=== PATIENT | female | born 1955 | race Caucasian/White ===

== ENCOUNTER 2017-05-20 15:35 | Inpatient (IN) | payer MEDICARE, SELFPAY ==
[2017-05-20 15:36] VITALS: BP 137/90; PULSE 78; RESP 18; TEMP 36.6; O2SAT 99; BMI 39.9
--- NOTE | 2017-05-20 16:06 | CT_ITS ---
STUDY: CT BRAIN WITHOUT CONTRAST REASON FOR EXAM: Female, 62 years old. Headache after trauma, hypertension RADIATION DOSAGE (If Supplied By Facility): CTDIvol = ( 44.99 ) mGy, DLP = ( 762.36 ) mGycm TECHNIQUE: Transaxial CT imaging of the brain was performed without administration of intravenous contrast material. Individualized dose optimization techniques were used for this CT. COMPARISON: 2014 FINDINGS: Normal soft tissue structures. Normal calvarium. Normal size ventricles and extra-axial spaces for the patient's age. Normal white matter tracts of the cerebral hemispheres. Normal basal ganglia and thalami. Normal brainstem. Normal cerebellum. There is no intracranial hemorrhage. There are no findings of an acute ischemic infarction. Normal visualized paranasal sinuses. CT/Brain/Head without Contrast IMPRESSION: Normal unenhanced CT scan of the brain. Electronically Signed: Linwood Stone MD at 16:50 EST , Service support ,
--- NOTE | 2017-05-20 16:07 | CT_ITS ---
STUDY: CT CERVICAL SPINE WITHOUT CONTRAST REASON FOR EXAM: Female, 62 years old. Headache and neck pain after trauma RADIATION DOSAGE (If Supplied By Facility): CTDIvol = ( 30.14 ) mGy, DLP = ( 539.97 ) mGycm TECHNIQUE: High resolution transaxial imaging was performed without contrast material. Sagittal and coronal images were reconstructed. Individualized dose optimization techniques were used for this CT. COMPARISON: 2014 FINDINGS: Normal craniovertebral junction. Normal anterior atlantoaxial articulation. Normal odontoid process. Normal cervical lordosis. Normal vertebral bodies and posterior osseous elements. There is anatomic alignment of the cervical spine. No demonstrated fracture or aggressive osseous lesion. Mild posterior disc space throughout the cervical spine, no central canal stenosis, there is bilateral foraminal narrowing. Normal relationship between C7 and T1. No upper rib fracture or pneumothorax. Normal visualized soft tissue structures. CT/Spine Cervical without Contras IMPRESSION: Mild degenerative changes, no demonstrated fracture or aggressive osseous lesion Electronically Signed: Linwood Stone MD at 16:59 EST , Service support ,
--- NOTE | 2017-05-20 16:09 | ED.VISSUMM ---
- ER Visit Summary Date of Service: 05/20/17 Chief Complaint: Fall History of Present Illness: The patient is a 62 F who slipped on ice and fell to the concrete 2 days ago, hitting the left forehead, and left side of her chest. She has been having increasing pain ever since, worse to breathe, pain in the left side of her neck that hurts to move her head. Headache that is mild and intermittent, occasional nausea. No vomiting. She had no loss of consciousness. She states she was wearing a stocking cap and a cushioned her fall. She takes no anticoagulants, she takes an occasional baby aspirin for good health but does not take them much and has not taken them in the past week. No other injuries. Physical Examination: Vitals unremarkable. No acute distress. Very tender in the left anterior ribs, less so in the sternum. No crepitance or flail or deformity. Equal breath sounds present bilaterally. Lungs are clear. Heart is regular without tachycardia. Neck is tender mostly in the left paraspinal trapezius, however she has a little C6 midline tenderness as well. All 4 extremities are atraumatic and full range of motion. Her head is atraumatic, no signs of a basilar skull fracture, no tenderness or signs of trauma where she states she hit. Test Results: Chest x-ray including left ribs series shows left lower lobe infiltrate but no obvious fracture, no pneumothorax. CT head and cervical spine are negative. After these results, labs and CT thorax were added. CT shows groundglass infiltrate in both upper lobes and the left lower lobe that may be consistent with pulmonary contusion or infection, however it is said that it looks less like infiltrate/pneumonia. Mild leukocytosis at 13. Emergency Department Course and Treatment: Patient remained stable, her pulse ox is 98% on room air. She was given morphine for pain which helped. Patient states she was coughing prior to her fall, bringing up no sputum. She had no dyspnea until her injury. It is plausible that the etiology of these pulmonary radiographic findings are traumatic, it is also possible that she has developed pneumonia before her injury, and she has no pulmonary injury. The CT did not significantly help delineate that. She states she has been coughing for a total of 8 weeks, although it is not as bad as it used to be. She has dyspnea, but in no distress. Given that the CT saw bilateral upper lobe findings as well, including the right side where she had no injury, which apparently were similar to the findings in the left lower lobe, my suspicion is that this is more likely to be infectious rather than traumatic. I discussed with Dr. Augustin who is amenable to admission. Community-acquired pneumonia antibiotics are ordered, as well as an influenza swab. Disposition: Admit Impression: Community-acquired pneumonia Left ribs contusion Closed head injury Fall due to slip on ice Left cervical strain This note was generated with eSnips dictation software. It may contain incorrect words, spelling, and punctuation that were not noted in review of the chart prior to signing ED Disposition - Plan for ED Patient: Disposition: Acute Care Hospital [facility] Chief Complaint: Fall Referrals: Olivia Gates DO [Primary Care Provider] -
--- NOTE | 2017-05-20 16:12 | ED.DCSUM_ITS ---
- ER Visit Summary Date of Service: 05/20/17 Chief Complaint: Fall History of Present Illness: The patient is a 62 F who slipped on ice and fell to the concrete 2 days ago, hitting the left forehead, and left side of her chest. She has been having increasing pain ever since, worse to breathe, pain in the left side of her neck that hurts to move her head. Headache that is mild and intermittent, occasional nausea. No vomiting. She had no loss of consciousness. She states she was wearing a stocking cap and a cushioned her fall. She takes no anticoagulants, she takes an occasional baby aspirin for good health but does not take them much and has not taken them in the past week. No other injuries. Physical Examination: Vitals unremarkable. No acute distress. Very tender in the left anterior ribs, less so in the sternum. No crepitance or flail or deformity. Equal breath sounds present bilaterally. Lungs are clear. Heart is regular without tachycardia. Neck is tender mostly in the left paraspinal trapezius, however she has a little C6 midline tenderness as well. All 4 extremities are atraumatic and full range of motion. Her head is atraumatic, no signs of a basilar skull fracture, no tenderness or signs of trauma where she states she hit. Test Results: Chest x-ray including left ribs series shows left lower lobe infiltrate but no obvious fracture, no pneumothorax. CT head and cervical spine are negative. After these results, labs and CT thorax were added. CT shows groundglass infiltrate in both upper lobes and the left lower lobe that may be consistent with pulmonary contusion or infection, however it is said that it looks less like infiltrate/pneumonia. Mild leukocytosis at 13. Emergency Department Course and Treatment: Patient remained stable, her pulse ox is 98% on room air. She was given morphine for pain which helped. Patient states she was coughing prior to her fall, bringing up no sputum. She had no dyspnea until her injury. It is plausible that the etiology of these pulmonary radiographic findings are traumatic, it is also possible that she has developed pneumonia before her injury, and she has no pulmonary injury. The CT did not significantly help delineate that. She states she has been coughing for a total of 8 weeks, although it is not as bad as it used to be. She has dyspnea, but in no distress. Given that the CT saw bilateral upper lobe findings as well , including the right side where she had no injury, which apparently were similar to the findings in the left lower lobe, my suspicion is that this is more likely to be infectious rather than traumatic. I discussed with Dr. Augustin who is amenable to admission. Community-acquired pneumonia antibiotics are ordered, as well as an influenza swab. Disposition: Admit Impression: Community-acquired pneumonia Left ribs contusion Closed head injury Fall due to slip on ice Left cervical strain This note was generated with Sk[employer]ap dictation software. It may contain incorrect words, spelling, and punctuation that were not noted in review of the chart prior to signing ED Disposition - Plan for ED Patient: Disposition: Acute Care Hospital [facility] Chief Complaint: Fall Referrals: Olivia Gates DO [Primary Care Provider] -
--- NOTE | 2017-05-20 16:25 | RAD_ITS ---
STUDY: X-RAY - UNILATERAL RIBS ( LEFT ) WITH CHEST REASON FOR EXAM: Female, 62 years old. Left-sided rib pain after fall TECHNIQUE - RIBS: 4 view(s) of the ribs. TECHNIQUE - CHEST: Single PA view of the chest. COMPARISON: None. FINDINGS - RIBS: There is severe demineralization of the osseous structures which diminishes the diagnostic sensitivity of this examination, however there is no visualized rib fracture. FINDINGS - CHEST: Lungs are expanded. Right lung is clear. There is opacification in the left lower lobe likely pneumonia but a pulmonary contusion cannot be excluded. There is no demonstrated pleural abnormality. Normal size heart. Normal mediastinum and dave. Normal visualized pulmonary arteries. Normal visualized aortic arch and descending thoracic aorta. Normal visualized thoracic spine. Normal visualized ribs, clavicles, and shoulders. There is no demonstrated abnormality of the visualized soft tissue structures of the upper abdomen. RAD/Ribs Uni Min 3V w/PA Chest IMPRESSION: RIBS: Demineralization of the osseous structures, no demonstrated acute displaced rib fracture, pleural thickening, or pneumothorax CHEST: Opacification the left lower lung field likely infiltrate but pulmonary contusion cannot be completely excluded. Electronically Signed: Linwood Stone MD at 16:56 EST , Service support ,
[2017-05-20] MEDS: oxyCODONE 5 MG Tablet PO (16:37)
[2017-05-20 18:02] VITALS: BP 146/72; PULSE 68; RESP 16; O2SAT 94
--- NOTE | 2017-05-20 19:08 | CT_ITS ---
STUDY: CT CHEST WITHOUT CONTRAST REASON FOR EXAM: Female, 62 years old. Trauma. Sternal pain and left rib pain. RADIATION DOSAGE (If Supplied By Facility): CTDIvol = ( 19.81 ) mGy, DLP = ( 668.39 ) mGycm TECHNIQUE: Transaxial imaging was performed without the administration of intravenous contrast material. Coronal and sagittal reformatted images were created. Individualized dose optimization techniques were used for this CT. COMPARISON: None FINDINGS: There is patchy groundglass opacity noted in the right upper lobe, left upper lobe and left lower lobe. There are no focal infiltrates or pleural effusions. There are no pulmonary nodules or masses. There is no pneumothorax. The heart and pericardium are within normal limits. There is no thoracic lymphadenopathy. There is no evidence of thoracic aortic aneurysm. Images through the upper abdomen demonstrate no significant abnormality. The visualized osseous structures are intact. There is no acute fracture or dislocation. CT/Chest without Contrast IMPRESSION: Patchy ground glass opacity in the right upper lobe, left upper lobe and left lower lobe. This may be due to infection, inflammation or edema. In the setting of trauma, pulmonary contusion is also in the differential diagnosis. No evidence of fracture or dislocation in the visualized thoracic osseous structures. Electronically Signed: Barrie Smith, at 20:02 EST Tel , Service support ,
[2017-05-20 19:40] LABS: Absolute Lymphocyte Count 4.67 X10^3/ul (0.83-4.51); Absolute Neutrophil Count 7.6 X10^3/uL (2.0-7.7); Basophil# 0.03 X10^3/uL; Basophil% 0.2 % (0-1); Eosinophil# 0.15 X10^3/uL; Eosinophils% 1.1 % (0-5); Hematocrit 41.1 % (37-47); Hemoglobin 13.1 g/dl (12.0-15.0); Lymphocyte # 4.67 X10^3/ul (4.0); Lymphocyte % 34.7 % (19-41); Mean Corp Hgb Conc 31.9 g/gl (32-36); Mean Corpuscular Hgb 27.3 pg (27.0-32.0); Mean Corpuscular Volume 85.8 fL (81-99); Mean Platelet Vol. 9.2 fl (6.2-12.0); Monocyte# 0.93 X10^3/uL; Monocyte% 6.9 % (0-10); Neutrophil # 7.57 X10^3/uL (2.7-7.7); Neutrophil % 56.4 % (47-70); POSITIVE COUNT NO; POSITIVE DIFFERENTIAL NO; POSITIVE MORPHOLOGY NO; Platelet Count 300 K/mm3 (150-450); RBC Distribution Width CV 15.4 % (11.6-14.6); RBC Distribution Width SD 48.9 fl (35.1-43.9); Red Blood Count 4.79 M/mm3 (4.2-5.4); White Blood Count 13.4 K/mm3 (4.4-11.0)
[2017-05-20 20:00] VITALS: BP 122/62; PULSE 69; RESP 16; O2SAT 98
[2017-05-20 20:02] LABS: Anion Gap 8 (5-15); BUN 19 mg/dL (7-18); BUN/Creat Ratio 23.3 RATIO (10-20); Calcium,Total 8.8 mg/dL (8.5-10.1); Chloride 106 mmol/L (98-107); Creatinine, Serum 0.81 mg/dL (0.55-1.02); EST Glomerular Filtration Rate 75 mL/min (>60); Est Glom Filt Rate - Afr Amer 91 mL/min (>60); Estimated Creatinine Clearance 56.23 ml/min; Glucose 88 mg/dL (74-106); Potassium 3.6 mmol/L (3.5-5.1); Sodium Level 142 mmol/L (136-145)
[2017-05-20 21:26] VITALS: BP 132/52; PULSE 75; RESP 18; TEMP 36.8; O2SAT 95
[2017-05-20] MEDS: Ceftriaxone 1 GM/50 ML BAG IV (21:26)
--- NOTE | 2017-05-20 22:10 | HP.PCM_ITS ---
Problem List (1) CAP (community acquired pneumonia) Status: Acute (2) COCHRAN (dyspnea on exertion) Status: Acute (3) GERD (gastroesophageal reflux disease) Status: Acute (4) HLD (hyperlipidemia) Status: Acute (5) HTN (hypertension) Status: Acute (6) Mixed anxiety and depressive disorder Status: Acute (7) Morbid obesity with BMI of 40.0-44.9, adult Status: Acute (8) Chronic back pain Status: Chronic History of Present Illness Date of Admission: 05/20/17 Chief Complaint: CAP The patient is a 62 year old female w/ h/o GERD, HTN, and chronic back pain admitted for CAP. She slipped on ice 2 days ago and fell onto her left side on concrete. She hit her left forehead, and side of her chest. She has left sided chest pain ever since the fall. Deep breathe worsened the pain. Nothing appeared to improve the pain. Pain is sharp and episodic. Pain is severe. The frequency and intensity of the pain have increased. She was also recently recovered from acute bronchitis. She was treated initially with steroid but has been off steroid for weeks. Her cough has persisted and worsened. Past Medical History Past Medical History (Chronic Problems): Chronic Problems Chronic back pain (Chronic) Allergies No Known Allergies Allergy (Verified 05/20/17 15:38) Home Medications: Ambulatory Orders Medication Instructions Recorded Paroxetine HCl [Paxil] 60 mg PO DAILY 01/29/13 Pregabalin [Lyrica] 150 mg PO BID 01/29/13 Trazodone HCl [Desyrel] 100 mg PO QHS 01/29/13 Hydrocodone/Acetaminophen [Vicodin 1 - 2 tablet PO BID 10/16/13 5-300 mg Tablet] Esomeprazole Mag Trihydrate 40 mg PO QHS 05/16/14 [Nexium] Losartan Potassium [Cozaar] 50 mg PO DAILY 05/16/14 Levothyroxine [Synthroid] 50 mcg PO DAILY 10/03/14 Naproxen [Naprosyn] 500 mg PO BID #20 tablet 06/18/15 Lorazepam [Ativan] 2 mg PO BID 10/11/16 Mometasone Furoate [Nasonex] 2 spray NASAL QHS 10/11/16 Albuterol Inhaler [Ventolin Hfa 1 - 2 puff INHALATION Q6H PRN PRN 05/20/17 (SP)] Cholecalciferol (Vitamin D3) 50,000 units PO KEITA 05/20/17 [Vitamin D3] Pantoprazole Sodium [Protonix] 40 mg PO DAILY 05/20/17 Surgical History: cholecystectomy, herniorrhaphy, hysterectomy, - Psychiatric History: Anxiety, Depression 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 Smoking Status: Never smoker Alcohol: None Drugs: None - *Family History Maternal History Items: No pertinent history Review of Systems Constitutional: Denies: Chills, Fever, Weight Change HEENT: Denies: Head Aches, Sinus Congestion, Sinus Drainage Cardiovascular: Denies: Chest Pain, Palpitations Respiratory: Denies: Cough, Shortness of breath at rest, Sputum production Gastrointestinal: Denies: Abdominal Pain, Nausea, Vomiting Genitourinary: Denies: Dysuria Musculoskeletal: Denies: Joint Pain, Joint Tenderness Skin: Denies: Rash, Wounds Neurological: Denies: Numbness, Tingling, Focal weakness Psychiatric: Denies: Anxiety, Depression, Homicidal Ideations, Suicidal Ideations Hematologic/ Lymphatic: Denies: Easy Bruising, Easy Bleeding VTE Information - Inpt Only VTE Present on Admission: No VTE Mechan Device Prophylaxis: SCD's VTE Pharm Prophylaxis ordered?: Yes Patient Problems: Active and Suspected Problems CAP (community acquired pneumonia) (Acute) - Physical Exam General: Alert, Oriented x3, Cooperative HEENT: Atraumatic, PERRLA, EOMI, Normocephalic Neck: Supple, No JVD, Negative Carotid Bruits Lungs: Clear to auscultation, Normal air movement Cardiovascular: Regular rate, No murmurs Abdomen: Bowel Sounds Present, Soft, Non Tender Extremities: No edema, Capillary Refill Less than 3 Seconds Skin: No rashes, No breakdown Musculoskeletal: No Tenderness to Palpation of Joints or Extremities Neurological: Cranial nerves II-XII grossly intact Psych/Mental Status: Normal Affect, Appropriate Vital Signs Temp Pulse Resp BP Pulse Ox 97.9 F 69 16 122/62 H 98 05/20/17 15:36 05/20/17 20:00 05/20/17 20:00 05/20/17 20:00 05/20/17 20:00 Assessment/Plan Active and Suspected Problems CAP (community acquired pneumonia) (Acute) 62 year old female w/ h/o GERD, HTN, and chronic back pain admitted for CAP. 1) CAP: Will start ceftriaxone and azithromycin. Cultures pending. CT concerning for contusion vs infiltrate. Monitor. 2) Chest pain: Probably contusion vs infection. Supportive care. 3) HTN: Resume home meds. Monitor. 4) Prophylaxis: Heparin / SCD.
[2017-05-20 22:17] VITALS: BP 119/63; PULSE 76; RESP 16; O2SAT 92
[2017-05-20 23:25] VITALS: BP 119/61; PULSE 75; RESP 18; TEMP 36.5; O2SAT 96
[2017-05-20 23:29] VITALS: BMI 39.7
[2017-05-20 23:32] VITALS: BMI 39.8
[2017-05-21] VITALS (8 sets, daily range): BP systolic 109–145; BP diastolic 57–81; PULSE 62–78; RESP 14–18; TEMP 36.3–36.7; O2SAT 95–98
[2017-05-21] MEDS: 0.9% Normal Saline 1,000 ML 100 ML IV ×3 (00:17→20:54)
[2017-05-21] MEDS: Albuterol 2.5 MG/3 ML VIAL.NEB. INHALATION ×4 (00:28→19:04)
[2017-05-21] MEDS: Pantoprazole Sodium 40 MG Tablet PO ×3 (00:53→22:29)
[2017-05-21] MEDS: traZODone 50 MG Tablet PO (00:53)
[2017-05-21] MEDS: Pregabalin 75 MG Capsule 150 MG PO ×3 (00:53→22:29)
[2017-05-21] MEDS: LORazepam 1 MG Tablet PO ×2 (00:53→10:33)
[2017-05-21 03:35] LABS: Color, Urine Straw (Yellow); Glucose, Dipstick Normal (Normal); Ketone-Dipstick 5 mg/dl (Negative); Leukocyte Esterase-Dipstick Negative /ul (Negative); Nitrite-Dipstick Negative (Negative); Occult Blood-Urine Negative /ul (Negative); Protein-Dipstick Negative (Negative); Urine Bilirubin Dipstick Negative (Negative); Urine Clarity Clear (Clear); Urine Urobilinogen Normal (Normal)
[2017-05-21] MEDS: Levothyroxine 25 MCG TABLET PO (05:22)
--- NOTE | 2017-05-21 05:30 | RAD_ITS ---
STUDY: X-RAY CHEST REASON FOR EXAM: Female, 62 years old. Pain under breast with SOB TECHNIQUE: Frontal and lateral views of the chest. COMPARISON: May 20 FINDINGS: Improving left basilar aeration. Improving right midlung atelectasis. There is no demonstrated pleural abnormality. Normal size heart. Normal mediastinum and dave. Normal visualized pulmonary arteries. Normal visualized aortic arch and descending thoracic aorta. There are diffuse degenerative changes of the visualized thoracic spine. Normal visualized ribs, clavicles, and shoulders. There is no demonstrated abnormality of the visualized soft tissue structures of the upper abdomen. RAD/Chest PA and Lateral IMPRESSION: Improving left basilar aeration. Improving right midlung atelectasis. Electronically Signed: Tryo Shea MD at 6:05 EST Tel , Service support ,
[2017-05-21] MEDS: Budesonide Respules 0.5 MG/2 ML AMPUL.NEB. INHALATION ×2 (06:50→19:04)
--- NOTE | 2017-05-21 08:44 | PCM.PROGNOTE ---
Patient Problems: Active and Suspected Problems CAP (community acquired pneumonia) (Acute) Subjective: Chief complaint: Follow-up after admission for mechanical fall, left lateral chest pain/confusion, closed head injury and suspected community-acquired pneumonia. Patient seen and examined. No acute events overnight. Today, she is feeling better. Left lateral chest pain is getting better. Now, she is able to take a deep breaths. Reported mild cough, no sputum production. Denies fever or chills. Denied headache, vision changes. Her vital signs are stable, afebrile, pulse ox is 96% on room air. - Physical Exam General: Alert, Oriented x3, Cooperative, No apparent distress HEENT: Atraumatic, PERRLA, EOMI Oral: Moist Mucosa, No Gingival or Mucosal Lesions/ Ulcerations Neck: Supple, No JVD, Negative Carotid Bruits, Trachea Midline, Thyroid Normal Size and Texture Lungs: Clear to auscultation, No rhonchi, No wheeze, No rales, Diminished, - - Decreased breath sounds at the bases, otherwise clear. Cardiovascular: Regular rate, Regular Rhythm, Normal S1, Normal S2, No murmurs Abdomen: Bowel Sounds Present, Soft, Non Tender, Non-Distended, No Hepato-splenomegaly Extremities: No clubbing, No cyanosis, No edema Skin: No rashes, No breakdown Lymphatic: No Cervical, Supraclavicular, or Inguinal Adenopathy Neurological: Cranial nerves II-XII grossly intact, Motor Exam 5/5 strength throughout Psych/Mental Status: Normal Affect, Appropriate, Alert and oriented to time, place, person, mood and affect Vital Signs Temp Pulse Resp BP Pulse Ox 97.8 F 64 16 109/57 L 96 05/21/17 05:15 05/21/17 06:48 05/21/17 06:48 05/21/17 05:15 05/21/17 05:15 Oxygen Delivery Method Room Air Weight: 217 lb 6.012 oz Body Mass Index (BMI) 39.7 Intake and Output for Last 24 Hours 05/19/17 05/20/17 05/21/17 23:59 23:59 23:59 Intake Total 492 / 492 Balance 492 / 492 Microbiology Past 72 Hours 05/21/17 00:16 Streptococcus pneumoniae Antigen (M - Final Urine Catheter - Catheter 05/21/17 00:16 Legionella Antigen - Final Urine Catheter - Catheter Laboratory Tests Past 24 Hrs 05/21/17 00:16 Urine Color Straw Urine Clarity Clear Urine pH 6.0 Ur Specific Falcon 1.010 Urine Protein Negative Urine Glucose (UA) Normal Urine Ketones 5 H Urine Occult Blood Negative Urine Nitrite Negative Urine Bilirubin Negative Urine Urobilinogen Normal Ur Leukocyte Esterase Negative Clinical Impression(s) from Imaging Studies Brain CT 05/20/17 16:06 IMPRESSION: Normal unenhanced CT scan of the brain. Electronically Signed: Linwood Stone MD at 16:50 EST , Service support , Cervical Spine CT 05/20/17 16:07 IMPRESSION: Mild degenerative changes, no demonstrated fracture or aggressive osseous lesion Electronically Signed: Linwood Stone MD at 16:59 EST , Service support , Ribs w/Chest X-Ray 05/20/17 16:25 IMPRESSION: RIBS: Demineralization of the osseous structures, no demonstrated acute displaced rib fracture, pleural thickening, or pneumothorax CHEST: Opacification the left lower lung field likely infiltrate but pulmonary contusion cannot be completely excluded. Electronically Signed: Linwood Stone MD at 16:56 EST , Service support , Chest CT 05/20/17 19:08 IMPRESSION: Patchy ground glass opacity in the right upper lobe, left upper lobe and left lower lobe. This may be due to infection, inflammation or edema. In the setting of trauma, pulmonary contusion is also in the differential diagnosis. No evidence of fracture or dislocation in the visualized thoracic osseous structures. Electronically Signed: Barrie Smith, at 20:02 EST Tel , Service support , Chest X-Ray 05/21/17 05:30 IMPRESSION: Improving left basilar aeration. Improving right midlung atelectasis. Electronically Signed: Troy Shea MD at 6:05 EST Tel , Service support , Assessment/Plan Active and Suspected Problems CAP (community acquired pneumonia) (Acute) This is a 62 years old female patient presented to the emergency room because of mechanical fall, complained of left lateral chest pain, had closed head injury and was treated as a case of possible or suspected community-acquired pneumonia. #1 mechanical fall/left chest and ribs contusion: Chest x-ray showed no acute rib fractures, revealed questionable left lower lobe infiltrate which could be also due to lung contusion. CT chest again showed no evidence of acute rib fractures, revealed groundglass opacity in the right upper lobe, left upper lobe and left lower lobe which again could be due to pneumonia which is less likely but possibly due to pulmonary contusion. She is on IV morphine as needed for pain. Patient reported improvement of her symptoms, vital signs are stable, afebrile, pulse ox is normal on room air. Plan: Continue same treatment, ambulate, incentive spirometer, pain control. #2 closed head injury: Secondary to mechanical fall, CT scan brain showed no acute findings. She denied any headache, focal weakness. CT scan cervical spine also revealed no acute fractures or dislocations. Plan for pain control. #3 suspected community-acquired pneumonia: At this time, I doubt pneumonia. She was started empirically on IV Rocephin and Zithromax. CT scan chest revealed groundglass opacities in the right and left upper lobes as well as left lower lobe. She reported mild cough, no sputum production. She is afebrile, she has mild leukocytosis. Blood cultures are pending. At this time, we will keep her on IV antibiotics empirically. #4 hypertension: Blood pressure stable, continue losartan. #5 hypothyroidism: Continue levothyroxine. #6 GERD: Continue PPI. #7 chronic back pain: Continue Lyrica and IV morphine as needed. #8 depression/anxiety: Continue Ativan, Paxil and trazodone. #9 DVT prophylaxis: Subcu Lovenox. This note was generated with [employer]o Softwareation software. It may contain incorrect words, spelling, and punctuation that were not noted in checking the note before signing. Code Visit Inpatient E&M: 07990 Subs Hosp L2
--- NOTE | 2017-05-21 08:54 | PN_ITS ---
Patient Problems: Active and Suspected Problems CAP (community acquired pneumonia) (Acute) Subjective: Chief complaint: Follow-up after admission for mechanical fall, left lateral chest pain/confusion, closed head injury and suspected community-acquired pneumonia. Patient seen and examined. No acute events overnight. Today, she is feeling better. Left lateral chest pain is getting better. Now, she is able to take a deep breaths. Reported mild cough, no sputum production. Denies fever or chills. Denied headache, vision changes. Her vital signs are stable, afebrile , pulse ox is 96% on room air. - Physical Exam General: Alert, Oriented x3, Cooperative, No apparent distress HEENT: Atraumatic, PERRLA, EOMI Oral: Moist Mucosa, No Gingival or Mucosal Lesions/ Ulcerations Neck: Supple, No JVD, Negative Carotid Bruits, Trachea Midline, Thyroid Normal Size and Texture Lungs: Clear to auscultation, No rhonchi, No wheeze, No rales, Diminished, - - Decreased breath sounds at the bases, otherwise clear. Cardiovascular: Regular rate, Regular Rhythm, Normal S1, Normal S2, No murmurs Abdomen: Bowel Sounds Present, Soft, Non Tender, Non-Distended, No Hepato- splenomegaly Extremities: No clubbing, No cyanosis, No edema Skin: No rashes, No breakdown Lymphatic: No Cervical, Supraclavicular, or Inguinal Adenopathy Neurological: Cranial nerves II-XII grossly intact, Motor Exam 5/5 strength throughout Psych/Mental Status: Normal Affect, Appropriate, Alert and oriented to time, place, person, mood and affect Vital Signs Temp Pulse Resp BP Pulse Ox 97.8 F 64 16 109/57 L 96 05/21/17 05:15 05/21/17 06:48 05/21/17 06:48 05/21/17 05:15 05/21/17 05:15 Oxygen Delivery Method Room Air Weight: 217 lb 6.012 oz Body Mass Index (BMI) 39.7 Intake and Output for Last 24 Hours 05/19/17 05/20/17 05/21/17 23:59 23:59 23:59 Intake Total 492 / 492 Balance 492 / 492 Microbiology Past 72 Hours 05/21/17 00:16 Streptococcus pneumoniae Antigen (M - Final Urine Catheter - Catheter 05/21/17 00:16 Legionella Antigen - Final Urine Catheter - Catheter Laboratory Tests Past 24 Hrs 05/21/17 00:16 Urine Color Straw Urine Clarity Clear Urine pH 6.0 Ur Specific Edson 1.010 Urine Protein Negative Urine Glucose (UA) Normal Urine Ketones 5 H Urine Occult Blood Negative Urine Nitrite Negative Urine Bilirubin Negative Urine Urobilinogen Normal Ur Leukocyte Esterase Negative Clinical Impression(s) from Imaging Studies Brain CT 05/20/17 16:06 IMPRESSION: Normal unenhanced CT scan of the brain. Electronically Signed: Linwood Stone MD at 16:50 EST , Service support , Cervical Spine CT 05/20/17 16:07 IMPRESSION: Mild degenerative changes, no demonstrated fracture or aggressive osseous lesion Electronically Signed: Linwood Stone MD at 16:59 EST , Service support , Ribs w/Chest X-Ray 05/20/17 16:25 IMPRESSION: RIBS: Demineralization of the osseous structures, no demonstrated acute displaced rib fracture, pleural thickening, or pneumothorax CHEST: Opacification the left lower lung field likely infiltrate but pulmonary contusion cannot be completely excluded. Electronically Signed: Linwood Stone MD at 16:56 EST , Service support , Chest CT 05/20/17 19:08 IMPRESSION: Patchy ground glass opacity in the right upper lobe, left upper lobe and left lower lobe. This may be due to infection, inflammation or edema. In the setting of trauma, pulmonary contusion is also in the differential diagnosis. No evidence of fracture or dislocation in the visualized thoracic osseous structures. Electronically Signed: Barrie Smith, at 20:02 EST Tel , Service support , Chest X-Ray 05/21/17 05:30 IMPRESSION: Improving left basilar aeration. Improving right midlung atelectasis. Electronically Signed: Troy Shea MD at 6:05 EST Tel , Service support , Assessment/Plan Active and Suspected Problems CAP (community acquired pneumonia) (Acute) This is a 62 years old female patient presented to the emergency room because of mechanical fall, complained of left lateral chest pain, had closed head injury and was treated as a case of possible or suspected community-acquired pneumonia. #1 mechanical fall/left chest and ribs contusion: Chest x-ray showed no acute rib fractures, revealed questionable left lower lobe infiltrate which could be also due to lung contusion. CT chest again showed no evidence of acute rib fractures, revealed groundglass opacity in the right upper lobe, left upper lobe and left lower lobe which again could be due to pneumonia which is less likely but possibly due to pulmonary contusion. She is on IV morphine as needed for pain. Patient reported improvement of her symptoms, vital signs are stable, afebrile, pulse ox is normal on room air. Plan: Continue same treatment , ambulate, incentive spirometer, pain control. #2 closed head injury: Secondary to mechanical fall, CT scan brain showed no acute findings. She denied any headache, focal weakness. CT scan cervical spine also revealed no acute fractures or dislocations. Plan for pain control. #3 suspected community-acquired pneumonia: At this time, I doubt pneumonia. She was started empirically on IV Rocephin and Zithromax. CT scan chest revealed groundglass opacities in the right and left upper lobes as well as left lower lobe. She reported mild cough, no sputum production. She is afebrile, she has mild leukocytosis. Blood cultures are pending. At this time , we will keep her on IV antibiotics empirically. #4 hypertension: Blood pressure stable, continue losartan. #5 hypothyroidism: Continue levothyroxine. #6 GERD: Continue PPI. #7 chronic back pain: Continue Lyrica and IV morphine as needed. #8 depression/anxiety: Continue Ativan, Paxil and trazodone. #9 DVT prophylaxis: Subcu Lovenox. This note was generated with [employer] software. It may contain incorrect words, spelling, and punctuation that were not noted in checking the note before signing. Code Visit Inpatient E&M: 45948 Subs Hosp L2
[2017-05-21] MEDS: guaiFENesin 1,200 MG Tablet 1200 MG PO ×2 (10:32→22:29)
[2017-05-21] MEDS: Fluticasone 0.05% 1 SPRAY NASAL.SRY 2 SPRAY NASAL (10:33)
[2017-05-21] MEDS: Losartan Potassium 50 MG Tablet PO (10:33)
[2017-05-21] MEDS: Ceftriaxone 1 GM/50 ML BAG IV (10:36)
[2017-05-21] MEDS: 0.9% NaCl Peripheral Flush Adult/Peds IV ×2 (10:37→15:21)
[2017-05-21] MEDS: LORazepam 1 MG Tablet 2 MG PO (22:29)
[2017-05-22] VITALS (7 sets, daily range): BP systolic 120–145; BP diastolic 56–71; PULSE 68–80; RESP 16–20; TEMP 36.6–37; O2SAT 93–96
[2017-05-22] MEDS: Levothyroxine 50 MCG Tablet PO (05:14)
[2017-05-22 06:09] LABS: Absolute Lymphocyte Count 3.04 X10^3/ul (0.83-4.51); Absolute Neutrophil Count 3.5 X10^3/uL (2.0-7.7); Basophil# 0.05 X10^3/uL; Basophil% 0.7 % (0-1); Eosinophil# 0.15 X10^3/uL; Hematocrit 36.2 % (37-47); Hemoglobin 11.2 g/dl (12.0-15.0); Lymphocyte # 3.04 X10^3/ul (4.0); Lymphocyte % 40.7 % (19-41); Mean Corp Hgb Conc 30.9 g/gl (32-36); Mean Corpuscular Volume 87.2 fL (81-99); Mean Platelet Vol. 9.8 fl (6.2-12.0); Monocyte# 0.65 X10^3/uL; Monocyte% 8.7 % (0-10); Neutrophil # 3.49 X10^3/uL (2.7-7.7); Neutrophil % 46.7 % (47-70); Platelet Count 283 K/mm3 (150-450); RBC Distribution Width CV 16.1 % (11.6-14.6); RBC Distribution Width SD 50.2 fl (35.1-43.9); Red Blood Count 4.15 M/mm3 (4.2-5.4); White Blood Count 7.5 K/mm3 (4.4-11.0)
[2017-05-22 06:32] LABS: POSITIVE COUNT NO; POSITIVE DIFFERENTIAL NO; POSITIVE MORPHOLOGY NO
[2017-05-22] MEDS: Budesonide Respules 0.5 MG/2 ML AMPUL.NEB. INHALATION ×2 (06:42→18:53)
[2017-05-22] MEDS: Albuterol 2.5 MG/3 ML VIAL.NEB. INHALATION ×3 (06:42→18:53)
[2017-05-22] MEDS: 0.9% Normal Saline 1,000 ML 100 ML IV ×2 (07:19→18:18)
--- NOTE | 2017-05-22 10:32 | PCM.PN.HOSP ---
Patient Problems: Active and Suspected Problems CAP (community acquired pneumonia) (Acute) Subjective: Patient is still has cough, left inframammary chest wall pain. No fever. Vitals/I&O's: Vital Signs Temp Pulse Resp BP Pulse Ox 97.9 F 68 18 120/56 L 93 05/22/17 02:55 05/22/17 06:42 05/22/17 06:42 05/22/17 02:55 05/22/17 02:55 Oxygen Delivery Method Room Air Weight: 217 lb 6.012 oz Body Mass Index (BMI) 39.7 Intake and Output for Last 24 Hours 05/20/17 05/21/17 05/22/17 23:59 23:59 23:59 Intake Total 4102 / 4102 1096 / 1096 Output Total 1999 / 1999 1000 / 1000 Balance 210 / 2102 96 / 96 General: Alert, Oriented x3, Cooperative HEENT: Atraumatic, PERRLA, EOMI, Normocephalic Neck: Supple, No JVD, Negative Carotid Bruits Lungs: No rhonchi, No wheeze, No rales, Diminished, - - Reproducible tenderness present over left chest wall anteriorly inframammary. Cardiovascular: Regular rate, Regular Rhythm, Normal S2, No murmurs Abdomen: Bowel Sounds Present, Soft, Non Tender Extremities: No edema, Capillary Refill Less than 3 Seconds Skin: No rashes, No breakdown Musculoskeletal: No Tenderness to Palpation of Joints or Extremities Neurological: Cranial nerves II-XII grossly intact Psych/Mental Status: Normal Affect, Appropriate Microbiology Past 72 Hours 05/21/17 00:16 Urine Catheter - Catheter Streptococcus pneumoniae Antigen (M - Final 05/21/17 00:16 Urine Catheter - Catheter Legionella Antigen - Final Laboratory Results 05/22/17 05:04: WBC 7.5, RBC 4.15 L, Hgb 11.2 L, Hct 36.2 L, MCV 87.2, MCH 27.0, MCHC 30.9 L, RDW 16.1 H, RDW Differential 50.2 H, Plt Count 283, MPV 9.8, Immature Gran % (Auto) 1.200 H, Neut % (Auto) 46.7 L, Lymph % (Auto) 40.7, [place] % (Auto) 8.7, Eos % (Auto) 2.0, Baso % (Auto) 0.7, Absolute Neuts (auto) 3.5, Absolute Lymphs (auto) 3.04, Total Counted Not Reportable Current Medications Acetaminophen (Tylenol) 650 mg PO Q4H PRN PRN PRN Reason: FEVER Albuterol Sulfate (Ventolin Aerosols) 2.5 mg INHALATION Q6HWA.RT [facility] Last Admin: 05/22/17 06:42 Dose: 2.5 mg Benzonatate (Tessalon Perle) 200 mg PO TID GILA Budesonide (Pulmicort Aerosol) 0.5 mg INHALATION Q12H.RT [facility] Last Admin: 05/22/17 06:42 Dose: 0.5 mg Ergocalciferol (Vitamin D) 50,000 unit PO KEITA [facility] Last Admin: 05/21/17 10:34 Dose: 50,000 unit Fluticasone Propionate (Flonase Nasal [place]) 2 spray NASAL DAILY [facility] Last Admin: 05/21/17 10:33 Dose: 2 spray Guaifenesin (Mucinex) 1,200 mg PO BID [facility] Last Admin: 05/21/17 22:29 Dose: 1,200 mg Heparin Sodium (Porcine) (Heparin Na) 5,000 unit SC Q8 [facility] Last Admin: 05/22/17 05:15 Dose: 5,000 u Ceftriaxone Sodium (Rocephin) 1 gm in 50 mls @ 100 mls/hr IV Q24 [facility] Last Admin: 05/21/17 10:36 Dose: 100 mls/hr Sodium Chloride () 1,000 mls @ 100 mls/hr IV .Q10H [facility] Last Admin: 05/22/17 07:19 Dose: 100 mls/hr Azithromycin 500 mg/ Dextrose 255 mls @ 250 mls/hr IV Q24 [facility] Stop: 05/23/17 11:02 Last Admin: 05/21/17 09:15 Dose: 250 mls/hr Levothyroxine Sodium (Synthroid) 50 mcg PO DAILY@0600 [facility] Last Admin: 05/22/17 05:14 Dose: 50 mcg Lorazepam (Ativan) 2 mg PO BID [facility] Last Admin: 05/21/17 22:29 Dose: 2 mg Losartan Potassium (Cozaar) 50 mg PO DAILY [facility] Last Admin: 05/21/17 10:33 Dose: 50 mg Morphine Sulfate (Morphine) 1 - 2 mg IV Q4H PRN PRN PRN Reason: Moderate Pain (pain scale 4-5) Last Admin: 05/21/17 20:54 Dose: 2 mg Pantoprazole Sodium (Protonix) 40 mg PO BID [facility] Last Admin: 05/21/17 22:29 Dose: 40 mg Paroxetine HCl (Paxil) 60 mg PO DAILY [facility] Last Admin: 05/21/17 10:32 Dose: 60 mg Phenazopyridine HCl (Azo Standard) 190 mg PO BID PRN PRN PRN Reason: PAIN Pregabalin (Lyrica) 150 mg PO BID [facility] Last Admin: 05/21/17 22:29 Dose: 150 mg Sodium Chloride () 5 - 30 ml IV UD PRN PRN Reason: SALINE FLUSH Last Admin: 05/21/17 15:21 Dose: 10 ml Trazodone HCl (Desyrel) 100 mg PO QHS [facility] Last Admin: 05/21/17 22:28 Dose: 100 mg Assessment/Plan Active and Suspected Problems CAP (community acquired pneumonia) (Acute) This is a 62 years old female patient presented to the emergency room because of mechanical fall, complained of left lateral chest pain, had closed head injury and was treated as a case of possible or suspected community-acquired pneumonia. #1 mechanical fall/left chest and ribs contusion: Chest x-ray showed no acute rib fractures, revealed questionable left lower lobe infiltrate which could be also due to lung contusion. CT chest again showed no evidence of acute rib fractures, revealed groundglass opacity in the right upper lobe, left upper lobe and left lower lobe which again could be due to pneumonia which is less likely but possibly due to pulmonary contusion. She is on IV morphine as needed for pain. Patient reported improvement of her symptoms, vital signs are stable, afebrile, pulse ox is normal on room air. Plan: Continue same treatment, ambulate, incentive spirometer, pain control. #2 closed head injury: Secondary to mechanical fall, CT scan brain showed no acute findings. She denied any headache, focal weakness. CT scan cervical spine also revealed no acute fractures or dislocations. Plan for pain control. #3 suspected community-acquired pneumonia: At this time, I doubt pneumonia. She was started empirically on IV Rocephin and Zithromax. CT scan chest revealed groundglass opacities in the right and left upper lobes as well as left lower lobe. She reported mild cough, no sputum production. She is afebrile, she has mild leukocytosis. Blood cultures are negative for 24 hours. At this time, we will keep her on IV antibiotics empirically. Blood culture negative for 48 hours and patient has not spiked temperature, and safely discontinue IV antibiotics. #4 hypertension: Blood pressure stable, continue losartan. #5 hypothyroidism: Continue levothyroxine. #6 GERD: Continue PPI. #7 chronic back pain: Continue Lyrica and IV morphine as needed. #8 depression/anxiety: Continue Ativan, Paxil and trazodone. #9 DVT prophylaxis: Subcu Lovenox. Clinical Impression(s) from Imaging Studies Brain CT 05/20/17 16:06 IMPRESSION: Normal unenhanced CT scan of the brain. Electronically Signed: Linwood Stone MD at 16:50 EST , Service support , Cervical Spine CT 05/20/17 16:07 IMPRESSION: Mild degenerative changes, no demonstrated fracture or aggressive osseous lesion Electronically Signed: Linwood Stone MD at 16:59 EST , Service support , Ribs w/Chest X-Ray 05/20/17 16:25 IMPRESSION: RIBS: Demineralization of the osseous structures, no demonstrated acute displaced rib fracture, pleural thickening, or pneumothorax CHEST: Opacification the left lower lung field likely infiltrate but pulmonary contusion cannot be completely excluded. Electronically Signed: Linwood Stone MD at 16:56 EST , Service support , Chest CT 05/20/17 19:08 IMPRESSION: Patchy ground glass opacity in the right upper lobe, left upper lobe and left lower lobe. This may be due to infection, inflammation or edema. In the setting of trauma, pulmonary contusion is also in the differential diagnosis. No evidence of fracture or dislocation in the visualized thoracic osseous structures. Electronically Signed: Barrie Smith, at 20:02 EST Tel , Service support , Chest X-Ray 05/21/17 05:30 IMPRESSION: Improving left basilar aeration. Improving right midlung atelectasis. Electronically Signed: Troy Shea MD at 6:05 EST Tel , Service support , This note was generated with [employer] dictation software. Every effort was made to ensure accuracy, however computerized armature straightener mistakes may persist. Code Visit Inpatient E&M: 78653 Subs Hosp L3
--- NOTE | 2017-05-22 10:37 | PN_ITS ---
Patient Problems: Active and Suspected Problems CAP (community acquired pneumonia) (Acute) Subjective: Patient is still has cough, left inframammary chest wall pain. No fever. Vitals/I&O's: Vital Signs Temp Pulse Resp BP Pulse Ox 97.9 F 68 18 120/56 L 93 05/22/17 02:55 05/22/17 06:42 05/22/17 06:42 05/22/17 02:55 05/22/17 02:55 Oxygen Delivery Method Room Air Weight: 217 lb 6.012 oz Body Mass Index (BMI) 39.7 Intake and Output for Last 24 Hours 05/20/17 05/21/17 05/22/17 23:59 23:59 23:59 Intake Total 4102 / 4102 1096 / 1096 Output Total 1999 / 1999 1000 / 1000 Balance 210 / 2102 96 / 96 General: Alert, Oriented x3, Cooperative HEENT: Atraumatic, PERRLA, EOMI, Normocephalic Neck: Supple, No JVD, Negative Carotid Bruits Lungs: No rhonchi, No wheeze, No rales, Diminished, - - Reproducible tenderness present over left chest wall anteriorly inframammary. Cardiovascular: Regular rate, Regular Rhythm, Normal S2, No murmurs Abdomen: Bowel Sounds Present, Soft, Non Tender Extremities: No edema, Capillary Refill Less than 3 Seconds Skin: No rashes, No breakdown Musculoskeletal: No Tenderness to Palpation of Joints or Extremities Neurological: Cranial nerves II-XII grossly intact Psych/Mental Status: Normal Affect, Appropriate Microbiology Past 72 Hours 05/21/17 00:16 Urine Catheter - Catheter Streptococcus pneumoniae Antigen ( M - Final 05/21/17 00:16 Urine Catheter - Catheter Legionella Antigen - Final Laboratory Results 05/22/17 05:04: WBC 7.5, RBC 4.15 L, Hgb 11.2 L, Hct 36.2 L, MCV 87.2, MCH 27.0 , MCHC 30.9 L, RDW 16.1 H, RDW Differential 50.2 H, Plt Count 283, MPV 9.8, Immature Gran % (Auto) 1.200 H, Neut % (Auto) 46.7 L, Lymph % (Auto) 40.7, [place] % (Auto) 8.7, Eos % (Auto) 2.0, Baso % (Auto) 0.7, Absolute Neuts (auto) 3.5, Absolute Lymphs (auto) 3.04, Total Counted Not Reportable Current Medications Acetaminophen (Tylenol) 650 mg PO Q4H PRN PRN PRN Reason: FEVER Albuterol Sulfate (Ventolin Aerosols) 2.5 mg INHALATION Q6HWA.RT [facility] Last Admin: 05/22/17 06:42 Dose: 2.5 mg Benzonatate (Tessalon Perle) 200 mg PO TID GILA Budesonide (Pulmicort Aerosol) 0.5 mg INHALATION Q12H.RT [facility] Last Admin: 05/22/17 06:42 Dose: 0.5 mg Ergocalciferol (Vitamin D) 50,000 unit PO KEITA [facility] Last Admin: 05/21/17 10:34 Dose: 50,000 unit Fluticasone Propionate (Flonase Nasal [place]) 2 spray NASAL DAILY [facility] Last Admin: 05/21/17 10:33 Dose: 2 spray Guaifenesin (Mucinex) 1,200 mg PO BID [facility] Last Admin: 05/21/17 22:29 Dose: 1,200 mg Heparin Sodium (Porcine) (Heparin Na) 5,000 unit SC Q8 [facility] Last Admin: 05/22/17 05:15 Dose: 5,000 u Ceftriaxone Sodium (Rocephin) 1 gm in 50 mls @ 100 mls/hr IV Q24 [facility] Last Admin: 05/21/17 10:36 Dose: 100 mls/hr Sodium Chloride () 1,000 mls @ 100 mls/hr IV .Q10H [facility] Last Admin: 05/22/17 07:19 Dose: 100 mls/hr Azithromycin 500 mg/ Dextrose 255 mls @ 250 mls/hr IV Q24 [facility] Stop: 05/23/17 11:02 Last Admin: 05/21/17 09:15 Dose: 250 mls/hr Levothyroxine Sodium (Synthroid) 50 mcg PO DAILY@0600 [facility] Last Admin: 05/22/17 05:14 Dose: 50 mcg Lorazepam (Ativan) 2 mg PO BID [facility] Last Admin: 05/21/17 22:29 Dose: 2 mg Losartan Potassium (Cozaar) 50 mg PO DAILY [facility] Last Admin: 05/21/17 10:33 Dose: 50 mg Morphine Sulfate (Morphine) 1 - 2 mg IV Q4H PRN PRN PRN Reason: Moderate Pain (pain scale 4-5) Last Admin: 05/21/17 20:54 Dose: 2 mg Pantoprazole Sodium (Protonix) 40 mg PO BID [facility] Last Admin: 05/21/17 22:29 Dose: 40 mg Paroxetine HCl (Paxil) 60 mg PO DAILY [facility] Last Admin: 05/21/17 10:32 Dose: 60 mg Phenazopyridine HCl (Azo Standard) 190 mg PO BID PRN PRN PRN Reason: PAIN Pregabalin (Lyrica) 150 mg PO BID [facility] Last Admin: 05/21/17 22:29 Dose: 150 mg Sodium Chloride () 5 - 30 ml IV UD PRN PRN Reason: SALINE FLUSH Last Admin: 05/21/17 15:21 Dose: 10 ml Trazodone HCl (Desyrel) 100 mg PO QHS [facility] Last Admin: 05/21/17 22:28 Dose: 100 mg Assessment/Plan Active and Suspected Problems CAP (community acquired pneumonia) (Acute) This is a 62 years old female patient presented to the emergency room because of mechanical fall, complained of left lateral chest pain, had closed head injury and was treated as a case of possible or suspected community-acquired pneumonia. #1 mechanical fall/left chest and ribs contusion: Chest x-ray showed no acute rib fractures, revealed questionable left lower lobe infiltrate which could be also due to lung contusion. CT chest again showed no evidence of acute rib fractures, revealed groundglass opacity in the right upper lobe, left upper lobe and left lower lobe which again could be due to pneumonia which is less likely but possibly due to pulmonary contusion. She is on IV morphine as needed for pain. Patient reported improvement of her symptoms, vital signs are stable, afebrile, pulse ox is normal on room air. Plan: Continue same treatment , ambulate, incentive spirometer, pain control. #2 closed head injury: Secondary to mechanical fall, CT scan brain showed no acute findings. She denied any headache, focal weakness. CT scan cervical spine also revealed no acute fractures or dislocations. Plan for pain control. #3 suspected community-acquired pneumonia: At this time, I doubt pneumonia. She was started empirically on IV Rocephin and Zithromax. CT scan chest revealed groundglass opacities in the right and left upper lobes as well as left lower lobe. She reported mild cough, no sputum production. She is afebrile, she has mild leukocytosis. Blood cultures are negative for 24 hours. At this time, we will keep her on IV antibiotics empirically. Blood culture negative for 48 hours and patient has not spiked temperature, and safely discontinue IV antibiotics. #4 hypertension: Blood pressure stable, continue losartan. #5 hypothyroidism: Continue levothyroxine. #6 GERD: Continue PPI. #7 chronic back pain: Continue Lyrica and IV morphine as needed. #8 depression/anxiety: Continue Ativan, Paxil and trazodone. #9 DVT prophylaxis: Subcu Lovenox. Clinical Impression(s) from Imaging Studies Brain CT 05/20/17 16:06 IMPRESSION: Normal unenhanced CT scan of the brain. Electronically Signed: Linwood Stone MD at 16:50 EST , Service support , Cervical Spine CT 05/20/17 16:07 IMPRESSION: Mild degenerative changes, no demonstrated fracture or aggressive osseous lesion Electronically Signed: Linwood Stone MD at 16:59 EST , Service support , Ribs w/Chest X-Ray 05/20/17 16:25 IMPRESSION: RIBS: Demineralization of the osseous structures, no demonstrated acute displaced rib fracture, pleural thickening, or pneumothorax CHEST: Opacification the left lower lung field likely infiltrate but pulmonary contusion cannot be completely excluded. Electronically Signed: Linwood Stone MD at 16:56 EST , Service support , Chest CT 05/20/17 19:08 IMPRESSION: Patchy ground glass opacity in the right upper lobe, left upper lobe and left lower lobe. This may be due to infection, inflammation or edema. In the setting of trauma, pulmonary contusion is also in the differential diagnosis. No evidence of fracture or dislocation in the visualized thoracic osseous structures. Electronically Signed: Barrie Smith, at 20:02 EST Tel , Service support , Chest X-Ray 05/21/17 05:30 IMPRESSION: Improving left basilar aeration. Improving right midlung atelectasis. Electronically Signed: Troy Shea MD at 6:05 EST Tel , Service support , This note was generated with [employer] dictation software. Every effort was made to ensure accuracy, however computerized voice intercept technician mistakes may persist. Code Visit Inpatient E&M: 67105 Subs Hosp L3
[2017-05-22] MEDS: Benzonatate 100 MG Capsule 200 MG PO ×3 (10:46→21:39)
[2017-05-22] MEDS: LORazepam 1 MG Tablet 2 MG PO ×2 (10:47→21:38)
[2017-05-22] MEDS: Pregabalin 75 MG Capsule 150 MG PO ×2 (10:47→21:39)
[2017-05-22] MEDS: Losartan Potassium 50 MG Tablet PO (10:47)
[2017-05-22] MEDS: Pantoprazole Sodium 40 MG Tablet PO ×2 (10:47→21:39)
[2017-05-22] MEDS: Ceftriaxone 1 GM/50 ML BAG IV (10:48)
[2017-05-22] MEDS: guaiFENesin 1,200 MG Tablet 1200 MG PO ×2 (10:56→21:39)
[2017-05-22] MEDS: Fluticasone 0.05% 1 SPRAY NASAL.SRY 2 SPRAY NASAL (10:56)
[2017-05-22] MEDS: oxyCODONE 5 MG Tablet PO (18:18)
[2017-05-23] MEDS: oxyCODONE 5 MG Tablet PO ×3 (00:02→10:35)
[2017-05-23] MEDS: 0.9% NaCl Peripheral Flush Adult/Peds IV (00:02)
[2017-05-23 03:00] VITALS: BP 117/63; PULSE 65; RESP 16; TEMP 36.7; O2SAT 94
[2017-05-23] MEDS: 0.9% Normal Saline 1,000 ML 100 ML IV (03:22)
[2017-05-23] MEDS: Benzonatate 100 MG Capsule 200 MG PO (06:22)
[2017-05-23] MEDS: Levothyroxine 50 MCG Tablet PO (06:22)
[2017-05-23 07:26] VITALS: PULSE 70; RESP 16; O2SAT 94
[2017-05-23] MEDS: Albuterol 2.5 MG/3 ML VIAL.NEB. INHALATION (07:26)
[2017-05-23] MEDS: Budesonide Respules 0.5 MG/2 ML AMPUL.NEB. INHALATION (07:26)
[2017-05-23 09:00] VITALS: BP 149/76; PULSE 74; RESP 18; TEMP 36.6; O2SAT 93
[2017-05-23] MEDS: Ceftriaxone 1 GM/50 ML BAG IV (09:12)
[2017-05-23] MEDS: Pregabalin 75 MG Capsule 150 MG PO (09:14)
[2017-05-23] MEDS: LORazepam 1 MG Tablet 2 MG PO (09:14)
[2017-05-23] MEDS: Losartan Potassium 50 MG Tablet PO (09:15)
[2017-05-23] MEDS: Pantoprazole Sodium 40 MG Tablet PO (09:15)
[2017-05-23] MEDS: guaiFENesin 1,200 MG Tablet 1200 MG PO (09:15)
[2017-05-23] MEDS: Fluticasone 0.05% 1 SPRAY NASAL.SRY 2 SPRAY NASAL (09:16)
--- NOTE | 2017-05-23 09:50 | CASEMGMT ---
Addendum entered by Stacey Ledezma 05/23/17 12:08: MARLY HUERTA called [facility] to inquire on the progress of rollator and delivery. [facility] stated that there was a $55 upgrade charge and could take CC over the phone. MARLY HUERTA updated patient and she requested that patient and family will nut picker rollator at [facility] when patient is discharge. MARLY HUERTA called [facility] and updated with request for patient to nut picker rollator at [facility]. Original Note: MARLY HUERTA in to discuss DME needs with patient. Patient states that she would like a rollator for at home. MARLY HUERTA explained that insurance may not cover entire cost of rollator and patient voiced understanding. Patient stated that she had no preference for DME company and agreed with [facility]. Script for rollator obtained from Dr. Mcpherson and sent to [facility]. MARLY HUERTA called [facility] to confirm that they received script and requested rollator be delivered to hospital. MARLY HUERTA will continue to follow this patient and plan for a safe discharge.
--- NOTE | 2017-05-23 11:15 | PCM.DC ---
- Discharge Diagnoses Current Active Problems: Current Active and Chronic Problems CAP (community acquired pneumonia) (Acute) You will use the following diet at home:: Cardiac Discharge Activity: May not drive while taking narcotic pain medications. Allergies/Adverse Reactions: Allergies No Known Allergies Allergy (Verified 05/20/17 15:38) Medications to take at Discharge Paroxetine HCl [Paxil] 60 mg PO DAILY 01/29/13 Pregabalin [Lyrica] 150 mg PO BID 01/29/13 Trazodone HCl [Desyrel] 100 mg PO QHS 01/29/13 Hydrocodone/Acetaminophen [Vicodin 5-300 mg Tablet] 1 - 2 tablet PO BID 10/16/13 Esomeprazole Mag Trihydrate [Nexium] 40 mg PO QHS 05/16/14 Losartan Potassium [Cozaar] 50 mg PO DAILY 05/16/14 Levothyroxine [Synthroid] 50 mcg PO DAILY 10/03/14 Naproxen [Naprosyn] 500 mg PO BID #20 tablet 06/18/15 Lorazepam [Ativan] 2 mg PO BID 10/11/16 Mometasone Furoate [Nasonex] 2 spray NASAL QHS 10/11/16 Cholecalciferol (Vitamin D3) [Vitamin D3] 50,000 units PO KEITA 05/20/17 Pantoprazole Sodium [Protonix] 40 mg PO DAILY 05/20/17 Albuterol Inhaler [Ventolin Hfa] 1 - 2 puff INHALATION Q6H PRN PRN #1 inhaler 05/23/17 Benzonatate [Tessalon Perle] 200 mg PO TID capsule 05/23/17 Budesonide Inhaler 90 mcg [Pulmicort Flexhaler 90 mcg] 1 puff INHALATION BID #1 inhaler 05/23/17 Guaifenesin [Mucinex] 1,200 mg PO BID #14 tab 05/23/17 Levothyroxine [Synthroid] 50 mcg PO DAILY@0600 #30 tab 05/23/17 The following prescriptions were given: Albuterol Inhaler [Ventolin Hfa] 1 - 2 puff INHALATION Q6H PRN PRN #1 inhaler PRN Reason: Asthma Levothyroxine [Synthroid] 50 mcg PO DAILY@0600 #30 tab Budesonide Inhaler 90 mcg [Pulmicort Flexhaler 90 mcg] 1 puff INHALATION BID #1 inhaler Guaifenesin [Mucinex] 1,200 mg PO BID #14 tab Orders to be completed after discharge: Chest PA and Lateral [RAD] Time Frame: 06/20/17, Location: None Selected Primary Care Physician: Olivia Gates DO [Primary Care Provider] - Please follow up with your Primary Care Physician in: in 2 weeks Please Follow Up With: Az Figueroa MD When: in 4 weeks for outpatient PFT. Asthma
--- NOTE | 2017-05-23 11:18 | DS.PCM_ITS ---
Discharge Date and Diagnosis Date of Admission: 05/20/17 Date of Discharge: 05/23/17 - Primary Discharge Diagnosis Active and Suspected Problems #1 mechanical fall/left chest and ribs contusion and groundglass opacities in the right and left upper lobes as well as left upper lobe suggestive of pulmonary contusion #2 closed head injury: Secondary to mechanical fall, CT scan brain showed no acute findings. #3 Pneumonia ruled out: Patient had than 72 hours without fever, chills, tachypnea. Urinary antigens are negative. Blood culture negative for more than 48 hours. Possible chronic stable asthma/reversible airway disease: - Secondary Discharge Diagnosis Chronic Problems Chronic back pain (Chronic) Hospital Course and Treatment Operations: None Summary of Care Provided: [] This is a 62 years old female patient presented to the emergency room because of mechanical fall, complained of left lateral chest pain, had closed head injury and was initially admitted for suspicion of community cover pneumonia but most probably pulmonary contusion in view of CT scan chest pictures. Seen and examined today. Acute events last night. No fever or chills. General: Alert, Oriented x3, Cooperative HEENT: Atraumatic, PERRLA, EOMI, Normocephalic Neck: Supple, No JVD, Negative Carotid Bruits Lungs: No rhonchi, No wheeze, No rales, Diminished, - - Reproducible tenderness present over left chest wall anteriorly inframammary. Cardiovascular: Regular rate, Regular Rhythm, Normal S2, No murmurs Abdomen: Bowel Sounds Present, Soft, Non Tender Extremities: No edema, Capillary Refill Less than 3 Seconds Skin: No rashes, No breakdown Musculoskeletal: No Tenderness to Palpation of Joints or Extremities Neurological: Cranial nerves II-XII grossly intact Psych/Mental Status: Normal Affect, Appropriate #1 mechanical fall/left chest and ribs contusion: Chest x-ray showed no acute rib fractures, revealed questionable left lower lobe infiltrate which could be also due to lung contusion. CT chest again showed no evidence of acute rib fractures, revealed groundglass opacity in the right upper lobe, left upper lobe and left lower lobe which is mainly due to pulmonary contusion. She is on IV morphine as needed for pain. Patient reported improvement of her symptoms, vital signs are stable, afebrile, pulse ox is normal on room air. Plan: Continue same treatment, ambulate, incentive spirometer, pain control. Patient is on Vicodin at home. Follow-up with PCP. #2 closed head injury: Secondary to mechanical fall, CT scan brain showed no acute findings. She denied any headache, focal weakness. CT scan cervical spine also revealed no acute fractures or dislocations. Plan for pain control. #3 Pneumonia ruled out: Patient had than 72 hours without fever, chills, tachypnea. Urinary antigens are negative. Blood culture negative for more than 48 hours. At this time, I do not think so patient has pneumonia but her CT chest picture of groundglass opacities in the right and left upper lobes as well as left upper lobe mainly represent pulmonary contusion. Initially she was started empirically on IV Rocephin and Zithromax but it is discontinued. Patient does not require any further antibiotic at the time of discharge. Repeat chest x-ray after 4 weeks ordered. Possible chronic stable asthma/reversible airway disease: Patient gives history that in the past she had exposure to some floor cleansing is not and she started shortness of breath at that time and has wheezing. Patient was advised PFT in 4 weeks and follow-up with environmental management specialist Dr. Figueroa. Prescription for albuterol and Pulmicort inhaler pharmacy. #4 hypertension: Blood pressure stable, continue losartan. #5 hypothyroidism: Continue levothyroxine. #6 GERD: Continue PPI. #7 chronic back pain: Continue Lyrica and IV morphine as needed. #8 depression/anxiety: Continue Ativan, Paxil and trazodone. #9 DVT prophylaxis: Subcu Lovenox. Discharge medication reconciliation done. Discharge follow-up instructions, repeat chest x-ray and discharge plan discussed with the patient. About more than 30 minutes spent on the discharge process. Discharge Activity: May not drive while taking narcotic pain medications. Home Medications: Medications to take at Discharge Paroxetine HCl [Paxil] 60 mg PO DAILY 01/29/13 Pregabalin [Lyrica] 150 mg PO BID 01/29/13 Trazodone HCl [Desyrel] 100 mg PO QHS 01/29/13 Hydrocodone/Acetaminophen [Vicodin 5-300 mg Tablet] 1 - 2 tablet PO BID Esomeprazole Mag Trihydrate [Nexium] 40 mg PO QHS 05/16/14 Losartan Potassium [Cozaar] 50 mg PO DAILY 05/16/14 Levothyroxine [Synthroid] 50 mcg PO DAILY 10/03/14 Naproxen [Naprosyn] 500 mg PO BID #20 tablet 06/18/15 Lorazepam [Ativan] 2 mg PO BID 10/11/16 Mometasone Furoate [Nasonex] 2 spray NASAL QHS 10/11/16 Cholecalciferol (Vitamin D3) [Vitamin D3] 50,000 units PO KEITA 05/20/17 Pantoprazole Sodium [Protonix] 40 mg PO DAILY 05/20/17 Albuterol Inhaler [Ventolin Hfa] 1 - 2 puff INHALATION Q6H PRN PRN #1 inhaler Benzonatate [Tessalon Perle] 200 mg PO TID capsule 05/23/17 Budesonide Inhaler 90 mcg [Pulmicort Flexhaler 90 mcg] 1 puff INHALATION BID #1 inhaler 05/23/17 Guaifenesin [Mucinex] 1,200 mg PO BID #14 tab 05/23/17 Levothyroxine [Synthroid] 50 mcg PO DAILY@0600 #30 tab 05/23/17 Following Prescrptions Were Given to Patient: Albuterol Inhaler [Ventolin Hfa] 1 - 2 puff INHALATION Q6H PRN PRN #1 inhaler PRN Reason: Asthma Levothyroxine [Synthroid] 50 mcg PO DAILY@0600 #30 tab Budesonide Inhaler 90 mcg [Pulmicort Flexhaler 90 mcg] 1 puff INHALATION BID #1 inhaler Guaifenesin [Mucinex] 1,200 mg PO BID #14 tab Other Amb Orders: Chest PA and Lateral [RAD] Time Frame: 06/20/17, Location: None Selected Primary Care Physician: Olivia Gates DO [Primary Care Provider] - Please follow up with your Primary Care Physician in: in 2 weeks Please Follow Up With: Az Figueroa MD When: in 4 weeks for outpatient PFT. Asthma Meaningful Use Info Meaningful Use Diagnoses (Choose all that apply): None applicable Code Visit Inpatient E&M: 86799 Disch Hosp
== END 2017-05-23 12:59 | disposition home or self-care (01) | DRG 206 ==
LOC: ED 21:46 → MS3 22:01
PROVIDERS: Hospitalist; Admitting Provider Internal Medicine; Emergency Provider Emergency Medicine; Family Provider Family Medicine; PCP Family Medicine; Visit Provider Internal Medicine
DX: S27.322A Contusion of lung, bilateral, initial encounter (principal); S09.90XA Unspecified injury of head, initial encounter; W00.9XXA Unspecified fall due to ice and snow, initial encounter; I10 Essential (primary) hypertension; T14.8XXA Other injury of unspecified body region, initial encounter; S20.212A Contusion of left front wall of thorax, initial encounter; M54.9 Dorsalgia, unspecified; G89.29 Other chronic pain; E03.9 Hypothyroidism, unspecified; F41.9 Anxiety disorder, unspecified; F32.9 Major depressive disorder, single episode, unspecified; K21.9 Gastro-esophageal reflux disease without esophagitis; Z79.899 Other long term (current) drug therapy
CPT/HCPCS: 36415; 70450; 71046; 71101; 71250; 72125; 80048; 81002; 85025; 87040; 87449; 87804; 94640; 97161; 97165; 99284; J7030; A4216

== ENCOUNTER 2017-05-25 18:46 | Inpatient (IN) | payer MEDICARE, SELFPAY ==
[2017-05-25 18:48] VITALS: BP 131/64; PULSE 85; RESP 16; TEMP 36.6; O2SAT 94; BMI 39.0
[2017-05-25 21:01] VITALS: BP 164/130; PULSE 80; RESP 18; O2SAT 97
--- NOTE | 2017-05-25 21:12 | CT_ITS ---
STUDY: CTA CHEST REASON FOR EXAM: Female, 62 years old. Patient fell. Pain in the left breast. RADIATION DOSAGE (If Supplied By Facility): CTDIvol = ( 16.7 ) mGy, DLP = ( 622.80 ) mGycm TECHNIQUE: The examination was performed with the intravenous administration of 100ML ml of Isovue 370 contrast material. Post-processing of the angiographic images was performed, with multiplanar reformation and 3D reconstruction. Individualized dose optimization techniques were used for this CT. COMPARISON: None. FINDINGS: : TRACHEA, THYROID, ESOPHAGUS: No tracheomalacia,stricture or wall thickening. Thyroid and esophagus are normal CARDIOVASCULAR SYSTEM:The thoracic aorta is normal with no aneurysm, dissection or developmental anomalies. The pulmonary trunk and the left and right pulmonary arteries and their lobar and segmental branches do not show any abnormal and persistent filling defects in them. There is therefore no evidence of pulmonary embolism. The heart is normal. There are no venous anomalies CHRISTOPHER AND LYMPH NODES: No hilar masses and no mediastinal, hilar, axillary or supraclavicular adenopathy LUNGS, LOW-ATTENUATION: No traction bronchiectasis, honeycombing,emphysema, lung cysts or cavitations. No evidence of any lacerations. LUNGS, HIGH ATTENUATION: Groundglass opacities in the left lower lobe and right upper lobe LUNGS, MOSAIC/CRAZY PAVING: Not evident PLEURA AND CHEST WALL: No plural effusions, pneumothoraces,rib fractures or any osteolytic/osteoblastic changes . The soft tissue chest wall including the breasts are normal with no evidence of contusion UPPER ABDOMEN: Unremarkable . CT/CTA Chest W/WO Contrast IMPRESSION: Normal CTA chest examination, without a demonstrated pulmonary embolism or arterial dissection. Groundglass opacities in the left lower lobe and right upper lobe. With the given history of fall these may represent pulmonary contusions No rib fractures, pneumothoraces or any soft tissue contusions in the anterior chest wall Electronically Signed: Adilson Ryder, at 23:38 EST Tel , Service support ,
--- NOTE | 2017-05-25 21:12 | EKG12_ITS ---
Test Reason : CP Blood Pressure : / mmHG Vent. Rate : 078 BPM Atrial Rate : 078 BPM P-R Int : 144 ms QRS Dur : 082 ms QT Int : 416 ms P-R-T Axes : 024 026 046 degrees QTc Int : 474 ms Sinus rhythm with occasional Premature ventricular complexes Otherwise normal ECG Confirmed by ELEUTERIO OZUNA, RASHARD ([id number]), index editor ROLO RAJPUT ([id number] on 05/29/2017 1:10:24 PM Referred By: Petey Mcpherson Confirmed By:RASHARD MCCLELLAN MD
[2017-05-25 21:14] VITALS: O2SAT 96
--- NOTE | 2017-05-25 21:14 | ED.VISSUMM ---
- ER Visit Summary Date of Service: 05/25/17 Chief Complaint: Left chest pain History of Present Illness: The patient is a 62 F presenting with left chest pain. She states she fell approximately 1 week ago. She was admitted at that time for a pulmonary contusion. She states she was admitted for 4 days. She continues to have significant pain under her left breast. She states she was treated for pneumonia while in the hospital but was not sent home with antibiotics. She states the pain has worsened. She complains of persistent and worsening pain as well as cough. Physical Examination: Blood pressure 164/130. Patient is afebrile. Alert no acute distress. HEENT exam is unremarkable. Neck is supple. Lungs are clear and equal bilaterally. Tenderness under left breast Heart is regular rate and rhythm. Abdomen is soft nontender nondistended. Extremities are unremarkable. Skin is warm and dry. No focal neurologic deficit. Remainder of exam is unremarkable. Emergency Department Course and Treatment: EKG is sinus rhythm rate of 78 with no acute ischemic changes. She was given morphine and zofran IV and continues to have pain. CBC shows white count up to 13.0. Chemistries unremarkable. Troponin is negative. CTA chest shows no PE, groundglass opacities in the left lower lobe and right upper lobe. With the given history of fall these may represent pulmonary contusions. Attempted to ambulate the patient. Her pulse ox went from 94% on room air while sitting to 88% with ambulation. She does not have home O2 available. She continues to complain of pain and shortness of breath. Discussed with the hospitalist for observation. Disposition: Observation Impression: Pulmonary contusion, hypoxia This note was generated with [employer] dictation software. It may contain incorrect words, spelling, and punctuation that were not noted in review of the chart prior to signing ED Disposition - Plan for ED Patient: Chief Complaint: Chest Other Referrals: Olivia Gates DO [Primary Care Provider] -
[2017-05-25] MEDS: Aspirin 81 MG TAB.CHEW 324 MG PO (21:19)
--- NOTE | 2017-05-25 21:20 | RAD_ITS ---
STUDY: X-RAY CHEST REASON FOR EXAM: Female, 62 years old. Chest pain TECHNIQUE: Single AP portable view of the chest. COMPARISON: Prior study of May 21, 2017 FINDINGS: metal tube cutter leads are seen. There is a left midlung field infiltrate appearing similar to the previous study allowing for differences in radiographic technique. There is no demonstrated pleural abnormality. Normal size heart. Normal mediastinum and dave. Normal visualized pulmonary arteries. There are calcified plaques of the aortic arch. Normal visualized thoracic spine. Normal visualized ribs, clavicles, and shoulders. There is no demonstrated abnormality of the visualized soft tissue structures of the upper abdomen. RAD/Chest 1 View (Portable) IMPRESSION: Left midlung field infiltrate appears similar to the prior study, allowing for differences in radiographic technique. Calcified plaques of the aortic arch. Minimal right mid lung field fibrosis or atelectasis, stable in the interval. Electronically Signed: Lázaro Gutierrez MD at 22:14 EST , Service support ,
[2017-05-25] MEDS: Ondansetron 4 MG/2 ML Vial IV (21:26)
[2017-05-25 21:46] LABS: Absolute Lymphocyte Count 4.29 X10^3/ul (0.83-4.51); Absolute Neutrophil Count 7.5 X10^3/uL (2.0-7.7); Basophil# 0.04 X10^3/uL; Basophil% 0.3 % (0-1); Eosinophil# 0.09 X10^3/uL; Eosinophils% 0.7 % (0-5); Hematocrit 40.9 % (37-47); Hemoglobin 13.2 g/dl (12.0-15.0); Lymphocyte # 4.29 X10^3/ul (4.0); Mean Corp Hgb Conc 32.3 g/gl (32-36); Mean Corpuscular Hgb 27.5 pg (27.0-32.0); Mean Corpuscular Volume 85.2 fL (81-99); Mean Platelet Vol. 9.5 fl (6.2-12.0); Monocyte# 1.05 X10^3/uL; Monocyte% 8.1 % (0-10); Neutrophil # 7.47 X10^3/uL (2.7-7.7); Neutrophil % 57.4 % (47-70); Platelet Count 331 K/mm3 (150-450); RBC Distribution Width CV 15.8 % (11.6-14.6); RBC Distribution Width SD 48.8 fl (35.1-43.9)
[2017-05-25 21:50] LABS: POSITIVE COUNT NO; POSITIVE DIFFERENTIAL NO; POSITIVE MORPHOLOGY NO
[2017-05-25 21:58] LABS: Anion Gap 10 (5-15); BUN 17 mg/dL (7-18); Chloride 107 mmol/L (98-107); Creatinine, Serum 0.85 mg/dL (0.55-1.02); EST Glomerular Filtration Rate 72 mL/min (>60); Est Glom Filt Rate - Afr Amer 87 mL/min (>60); Estimated Creatinine Clearance 53.58 ml/min; Glucose 99 mg/dL (74-106); Potassium 3.8 mmol/L (3.5-5.1); Sodium Level 141 mmol/L (136-145)
[2017-05-25 23:00] VITALS: BP 139/62; PULSE 77; RESP 16; O2SAT 94
[2017-05-26] VITALS (18 sets, daily range): BP systolic 114–130; BP diastolic 46–78; PULSE 66–85; RESP 16–20; TEMP 36.4–36.7; O2SAT 90–98; BMI 39.3
--- NOTE | 2017-05-26 01:23 | ED.RN ---
DR NAVA AWARE THAT THE PT IS ASKING FOR SOMETHING FOR BREAST PAIN.
--- NOTE | 2017-05-26 01:44 | PCM.HP.STD ---
Problem List (1) GERD (gastroesophageal reflux disease) Status: Chronic (2) Depression Status: Chronic (3) Anxiety Status: Chronic (4) Hypothyroidism Status: Chronic (5) HTN (hypertension) Status: Chronic (6) Chronic back pain Status: Chronic History of Present Illness Date of Admission: 05/26/17 Chief Complaint: Left chest pain. The patient is a 62 year old F with past medical history as mentioned above presented to the emergency room because of left chest pain. This patient was admitted on May 20, 2017 4 mechanical fall that was complicated by left chest and ribs contusion as well as closed head injury and questionable community acquired pneumonia and she was discharged from the hospital on May 23, 2017. She returned back to the emergency room this morning with worsening left lateral chest pain, sharp pain, 8 out of 10 in severity, not radiating, aggravated by taking a deep breath, coughing and moving associated with shortness of breath as well as dry cough and without relieving factors. She denies fever or chills. Denied sputum production. Denied dizziness or lightheadedness. Denied abdominal pain, nausea or vomiting. She lives with her grandson who is not of great help to her. During this recent admission, chest x-ray showed no acute rib fractures but showed questionable left lower lobe infiltrate and she was treated empirically with IV Rocephin and Zithromax. In the emergency room, she was afebrile, blood pressure and heart rate were stable, and reportedly, her pulse ox went down to 88% on ambulation but was up to 97% on room air at rest. Her routine blood work is remarkable for mild leukocytosis, otherwise normal. EKG revealed normal sinus rhythm with occasional PVCs, otherwise no acute ischemic changes. Troponin is negative. Chest x-ray showed probable mid left lung infiltrate which could be due to atelectasis versus contusion, pneumonia is less likely. CTA chest showed no evidence of PE or dissection, showed groundglass opacities in the left lower and right upper lobe which looked similar to the CT chest done on May 20, 2017. She is being admitted for intractable left lateral chest pain due to recent pulmonary contusion as well as hypoxia. Past Medical History Past Medical History (Chronic Problems): Chronic Problems GERD (gastroesophageal reflux disease) (Chronic) Depression (Chronic) Anxiety (Chronic) Hypothyroidism (Chronic) HTN (hypertension) (Chronic) Chronic back pain (Chronic) Allergies No Known Allergies Allergy (Verified 05/25/17 18:48) Home Medications: Ambulatory Orders Medication Instructions Recorded Paroxetine HCl [Paxil] 60 mg PO DAILY 01/29/13 Pregabalin [Lyrica] 150 mg PO BID 01/29/13 Trazodone HCl [Desyrel] 100 mg PO QHS 01/29/13 Hydrocodone/Acetaminophen [Vicodin 1 - 2 tablet PO BID 10/16/13 5-300 mg Tablet] Esomeprazole Mag Trihydrate 40 mg PO QHS 05/16/14 [Nexium] Losartan Potassium [Cozaar] 50 mg PO DAILY 05/16/14 Levothyroxine [Synthroid] 50 mcg PO DAILY 10/03/14 Naproxen [Naprosyn] 500 mg PO BID #20 tablet 06/18/15 Lorazepam [Ativan] 2 mg PO BID 10/11/16 Mometasone Furoate [Nasonex] 2 spray NASAL QHS 10/11/16 Cholecalciferol (Vitamin D3) 50,000 units PO KEITA 05/20/17 [Vitamin D3] Pantoprazole Sodium [Protonix] 40 mg PO DAILY 05/20/17 Albuterol Inhaler [Ventolin Hfa] 1 - 2 puff INHALATION Q6H PRN PRN 05/23/17 #1 inhaler Benzonatate [Tessalon Perle] 200 mg PO TID capsule 05/23/17 Budesonide Inhaler 90 mcg 1 puff INHALATION BID #1 inhaler 05/23/17 [Pulmicort Flexhaler 90 mcg] Guaifenesin [Mucinex] 1,200 mg PO BID #14 tab 05/23/17 Sucralfate 1 gm PO DAILY 05/25/17 Surgical History: cholecystectomy, herniorrhaphy, hysterectomy, - Psychiatric History: Anxiety, Depression 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 Denies: Chest Pressure, Chest Tightness, Orthopnea, Paroxysmal Noc. Dyspnea, Syncope Respiratory: Reports: Cough, Pleuritic Pain, Shortness of Breath. Denies: Hemoptysis, Sputum production, Wheezing Gastrointestinal: Denies: Abdominal Pain, Constipation, Diarrhea, Nausea, Vomiting Genitourinary: Denies: Dysuria, Frequency, Hematuria Musculoskeletal: Denies: Arm Pain, Back Pain, Foot Pain Skin: Denies: Dryness, Rash Neurological: Denies: Balance problems, Double vision, Change in Speech, Slurred speech, Confusion, Focal weakness, Headaches, Incoordination, Numbness Psychiatric: Reports: Anxiety, Depression Endocrine: Denies: Change in Body Habitus, Polydipsia VTE Information - Inpt Only VTE Present on Admission: No VTE Mechan Device Prophylaxis: None VTE Pharm Prophylaxis ordered?: Yes - Physical Exam General: Alert, Oriented x3, Cooperative, - - He is in moderate pain. HEENT: Atraumatic, PERRLA, EOMI Oral: Moist Mucosa, No Gingival or Mucosal Lesions/ Ulcerations Neck: Supple, No JVD, Negative Carotid Bruits, Trachea Midline, Thyroid Normal Size and Texture Lungs: No rhonchi, No wheeze, No rales, Diminished, - - Decreased breath sounds bilaterally, more at the bases. Cardiovascular: Regular rate, Regular Rhythm, Normal S1, Normal S2, No murmurs, PMI Normal Abdomen: Bowel Sounds Present, Soft, Non Tender, Non-Distended, No Hepato-splenomegaly, Obese Extremities: No clubbing, No cyanosis, No edema Skin: No rashes, No breakdown Lymphatic: No Cervical, Supraclavicular, or Inguinal Adenopathy Neurological: Cranial nerves II-XII grossly intact, Motor Exam 5/5 strength throughout Psych/Mental Status: Normal Affect, Appropriate, Alert and oriented to time, place, person, mood and affect Vital Signs Temp Pulse Resp BP Pulse Ox 98.0 F 70 20 H 117/55 L 92 05/26/17 00:52 05/26/17 01:16 05/26/17 01:16 05/26/17 01:16 05/26/17 01:16 Oxygen Delivery Method Room Air Weight: 213 lb 10.047 oz Body Mass Index (BMI) 39.0 Laboratory Tests Past 24 Hrs 05/25/17 05/25/17 21:25 21:25 WBC 13.0 H RBC 4.80 Hgb 13.2 Hct 40.9 MCV 85.2 MCH 27.5 MCHC 32.3 RDW 15.8 H RDW Differential 48.8 H Plt Count 331 MPV 9.5 Immature Gran % (Auto) 0.500 Neut % (Auto) 57.4 Lymph % (Auto) 33.0 Richardson % (Auto) 8.1 Eos % (Auto) 0.7 Baso % (Auto) 0.3 Absolute Neuts (auto) 7.5 Absolute Lymphs (auto) 4.29 Total Counted Not Reportable Sodium 141 Potassium 3.8 Chloride 107 Carbon Dioxide 24.0 Anion Gap 10 BUN 17 Creatinine 0.85 Estim Creat Clear Calc 53.58 Est GFR (MDRD) Af Amer 87 Est GFR (MDRD) Non-Af 72 BUN/Creatinine Ratio 20.0 Glucose 99 Calcium 9.0 Troponin I < 0.02 Clinical Impression(s) from Imaging Studies Chest CTA 05/25/17 21:12 IMPRESSION: Normal CTA chest examination, without a demonstrated pulmonary embolism or arterial dissection. Groundglass opacities in the left lower lobe and right upper lobe. With the given history of fall these may represent pulmonary contusions No rib fractures, pneumothoraces or any soft tissue contusions in the anterior chest wall Electronically Signed: Adilson Ryder at 23:38 EST Tel , Service support , Chest X-Ray 05/25/17 21:20 IMPRESSION: Left midlung field infiltrate appears similar to the prior study, allowing for differences in radiographic technique. Calcified plaques of the aortic arch. Minimal right mid lung field fibrosis or atelectasis, stable in the interval. Electronically Signed: Lázaro Gutierrez MD at 22:14 EST , Service support , Assessment/Plan This is a 62 years old female patient presented to the emergency room because of left lateral chest pain in context of recent admission for mechanical fall with left chest and ribs confusion, closed head injury and questionable community-acquired pneumonia and she is being admitted for intractable left lateral chest pain due to pulmonary contusion and hypoxia. #1 intractable left lateral chest pain: Secondary to recent mechanical fall with pulmonary confusion. Chest x-ray and CTA chest reviewed as above. Her vital signs are stable, pulse ox is normal on room air and reportedly, pulse ox came down to 88% on ambulation. EKG reviewed, revealed normal sinus rhythm with occasional PVCs. Plan: Admit to [facility] floor, cardiac monitoring, IV morphine as needed for pain, OxyIR as needed for pain, Lidoderm patch daily, IV fluids, IV antiemetics, laxatives, incentive spirometer, PT OT evaluation and treatment. #2 hypoxia: This is secondary to above in addition to recent history of questionable pneumonia. Pulse ox has been normal on room air but came down to 88% on ambulation. Plan for pain control, incentive spirometer, bronchodilators. #3 recent history of questionable community-acquired pneumonia: She was treated empirically with IV Rocephin and Zithromax during the recent admission. She reported cough without sputum production, denies fever. She does have mild leukocytosis. No clear evidence of acute infiltrate on chest x-ray or CTA chest. At this time, active pneumonia is unlikely. Plan for pain control, repeat CBC tomorrow morning. #4 recent history of closed head injury: Secondary to recent fall, stable, no acute issues. #5 hypertension: Blood pressure stable, continue losartan. #6 hypothyroidism: Continue levothyroxine. #7 GERD: Continue Carafate and Protonix. #8 chronic back pain: Continue Lyrica, OxyIR as needed for pain, IV morphine as needed for pain. #9 depression/anxiety: Continue Ativan, Paxil and trazodone. #10 DVT prophylaxis: Subcu Lovenox. This note was generated with [employer] dictation software. It may contain incorrect words, spelling, and punctuation that were not noted in checking the note before signing. Code Visit Inpatient E&M: 55599 Init Hosp L3
[2017-05-26] MEDS: Pantoprazole Sodium 40 MG Tablet PO ×2 (03:53→21:03)
[2017-05-26] MEDS: 0.9% NaCl Peripheral Flush Adult/Peds IV ×2 (03:54→15:52)
[2017-05-26] MEDS: Levothyroxine 50 MCG Tablet PO (06:12)
[2017-05-26] MEDS: oxyCODONE 5 MG Tablet PO ×2 (06:12→13:50)
[2017-05-26] MEDS: Budesonide Respules 0.5 MG/2 ML AMPUL.NEB. INHALATION (06:47)
[2017-05-26] MEDS: Ipratropium/Albuterol Sulfate 3 ML AMPUL.NEB INHALATION ×3 (06:47→19:03)
--- NOTE | 2017-05-26 08:43 | ECHOD_ITS ---
Reason For Study: CHEST PAIN, SOB Procedure This was a 2D Doppler, Color Flow transthoracic echocardiogram. The exam was of adequate technical quality. Exam performed portable in patient room. Left Ventricle Normal LV size. Left ventricular systolic function is normal. The estimated ejection fraction is 70 %. No evidence for diastolic dysfunction. No regional wall motion abnormalities noted. Right Ventricle Normal RV size. Normal systolic function. Atria The left atrium is mildly enlarged. Normal right atrium. No doppler evidence for ASD. Mitral Valve There is no mitral annular calcification. Normal mitral valve. Trivial mitral valve insufficiency. Tricuspid Valve Normal tricuspid valve. Mild tricuspid valve insufficiency. Right ventricular systolic pressure estimated to be 30 mmHg. Aortic Valve Trisinus/trileaflet aortic valve. Normal aortic valve. Pulmonic Valve The pulmonic valve is not well visualized. Great Vessels Normal sized aortic root. Pericardium/Pleural No pericardial effusion. MMode/2D Measurements & Calculations LVIDd: 4.0 cm IVSd: 1.0 cm Ao root diam: 3.2 cm LVIDs: 2.6 cm LVPWd: 1.1 cm LA dimension: 4.3 cm RVDd: 3.9 cm FS: 34.2 % LAV(MOD-bp): 57.1 ml EDV(MOD-sp4): 103.8 ml EDV(MOD-sp2): 75.1 ml LAV(MOD-bp) Indexed: 29.0 ml/m2 ESV(MOD-sp4): 25.2 ml EF(MOD-sp2): 80.5 % LAV(MOD-sp2): 45.7 ml EF(MOD-sp4): 75.7 % LAV(MOD-sp4): 68.9 ml SV(MOD-sp4): 78.6 ml SV(MOD-sp2): 60.4 ml LA A4 area: 21.6 cm2 RA A4 area: 20.2 cm2 Doppler Measurements & Calculations MV E max lesly: 86.9 cm/sec Ao V2 max: 160.0 cm/sec LV V1 max: 115.1 cm/sec MV A max lesly: 80.8 cm/sec Ao max P.2 mmHg LV V1 max P.3 mmHg MV E/A: 1.1 TR max lesly: 256.9 cm/sec TR max P.9 mmHg Interpretation Summary Left ventricular systolic function is normal. The estimated ejection fraction is 70 %. The left atrium is mildly enlarged. Trivial mitral valve insufficiency. Mild tricuspid valve insufficiency. Right ventricular systolic pressure estimated to be 30 mmHg. No evidence for diastolic dysfunction. Ordering Physician: Petey Mcpherson Referring Physician: CAMMY ZIMMER Performed By: Natasha Ortiz, MARIKA, RVT
[2017-05-26] MEDS: Sucralfate 1 GM Tablet PO (10:08)
[2017-05-26] MEDS: Enoxaparin 30 MG/0.3 ML Syringe SC (10:09)
[2017-05-26] MEDS: Lidocaine 5% Patch 1 PATCH TOPICAL (10:09)
[2017-05-26] MEDS: Losartan Potassium 50 MG Tablet PO (10:09)
[2017-05-26] MEDS: Senna/Docusate Sodium 1 Tablet PO ×2 (10:10→21:03)
[2017-05-26] MEDS: Pregabalin 75 MG Capsule 150 MG PO ×2 (10:14→21:03)
[2017-05-26] MEDS: Acetaminophen 325 MG Tablet 650 MG PO (10:14)
--- NOTE | 2017-05-26 10:25 | PN_ITS ---
<Sabi Florez - Last Filed: 05/26/17 10:32> Subjective: Patient seen and examined. Resting comfortably in bed at this time. Complains of left-sided rib pain with deep breaths, cough. She complains of dry cough. She states she has mild shortness of breath with exertion. Denies fever, chills. Denies chest pain. - Physical Exam General: Alert, Oriented x3, Cooperative, No apparent distress HEENT: Atraumatic, PERRLA, EOMI, Normocephalic Neck: Supple, No JVD, Negative Carotid Bruits Lungs: Clear to auscultation, Diminished Cardiovascular: Regular rate, Regular Rhythm, Normal S1, Normal S2, No murmurs Abdomen: Bowel Sounds Present, Soft, Non Tender, Non-Distended, Obese Extremities: No clubbing, No cyanosis, No edema, Capillary Refill Less than 3 Seconds Skin: No rashes, No breakdown Musculoskeletal: No Tenderness to Palpation of Joints or Extremities Neurological: Cranial nerves II-XII grossly intact, Neuro grossly intact Psych/Mental Status: Normal Affect, Appropriate Vital Signs Temp Pulse Resp BP Pulse Ox 97.5 F L 66 18 121/46 H 97 05/26/17 10:04 05/26/17 10:04 05/26/17 10:04 05/26/17 10:04 05/26/17 10:04 Oxygen Flow Rate 2 Oxygen Delivery Method Nasal Cannula Weight: 97.5 kg Body Mass Index (BMI) 39.3 Intake and Output for Last 24 Hours 05/24/17 05/25/17 05/26/17 23:59 23:59 23:59 Intake Total 300 / 300 Balance 300 / 300 Assessment/Plan Patient is a 62-year-old female admitted 05/26/17 due to left-sided chest pain. She was recently admitted 05/20/17 due to mechanical fall which resulted in left chest and rib contusions and closed head injury. She also had questionable pneumonia at that time. She returned to the emergency room today with worsening left-sided chest pain. She has a past medical history of hypertension , hypothyroidism, GERD, chronic back pain, depression, anxiety. 1. Intractable left sided chest/rib pain-secondary to recent mechanical fall with pulmonary contusion. Chest CTA without evidence of pulmonary embolism or arterial dissection. Groundglass opacities in the left lower lobe and right upper lobe. No rib fractures, pneumothoraces, or soft tissue contusions. Continue Lidoderm patch, OxyIR and morphine as needed for pain. Begin prednisone 40 mg daily for 5 days. Echocardiogram pending. EKG without ST T changes. PT/OT. 2. Acute hypoxia-secondary to #1. Continue supplemental oxygen to maintain O2 at or above 90%. Continue pain control, incentive spirometer and albuterol DuoNeb aerosols. 3. Suspected community-acquired pneumonia-pneumonia was suspected during recent admission and patient was treated empirically with IV Rocephin and Zithromax. Patient has continued cough which is nonproductive. Mild leukocytosis. Afebrile. Pulmonary medicine recommending treating empirically with IV Levaquin 500 mg for 7 days given groundglass opacities noted in the left lower lobe and right upper lobe. 4. Hypertension-stable, continue losartan. 5. Hypothyroidism-continue Synthroid. 6. GERD- continue PPI. 7. Chronic back pain-continue lyrica. Oxyir and morphine PRN for pain. 8. Depression/anxiety- continue home regimen including ativan, paxil, trazodone. DVT prophylaxis- Lovenox This patient was seen by CLYDE Salgado under the supervision of Dr. Mcpherson. <Petey Mcpherson - Last Filed: 05/26/17 17:21> Subjective: Seen and examined. Patient complaint of left-sided inframammary anterior chest pain with deep breathing and cough. Her cough is still dry. She complained of chills but no fever along with shortness of breath on exertion as mentioned above. - Physical Exam General: Alert, Oriented x3, Cooperative HEENT: Atraumatic, PERRLA, EOMI, Normocephalic Neck: Supple, No JVD, Negative Carotid Bruits Lungs: Clear to auscultation, No rhonchi, No wheeze, Diminished Cardiovascular: Regular rate, No murmurs, - - 4 beats of pulseless bigeminy on the monitor. Abdomen: Bowel Sounds Present, Soft, Non Tender Extremities: No edema, Capillary Refill Less than 3 Seconds Skin: No rashes, No breakdown Musculoskeletal: No Tenderness to Palpation of Joints or Extremities Neurological: Cranial nerves II-XII grossly intact Psych/Mental Status: Normal Affect, Appropriate Vital Signs Temp Pulse Resp BP Pulse Ox 97.8 F 85 16 124/62 H 92 05/26/17 15:53 05/26/17 16:17 05/26/17 15:53 05/26/17 15:53 05/26/17 15:53 Oxygen Flow Rate 2 Oxygen Delivery Method Nasal Cannula Weight: 214 lb 15.211 oz Body Mass Index (BMI) 39.3 Intake and Output for Last 24 Hours 05/24/17 05/25/17 05/26/17 23:59 23:59 23:59 Intake Total 850 / 850 Balance 850 / 850 Laboratory Tests Past 24 Hrs 05/26/17 16:32 Troponin I Pending Assessment/Plan This patient was seen in conjunction with WORK STUDY STUDENTSabi. I have independently interviewed and examined the patient and reviewed pertinent history, examination findings, laboratory and plan of management. I have reviewed the note and agree with the documented findings with the few additional points. In brief, patient is admitted for left-sided inframammary pain with CT findings of groundglass opacities in left lower lobe and right lower lobe with no change from the previous CT chest of previous admission. The patient had 3 days of IV ceftriaxone and Zithromax during previous admission. This was discussed with the body and frame technician Dr. Alcantar and he reviewed the both CT scans chest and suggested Levaquin 500 mg for 7 days and prednisone 40 mg daily for 5 days. In view of chest pain, first troponin is negative. Telemetry shows 4 beats of pulseless bigeminy. 2D echo and repeat troponin ordered. The patient had pharmacological nuclear stress test in September 2013 which shows normal with preserved EF 61%. She had echo in 2011 which shows EF 60%, mild concentric LVH with normal left ventricular systolic function. Normal right ventricle normal right and left atria. I have discussed my assessment with Sabi LUI and orders have been reviewed. Code Visit Inpatient E&M: 79917 Subs Hosp L3
[2017-05-26] MEDS: LORazepam 1 MG Tablet 2 MG PO ×2 (11:11→21:03)
[2017-05-26] MEDS: guaiFENesin/Codeine 5 ML UDC 10 ML PO (11:11)
[2017-05-26] MEDS: guaiFENesin Dm 10 ML UDC PO ×4 (11:13→21:03)
--- NOTE | 2017-05-26 13:00 | CASEMGMT ---
Readmit: 05/20/17-05/23/17. Pt was discharged to home after mechanical fall clomplicated by L chest and ribs contusion. Pulse ox to 88% on ambulation, placed on oxygen via NC. Home with family who bought rollator which pt has at home. -Intro role of CM to patient. She states she was doing well at home. Per PT, she does not demonstrate need for skilled therapy. Pt did not wear oxygen @ home. Is presently on 2L NC and sat is 97%. Do not anticipate will need Home O2. -DC PLAN: Home on discharge. Eli WELLINGTONN RN ACM
--- NOTE | 2017-05-26 14:29 | NURSING ---
DR MARTEL IS REVIEWING PT'S TELE PT HAD SOME BIGEMINY AROUND 0810- NON SYMPTOMATIC
[2017-05-26] MEDS: Fluticasone 0.05% 1 SPRAY NASAL.SRY 2 SPRAY NASAL (21:03)
[2017-05-27] VITALS (15 sets, daily range): BP systolic 108–129; BP diastolic 51–80; PULSE 68–88; RESP 16–20; TEMP 36.4–36.8; O2SAT 92–96
[2017-05-27] MEDS: Ipratropium/Albuterol Sulfate 3 ML AMPUL.NEB INHALATION ×3 (01:09→18:47)
[2017-05-27] MEDS: Levothyroxine 50 MCG Tablet PO (06:12)
[2017-05-27] MEDS: guaiFENesin Dm 10 ML UDC PO ×5 (06:12→21:15)
[2017-05-27 07:38] LABS: Absolute Neutrophil Count 8.7 X10^3/uL (2.0-7.7); Basophil# 0.02 X10^3/uL; Basophil% 0.2 % (0-1); Eosinophil# 0.02 X10^3/uL; Eosinophils% 0.2 % (0-5); Hematocrit 38.9 % (37-47); Hemoglobin 12.1 g/dl (12.0-15.0); Lymphocyte % 22.2 % (19-41); Mean Corp Hgb Conc 31.1 g/gl (32-36); Mean Corpuscular Hgb 27.1 pg (27.0-32.0); Mean Corpuscular Volume 87.2 fL (81-99); Mean Platelet Vol. 9.5 fl (6.2-12.0); Monocyte# 1.05 X10^3/uL; Monocyte% 8.3 % (0-10); Neutrophil # 8.66 X10^3/uL (2.7-7.7); Neutrophil % 68.4 % (47-70); Platelet Count 313 K/mm3 (150-450); RBC Distribution Width CV 15.9 % (11.6-14.6); RBC Distribution Width SD 50.6 fl (35.1-43.9); Red Blood Count 4.46 M/mm3 (4.2-5.4); White Blood Count 12.6 K/mm3 (4.4-11.0)
[2017-05-27 07:42] LABS: POSITIVE COUNT NO; POSITIVE DIFFERENTIAL NO; POSITIVE MORPHOLOGY NO
--- NOTE | 2017-05-27 09:21 | PN_ITS ---
<Sabi Florez - Last Filed: 05/27/17 09:21> Subjective: Patient seen and examined. Resting on side of bed eating breakfast, in no acute distress. Patient continues to complain of left-sided rib pain which is worsened with deep breaths and cough. Denies fever, chills. Denies dizziness, lightheadedness, palpitations. Patient has mild shortness of breath with exertion. She was weaned off of oxygen and is now stable on room air. States rib pain is 6/10 with deep breath/cough. - Physical Exam General: Alert, Oriented x3, Cooperative, No apparent distress HEENT: Atraumatic, PERRLA, EOMI, Normocephalic Neck: Supple, No JVD, Negative Carotid Bruits Lungs: Clear to auscultation, Diminished Cardiovascular: Regular rate, Regular Rhythm, Normal S1, Normal S2, No murmurs Abdomen: Bowel Sounds Present, Soft, Non Tender, Non-Distended, Obese Extremities: No clubbing, No cyanosis, No edema, Capillary Refill Less than 3 Seconds Skin: No rashes, No breakdown Musculoskeletal: No Tenderness to Palpation of Joints or Extremities Neurological: Cranial nerves II-XII grossly intact, Neuro grossly intact Psych/Mental Status: Normal Affect, Appropriate Vital Signs Temp Pulse Resp BP Pulse Ox 97.7 F L 74 18 108/80 95 05/27/17 03:05 05/27/17 07:08 05/27/17 07:08 05/27/17 03:05 05/27/17 07:10 Oxygen Flow Rate 2 Oxygen Delivery Method Room Air Weight: 97.5 kg Body Mass Index (BMI) 39.3 Intake and Output for Last 24 Hours 05/25/17 05/26/17 05/27/17 23:59 23:59 23:59 Intake Total 1350 / 1350 500 / 500 Output Total 700 / 700 500 / 500 Balance 650 / 650 0 / 0 Laboratory Tests Past 24 Hrs 05/26/17 05/27/17 16:32 07:05 WBC 12.6 H RBC 4.46 Hgb 12.1 Hct 38.9 MCV 87.2 MCH 27.1 MCHC 31.1 L RDW 15.9 H RDW Differential 50.6 H Plt Count 313 MPV 9.5 Immature Gran % (Auto) 0.700 Neut % (Auto) 68.4 Lymph % (Auto) 22.2 [place] % (Auto) 8.3 Eos % (Auto) 0.2 Baso % (Auto) 0.2 Absolute Neuts (auto) 8.7 H Absolute Lymphs (auto) 2.80 Total Counted Not Reportable Troponin I < 0.02 Assessment/Plan Patient is a 62-year-old female admitted 05/26/17 due to left-sided chest pain. She was recently admitted 05/20/17 due to mechanical fall which resulted in left chest and rib contusions and closed head injury. She also had questionable pneumonia at that time. She returned to the emergency room today with worsening left-sided chest pain. She has a past medical history of hypertension , hypothyroidism, GERD, chronic back pain, depression, anxiety. 1. Intractable left sided chest/rib pain-secondary to recent mechanical fall with pulmonary contusion. Chest CTA without evidence of pulmonary embolism or arterial dissection. Groundglass opacities in the left lower lobe and right upper lobe. No rib fractures, pneumothoraces, or soft tissue contusions. Continue Lidoderm patch, OxyIR and morphine as needed for pain. Continue prednisone 40 mg daily for 5 days. Echocardiogram shows an estimated ejection fraction of 70%, mildly enlarged left atrium, RVSP estimated to be [address] T changes. Troponin negative. PT/OT. Pain is slowly improving. Encouraged patient to ambulate as much as possible and to use incentive spirometer every hour while awake. Anticipate discharge home tomorrow if continued improvement of pain. 2. Acute hypoxia-secondary to #1. Patient was weaned off of oxygen and is now stable on room air. Continue pain control, incentive spirometer and albuterol DuoNeb aerosols. 3. Suspected community-acquired pneumonia-pneumonia was suspected during recent admission and patient was treated empirically with 3 days of IV Rocephin and Zithromax. Patient has continued cough which is nonproductive. Mild leukocytosis. Afebrile. Pulmonary medicine recommending treating empirically with Levaquin 500 mg for 7 days given groundglass opacities noted in the left lower lobe and right upper lobe. 4. Hypertension-stable, continue losartan. 5. Hypothyroidism-continue Synthroid. 6. GERD- continue PPI. 7. Chronic back pain-continue lyrica. Oxyir and morphine PRN for pain. 8. Depression/anxiety- continue home regimen including ativan, paxil, trazodone. DVT prophylaxis- Lovenox SC This patient was seen by CLYDE Salgado under the supervision of Dr. Mcpherson. <Petey Mcpherson - Last Filed: 05/27/17 15:32> Subjective: Seen and examined. Agree with the above documentation. - Physical Exam Lungs: Diminished, - - Mild reproducible tenderness chest wall over left inframammary region Vital Signs Temp Pulse Resp BP Pulse Ox 98.2 F 82 18 125/57 H 92 05/27/17 14:35 05/27/17 15:22 05/27/17 14:35 05/27/17 14:35 05/27/17 14:35 Oxygen Flow Rate 2 Oxygen Delivery Method Room Air Weight: 214 lb 15.211 oz Body Mass Index (BMI) 39.3 Intake and Output for Last 24 Hours 05/25/17 05/26/17 05/27/17 23:59 23:59 23:59 Intake Total 1350 / 1350 500 / 500 Output Total 700 / 700 1900 / 1900 Balance 650 / 650 -1400 / -1400 Laboratory Tests Past 24 Hrs 05/26/17 05/27/17 16:32 07:05 WBC 12.6 H RBC 4.46 Hgb 12.1 Hct 38.9 MCV 87.2 MCH 27.1 MCHC 31.1 L RDW 15.9 H RDW Differential 50.6 H Plt Count 313 MPV 9.5 Immature Gran % (Auto) 0.700 Neut % (Auto) 68.4 Lymph % (Auto) 22.2 [place] % (Auto) 8.3 Eos % (Auto) 0.2 Baso % (Auto) 0.2 Absolute Neuts (auto) 8.7 H Absolute Lymphs (auto) 2.80 Total Counted Not Reportable Troponin I < 0.02 Assessment/Plan This patient was seen in conjunction with Sabi LUI. I have independently interviewed and examined the patient and reviewed pertinent history, examination findings, laboratory and plan of management. I have reviewed the note and agree with the documented findings with the few additional points. In brief, patient is admitted for left-sided inframammary pain with CT findings of groundglass opacities in left lower lobe and right lower lobe with no change from the previous CT chest of previous admission. The patient had 3 days of IV ceftriaxone and Zithromax during previous admission. This was discussed with the office coordinator Dr. Alcantar and he reviewed the both CT scans chest and suggested Levaquin 500 mg for 7 days and prednisone 40 mg daily for 5 days. On May 26, telemetry showed 4 beats of pulseless bigeminy. Troponin enzymes are negative. 2D echo was done and reported as EF 70% with no regional wall motion abnormality, normal left ventricular size and systolic function. Left atrium mildly enlarged. Normal right atrium. The patient had pharmacological nuclear stress test in September 2013 which shows normal with preserved EF 61%. She had echo in 2011 which shows EF 60%, mild concentric LVH with normal left ventricular systolic function. Normal right ventricle normal right and left atria. I have discussed my assessment with ACCOUNTS RECEIVABLE ANALYSTSabi and orders have been reviewed. Code Visit Inpatient E&M: 62091 Subs Hosp L3
[2017-05-27] MEDS: Pregabalin 75 MG Capsule 150 MG PO ×2 (10:22→21:15)
[2017-05-27] MEDS: LORazepam 1 MG Tablet 2 MG PO ×2 (10:22→21:15)
[2017-05-27] MEDS: Senna/Docusate Sodium 1 Tablet PO ×2 (10:22→21:15)
[2017-05-27] MEDS: Losartan Potassium 50 MG Tablet PO (10:22)
[2017-05-27] MEDS: Enoxaparin 30 MG/0.3 ML Syringe SC (10:23)
[2017-05-27] MEDS: Sucralfate 1 GM Tablet PO (10:23)
[2017-05-27] MEDS: Lidocaine 5% Patch 1 PATCH TOPICAL (10:23)
[2017-05-27] MEDS: 0.9% NaCl Peripheral Flush Adult/Peds IV ×2 (10:23→14:37)
[2017-05-27] MEDS: oxyCODONE 5 MG Tablet PO ×2 (12:05→18:39)
[2017-05-27] MEDS: Pantoprazole Sodium 40 MG Tablet PO (21:15)
[2017-05-27] MEDS: Fluticasone 0.05% 1 SPRAY NASAL.SRY 2 SPRAY NASAL (21:15)
[2017-05-28] VITALS (7 sets, daily range): BP systolic 114–158; BP diastolic 60–85; PULSE 66–87; RESP 16–20; TEMP 36.8–36.9; O2SAT 91–96
[2017-05-28] MEDS: oxyCODONE 5 MG Tablet PO (00:45)
[2017-05-28] MEDS: Ipratropium/Albuterol Sulfate 3 ML AMPUL.NEB INHALATION ×2 (01:04→06:56)
[2017-05-28] MEDS: Levothyroxine 50 MCG Tablet PO (05:21)
[2017-05-28] MEDS: guaiFENesin Dm 10 ML UDC PO ×2 (05:21→09:40)
[2017-05-28] MEDS: 0.9% NaCl Peripheral Flush Adult/Peds IV ×2 (05:23→09:41)
[2017-05-28 06:46] LABS: Hematocrit 37.4 % (37-47); Hemoglobin 11.8 g/dl (12.0-15.0); Mean Corp Hgb Conc 31.6 g/gl (32-36); Mean Corpuscular Hgb 27.4 pg (27.0-32.0); Mean Corpuscular Volume 86.8 fL (81-99); Mean Platelet Vol. 10.1 fl (6.2-12.0); Platelet Count 320 K/mm3 (150-450); RBC Distribution Width CV 16.2 % (11.6-14.6); RBC Distribution Width SD 50.3 fl (35.1-43.9); Red Blood Count 4.31 M/mm3 (4.2-5.4); White Blood Count 11.6 K/mm3 (4.4-11.0)
[2017-05-28 06:50] LABS: Scan Indicated on CBC? Y/N NO
[2017-05-28 07:14] LABS: Anion Gap 7 (5-15); BUN 18 mg/dL (7-18); BUN/Creat Ratio 25.5 RATIO (10-20); Calcium,Total 8.3 mg/dL (8.5-10.1); Chloride 108 mmol/L (98-107); EST Glomerular Filtration Rate 89 mL/min (>60); Est Glom Filt Rate - Afr Amer 108 mL/min (>60); Estimated Creatinine Clearance 65.06 ml/min; Glucose 99 mg/dL (74-106); Potassium 3.8 mmol/L (3.5-5.1); Sodium Level 142 mmol/L (136-145)
--- NOTE | 2017-05-28 09:22 | PCM.DC ---
You will use the following diet at home:: No restrictions Discharge Activity: Return to Normal Activity Call your doctor if you observe: Shortness of breath, Dizziness, Fainting spells, Chest pain, Increased palpitations (irregular heartbeat) Additional Instructions: You were given order for chest x-ray at discharge during your previous admission. You will need to complete this as previously ordered which was scheduled for 06/20/2017. Follow-up with pulmonary medicine, Dr. Alcantar or Dr. Figueroa after completion of chest x-ray, in approximately 4 weeks. You were not given further pain medicine at discharge given you follow with Dr. Bean, pain mainagement. You can continue taking prescribed vicodin for pain. Allergies/Adverse Reactions: Allergies No Known Allergies Allergy (Verified 05/25/17 18:48) Medications to take at Discharge Paroxetine HCl [Paxil] 60 mg PO DAILY 01/29/13 Pregabalin [Lyrica] 150 mg PO BID 01/29/13 Trazodone HCl [Desyrel] 100 mg PO QHS 01/29/13 Hydrocodone/Acetaminophen [Vicodin 5-300 mg Tablet] 1 - 2 tablet PO BID 10/16/13 Esomeprazole Mag Trihydrate [Nexium] 40 mg PO QHS 05/16/14 Losartan Potassium [Cozaar] 50 mg PO DAILY 05/16/14 Levothyroxine [Synthroid] 50 mcg PO DAILY 10/03/14 Naproxen [Naprosyn] 500 mg PO BID #20 tablet 06/18/15 Lorazepam [Ativan] 2 mg PO BID 10/11/16 Mometasone Furoate [Nasonex] 2 spray NASAL QHS 10/11/16 Cholecalciferol (Vitamin D3) [Vitamin D3] 50,000 units PO KEITA 05/20/17 Pantoprazole Sodium [Protonix] 40 mg PO DAILY 05/20/17 Albuterol Inhaler [Ventolin Hfa] 1 - 2 puff INHALATION Q6H PRN PRN #1 inhaler 05/23/17 Budesonide Inhaler 90 mcg [Pulmicort Flexhaler 90 mcg] 1 puff INHALATION BID #1 inhaler 05/23/17 Guaifenesin [Mucinex] 1,200 mg PO BID #14 tab 05/23/17 Sucralfate 1 gm PO DAILY 02/15/18 Benzonatate [Tessalon Perle] 100 mg PO TID PRN PRN #30 cap 05/28/17 Levofloxacin [Levaquin] 500 mg PO DAILY #3 tab 05/28/17 Prednisone 40 mg PO DAILY 3 Days #6 tab 05/28/17 The following prescriptions were given: Benzonatate [Tessalon Perle] 100 mg PO TID PRN PRN #30 cap PRN Reason: Cough Levofloxacin [Levaquin] 500 mg PO DAILY #3 tab Prednisone 40 mg PO DAILY 3 Days #6 tab Primary Care Physician: Olivia Gates DO [Primary Care Provider] - Please follow up with your Primary Care Physician in: 1 Week Please Follow Up With: Kay Bean MD When: As scheduled Please Follow Up With: Kenny Alcantar DO When: 4 weeks, following repeat chest x-ray. Proposed Discharge Date: 05/28/17
--- NOTE | 2017-05-28 09:29 | PCM.DC.SUM ---
<Sabi Florez - Last Filed: 05/28/17 09:39> Discharge Date and Diagnosis Date of Admission: 05/26/17 Date of Discharge: 05/28/17 - Primary Discharge Diagnosis 1. Intractable left-sided rib pain secondary to mechanical fall with pulmonary contusion 2. Acute hypoxia-secondary to #1. Resolved. 3. Suspected community-acquired pneumonia - Secondary Discharge Diagnosis Chronic Problems GERD (gastroesophageal reflux disease) (Chronic) Depression (Chronic) Anxiety (Chronic) Hypothyroidism (Chronic) HTN (hypertension) (Chronic) Chronic back pain (Chronic) Hospital Course and Treatment Imaging Results: Diagnostic Data Chest CTA 05/25/17 21:12 IMPRESSION: Normal CTA chest examination, without a demonstrated pulmonary embolism or arterial dissection. Groundglass opacities in the left lower lobe and right upper lobe. With the given history of fall these may represent pulmonary contusions No rib fractures, pneumothoraces or any soft tissue contusions in the anterior chest wall Electronically Signed: Adilson Ryder, at 23:38 EST Tel , Service support , Chest X-Ray 05/25/17 21:20 IMPRESSION: Left midlung field infiltrate appears similar to the prior study, allowing for differences in radiographic technique. Calcified plaques of the aortic arch. Minimal right mid lung field fibrosis or atelectasis, stable in the interval. Electronically Signed: Lázaro Gutierrez MD at 22:14 EST , Service support , Operations: None Procedures: None Summary of Care Provided: Patient is a 62-year-old female admitted 05/26/17 due to left-sided chest pain. She was recently admitted 05/20/17 due to mechanical fall which resulted in left chest and rib contusions and closed head injury. She also had questionable pneumonia at that time. She returned to the emergency room with worsening left-sided chest pain. She has a past medical history of hypertension, hypothyroidism, GERD, chronic back pain, depression, anxiety. 1. Intractable left sided chest/rib pain-secondary to recent mechanical fall with pulmonary contusion. Chest CTA without evidence of pulmonary embolism or arterial dissection. Groundglass opacities in the left lower lobe and right upper lobe. No rib fractures, pneumothoraces, or soft tissue contusions. Patient's pain is now fairly well-controlled. She states she has increased pain with cough. Discharged with Tessalon Perles as needed for cough. She will continue prednisone 40 mg at discharge for a total of 5 days. She was not discharged on further pain medication as she follows with Dr. Bean, pain management. She can continue home Vicodin regimen for pain. Echocardiogram showed an estimated ejection fraction of 70%, mildly enlarged left atrium, RVSP estimated to be [address] T changes. Troponin negative. Continue incentive spirometer at discharge. 2. Acute hypoxia-secondary to #1. Resolved. Walking pulse ox completed prior to discharge. Patient is stable on room air. 3. Suspected community-acquired pneumonia-pneumonia was suspected during recent admission and patient was treated empirically with 3 days of IV Rocephin and Zithromax. Patient has continued cough which is nonproductive. Mild leukocytosis. Afebrile. Leukocytosis may be secondary to steroid usage. Pulmonary medicine recommending treating empirically with Levaquin 500 mg for 7 days given groundglass opacities noted in the left lower lobe and right upper lobe. Patient will have repeat chest x-ray 06/20/2017 and follow-up with Dr. Alcantar/Dr. Figueroa in 1 month. Other chronic medical conditions as noted above are stable at this time. Patient is stable for discharge home. General: Alert, Oriented x3, Cooperative, No apparent distress HEENT: Atraumatic, PERRLA, EOMI, Normocephalic Neck: Supple, No JVD, Negative Carotid Bruits Lungs: Clear to auscultation, Diminished Cardiovascular: Regular rate, Regular Rhythm, Normal S1, Normal S2, No murmurs Abdomen: Bowel Sounds Present, Soft, Non Tender, Non-Distended, Obese Extremities: No clubbing, No cyanosis, No edema, Capillary Refill Less than 3 Seconds Skin: No rashes, No breakdown Musculoskeletal: No Tenderness to Palpation of Joints or Extremities Neurological: Cranial nerves II-XII grossly intact, Neuro grossly intact Psych/Mental Status: Normal Affect, Appropriate Patient seen and examined prior to discharge. Physical assessment as noted above. This patient was seen by CLYDE Salgado under the supervision of Dr. Mcpherson. Discharge Diet: No Restrictions Discharge Activity: Return to Normal Activity Call your doctor if you observe: Shortness of breath, Dizziness, Fainting spells, Chest pain, Increased palpitations (irregular heartbeat) Home Medications: Medications to take at Discharge Paroxetine HCl [Paxil] 60 mg PO DAILY 01/29/13 Pregabalin [Lyrica] 150 mg PO BID 01/29/13 Trazodone HCl [Desyrel] 100 mg PO QHS 01/29/13 Hydrocodone/Acetaminophen [Vicodin 5-300 mg Tablet] 1 - 2 tablet PO BID 10/16/13 Esomeprazole Mag Trihydrate [Nexium] 40 mg PO QHS 05/16/14 Losartan Potassium [Cozaar] 50 mg PO DAILY 05/16/14 Levothyroxine [Synthroid] 50 mcg PO DAILY 10/03/14 Naproxen [Naprosyn] 500 mg PO BID #20 tablet 06/18/15 Lorazepam [Ativan] 2 mg PO BID 10/11/16 Mometasone Furoate [Nasonex] 2 spray NASAL QHS 10/11/16 Cholecalciferol (Vitamin D3) [Vitamin D3] 50,000 units PO KEITA 05/20/17 Pantoprazole Sodium [Protonix] 40 mg PO DAILY 05/20/17 Albuterol Inhaler [Ventolin Hfa] 1 - 2 puff INHALATION Q6H PRN PRN #1 inhaler 05/23/17 Budesonide Inhaler 90 mcg [Pulmicort Flexhaler 90 mcg] 1 puff INHALATION BID #1 inhaler 05/23/17 Guaifenesin [Mucinex] 1,200 mg PO BID #14 tab 05/23/17 Sucralfate 1 gm PO DAILY 05/25/17 Benzonatate [Tessalon Perle] 100 mg PO TID PRN PRN #30 cap 05/28/17 Levofloxacin [Levaquin] 500 mg PO DAILY #5 tab 05/28/17 Prednisone 40 mg PO DAILY 3 Days #6 tab 05/28/17 Following Prescrptions Were Given to Patient: Benzonatate [Tessalon Perle] 100 mg PO TID PRN PRN #30 cap PRN Reason: Cough Levofloxacin [Levaquin] 500 mg PO DAILY #5 tab Prednisone 40 mg PO DAILY 3 Days #6 tab Primary Care Physician: Olivia Gates DO [Primary Care Provider] - Please follow up with your Primary Care Physician in: 1 Week Please Follow Up With: Kay Bean MD When: As scheduled Please Follow Up With: Kenny Alcantar DO When: 4 weeks, following repeat chest x-ray. Additional Instructions: You were given order for chest x-ray at discharge during your previous admission. You will need to complete this as previously ordered which was scheduled for 06/20/2017. Follow-up with pulmonary medicine, Dr. Alcantar or Dr. Figueroa after completion of chest x-ray, in approximately 4 weeks. You were not given further pain medicine at discharge given you follow with Dr. Bean, pain mainagement. You can continue taking prescribed vicodin for pain. Disposition: Home Minutes spent on discharge:: 35 Patient Condition:: Stable Meaningful Use Info Meaningful Use Diagnoses (Choose all that apply): None applicable <Petey Mcpherson - Last Filed: 05/28/17 17:56> Discharge Date and Diagnosis - Secondary Discharge Diagnosis Chronic Problems GERD (gastroesophageal reflux disease) (Chronic) Depression (Chronic) Anxiety (Chronic) Hypothyroidism (Chronic) HTN (hypertension) (Chronic) Chronic back pain (Chronic) Hospital Course and Treatment Summary of Care Provided: This patient was seen in conjunction with SCORING MACHINE OPERATOR, Sabi. I have independently interviewed and examined the patient and reviewed pertinent history, examination findings, laboratory and plan of management. I have reviewed the note and agree with the documented findings with the few additional points. In brief, patient is admitted for left-sided inframammary pain with CT findings of groundglass opacities in left lower lobe and right lower lobe with no change from the previous CT chest of previous admission. The patient had 3 days of IV ceftriaxone and Zithromax during previous admission. This was discussed with the box machine operator Dr. Alcantar and he reviewed the both CT scans chest and suggested Levaquin 500 mg for 7 days and prednisone 40 mg daily for 5 days. On May 26, telemetry showed 4 beats of pulseless bigeminy. Troponin enzymes are negative. 2D echo was done and reported as EF 70% with no regional wall motion abnormality, normal left ventricular size and systolic function. Left atrium mildly enlarged. Normal right atrium. The patient had pharmacological nuclear stress test in September 2013 which shows normal with preserved EF 61%. She had echo in 2012 which shows EF 60%, mild concentric LVH with normal left ventricular systolic function. Normal right ventricle normal right and left atria. Patient was advised repeat chest x-ray PA and lateral for which order was given during previous discharge. Follow-up with Dr. Alcantar/Dr. Figueroa in 1 month. I have discussed my assessment with SCORING MACHINE OPERATORSabi and orders have been reviewed. [] Code Visit Inpatient E&M: 74820 Disch Hosp
[2017-05-28] MEDS: Senna/Docusate Sodium 1 Tablet PO (09:35)
[2017-05-28] MEDS: LORazepam 1 MG Tablet 2 MG PO (09:35)
[2017-05-28] MEDS: Sucralfate 1 GM Tablet PO (09:35)
[2017-05-28] MEDS: Losartan Potassium 50 MG Tablet PO (09:35)
[2017-05-28] MEDS: Lidocaine 5% Patch 1 PATCH TOPICAL (09:36)
[2017-05-28] MEDS: Enoxaparin 30 MG/0.3 ML Syringe SC (09:36)
--- NOTE | 2017-05-28 09:38 | DS.PCM_ITS ---
<Sabi Florez - Last Filed: 05/28/17 09:39> Discharge Date and Diagnosis Date of Admission: 05/26/17 Date of Discharge: 05/28/17 - Primary Discharge Diagnosis 1. Intractable left-sided rib pain secondary to mechanical fall with pulmonary contusion 2. Acute hypoxia-secondary to #1. Resolved. 3. Suspected community-acquired pneumonia - Secondary Discharge Diagnosis Chronic Problems GERD (gastroesophageal reflux disease) (Chronic) Depression (Chronic) Anxiety (Chronic) Hypothyroidism (Chronic) HTN (hypertension) (Chronic) Chronic back pain (Chronic) Hospital Course and Treatment Imaging Results: Diagnostic Data Chest CTA 05/25/17 21:12 IMPRESSION: Normal CTA chest examination, without a demonstrated pulmonary embolism or arterial dissection. Groundglass opacities in the left lower lobe and right upper lobe. With the given history of fall these may represent pulmonary contusions No rib fractures, pneumothoraces or any soft tissue contusions in the anterior chest wall Electronically Signed: Adilson Ryder, at 23:38 EST Tel , Service support , Chest X-Ray 05/25/17 21:20 IMPRESSION: Left midlung field infiltrate appears similar to the prior study, allowing for differences in radiographic technique. Calcified plaques of the aortic arch. Minimal right mid lung field fibrosis or atelectasis, stable in the interval. Electronically Signed: Lázaro Gutierrez MD at 22:14 EST , Service support , Operations: None Procedures: None Summary of Care Provided: Patient is a 62-year-old female admitted 05/26/17 due to left-sided chest pain. She was recently admitted 05/20/17 due to mechanical fall which resulted in left chest and rib contusions and closed head injury. She also had questionable pneumonia at that time. She returned to the emergency room with worsening left- sided chest pain. She has a past medical history of hypertension, hypothyroidism, GERD, chronic back pain, depression, anxiety. 1. Intractable left sided chest/rib pain-secondary to recent mechanical fall with pulmonary contusion. Chest CTA without evidence of pulmonary embolism or arterial dissection. Groundglass opacities in the left lower lobe and right upper lobe. No rib fractures, pneumothoraces, or soft tissue contusions. Patient's pain is now fairly well-controlled. She states she has increased pain with cough. Discharged with Tessalon Perles as needed for cough. She will continue prednisone 40 mg at discharge for a total of 5 days. She was not discharged on further pain medication as she follows with Dr. Bean, pain management. She can continue home Vicodin regimen for pain. Echocardiogram showed an estimated ejection fraction of 70%, mildly enlarged left atrium, RVSP estimated to be [address] T changes. Troponin negative. Continue incentive spirometer at discharge. 2. Acute hypoxia-secondary to #1. Resolved. Walking pulse ox completed prior to discharge. Patient is stable on room air. 3. Suspected community-acquired pneumonia-pneumonia was suspected during recent admission and patient was treated empirically with 3 days of IV Rocephin and Zithromax. Patient has continued cough which is nonproductive. Mild leukocytosis. Afebrile. Leukocytosis may be secondary to steroid usage. Pulmonary medicine recommending treating empirically with Levaquin 500 mg for 7 days given groundglass opacities noted in the left lower lobe and right upper lobe. Patient will have repeat chest x-ray 06/20/2017 and follow-up with Dr. Alcantar/Dr. Figueroa in 1 month. Other chronic medical conditions as noted above are stable at this time. Patient is stable for discharge home. General: Alert, Oriented x3, Cooperative, No apparent distress HEENT: Atraumatic, PERRLA, EOMI, Normocephalic Neck: Supple, No JVD, Negative Carotid Bruits Lungs: Clear to auscultation, Diminished Cardiovascular: Regular rate, Regular Rhythm, Normal S1, Normal S2, No murmurs Abdomen: Bowel Sounds Present, Soft, Non Tender, Non-Distended, Obese Extremities: No clubbing, No cyanosis, No edema, Capillary Refill Less than 3 Seconds Skin: No rashes, No breakdown Musculoskeletal: No Tenderness to Palpation of Joints or Extremities Neurological: Cranial nerves II-XII grossly intact, Neuro grossly intact Psych/Mental Status: Normal Affect, Appropriate Patient seen and examined prior to discharge. Physical assessment as noted above. This patient was seen by CLYDE Salgado under the supervision of Dr. Mcpherson. Discharge Diet: No Restrictions Discharge Activity: Return to Normal Activity Call your doctor if you observe: Shortness of breath, Dizziness, Fainting spells , Chest pain, Increased palpitations (irregular heartbeat) Home Medications: Medications to take at Discharge Paroxetine HCl [Paxil] 60 mg PO DAILY 01/29/13 Pregabalin [Lyrica] 150 mg PO BID 01/29/13 Trazodone HCl [Desyrel] 100 mg PO QHS 01/29/13 Hydrocodone/Acetaminophen [Vicodin 5-300 mg Tablet] 1 - 2 tablet PO BID Esomeprazole Mag Trihydrate [Nexium] 40 mg PO QHS 05/16/14 Losartan Potassium [Cozaar] 50 mg PO DAILY 05/16/14 Levothyroxine [Synthroid] 50 mcg PO DAILY 10/03/14 Naproxen [Naprosyn] 500 mg PO BID #20 tablet 06/18/15 Lorazepam [Ativan] 2 mg PO BID 10/11/16 Mometasone Furoate [Nasonex] 2 spray NASAL QHS 10/11/16 Cholecalciferol (Vitamin D3) [Vitamin D3] 50,000 units PO KEITA 05/20/17 Pantoprazole Sodium [Protonix] 40 mg PO DAILY 05/20/17 Albuterol Inhaler [Ventolin Hfa] 1 - 2 puff INHALATION Q6H PRN PRN #1 inhaler Budesonide Inhaler 90 mcg [Pulmicort Flexhaler 90 mcg] 1 puff INHALATION BID #1 inhaler 05/23/17 Guaifenesin [Mucinex] 1,200 mg PO BID #14 tab 05/23/17 Sucralfate 1 gm PO DAILY 05/25/17 Benzonatate [Tessalon Perle] 100 mg PO TID PRN PRN #30 cap 05/28/17 Levofloxacin [Levaquin] 500 mg PO DAILY #5 tab 05/28/17 Prednisone 40 mg PO DAILY 3 Days #6 tab 05/28/17 Following Prescrptions Were Given to Patient: Benzonatate [Tessalon Perle] 100 mg PO TID PRN PRN #30 cap PRN Reason: Cough Levofloxacin [Levaquin] 500 mg PO DAILY #5 tab Prednisone 40 mg PO DAILY 3 Days #6 tab Primary Care Physician: Olivia Gates DO [Primary Care Provider] - Please follow up with your Primary Care Physician in: 1 Week Please Follow Up With: Kay Bean MD When: As scheduled Please Follow Up With: Kenny Alcantar DO When: 4 weeks, following repeat chest x-ray. Additional Instructions: You were given order for chest x-ray at discharge during your previous admission. You will need to complete this as previously ordered which was scheduled for 06/20/2017. Follow-up with pulmonary medicine, Dr. Alcantar or Dr. Figueroa after completion of chest x-ray, in approximately 4 weeks. You were not given further pain medicine at discharge given you follow with Dr. Bean, pain mainagement. You can continue taking prescribed vicodin for pain. Disposition: Home Minutes spent on discharge:: 35 Patient Condition:: Stable Meaningful Use Info Meaningful Use Diagnoses (Choose all that apply): None applicable <Petey Mcpherson - Last Filed: 05/28/17 17:56> Discharge Date and Diagnosis - Secondary Discharge Diagnosis Chronic Problems GERD (gastroesophageal reflux disease) (Chronic) Depression (Chronic) Anxiety (Chronic) Hypothyroidism (Chronic) HTN (hypertension) (Chronic) Chronic back pain (Chronic) Hospital Course and Treatment Summary of Care Provided: This patient was seen in conjunction with PULP GRINDER, Sabi. I have independently interviewed and examined the patient and reviewed pertinent history, examination findings, laboratory and plan of management. I have reviewed the note and agree with the documented findings with the few additional points. In brief, patient is admitted for left-sided inframammary pain with CT findings of groundglass opacities in left lower lobe and right lower lobe with no change from the previous CT chest of previous admission. The patient had 3 days of IV ceftriaxone and Zithromax during previous admission. This was discussed with the rn discharge Dr. Alcantar and he reviewed the both CT scans chest and suggested Levaquin 500 mg for 7 days and prednisone 40 mg daily for 5 days. On May 26, telemetry showed 4 beats of pulseless bigeminy. Troponin enzymes are negative. 2D echo was done and reported as EF 70% with no regional wall motion abnormality, normal left ventricular size and systolic function. Left atrium mildly enlarged. Normal right atrium. The patient had pharmacological nuclear stress test in September 2013 which shows normal with preserved EF 61%. She had echo in 2012 which shows EF 60%, mild concentric LVH with normal left ventricular systolic function. Normal right ventricle normal right and left atria. Patient was advised repeat chest x-ray PA and lateral for which order was given during previous discharge. Follow-up with Dr. Alcantar/Dr. Figueroa in 1 month. I have discussed my assessment with PULP GRINDERSabi and orders have been reviewed. [] Code Visit Inpatient E&M: 21774 Disch Hosp
[2017-05-28] MEDS: Pregabalin 75 MG Capsule 150 MG PO (09:39)
== END 2017-05-28 12:01 | disposition home or self-care (01) | DRG 205 ==
LOC: ED 21:55 → MS2 05-26 01:44
PROVIDERS: Nurse Practitioner Family; Admitting Provider Hospitalist; Emergency Provider Emergency Medicine; Family Provider Family Medicine; PCP Family Medicine; Visit Provider Internal Medicine
DX: S27.321A Contusion of lung, unilateral, initial encounter (principal); J18.9 Pneumonia, unspecified organism; W19.XXXA Unspecified fall, initial encounter; R09.02 Hypoxemia; K21.9 Gastro-esophageal reflux disease without esophagitis; F32.9 Major depressive disorder, single episode, unspecified; F41.9 Anxiety disorder, unspecified; I10 Essential (primary) hypertension; M54.9 Dorsalgia, unspecified; G89.29 Other chronic pain; R07.81 Pleurodynia; E03.9 Hypothyroidism, unspecified
CPT/HCPCS: 36415; 71045; 71275; 80048; 84484; 85025; 85027; 93005; 93306; 94640; 97161; 97165; 99283; J7040; Q9957; Q9967; A4216; J2405

== ENCOUNTER 2017-06-06 16:40 | Emergency (ER) | payer MEDICARE, SELFPAY ==
[2017-06-06 16:40] VITALS: BP 136/79; PULSE 86; RESP 16; TEMP 37.2; O2SAT 95; BMI 41.5
--- NOTE | 2017-06-06 17:04 | ED.VISSUMM ---
- ER Visit Summary Date of Service: 06/06/17 Chief Complaint: Back pain History of Present Illness: The patient is a [address] Gates. She reports that she has chronic back pain and it increased today. She states that she was coughing and when she stood to get out of her chair her back pain got acutely worse. States pain is 10 out of 10 with movement and 6 out of 10 at rest. There is no relation to her legs. No numbness in her groin. No problems with her bowels or her bladder. She fell 2 weeks ago but has not fallen since. No car accidents. No change in activity. Patient reports that the [place] that she should have a prescription for currently fell in the sink when she opened the bottle. She states that she did discuss this with Dr. Gates and she will not refill the prescription. She also reports that she has plans to see Dr. Arias, but has not made an appointment yet. She is seen Dr. Bean in the past. Physical Examination: Vitals: Stable. Afebrile. General: A&O x 3. NAD. Cardiovascular exam: Regular rate and rhythm, no murmur, rub or gallop. Respiratory exam: Clear to auscultation bilaterally. No wheezes or stridor. Abdominal exam: Soft, nontender, nondistended, normal bowel sounds. No peritoneal signs. Back: Moderate tenderness to palpation over the lparaspinous musculature in the lumbar region on the left. No point tenderness. Negative straight leg bilaterally. 5/5 DF, PF, EHL bilaterally. Normal sensation to light touch throughout. Extremity: No clubbing, cyanosis, or edema. Emergency Department Course and Treatment: An [facility] report was obtained she has had 13 prescriptions for opiates in the past year and currently has a prescription for 7.5 mg [place] 3 times daily. Again the patient reports that these fell on the sink. She was given 2 [place] here. Treatment Plan: I had a prolonged discussion with the patient that if her primary care physician, whom she knows, will not refill her [place] that I am not comfortable with this either. She is instructed to follow-up with Dr. Gates and/or Dr. Arias for further treatment of her pain. The signs and symptoms of cauda equina were discussed and she was instructed to return for these. Disposition: To home in improved and stable condition. Impression: 1. Acute on chronic back pain. This note was generated with [employer] dictation software. It may contain incorrect words, spelling, and punctuation that were not noted in review of the chart prior to signing ED Disposition - Plan for ED Patient: Chief Complaint: Lower Extremity Injury Instructions: ED Neck Back Pain General Referrals: Olivia Gates DO [Primary Care Provider] - As soon as possible Brian Arias [NON-STAFF] - As soon as possible
--- NOTE | 2017-06-06 17:09 | ED.DCSUM_ITS ---
- ER Visit Summary Date of Service: 06/06/17 Chief Complaint: Back pain History of Present Illness: The patient is a [address] Gates. She reports that she has chronic back pain and it increased today. She states that she was coughing and when she stood to get out of her chair her back pain got acutely worse. States pain is 10 out of 10 with movement and 6 out of 10 at rest. There is no relation to her legs. No numbness in her groin. No problems with her bowels or her bladder. She fell 2 weeks ago but has not fallen since. No car accidents. No change in activity. Patient reports that the [place] that she should have a prescription for currently fell in the sink when she opened the bottle. She states that she did discuss this with Dr. Gates and she will not refill the prescription. She also reports that she has plans to see Dr. Arias, but has not made an appointment yet. She is seen Dr. Bean in the past. Physical Examination: Vitals: Stable. Afebrile. General: A&O x 3. NAD. Cardiovascular exam: Regular rate and rhythm, no murmur, rub or gallop. Respiratory exam: Clear to auscultation bilaterally. No wheezes or stridor. Abdominal exam: Soft, nontender, nondistended, normal bowel sounds. No peritoneal signs. Back: Moderate tenderness to palpation over the lparaspinous musculature in the lumbar region on the left. No point tenderness. Negative straight leg bilaterally. 5/5 DF, PF, EHL bilaterally. Normal sensation to light touch throughout. Extremity: No clubbing, cyanosis, or edema. Emergency Department Course and Treatment: An OARRS report was obtained she has had 13 prescriptions for opiates in the past year and currently has a prescription for 7.5 mg [place] 3 times daily. Again the patient reports that these fell on the sink. She was given 2 [place] here. Treatment Plan: I had a prolonged discussion with the patient that if her primary care physician, whom she knows, will not refill her [place] that I am not comfortable with this either. She is instructed to follow-up with Dr. Gates and /or Dr. Arias for further treatment of her pain. The signs and symptoms of cauda equina were discussed and she was instructed to return for these. Disposition: To home in improved and stable condition. Impression: 1. Acute on chronic back pain. This note was generated with [employer] dictation software. It may contain incorrect words, spelling, and punctuation that were not noted in review of the chart prior to signing ED Disposition - Plan for ED Patient: Chief Complaint: Lower Extremity Injury Instructions: ED Neck Back Pain General Referrals: Olivia Gates DO [Primary Care Provider] - As soon as possible Brian Arias [NON-STAFF] - As soon as possible
[2017-06-06 17:16] VITALS: BP 122/65; PULSE 80; RESP 16; O2SAT 95
[2017-06-06] MEDS: HYDROcodone Bitartrate/Apap 5/325 Tablet PO (17:16)
== END 2017-06-06 17:26 | disposition home or self-care (01) ==
PROVIDERS: Emergency Provider Emergency Medicine; Family Provider Family Medicine; PCP Family Medicine
DX: M54.5 Low back pain (principal); G89.29 Other chronic pain; R05 Cough; R11.0 Nausea; R51 Headache; K21.9 Gastro-esophageal reflux disease without esophagitis; I10 Essential (primary) hypertension; F32.9 Major depressive disorder, single episode, unspecified; E03.9 Hypothyroidism, unspecified; F41.9 Anxiety disorder, unspecified; Z79.899 Other long term (current) drug therapy
CPT/HCPCS: 99284

== ENCOUNTER → 2017-06-21 13:54 | Outpatient (CLI) | payer MEDICARE, SELFPAY ==
--- NOTE | 2017-06-21 13:57 | RAD_ITS ---
STUDY: X-RAY CHEST REASON FOR EXAM: Female, 62 years old. Shortness of breath. TECHNIQUE: PA and lateral views of the chest. COMPARISON: CT of the chest dated May 25, 2017. FINDINGS: There is heterogeneous left basilar groundglass attenuation possibly representing pneumonia. There is mild interstitial thickening present in both lungs. There is no demonstrated pleural abnormality. Normal size heart. Normal mediastinum and dave. Normal visualized pulmonary arteries. There is atherosclerotic calcification of the aortic arch with tortuosity. There is demineralization of the osseous structures. Normal visualized ribs, clavicles, and shoulders. There is no demonstrated abnormality of the visualized soft tissue structures of the upper abdomen. RAD/Chest PA and Lateral IMPRESSION: Apparent left-sided airspace disease. Electronically Signed: Dina Bhatia MD at 8:41 EDT , Service support ,
== END ==
PROVIDERS: Family Provider Family Medicine; PCP Family Medicine; Visit Provider Internal Medicine
DX: R06.00 Dyspnea, unspecified (principal)
CPT/HCPCS: 71046

== ENCOUNTER 2017-06-22 14:48 | Emergency (ER) | payer MEDICARE, SELFPAY ==
[2017-06-22 14:49] VITALS: BP 151/92; PULSE 73; RESP 15; TEMP 37.4; O2SAT 96; BMI 39.3
[2017-06-22 15:08] VITALS: BP 151/92; PULSE 75; RESP 20; O2SAT 96
--- NOTE | 2017-06-22 15:19 | EKG12_ITS ---
Test Reason : SOB/CP Blood Pressure : / mmHG Vent. Rate : 074 BPM Atrial Rate : 074 BPM P-R Int : 158 ms QRS Dur : 080 ms QT Int : 412 ms P-R-T Axes : 009 023 046 degrees QTc Int : 457 ms Normal sinus rhythm Normal ECG Confirmed by GERA VARGAS ([id number]), commissioning editor ROLO RAJPUT ([id number] on 06/26/2017 1:40:28 PM Referred By: Petey Mcpherson Confirmed By:GERA VARGAS
--- NOTE | 2017-06-22 15:19 | RAD_ITS ---
STUDY: X-RAY CHEST REASON FOR EXAM: Female, 62 years old. Cough and shortness of breath. TECHNIQUE: PA and lateral views of the chest. COMPARISON: June 21, 2017. FINDINGS: Cardiac monitoring leads are present. The lungs are expanded. There is a apparent left basilar airspace consolidation possibly representing pneumonia. A similar appearance was present on the previous study. There is mild interstitial thickening present in both lungs. There is no demonstrated pleural abnormality. Normal size heart. There are calcified mediastinal and hilar lymph nodes. There is prominence of the pulmonary hilar arteries without peripheral pulmonary vascular congestion. There is atherosclerotic calcification of the aortic arch with tortuosity. There is demineralization of the osseous structures. Normal visualized ribs, clavicles, and shoulders. Patient has had previous surgery on the lumbar spine. There is no demonstrated abnormality of the visualized soft tissue structures of the upper abdomen. RAD/Chest PA and Lateral IMPRESSION: Increasing left-sided airspace consolidation possibly representing pneumonia. Electronically Signed: Dina Bhatia MD at 16:32 EDT , Service support ,
[2017-06-22] MEDS: 0.9% Normal Saline 1,000 ML 150 ML IV (15:24)
[2017-06-22] MEDS: Ipratropium/Albuterol Sulfate 3 ML AMPUL.NEB INHALATION (15:24)
[2017-06-22 15:28] VITALS: PULSE 77; RESP 15; O2SAT 92
[2017-06-22 16:11] LABS: Absolute Neutrophil Count 3.9 X10^3/uL (2.0-7.7); Basophil# 0.03 X10^3/uL; Basophil% 0.4 % (0-1); Eosinophil# 0.14 X10^3/uL; Eosinophils% 1.7 % (0-5); Hematocrit 37.8 % (37-47); Hemoglobin 11.9 g/dl (12.0-15.0); Lymphocyte % 41.9 % (19-41); Mean Corp Hgb Conc 31.5 g/gl (32-36); Mean Corpuscular Volume 85.7 fL (81-99); Mean Platelet Vol. 9.9 fl (6.2-12.0); Monocyte# 0.67 X10^3/uL; Monocyte% 8.3 % (0-10); Neutrophil # 3.85 X10^3/uL (2.7-7.7); Neutrophil % 47.5 % (47-70); POSITIVE COUNT NO; POSITIVE DIFFERENTIAL NO; POSITIVE MORPHOLOGY NO; Platelet Count 278 K/mm3 (150-450); RBC Distribution Width CV 15.3 % (11.6-14.6); RBC Distribution Width SD 48.6 fl (35.1-43.9); Red Blood Count 4.41 M/mm3 (4.2-5.4); White Blood Count 8.1 K/mm3 (4.4-11.0)
[2017-06-22 16:28] LABS: Anion Gap 7 (5-15); BUN 12 mg/dL (7-18); BUN/Creat Ratio 14.8 RATIO (10-20); Calcium,Total 8.4 mg/dL (8.5-10.1); Chloride 108 mmol/L (98-107); Creatinine, Serum 0.81 mg/dL (0.55-1.02); EST Glomerular Filtration Rate 76 mL/min (>60); Est Glom Filt Rate - Afr Amer 92 mL/min (>60); Estimated Creatinine Clearance 56.23 ml/min; Glucose 88 mg/dL (74-106); Potassium 3.8 mmol/L (3.5-5.1); Sodium Level 142 mmol/L (136-145)
[2017-06-22 17:00] VITALS: BP 165/69; PULSE 76; RESP 22; O2SAT 95
[2017-06-22 17:11] VITALS: O2SAT 95
--- NOTE | 2017-06-22 17:42 | ED.VISSUMM ---
- ER Visit Summary Date of Service: 06/22/17 Chief Complaint: Cough and chest pain History of Present Illness: The patient is a [address] Gates and Dr. Figueroa. She reports that she has had a nonproductive cough all winter. She denies any fever or chills. She reports that she has a sore throat from coughing. She complains of a chest pain that began 2 days ago. Said constant pain is increased with coughing. Is 8 out of 10 at worst and 4-10 currently. States is decreased with relaxing. She does report she has been wheezing has had mild shortness of breath. She is not using her steroid inhaler because a pharmacist told her not to use this with a dry cough. Physical Examination: Vitals: Stable. Afebrile. General: Well-nourished and well-developed. Head: Normocephalic atraumatic. HEENT: Posterior oropharyngeal erythema. No tonsillar exudate or swelling. Neck: Supple, no lymphadenopathy. No JVD. Nontender. Cardiovascular: Regular rate and rhythm. No murmurs. Respiratory: No respiratory distress. Clear to auscultation bilaterally. Tenderness to palpation over her sternum that does reproduce her pain. Abdominal: Soft, nontender, nondistended, normal bowel sounds. No guarding, rebound, or peritoneal signs. Back: Nontender. Extremities: Nontender, no edema. Skin: Normal color, no rash. Neurologic: Alert and oriented ?3. Cranial nerves II through XII are intact. Normal strength and sensation. Psych: Normal affect. Test Results: EKG is sinus at 74 with no acute changes. Troponin is negative despite 2 days of constant pain. Chem-7 is more for chloride 10 and calcium 8.4. CBC is marked for hemoglobin of 11.9 lymphocytes 42. Chest x-ray shows left-sided airspace consolidation possibly representing pneumonia. This was compared to a CTA of the chest that she had May 25 that showed groundglass opacities in left lower lobe and the right upper lobe and at that time question pulmonary contusion. Emergency Department Course and Treatment: Patient was treated albuterol Atrovent aerosols and is resting comfortably. Treatment Plan: The patient was discussed with Dr. Alcantar, on-call for Dr. Figueroa, who states with a nonproductive cough is been present for months and no white count he would not place her on antibiotics. I feel it is a very reasonable course of action. He did request the patient have a noncontrast CT of her chest 6-[address] weeks [address] her initial CT to ensure that these groundglass opacities have resolved. She will be discharged with instructions to continue her albuterol MDI and restart her steroid MDI. Follow-up with her primary care physician in 3-5 days if not improving. Follow-up Dr. Figueroa as needed. Return to the emergency department for any worsening symptoms. Disposition: To home in improved and stable condition. Impression: 1. Chronic cough. 2. Atypical chest pain. This note was generated with [employer] dictation software. It may contain incorrect words, spelling, and punctuation that were not noted in review of the chart prior to signing ED Disposition - Plan for ED Patient: Disposition: Home or Assisted Living Chief Complaint: Shortness of Breath Instructions: ED Cough Chronic Cause Unkn Referrals: Olivia Gates DO [Primary Care Provider] - 3-5 Days if not improving Az Figueroa MD [STAFF PHYSICIAN] - As Needed Additional Instructions: You need to get a repeat noncontrast CAT scan of your chest prior to your appointment to see Dr. Figueroa. This should be done 2-4 weeks from today.
[2017-06-22 18:03] VITALS: BP 163/81; PULSE 75; RESP 20; O2SAT 96
== END 2017-06-22 18:04 | disposition home or self-care (01) ==
LOC: ED 16:36
PROVIDERS: Emergency Provider Emergency Medicine; Family Provider Family Medicine; PCP Family Medicine
DX: R05 Cough (principal); R07.89 Other chest pain; J02.9 Acute pharyngitis, unspecified; R06.00 Dyspnea, unspecified; R11.0 Nausea; R51 Headache; J45.909 Unspecified asthma, uncomplicated; I10 Essential (primary) hypertension; M54.9 Dorsalgia, unspecified; G89.29 Other chronic pain; F32.9 Major depressive disorder, single episode, unspecified; F41.9 Anxiety disorder, unspecified; Z87.01 Personal history of pneumonia (recurrent); Z90.49 Acquired absence of other specified parts of digestive tract; Z90.710 Acquired absence of both cervix and uterus; Z79.899 Other long term (current) drug therapy
CPT/HCPCS: 71046; 80048; 84484; 85025; 87804; 93005; 94640; 96360; 96361; 99285; J7030

== ENCOUNTER → 2017-06-28 09:45 | Outpatient (CLI) | payer MEDICARE, SELFPAY ==
--- NOTE | 2017-06-28 09:48 | HPBI_ITS ---
MAMMOGRAPHY - BILATERAL SCREENING REASON FOR EXAM: Female, 62 years old. Routine annual screening examination. PERTINENT HISTORY: Non-contributory. TECHNIQUE: Digital bilateral breast mariluz (3D mammographic acquisition) in the CC and MLO projections. 2-D mediolateral oblique (MLO) and craniocaudad (CC) views of both breasts were obtained. CAD: Full Field Digital Mammography with Computer Added Detection was performed. COMPARISON: Comparison is made with prior examination dated June 18, 2014. FINDINGS: Breast Composition: The breasts are almost entirely fatty. There are no dominant masses or suspicious calcifications. No other significant abnormalities are identified. There has been no significant change since the prior study. HPBI/SCREENING MAMM (CAD), BILAT IMPRESSION: Stable bilateral screening mammogram. Yearly follow-up mammogram recommended. (A) ASSESSMENT CATEGORY: BIRADS Category 1: Negative. A letter regarding these results will be sent to the patient by the facility within 30 days. Approximately 10% of breast cancers are not detected by mammography. A normal mammogram should not delay biopsy of a clinically suspicious abnormality. [id number] Electronically Signed: Siddhartha Butterfield MD at 13:32 EDT Tel [phone], Service support ,
== END ==
PROVIDERS: Family Provider Family Medicine; PCP Family Medicine; Visit Provider Family Medicine
DX: Z12.31 Encounter for screening mammogram for malignant neoplasm of breast (principal)
CPT/HCPCS: 77063; 77067

== ENCOUNTER → 2017-07-13 13:36 | Outpatient (CLI) | payer MEDICARE, SELFPAY ==
--- NOTE | 2017-07-13 13:37 | CT_ITS ---
STUDY: CT CHEST WITHOUT CONTRAST REASON FOR EXAM: Female, 62 years old. Chronic cough. Chest pain. Shortness of breath. RADIATION DOSAGE (If Supplied By Facility): CTDIvol = ( 19.11 ) mGy, DLP = ( 682.96 ) mGycm TECHNIQUE: Transaxial imaging was performed without the administration of intravenous contrast material. Multiplanar coronal and sagittal images were reformatted. Individualized dose optimization techniques were used for this CT. COMPARISON: May 25, 2017. FINDINGS: There is interstitial septal and groundglass increased opacities of the lungs on the left more than the right, improved compared to May 25, 2017. There is no demonstrated pleural abnormality. Normal heart and pericardium. Normal mediastinum. Normal hilar regions. Normal unenhanced pulmonary arteries. There is atherosclerotic calcification of the aortic arch. There are multi-level degenerative changes of the thoracic spine. There is no demonstrated abnormality of the visualized upper abdomen. CT/Chest without Contrast IMPRESSION: Left greater than right interstitial and groundglass infiltrates or edema with improvement Electronically Signed: Robe Quinn MD at 14:18 EDT , Service support ,
== END ==
PROVIDERS: Family Provider Family Medicine; PCP Family Medicine; Visit Provider Family Medicine
DX: R05 Cough (principal); R91.8 Other nonspecific abnormal finding of lung field; R93.8 Abnormal findings on diagnostic imaging of other specified body structures
CPT/HCPCS: 71250

== ENCOUNTER → 2017-07-18 13:01 | Outpatient (CLI) | payer MEDICARE, SELFPAY ==
--- NOTE | 2017-07-18 13:05 | RAD_ITS ---
STUDY: X-RAY - CERVICAL SPINE REASON FOR EXAM: Female, 62 years old. Chronic neck pain TECHNIQUE: 3 view(s) of the cervical spine were obtained. COMPARISON: None FINDINGS: Normal anterior atlantoaxial articulation. Normal odontoid process. Normal cervical lordosis. Normal vertebral bodies and endplates. There is narrowing at C5-C6 and C6-C7 disc spaces. No fracture. . The soft tissue structures are unremarkable. RAD/Cerv Spine 2 or 3 Views IMPRESSION: Mild disc disease is at C5-C6 and C6-C7. No fracture. Electronically Signed: Adilson Ryder, at 3:46 EDT Tel , Service support ,
== END ==
PROVIDERS: Family Provider Family Medicine; PCP Family Medicine; Visit Provider Nurse Practitioner Family
DX: M54.2 Cervicalgia (principal)
CPT/HCPCS: 72040

== ENCOUNTER → 2017-07-25 16:17 | Outpatient (CLI) | payer MEDICARE, SELFPAY ==
--- NOTE | 2017-07-25 17:30 | MRI_ITS ---
STUDY: MRI LUMBAR SPINE WITH AND WITHOUT CONTRAST REASON FOR EXAM: Female, 62 years old. Post lami syndrome. Chronic back pain. 3 prior lumbar surgeries, most recent was at least 15 years ago TECHNIQUE: Standardized fat and water weighted pulse sequences were obtained in the sagittal and axial planes. 10 ml of Gadavist contrast material was administered for the contrast portion of the examination. COMPARISON: None FINDINGS: T12-L1: Normal endplates. Normal disc height, hydration and morphology. Normal bilateral facet joints. Normal central canal and bilateral lateral recesses. Normal bilateral intervertebral neural foramina. Normal lumbar lordosis. There is no substantial scoliosis. Normal conus medullaris that terminates at the L1 level. L1-2: Normal endplates. Normal disc height, hydration and morphology. Normal bilateral facet joints. Normal central canal and bilateral lateral recesses. Normal bilateral intervertebral neural foramina. L2-3: Normal endplates. Normal disc height, hydration and morphology. Normal bilateral facet joints. Normal central canal and bilateral lateral recesses. Normal bilateral intervertebral neural foramina. L3-4: Endplate spondylosis. Decreased disc height and small circumferential disc bulge. Degenerative changes of the bilateral facet joints. Mild narrowing of the central canal and bilateral intervertebral neural foramina. L4-5: Bilateral laminectomy and posterior fusion. Normal central canal and bilateral lateral recesses. Normal bilateral intervertebral neural foramina. L5-S1: Bilateral laminectomy and posterior fusion. Normal central canal and bilateral lateral recesses. Normal bilateral intervertebral neural foramina. Normal visualized sacral ala. There is a right renal cyst. MRI/Spine Lumbar W/WO Contrast IMPRESSION: There is a right renal cyst. Degenerative changes as L3-4. Electronically Signed: Sg Cline MD at 4:09 EDT Tel , Service support ,
[2017-07-25 17:38] LABS: BUN 19 mg/dL (7-18); Creatinine, Serum 1.11 mg/dL (0.55-1.02); EST Glomerular Filtration Rate 53 mL/min (>60); Est Glom Filt Rate - Afr Amer 64 mL/min (>60)
== END ==
PROVIDERS: Family Provider Family Medicine; PCP Family Medicine; Visit Provider Nurse Practitioner Family
DX: Z01.812 Encounter for preprocedural laboratory examination (principal); M96.1 Postlaminectomy syndrome, not elsewhere classified; M54.17 Radiculopathy, lumbosacral region; M47.817 Spondylosis without myelopathy or radiculopathy, lumbosacral region; M51.37 Other intervertebral disc degeneration, lumbosacral region; M48.07 Spinal stenosis, lumbosacral region; M46.96 Unspecified inflammatory spondylopathy, lumbar region
CPT/HCPCS: 36415; 72158; 82565; 84520; A9585

== ENCOUNTER 2017-08-25 14:25 | Observation (INO) | payer MEDICARE, SELFPAY ==
[2017-08-25] VITALS (10 sets, daily range): BP systolic 150–162; BP diastolic 61–77; PULSE 66–82; RESP 15–22; TEMP 36.4–36.9; O2SAT 93–96; BMI 42.0; BMI 40.4
--- NOTE | 2017-08-25 14:43 | EKG12_ITS ---
Test Reason : CP Blood Pressure : / mmHG Vent. Rate : 082 BPM Atrial Rate : 082 BPM P-R Int : 160 ms QRS Dur : 082 ms QT Int : 400 ms P-R-T Axes : 025 008 040 degrees QTc Int : 467 ms Normal sinus rhythm Normal ECG Confirmed by ELEUTERIO OZUNA, RASHARD ([id number]), commercial production editor ROLO RAJPUT ([id number]) on 08/29/2017 2:19:11 PM Referred By: DANIEL Confirmed By:RASHARD MCCLELLAN MD
--- NOTE | 2017-08-25 14:45 | RAD_ITS ---
STUDY: X-RAY CHEST REASON FOR EXAM: Female, 62 years old. Chest pain TECHNIQUE: Single AP portable view of the chest. COMPARISON: 06/22/2017 FINDINGS: There is slightly improved aeration of the left lung with residual slight hazy opacity. There is no demonstrated pleural abnormality. Normal size heart. Normal mediastinum and dave. Normal visualized pulmonary arteries. There is atherosclerotic calcification of the aortic arch with tortuosity. Normal visualized thoracic spine. There is a stable old right rib fracture. There is no demonstrated abnormality of the visualized soft tissue structures of the upper abdomen. RAD/Chest 1 View (Portable) IMPRESSION: There is slightly improved aeration of the left lung with residual slight hazy opacity. Electronically Signed: Beba Abad MD at 15:13 EDT , Service support ,
[2017-08-25] MEDS: 0.9% Normal Saline 1,000 ML 150 ML IV (15:09)
[2017-08-25] MEDS: Morphine 4 MG/ML Syringe IV (15:09)
[2017-08-25 15:15] LABS: Absolute Neutrophil Count 5.8 X10^3/uL (2.0-7.7); Basophil# 0.02 X10^3/uL; Basophil% 0.2 % (0-1); Eosinophil# 0.08 X10^3/uL; Eosinophils% 0.7 % (0-5); Hematocrit 38.9 % (37-47); Hemoglobin 12.4 g/dl (12.0-15.0); Lymphocyte % 37.9 % (19-41); Mean Corp Hgb Conc 31.9 g/gl (32-36); Mean Corpuscular Hgb 26.7 pg (27.0-32.0); Mean Corpuscular Volume 83.7 fL (81-99); Monocyte# 0.81 X10^3/uL; Monocyte% 7.5 % (0-10); Neutrophil # 5.78 X10^3/uL (2.7-7.7); Neutrophil % 53.4 % (47-70); Platelet Count 300 K/mm3 (150-450); RBC Distribution Width CV 14.7 % (11.6-14.6); RBC Distribution Width SD 44.8 fl (35.1-43.9); Red Blood Count 4.65 M/mm3 (4.2-5.4); White Blood Count 10.8 K/mm3 (4.4-11.0)
[2017-08-25 15:16] LABS: POSITIVE COUNT NO; POSITIVE DIFFERENTIAL NO; POSITIVE MORPHOLOGY NO
[2017-08-25 15:32] LABS: Anion Gap 6 (5-15); BUN 14 mg/dL (7-18); BUN/Creat Ratio 13.3 RATIO (10-20); Calcium,Total 8.6 mg/dL (8.5-10.1); Chloride 107 mmol/L (98-107); Creatinine, Serum 1.05 mg/dL (0.55-1.02); EST Glomerular Filtration Rate 56 mL/min (>60); Est Glom Filt Rate - Afr Amer 68 mL/min (>60); Estimated Creatinine Clearance 43.37 ml/min; Glucose 81 mg/dL (74-106); Potassium 3.3 mmol/L (3.5-5.1); Sodium Level 140 mmol/L (136-145)
--- NOTE | 2017-08-25 15:48 | ED.VISSUMM ---
- ER Visit Summary Date of Service: 08/25/17 Chief Complaint: Chest pain History of Present Illness: The patient is a [address] Figueroa and Dr. Gates. She reports that she has chest pain again 2 days ago. Is a continuous aching pain that is worsened by exertion. It is partially relieved by nitroglycerin on the way to the emergency department. It is associated with nausea without vomiting, diaphoresis, and shortness of breath. Physical Examination: Vitals: Stable. Afebrile. General: Well-nourished and well-developed. Head: Normocephalic atraumatic. Neck: Supple, no lymphadenopathy. No JVD. Nontender. Cardiovascular: Regular rate and rhythm. No murmurs. Respiratory: No respiratory distress. Clear to auscultation bilaterally. Abdominal: Soft, nontender, nondistended, normal bowel sounds. No guarding, rebound, or peritoneal signs. Back: Nontender. Extremities: Nontender, no edema. Skin: Normal color, no rash. Neurologic: Alert and oriented ?3. Cranial nerves II through XII are intact. Normal strength and sensation. Psych: Normal affect. Test Results: Chest x-ray shows improved aeration left lung with slight residual opacity. EKG is sinus at 80 with no acute changes. Troponin is negative. Chem-7 is marked potassium 3.3 and creatinine 1.05. CBC is normal. Emergency Department Course and Treatment: Patient was treated with aspirin p.o. and dose of morphine IV and is resting comfortably. Treatment Plan: Patient has not had a stress test since 2013. I feel she warrants admission to the hospital for further evaluation and treatment. She was discussed with Dr. Mcpherson. Disposition: Admitted in stable condition. Impression: 1. Atypical chest pain. 2. KAMINI score of 1. This note was generated with [employer] dictation software. It may contain incorrect words, spelling, and punctuation that were not noted in review of the chart prior to signing ED Disposition - Plan for ED Patient: Chief Complaint: Chest Pain Referrals: Olivia Gates DO [Primary Care Provider] -
--- NOTE | 2017-08-25 16:24 | PCM.HP.STD ---
Problem List (1) Flu-like symptoms Status: Acute (2) Atypical chest pain Status: Acute (3) Bronchitis Status: Chronic (4) Asthma Status: Chronic (5) RAJNI (obstructive sleep apnea) Status: Chronic (6) History of cholecystectomy Status: Resolved (7) History of hysterectomy Status: Resolved (8) History of back surgery Status: Resolved (9) History of hernia repair Status: Resolved (10) GERD (gastroesophageal reflux disease) Status: Chronic (11) Depression Status: Chronic (12) Anxiety Status: Chronic (13) Hypothyroidism Status: Chronic (14) HTN (hypertension) Status: Chronic (15) Chronic back pain Status: Chronic History of Present Illness Date of Admission: 08/25/17 Chief Complaint: Flulike symptoms and chest pain The patient is a 62 year old F with multiple comorbidities including asthma came to ER with chest pain for last 2 days. She told me that she is having flulike symptoms including cough, sinus congestion, nausea and diarrhea for about 8- 9 days along with abdominal cramps. Her diarrhea and abdominal cramping is getting better now having semisolid stool with 1-2 infrequency. She also had mild dark blood in the stool last 5 days. She describes her chest pain as continuous aching pain mainly in epigastric/xiphisternum location, localized without radiation, worsens with exertion. She denies associated shortness of breath, diaphoresis, palpitation, near syncope or syncope. ED, her workup was by and large negative. EMS EKG shows normal sinus rhythm with occasional PVCs. In ED, EKG shows normal sinus rhythm at 82 bpm. She was last admitted in May 2017 for intractable left-sided rib pain secondary to mechanical fall with pulmonary contusion and associated hypoxic respiratory failure which got resolved. There was no refracture/pneumothorax. [] Past Medical History Past Medical History (Chronic Problems): Chronic Problems (Last Updated 07/26/17 @ 08:13 by Vannessa Coughlin) Bronchitis (Chronic) Asthma (Chronic) RAJNI (obstructive sleep apnea) (Chronic) GERD (gastroesophageal reflux disease) (Chronic) Depression (Chronic) Anxiety (Chronic) Hypothyroidism (Chronic) HTN (hypertension) (Chronic) Chronic back pain (Chronic) Allergies lisinopril Adverse Reaction (Verified 08/25/17 14:27) Other Home Medications: Ambulatory Orders Medication Instructions Recorded Paroxetine HCl [Paxil] 60 mg PO DAILY 01/29/13 Pregabalin [Lyrica] 75 mg PO BID 01/29/13 traZODone [Desyrel] 100 mg PO QHS 01/29/13 Esomeprazole Mag Trihydrate 40 mg PO QHS 05/16/14 [Nexium] Losartan Potassium [Cozaar] 50 mg PO DAILY 05/16/14 Levothyroxine [Synthroid] 50 mcg PO DAILY 10/03/14 Lorazepam [Ativan] 2 mg PO BID 10/11/16 Mometasone Furoate [Nasonex] 2 spray NASAL QHS 10/11/16 Cholecalciferol (Vitamin D3) 50,000 units PO KEITA 05/20/17 [Vitamin D3] Albuterol Inhaler [Ventolin Hfa] 1 - 2 puff INHALATION Q6H PRN PRN 05/23/17 #1 inhaler Hydrocodone/Acetaminophen [[place] 1 each PO TID PRN 06/22/17 5-325 Tablet] Surgical History: cholecystectomy, herniorrhaphy, hysterectomy, - Psychiatric History: Anxiety, Depression TRAINING SPECIALIST History: No pertinent TRAINING SPECIALIST history Smoking Status: Never smoker - *Family History Maternal History Items: No pertinent history Paternal History Items: No pertinent history Review of Systems Constitutional: Reports: Malaise, Weakness, Fatigue. Denies: Chills, Fever, Weight Change HEENT: Reports: Sinus Congestion, Sinus Drainage. Denies: Head Aches Cardiovascular: Reports: Chest Pain. Denies: Palpitations Respiratory: Reports: Shortness of breath upon exertion. Denies: Shortness of breath at rest, Sputum production Gastrointestinal: Denies: Abdominal Pain, Nausea, Vomiting Genitourinary: Denies: Dysuria Musculoskeletal: Reports: Joint Pain. Denies: Joint Tenderness Skin: Denies: Rash, Wounds Neurological: Denies: Numbness, Tingling, Focal weakness Psychiatric: Reports: Anxiety, Depression. Denies: Homicidal Ideations, Suicidal Ideations Hematologic/ Lymphatic: Denies: Easy Bruising, Easy Bleeding VTE Information - Inpt Only VTE Present on Admission: No VTE Mechan Device Prophylaxis: SCD's VTE Pharm Prophylaxis ordered?: Yes Patient Problems: Active and Suspected Problems (Last Updated 07/26/17 @ 08:13 by Vannessa Coughlin) Flu-like symptoms (Acute) Atypical chest pain (Acute) - Physical Exam General: Alert, Oriented x3, Cooperative HEENT: Atraumatic, PERRLA, EOMI, Normocephalic Oral: Dry Mucosa Neck: Supple, No JVD, Negative Carotid Bruits Lungs: Clear to auscultation, No rhonchi, No wheeze, No rales, Diminished - Left lung base laterally, - - Mild deep tenderness over left lower rib anteriorly. Cardiovascular: Regular rate, Normal S1, Normal S2, No murmurs Abdomen: Bowel Sounds Present, Soft, Non Tender, Non-Distended Extremities: No edema, Capillary Refill Less than 3 Seconds Skin: No rashes, No breakdown Musculoskeletal: No Tenderness to Palpation of Joints or Extremities, Arthritic Changes Neurological: Cranial nerves II-XII grossly intact Psych/Mental Status: Normal Affect, Appropriate Vital Signs Temp Pulse Resp BP Pulse Ox 98.5 F 77 22 H 162/76 H 96 08/25/17 14:28 08/25/17 15:57 08/25/17 15:57 08/25/17 15:57 08/25/17 15:01 Oxygen Delivery Method Room Air Weight: 229 lb 8.019 oz Body Mass Index (BMI) 42.0 Laboratory Tests Past 24 Hrs 08/25/17 08/25/17 15:05 15:05 WBC 10.8 RBC 4.65 Hgb 12.4 Hct 38.9 MCV 83.7 MCH 26.7 L MCHC 31.9 L RDW 14.7 H RDW Differential 44.8 H Plt Count 300 MPV 9.0 Immature Gran % (Auto) 0.300 Neut % (Auto) 53.4 Lymph % (Auto) 37.9 Kane % (Auto) 7.5 Eos % (Auto) 0.7 Baso % (Auto) 0.2 Absolute Neuts (auto) 5.8 Absolute Lymphs (auto) 4.10 Total Counted Not Reportable Sodium 140 Potassium 3.3 L Chloride 107 Carbon Dioxide 27.0 Anion Gap 6 BUN 14 Creatinine 1.05 H Estim Creat Clear Calc 43.37 Est GFR (MDRD) Af Amer 68 Est GFR (MDRD) Non-Af 56 L BUN/Creatinine Ratio 13.3 Glucose 81 Calcium 8.6 Troponin I < 0.015 Assessment/Plan Active and Suspected Problems (Last Updated 07/26/17 @ 08:13 by Vannessa Coughlin) Flu-like symptoms (Acute) Atypical chest pain (Acute) The patient is a 62 year old F with multiple comorbidities including asthma came to ER with chest pain for last 2 days. She told me that she is having flulike symptoms including cough, sinus congestion, nausea and diarrhea for about 8- 9 days along with abdominal cramps. Her diarrhea and abdominal cramping is getting better now having semisolid stool with 1-2 infrequency. She also had mild dark blood in the stool last 5 days. She describes her chest pain as continuous aching pain mainly in epigastric/xiphisternum location, localized without radiation, worsens with exertion. She denies associated shortness of breath, diaphoresis, palpitation, near syncope or syncope. ED, her workup was by and large negative. EMS EKG shows normal sinus rhythm with occasional PVCs. In ED, EKG shows normal sinus rhythm at 82 bpm. She was last admitted in May 2017 for intractable left-sided rib pain secondary to mechanical fall with pulmonary contusion and associated hypoxic respiratory failure which got resolved. There was no refracture/pneumothorax. 1. Atypical chest pain most probably GERD with suspicion of acute coronary syndrome: She had cardiac cath 08/2011 did not require any stent. She had pharmacological myocardial perfusion stress test in September 2013 which reported as normal with EF 61%. She had an echo in May 2017 showed normal LV size and systolic function with EF 70%. No evidence of diastolic dysfunction. Left atrium mildly enlarged. Normal right atrium. Normal RV size with systolic function. Normal tricuspid valve with mild TR, RVSP 30 mmHg. Normal aortic valve. The patient is being admitted in PCU. On serial cardiac enzymes. Pharmacological stress test tomorrow morning. On ACS protocol. On IV Protonix. 2. Flulike symptoms with URI and possible viral gastroenteritis: IV fluid normal saline at 100 mL/h. Respiratory panel ordered. No abdominal tenderness. 3. Other chronic comorbidities include history of mechanical fall with left-sided rib pain, GERD, anxiety, depression, hypothyroidism, hypertension and chronic back pain: Home medication reconciliation done. This note was generated with [employer] software. Every effort was made to ensure accuracy, however computerized template checker mistakes may persist. Code Visit OBSV E&M: 50387 Initial observation care L3
--- NOTE | 2017-08-25 16:34 | HP.PCM_ITS ---
Problem List (1) Flu-like symptoms Status: Acute (2) Atypical chest pain Status: Acute (3) Bronchitis Status: Chronic (4) Asthma Status: Chronic (5) RAJNI (obstructive sleep apnea) Status: Chronic (6) History of cholecystectomy Status: Resolved (7) History of hysterectomy Status: Resolved (8) History of back surgery Status: Resolved (9) History of hernia repair Status: Resolved (10) GERD (gastroesophageal reflux disease) Status: Chronic (11) Depression Status: Chronic (12) Anxiety Status: Chronic (13) Hypothyroidism Status: Chronic (14) HTN (hypertension) Status: Chronic (15) Chronic back pain Status: Chronic History of Present Illness Date of Admission: 08/25/17 Chief Complaint: Flulike symptoms and chest pain The patient is a 62 year old F with multiple comorbidities including asthma came to ER with chest pain for last 2 days. She told me that she is having flulike symptoms including cough, sinus congestion, nausea and diarrhea for about 8- 9 days along with abdominal cramps. Her diarrhea and abdominal cramping is getting better now having semisolid stool with 1-2 infrequency. She also had mild dark blood in the stool last 5 days. She describes her chest pain as continuous aching pain mainly in epigastric/ xiphisternum location, localized without radiation, worsens with exertion. She denies associated shortness of breath, diaphoresis, palpitation, near syncope or syncope. ED, her workup was by and large negative. EMS EKG shows normal sinus rhythm with occasional PVCs. In ED, EKG shows normal sinus rhythm at 82 bpm. She was last admitted in May 2017 for intractable left-sided rib pain secondary to mechanical fall with pulmonary contusion and associated hypoxic respiratory failure which got resolved. There was no refracture/pneumothorax. [] Past Medical History Past Medical History (Chronic Problems): Chronic Problems (Last Updated 07/26/17 @ 08:13 by Vannessa Coughlin) Bronchitis (Chronic) Asthma (Chronic) RAJNI (obstructive sleep apnea) (Chronic) GERD (gastroesophageal reflux disease) (Chronic) Depression (Chronic) Anxiety (Chronic) Hypothyroidism (Chronic) HTN (hypertension) (Chronic) Chronic back pain (Chronic) Allergies lisinopril Adverse Reaction (Verified 08/25/17 14:27) Other Home Medications: Ambulatory Orders Medication Instructions Recorded Paroxetine HCl [Paxil] 60 mg PO DAILY 01/29/13 Pregabalin [Lyrica] 75 mg PO BID 01/29/13 traZODone [Desyrel] 100 mg PO QHS 01/29/13 Esomeprazole Mag Trihydrate 40 mg PO QHS 05/16/14 [Nexium] Losartan Potassium [Cozaar] 50 mg PO DAILY 05/16/14 Levothyroxine [Synthroid] 50 mcg PO DAILY 10/03/14 Lorazepam [Ativan] 2 mg PO BID 10/11/16 Mometasone Furoate [Nasonex] 2 spray NASAL QHS 10/11/16 Cholecalciferol (Vitamin D3) 50,000 units PO KEITA 05/20/17 [Vitamin D3] Albuterol Inhaler [Ventolin Hfa] 1 - 2 puff INHALATION Q6H PRN PRN 05/23/17 #1 inhaler Hydrocodone/Acetaminophen [[place] 1 each PO TID PRN 06/22/17 5-325 Tablet] Surgical History: cholecystectomy, herniorrhaphy, hysterectomy, - Psychiatric History: Anxiety, Depression STAFF PHYSICIAN History: No pertinent STAFF PHYSICIAN history Smoking Status: Never smoker - *Family History Maternal History Items: No pertinent history Paternal History Items: No pertinent history Review of Systems Constitutional: Reports: Malaise, Weakness, Fatigue. Denies: Chills, Fever, Weight Change HEENT: Reports: Sinus Congestion, Sinus Drainage. Denies: Head Aches Cardiovascular: Reports: Chest Pain. Denies: Palpitations Respiratory: Reports: Shortness of breath upon exertion. Denies: Shortness of breath at rest, Sputum production Gastrointestinal: Denies: Abdominal Pain, Nausea, Vomiting Genitourinary: Denies: Dysuria Musculoskeletal: Reports: Joint Pain. Denies: Joint Tenderness Skin: Denies: Rash, Wounds Neurological: Denies: Numbness, Tingling, Focal weakness Psychiatric: Reports: Anxiety, Depression. Denies: Homicidal Ideations, Suicidal Ideations Hematologic/ Lymphatic: Denies: Easy Bruising, Easy Bleeding VTE Information - Inpt Only VTE Present on Admission: No VTE Mechan Device Prophylaxis: SCD's VTE Pharm Prophylaxis ordered?: Yes Patient Problems: Active and Suspected Problems (Last Updated 07/26/17 @ 08:13 by Vannessa Coughlin ) Flu-like symptoms (Acute) Atypical chest pain (Acute) - Physical Exam General: Alert, Oriented x3, Cooperative HEENT: Atraumatic, PERRLA, EOMI, Normocephalic Oral: Dry Mucosa Neck: Supple, No JVD, Negative Carotid Bruits Lungs: Clear to auscultation, No rhonchi, No wheeze, No rales, Diminished - Left lung base laterally, - - Mild deep tenderness over left lower rib anteriorly. Cardiovascular: Regular rate, Normal S1, Normal S2, No murmurs Abdomen: Bowel Sounds Present, Soft, Non Tender, Non-Distended Extremities: No edema, Capillary Refill Less than 3 Seconds Skin: No rashes, No breakdown Musculoskeletal: No Tenderness to Palpation of Joints or Extremities, Arthritic Changes Neurological: Cranial nerves II-XII grossly intact Psych/Mental Status: Normal Affect, Appropriate Vital Signs Temp Pulse Resp BP Pulse Ox 98.5 F 77 22 H 162/76 H 96 08/25/17 14:28 08/25/17 15:57 08/25/17 15:57 08/25/17 15:57 08/25/17 15:01 Oxygen Delivery Method Room Air Weight: 229 lb 8.019 oz Body Mass Index (BMI) 42.0 Laboratory Tests Past 24 Hrs 08/25/17 08/25/17 15:05 15:05 WBC 10.8 RBC 4.65 Hgb 12.4 Hct 38.9 MCV 83.7 MCH 26.7 L MCHC 31.9 L RDW 14.7 H RDW Differential 44.8 H Plt Count 300 MPV 9.0 Immature Gran % (Auto) 0.300 Neut % (Auto) 53.4 Lymph % (Auto) 37.9 [place] % (Auto) 7.5 Eos % (Auto) 0.7 Baso % (Auto) 0.2 Absolute Neuts (auto) 5.8 Absolute Lymphs (auto) 4.10 Total Counted Not Reportable Sodium 140 Potassium 3.3 L Chloride 107 Carbon Dioxide 27.0 Anion Gap 6 BUN 14 Creatinine 1.05 H Estim Creat Clear Calc 43.37 Est GFR (MDRD) Af Amer 68 Est GFR (MDRD) Non-Af 56 L BUN/Creatinine Ratio 13.3 Glucose 81 Calcium 8.6 Troponin I < 0.015 Assessment/Plan Active and Suspected Problems (Last Updated 07/26/17 @ 08:13 by Vannessa Coughlin ) Flu-like symptoms (Acute) Atypical chest pain (Acute) The patient is a 62 year old F with multiple comorbidities including asthma came to ER with chest pain for last 2 days. She told me that she is having flulike symptoms including cough, sinus congestion, nausea and diarrhea for about 8- 9 days along with abdominal cramps. Her diarrhea and abdominal cramping is getting better now having semisolid stool with 1-2 infrequency. She also had mild dark blood in the stool last 5 days. She describes her chest pain as continuous aching pain mainly in epigastric/ xiphisternum location, localized without radiation, worsens with exertion. She denies associated shortness of breath, diaphoresis, palpitation, near syncope or syncope. ED, her workup was by and large negative. EMS EKG shows normal sinus rhythm with occasional PVCs. In ED, EKG shows normal sinus rhythm at 82 bpm. She was last admitted in May 2017 for intractable left-sided rib pain secondary to mechanical fall with pulmonary contusion and associated hypoxic respiratory failure which got resolved. There was no refracture/pneumothorax. 1. Atypical chest pain most probably GERD with suspicion of acute coronary syndrome: She had cardiac cath 08/2011 did not require any stent. She had pharmacological myocardial perfusion stress test in September 2013 which reported as normal with EF 61%. She had an echo in May 2017 showed normal LV size and systolic function with EF 70%. No evidence of diastolic dysfunction. Left atrium mildly enlarged. Normal right atrium. Normal RV size with systolic function. Normal tricuspid valve with mild TR, RVSP 30 mmHg. Normal aortic valve. The patient is being admitted in PCU. On serial cardiac enzymes. Pharmacological stress test tomorrow morning. On ACS protocol. On IV Protonix. 2. Flulike symptoms with URI and possible viral gastroenteritis: IV fluid normal saline at 100 mL/h. Respiratory panel ordered. No abdominal tenderness. 3. Other chronic comorbidities include history of mechanical fall with left- sided rib pain, GERD, anxiety, depression, hypothyroidism, hypertension and chronic back pain: Home medication reconciliation done. This note was generated with [employer] software. Every effort was made to ensure accuracy, however computerized hydraulic press operator mistakes may persist. Code Visit OBSV E&M: 47178 Initial observation care L3
--- NOTE | 2017-08-25 16:59 | EKG12_ITS ---
Test Reason : AM EKG Blood Pressure : / mmHG Vent. Rate : 056 BPM Atrial Rate : 056 BPM P-R Int : 192 ms QRS Dur : 082 ms QT Int : 500 ms P-R-T Axes : 022 038 044 degrees QTc Int : 482 ms Sinus bradycardia Otherwise normal ECG When compared with ECG of 25-AUG-2017 17:12, MANUAL COMPARISON REQUIRED, DATA IS UNCONFIRMED Confirmed by CHING OZUNA, KRISTEN ([id number]), writer editor ROLO RAJPUT ([id number]) on 08/29/2017 3:23:58 PM Referred By: TAHMINA Confirmed By:KRISTEN FLOWER MD
[2017-08-25] MEDS: 0.9% Normal Saline 1,000 ML 100 ML IV (18:06)
[2017-08-25] MEDS: 0.9% NaCl Peripheral Flush Adult/Peds IV (18:08)
[2017-08-25] MEDS: HYDROcodone Bitartrate/Apap 5/325 Tablet PO (22:07)
[2017-08-25] MEDS: traZODone 100 MG Tablet PO (22:25)
[2017-08-25] MEDS: Fluticasone 0.05% 1 SPRAY NASAL.SRY 2 SPRAY NASAL (22:25)
[2017-08-25] MEDS: LORazepam 1 MG Tablet 2 MG PO (22:25)
[2017-08-25] MEDS: Pregabalin 75 MG Capsule PO (22:25)
[2017-08-26] VITALS (7 sets, daily range): BP systolic 123–143; BP diastolic 58–73; PULSE 59–71; RESP 12–18; TEMP 36.4–36.6; O2SAT 92–96
[2017-08-26] MEDS: 0.9% Normal Saline 1,000 ML 100 ML IV (05:40)
--- NOTE | 2017-08-26 05:55 | EKG12_ITS ---
Test Reason : Blood Pressure : / mmHG Vent. Rate : 072 BPM Atrial Rate : 072 BPM P-R Int : 166 ms QRS Dur : 086 ms QT Int : 448 ms P-R-T Axes : 037 031 035 degrees QTc Int : 490 ms Normal sinus rhythm Prolonged QT Abnormal ECG When compared with ECG of 22-JUN-2017 14:50, No significant change was found Confirmed by CHING OZUNA, KRISTEN ([id number]), design editor ROLO RAJPUT ([id number]) on 08/29/2017 3:36:00 PM Referred By: RAMBO Confirmed By:KRISTEN FLOWER MD
[2017-08-26] MEDS: Losartan Potassium 50 MG Tablet PO (06:20)
[2017-08-26] MEDS: Levothyroxine 50 MCG Tablet PO (06:20)
[2017-08-26] MEDS: Aspirin E.C. 81 MG Tablet PO (06:20)
[2017-08-26 07:09] LABS: Absolute Lymphocyte Count 3.37 X10^3/ul (0.83-4.51); Absolute Neutrophil Count 2.9 X10^3/uL (2.0-7.7); Basophil# 0.03 X10^3/uL; Basophil% 0.4 % (0-1); Eosinophil# 0.15 X10^3/uL; Eosinophils% 2.1 % (0-5); Hematocrit 35.7 % (37-47); Hemoglobin 11.2 g/dl (12.0-15.0); Lymphocyte # 3.37 X10^3/ul (4.0); Lymphocyte % 46.8 % (19-41); Mean Corp Hgb Conc 31.4 g/gl (32-36); Mean Corpuscular Hgb 26.9 pg (27.0-32.0); Mean Corpuscular Volume 85.6 fL (81-99); Mean Platelet Vol. 9.4 fl (6.2-12.0); Monocyte% 9.7 % (0-10); Neutrophil # 2.92 X10^3/uL (2.7-7.7); Neutrophil % 40.6 % (47-70); Platelet Count 298 K/mm3 (150-450); RBC Distribution Width CV 14.8 % (11.6-14.6); RBC Distribution Width SD 45.3 fl (35.1-43.9); Red Blood Count 4.17 M/mm3 (4.2-5.4); White Blood Count 7.2 K/mm3 (4.4-11.0)
[2017-08-26 07:11] LABS: POSITIVE COUNT NO; POSITIVE DIFFERENTIAL NO; POSITIVE MORPHOLOGY NO; Prothrombin Time (Protime)PT. 13.6 SECONDS (11.7-14.9)
[2017-08-26 07:12] LABS: Partial Thromboplast Time 33.8 Seconds (24.1-36.2)
[2017-08-26 07:30] LABS: Anion Gap 4 (5-15); BUN 11 mg/dL (7-18); BUN/Creat Ratio 13.7 RATIO (10-20); Chloride 113 mmol/L (98-107); Cholesterol 158 mg/dL (200); EST Glomerular Filtration Rate 77 mL/min (>60); Est Glom Filt Rate - Afr Amer 93 mL/min (>60); Estimated Creatinine Clearance 56.93 ml/min; Glucose 84 mg/dL (74-106); High Density Lipoprotein 45 mg/dL; Magnesium 1.9 mg/dL (1.6-2.6); Potassium 3.7 mmol/L (3.5-5.1); Sodium Level 144 mmol/L (136-145); T4 Free Direct 1.14 ng/dL (0.76-1.46); Thyroid Stim Hormone (TSH) 2.75 uIU/mL (0.358-3.74); Triglycerides 115 mg/dL; Very Low Density Lipoprotein 23 mg/dL (5-40)
[2017-08-26] MEDS: LORazepam 1 MG Tablet 2 MG PO (10:02)
[2017-08-26] MEDS: 0.9% NaCl Peripheral Flush Adult/Peds IV (10:04)
[2017-08-26] MEDS: Pregabalin 75 MG Capsule PO (10:04)
[2017-08-26] MEDS: Pantoprazole Sodium 40 MG Tablet PO (10:04)
--- NOTE | 2017-08-26 11:08 | STRESSREP_ITS ---
Stress Test Report Date: 08/26/2017 Procedure: Pharmacologic stress nuclear imaging study Indications: Chest pain Consent: Per the patient Procedure: The patient underwent pharmacologic (Regadenoson) evaluation with a peak heart rate of 77 beats per minute (49 predicted maximal heart rate) and a peak blood pressure of 136/74 mmHg. The baseline ECG demonstrated normal sinus rhythm. The peak pharmacologic ECG demonstrated no obvious ECG changes. There were no cardiac dysrhythmias pretest, during pharmacologic infusion, or recovery. There was no complaint of chest discomfort during pharmacologic infusion or recovery. The examination was discontinued secondary to completion of protocol. Impression: 1. Pharmacologic (Regadenoson) evaluation 2. Peak pharmacologic ECG with no obvious ECG changes. 3. There were no cardiac dysrhythmias pretest, during pharmacologic infusion, or recovery 4. Nuclear images pending Myocardial perfusion imaging study: Technique: The patient was injected with 13.9 millicuries of technetium 99m Cardiolite and subsequently rest SPECT Cardiolite nuclear imaging was obtained in the horizontal long, vertical long, and short axis views. The patient underwent pharmacologic (Regadenoson) evaluation with a peak heart rate of 77 beats per minute (49 % percent predicted maximal heart rate) and a peak blood pressure of 136/74 mmHg. The patient was injected with 42 millicuries of technetium 99m Cardiolite and subsequently stress SPECT Cardiolite nuclear imaging was obtained in the horizontal long, vertical long, and short axis views. A gated Cardiolite study at peak stress was obtained. Interpretation: Rest and stress SPECT Cardiolite nuclear imaging status post realignment, normalization, and attenuation correction demonstrate uniform tracer uptake and myocardial perfusion appearing within normal limits. There is end systolic thickening and brightening. The gated Cardiolite study demonstrates myocardial thickening and inward wall motion. The reported LVEF is 67 %. Impression: 1. Rest and stress SPECT Cardiolite nuclear imaging demonstrate relative uniform tracer uptake and myocardial perfusion appearing within normal limits. 2. The gated Cardiolite study reports an LVEF of 67 %. This note was generated with [employer] software. It may contain incorrect words, spelling, and punctuation that were not noted in checking the note before signing.
--- NOTE | 2017-08-26 11:15 | PCM.DC ---
- Discharge Diagnoses Current Active Problems: Current Active and Chronic Problems (Last Updated 07/26/17 @ 08:13 by Vannessa Coughlin) Flu-like symptoms (Acute) Atypical chest pain (Acute) You will use the following diet at home:: Cardiac Allergies/Adverse Reactions: Allergies lisinopril Adverse Reaction (Verified 08/25/17 14:27) Other Medications to take at Discharge Paroxetine HCl [Paxil] 60 mg PO DAILY 01/29/13 Pregabalin [Lyrica] 75 mg PO BID 01/29/13 traZODone [Desyrel] 100 mg PO QHS 01/29/13 Esomeprazole Mag Trihydrate [Nexium] 40 mg PO BID 05/16/14 Losartan Potassium [Cozaar] 50 mg PO DAILY 05/16/14 Levothyroxine [Synthroid] 50 mcg PO DAILY 10/03/14 Lorazepam [Ativan] 2 mg PO BID 10/11/16 Mometasone Furoate [Nasonex] 2 spray NASAL QHS 10/11/16 Cholecalciferol (Vitamin D3) [Vitamin D3] 50,000 units PO KEITA 05/20/17 Albuterol Inhaler [Ventolin Hfa] 1 - 2 puff INHALATION Q6H PRN PRN #1 inhaler 05/23/17 Hydrocodone/Acetaminophen [[place] 5-325 Tablet] 1 each PO TID PRN 06/22/17 Primary Care Physician: Olivia Gates DO [Primary Care Provider] - Please follow up with your Primary Care Physician in: in 2 weeks
--- NOTE | 2017-08-26 11:16 | PCM.DC.SUM ---
Discharge Date and Diagnosis Date of Admission: 08/25/17 Date of Discharge: 08/26/17 - Primary Discharge Diagnosis Active and Suspected Problems (Last Updated 07/26/17 @ 08:13 by Vannessa Coughlin) Atypical chest pain most probably GERD; acute coronary syndrome ruled out: Subacute flulike symptoms: Almost resolved Hypokalemia: Potassium replaced and corrected. - Secondary Discharge Diagnosis Chronic Problems (Last Updated 07/26/17 @ 08:13 by Vannessa Coughlin) Bronchitis (Chronic) Asthma (Chronic) RAJNI (obstructive sleep apnea) (Chronic) GERD (gastroesophageal reflux disease) (Chronic) Depression (Chronic) Anxiety (Chronic) Hypothyroidism (Chronic) HTN (hypertension) (Chronic) Chronic back pain (Chronic) Hospital Course and Treatment Imaging Results: 08/26/17 05:55 Nuclear Stress Test - Chemical [NM] AM (NON MEDS) Operations: None Summary of Care Provided: [] The patient is a 62 year old F with multiple comorbidities including asthma came to ER with chest pain for last 2 days. She told me that she is having flulike symptoms including cough, sinus congestion, nausea and diarrhea for about 8- 9 days along with abdominal cramps. Her diarrhea and abdominal cramping is getting better now having semisolid stool with 1-2 infrequency. She also had mild dark blood in the stool last 5 days. She describes her chest pain as continuous aching pain mainly in epigastric/xiphisternum location, localized without radiation, worsens with exertion. She denies associated shortness of breath, diaphoresis, palpitation, near syncope or syncope. ED, her workup was by and large negative. EMS EKG shows normal sinus rhythm with occasional PVCs. In ED, EKG shows normal sinus rhythm at 82 bpm. She was last admitted in May 2017 for intractable left-sided rib pain secondary to mechanical fall with pulmonary contusion and associated hypoxic respiratory failure which got resolved. There was no refracture/pneumothorax. 1. Atypical chest pain most probably GERD; acute coronary syndrome ruled out: She had cardiac cath 08/2011 did not require any stent. She had pharmacological myocardial perfusion stress test in September 2013 which reported as normal with EF 61%. She had an echo in May 2017 showed normal LV size and systolic function with EF 70%. No evidence of diastolic dysfunction. Left atrium mildly enlarged. Normal right atrium. Normal RV size with systolic function. Normal tricuspid valve with mild TR, RVSP 30 mmHg. Normal aortic valve. The patient was being admitted in PCU. We will troponin enzymes are negative. Pharmacological nuclear stress test was done and reported as negative. Nuclear imaging shows uniform tracer uptake and myocardial perfusion appearing within normal limit. EF 67% 2. GERD: The patient is on Nexium. Patient was advised Nexium twice daily for 1 week and then once daily. Flulike symptoms with URI and possible viral gastroenteritis: IV fluid normal saline at 100 mL/h.No abdominal tenderness. Almost resolved 3. Other chronic comorbidities include history of mechanical fall with left-sided rib pain, GERD, anxiety, depression, hypothyroidism, hypertension and chronic back pain: Home medication reconciliation done. Started medication reconciliation done. Discharge follow-up instructions completed. This note was generated with [employer] dictation software. Every effort was made to ensure accuracy, however computerized retail assistant manager mistakes may persist. Home Medications: Medications to take at Discharge Paroxetine HCl [Paxil] 60 mg PO DAILY 01/29/13 Pregabalin [Lyrica] 75 mg PO BID 01/29/13 traZODone [Desyrel] 100 mg PO QHS 01/29/13 Esomeprazole Mag Trihydrate [Nexium] 40 mg PO BID 05/16/14 Losartan Potassium [Cozaar] 50 mg PO DAILY 05/16/14 Levothyroxine [Synthroid] 50 mcg PO DAILY 10/03/14 Lorazepam [Ativan] 2 mg PO BID 10/11/16 Mometasone Furoate [Nasonex] 2 spray NASAL QHS 10/11/16 Cholecalciferol (Vitamin D3) [Vitamin D3] 50,000 units PO KEITA 05/20/17 Albuterol Inhaler [Ventolin Hfa] 1 - 2 puff INHALATION Q6H PRN PRN #1 inhaler 05/23/17 Hydrocodone/Acetaminophen [[place] 5-325 Tablet] 1 each PO TID PRN 06/22/17 Primary Care Physician: Olivia Gates DO [Primary Care Provider] - Please follow up with your Primary Care Physician in: in 2 weeks Medical Necessity - Tobacco Use Smoking Status: Former smoker Tobacco Use: Cigarettes Meaningful Use Info Meaningful Use Diagnoses (Choose all that apply): None applicable Code Visit OBSV E&M: 60862 Observation care discharge
[2017-08-26] MEDS: HYDROcodone Bitartrate/Apap 5/325 Tablet PO (12:48)
== END 2017-08-26 11:15 | disposition home or self-care (01) ==
LOC: ED 15:27 → PCU 16:22
PROVIDERS: Admitting Provider Internal Medicine; Emergency Provider Emergency Medicine; Family Provider Family Medicine; PCP Family Medicine; Visit Provider Internal Medicine
DX: R07.89 Other chest pain (principal); E87.6 Hypokalemia; K21.9 Gastro-esophageal reflux disease without esophagitis; G47.33 Obstructive sleep apnea (adult) (pediatric); J45.909 Unspecified asthma, uncomplicated; F32.9 Major depressive disorder, single episode, unspecified; F41.9 Anxiety disorder, unspecified; I10 Essential (primary) hypertension; E03.9 Hypothyroidism, unspecified; G89.29 Other chronic pain; M54.9 Dorsalgia, unspecified; R19.7 Diarrhea, unspecified; Z87.891 Personal history of nicotine dependence; Z79.899 Other long term (current) drug therapy
CPT/HCPCS: 36415; 71045; 78452; 80048; 80061; 83735; 84439; 84443; 84484; 85025; 85610; 85730; 93005; 93017; 96361; 96365; 96366; 96375; 99218; 99285; A9500; J7030; A4216; G0378; J2785

== ENCOUNTER → 2017-08-30 12:50 | Outpatient (CLI) | payer MEDICARE, SELFPAY ==
--- NOTE | 2017-08-31 08:29 | PFT ---
INTRODUCTION: The patient is a 62-year-old female currently under the care of myself the presents for pulmonary function testing secondary to a diagnosis of dyspnea on exertion. Respiratory therapy reports good patient effort. Bronchodilators were used during testing. INTERPRETATION: Forced expiration spirometry demonstrates no evidence of a large airways obstructive ventilatory defect. There was no significant response to aerosolized bronchodilators. Spirograms are of good quality and plateau normally. Body plethysmography was performed and reveals a decreased TLC to 3.6 L, 80% of predicted, indicative of a mild restrictive ventilatory impairment. The ERV was significantly reduced, which could be related to an underlying body habitus effect. Diffusing capacity by single breath CO is within normal limits at 74% of predicted. IMPRESSION: These pulmonary function studies demonstrate the presence of a mild restrictive ventilatory impairment. There are no previous pulmonary function studies available for comparison.
== END ==
PROVIDERS: Family Provider Family Medicine; PCP Family Medicine; Visit Provider Internal Medicine Critical Care Medicine
DX: R06.09 Other forms of dyspnea (principal)
CPT/HCPCS: 94060; 94726; 94729

== ENCOUNTER → 2017-09-01 09:34 | Outpatient (CLI) | payer MEDICARE, SELFPAY ==
[2017-09-01 10:00] VITALS: PULSE 102; PULSE 107; PULSE 116; PULSE 72; PULSE 79; PULSE 91; PULSE 99; O2SAT 89; O2SAT 90; O2SAT 91; O2SAT 93; O2SAT 95
--- NOTE | 2017-09-01 12:11 | WT_ITS ---
PSN 6 Minute Walk Test - 6 Minute Walk Test 6 Minute Walk Test: 6 Minute Walk Test PSN:6-Minute Walk Test Start: 09/01/17 10: 25 Freq: Status: Active Protocol: RESP.6MINW Document 09/01/17 10:00 HG (Rec: 09/01/17 10:32 HG [id number]) 6 Minute Walk Test Date Performed 09/01/17 Time Performed 10:00 Height 5 ft 2 in Weight: 220 lb Weight in Pounds 220.[address]: Kenny Alcantar Assistive device used: None Pre-test Oxygen Delivery Method Room Air Pulse Ox (%) 95 Pulse Rate (60-100 beats/min) 72 Dyspnea Elisa Scale (0-10) 3 Exertion Elisa Scale (6-20) 13 1st minute Oxygen Delivery Method Room Air Pulse Ox (%) 90 Pulse Rate (60-100 beats/min) 116 H 2nd minute Oxygen Delivery Method Room Air Pulse Ox (%) 89 Pulse Rate (60-100 beats/min) 102 H Number of Rests Taken 1 Reported Symptoms Increased Work of Breathing 3rd minute Oxygen Delivery Method Room Air Pulse Ox (%) 91 Pulse Rate (60-100 beats/min) 99 4th minute Oxygen Delivery Method Room Air Pulse Ox (%) 91 Pulse Rate (60-100 beats/min) 99 Number of Rests Taken 1 Reported Symptoms Increased Work of Breathing Dizziness 5th minute Oxygen Delivery Method Room Air Pulse Ox (%) 93 Pulse Rate (60-100 beats/min) 91 6th minute Oxygen Delivery Method Room Air Pulse Ox (%) 90 Pulse Rate (60-100 beats/min) 107 H Post-test Oxygen Delivery Method Room Air Pulse Ox (%) 95 Pulse Rate (60-100 beats/min) 79 Dyspnea Elisa Scale (0-10) 5 Exertion Elisa Scale (6-20) 14 Full Laps Walked 18 Partial Lap, Number of Tiles Walked 0 Total Distance Walked (ft) 1062 - Interpretation Interpretation: The patient ambulated 1062 feet over the course of 6 minutes on room air without assistive devices or breaks. Pretesting oxygen saturation was noted to be 95% on room air. With ambulation, the ti oxygen saturation was 89%. This represents a significant exertional oxygen desaturation. - Recommendations Recommendations: There is no indication for the use of supplemental oxygen at this time. However , close interval follow-up is recommended given the degree of oxygen desaturation noted during this study.
== END ==
PROVIDERS: Family Provider Family Medicine; PCP Family Medicine; Visit Provider Internal Medicine Critical Care Medicine
DX: R06.09 Other forms of dyspnea (principal)
CPT/HCPCS: 94618

== ENCOUNTER 2017-09-02 16:12 | Emergency (ER) | payer MEDICARE, SELFPAY ==
[2017-09-02 16:13] VITALS: BP 163/111; PULSE 80; RESP 15; TEMP 36.5; O2SAT 94; BMI 40.7
[2017-09-02 16:32] VITALS: O2SAT 97
[2017-09-02 16:34] VITALS: BP 146/68; PULSE 69; RESP 24; O2SAT 97
--- NOTE | 2017-09-02 16:42 | RAD_ITS ---
STUDY: X-RAY CHEST REASON FOR EXAM: Female, 62 years old. Coughing. Pain. History of bronchitis. TECHNIQUE: Frontal and lateral views of the chest. COMPARISON: 08/25/2017. FINDINGS: Normal lung volumes. Persistent hazy density in the mid and lower left lung consistent with infiltrate. Discoid atelectasis across the mid right lung. No effusions. Normal size heart. Normal mediastinum and dave. Normal visualized pulmonary arteries. Normal visualized aortic arch and descending thoracic aorta. The visualized bones and joints show degenerative changes. There is no demonstrated abnormality of the visualized soft tissue structures of the upper abdomen. RAD/Chest PA and Lateral IMPRESSION: Persistent hazy infiltrates in the mid and lower left lung. Discoid atelectasis across the mid right lung. Electronically Signed: Darien Mckenna MD at 18:10 EDT , Service support ,
[2017-09-02 16:58] VITALS: PULSE 78; RESP 20
[2017-09-02] MEDS: Ipratropium/Albuterol Sulfate 3 ML AMPUL.NEB INHALATION (16:58)
--- NOTE | 2017-09-02 18:21 | ED.RN ---
DR EAGLE PAGED FOR DR CRAIN
--- NOTE | 2017-09-02 19:03 | ED.DCSUM_ITS ---
- ER Visit Summary Date of Service: 09/02/17 Chief Complaint: Cough History of Present Illness: The patient is a 62 F who presents with a cough. She reports one month of cough. However on review of records she appears to have had cough for several months. She has been undergoing outpatient workup with pulmonology. She recently had pulmonary function tests. She has an appointment with pulmonology on Monday. She states that today while drinking her coffee she coughed and felt short of breath for a minute. Therefore she decided to present here for reevaluation. She denies any fevers chest pain vomiting diarrhea. She was recently admitted for chest pain workup as well. She is not currently short of breath. Physical Examination: Afebrile vitals unremarkable left initial blood pressure 163/111 Resting comfortably in no distress Heart regular rate and rhythm Lungs are clear Abdomen soft Extremities nontender Alert Test Results: Chest x-ray shows persistent hazy left-sided mid and lower left lung infiltrates as well as discoid atelectasis in the mid right lung. Emergency Department Course and Treatment: Patient was given a DuoNeb aerosol here. She was given an incentive spirometer. She is resting comfortably eating a sandwich on reevaluation. I attempted to contact her supervising film or videotape editor but was unsuccessful. Given that the left-sided infiltrates have been persistent on multiple prior x-rays and CT imaging and she does not have infectious symptoms I would not treat with antibiotics at this time. I would defer any other management to pulmonology who she has scheduled follow-up with. She understands return for new or worsening symptoms and was instructed on specific signs and symptoms to monitor for and was discharged home. Treatment Plan: [] Disposition: Discharge Impression: Chronic cough Atelectasis This note was generated with [employer] dictation software. It may contain incorrect words, spelling, and punctuation that were not noted in review of the chart prior to signing ED Disposition - Plan for ED Patient: Chief Complaint: Cough Referrals: Olivia Gates DO [Primary Care Provider] -
--- NOTE | 2017-09-02 19:03 | ED.DEP ---
ED Disposition - Plan for ED Patient: Chief Complaint: Cough Instructions: ED Cough Chronic Cause Unkn Referrals: Olivia Gates DO [Primary Care Provider] - Kenny Alcantar DO [STAFF PHYSICIAN] -
[2017-09-02 19:08] VITALS: BP 113/90; PULSE 73; RESP 18; O2SAT 94
== END 2017-09-02 19:08 | disposition home or self-care (01) ==
PROVIDERS: Emergency Provider Emergency Medicine; Family Provider Family Medicine; PCP Family Medicine
DX: R05 Cough (principal); J98.11 Atelectasis; K21.9 Gastro-esophageal reflux disease without esophagitis; E11.9 Type 2 diabetes mellitus without complications; I10 Essential (primary) hypertension; F32.9 Major depressive disorder, single episode, unspecified; E03.9 Hypothyroidism, unspecified; Z86.39 Personal history of other endocrine, nutritional and metabolic disease; Z79.899 Other long term (current) drug therapy
CPT/HCPCS: 71046; 94640; 99282

== ENCOUNTER 2017-12-13 15:30 | Emergency (ER) | payer MEDICARE, SELFPAY ==
[2017-12-13 15:31] VITALS: BP 201/80; PULSE 85; RESP 20; TEMP 36.2; O2SAT 95; BMI 41.5
--- NOTE | 2017-12-13 15:45 | EKG12_ITS ---
Test Reason : SOB Blood Pressure : / mmHG Vent. Rate : 079 BPM Atrial Rate : 079 BPM P-R Int : 160 ms QRS Dur : 084 ms QT Int : 426 ms P-R-T Axes : 010 020 024 degrees QTc Int : 488 ms Normal sinus rhythm Normal ECG Confirmed by GERA VARGAS ([id number]), news editor ROLO RAJPUT ([id number]) on 12/19/2017 1:41:31 PM Referred By: LARA Confirmed By:GERA VARGAS
--- NOTE | 2017-12-13 15:46 | ED.VISSUMM ---
- ER Visit Summary Date of Service: 12/13/17 Chief Complaint: Dyspnea, cough History of Present Illness: The patient is a 62 F states been having dyspnea cough for months, symptoms prior to last winter. Her PCP beginning of summer, referred to pulmonology. She saw Dr. Figueroa, pending a sleep test. She says possible COPD history. Denies tobacco history. History of pulmonary hypertension. Past few days increasing cough with productive sputum. Complains of chills. Subjective fevers. Occasional chest discomfort with cough. No radicular symptoms. No recent travel, surgeries, or immobilizations. No history of PE or DVT. Does have a allergy lisinopril causing a chronic cough, medication was removed, started on losartan with improving cough couple years ago. In triage noted blood pressure 201/80, no headache or visual changes. She is only on losartan, no other medications. Normal blood pressure reports 120-125 systolic. Physical Examination: General: Alert and oriented ?3, no acute distress. Occasional cough. Speaking in full sentences HEENT: Normocephalic, atraumatic. Moist mucosa membranes Neck: supple, nontender. Cardiovascular: Regular rate and rhythm, no murmurs Respiratory: Normal breath sounds, symmetric, no distress, no sensory muscle use Abdomen: Soft, nontender, nondistended Extremities: Nontender, no edema, pulses intact ?4 Neuro: no focal neurological deficits. Test Results: EKG sinus rate [address] or T-wave changes. Chest x-ray is chronic changes left lower lobe. Labs white count 9.4 hemoglobin 12.5. And 0.99. Troponin 0 0.015. Emergency Department Course and Treatment: Patient no respiratory distress pulse ox 97 room air afebrile. Initial blood pressure 2 1/80. During monitoring department recheck went down to 136/77 without intervention. Workup notes chronic changes. She states she did have improvement with aerosol treatments. She does have aerosols at home. Concerns with her cough for the past 8 months on an ARB, she had chronic cough to an WILLIAM inhibitor. Fill with chronic symptoms she may benefit from transitioning over to another blood pressure medicine. She has follow-up with a civil technician. Discussed with her PCP Dr. Gates, who agrees with the plan will stop losartan start amlodipine 10 mg. Discussed with patient monitor for leg swelling. She will call PCP for follow-up in 1 week. Treatment Plan: [] Disposition: Discharge Impression: 1. Bronchitis 2. Chronic cough This note was generated with PiCloud dictation software. It may contain incorrect words, spelling, and punctuation that were not noted in review of the chart prior to signing ED Disposition - Plan for ED Patient: Disposition: Home or Assisted Living Chief Complaint: Shortness of Breath Diagnosis: Bronchitis, Chronic cough Instructions: Discharge Instructions for Chronic Bronchitis Prescriptions: Amlodipine [Norvasc] 10 mg PO DAILY #30 tablet Referrals: Olivia Gates DO [Primary Care Provider] - 5-7 Days Additional Instructions: Stop your losartan. Start amlodipine. Continue inhalers at home as needed. Call your doctor for follow-up in 1 week.
[2017-12-13] MEDS: Ipratropium/Albuterol Sulfate 3 ML AMPUL.NEB INHALATION ×2 (15:58→17:51)
[2017-12-13 15:59] VITALS: PULSE 85; RESP 22
[2017-12-13 16:29] LABS: Absolute Lymphocyte Count 3.11 X10^3/ul (0.83-4.51); Absolute Neutrophil Count 5.4 X10^3/uL (2.0-7.7); Basophil# 0.05 X10^3/uL; Basophil% 0.5 % (0-1); Eosinophil# 0.11 X10^3/uL; Eosinophils% 1.2 % (0-5); Hematocrit 39.1 % (37-47); Hemoglobin 12.5 g/dl (12.0-15.0); Lymphocyte # 3.11 X10^3/ul (4.0); Mean Corpuscular Hgb 26.3 pg (27.0-32.0); Mean Corpuscular Volume 82.1 fL (81-99); Mean Platelet Vol. 9.8 fl (6.2-12.0); Monocyte# 0.71 X10^3/uL; Monocyte% 7.5 % (0-10); Neutrophil # 5.37 X10^3/uL (2.7-7.7); Neutrophil % 57.1 % (47-70); Platelet Count 320 K/mm3 (150-450); RBC Distribution Width CV 15.9 % (11.6-14.6); RBC Distribution Width SD 47.7 fl (35.1-43.9); Red Blood Count 4.76 M/mm3 (4.2-5.4); White Blood Count 9.4 K/mm3 (4.4-11.0)
[2017-12-13 16:33] LABS: Anion Gap 9 (5-15); BUN 18 mg/dL (7-18); BUN/Creat Ratio 18.1 RATIO (10-20); Calcium,Total 8.9 mg/dL (8.5-10.1); Chloride 107 mmol/L (98-107); Creatinine, Serum 0.99 mg/dL (0.55-1.02); EST Glomerular Filtration Rate 60 mL/min (>60); Est Glom Filt Rate - Afr Amer 72 mL/min (>60); Glucose 93 mg/dL (74-106); Potassium 3.6 mmol/L (3.5-5.1); Sodium Level 141 mmol/L (136-145)
[2017-12-13 16:36] LABS: POSITIVE COUNT NO; POSITIVE DIFFERENTIAL NO; POSITIVE MORPHOLOGY NO
[2017-12-13 17:34] VITALS: BP 141/72; RESP 20; O2SAT 91
[2017-12-13 17:51] VITALS: PULSE 81; RESP 18
[2017-12-13 18:36] VITALS: BP 140/77; PULSE 80; RESP 17; O2SAT 96
== END 2017-12-13 18:37 | disposition home or self-care (01) ==
PROVIDERS: Emergency Provider Emergency Medicine; Family Provider Family Medicine; PCP Family Medicine
DX: J40 Bronchitis, not specified as acute or chronic (principal); R05 Cough; I27.20 Pulmonary hypertension, unspecified; J44.9 Chronic obstructive pulmonary disease, unspecified; K21.9 Gastro-esophageal reflux disease without esophagitis; I10 Essential (primary) hypertension; E03.9 Hypothyroidism, unspecified; F32.9 Major depressive disorder, single episode, unspecified; F41.9 Anxiety disorder, unspecified; Z90.49 Acquired absence of other specified parts of digestive tract; Z79.899 Other long term (current) drug therapy
CPT/HCPCS: 71046; 80048; 84484; 85025; 93005; 94640; 99284; A4216

== ENCOUNTER 2018-06-16 12:02 | Emergency (ER) | payer MEDICARE, SELFPAY ==
[2018-06-16 12:02] VITALS: BP 150/84; PULSE 81; RESP 18; TEMP 36.6; O2SAT 96; BMI 43.9
--- NOTE | 2018-06-16 12:38 | ED.VISSUMM ---
- ER Visit Summary Date of Service: 06/16/18 Chief Complaint: Right index finger laceration History of Present Illness: The patient is a 63 F who was washing dishes when she sustained a laceration of the right index finger. It is on the ulnar side of the distal finger. No nail involvement. She has not taking any blood thinning medications. Her tetanus is up-to-date. Physical Examination: Vital signs reviewed. There is a 1 cm laceration distal to the DIP joint on the ulnar side of the right index finger. No bleeding at this time Test Results: None performed Emergency Department Course and Treatment: Since there is no nail involvement. I will repair this with Dermabond. It is on a non-flexing area of the finger. She will keep the area clean and dry Treatment Plan: [] Disposition: Discharge Impression: Right index finger laceration, 1 cm Dermabond by ED physician This note was generated with Ez[employer]op - [employer] Fl[employer] Flop dictation software. It may contain incorrect words, spelling, and punctuation that were not noted in review of the chart prior to signing ED Disposition - Plan for ED Patient: Referrals: Olivia Gates DO [Primary Care Provider] -
--- NOTE | 2018-06-16 12:39 | ED.DEP ---
ED Disposition - Plan for ED Patient: Disposition: Home or Assisted Living Instructions: ED Laceration Ext Skin Glue Referrals: Olivia Gates DO [Primary Care Provider] -
[2018-06-16 12:48] VITALS: BP 143/82; PULSE 76; RESP 16; O2SAT 98
== END 2018-06-16 13:01 | disposition home or self-care (01) ==
PROVIDERS: Emergency Provider Emergency Medicine; Family Provider Family Medicine; PCP Family Medicine
DX: S61.210A Laceration without foreign body of right index finger without damage to nail, initial encounter (principal); E11.9 Type 2 diabetes mellitus without complications; I10 Essential (primary) hypertension; Z79.51 Long term (current) use of inhaled steroids; Z79.891 Long term (current) use of opiate analgesic; Z79.899 Other long term (current) drug therapy; W26.9XXA Contact with unspecified sharp object(s), initial encounter; Y93.G1 Activity, food preparation and clean up; Y92.000 Kitchen of unspecified non-institutional (private) residence as the place of occurrence of the external cause; Y99.8 Other external cause status
CPT/HCPCS: 12001; 99282

== ENCOUNTER 2018-07-22 18:25 | Emergency (ER) | payer MEDICARE, SELFPAY ==
[2018-07-22 18:26] VITALS: BP 163/73; PULSE 72; RESP 16; TEMP 36.3; O2SAT 97; BMI 39.2
--- NOTE | 2018-07-22 19:08 | EKG12_ITS ---
Test Reason : GEN ILLNESS Blood Pressure : / mmHG Vent. Rate : 067 BPM Atrial Rate : 067 BPM P-R Int : 172 ms QRS Dur : 084 ms QT Int : 442 ms P-R-T Axes : 039 022 045 degrees QTc Int : 467 ms Normal sinus rhythm Normal ECG Confirmed by CHING OZUNA, KRISTEN ([id number]), newspaper editor managing ROLO RAJPUT ([id number]) on 07/24/2018 4:00:07 PM Referred By: ALEXIS Confirmed By:KRISTEN FLOWER MD
--- NOTE | 2018-07-22 19:20 | RAD_ITS ---
STUDY: X-RAY CHEST REASON FOR EXAM: Female, 63 years old. Sore throat dizziness TECHNIQUE: PA and lateral COMPARISON: December 13, 2017 FINDINGS: There are mild chronic interstitial changes. There is no focal infiltration.. There is no demonstrated pleural abnormality. Normal size heart. Normal mediastinum and dave. Normal visualized pulmonary arteries. Mildly calcified aortic arch and descending thoracic aorta. Dorsal spine demonstrates mild spondylosis. Normal visualized ribs, clavicles, and shoulders. There is no demonstrated abnormality of the visualized soft tissue structures of the upper abdomen. No significant change since prior exam RAD/Chest PA and Lateral IMPRESSION: No acute cardiopulmonary pathology Electronically Signed: Gumaro Philip MD at 19:52 EDT , Service support ,
[2018-07-22 19:22] VITALS: O2SAT 97
[2018-07-22 19:30] LABS: Absolute Lymphocyte Count 3.28 X10^3/ul (0.83-4.51); Absolute Neutrophil Count 3.9 X10^3/uL (2.0-7.7); Basophil# 0.04 X10^3/uL; Basophil% 0.5 % (0-1); Eosinophil# 0.18 X10^3/uL; Eosinophils% 2.3 % (0-5); Hematocrit 37.5 % (37-47); Hemoglobin 11.8 g/dl (12.0-15.0); Lymphocyte # 3.28 X10^3/ul (4.0); Mean Corp Hgb Conc 31.5 g/gl (32-36); Mean Corpuscular Hgb 26.5 pg (27.0-32.0); Mean Corpuscular Volume 84.3 fL (81-99); Mean Platelet Vol. 9.3 fl (6.2-12.0); Monocyte# 0.58 X10^3/uL; Monocyte% 7.3 % (0-10); Neutrophil % 48.6 % (47-70); Platelet Count 289 K/mm3 (150-450); RBC Distribution Width SD 49.1 fl (35.1-43.9); Red Blood Count 4.45 M/mm3 (4.2-5.4)
[2018-07-22 19:32] LABS: POSITIVE COUNT NO; POSITIVE DIFFERENTIAL NO; POSITIVE MORPHOLOGY NO
[2018-07-22 19:33] LABS: International Normalized Ratio 1.1; Prothrombin Time (Protime)PT. 13.9 SECONDS (11.7-14.9)
[2018-07-22 19:34] LABS: Partial Thromboplast Time 36.2 Seconds (24.1-36.2)
[2018-07-22 19:41] LABS: Anion Gap 4 (5-15); BUN 11 mg/dL (7-18); BUN/Creat Ratio 12.2 RATIO (10-20); Chloride 109 mmol/L (98-107); EST Glomerular Filtration Rate 67 mL/min (>60); Est Glom Filt Rate - Afr Amer 81 mL/min (>60); Estimated Creatinine Clearance 54.53 ml/min; Glucose 113 mg/dL (74-106); Potassium 3.5 mmol/L (3.5-5.1); Sodium Level 141 mmol/L (136-145)
[2018-07-22] MEDS: 0.9% Normal Saline 1,000 ML 999 ML IV (20:01)
[2018-07-22 20:02] VITALS: BP 138/70; BP 149/72; PULSE 71; PULSE 74
--- NOTE | 2018-07-22 20:06 | ED.VISSUMM ---
- ER Visit Summary Date of Service: 07/22/18 Chief Complaint: [Not feeling well, sore throat, dry mouth] History of Present Illness: The patient is a 63 F [presents the emergency department with multiple complaints which started yesterday. Patient states that she developed a sore throat and she has had some discomfort in her ears. Patient had a dry mouth. Patient's got up to do the dishes today and felt lightheaded for a time however it passed after sitting back down. She denies any chest pain or shortness of breath. She does have a cough which is been chronic and nonproductive. Patient being seen by cap maker for this. Patient denies any nausea or vomiting. Patient denies any diarrhea. She is had no chest pain. Denies abdominal pain. Patient was concerned that maybe she was dehydrated and that is why she was lightheaded.] Physical Examination: [HEENT-PERRLA, EOMI. Cranial nerves II through XII grossly intact. TMs clear. Mucous membranes moist. No adenopathy. Mild pharyngeal erythema. No exudates. Uvula midline with no trismus. Cardiovascular-regular rate and rhythm without murmur or ectopy Lungs-clear to auscultation, chest wall stable without crepitus or subcu emphysema Abdomen-normoactive bowel sounds, soft, nontender, no rebound or rigidity, no peritoneal signs. Extremities-intact ?4, normal range of motion, normal pulses, atraumatic] Test Results: Orthostatic vital signs were negative. [CBC with differential obtained showed a white count of 8.0, hemoglobin 11.8, hematocrit 37.5, platelets 289. Chemistries unremarkable. BUN was 11 and creatinine 0.9. Chest x-ray showed nothing acute. Rapid strep screen is negative.] Emergency Department Course and Treatment: [Patient was given a liter normal same fluid bolus.] Treatment Plan: [Patient advised to push fluids and follow-up with her primary care physician within next 3-5 days.] Disposition: [Discharged home in stable condition.] Impression: [Viral syndrome] This note was generated with Enerkemation software. It may contain incorrect words, spelling, and punctuation that were not noted in review of the chart prior to signing ED Disposition - Plan for ED Patient: Referrals: Olivia Gates DO [Primary Care Provider] -
--- NOTE | 2018-07-22 20:09 | ED.DCSUM_ITS ---
- ER Visit Summary Date of Service: 07/22/18 Chief Complaint: [Not feeling well, sore throat, dry mouth] History of Present Illness: The patient is a 63 F [presents the emergency department with multiple complaints which started yesterday. Patient states that she developed a sore throat and she has had some discomfort in her ears. Patient had a dry mouth. Patient's got up to do the dishes today and felt lightheaded for a time however it passed after sitting back down. She denies any chest pain or shortness of breath. She does have a cough which is been chronic and nonproductive. Patient being seen by [employer] [facility] for this. Patient denies any nausea or vomiting. Patient denies any diarrhea. She is had no chest pain. Denies abdominal pain. Patient was concerned that maybe she was dehydrated and that is why she was lightheaded.] Physical Examination: [HEENT-PERRLA, EOMI. Cranial nerves II through XII grossly intact. TMs clear. Mucous membranes moist. No adenopathy. Mild pharyngeal erythema. No exudates. Uvula midline with no trismus. Cardiovascular-regular rate and rhythm without murmur or ectopy Lungs-clear to auscultation, chest wall stable without crepitus or subcu emphysema Abdomen-normoactive bowel sounds, soft, nontender, no rebound or rigidity, no peritoneal signs. Extremities-intact ?4, normal range of motion, normal pulses, atraumatic] Test Results: Orthostatic vital signs were negative. [CBC with differential obtained showed a white count of 8.0, hemoglobin 11.8, hematocrit 37.5, platelets 289. Chemistries unremarkable. BUN was 11 and creatinine 0.9. Chest x-ray showed nothing acute. Rapid strep screen is negative.] Emergency Department Course and Treatment: [Patient was given a liter normal same fluid bolus.] Treatment Plan: [Patient advised to push fluids and follow-up with her primary care physician within next 3-5 days.] Disposition: [Discharged home in stable condition.] Impression: [Viral syndrome] This note was generated with PhoneJoy Solutionsation software. It may contain incorrect words, spelling, and punctuation that were not noted in review of the chart prior to signing ED Disposition - Plan for ED Patient: Referrals: Olivia Gates DO [Primary Care Provider] -
--- NOTE | 2018-07-22 20:09 | ED.DEP ---
ED Disposition - Plan for ED Patient: Instructions: ED Viral Syndrome Referrals: Olivia Gates DO [Primary Care Provider] - 3-5 Days
[2018-07-22 20:32] VITALS: PULSE 70; RESP 16; O2SAT 96
== END 2018-07-22 20:39 | disposition home or self-care (01) ==
PROVIDERS: Emergency Provider Emergency Medicine; Family Provider Family Medicine; PCP Family Medicine
DX: B34.9 Viral infection, unspecified (principal); J45.909 Unspecified asthma, uncomplicated; K21.9 Gastro-esophageal reflux disease without esophagitis; I10 Essential (primary) hypertension; G47.33 Obstructive sleep apnea (adult) (pediatric); E03.9 Hypothyroidism, unspecified; F41.9 Anxiety disorder, unspecified; Z79.51 Long term (current) use of inhaled steroids; Z79.899 Other long term (current) drug therapy
CPT/HCPCS: 71046; 80048; 85025; 85610; 85730; 87880; 93005; 96360; 99284; J7030; A4216

== ENCOUNTER 2018-08-18 18:55 | Emergency (ER) | payer MEDICARE, SELFPAY ==
[2018-08-18 18:57] VITALS: BP 164/81; PULSE 69; RESP 18; TEMP 36.3; O2SAT 93; BMI 38.0
--- NOTE | 2018-08-18 19:09 | ED.VISSUMM ---
- ER Visit Summary Date of Service: 08/18/18 Chief Complaint: I think I got a bit History of Present Illness: The patient is a 63 F presents to the emergency department with bruising and itching on her right thumb. The patient states it happened about half an hour ago. She thinks she may have gotten bit by something. She states that she felt a sharp pain and looked down. She had a raised area on her hand and then noticed some bruising on the thumb. She states it was itching. She actually squeezed the area and some clear drainage came out. She denies any shortness of breath. She denies any history of allergic reaction. She is otherwise been in her normal state of health. Physical Examination: Exam is relatively unremarkable. Patient does have ecchymosis on the dorsum of the right hand along the base of the thumb. There is also a small area that looks like a bite or sting. There is no streaking. There is no cellulitic change. She has no pain to palpation along the bones. Test Results: [] Emergency Department Course and Treatment: Patient does appear to have a local reaction to a bite or sting. She has no anaphylaxis. She will be treated with topical steroids and cold compress. She is comfortable with this plan of care and will be discharged home. Treatment Plan: Discharge Disposition: [] Impression: 1. Local reaction to bite This note was generated with Brand[employer] dictation software. It may contain incorrect words, spelling, and punctuation that were not noted in review of the chart prior to signing ED Disposition - Plan for ED Patient: Instructions: ED Bite Sting Insect Local Allergic React Prescriptions: Hydrocortisone 2.5% Crm [Hytone] 1 applic TOPICAL TID PRN PRN #1 tube PRN Reason: Itching Referrals: Olivia Gates DO [Primary Care Provider] -
[2018-08-18 19:28] VITALS: PULSE 70; RESP 16
== END 2018-08-18 19:29 | disposition home or self-care (01) ==
PROVIDERS: Emergency Provider Emergency Medicine; Family Provider Family Medicine; PCP Family Medicine
DX: S60.371A Other superficial bite of right thumb, initial encounter (principal); S60.011A Contusion of right thumb without damage to nail, initial encounter; X58.XXXA Exposure to other specified factors, initial encounter; Y93.9 Activity, unspecified; Y92.9 Unspecified place or not applicable; Z87.891 Personal history of nicotine dependence
CPT/HCPCS: 99282

== ENCOUNTER 2018-10-03 10:21 | Emergency (ER) | payer MEDICARE, SELFPAY ==
[2018-10-03] VITALS (7 sets, daily range): BP systolic 141–143; BP diastolic 74–106; PULSE 68–83; RESP 16–20; TEMP 36.4–36.9; O2SAT 91–96; BMI 37.0
--- NOTE | 2018-10-03 11:02 | EKG12_ITS ---
Test Reason : SOB Blood Pressure : / mmHG Vent. Rate : 070 BPM Atrial Rate : 070 BPM P-R Int : 160 ms QRS Dur : 078 ms QT Int : 446 ms P-R-T Axes : 014 005 036 degrees QTc Int : 481 ms Normal sinus rhythm Normal ECG Confirmed by HERMILO OZUNA, MUKUL ([id number]), publication editor SAM PEARCE ([id number]) on 10/05/2018 10:35:41 AM Referred By: LEILA Confirmed By:ANISHA AKHTAR MD
--- NOTE | 2018-10-03 11:04 | ED.VIS.DYS ---
History of Present Illness Chief Complaint: Shortness of Breath Informant: Patient Onset: Days - 2-3 Activity at onset: Rest Timing: Continuous - gradually worse this AM Quality: Wheezing Current Severity: Moderate Maximum Severity: Moderate Worsened by: Coughing, Exertion. Not Worsened By: Lying flat Relieved by: - - sometimes with lying down Associated Symptoms: Chills, Cough, Ear pain. Negative for: Fever, Sore throat Chest Pain: None, - - feels heavy in my arms Narrative: No history of heart or lung disease, has felt ill for the past 2 or 3 days with nonproductive coughing and gradually worsening shortness of breath/wheezing. No leg swelling or pain. No history of DVT or PE. No chest or upper back symptoms. - Past Medical History (1) Pulmonary hypertension Status: Chronic Comment: RVSP 30 mmHg (2) Anxiety Status: Chronic (3) Asthma Status: Chronic (4) Chronic back pain Status: Chronic (5) Depression Status: Chronic (6) HTN (hypertension) Status: Chronic (7) Hypothyroidism Status: Chronic (8) RAJNI (obstructive sleep apnea) Status: Chronic Past Medical History - Allergies and Home Meds Allergies/Adverse Reactions: Allergies lisinopril Adverse Reaction (Verified 10/03/18 10:23) Other Primary Care Physician: Olivia Gates DO [Primary Care Provider] - Surgical History: cholecystectomy, herniorrhaphy, hysterectomy, - - back Smoking Status: Former smoker - was very occasional Drugs: None - Family History Maternal Family History: Family History (Last Reviewed 09/08/17 @ 16:02 by CLYDE Espinoza) Father Cancer Mother Cancer Sister Cancer Brother Cancer Family History: Reports: No pertinent history Paternal Family History: Family History (Last Reviewed 09/08/17 @ 16:02 by CLYDE Espinoza) Father Cancer Mother Cancer Sister Cancer Brother Cancer Family History: Reports: No pertinent history Sibling Family History: Family History (Last Reviewed 09/08/17 @ 16:02 by CLYDE Espinoza) Father Cancer Mother Cancer Sister Cancer Brother Cancer Family History: Reports: Heart Disease - She has a brother who dropped suddenly about taking a walk. He was 63 YO. Review of Systems General: Reports: Chills, Malaise. Denies: Fever, Sweats Eyes: Denies: Visual changes - bilaterally, Diplopia ENT: Reports: Right ear pain, Sore throat - minor, occasional. Denies: Rhinorrhea Cardiovascular: Denies: Chest pain, Palpitations Respiratory: Reports: Dyspnea, Cough, Dyspnea on exertion. Denies: Sputum, Orthopnea, Paroxysmal nocturnal dyspnea Gastrointestinal: Denies: Abdominal pain, Nausea, Vomiting, Diarrhea, Melena, Hematochezia Genitourinary: Denies: Dysuria, Hematuria, Frequency Musculoskeletal: Reports: Back pain - chronic, low, unchanged. Denies: Swelling, Extremity Pain Skin: Denies: Rash, Wounds Neurological: Denies: Headache, Weakness, Numbness Physical Exam Vital Signs/Narrative: Vital Signs Temp Pulse Resp BP Pulse Ox 10/03/18 10:21 97.5 F L 83 20 H 141/106 H 96 Inital Vital Signs reviewed: Yes General: Well nourished, Well developed, No Acute Distress Head: Normocephalic, Atraumatic Eyes: Perrl, EOMI ENT: Moist mucous membranes, No rhinorrhea, - - Right TM with bulging effusion, no erythema or perforation or canal discharge. Neck: Supple, Nontender Cardiovascular: Regular rate, Regular rhythm, No murmurs Respiratory: No distress, Chest nontender, Wheezing - occasionally audible w/ stethoscope lower lobes, Diminished. Negative for: Rales, Rhonchi Abdomen: Soft, Nontender, Nondistended, Normal bowel sounds Back: Nontender, Normal Inspection - Including well-healed surgical scar lumbosacral Extremities: Nontender, No edema. Negative for: Calf Tenderness Skin: Normal color, No rash, No Trauma Neurological: Alert, Oriented x3, Cranial nerves II-XII grossly intact, Normal Strength, Normal Sensation, Normal Gait Psychological: Normal affect, Normal Mood Diagnostic/Tx/Re-eval Clinical Impression(s) from Imaging Studies Chest X-Ray 10/03/18 11:25 IMPRESSION: 1. Stable increased fine interstitial opacity/haziness of the left mid and lower lung prince with similar pattern dating back to 09/02/2017. Given the chronicity of these abnormalities, pneumonitis is felt to be less likely. Correlate clinically to determine whether further imaging evaluation with CT is warranted. 2. Otherwise, no acute cardiopulmonary disease. at 1154 Reported and signed by: Mino Salazar MD Electronically Signed: Mino Salazar MD at 11:52 EDT Tel , Service support , - Rhythm Strip Rhythm Strip: Sinus Rhythm Rate: 70 Ectopy: None - EKG Initial EKG Interpretation: Sinus Rhythm, No Acute Injury Pattern - Normal EKG Prior: Unchanged Treatment - Dyspnea: Albuterol, Atrovent Repeat Evaluation: Improved - Medical Decision Making Feeling much better after treatments and not hypoxic. Discussed x-ray findings with the patient. She states she had a fall/injury to her left thorax remotely, they think she sustained a pulmonary contusion, and has persistent radiographic abnormalities that she has heard about before. She also has asthma. She initially declined this, but states after the Atrovent she was feeling much better here. She was offered more but declined. Her EKG is normal. I feel comfortable treating her as a lower respiratory tract infection, versus a viral upper respiratory tract infection with asthma flare. She also appears to have an uncomfortable effusion of the right ear but her TM is not erythematous. I will put her on macrolide to cover all of this and prednisone and she is comfortable with that plan. ED Disposition - Plan for ED Patient: Disposition: Home or Assisted Living Diagnosis: Lower respiratory tract infection, Asthma exacerbation, Acute effusion of right ear Instructions: ASTHMA, Acute (Adult), BRONCHITIS, Antiobiotic Treatment (Adult) Prescriptions: Azithromycin 250 mg PO DAILY #6 tab Prescription Printed Prednisone [Deltasone] 40 mg PO DAILY #10 tab Prescription Printed Referrals: Olivia Gates DO [Primary Care Provider] - 1 Week if not improving
[2018-10-03] MEDS: Albuterol 2.5 MG/3 ML VIAL.NEB. INHALATION (11:11)
[2018-10-03] MEDS: Ipratropium/Albuterol Sulfate 3 ML AMPUL.NEB INHALATION (11:11)
--- NOTE | 2018-10-03 11:25 | RAD_ITS ---
HISTORY: Cough, shortness of breath XR Chest 2 Views TECHNIQUE: Frontal and lateral views of chest. # of images incl. paperwork: 2 COMPARISON: 07/22/2018, 12/13/2017, 09/02/2017 FINDINGS: Normal heart size., Chronic interstitial changes with persistent stable increased nonspecific interstitial interstitial/haziness of the left mid and lower lung field. No confluent areas of acute consolidation. Mild scarring right middle lobe. No pleural effusions or pneumothorax. No acute osseous abnormality of the thorax. RAD/Chest PA and Lateral IMPRESSION: 1. Stable increased fine interstitial opacity/haziness of the left mid and lower lung prince with similar pattern dating back to 09/02/2017. Given the chronicity of these abnormalities, pneumonitis is felt to be less likely. Correlate clinically to determine whether further imaging evaluation with CT is warranted. 2. Otherwise, no acute cardiopulmonary disease. at 1154 Reported and signed by: Mino Salazar MD Electronically Signed: Mino Salazar MD at 11:52 EDT Tel , Service support ,
[2018-10-03] MEDS: Ondansetron 4 MG/2 ML Vial IV (11:55)
[2018-10-03] MEDS: predniSONE 20 MG Tablet 40 MG PO (13:13)
== END 2018-10-03 13:20 | disposition home or self-care (01) ==
PROVIDERS: Emergency Provider Emergency Medicine; Family Provider Family Medicine; PCP Family Medicine
DX: J22 Unspecified acute lower respiratory infection (principal); J45.901 Unspecified asthma with (acute) exacerbation; H93.8X1 Other specified disorders of right ear; S29.9XXA Unspecified injury of thorax, initial encounter; W19.XXXA Unspecified fall, initial encounter; Y93.9 Activity, unspecified; Y92.9 Unspecified place or not applicable; I27.20 Pulmonary hypertension, unspecified; F41.9 Anxiety disorder, unspecified; M54.9 Dorsalgia, unspecified; G89.29 Other chronic pain; F32.9 Major depressive disorder, single episode, unspecified; I10 Essential (primary) hypertension; E03.9 Hypothyroidism, unspecified; G47.33 Obstructive sleep apnea (adult) (pediatric); Z79.899 Other long term (current) drug therapy; Z87.891 Personal history of nicotine dependence
CPT/HCPCS: 71046; 93005; 94640; 96374; 99284; A4216; J2405

== ENCOUNTER → 2018-10-18 | Outpatient (CLI) | payer MEDICARE, SELFPAY ==
[2018-10-03 10:21] VITALS: BMI 37.0
[2018-10-18 13:15] LABS: Free T3 2.8 pg/mL (2.18-3.98); Iron 59 ug/dL (50-170); T4 Free Direct 1.21 ng/dL (0.76-1.46)
[2018-10-18 13:17] LABS: Vitamin B12 253 pg/mL (211-911)
== END | disposition home or self-care (01) ==
LOC: BFHLAB 11:50
PROVIDERS: Family Provider Family Medicine; PCP Family Medicine; Visit Provider Family Medicine
DX: E03.9 Hypothyroidism, unspecified (principal); D64.9 Anemia, unspecified; R53.83 Other fatigue; E61.1 Iron deficiency
CPT/HCPCS: 36415; 82607; 83540; 84439; 84443; 84481

== ENCOUNTER 2018-11-20 09:39 | Emergency (ER) | payer MEDICARE, MEDICAID, SELFPAY ==
[2018-10-03 10:21] VITALS: BMI 37.0
[2018-11-20 09:40] VITALS: BP 165/93; PULSE 78; RESP 17; TEMP 36.6; O2SAT 93; BMI 37.0
--- NOTE | 2018-11-20 09:55 | ED.DCSUM_ITS ---
- ER Visit Summary Date of Service: 11/20/18 Chief Complaint: Lump in her posterior neck History of Present Illness: The patient is a 63 F past medical history of back problems. Patient states on Monday she felt a small lump in her posterior neck. When it was not getting better she attempted to incise and drain it with a needle. She states she clean the area well and used a needle that she sterilized with a match. But was unable to get anything out. She is has gotten somewhat bigger. She denies any fever. She has had a prior abscess on her back before that these drained but not in this area. She is not diabetic. Physical Examination: Well-appearing older female. Vital signs are stable afebrile. She is in no distress. H EENT exam unremarkable. Neck nontender tender except her left posterior spine and the back there is an area of indurated tissue. There is no cellulitis. There is an abrasion in the area where she I&D this. Currently there is no fluctuance whatsoever and I do not think there is a drainable abscess at this time. I think it is indurated soft tissue infection. Otherwise her back to unremarkable. There is no lymphadenopathy of her neck. She has normal range of motion. Lungs are clear to auscultation bilaterally. Heart regular rate and rhythm no murmur. Abdomen is soft. She is moving all 4 extremities. Neurovascular intact. Neurologically she is awake and alert. Test Results: None Emergency Department Course and Treatment: I think this is an early abscess but is not fluctuant it just feels like firm indurated tissue there is nothing to drain at this time and I explained that to the patient. Should be started on Keflex 500 4 times daily for 10 days and if this is getting larger to return to have it drained. Treatment Plan: Keflex 4 times daily for 10 days. Warm compresses to the area. Tylenol and Motrin for pain. Follow-up if not improving. Disposition: Discharge Impression: Subcu abscess on the posterior neck This note was generated with [employer] dictation software. It may contain incorrect words, spelling, and punctuation that were not noted in review of the chart prior to signing ED Disposition - Plan for ED Patient: Referrals: Olivia Gates DO [Primary Care Provider] -
--- NOTE | 2018-11-20 09:58 | ED.DEP ---
ED Disposition - Plan for ED Patient: Disposition: Home or Assisted Living Instructions: ABSCESS, Antiobiotic Treatment Only Prescriptions: Fluconazole [Diflucan] 200 mg PO X1 #1 tab Prescription Printed Cephalexin [Keflex] 500 mg PO Q6 #40 cap Prescription Printed Referrals: Olivia Gates DO [Primary Care Provider] - 1 Week if not improving Additional Instructions: Warm compresses and hot shower to the area. If this gets a lot larger and feels fluctuant like a small water balloon return and we can drain it. At this time there is nothing to drain. Keflex 1 pill 4 times a day for 10 days to hopefully resolve the soft tissue infection. Tylenol and Motrin for pain. Follow-up with your doctor if not improving.
[2018-11-20] MEDS: Cephalexin 250 MG Capsule 500 MG PO (10:34)
== END 2018-11-20 10:40 | disposition home or self-care (01) ==
LOC: ED 10:30
PROVIDERS: Emergency Provider Emergency Medicine; Family Provider Family Medicine; PCP Family Medicine
DX: L02.11 Cutaneous abscess of neck (principal)
CPT/HCPCS: 99283

== ENCOUNTER 2019-02-16 08:38 | Emergency (ER) | payer MEDICARE, MEDICAID, SELFPAY ==
[2019-02-16 08:40] VITALS: BP 175/70; PULSE 72; RESP 18; TEMP 37.9; O2SAT 97; BMI 37.9
--- NOTE | 2019-02-16 08:45 | ED.DCSUM_ITS ---
- ER Visit Summary Date of Service: 02/16/19 Chief Complaint: Hematuria History of Present Illness: The patient is a 63 F presents with hematuria. Presents with hematuria. Started when she woke up this morning. She has had 3 episodes at home. She also has been having dysuria with this. She does have a urinary tract infection history. She does have some lower abdominal pain with this. No nausea, vomiting or diarrhea. She denies fevers. Nothing makes his pain better or worse. He denies any feelings of urinary retention. Physical Examination: Vital signs reviewed. HEENT exam unremarkable. Heart is regular rate and rhythm without murmurs. Lungs are clear to auscultation. Abdomen is soft with suprapubic tenderness. There is no guarding or rebound tenderness.. Extremities reveal no edema. Skin exam normal. Neurologic exam normal. Test Results: Urinalysis shows 100 leukocytes and greater than 100 red blood cells Emergency Department Course and Treatment: The patient urinated on her own and there were red clots in this. A post void bladder scan showed 269 mL's. At this point a Busch catheter was inserted to the possible urinary retention. Her urinalysis is positive for blood. This is likely infection causing this. I will start her on Keflex. I will keep the catheter in to prevent urinary retention due to the clots in her urine. She will need to follow-up with her PCP early this week for catheter removal Treatment Plan: [] Disposition: Discharge Impression: Acute cystitis This note was generated with [employer] dictation software. It may contain incorrect words, spelling, and punctuation that were not noted in review of the chart prior to signing ED Disposition - Plan for ED Patient: Referrals: Olivia Gates DO [Primary Care Provider] -
[2019-02-16 08:59] LABS: Bacteria 0 SEEN /hpf (None Seen); Mucous, Urine 0 SEEN /hpf (<or=2+); Squamous Epithelial Cells - UA 0 SEEN /hpf (5-10); White Blood Cells 0 SEEN /hpf (0-5)
[2019-02-16 09:27] LABS: Color, Urine Red (Yellow); Glucose, Dipstick 50 mg/dl (Normal); Ketone-Dipstick 5 mg/dl (Negative); Leukocyte Esterase-Dipstick 100 /ul (Negative); Nitrite-Dipstick Positive (Negative); Occult Blood-Urine 250 /ul (Negative); Protein-Dipstick 500 mg/dl (Negative); Specific Gravity, Urine 1.015 (1.002-1.030); Urine Bilirubin Dipstick Negative (Negative); Urine Clarity Turbid (Clear); Urine Urobilinogen Normal (Normal)
[2019-02-16 09:35] LABS: Red Blood Cells-Urine > 100 SEEN /hpf (0-5)
--- NOTE | 2019-02-16 09:40 | ED.DEP ---
ED Disposition - Plan for ED Patient: Disposition: Home or Assisted Living Instructions: Bladder Infection, Female (Adult) Prescriptions: Cephalexin [Keflex] 500 mg PO Q12 #14 cap Prescription Printed Referrals: Olivia Gates DO [Primary Care Provider] -
[2019-02-16] MEDS: Cephalexin 250 MG Capsule 500 MG PO (09:42)
[2019-02-16 09:44] VITALS: BP 123/67; PULSE 65; RESP 17; O2SAT 95
[2019-02-16] MEDS: Phenazopyridine 95 MG Tablet 190 MG PO (09:48)
== END 2019-02-16 09:53 | disposition home or self-care (01) ==
PROVIDERS: Emergency Provider Emergency Medicine; Family Provider Family Medicine; PCP Family Medicine
DX: N30.01 Acute cystitis with hematuria (principal); J45.909 Unspecified asthma, uncomplicated; K21.9 Gastro-esophageal reflux disease without esophagitis; F41.9 Anxiety disorder, unspecified; F32.9 Major depressive disorder, single episode, unspecified; Z87.440 Personal history of urinary (tract) infections; Z79.899 Other long term (current) drug therapy
CPT/HCPCS: 51702; 81001; 87077; 87086; 87088; 87186; 99285

== ENCOUNTER 2019-03-20 16:51 | Emergency (ER) | payer MEDICARE, SELFPAY ==
[2019-03-20 16:53] VITALS: BP 159/91; PULSE 81; RESP 16; TEMP 36.1; O2SAT 93; BMI 36.7
--- NOTE | 2019-03-20 17:10 | ED.VIS.GEN ---
History of Present Illness Chief Complaint: Lower Extremity Injury Informant: Patient Onset: Days Context: Gradual Onset Timing: Intermittent Current Severity: Moderate Maximum Severity: Moderate Narrative: The patient is a 64-year-old female with history of chronic back pain on Cutler that presents to the emergency department with bilateral knee pain. The patient states that she will have pain in her knees from time to time, over the past week it is worsened. She states when she walks, she will get an ache in her knees. She denies any falls. She denies any trauma. She denies any fevers or chills. She states despite taking her Cutler, she still has the pain. She does ambulate without assistance. Prior similar symptoms: No Recent Illness/Hospitalization: No Past Medical History - Allergies and Home Meds Allergies/Adverse Reactions: Allergies lisinopril Adverse Reaction (Verified 03/20/19 16:53) Other Primary Care Physician: Olivia Gates DO [Primary Care Provider] - Prior records reviewed: Yes Past Medical History: - - Chronic pain, hypertension, hyperlipidemia Surgical History: cholecystectomy, herniorrhaphy, hysterectomy, - - back Smoking Status: Former smoker - Family History Maternal Family History: Family History (Last Reviewed 09/08/17 @ 16:02 by CLYDE Espinoza) Father Cancer Mother Cancer Sister Cancer Brother Cancer Family History: Reports: No pertinent history Paternal Family History: Family History (Last Reviewed 09/08/17 @ 16:02 by CLYDE Espinoza) Father Cancer Mother Cancer Sister Cancer Brother Cancer Family History: Reports: No pertinent history Sibling Family History: Family History (Last Reviewed 09/08/17 @ 16:02 by CLYDE Espinoza) Father Cancer Mother Cancer Sister Cancer Brother Cancer Family History: Reports: Heart Disease - She has a brother who dropped suddenly about taking a walk. He was 63 YO. Review of Systems General: Denies: Chills, Fever, Sweats Eyes: Denies: Visual changes - bilaterally, Diplopia ENT: Denies: Rhinorrhea, Sore throat Cardiovascular: Denies: Chest pain, Palpitations Respiratory: Denies: Dyspnea, Cough, Dyspnea on exertion Gastrointestinal: Denies: Abdominal pain, Nausea, Vomiting, Diarrhea, Melena, Hematochezia Genitourinary: Denies: Dysuria, Hematuria, Frequency Musculoskeletal: Reports: Arthralgias. Denies: Back pain, Extremity Pain Skin: Denies: Rash, Wounds Neurological: Denies: Headache, Weakness, Numbness Physical Exam Vital Signs/Narrative: Vital Signs Temp Pulse Resp BP Pulse Ox 03/20/19 16:53 97 F L 81 16 159/91 H 93 Inital Vital Signs reviewed: Yes General: Well nourished, Well developed, No Acute Distress Head: Normocephalic, Atraumatic Eyes: Perrl, EOMI ENT: Moist mucous membranes, No rhinorrhea Neck: Supple, Nontender Cardiovascular: Regular rate, Regular rhythm, No murmurs Respiratory: No distress, CTA bilaterally, Chest nontender Abdomen: Soft, Nontender, Nondistended, Normal bowel sounds Back: Nontender, Normal Inspection Extremities: No edema, Tenderness - Mild tenderness over bilateral knees. No gross laxity. No significant effusion. No erythema or warmth. Normal pulses. Skin: Normal color, No rash Neurological: Alert, Oriented x3, Cranial nerves II-XII grossly intact, Normal Strength, Normal Sensation Psychological: Normal affect, Normal Mood Diagnostic/Tx/Re-eval - Medical Decision Making The patient symptoms do seem consistent with arthritis. There is no erythema, edema, or laxity of the knees. It is bilateral. I do not suspect infectious process. X-rays were obtained. There is no is of acute fracture. There is chronic degenerative change. The patient is already on analgesics. I will add a short course of anti-inflammatories and she will follow-up with orthopedic surgeon or primary care for reevaluation. She is comfortable with this plan of care. Impression 1. Degenerative arthritis of bilateral knees with pain ED Disposition - Plan for ED Patient: Instructions: KNEE PAIN, Uncertain Cause Prescriptions: Naproxen [Naprosyn] 500 mg PO BID #14 tab Prescription Printed Referrals: Olivia Gates DO [Primary Care Provider] -
--- NOTE | 2019-03-20 17:20 | RAD_ITS ---
STUDY: X-RAY - RIGHT KNEE REASON FOR EXAM: Female, 64 years old. Trauma. Pain. TECHNIQUE: 4 view(s) of the knee. COMPARISON: None. FINDINGS: There is no evidence of fracture or dislocation. There are mild degenerative changes. There is a small joint effusion. There are no radiodense foreign bodies. RAD/Knee 4 or More Views IMPRESSION: No fracture or dislocation in the right knee. Mild degenerative change. Small joint effusion. Electronically Signed: Barrie Smith, at 17:46 EST Tel , Service support ,
--- NOTE | 2019-03-20 17:20 | RAD_ITS ---
STUDY: X-RAY - LEFT KNEE REASON FOR EXAM: Female, 64 years old. Trauma TECHNIQUE: 4 view(s) of the knee. COMPARISON: None. FINDINGS: There is no evidence of fracture or dislocation. There are mild degenerative changes. There is a small joint effusion. There are no radiodense foreign bodies. RAD/Knee 4 or More Views IMPRESSION: No fracture or dislocation in the left knee. Mild degenerative change. Small joint effusion. Electronically Signed: Barrie Smith, at 17:58 EST Tel , Service support ,
== END 2019-03-20 17:49 | disposition home or self-care (01) ==
LOC: ED 17:41
PROVIDERS: Emergency Provider Emergency Medicine; Family Provider Family Medicine; PCP Family Medicine
DX: M17.0 Bilateral primary osteoarthritis of knee (principal); G89.29 Other chronic pain; M54.9 Dorsalgia, unspecified; I10 Essential (primary) hypertension; E78.5 Hyperlipidemia, unspecified; Z79.891 Long term (current) use of opiate analgesic; Z79.899 Other long term (current) drug therapy; Z87.891 Personal history of nicotine dependence
CPT/HCPCS: 73564; 99282

== ENCOUNTER → 2019-05-09 16:44 | Outpatient (CLI) | payer MEDICARE, MEDICAID, SELFPAY ==
[2019-05-09 17:21] LABS: Absolute Lymphocyte Count 3.77 X10^3/uL (0.83-4.51); Absolute Neutrophil Count 3.6 X10^3/uL (2.0-7.7); Basophil# 0.05 X10^3/uL; Basophil% 0.6 % (0-1); Eosinophils% 1.2 % (0-5); Hematocrit 38.2 % (37-47); Hemoglobin 11.5 g/dL (12.0-15.0); Lymphocyte # 3.77 X10^3/ul (4.0); Lymphocyte % 45.8 % (19-41); Mean Corp Hgb Conc 30.1 g/dL (32-36); Mean Corpuscular Hgb 25.2 pg (27.0-32.0); Mean Corpuscular Volume 83.6 fL (81-99); Mean Platelet Vol. 9.9 fl (6.2-12.0); Monocyte# 0.67 X10^3/uL; Monocyte% 8.1 % (0-10); NRBC Flagged by Analyzer 0 % (0-5); Neutrophil # 3.62 X10^3/uL (2.7-7.7); Neutrophil % 44.1 % (47-70); Platelet Count 312 K/mm3 (150-450); RBC Distribution Width CV 15.2 % (11.6-14.6); RBC Distribution Width SD 45.7 fl (35.1-43.9); Red Blood Count 4.57 M/mm3 (4.2-5.4); White Blood Count 8.2 K/mm3 (4.4-11.0)
[2019-05-09 18:17] LABS: Vitamin B12 916 pg/mL (211-911)
[2019-05-09 18:25] LABS: Albumin, Serum 3.6 g/dL (3.2-5.0); BUN 13 mg/dL (7-18); BUN/Creat Ratio 13.9 RATIO (10-20); Creatinine, Serum 0.93 mg/dL (0.55-1.02); EST Glomerular Filtration Rate 64 mL/min (>60); Est Glom Filt Rate - Afr Amer 78 mL/min (>60); Glucose 89 mg/dL (74-106); Protein, Total 7.3 g/dL (6.4-8.2)
[2019-05-09 18:26] LABS: AST(SGOT) 18 U/L (15-37); Alanine Aminotransfer ALT/SGPT 18 U/L (13-56); Alkaline Phosphatase 80 U/L (45-117); Anion Gap 6 (5-15); Calcium,Total 8.7 mg/dL (8.5-10.1); Chloride 104 mmol/L (98-107); Free T3 2.6 pg/mL (2.18-3.98); Globulin 3.7 g/dL (2.2-4.2); Potassium 3.7 mmol/L (3.5-5.1); Sodium Level 138 mmol/L (136-145); T4 Free Direct 0.99 ng/dL (0.76-1.46); Thyroid Stim Hormone (TSH) 1.46 uIU/mL (0.358-3.74)
== END ==
PROVIDERS: PCP Family Medicine; Visit Provider Family Medicine
DX: E03.9 Hypothyroidism, unspecified (principal); E78.5 Hyperlipidemia, unspecified; E53.8 Deficiency of other specified B group vitamins; Z51.81 Encounter for therapeutic drug level monitoring
CPT/HCPCS: 36415; 80053; 82607; 84439; 84443; 84481; 85025

== ENCOUNTER 2019-12-02 03:27 | Emergency (ER) | payer MEDICARE, MEDICAID, SELFPAY ==
[2019-12-02 03:28] VITALS: BP 152/76; PULSE 68; RESP 16; TEMP 36.6; O2SAT 98; BMI 37.7
--- NOTE | 2019-12-02 04:00 | ED.VISSUMM ---
- ER Visit Summary Date of Service: 12/02/19 Chief Complaint: Right ear pain History of Present Illness: The patient is a 64 F who presents with right ear pain that began yesterday. Patient states the pain is sharp and throbbing. Patient states her pain is worse when she lays on her right ear. Patient states nothing seems to help with the pain. Patient denies any discharge or drainage. Patient admits to subjective fever. Patient also admits to some mild rhinorrhea. Patient denies any chest pain or shortness of breath. Patient denies any nausea or vomiting. Physical Examination: Vital signs are stable. Patient is afebrile. Patient is in no acute distress. The right external auditory canal is erythematous and edematous. The right tympanic membrane was clear. The left external auditory canal and tympanic membrane are clear. Neck is supple. Trachea is midline. There is no JVD. There is no lymphadenopathy. Oral mucosa is pink and moist. Oropharynx is clear. Heart was regular rate and rhythm. Lungs are clear and equal bilaterally. Abdomen is soft and nontender. Cranial nerves II through XII are intact. There are no focal motor or sensory deficits. Emergency Department Course and Treatment: Patient was given her first dose of Cortisporin otic suspension. Patient was given a bottle with instructions to apply 4 drops in her right ear 4 times a day for 7 days. Patient was instructed to follow-up with her primary care physician in 5 to 7 days. Patient understood and was agreeable with the plan. All questions were answered. Disposition: Discharge home Impression: Acute right otitis externa This note was generated with [employer] dictation software. It may contain incorrect words, spelling, and punctuation that were not noted in review of the chart prior to signing ED Disposition - Plan for ED Patient: Disposition: Home or Assisted Living Diagnosis: Acute otitis externa of right ear Instructions: ED Otitis Externa Referrals: Olivia Gates DO [Primary Care Provider] - 5-7 Days
[2019-12-02] MEDS: Neomycin/Polymyxin/Dexameth 5ML OPTH.BTL 4 DRP OTIC (04:27)
[2019-12-02 04:29] VITALS: BP 148/62; PULSE 68; RESP 18; O2SAT 96
== END 2019-12-02 04:30 | disposition home or self-care (01) ==
LOC: ED 04:21
PROVIDERS: Emergency Provider Emergency Medicine; PCP Family Medicine
DX: H60.501 Unspecified acute noninfective otitis externa, right ear (principal); R51 Headache; M54.2 Cervicalgia; M54.9 Dorsalgia, unspecified; G89.29 Other chronic pain; M79.7 Fibromyalgia; E03.9 Hypothyroidism, unspecified; K21.9 Gastro-esophageal reflux disease without esophagitis; F41.9 Anxiety disorder, unspecified; E66.9 Obesity, unspecified; Z79.899 Other long term (current) drug therapy
CPT/HCPCS: 99282

== ENCOUNTER 2019-12-03 02:26 | Emergency (ER) | payer MEDICARE, MEDICAID, SELFPAY ==
[2019-12-02 03:28] VITALS: BMI 37.7
[2019-12-03 02:28] VITALS: BP 165/74; PULSE 65; RESP 16; TEMP 36.7; O2SAT 99; BMI 37.8
--- NOTE | 2019-12-03 02:53 | ED.DCSUM_ITS ---
History of Present Illness Chief Complaint: Ear Problem Informant: Patient Onset: Days Context: Gradual Onset Current Severity: Moderate Maximum Severity: Severe Narrative: Patient presents secondary to increased right ear pain. She reports right ear pain that started 2 days ago. She was seen in the ER early yesterday morning and diagnosed with otitis externa. She is on polymyxin drops. Patient states in spite of this pain is worsened and feels like it spreading into her face and toward her jaw. She denies fever or chills. She denies being diabetic. She is currently taking Tylenol for pain. - Past Medical History (1) Asthma Status: Chronic (2) Depression Status: Chronic (3) GERD (gastroesophageal reflux disease) Status: Chronic (4) HTN (hypertension) Status: Chronic (5) Hypothyroidism Status: Chronic (6) Pulmonary hypertension Status: Chronic Comment: RVSP 30 mmHg Past Medical History - Allergies and Home Meds Allergies/Adverse Reactions: Allergies lisinopril Adverse Reaction (Verified 12/03/19 02:26) Other Primary Care Physician: Olivia Gates DO [Primary Care Provider] - Prior records reviewed: Yes Surgical History: cholecystectomy, herniorrhaphy, hysterectomy, - - back Smoking Status: Never smoker - Family History Maternal Family History: Family History (Last Reviewed 09/08/17 @ 16:02 by CLYDE Espinoza) Father Cancer Mother Cancer Sister Cancer Brother Cancer Family History: Reports: No pertinent history Paternal Family History: Family History (Last Reviewed 09/08/17 @ 16:02 by CLYDE Espinoza) Father Cancer Mother Cancer Sister Cancer Brother Cancer Family History: Reports: No pertinent history Sibling Family History: Family History (Last Reviewed 09/08/17 @ 16:02 by CLYDE Espinoza) Father Cancer Mother Cancer Sister Cancer Brother Cancer Family History: Reports: Heart Disease - She has a brother who dropped suddenly about taking a walk. He was 63 YO. Review of Systems General: Denies: Chills, Fever Eyes: Denies: Visual changes - bilaterally ENT: Reports: Right ear pain Cardiovascular: Denies: Chest pain Respiratory: Denies: Dyspnea, Cough Gastrointestinal: Denies: Abdominal pain, Nausea, Vomiting, Diarrhea Genitourinary: Denies: Dysuria Musculoskeletal: Denies: Extremity Pain Skin: Denies: Rash Neurological: Denies: Headache Hematologic: Denies: Easy bruising, Easy bleeding Allergy: Denies: Uticaria Physical Exam Vital Signs/Narrative: Vital Signs Temp Pulse Resp BP Pulse Ox 12/03/19 02:28 98.0 F 65 16 165/74 H 99 Inital Vital Signs reviewed: Yes General: Well nourished, Well developed Head: Normocephalic Eyes: Perrl, EOMI ENT: Moist mucous membranes, - - Significant erythema and edema to the right external ear canal. I can still visualize the tympanic membrane which appears clear. No tenderness over the mastoid air cells. Neck: Supple, No lymphadenopathy Cardiovascular: Regular rate, Regular rhythm Respiratory: No distress, CTA bilaterally Abdomen: Soft, Nontender Skin: Normal color Neurological: Alert, Oriented x3 Psychological: Normal affect Diagnostic/Tx/Re-eval Impressions Facial/Sinus 12/03/19 03:00 IMPRESSION: Cellulitis in the right periauricular region. Right otitis externa. Right otitis media. Mild right mastoiditis. No demonstrated abscess. No demonstrated bone destruction. No evidence for cholesteatoma. Electronically Signed: Brian Love MD at 4:05 EDT , Service support , 12/03/19 03:00 CT Facial [Sinus/Facial Bone WITH Contras] [CT] Stat Laboratory Results 12/03/19 12/03/19 03:05 03:05 WBC 7.2 Total Counted 100 Neutrophils % (Manual) 56 Lymphocytes % (Manual) 36 Monocytes % (Manual) 7 Eosinophils % (Manual) 1 Differential Comment MANUAL DIFF Platelet Estimate ADEQUATE RBC Morphology N CYTIC Hypochromasia 1+ Sodium 143 Potassium 3.9 Chloride 109 H Carbon Dioxide 30.0 Anion Gap 4 L BUN 14 Creatinine 0.89 Estim Creat Clear Calc 54.42 Est GFR (MDRD) Af Amer 82 Est GFR (MDRD) Non-Af 68 BUN/Creatinine Ratio 15.8 Glucose 96 Calcium 8.6 - Medical Decision Making She was given a dose of morphine here for pain control. On repeat evaluation she is resting more comfortably. I did discuss with her my concern that she may be developing early malignant otitis externa. CT scan also raises concern for cellulitis. She will be treated with Cipro as well as Keflex for coverage. She has seen ENT here in [place] previously and will follow up with them. ED Disposition - Plan for ED Patient: Disposition: Home or Assisted Living Diagnosis: Malignant otitis externa Instructions: ED Otitis Externa Prescriptions: Ciprofloxacin [Cipro] 750 mg PO BID #10 days Transmission Status: Pending to [facility] Cephalexin [Keflex] 500 mg PO Q6 #40 cap Transmission Status: Pending to [facility] Hydrocodone Bitart/Apap 5-325 [Bronaugh 5MG-325MG] 1 tab PO Q6H PRN PRN 3 Days #10 tab PRN Reason: Pain Transmission Status: Sent to [facility] Referrals: Aj Bergman MD [STAFF PHYSICIAN] - 3-5 Days
--- NOTE | 2019-12-03 03:00 | CT_ITS ---
STUDY: CT FACIAL BONES WITH CONTRAST REASON FOR EXAM: Female, 64 years old. RT EAR PAIN AND REDNESS,NOT TENDER OVER MASTOID AREA,DX: WITH EAR INFECTION-ON POLYMYXIN DROPS -- HX:HTN,ASTHMA,HYPOTHYROID RADIATION DOSAGE (If Supplied By Facility): CTDIvol = ( 29.38 ) mGy, DLP = ( 532.76 ) mGycm TECHNIQUE: The patient was scanned in a multi detector CT scanner. Transaxial imaging was performed following the intravenous administration of IV 100mL Isovue-300. Sagittal and coronal images were reconstructed. Individualized dose optimization techniques were used for this CT. COMPARISON: CT scan facial bones 05/06/2011. FINDINGS: There is infiltration of subcutaneous fat in the right periventricular region, consistent with cellulitis. There is also thickening of the superficial portions of the right external auditory canal, consistent with otitis externa. No discrete mass or abscess is demonstrated. There is partial opacification of the right middle ear, consistent with otitis media. Opacification of some small right mastoid air cells, consistent with mild mastoiditis. There is no opacification of the mastoid antrum. There is no visualized bone destruction. Ossicles are intact. Normal orbital ross and orbital contents. Normal nasal bones and anterior nasal spine. Normal facial bones. There is no demonstrated fracture. The patient is a dentulous. There is mild mucoperiosteal thickening in the ethmoid sinuses, consistent with chronic disease. There is no evidence for acute paranasal sinusitis. CT/Sinus/Facial Bone WITH Contras IMPRESSION: Cellulitis in the right periauricular region. Right otitis externa. Right otitis media. Mild right mastoiditis. No demonstrated abscess. No demonstrated bone destruction. No evidence for cholesteatoma. Electronically Signed: Brian Love MD at 4:05 EDT , Service support ,
[2019-12-03] MEDS: Morphine 4 MG/ML Syringe IV (03:06)
[2019-12-03] MEDS: Ondansetron 4 MG/2 ML Vial IV (03:06)
[2019-12-03 03:25] LABS: Anion Gap 4 (5-15); BUN 14 mg/dL (7-18); BUN/Creat Ratio 15.8 RATIO (10-20); Calcium,Total 8.6 mg/dL (8.5-10.1); Chloride 109 mmol/L (98-107); Creatinine, Serum 0.89 mg/dL (0.55-1.02); EST Glomerular Filtration Rate 68 mL/min (>60); Est Glom Filt Rate - Afr Amer 82 mL/min (>60); Estimated Creatinine Clearance 54.42 ml/min; Glucose 96 mg/dL (74-106); Potassium 3.9 mmol/L (3.5-5.1); Sodium Level 143 mmol/L (136-145)
[2019-12-03 03:33] VITALS: RESP 17
[2019-12-03] MEDS: Ciprofloxacin 500 MG Tablet 750 MG PO (04:15)
[2019-12-03] MEDS: Cephalexin 250 MG Capsule 500 MG PO (04:15)
[2019-12-03] MEDS: HYDROcodone Bitartrate/Apap 5/325 Tablet PO (04:22)
[2019-12-03 04:23] VITALS: BP 132/71; PULSE 71; RESP 18; O2SAT 99
[2019-12-03 09:08] LABS: Absolute Lymphocyte Count 3.42 X10^3/uL (0.83-4.51); Absolute Neutrophil Count 4.7 X10^3/uL (2.0-7.7); Basophil# 0.05 X10^3/uL; Basophil% 0.5 % (0-1); Eosinophil# 0.14 X10^3/uL; Eosinophils% 1.5 % (0-5); Hematocrit 38.9 % (37-47); Hemoglobin 11.9 g/dL (12.0-15.0); Lymphocyte # 3.42 X10^3/ul (4.0); Lymphocyte % 36.7 % (19-41); Mean Corp Hgb Conc 30.6 g/dL (32-36); Mean Corpuscular Hgb 26.1 pg (27.0-32.0); Mean Corpuscular Volume 85.3 fL (81-99); Mean Platelet Vol. 10.6 fl (6.2-12.0); Monocyte# 0.98 X10^3/uL; Monocyte% 10.5 % (0-10); NRBC Flagged by Analyzer 0 % (0-5); Neutrophil % 50.4 % (47-70); Platelet Count 302 K/mm3 (150-450); RBC Distribution Width CV 15.4 % (11.6-14.6); RBC Distribution Width SD 47.5 fl (35.1-43.9); Red Blood Count 4.56 M/mm3 (4.2-5.4); White Blood Count 9.3 K/mm3 (4.4-11.0)
== END 2019-12-03 04:24 | disposition home or self-care (01) ==
PROVIDERS: Emergency Provider Emergency Medicine; PCP Family Medicine
DX: H60.11 Cellulitis of right external ear (principal); H66.91 Otitis media, unspecified, right ear; H60.21 Malignant otitis externa, right ear; K21.9 Gastro-esophageal reflux disease without esophagitis; E03.9 Hypothyroidism, unspecified; I10 Essential (primary) hypertension; F32.9 Major depressive disorder, single episode, unspecified; J45.909 Unspecified asthma, uncomplicated; I27.20 Pulmonary hypertension, unspecified
CPT/HCPCS: 70487; 80048; 85025; 96374; 96375; 99284; Q9967; A4216; J2405

== ENCOUNTER 2019-12-09 14:02 | Emergency (ER) | payer MEDICARE, MEDICAID, SELFPAY ==
[2019-12-09 14:03] VITALS: BP 130/61; PULSE 81; RESP 22; TEMP 36.2; O2SAT 96; BMI 36.3
--- NOTE | 2019-12-09 14:50 | RAD_ITS ---
STUDY: X-RAY - UNILATERAL RIBS ( LEFT ) WITH CHEST REASON FOR EXAM: Female, 64 years old. Fell, pain mid left anterior ribs, just under left breast TECHNIQUE - RIBS: 3 view(s) of the ribs. TECHNIQUE - CHEST: Single PA view of the chest. COMPARISON: Comparison is made with prior chest radiograph dated 10/03/2018. FINDINGS - RIBS: Healed right rib fractures. FINDINGS - CHEST: Mild elevation of the right hemidiaphragm. There is no demonstrated pleural abnormality. Normal size heart. Normal mediastinum and dave. Normal visualized pulmonary arteries. Normal visualized aortic arch and descending thoracic aorta. There are diffuse degenerative changes of the visualized thoracic spine. Healed right rib fractures. There is no demonstrated abnormality of the visualized soft tissue structures of the upper abdomen. RAD/Ribs Uni Min 3V w/PA Chest IMPRESSION: RIBS: Healed right rib fractures. CHEST: Normal x-ray examination of the chest. Electronically Signed: Siddhartha Butterfield, at 15:06 EDT , Service support ,
[2019-12-09] MEDS: Lidocaine 5% Patch 1 PATCH TOPICAL (15:53)
[2019-12-09] MEDS: morphine 8 MG/ML Syringe 6 MG IM (15:53)
--- NOTE | 2019-12-09 16:01 | ED.VIS.INJ ---
History of Present Illness Chief Complaint: Other, Pain/Inj Informant: Patient Onset: Today Narrative: Patient is a 64-year-old female with history of chronic back pain presenting with left-sided rib pain. Patient was cleaning out her chest freezer and was leaning on her left ribs when she suddenly felt a slip and a pop sensation of her left anterior ribs. She had immediate pain. This was 30 to 45 minutes prior to arrival. She does not feel short of breath but notes the pain is worse if she takes a deep breath. She not take anything for her pain. Patient denies any prior injuries to the area. She states he felt fine earlier today. She denies any more centralized chest pain or other systemic symptoms. Has had no cough or hemoptysis. Patient does not feel short of breath. No other complaints at this time. Past Medical History - Allergies and Home Meds Allergies/Adverse Reactions: Allergies lisinopril Adverse Reaction (Verified 12/09/19 14:06) Other Primary Care Physician: Olivia Gates DO [Primary Care Provider] - Past Medical History: - - Hypertension, not on any medications and chronic back pain Surgical History: cholecystectomy, herniorrhaphy, hysterectomy, - - back Smoking Status: Former smoker - Family History Maternal Family History: Family History (Last Reviewed 09/08/17 @ 16:02 by CLYDE Zelaya) Father Cancer Mother Cancer Sister Cancer Brother Cancer Family History: Reports: No pertinent history Paternal Family History: Family History (Last Reviewed 09/08/17 @ 16:02 by CLYDE Zelaya) Father Cancer Mother Cancer Sister Cancer Brother Cancer Family History: Reports: No pertinent history Sibling Family History: Family History (Last Reviewed 09/08/17 @ 16:02 by CLYDE Zelaya) Father Cancer Mother Cancer Sister Cancer Brother Cancer Family History: Reports: Heart Disease - She has a brother who dropped suddenly about taking a walk. He was 63 YO. Review of Systems General: Denies: Chills, Fever, Sweats Eyes: Denies: Visual changes - bilaterally, Diplopia ENT: Denies: Rhinorrhea, Sore throat Cardiovascular: Reports: Chest pain - left anterior ribs . Denies: Palpitations Respiratory: Denies: Dyspnea, Cough, Dyspnea on exertion Gastrointestinal: Denies: Abdominal pain, Nausea, Vomiting, Diarrhea, Melena, Hematochezia Genitourinary: Denies: Dysuria, Hematuria, Frequency Musculoskeletal: Denies: Back pain, Extremity Pain Skin: Denies: Rash, Wounds Neurological: Denies: Headache, Weakness, Numbness Physical Exam Vital Signs/Narrative: Vital Signs Temp Pulse Resp BP Pulse Ox 12/09/19 14:03 97.1 F L 81 22 H 130/61 H 96 Inital Vital Signs reviewed: Yes General: Well nourished, Well developed Head: Normocephalic, Atraumatic Eyes: Perrl, EOMI ENT: No hemotympanum or drainage, No trauma Neck: Nontender, Full ROM Cardiovascular: Regular rate, Regular rhythm, No murmurs Respiratory: No distress, CTA bilaterally, Chest tenderness - Highly reproducible chest pain of the left anterior ribs at the costochondral function, - - No chest wall crepitus Abdomen: Soft, Nontender, Nondistended, Normal bowel sounds Back: Nontender Skin: Normal color, No rash Neurological: Alert, Oriented x3, Cranial nerves II-XII grossly intact, Normal Strength, Normal Sensation Psychological: Normal affect Diagnostic/Tx/Re-eval Clinical Impression(s) from Imaging Studies Ribs w/Chest X-Ray 12/09/19 14:50 IMPRESSION: RIBS: Healed right rib fractures. CHEST: Normal x-ray examination of the chest. Electronically Signed: Siddhartha Butterfield, at 15:06 EDT , Service support , - Medical Decision Making Patient is evaluated for sudden onset of left anterior rib pain. The pain to be very much muscle skeletal and she is a mechanism injury where she was leaning over her deep freezer and then felt a pop. I do not suspect ACS or PE or other more sinister causes of this pain. I did obtain a rib series which did not show any acute fracture. Patient is given a Lidoderm patch as well as 1 dose of IM morphine. She will discharged home to follow-up with her primary care doctor. She is instructed that she can get [id number] Lidoderm patches if she found it helpful today. She is not have any overlying skin changes or rash. Patient is counseled on signs and symptoms requiring return to the emergency room. Patient verbalizes agreement and understand this plan. Patient discharged home in stable and improved condition. ED Disposition - Plan for ED Patient: Disposition: Home or Assisted Living Diagnosis: Strain of chest wall Instructions: ED CHEST PAIN [place], ED CONTUSION Rib Referrals: Olivia Gates DO [Primary Care Provider] - Additional Instructions: You may use Lidoderm patches that are available at any pharmacy in the 4% concentration over the area of pain. Continue to take your home pain medications. You may also alternate ibuprofen as needed. Return the emergency room with any worsening symptoms. There is no signs of an acute fracture/broken bone today.
== END 2019-12-09 16:21 | disposition home or self-care (01) ==
PROVIDERS: Emergency Provider Emergency Medicine; PCP Family Medicine
DX: S29.011A Strain of muscle and tendon of front wall of thorax, initial encounter (principal); X58.XXXA Exposure to other specified factors, initial encounter
CPT/HCPCS: 71101; 96372; 99283

== ENCOUNTER → 2020-05-21 13:41 | Outpatient (CLI) | payer MEDICARE, MEDICAID, SELFPAY ==
[2020-05-21 15:08] LABS: Absolute Lymphocyte Count 3.82 X10^3/uL (0.83-4.51); Absolute Neutrophil Count 3.8 X10^3/uL (2.0-7.7); Basophil# 0.08 X10^3/uL; Basophil% 0.9 % (0-1); Eosinophil# 0.21 X10^3/uL; Eosinophils% 2.5 % (0-5); Hematocrit 41.4 % (37-47); Hemoglobin 12.8 g/dL (12.0-15.0); Lymphocyte # 3.82 X10^3/ul (4.0); Lymphocyte % 44.7 % (19-41); Mean Corp Hgb Conc 30.9 g/dL (32-36); Mean Corpuscular Hgb 26.2 pg (27.0-32.0); Mean Corpuscular Volume 84.7 fL (81-99); Mean Platelet Vol. 9.7 fl (6.2-12.0); Monocyte# 0.64 X10^3/uL; Monocyte% 7.5 % (0-10); NRBC Flagged by Analyzer 0 % (0-5); Neutrophil # 3.75 X10^3/uL (2.7-7.7); Neutrophil % 43.8 % (47-70); Platelet Count 384 K/mm3 (150-450); RBC Distribution Width CV 15.3 % (11.6-14.6); RBC Distribution Width SD 46.8 fl (35.1-43.9); Red Blood Count 4.89 M/mm3 (4.2-5.4); White Blood Count 8.6 K/mm3 (4.4-11.0)
[2020-05-21 15:47] LABS: ALB/GLOB Ratio 0.8 RATIO (0.9-2.4); AST(SGOT) 19 U/L (15-37); Alanine Aminotransfer ALT/SGPT 17 U/L (13-56); Albumin, Serum 3.3 g/dL (3.2-5.0); Alkaline Phosphatase 104 U/L (45-117); Anion Gap 5 (5-15); BUN 12 mg/dL (7-18); BUN/Creat Ratio 13.2 RATIO (10-20); Calcium,Total 8.6 mg/dL (8.5-10.1); Chloride 106 mmol/L (98-107); Creatinine, Serum 0.91 mg/dL (0.55-1.02); EST Glomerular Filtration Rate 66 mL/min (>60); Est Glom Filt Rate - Afr Amer 80 mL/min (>60); Free T3 2.1 pg/mL (2.18-3.98); Glucose 106 mg/dL (74-106); Protein, Total 7.3 g/dL (6.4-8.2); Sodium Level 140 mmol/L (136-145); T4 Free Direct 1.17 ng/dL (0.76-1.46); Thyroid Stim Hormone (TSH) 1.68 uIU/mL (0.358-3.74)
== END ==
PROVIDERS: PCP Family Medicine; Visit Provider Family Medicine
DX: E03.9 Hypothyroidism, unspecified (principal); Z51.81 Encounter for therapeutic drug level monitoring
CPT/HCPCS: 36415; 80053; 84439; 84443; 84481; 85025

== ENCOUNTER → 2020-06-30 08:16 | Outpatient (CLI) | payer MEDICARE, MEDICAID, SELFPAY ==
--- NOTE | 2020-06-30 08:37 | RAD_ITS ---
STUDY: X-RAY - ESOPHAGUS (BARIUM SWALLOW) WITH FLUOROSCOPY REASON FOR EXAM: Female, 65 years old. DYSPHAGIA TECHNIQUE: 19 view(s) of the esophagus were obtained following swallowing of barium. FLUOROSCOPY TIME (if supplied): (0:24) minutes/seconds COMPARISON: None. FINDINGS: There is no demonstrated esophageal foreign body. There is no demonstrated stricture or mucosal abnormality. Normal gastroesophageal junction, without a demonstrated hiatal hernia. The patient ingested a 12 mm tablet of barium without any difficulty. There is atherosclerotic calcification of the aortic arch with tortuosity of the descending aorta. Normal visualized pulmonary parenchyma. Normal visualized osseous structures of the thorax. RAD/Esophagus Dual Contrast IMPRESSION: Normal plain film x-ray examination (barium swallow) of the esophagus. Electronically Signed: Siddhartha Butterfield MD at 13:59 EDT , Service support ,
== END ==
PROVIDERS: PCP Family Medicine; Referring Provider Otolaryngology Otolaryngology/Facial Plastic Surgery; Visit Provider Otolaryngology Otolaryngology/Facial Plastic Surgery
DX: R13.10 Dysphagia, unspecified (principal)
CPT/HCPCS: 74221

== ENCOUNTER 2020-07-04 14:24 | Emergency (ER) | payer MEDICARE, MEDICAID, SELFPAY ==
[2020-07-04 14:27] VITALS: BP 134/73; PULSE 75; RESP 16; TEMP 36.6; O2SAT 96; BMI 40.9
--- NOTE | 2020-07-04 14:42 | EKG12_ITS ---
Test Reason : Blood Pressure : / mmHG Vent. Rate : 076 BPM Atrial Rate : 076 BPM P-R Int : 158 ms QRS Dur : 078 ms QT Int : 416 ms P-R-T Axes : 019 013 049 degrees QTc Int : 468 ms Normal sinus rhythm Normal ECG Confirmed by CHING OZUNA, KRISTEN ([id number]), editorial specialist HARSHA GUSTAFSON ([id number]) on 07/06/2020 1:42:31 PM Referred By: CHELA Confirmed By:KRISTEN FLOWER MD
--- NOTE | 2020-07-04 14:52 | RAD_ITS ---
STUDY: X-RAY CHEST REASON FOR EXAM: Female, 65 years old. chest pain pt was cleaning kitchen and started with dizziness and soon after CP. states she has GERD and related the CP to that. TECHNIQUE: AP COMPARISON: 12/09/2019 FINDINGS: The lungs are clear and expanded. There is no demonstrated pleural abnormality. Normal size heart. Normal mediastinum and dave. Normal visualized pulmonary arteries. Atherosclerosis of the aortic arch. No acute bony process. Stable old posterior rib fracture. There is no demonstrated abnormality of the visualized soft tissue structures of the upper abdomen. RAD/Chest 1 View (Portable) IMPRESSION: Nonacute portable x-ray examination of the chest. Electronically Signed: Marco Pyle MD ([place]) at 15:05 EDT , Service support ,
[2020-07-04] MEDS: 0.9% Normal Saline 1,000 ML 1000 ML IV (14:56)
[2020-07-04 14:58] VITALS: BP 134/67; BP 135/79; BP 143/75; PULSE 66; PULSE 77
[2020-07-04 15:08] LABS: Absolute Lymphocyte Count 4.23 X10^3/uL (0.83-4.51); Absolute Neutrophil Count 6.7 X10^3/uL (2.0-7.7); Basophil# 0.08 X10^3/uL; Basophil% 0.7 % (0-1); Eosinophil# 0.26 X10^3/uL; Eosinophils% 2.1 % (0-5); Hematocrit 39.1 % (37-47); Hemoglobin 12.2 g/dL (12.0-15.0); Lymphocyte # 4.23 X10^3/ul (4.0); Lymphocyte % 34.8 % (19-41); Mean Corp Hgb Conc 31.2 g/dL (32-36); Mean Corpuscular Hgb 26.8 pg (27.0-32.0); Mean Corpuscular Volume 85.9 fL (81-99); Mean Platelet Vol. 9.3 fl (6.2-12.0); Monocyte% 6.6 % (0-10); NRBC Flagged by Analyzer 0 % (0-5); Neutrophil # 6.72 X10^3/uL (2.7-7.7); Neutrophil % 55.1 % (47-70); Platelet Count 398 K/mm3 (150-450); RBC Distribution Width CV 15.4 % (11.6-14.6); RBC Distribution Width SD 48.4 fl (35.1-43.9); Red Blood Count 4.55 M/mm3 (4.2-5.4); White Blood Count 12.2 K/mm3 (4.4-11.0)
[2020-07-04 15:21] LABS: AST(SGOT) 11 U/L (15-37); Alanine Aminotransfer ALT/SGPT 15 U/L (13-56); Albumin, Serum 3.2 g/dL (3.2-5.0); Alkaline Phosphatase 87 U/L (45-117); Anion Gap 6 (5-15); BUN 13 mg/dL (7-18); BUN/Creat Ratio 15.9 RATIO (10-20); Calcium,Total 8.5 mg/dL (8.5-10.1); Chloride 107 mmol/L (98-107); Creatinine, Serum 0.82 mg/dL (0.55-1.02); EST Glomerular Filtration Rate 74 mL/min (>60); Est Glom Filt Rate - Afr Amer 90 mL/min (>60); Estimated Creatinine Clearance 55.83 ml/min; Globulin 3.2 g/dL (2.2-4.2); Glucose 99 mg/dL (74-106); Potassium 3.7 mmol/L (3.5-5.1); Protein, Total 6.4 g/dL (6.4-8.2); Sodium Level 142 mmol/L (136-145)
--- NOTE | 2020-07-04 15:38 | ED.VIS.GEN ---
History of Present Illness Informant: Patient Narrative: 65-year-old female presents for the evaluation of lightheadedness and chest pain. Patient states that she got up today was feeling in her normal state of health. She started to clean for the past 3 hours and started to feel lightheaded. No sense that the room is spinning. She states that she tried to eat some liver but did not help her feel any better. She states then she got a anterior chest discomfort which she thinks may be related to reflux. After 3 hours she decided to come to emergency department. She currently denies any chest pain. No shortness of breath no fevers. No bowel or bladder symptoms. No vertiginous symptoms. Her biggest complaint right now is feeling fatigued with lightheadedness. <Tenzin Juan - Last Filed: 07/04/20 16:02> <Roslyn Herrera - Last Filed: 07/04/20 16:35> Chief Complaint: Chest Pain - Past Medical History (1) Anxiety Status: Chronic (2) Asthma Status: Chronic (3) Chronic back pain Status: Chronic (4) Depression Status: Chronic (5) GERD (gastroesophageal reflux disease) Status: Chronic (6) HTN (hypertension) Status: Chronic (7) Hypothyroidism Status: Chronic (8) RAJNI (obstructive sleep apnea) Status: Chronic (9) Pulmonary hypertension Status: Chronic Comment: RVSP 30 mmHg <Tenzin Juan - Last Filed: 07/04/20 16:02> Past Medical History Surgical History: cholecystectomy, herniorrhaphy, hysterectomy, - - back Smoking Status: Never smoker Alcohol: None Drugs: None - Family History Maternal Family History: Family History (Last Reviewed 09/08/17 @ 16:02 by Lillian Cotton NP, MANAGER SOCIAL RESPONSIBILITY-C) Father Cancer Mother Cancer Sister Cancer Brother Cancer Family History: Reports: No pertinent history Paternal Family History: Family History (Last Reviewed 09/08/17 @ 16:02 by Lillian Cotton NP, MANAGER SOCIAL RESPONSIBILITY-C) Father Cancer Mother Cancer Sister Cancer Brother Cancer Family History: Reports: No pertinent history Sibling Family History: Family History (Last Reviewed 09/08/17 @ 16:02 by Lillian Cotton NP, MANAGER SOCIAL RESPONSIBILITY-C) Father Cancer Mother Cancer Sister Cancer Brother Cancer Family History: Reports: Heart Disease - She has a brother who dropped suddenly about taking a walk. He was 63 YO. <Barker Ten MileTenzin qureshi - Last Filed: 07/04/20 16:02> - Family History Maternal Family History: Family History (Last Reviewed 09/08/17 @ 16:02 by Lillian Cotton MANAGER SOCIAL RESPONSIBILITY, MANAGER SOCIAL RESPONSIBILITY-C) Father Cancer Mother Cancer Sister Cancer Brother Cancer Paternal Family History: Family History (Last Reviewed 09/08/17 @ 16:02 by Lillian Cotton MANAGER SOCIAL RESPONSIBILITY, MANAGER SOCIAL RESPONSIBILITY-C) Father Cancer Mother Cancer Sister Cancer Brother Cancer Sibling Family History: Family History (Last Reviewed 09/08/17 @ 16:02 by Lillian Cotton MANAGER SOCIAL RESPONSIBILITY, MANAGER SOCIAL RESPONSIBILITY-C) Father Cancer Mother Cancer Sister Cancer Brother Cancer <HerreraApoloniaRoslyn - Last Filed: 07/04/20 16:35> - Allergies and Home Meds Allergies/Adverse Reactions: Allergies lisinopril Adverse Reaction (Verified 07/04/20 14:25) Other Primary Care Physician: Olivia Gates DO [Primary Care Provider] - 3-5 Days Review of Systems General: Reports: Malaise, - - Lightheadedness. Denies: Chills, Fever, Sweats Eyes: Denies: Visual changes - bilaterally, Diplopia ENT: Denies: Rhinorrhea, Sore throat Cardiovascular: Reports: Chest pain. Denies: Palpitations Respiratory: Denies: Dyspnea, Cough, Dyspnea on exertion Gastrointestinal: Denies: Abdominal pain, Nausea, Vomiting, Diarrhea, Melena, Hematochezia Genitourinary: Denies: Dysuria, Hematuria, Frequency Musculoskeletal: Denies: Back pain, Extremity Pain Skin: Denies: Rash, Wounds Neurological: Denies: Headache, Weakness, Numbness <Tenzin Juan - Last Filed: 07/04/20 16:02> Physical Exam Vital Signs/Narrative: Vital Signs Temp Pulse Pulse Pulse Pulse Resp BP 07/04/20 14:58 66 77 77 07/04/20 14:27 97.8 F 75 16 134/73 H BP BP BP Pulse Ox 07/04/20 14:58 134/67 H 143/75 H 135/79 H 07/04/20 14:27 96 Inital Vital Signs reviewed: Yes General: Well nourished, Well developed, No Acute Distress Head: Normocephalic, Atraumatic Eyes: Perrl, EOMI ENT: Moist mucous membranes, No rhinorrhea Neck: Supple, Nontender Cardiovascular: Regular rate, Regular rhythm, No murmurs Respiratory: No distress, CTA bilaterally, Chest nontender Abdomen: Soft, Nontender, Nondistended, Normal bowel sounds Back: Nontender, Normal Inspection Extremities: Nontender, No edema Skin: Normal color, No rash Neurological: Alert, Oriented x3, Cranial nerves II-XII grossly intact, Normal Strength, Normal Sensation Psychological: Normal affect, Normal Mood <Tenzin Juan - Last Filed: 07/04/20 16:02> Vital Signs/Narrative: Vital Signs Temp Pulse Pulse Pulse Pulse Resp BP 07/04/20 16:00 61 16 154/86 H 07/04/20 14:58 66 77 77 07/04/20 14:27 97.8 F 75 16 134/73 H BP BP BP Pulse Ox 07/04/20 16:00 97 07/04/20 14:58 134/67 H 143/75 H 135/79 H 07/04/20 14:27 96 <Roslyn Herrera - Last Filed: 07/04/20 16:35> Diagnostic/Tx/Re-eval Clinical Impression(s) from Imaging Studies Chest X-Ray 07/04/20 14:52 IMPRESSION: Nonacute portable x-ray examination of the chest. Electronically Signed: Marco Pyle MD ([place]) at 15:05 EDT , Service support , Laboratory Last Values WBC 12.2 K/mm3 (4.4-11.0) H 07/04/20 14:30 RBC 4.55 M/mm3 (4.2-5.4) 07/04/20 14:30 Hgb 12.2 g/dL (12.0-15.0) 07/04/20 14:30 Hct 39.1 % (37-47) 07/04/20 14:30 MCV 85.9 fL (81-99) 07/04/20 14:30 MCH 26.8 pg (27.0-32.0) L 07/04/20 14:30 MCHC 31.2 g/dL (32-36) L 07/04/20 14:30 RDW Std Deviation 48.4 fl (35.1-43.9) H 07/04/20 14:30 RDW Coeff of Patrick 15.4 % (11.6-14.6) H 07/04/20 14:30 Plt Count 398 K/mm3 (150-450) 07/04/20 14:30 MPV 9.3 fl (6.2-12.0) 07/04/20 14:30 Immature Gran % (Auto) 0.700 % (0.0-0.9) 07/04/20 14:30 Neut % (Auto) 55.1 % (47-70) 07/04/20 14:30 Lymph % (Auto) 34.8 % (19-41) 07/04/20 14:30 [place] % (Auto) 6.6 % (0-10) 07/04/20 14:30 Eos % (Auto) 2.1 % (0-5) 07/04/20 14:30 Baso % (Auto) 0.7 % (0-1) 07/04/20 14:30 Absolute Neuts (auto) 6.7 X10^3/uL (2.0-7.7) 07/04/20 14:30 Absolute Lymphs (auto) 4.23 X10^3/uL (0.83-4.51) 07/04/20 14:30 Nucleated RBC % 0 % (0-5) 07/04/20 14:30 Sodium 142 mmol/L (136-145) 07/04/20 14:30 Potassium 3.7 mmol/L (3.5-5.1) 07/04/20 14:30 Chloride 107 mmol/L (98-107) 07/04/20 14:30 Carbon Dioxide 29.0 mmol/L (21.0-32.0) 07/04/20 14:30 Anion Gap 6 (5-15) 07/04/20 14:30 BUN 13 mg/dL (7-18) 07/04/20 14:30 Creatinine 0.82 mg/dL (0.55-1.02) 07/04/20 14:30 Estim Creat Clear Calc 55.83 ml/min 07/04/20 14:30 Est GFR (MDRD) Af Amer 90 mL/min (>60) 07/04/20 14:30 Est GFR (MDRD) Non-Af 74 mL/min (>60) 07/04/20 14:30 BUN/Creatinine Ratio 15.9 RATIO (10-20) 07/04/20 14:30 Glucose 99 mg/dL (74-106) 07/04/20 14:30 Calcium 8.5 mg/dL (8.5-10.1) 07/04/20 14:30 Total Bilirubin 0.10 mg/dL (0.20-1.00) L 07/04/20 14:30 AST 11 U/L (15-37) L 07/04/20 14:30 ALT 15 U/L (13-56) 07/04/20 14:30 Alkaline Phosphatase 87 U/L (45-117) 07/04/20 14:30 Troponin I < 0.015 ng/mL (<0.045) 07/04/20 14:30 Total Protein 6.4 g/dL (6.4-8.2) 07/04/20 14:30 Albumin 3.2 g/dL (3.2-5.0) 07/04/20 14:30 Globulin 3.2 g/dL (2.2-4.2) 07/04/20 14:30 Albumin/Globulin Ratio 1.0 RATIO (0.9-2.4) 07/04/20 14:30 - EKG Initial EKG Interpretation: Sinus Rhythm - EKG demonstrates a normal sinus rhythm at a rate of 76 without ectopy or concerning features of ACS - Medical Decision Making My interpretation of the portable chest x-ray is no acute process. Normal mediastinum. Patient has had no events on the monitor. She received a liter of IV fluids. Her symptoms are very nonspecific. Her biggest symptom that she currently is experiencing is lightheadedness and fatigue. She has normal vital signs. Essentially normal laboratory values EKG monitoring and chest x-ray. Orthostatics are negative. Patient is requesting a head CT as she states that she has been intermittently having headaches and is wondering if something bad is happening and there. I think there is low likelihood of finding anything of clinical importance. CT is pending. Pending a negative head CT, I am not seeing evidence of ACS, dissection, embolism, or other life-threatening diagnoses. Plan will be to discharge the patient home. Instructions to eat and rest. Follow-up primary care return if worsening or concerns <Tenzin Juan - Last Filed: 07/04/20 16:02> - Medical Decision Making Patient signed out to me pending CT scan of the head. CT returns with final impression of no acute intracranial hemorrhage or mass-effect. Test results discussed with the patient and she will be discharged home per Dr. Juan's instructions. <Roslyn Herrera - Last Filed: 07/04/20 16:35> ED Disposition <Tenzin Juan - Last Filed: 07/04/20 16:02> <Roslyn Herrera - Last Filed: 07/04/20 16:35> - Plan for ED Patient: Disposition: Home or Assisted Living Diagnosis: Light-headed feeling, Fatigue Instructions: ED Dizziness, Uncertain Cause Referrals: Olivia Gates DO [Primary Care Provider] - 3-5 Days
[2020-07-04 15:39] LABS: Red Blood Cells-Urine 0 SEEN /hpf (0-5)
[2020-07-04 15:47] LABS: Color, Urine Yellow (Yellow); Glucose, Dipstick Normal (Normal); Ketone-Dipstick Negative (Negative); Leukocyte Esterase-Dipstick 25 /ul (Negative); Nitrite-Dipstick Negative (Negative); Occult Blood-Urine Negative /ul (Negative); Protein-Dipstick Negative (Negative); Specific Gravity, Urine 1.015 (1.002-1.030); Urine Bilirubin Dipstick Negative (Negative); Urine Clarity Sl. Cloudy (Clear); Urine Urobilinogen Normal (Normal)
[2020-07-04 16:00] VITALS: BP 154/86; PULSE 61; RESP 16; O2SAT 97
[2020-07-04 16:00] LABS: Bacteria RARE /hpf (None Seen); Mucous, Urine 1+ /hpf (<or=2+); Squamous Epithelial Cells - UA 0-5 SEEN /hpf (5-10); White Blood Cells 0-5 SEEN /hpf (0-5)
--- NOTE | 2020-07-04 16:01 | CT_ITS ---
STUDY: CT BRAIN WITHOUT CONTRAST REASON FOR EXAM: Female, 65 years old. dizziness RADIATION DOSAGE (If Supplied By Facility): CTDIvol = ( 44.99 ) mGy, DLP = ( 745.49 ) mGycm TECHNIQUE: Transaxial CT imaging of the brain was performed without administration of intravenous contrast material. Individualized dose optimization techniques were used for this CT. COMPARISON: 05/20/2017 FINDINGS: Normal soft tissue structures. Normal calvarium. Normal size ventricles and extra-axial spaces for the patient''s age. Normal white matter tracts of the cerebral hemispheres. Normal basal ganglia and thalami. Normal brainstem. Normal cerebellum. There is no intracranial hemorrhage. There are no findings of an acute ischemic infarction. Normal visualized paranasal sinuses. CT/Brain/Head without Contrast IMPRESSION: No acute intracranial hemorrhage or mass effect. Electronically Signed: Marco Pyle MD ([place]) at 16:33 EDT , Service support ,
[2020-07-04 16:57] VITALS: BP 154/86; PULSE 61; RESP 14; O2SAT 95
== END 2020-07-04 16:58 | disposition home or self-care (01) ==
PROVIDERS: Emergency Provider Emergency Medicine; PCP Family Medicine
DX: R42 Dizziness and giddiness (principal); R53.83 Other fatigue; R07.89 Other chest pain; I27.20 Pulmonary hypertension, unspecified; J45.909 Unspecified asthma, uncomplicated; I10 Essential (primary) hypertension; E03.9 Hypothyroidism, unspecified; M54.9 Dorsalgia, unspecified; G89.29 Other chronic pain; G47.33 Obstructive sleep apnea (adult) (pediatric); K21.9 Gastro-esophageal reflux disease without esophagitis; F32.9 Major depressive disorder, single episode, unspecified; F41.9 Anxiety disorder, unspecified; Z79.899 Other long term (current) drug therapy
CPT/HCPCS: 70450; 71045; 80053; 81001; 84484; 85025; 93005; 96360; 99285; J7030; A4216

== ENCOUNTER → 2020-08-18 10:10 | Outpatient (CLI) | payer MEDICARE, MEDICAID, SELFPAY ==
--- NOTE | 2020-08-18 10:14 | NM_ITS ---
CLINICAL: 65-year-old female with reported history of abdominal pain and bloating. SEMI-SOLID PHASE 99m Tc SULFUR COLLOID GASTRIC EMPTYING STUDY COMPARISON: None available FINDINGS: The patient was administered approximately 1.0 mCi of 99m Tc sulfur colloid mixed with oatmeal and consumed per os. Image acquisitions in the anterior-posterior projections for a total of 60 minutes. There is prompt visualization of the stomach. There is no gastroesophageal reflux identified. The T ? linear fit was calculated to be 32.26 minutes, (Normal: 12-56 minutes). NM/Gastric Emptying Study IMPRESSION: 1. NORMAL 99m Tc sulfur colloid semi-solid phase (oatmeal) gastric emptying imaging examination. A. There is normal and preserved semi-solid phase gastric emptying compared to normal controls. (Matthew et al, J Nucl Med Tech 38: 186, 2010). Electronically Signed: Eamon Decker DO at 22:16 EDT Tel , Service support ,
== END ==
PROVIDERS: PCP Family Medicine; Referring Provider Family Medicine; Visit Provider Family Medicine
DX: R14.0 Abdominal distension (gaseous) (principal); R10.9 Unspecified abdominal pain
CPT/HCPCS: 78264; A9541

== ENCOUNTER → 2020-09-08 13:23 | Outpatient (CLI) | payer MEDICARE, MEDICAID, SELFPAY ==
--- NOTE | 2020-09-08 13:24 | CT_ITS ---
STUDY: CT ABDOMEN AND PELVIS WITHOUT CONTRAST REASON FOR EXAM: Female, 65 years old. ABDOMINAL PAIN UPPER AND LOWER RIGHT SIDE RADIATION DOSAGE (If Supplied By Facility): CTDIvol = ( 31.66 ) mGy, DLP = ( 1573.88 ) mGycm TECHNIQUE: Transaxial images were obtained from the dome of the diaphragm to the symphysis pubis without oral contrast, and without intravenous contrast. Sagittal and coronal images were reconstructed. Individualized dose optimization techniques were used for this CT. COMPARISON: CT scan of the chest dated 07/13/2017 FINDINGS: The study is limited due to lack of intravenous contrast. Groundglass densities in the left lung are again noted. There are new pleural-based nodular densities in the right middle and lower lobes, measuring up to 0.5 cm on image #15. There is a probably of infectious etiology. Metastases cannot be excluded. Unremarkable liver, spleen, pancreas, and adrenals on this unenhanced study. No radiopaque urolithiasis or hydroureteronephrosis on either side. 3.7 cm cyst in the posterolateral cortex of the right kidney. Gallbladder not seen and likely removed. Normal appendix. Moderate amount of retained stool in the colon with no evidence of bowel obstruction. No free air or free fluid. No adenopathy. Vascular calcification with no abdominal aortic aneurysm. Sections through the pelvis demonstrate evidence of prior hysterectomy. Urinary bladder incompletely distended. Multilevel thoracolumbar spondylosis is seen. There has been prior L4-L5 laminectomy with L4-S1 posterior pedicle screw fusion. 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 CT/Abdomen/Pel W ORAL Cont Only IMPRESSION: Interval development of small pleural-based nodular densities in the right lung, likely of infectious etiology. Metastases cannot be excluded. Clinical correlation and follow-up CT scan in 3 months may be obtained. Stable groundglass densities in the left lung. Moderate amount of retained stool in the colon with no evidence of bowel obstruction. Normal appendix. No radiopaque urolithiasis or hydroureteronephrosis on either side. Electronically Signed: Heuy Baker MD at 17:18 EDT Tel , Service support ,
== END ==
PROVIDERS: PCP Family Medicine; Referring Provider Family Medicine; Visit Provider Family Medicine
DX: R10.11 Right upper quadrant pain (principal); R10.31 Right lower quadrant pain; R11.10 Vomiting, unspecified
CPT/HCPCS: 74176

== ENCOUNTER → 2020-10-05 07:47 | Outpatient (CLI) | payer MEDICARE, MEDICAID, SELFPAY ==
--- NOTE | 2020-10-05 07:48 | CT_ITS ---
STUDY: CT CHEST WITHOUT CONTRAST REASON FOR EXAM: Female, 65 years old. NODULES RT LUNG RADIATION DOSAGE (If Supplied By Facility): CTDIvol = ( 18.27 ) mGy, DLP = ( 602.76 ) mGycm TECHNIQUE: Transaxial imaging was performed without the administration of intravenous contrast material. Multiplanar coronal and sagittal images were reformatted. Individualized dose optimization techniques were used for this CT. COMPARISON: Comparison is made with prior study dated 07/13/2017. FINDINGS: Stable small benign appearing bilateral axillary lymph nodes. Stable appearance of the increased interstitial septal markings with evidence of groundglass appearance in the upper lobes bilaterally as well as in the left lower lobe. This most likely represents areas of scarring. There is been essentially no change as compared to prior study. There is no demonstrated pleural abnormality. Normal heart and pericardium. There are multiple small lymph nodes within the mediastinum, which are normal in size and morphology most compatible with reactive lymph hyperplasia. Normal hilar regions. Normal unenhanced pulmonary arteries. There is atherosclerotic calcification of the aortic arch . There are multi-level degenerative changes of the thoracic spine. There is no demonstrated abnormality of the visualized upper abdomen. CT/Chest without Contrast IMPRESSION: Stable examination. Electronically Signed: Siddhartha Butterfield MD at 12:59 EDT , Service support ,
== END ==
PROVIDERS: PCP Family Medicine; Referring Provider Family Medicine; Visit Provider Family Medicine
DX: R93.89 Abnormal findings on diagnostic imaging of other specified body structures (principal)
CPT/HCPCS: 71250

== ENCOUNTER 2020-12-01 18:58 | Emergency (ER) | payer MEDICARE, MEDICAID, SELFPAY ==
[2020-12-01 19:00] VITALS: BP 143/109; PULSE 88; RESP 16; TEMP 36.2; O2SAT 98; BMI 38.2
--- NOTE | 2020-12-01 19:21 | EX.ED.UPPERE ---
HPI History of Present Illness HPI Narrative: Patient presents with laceration to her left hand that occurred today. Patient states she was using scissors when she accidentally cut herself. Patient states the tip of the scissors went into her skin. Patient describes her pain as throbbing. Patient states her pain is worse with movement. Patient denies any paresthesias or weakness. Patient thinks her last tetanus was possibly between 5 and 10 years ago but it is not sure. Chief Complaint: Laceration Informant: patient Occured/Mechanism Mechanism/Context: Yes puncture wound Comment: Cut with tip of scissors Onset/Context/Timing Onset: Today Context: Sudden Onset Timing: Continuous Quality of Pain: Throbbing Worsened by: Movement Relieved by: Nothing Associated Symptoms Associated Symptoms: Negative for Parasthesia, Weakness and Loss of Funtion Narrative Tetanus Immunization: 5-10 years (Unsure) [facility] Medical History Anxiety Asthma Bronchitis Chronic back pain Depression GERD (gastroesophageal reflux disease) HTN (hypertension) Hypothyroidism RAJNI (obstructive sleep apnea) Home Medications paroxetine HCl [Paxil] 40 mg PO DAILY 01/29/13 [History Last Taken 06/16/18] trazodone 100 mg PO QHS 01/29/13 [History Last Taken 06/16/18] esomeprazole magnesium [Nexium] 40 mg PO BID 05/16/14 [History Last Taken 06/16/18] lorazepam 1 mg PO UD 10/11/16 [History Last Taken 06/16/18] cholecalciferol (vitamin D3) 50,000 units PO KEITA 05/20/17 [History Last Taken 06/16/18] albuterol sulfate 1 - 2 puff INHALATION Q6H PRN PRN #1 inhaler 05/23/17 [Rx Last Taken 06/16/18] hydrocodone-acetaminophen [[place]] 1 ea PO TID PRN 06/22/17 [History Last Taken 06/16/18] Pulmicort Flexhaler 2 puff INHALATION BID 12/13/17 [History Last Taken 06/16/18] levothyroxine 50 mcg PO DAILY 12/13/17 [History Last Taken 06/16/18] losartan 50 mg PO DAILY 07/04/20 [History Last Taken Unknown] montelukast 10 mg PO DAILY 07/04/20 [History Last Taken Unknown] Allergy/AdvReac Type Severity Reaction Status Date / Time lisinopril AdvReac Other Verified 12/01/20 19:00 Family History (Reviewed 09/08/17 @ 16:02 by Lillian Cotton NURSING HOME ASSISTANT ADMINISTRATOR, NURSING HOME ASSISTANT ADMINISTRATOR-C) Father Cancer Mother Cancer Sister Cancer Brother Cancer Surgical History History of back surgery History of cholecystectomy History of hernia repair History of hysterectomy Social History Smoking Status: Never smoker second hand exposure: No alcohol intake: never substance use type: does not use ROS ROS ED Constitutional Constitutional ED: Denies chills or fever(s) Eyes Eyes: Denies blurry vision or change in vision ENT ENT ED: Denies rhinorrhea or sore throat Cardiovascular Cardiovascular: Denies chest pain or palpitations Respiratory/Chest Respiratory/Chest: Denies cough or dyspnea Gastrointestinal Gastrointestinal: Denies nausea or vomiting Genitourinary Genitourinary ED: Denies dysuria or hematuria Musculoskeletal Musculoskeletal: Reports back pain; Denies neck pain Integumentary Denies abscess or rash Neurologic Neurologic: Reports headache(s); Denies weakness Allergic/Immunologic Allergic/Immunologic ED: Denies mouth swelling or urticaria EXAM Physical Exam Const Vital Signs: 12/01/20 19:00 Temperature 97.2 F L Temperature Source Temporal Pulse Rate 88 Respiratory Rate 16 Blood Pressure 143/109 H Blood Pressure Mean 120 Pulse Ox 98 Oxygen Delivery Method Room Air Positive well nourished, well developed and obese General Appearance ED: well developed Nutritional Appearance: obese Neck full ROM and supple Neuro oriented x3, CN's II-XII intact bilaterally, moves all extremities, no focal motor deficits and no sensory deficits noted Sensorium / Orientation: alert Skin Skin Narrative: There is a 0.4 cm full-thickness linear laceration over the volar aspect of the left thumb over the MP joint. There is minimal gapping of the wound margins. There is no active bleeding noted. There is no bony crepitance or step-off. Sensation was intact to light touch in all digits. Capillary refill was less than 2 seconds in all digits. Radial pulses are equal bilaterally. There is full range of motion. MDM MDM MDM Narrative Medical decision making narrative: X-rays of the left hand were obtained. There are 3 views. On my interpretation, there is no acute fracture. There is no dislocation. There is no soft tissue swelling. There are no foreign bodies noted. Radiologist also interpreted the x-rays and agrees. Bacitracin dressing was applied. Patient was instructed to follow-up with her primary care physician in 5 to 7 days. Patient understood and was agreeable with the plan. All questions were answered. Discharge Plan Triage Chief Complaint: Laceration ED Provider: Nikolay Abdalla Dx/Rx/DC Orders Clinical Impression: Laceration of left hand Instructions: ED Laceration Small or ... Prescriptions: No Action paroxetine HCl [Paxil] 40 MG tablet 40 mg PO DAILY RF: 0 trazodone 50 MG tablet 100 mg PO QHS RF: 0 esomeprazole magnesium [Nexium] 40 MG capsule 40 mg PO BID RF: 0 lorazepam 1 MG tablet 1 mg PO UD RF: 0 cholecalciferol (vitamin D3) 50,000 UNIT capsule 50,000 units PO KEITA RF: 0 albuterol sulfate 1 INHALER inhaler 1 - 2 puff INHALATION Q6H PRN PRN (Reason: Asthma) Qty: 1 RF: 0 hydrocodone-acetaminophen [[place]] 1 EACH tablet 1 ea PO TID PRN (Reason: Pain) RF: 0 levothyroxine 50 MCG tablet 50 mcg PO DAILY RF: 0 Pulmicort Flexhaler 1 PUFF inhaler 2 puff inhalation BID RF: 0 losartan 50 MG tablet 50 mg PO DAILY RF: 0 montelukast 10 MG tablet 10 mg PO DAILY RF: 0 Primary Care Provider: Olivia Gates Referrals: Olivia Gates DO [Primary Care Provider] - 5-7 Days Disposition Disposition: Home, Self Care Discharge Date/Time: 12/01/20 21:22
--- NOTE | 2020-12-01 19:28 | RAD_ITS ---
STUDY: X-RAY - LEFT HAND REASON FOR EXAM: Female, 65 years old. Injury/Pain TECHNIQUE: 3 view(s) of the hand. COMPARISON: None. FINDINGS: No acute fracture or dislocation. Prior internal fixation of the distal radius. Old healed fracture of the ulnar styloid. No destructive bone changes. Joint spaces are well-maintained. Normal alignment. Soft tissues are unremarkable. No radiopaque foreign body or soft tissue gas. RAD/Hand Min 3 Views IMPRESSION: No acute findings. Electronically Signed: Evon Phillips MD at 20:33 EDT Tel , Service support ,
[2020-12-01] MEDS: Diphth,Pertuss(Acell),Tet Vac 0.5 ML Vial IM (19:31)
[2020-12-01 21:01] VITALS: RESP 16
== END 2020-12-01 21:22 | disposition home or self-care (01) ==
PROVIDERS: Emergency Provider Emergency Medicine; PCP Family Medicine
DX: S61.412A Laceration without foreign body of left hand, initial encounter (principal); S61.432A Puncture wound without foreign body of left hand, initial encounter; Z23 Encounter for immunization; W26.8XXA Contact with other sharp object(s), not elsewhere classified, initial encounter; Y93.9 Activity, unspecified; Y92.9 Unspecified place or not applicable; Y99.9 Unspecified external cause status; I10 Essential (primary) hypertension; E03.9 Hypothyroidism, unspecified; J45.909 Unspecified asthma, uncomplicated; M54.9 Dorsalgia, unspecified; G89.29 Other chronic pain; G47.33 Obstructive sleep apnea (adult) (pediatric); K21.9 Gastro-esophageal reflux disease without esophagitis; F32.9 Major depressive disorder, single episode, unspecified; F41.9 Anxiety disorder, unspecified; E66.9 Obesity, unspecified; Z79.51 Long term (current) use of inhaled steroids; Z79.890 Hormone replacement therapy; Z79.899 Other long term (current) drug therapy
CPT/HCPCS: 73130; 90471; 90715; 99282

== ENCOUNTER 2021-04-12 17:28 | Emergency (ER) | payer MEDICARE, MEDICAID, SELFPAY ==
[2021-04-12 17:31] VITALS: BP 156/87; PULSE 90; RESP 6; TEMP 36.7; O2SAT 96; BMI 38.6
[2021-04-12 19:04] LABS: Absolute Lymphocyte Count 2.79 X10^3/uL (0.83-4.51); Absolute Neutrophil Count 7.8 X10^3/uL (2.0-7.7); Basophil# 0.06 X10^3/uL; Basophil% 0.5 % (0-1); Eosinophil# 0.13 X10^3/uL; Eosinophils% 1.1 % (0-5); Hematocrit 39.9 % (37-47); Hemoglobin 12.6 g/dL (12.0-15.0); Lymphocyte # 2.79 X10^3/ul (0.83-4.51); Lymphocyte % 23.6 % (19-41); Mean Corp Hgb Conc 31.6 g/dL (32-36); Mean Corpuscular Hgb 25.9 pg (27.0-32.0); Mean Corpuscular Volume 82.1 fL (81-99); Mean Platelet Vol. 9.3 fl (6.2-12.0); Monocyte# 0.96 X10^3/uL; Monocyte% 8.1 % (0-10); NRBC Flagged by Analyzer 0 % (0-5); Neutrophil # 7.79 X10^3/uL (2.7-7.7); Neutrophil % 66.1 % (47-70); Platelet Count 352 K/mm3 (150-450); RBC Distribution Width CV 15.9 % (11.6-14.6); RBC Distribution Width SD 47.4 fl (35.1-43.9); Red Blood Count 4.86 M/mm3 (4.2-5.4); White Blood Count 11.8 K/mm3 (4.4-11.0)
[2021-04-12 19:27] LABS: Anion Gap 9 (5-15); BUN 14 mg/dL (7-18); BUN/Creat Ratio 15.3 RATIO (10-20); Calcium,Total 9.8 mg/dL (8.5-10.1); Chloride 104 mmol/L (98-107); Creatinine, Serum 0.92 mg/dL (0.55-1.02); EST Glomerular Filtration Rate 65 mL/min (>60); Est Glom Filt Rate - Afr Amer 79 mL/min (>60); Estimated Creatinine Clearance 51.24 ml/min; Glucose 129 mg/dL (74-106); Potassium 3.3 mmol/L (3.5-5.1); Sodium Level 139 mmol/L (136-145)
[2021-04-12 21:43] VITALS: RESP 14; O2SAT 96; O2SAT 97
[2021-04-12 21:47] VITALS: BP 157/63
[2021-04-12 21:52] VITALS: O2SAT 97
--- NOTE | 2021-04-12 22:04 | RAD_ITS ---
STUDY: X-RAY CHEST REASON FOR EXAM: Female, 66 years old. Cough. Fever. TECHNIQUE: PA and lateral COMPARISON: CT chest 10/05/2020. Several prior chest radiographs most recent 07/04/2020. FINDINGS: No evidence of pneumonia, pulmonary edema, pneumothorax or pleural effusion. Chronic interstitial lung disease bilaterally is similar to prior. Cardiac silhouette, hilar and mediastinal contours with no acute findings. Heart size normal. Atherosclerosis of the thoracic aorta. Degenerative osseous changes with no acute osseous abnormality. RAD/Chest PA and Lateral IMPRESSION: No acute findings. Chronic interstitial lung disease. Electronically Signed: Lázaro Schaefer MD at 0:13 EST Tel , Service support ,
[2021-04-12] MEDS: Ipratropium/Albuterol Sulfate 3 ML AMPUL.NEB INHALATION (22:38)
[2021-04-12 22:39] VITALS: PULSE 78; RESP 18
[2021-04-13 00:16] VITALS: O2SAT 87
[2021-04-13 00:18] VITALS: O2SAT 95
[2021-04-13 00:26] VITALS: BP 114/74; PULSE 74; RESP 17; TEMP 36.8; O2SAT 98
--- NOTE | 2021-04-13 00:52 | EDS_ITS ---
HPI History of Present Illness Chief Complaint: Cold Sx Narrative Narrative: Patient is a 66-year-old female who states that she has had 3 to 5 days of congestion cough and mild shortness of breath. She denies any known sick contacts but based on her symptoms is concerned she is developing infection and therefore comes in for evaluation [facility] Medical History (Updated 04/13/21 @ 00:[address] Ildefonso Vázquez, DO) Anxiety Asthma Bronchitis Chronic back pain Depression GERD (gastroesophageal reflux disease) HTN (hypertension) Hypothyroidism RAJNI (obstructive sleep apnea) Home Medications paroxetine HCl [Paxil] 40 mg PO DAILY 01/29/13 [History Last Taken 06/16/18] trazodone 100 mg PO QHS 01/29/13 [History Last Taken 06/16/18] esomeprazole magnesium [Nexium] 40 mg PO BID 05/16/14 [History Last Taken 06/16/18] lorazepam 1 mg PO UD 10/11/16 [History Last Taken 06/16/18] cholecalciferol (vitamin D3) 50,000 units PO KEITA 05/20/17 [History Last Taken 06/16/18] albuterol sulfate 1 - 2 puff INHALATION Q6H PRN PRN #1 inhaler 05/23/17 [Rx Last Taken 06/16/18] hydrocodone-acetaminophen [[place]eyton] 1 ea PO TID PRN 06/22/17 [History Last Taken 06/16/18] Pulmicort Flexhaler 2 puff INHALATION BID 12/13/17 [History Last Taken 06/16/18] levothyroxine 50 mcg PO DAILY 12/13/17 [History Last Taken 06/16/18] losartan 50 mg PO DAILY 07/04/20 [History Last Taken Unknown] montelukast 10 mg PO DAILY 07/04/20 [History Last Taken Unknown] albuterol sulfate [Ventolin HFA] 1 - 2 puff INHALATION Q4H PRN PRN #8.5 g 04/13/21 [Rx Last Taken Unknown] azelastine 2 spray INTRANASAL BID #30 ml 04/13/21 [Rx Last Taken Unknown] benzonatate 200 mg PO TID PRN #30 cap 04/13/21 [Rx Last Taken Unknown] Allergy/AdvReac Type Severity Reaction Status Date / Time lisinopril AdvReac Other Verified 04/12/21 17:32 Family History (Reviewed 09/08/17 @ 16:02 by Lillian Cotton UNDERGROUND MINE MACHINERY MECHANIC, UNDERGROUND MINE MACHINERY MECHANIC-C) Father Cancer Mother Cancer Sister Cancer Brother Cancer Surgical History History of back surgery History of cholecystectomy History of hernia repair History of hysterectomy Social History Smoking Status: Never smoker second hand exposure: No alcohol intake: never substance use type: does not use ROS ROS ED Constitutional Constitutional ED: Denies chills or fever(s) ENT ENT ED: Reports rhinorrhea and sore throat Cardiovascular Cardiovascular: Denies chest pain Respiratory/Chest Respiratory/Chest: Reports cough and dyspnea Gastrointestinal Gastrointestinal: Denies abdominal pain, diarrhea, nausea or vomiting Genitourinary Genitourinary ED: Denies dysuria Musculoskeletal Musculoskeletal: Reports myalgias Integumentary Denies rash Neurologic Neurologic: Denies headache(s) Hematologic/Lymphatic Hematologic/Lymphatic: Denies easy bleeding or easy bruising EXAM Physical Exam Const Vital Signs: 04/12/21 17:31 04/12/21 21:43 04/12/21 21:47 Temperature 98.0 F Temperature Source Oral Pulse Rate 90 Respiratory Rate 6 L 14 Respiratory Effort Respiratory Pattern Blood Pressure 156/87 H 157/63 H Blood Pressure Mean 110 94 Pulse Ox 96 97 Oxygen Delivery Method Room Air Oxygen Flow Rate (L/min) 04/12/21 21:52 04/12/21 22:39 04/13/21 00:16 Temperature Temperature Source Pulse Rate 78 Respiratory Rate 18 Respiratory Effort Normal Respiratory Pattern Normal Blood Pressure Blood Pressure Mean Pulse Ox 87 Oxygen Delivery Method Room Air Nasal Cannula Oxygen Flow Rate (L/min) 3 04/13/21 00:18 04/13/21 00:26 Temperature 98.2 F Temperature Source Temporal Pulse Rate 74 Respiratory Rate 17 Respiratory Effort Respiratory Pattern Blood Pressure 114/74 Blood Pressure Mean 87 Pulse Ox 95 98 Oxygen Delivery Method Nasal Cannula Room Air Oxygen Flow Rate (L/min) 5 Positive well nourished and well developed General Appearance ED: well developed HEENT HEENT Narrative: Nasal mucosa is hyperemic and boggy and posterior pharynx displays cobblestoning consistent with sinus drainage without airway edema or compromise Eyes PERRL and EOMs intact bilaterally Neck supple and no JVD Neck Narrative: Positive anterior cervical lymphadenopathy Resp normal respiratory effort Resp Narrative: Breath sounds are slight diminished throughout with faint expiratory wheeze in the bilateral bases but no signs of respiratory distress Effort and Inspection: other Cardio regular rate and regular rhythm GI normal to inspection, nondistended, normoactive bowel sounds, non-tender, non- distended and no masses Auscultation: normoactive bowel sounds Palpation: soft Extremity normal to inspection Extremity Narrative: No asymmetric edema no pitting edema negative Homans' sign bilaterally Neuro oriented x3 and CN's II-XII intact bilaterally Sensorium / Orientation: alert Psych mental status grossly normal Skin no rashes or lesions noted MDM MDM MDM Narrative Medical decision making narrative: Patient presented to the ER afebrile and in no acute respiratory distress. Her constellation of symptoms is viral in nature but based on her report of shortness of breath associated with this I did elect to perform a basic work. Labs and images revealed no clinically significant findings and on reevaluation patient remains in no acute distress satting well in the mid 90s on room air. Therefore should be given symptomatic medications and is otherwise safe for discharge Lab Data Attestation: I reviewed the patient's lab results. Labs: Laboratory Results - last 24 hr 04/12/21 04/12/21 18:50 18:50 WBC 11.8 H RBC 4.86 Hgb 12.6 Hct 39.9 MCV 82.1 MCH 25.9 L MCHC 31.6 L RDW Std Deviation 47.4 H RDW Coeff of Patrick 15.9 H Plt Count 352 MPV 9.3 Immature Gran % (Auto) 0.600 Neut % (Auto) 66.1 Lymph % (Auto) 23.6 [place] % (Auto) 8.1 Eos % (Auto) 1.1 Baso % (Auto) 0.5 Absolute Neuts (auto) 7.8 H Absolute Lymphs (auto) 2.79 Nucleated RBC % 0 Sodium 139 Potassium 3.3 L Chloride 104 Carbon Dioxide 26.0 Anion Gap 9 BUN 14 Creatinine 0.92 Estim Creat Clear Calc 51.24 Est GFR (MDRD) Af Amer 79 Est GFR (MDRD) Non-Af 65 BUN/Creatinine Ratio 15.3 Glucose 129 H Calcium 9.8 Radiography Diagnostic Testing: Clinical Impression(s) from Imaging Studies Chest X-Ray 04/12/21 22:04 IMPRESSION: No acute findings. Chronic interstitial lung disease. Electronically Signed: Lázaro Schaefer MD at 0:13 EST Tel , Service support , Discharge Plan Triage Chief Complaint: Cold Sx Other Complaint: Sore Throat ED Provider: Ildefonso Vázquez Dx/Rx/DC Orders Clinical Impression: Viral upper respiratory illness Instructions: ED URI, Viral W/ Wheezing (Adult) Prescriptions: New azelastine 137 mcg (0.1 %) aerosol,spray 2 spray intranasal BID Qty: 30 RF: 0 benzonatate 200 mg capsule 200 mg PO TID PRN (Reason: cough) Qty: 30 RF: 0 albuterol sulfate [Ventolin HFA] 90 mcg/actuation HFA aerosol inhaler 1 - 2 puff inhalation Q4H PRN PRN (Reason: Wheezing) Qty: 8.5 RF: 0 No Action paroxetine HCl [Paxil] 40 MG tablet 40 mg PO DAILY RF: 0 trazodone 50 MG tablet 100 mg PO QHS RF: 0 esomeprazole magnesium [Nexium] 40 MG capsule 40 mg PO BID RF: 0 lorazepam 1 MG tablet 1 mg PO UD RF: 0 cholecalciferol (vitamin D3) 50,000 UNIT capsule 50,000 units PO KEITA RF: 0 albuterol sulfate 1 INHALER inhaler 1 - 2 puff INHALATION Q6H PRN PRN (Reason: Asthma) Qty: 1 RF: 0 hydrocodone-acetaminophen [[place]ey[place]] 1 EACH tablet 1 ea PO TID PRN (Reason: Pain) RF: 0 levothyroxine 50 MCG tablet 50 mcg PO DAILY RF: 0 Pulmicort Flexhaler 1 PUFF inhaler 2 puff inhalation BID RF: 0 losartan 50 MG tablet 50 mg PO DAILY RF: 0 montelukast 10 MG tablet 10 mg PO DAILY RF: 0 Primary Care Provider: Olivia Gates Referrals: Olivia Gates DO [Primary Care Provider] - Disposition Disposition: Home, Self Care Discharge Date/Time: 04/13/21 01:22
[2021-04-13 01:21] VITALS: BP 114/70; PULSE 70; RESP 15; O2SAT 98
== END 2021-04-13 01:22 | disposition home or self-care (01) ==
PROVIDERS: Emergency Provider Emergency Medicine; PCP Family Medicine; Visit Provider Emergency Medicine
DX: J06.9 Acute upper respiratory infection, unspecified (principal); G47.33 Obstructive sleep apnea (adult) (pediatric); K21.9 Gastro-esophageal reflux disease without esophagitis; E03.9 Hypothyroidism, unspecified; I10 Essential (primary) hypertension; J45.909 Unspecified asthma, uncomplicated; Z79.899 Other long term (current) drug therapy
CPT/HCPCS: 71046; 80048; 85025; 87426; 94640; 94760; 99283; A4216

== ENCOUNTER 2021-05-22 14:14 | Emergency (ER) | payer MEDICARE, MEDICAID, SELFPAY ==
[2021-05-22 14:15] VITALS: BP 144/66
[2021-05-22 14:16] VITALS: PULSE 69; RESP 16; TEMP 37.3; O2SAT 98; BMI 39.8
--- NOTE | 2021-05-22 14:40 | EKG12_ITS ---
Test Reason : DIZZINESS Blood Pressure : / mmHG Vent. Rate : 064 BPM Atrial Rate : 064 BPM P-R Int : 168 ms QRS Dur : 070 ms QT Int : 458 ms P-R-T Axes : 027 018 045 degrees QTc Int : 472 ms Sinus rhythm with Premature atrial complexes Low voltage QRS (Limb Leads) Confirmed by ELEUTERIO OZUNA, RASHARD ([id number]), website/blog editor HARSHA GUSTAFSON ([id number]) on 05/25/2021 10:29:20 AM Referred By: TIMOTHY Confirmed By:RASHARD MCCLELLAN MD
--- NOTE | 2021-05-22 14:41 | EDS_ITS ---
HPI History of Present Illness Chief Complaint: Dizziness Informant: patient Onset/Context/Timing Onset: Today Context: Gradual Onset Timing: Intermittent Current Severity: Mild Maximum Severity: Mild Narrative Narrative: 66-year-old female history of anxiety, reflux and hypertension. Says she is intermittently felt dizzy lightheaded. Nearly fainted. Said this is been off and on for 4 years. She has had some loose stools and diarrhea recently. No melena. She denies any headache. No head trauma. No chest pain or shortness of breath. No palpitations. No abdominal pain. She denies any strokelike symptoms. She is moving her arms and legs normally. Normal speech. No visual changes. Patient states she has had these symptoms before they been worked up in the past and they could never figure out a specific cause. Prior similar symptoms: Yes Recent Illness/Hospitalization: No PFSH PFS Medical History (Updated 05/22/21 @ 15:[address] Ryan Nguyen MD) Anxiety Asthma Bronchitis Chronic back pain Depression GERD (gastroesophageal reflux disease) HTN (hypertension) Hypothyroidism RAJNI (obstructive sleep apnea) Home Medications paroxetine HCl [Paxil] 40 mg PO DAILY 01/29/13 [History Last Taken 06/16/18] trazodone 100 mg PO QHS 01/29/13 [History Last Taken 06/16/18] esomeprazole magnesium [Nexium] 40 mg PO BID 05/16/14 [History Last Taken 06/16/18] lorazepam 1 mg PO UD 10/11/16 [History Last Taken 06/16/18] cholecalciferol (vitamin D3) 50,000 units PO KEITA 05/20/17 [History Last Taken 06/16/18] albuterol sulfate 1 - 2 puff INHALATION Q6H PRN PRN #1 inhaler 05/23/17 [Rx Last Taken 06/16/18] hydrocodone-acetaminophen [[place]] 1 ea PO TID PRN 06/22/17 [History Last Taken 06/16/18] Pulmicort Flexhaler 2 puff INHALATION BID 12/13/17 [History Last Taken 06/16/18] levothyroxine 50 mcg PO DAILY 12/13/17 [History Last Taken 06/16/18] losartan 50 mg PO DAILY 07/04/20 [History Last Taken Unknown] montelukast 10 mg PO DAILY 07/04/20 [History Last Taken Unknown] albuterol sulfate [Ventolin HFA] 1 - 2 puff INHALATION Q4H PRN PRN #8.5 g 04/13/21 [Rx Last Taken Unknown] azelastine 2 spray INTRANASAL BID #30 ml 04/13/21 [Rx Last Taken Unknown] benzonatate 200 mg PO TID PRN #30 cap 04/13/21 [Rx Last Taken Unknown] Allergy/AdvReac Type Severity Reaction Status Date / Time lisinopril AdvReac Other Verified 05/22/21 14:19 Family History Father Cancer Mother Cancer Sister Cancer Brother Cancer Surgical History History of back surgery History of cholecystectomy History of hernia repair History of hysterectomy Social History Smoking Status: Never smoker second hand exposure: No alcohol intake: never substance use type: does not use ROS ROS ED ROS Narrative Diarrhea. Review of Systems ROS Unobtainable: Denies due to encephalopathy Constitutional Constitutional ED: Denies fever(s) Eyes Eyes: Denies change in vision ENT ENT ED: Denies ear pain, rhinorrhea or sore throat Cardiovascular Cardiovascular: Denies chest pain Respiratory/Chest Respiratory/Chest: Denies cough or dyspnea Gastrointestinal Gastrointestinal: Reports diarrhea; Denies abdominal pain, constipation, melena, nausea or vomiting Genitourinary Genitourinary ED: Denies dysuria Musculoskeletal Musculoskeletal: Denies myalgias Integumentary Denies rash Neurologic Neurologic: Denies headache(s) Psychiatric Psychiatric: Denies depression Endocrine Endocrinology: Denies polyuria Allergic/Immunologic Allergic/Immunologic ED: Denies urticaria EXAM Physical Exam Narrative Exam Narrative: 66-year-old female no acute distress. Vital signs stable afebrile. Initial blood pressure 144/66. H EENT exam normal. Neck nontender no lymphadenopathy. Lungs clear to auscultation bilaterally. Heart regular rhythm no murmur. Rate about 70. Abdomen soft nontender normal bowel sounds no peritoneal signs. Patient moving all 4 extremities. Calves are nontender without edema or cords. Neurologically she is awake and alert. No focal motor or sensory deficits. She is equal symmetrical wool fleece grader strength. Dorsi plantar flexion intact. Normal speech. No facial droop. NIH score of 0. Fingertip to nose within normal limits. Patient has a normal exam. Const Vital Signs: 05/22/21 14:15 05/22/21 14:16 05/22/21 14:20 Temperature 99.1 F Temperature Source Oral Pulse Rate 69 Respiratory Rate 16 Respiratory Effort Normal Non-Labored Respiratory Pattern Normal Blood Pressure 144/66 H Blood Pressure Mean 92 Pulse Ox 98 Oxygen Delivery Method Room Air Positive well nourished, well developed and obese; Negative for cachectic, contractures or unkempt General Appearance ED: well developed and NAD; Negative for unkempt, cachectic, contractures, cyanotic, diaphoretic or pallor Nutritional Appearance: obese; Negative for cachectic HEENT Reports moist mucous membranes Negative for trauma or tenderness Eyes PERRL and EOMs intact bilaterally Neck no lymphadenopathy, supple and no JVD General: Negative for tenderness Chest Wall inspection of chest normal and palpation of chest normal Resp normal respiratory effort and clear to auscultation bilaterally Effort and Inspection: Negative for pain with movement Auscultation: Negative for rales or rhonchi Cardio regular rate, regular rhythm, S1 normal heart sound, S2 normal heart sound and no murmurs Rate: Negative for bradycardia or tachycardic GI normal to inspection, nondistended, normoactive bowel sounds, non-tender, non- distended and no masses Auscultation: normoactive bowel sounds Palpation: soft; Negative for tender, guarding or rebound tenderness present Back/Spine no CVA tenderness General Back: Negative for CVA tenderness Cervical Spine: Negative for cervical spine tenderness Thoracic Spine / Upper Back: Negative for thoracic spinal tenderness or paraspinal muscle tenderness Extremity normal to inspection General Extremety ED: Negative for edema or tenderness General Extremity: Negative for edema Neuro oriented x3, CN's II-XII intact bilaterally and no sensory deficits noted Sensorium / Orientation: alert; Negative for orientation impaired, lethargic or stuporous Motor Exam: strength 5/5 throughout; Negative for general weakness Psych mental status grossly normal Appearance: Negative for unkempt Attitude: No agitated Mood & Affect: tearful; Negative for depressed or anxious Skin no rashes or lesions noted and no wounds General Skin Exam: Negative for jaundice or pallor MDM MDM MDM Narrative Medical decision making narrative: 66-year-old female with multiple complaints but has a normal exam. She complains of being lightheaded. Her neurologic exam is normal. I Nelsy do screening blood work and give her some IV fluids and she said recent diarrhea. Her blood pressure is normal and stable. She clinically does not look ill. Repeat exam patient is doing well at 3:43 PM. Exam unchanged. She clinically looks well. We went over her lab results. She will follow up outpatient. Lab Data Attestation: I reviewed the patient's lab results. Lab results narrative: CBC shows a normal white count of 8.9. Hemoglobin 12.1 hematocrit of 37. Normal platelets. Electrolytes unremarkable gap of 6 normal BUN and creatinine. Glucose 92. Labs: Laboratory Results - last 24 hr 05/22/21 05/22/21 14:43 14:43 WBC 8.9 RBC 4.47 Hgb 12.1 Hct 37.5 MCV 83.9 MCH 27.1 MCHC 32.3 RDW Std Deviation 48.2 H RDW Coeff of Patrick 15.8 H Plt Count 356 MPV 9.2 Immature Gran % (Auto) 0.200 Neut % (Auto) 46.0 L Lymph % (Auto) 42.1 H [place] % (Auto) 8.3 Eos % (Auto) 3.0 Baso % (Auto) 0.4 Absolute Neuts (auto) 4.1 Absolute Lymphs (auto) 3.75 Nucleated RBC % 0 Sodium 140 Potassium 4.0 Chloride 106 Carbon Dioxide 28.0 Anion Gap 6 BUN 16 Creatinine 0.79 Estim Creat Clear Calc 47.14 Est GFR (MDRD) Af Amer 94 Est GFR (MDRD) Non-Af 77 BUN/Creatinine Ratio 20.3 H Glucose 92 Calcium 8.6 Rhythm Strip Rhythm Strip: Sinus Rhythm Rate: 64 Ectopy: PAC(s) EKG Initial EKG: Attestation: I personally reviewed and interpreted this EKG as follows: Interpretation: Sinus Rhythm and No Acute Injury Pattern Comments: Normal sinus rhythm rate of 64 no acute signs of SD or ischemia. Few scattered PACs. Otherwise unremarkable EKG. Prior EKG tracings: not available for review Discharge Plan Triage Chief Complaint: Dizziness ED Provider: Ryan Nguyen Dx/Rx/DC Orders Clinical Impression: Dizziness, Anxiety Instructions: ED Dizziness, Uncertain Cause Prescriptions: No Action paroxetine HCl [Paxil] 40 MG tablet 40 mg PO DAILY RF: 0 trazodone 50 MG tablet 100 mg PO QHS RF: 0 esomeprazole magnesium [Nexium] 40 MG capsule 40 mg PO BID RF: 0 lorazepam 1 MG tablet 1 mg PO UD RF: 0 cholecalciferol (vitamin D3) 50,000 UNIT capsule 50,000 units PO KEITA RF: 0 albuterol sulfate 1 INHALER inhaler 1 - 2 puff INHALATION Q6H PRN PRN (Reason: Asthma) Qty: 1 RF: 0 hydrocodone-acetaminophen [[place]] 1 EACH tablet 1 ea PO TID PRN (Reason: Pain) RF: 0 levothyroxine 50 MCG tablet 50 mcg PO DAILY RF: 0 Pulmicort Flexhaler 1 PUFF inhaler 2 puff inhalation BID RF: 0 losartan 50 MG tablet 50 mg PO DAILY RF: 0 montelukast 10 MG tablet 10 mg PO DAILY RF: 0 azelastine 137 mcg (0.1 %) aerosol,spray 2 spray intranasal BID Qty: 30 RF: 0 benzonatate 200 mg capsule 200 mg PO TID PRN (Reason: cough) Qty: 30 RF: 0 albuterol sulfate [Ventolin HFA] 90 mcg/actuation HFA aerosol inhaler 1 - 2 puff inhalation Q4H PRN PRN (Reason: Wheezing) Qty: 8.5 RF: 0 Primary Care Provider: Olivia Gates Referrals: Olivia Gates DO [Primary Care Provider] - 1 Week if not improving Activity Restrictions/Additional Instructions: Your exam and labs and EKG today were normal. Follow-up with your primary care physician. Disposition Disposition: Home, Self Care
[2021-05-22] MEDS: 0.9% Normal Saline 1,000 ML 1000 ML IV (14:46)
[2021-05-22 14:47] LABS: Absolute Lymphocyte Count 3.75 X10^3/uL (0.83-4.51); Absolute Neutrophil Count 4.1 X10^3/uL (2.0-7.7); Basophil# 0.04 X10^3/uL; Basophil% 0.4 % (0-1); Eosinophil# 0.27 X10^3/uL; Hematocrit 37.5 % (37-47); Hemoglobin 12.1 g/dL (12.0-15.0); Lymphocyte # 3.75 X10^3/ul (0.83-4.51); Lymphocyte % 42.1 % (19-41); Mean Corp Hgb Conc 32.3 g/dL (32-36); Mean Corpuscular Hgb 27.1 pg (27.0-32.0); Mean Corpuscular Volume 83.9 fL (81-99); Mean Platelet Vol. 9.2 fl (6.2-12.0); Monocyte# 0.74 X10^3/uL; Monocyte% 8.3 % (0-10); NRBC Flagged by Analyzer 0 % (0-5); Neutrophil # 4.08 X10^3/uL (2.7-7.7); Platelet Count 356 K/mm3 (150-450); RBC Distribution Width CV 15.8 % (11.6-14.6); RBC Distribution Width SD 48.2 fl (35.1-43.9); Red Blood Count 4.47 M/mm3 (4.2-5.4); White Blood Count 8.9 K/mm3 (4.4-11.0)
[2021-05-22 15:01] LABS: Anion Gap 6 (5-15); BUN 16 mg/dL (7-18); BUN/Creat Ratio 20.3 RATIO (10-20); Calcium,Total 8.6 mg/dL (8.5-10.1); Chloride 106 mmol/L (98-107); Creatinine, Serum 0.79 mg/dL (0.55-1.02); EST Glomerular Filtration Rate 77 mL/min (>60); Est Glom Filt Rate - Afr Amer 94 mL/min (>60); Estimated Creatinine Clearance 47.14 ml/min; Glucose 92 mg/dL (74-106); Sodium Level 140 mmol/L (136-145)
== END 2021-05-22 15:54 | disposition home or self-care (01) ==
PROVIDERS: Emergency Provider Emergency Medicine; PCP Family Medicine; Visit Provider Emergency Medicine
DX: R42 Dizziness and giddiness (principal); I10 Essential (primary) hypertension; F41.9 Anxiety disorder, unspecified; K21.9 Gastro-esophageal reflux disease without esophagitis; J45.909 Unspecified asthma, uncomplicated; F32.A Depression, unspecified; E03.9 Hypothyroidism, unspecified; G47.33 Obstructive sleep apnea (adult) (pediatric); Z79.899 Other long term (current) drug therapy; Z79.890 Hormone replacement therapy; E66.9 Obesity, unspecified
CPT/HCPCS: 80048; 85025; 93005; 96360; 99285; A4216

== ENCOUNTER 2021-06-24 12:42 | Outpatient (CLI) | payer MEDICARE, MEDICAID, SELFPAY ==
--- NOTE | 2021-06-24 12:44 | BD_ITS ---
STUDY: DUAL ENERGY X-RAY ABSORPTIOMETRY / DXA REASON FOR EXAM: Female, 66 years old. [id number]. Patient is postmenopausal. TECHNIQUE: Bone Mineral Density (BMD) measurements of lumbar spine and bilateral hips were obtained. COMPARISON: None. FINDINGS: Lumbar Spine (L1-L4): g/cm2 (0.725) / T-score (-2.7) / Z-score (-0.8) Findings are suggestive of osteoporosis with a high fracture risk. Left Femur Total: g/cm2 (0.758) / T-score (-1.5) / Z-score (-0.2) Left Femoral Neck: g/cm2 (0.5-3) / T-score (-2.9) / Z-score (-1.3) Right Femur Total: g/cm2 (0.752) / T-score (-1.6) / Z-score (-0.2) Right Femoral Neck: g/cm2 (0.532) / T-score (-2.9) / Z-score (-1.2) BD/Dexa Bone Density Study IMPRESSION: The patient is considered osteoporotic as outlined below according to World [employer] Organization (WHO) criteria with a high fracture risk. Reference Information: The T-score is the number of standard deviations above or below the standard which is normal for young adults at their peak bone mineral density. The World Health Organization (WHO) interprets the T-scores as follows: Above -1 Normal bone density Between -1 and -2.5 Osteopenia Equal to / or below -2.5 Osteoporosis As a practical clinical guideline, osteopenia may be graded as follows: Mild -1 through -1.5 Moderate -1.6 through -2.0 Severe -2.1 through -2.4 The Z-score is the number of standard deviations above or below age-matched controls. A Z-score of less than -1.5 would be considered abnormal. References: 1. NIH Osteoporosis and Related Bone Diseases www osteo.org 2. International Society for Clinical Densitometry www iscd.org 3. National Osteoporosis Foundation www nof.org Electronically Signed: Siddhartha Butterfield MD at 14:26 EDT ,
--- NOTE | 2021-06-24 12:45 | BI_ITS ---
MAMMOGRAPHY - BILATERAL SCREENING 3-D TOMOSYNTHESIS REASON FOR EXAM: Female, 66 years old. SCREENING PERTINENT HISTORY: No significant family history. TECHNIQUE: 2-D mammograms and 3-D Tomosynthesis of the breast (s) were performed. CAD was performed. COMPARISON: 06/28/2017 FINDINGS: The breast composition is composed of scattered fibroglandular density. Scattered benign calcifications are seen. No dense spiculated masses or suspicious microcalcifications are identified. No architectural distortion is identified. There is no skin thickening or retraction. There has been no significant change since the prior study. BI/SCRN MAMM (CAD)W/DANNY BILAT IMPRESSION: No mammographic signs of malignancy. Routine yearly mammograms recommended. ASSESSMENT CATEGORY: BIRADS Category 1: Negative. A letter regarding these results will be sent to the patient by the facility within 30 days. FOLLOW UP RECOMMENDATION: Yearly follow up mammogram recommended. (A) Approximately 10% of breast cancers are not detected by mammography. A normal mammogram should not delay biopsy of a clinically suspicious abnormality. Electronically Signed: Eamon Yanes MD at 13:55 EDT ,
--- NOTE | 2021-06-24 13:42 | RAD_ITS ---
STUDY: X-RAY - LEFT SHOULDER REASON FOR EXAM: Female, 66 years old. L SHOULDER PAIN TECHNIQUE: 4 view(s) of the shoulder. COMPARISON: None. FINDINGS: Normal glenohumeral articulation. There is degenerative arthrosis of the acromioclavicular joint without inferior osseous spur formation. Normal acromion. Normal humeral head and visualized proximal humerus. The soft tissue structures are unremarkable. Normal visualized pulmonary apex. RAD/Shoulder min 2 Views IMPRESSION: AC joint arthrosis, no demonstrated fracture or suspicious osseous lesion Electronically Signed: Linwood Stone MD at 14:58 EDT ,
--- NOTE | 2021-06-24 13:42 | RAD_ITS ---
STUDY: X-RAY - CERVICAL SPINE REASON FOR EXAM: Female, 66 years old. Radiating neck pain TECHNIQUE: 6 view(s) of the cervical spine were obtained. COMPARISON: None FINDINGS: Normal anterior atlantoaxial articulation. Normal odontoid process. Normal cervical lordosis. Normal vertebral bodies and endplates. Mild disc space narrowing throughout the cervical spine. Mild foraminal narrowing. The soft tissue structures are unremarkable. RAD/Cerv Spine 4 or 5 Views IMPRESSION: Age consistent degenerative changes, no acute findings Electronically Signed: Linwood Stone MD at 14:59 EDT ,
== END 2021-06-24 23:59 | disposition home or self-care (01) ==
PROVIDERS: PCP Family Medicine; Visit Provider Family Medicine
DX: Z12.31 Encounter for screening mammogram for malignant neoplasm of breast (principal); M25.512 Pain in left shoulder; M54.12 Radiculopathy, cervical region; M81.0 Age-related osteoporosis without current pathological fracture
CPT/HCPCS: 72050; 73030; 77063; 77067; 77080

== ENCOUNTER 2021-12-22 14:18 | Observation (INO) | payer MEDICARE, MEDICAID, SELFPAY ==
[2021-12-22] VITALS (8 sets, daily range): BP systolic 148–165; BP diastolic 58–87; PULSE 77–91; RESP 19–26; TEMP 36.2–37.1; O2SAT 91–97; BMI 42.6; BMI 41.5
--- NOTE | 2021-12-22 15:09 | EDS_ITS ---
HPI History of Present Illness Chief Complaint: Chest Pain Informant: patient Onset/Context/Timing Onset: Today and Hours Activity at onset: sudden Timing: Continuous Quality: Positive for Aching and Pressure Location: Right Chest and Left Chest Worsened By: Eating and Coughing Relieved By: Nothing Associated Symptoms: Positive for Dyspnea, Cough, Lightheadedness and Acid Reflux; Negative for Nausea, Vomiting, Diaphoresis, Fever or Palpitations Narrative Narrative: Patient presents with chest pain that began today. Patient states it began a couple hours prior to arrival. Patient admits to some shortness of breath with this. Patient admits to a cough but denies any sputum. Patient describes her pain as aching and pressure. Patient states it is over the right and left side of her chest. Patient states it radiates into her neck and then into her back. Patient states that sometimes eating makes it worse. Patient also states that coughing makes it worse. Patient states nothing makes it better. Patient admits to some lightheadedness and reflux as well. CVD Risk Factors: Positive for Hypertension and Family History 1' </=55; Negative for Diabetes, Hypercholesterolemia or Smoking PE Risk Factors: Negative for Recent Travel/Surgery, Recent Immobilization, Prior DVT or PE, Cancer or OCP + Smoking + >/=35 PFSH PFSH Medical History (Updated 12/22/21 @ 18:[address] Nikolay Abdalla, DO) Anxiety Asthma Bronchitis Chronic back pain Depression GERD (gastroesophageal reflux disease) HTN (hypertension) Hypothyroidism RAJNI (obstructive sleep apnea) Home Medications paroxetine HCl 40 mg tablet (Paxil) 40 mg PO DAILY depression 01/29/13 [History Last Taken 06/16/18] trazodone 50 mg tablet 100 mg PO QHS sleep 01/29/13 [History Last Taken 06/16/18] esomeprazole magnesium 40 mg capsule,delayed release (Nexium) 40 mg PO BID GERD 05/16/14 [History Last Taken 06/16/18] lorazepam 1 mg tablet 2 mg PO BID anxiety 10/11/16 [History Last Taken 06/16/18] cholecalciferol (vitamin D3) 1,250 mcg (50,000 unit) capsule 50,000 units PO KEITA Vit D deficiency 05/20/17 [History Last Taken 06/16/18] albuterol sulfate 90 mcg/actuation aerosol inhaler 1 - 2 puff inhalation Q6H PRN PRN Asthma ##1 05/23/17 [Rx Last Taken 06/16/18] hydrocodone-acetaminophen 5-325mg 5mg-325mg ([place]) 1 ea PO TID PRN Pain 06/22/17 [History Last Taken 06/16/18] budesonide 180 mcg/actuation breath activated powder inhaler (Pulmicort Flexhaler) 2 puff inhalation BID 12/13/17 [History Last Taken 06/16/18] levothyroxine 50 mcg tablet 50 mcg PO DAILY thyroid 12/13/17 [History Last Taken 06/16/18] losartan 50 mg tablet 50 mg PO DAILY 07/04/20 [History Last Taken Unknown] montelukast 10 mg tablet 10 mg PO DAILY 07/04/20 [History Last Taken Unknown] albuterol sulfate 90 mcg/actuation aerosol inhaler (Ventolin HFA) 1 - 2 puff inhalation Q4H PRN PRN Wheezing #8.5 grams 04/13/21 [Rx Last Taken Unknown] azelastine 137 mcg (0.1 %) nasal spray aerosol 2 spray intranasal BID #30 mL 04/13/21 [Rx Last Taken Unknown] atorvastatin 40 mg tablet 40 mg PO QHS 12/22/21 [History Last Taken Unknown] pantoprazole 40 mg tablet,delayed release 40 mg PO DAILY 12/22/21 [History Last Taken Unknown] Allergy/AdvReac Type Severity Reaction Status Date / Time lisinopril AdvReac Other Verified 12/22/21 14:23 Family History Father Cancer Mother Cancer Sister Cancer Brother Cancer Surgical History History of back surgery History of cholecystectomy History of hernia repair History of hysterectomy Social History Smoking Status: Never smoker second hand exposure: No alcohol intake: never substance use type: does not use ROS ROS ED Constitutional Constitutional ED: Denies chills or fever(s) Eyes Eyes: Reports blurry vision; Denies change in vision ENT ENT ED: Reports sore throat; Denies rhinorrhea Cardiovascular Cardiovascular: Reports chest pain; Denies palpitations Respiratory/Chest Respiratory/Chest: Reports cough and dyspnea Gastrointestinal Gastrointestinal: Denies abdominal pain, nausea or vomiting Genitourinary Genitourinary ED: Denies dysuria or hematuria Musculoskeletal Musculoskeletal: Reports back pain and neck pain Integumentary Denies abscess or rash Neurologic Neurologic: Reports headache(s); Denies weakness Allergic/Immunologic Allergic/Immunologic ED: Denies mouth swelling or urticaria EXAM Physical Exam Const Vital Signs: 12/22/21 14:19 12/22/21 14:28 12/22/21 15:17 Temperature 98.7 F Temperature Source Oral Pulse Rate 91 Respiratory Rate 26 H Respiratory Effort Normal Non-Labored Blood Pressure 155/87 H Blood Pressure Mean 109 Pulse Ox 97 Oxygen Delivery Method Room Air Room Air 12/22/21 15:20 12/22/21 16:00 12/22/21 17:00 Temperature Temperature Source Pulse Rate 81 83 84 Respiratory Rate 19 H 26 H 21 H Respiratory Effort Blood Pressure 150/81 H 165/68 H 156/75 H Blood Pressure Mean 104 100 102 Pulse Ox 95 93 94 Oxygen Delivery Method Room Air Room Air Room Air 12/22/21 18:00 Temperature Temperature Source Pulse Rate 85 Respiratory Rate 24 H Respiratory Effort Blood Pressure 160/82 H Blood Pressure Mean 108 Pulse Ox 91 Oxygen Delivery Method Room Air Positive well nourished, well developed and obese General Appearance ED: well developed and NAD Nutritional Appearance: obese HEENT normocephalic and atraumatic Eyes PERRL and EOMs intact bilaterally Neck supple and no JVD Chest Wall palpation of chest normal Resp normal respiratory effort and clear to auscultation bilaterally Effort and Inspection: Negative for respiratory distress Cardio regular rate, regular rhythm and no murmurs GI normal to inspection, nondistended, normoactive bowel sounds, soft to palpation, non-tender and non-distended Extremity normal to inspection General Extremety ED: Negative for edema or tenderness General Extremity: Negative for edema Neuro oriented x3, CN's II-XII intact bilaterally and no sensory deficits noted Sensorium / Orientation: awake and alert Motor Exam: strength 5/5 throughout Psych mental status grossly normal Heart Score History: Moderately Suspicious ECG: Nonspecific Repolarization Age: >/= 65 years Risk Factors: 1 or 2 Risk Factors Troponin: </= Normal Limit Score: 5 MDM MDM MDM Narrative Medical decision making narrative: Patient was given aspirin and sublingual nitroglycerin. EKG was obtained. On my interpretation, it showed a normal sinus rhythm with a rate of 86. NC interval, QRS interval, and QTc intervals were all normal. [place] was normal. There are nonspecific ST-T wave changes. CBC was within normal limits. Basic metabolic profile was within normal limits. D-dimer was adjusted for age and was normal at 0.67. High-sensitivity troponin was normal at 6. 2-hour repeat high-sensitivity troponin was also normal at 6. Portable 1 view chest x-ray was obtained. On my interpretation, lung prince show mild vascular congestion. There is normal cardiac silhouette. Bony thorax is normal. There is no acute process noted. Radiologist also interpreted the x-ray and agrees. Patient has a HEART score of 5. Because of this, I recommended admission to the hospital. Patient's last stress test was in 2018. Case was discussed with the hospitalist. He will admit the patient to his service. Patient understands and is agreeable with the plan. All questions were answered. Lab Data Attestation: I reviewed the patient's lab results. Labs: Laboratory Results - last 24 hr 12/22/21 12/22/21 12/22/21 14:20 14:20 14:20 WBC 10.3 RBC 4.69 Hgb 12.0 Hct 39.0 MCV 83.2 MCH 25.6 L MCHC 30.8 L RDW Std Deviation 47.7 H RDW Coeff of Patrick 15.9 H Plt Count 379 MPV 9.3 Immature Gran % (Auto) 0.600 Neut % (Auto) 68.1 Lymph % (Auto) 19.8 [place]ing % (Auto) 9.5 Eos % (Auto) 1.4 Baso % (Auto) 0.6 Absolute Neuts (auto) 7.0 Absolute Lymphs (auto) 2.04 Nucleated RBC % 0 D-Dimer Quant (PE/DVT) 0.67 H* Sodium 140 Potassium 3.5 Chloride 104 Carbon Dioxide 28.0 Anion Gap 8 BUN 7 Creatinine 0.96 Estim Creat Clear Calc 44.98 Est GFR (MDRD) Af Amer 74 Est GFR (MDRD) Non-Af 61 BUN/Creatinine Ratio 7.3 L Glucose 99 Calcium 8.9 Magnesium 2.1 Troponin I High Sens 6 12/22/21 17:10 WBC RBC Hgb Hct MCV MCH MCHC RDW Std Deviation RDW Coeff of Patrick Plt Count MPV Immature Gran % (Auto) Neut % (Auto) Lymph % (Auto) [place] % (Auto) Eos % (Auto) Baso % (Auto) Absolute Neuts (auto) Absolute Lymphs (auto) Nucleated RBC % D-Dimer Quant (PE/DVT) Sodium Potassium Chloride Carbon Dioxide Anion Gap BUN Creatinine Estim Creat Clear Calc Est GFR (MDRD) Af Amer Est GFR (MDRD) Non-Af BUN/Creatinine Ratio Glucose Calcium Magnesium Troponin I High Sens 6 Radiography Chest X-Ray - ED: 1 View, Read by ED Physician, Read by Radiologist, Lungs (Mild vascular congestion) and No Acute Disease Diagnostic Testing: Clinical Impression(s) from Imaging Studies Chest X-Ray 12/22/21 15:19 IMPRESSION: Mild degree of vascular congestion. Electronically Signed: Siddhartha Butterfield MD at 15:32 EDT , EKG Initial EKG: Attestation: I personally reviewed and interpreted this EKG as follows: Interpretation: Sinus Rhythm (86) and Non-Specific ST Changes Prior EKG tracings: available for review Prior: Unchanged (05/22/2021) Discharge Plan Dx/Rx/DC Orders Clinical Impression: Chest pain, Hypothyroidism, HTN (hypertension) Disposition Disposition: Acute Care Hospital [facility]
--- NOTE | 2021-12-22 15:13 | EKG12_ITS ---
Test Reason : CP Blood Pressure : / mmHG Vent. Rate : 086 BPM Atrial Rate : 086 BPM P-R Int : 150 ms QRS Dur : 074 ms QT Int : 388 ms P-R-T Axes : 027 036 038 degrees QTc Int : 464 ms Normal sinus rhythm Nonspecific ST abnormality Abnormal ECG Confirmed by CHING OZUNA, KRISTEN ([id number]), magazine editor HARSHA GUSTAFSON ([id number]) on 12/24/2021 10:03:47 AM Referred By: GRAHAM Confirmed By:KRISTEN FLOWER MD
--- NOTE | 2021-12-22 15:19 | RAD_ITS ---
STUDY: X-RAY CHEST REASON FOR EXAM: Female, 66 years old. Chest pain and shortness of breath. TECHNIQUE: Single AP portable view of the chest. COMPARISON: Comparison is made with prior study dated 04/12/2021. FINDINGS: EKG electrodes are seen. Mild degree of vascular congestion. There is no demonstrated pleural abnormality. Normal size heart. Normal mediastinum and dave. Normal visualized pulmonary arteries. There is atherosclerotic calcification of the aortic arch with tortuosity. Normal visualized thoracic spine. Normal visualized ribs, clavicles, and shoulders. There is no demonstrated abnormality of the visualized soft tissue structures of the upper abdomen. RAD/Chest 1 View (Portable) IMPRESSION: Mild degree of vascular congestion. Electronically Signed: Siddhartha Butterfield MD at 15:32 EDT ,
[2021-12-22] MEDS: Aspirin 81 MG TAB.CHEW 324 MG PO (15:20)
[2021-12-22 15:21] LABS: Absolute Lymphocyte Count 2.04 X10^3/uL (0.83-4.51); Basophil# 0.06 X10^3/uL; Basophil% 0.6 % (0-1); Eosinophil# 0.14 X10^3/uL; Eosinophils% 1.4 % (0-5); Lymphocyte # 2.04 X10^3/ul (0.83-4.51); Lymphocyte % 19.8 % (19-41); Mean Corp Hgb Conc 30.8 g/dL (32-36); Mean Corpuscular Hgb 25.6 pg (27.0-32.0); Mean Corpuscular Volume 83.2 fL (81-99); Mean Platelet Vol. 9.3 fl (6.2-12.0); Monocyte# 0.98 X10^3/uL; Monocyte% 9.5 % (0-10); NRBC Flagged by Analyzer 0 % (0-5); Neutrophil # 7.01 X10^3/uL (2.7-7.7); Neutrophil % 68.1 % (47-70); Platelet Count 379 K/mm3 (150-450); RBC Distribution Width CV 15.9 % (11.6-14.6); RBC Distribution Width SD 47.7 fl (35.1-43.9); Red Blood Count 4.69 M/mm3 (4.2-5.4); White Blood Count 10.3 K/mm3 (4.4-11.0)
[2021-12-22 15:40] LABS: Anion Gap 8 (5-15); BUN 7 mg/dL (7-18); BUN/Creat Ratio 7.3 RATIO (10-20); Calcium,Total 8.9 mg/dL (8.5-10.1); Chloride 104 mmol/L (98-107); Creatinine, Serum 0.96 mg/dL (0.55-1.02); EST Glomerular Filtration Rate 61 mL/min (>60); Est Glom Filt Rate - Afr Amer 74 mL/min (>60); Estimated Creatinine Clearance 44.98 ml/min; Glucose 99 mg/dL (74-106); Magnesium 2.1 mg/dL (1.6-2.6); Potassium 3.5 mmol/L (3.5-5.1); Sodium Level 140 mmol/L (136-145); Troponin-I HS (w/2H Reflex) 6 pg/mL (3.0-54.0)
[2021-12-22 15:48] LABS: D-Dimer Quantitative (DVT/PE) 0.67 FEU/ug/m (0.27-0.49)
[2021-12-22 17:18] LABS: Reflex Troponin-HS? (from REC) Y
[2021-12-22 17:43] LABS: Troponin-I HS 6 pg/mL (3.0-54.0)
--- NOTE | 2021-12-22 18:22 | NURSING ---
HOSPITALIST FOR DR MILLAN
--- NOTE | 2021-12-22 19:40 | HP.PCM_ITS ---
Documented by User: CLYDE Giraldo 12/22/21 20:47 HPI - General General Date of Admission: 12/22/21 Date of Service: 12/22/21 Chief Complaint: Chest Pain HPI Narrative NENA KRISHNAN, is a 66 F who presents plaints of left sided chest pain that radiates to her back that started today. Patient denies any dyspnea with the pain. Patient denies nausea or vomiting. Patient denies radiation into her arm or jaw. Patient reports a medical history that includes COPD, hypothyroidism, anxiety, hypertension, GERD. [facility] Medical History (Updated 12/22/21 @ 20:18 by Grace Roberts) Anxiety Asthma Bronchitis Chronic back pain Depression GERD (gastroesophageal reflux disease) HTN (hypertension) Hypothyroidism RAJNI (obstructive sleep apnea) Rheumatoid arthritis Home Medications paroxetine HCl 40 mg tablet (Paxil) 40 mg PO DAILY depression 01/29/13 [History Last Taken 12/22/21] trazodone 50 mg tablet 100 mg PO QHS sleep 01/29/13 [History Last Taken 12/21/21] esomeprazole magnesium 40 mg capsule,delayed release (Nexium) 40 mg PO BID GERD 05/16/14 [History Last Taken 12/22/21] lorazepam 1 mg tablet 2 mg PO BID anxiety 10/11/16 [History Last Taken 12/22/21] cholecalciferol (vitamin D3) 1,250 mcg (50,000 unit) capsule 50,000 units PO KEITA Vit D deficiency 05/20/17 [History Last Taken 12/19/21] albuterol sulfate 90 mcg/actuation aerosol inhaler 1 - 2 puff inhalation Q6H PRN PRN Asthma ##1 05/23/17 [Rx Last Taken 06/16/18] hydrocodone-acetaminophen 5-325mg 5mg-325mg ([place]) 1 ea PO TID PRN Pain 06/22/17 [History Last Taken 12/21/21] budesonide 180 mcg/actuation breath activated powder inhaler (Pulmicort Flexhaler) 2 puff inhalation BID SOB/wheezing 12/13/17 [History Last Taken 12/21/21] levothyroxine 50 mcg tablet 50 mcg PO DAILY thyroid 12/13/17 [History Last Taken 12/21/21] losartan 50 mg tablet 50 mg PO DAILY blood pressure 03/27/21 [History Last Taken 12/22/21] montelukast 10 mg tablet 10 mg PO DAILY allergies 07/04/20 [History Last Taken 12/22/21] albuterol sulfate 90 mcg/actuation aerosol inhaler (Ventolin HFA) 1 - 2 puff inhalation Q4H PRN PRN Wheezing #8.5 grams 04/13/21 [Rx Last Taken Unknown] atorvastatin 40 mg tablet 40 mg PO QHS cholesterol 12/22/21 [History Last Taken 12/21/21] azelastine 137 mcg (0.1 %) nasal spray aerosol 2 spray intranasal BID antihistamine 12/22/21 [History Last Taken 12/21/21] pantoprazole 40 mg tablet,delayed release 40 mg PO DAILY acid reflux 12/22/21 [History Last Taken 12/22/21] Allergy/AdvReac Type Severity Reaction Status Date / Time lisinopril AdvReac Other Verified 12/22/21 14:23 Family History Father Cancer Mother Cancer Sister Cancer Brother Cancer Surgical History History of back surgery History of cholecystectomy History of hernia repair History of hysterectomy Social History Smoking Status: Never smoker second hand exposure: No alcohol intake: never substance use type: does not use ROS Constitutional Constitutional: Denies anorexia, chills, fatigue, fever(s) or weakness Cardiovascular Cardiovascular: Reports chest pain; Denies edema, palpitations or syncope Respiratory/Chest Respiratory/Chest: Reports cough; Denies shortness of breath at rest, shortness of breath with exertion or wheezing Gastrointestinal Gastrointestinal: Denies abdominal pain, constipation, diarrhea, nausea or vomiting Genitourinary Genitourinary: Denies dysuria Musculoskeletal Musculoskeletal: Denies back pain, extremity pain or joint pain Integumentary Integumentary: Denies dry skin Neurologic Neurologic: Denies abnormal gait, abnormal speech, confusion or dizziness Psychiatric Psychiatric: Denies anxiety or depression Endocrine Endocrinology: Denies change in body appearance Hematologic/Lymphatic Hematologic/Lymphatic: Denies anemia Vital Signs Vital Signs Vital Signs: 12/22/21 14:19 12/22/21 14:28 12/22/21 15:17 Temperature 98.7 F Temperature Source Oral Pulse Rate 91 Respiratory Rate 26 H Respiratory Effort Normal Non-Labored Blood Pressure 155/87 H Blood Pressure Mean 109 Blood Pressure Source Blood Pressure Position Blood Pressure Location Pulse Ox 97 Oxygen Delivery Method Room Air Room Air 12/22/21 15:20 12/22/21 16:00 12/22/21 17:00 Temperature Temperature Source Pulse Rate 81 83 84 Respiratory Rate 19 H 26 H 21 H Respiratory Effort Blood Pressure 150/81 H 165/68 H 156/75 H Blood Pressure Mean 104 100 102 Blood Pressure Source Blood Pressure Position Blood Pressure Location Pulse Ox 95 93 94 Oxygen Delivery Method Room Air Room Air Room Air 12/22/21 18:00 12/22/21 18:32 12/22/21 19:02 Temperature 97.3 F L 97.2 F L Temperature Source Temporal Temporal Pulse Rate 85 81 78 Respiratory Rate 24 H 19 H 20 H Respiratory Effort Blood Pressure 160/82 H 165/68 H 148/58 H Blood Pressure Mean 108 100 88 Blood Pressure Source Monitor Blood Pressure Position Semi-Fowlers Blood Pressure Location Left Arm Pulse Ox 91 93 96 Oxygen Delivery Method Room Air Room Air Room Air Weight Weight: 233 lb 0.458 oz Body Mass Index (BMI) 42.6 Physical Exam Const alert, oriented x3 and no apparent distress General Appearance: cooperative HEENT normocephalic, head/scalp atraumatic and moist oral mucous membranes Eyes conjunctivae normal and no scleral icterus Neck no lymphadenopathy and supple General: trachea midline Resp normal respiratory effort and normal air movement Effort and Inspection: tachypneic Cardio regular rate, regular rhythm, S1 normal heart sound, S2 normal heart sound and peripheral pulses 2+ throughout GI normal to inspection, nondistended, normoactive bowel sounds, soft to palpation and non-tender Extremity normal capillary refill and no clubbing, cyanosis or edema Skin General Skin Exam: no breakdown Lesions: no lesions Rashes: no rashes Neuro no focal motor deficits and no sensory deficits noted Speech: speech normal Psych thought process normal, cooperative and affect normal Results Lab / Micro Data Result Diagrams: 12/22/21 14:20 12/22/21 14:20 Labs: Laboratory Results - last 24 hr 12/22/21 14:20: WBC 10.3, RBC 4.69, Hgb 12.0, Hct 39.0, MCV 83.2, MCH 25.6 L, MCHC 30.8 L, RDW Std Deviation 47.7 H, RDW Coeff of Patrick 15.9 H, Plt Count 379, MPV 9.3, Immature Gran % (Auto) 0.600, Neut % (Auto) 68.1, Lymph % (Auto) 19.8, [place] % (Auto) 9.5, Eos % (Auto) 1.4, Baso % (Auto) 0.6, Absolute Neuts (auto) 7.0, Absolute Lymphs (auto) 2.04, Nucleated RBC % 0 12/22/21 14:20: D-Dimer Quant (PE/DVT) 0.67 H* 12/22/21 14:20: Sodium 140, Potassium 3.5, Chloride 104, Carbon Dioxide 28.0, Anion Gap 8, BUN 7, Creatinine 0.96, Estim Creat Clear Calc 44.98, Est GFR (MDRD) Af Amer 74, Est GFR (MDRD) Non-Af 61, BUN/Creatinine Ratio 7.3 L, Glucose 99, Calcium 8.9, Magnesium 2.1, Troponin I High Sens 6 12/22/21 17:10: Troponin I High Sens 6 Radiology Impression Chest X-Ray 12/22/21 15:19 IMPRESSION: Mild degree of vascular congestion. Electronically Signed: Siddhartha Butterfield MD at 15:32 EDT Reading Location ID and State: [facility] / [place] , Service support , Assessment & Plan Assessment/Plan (1) Atypical chest pain: PLAN: Plan 1. Chest Pain -Admit to PCU -CBC, BMP, Lipid profile -Chemical stress in am -Trend cardiac enzymes -Cardiac diet, NPO at midnight -12 lead EKG 2. Hypertension -vital signs per protocol -Continue Losartan 3. GERD -continue esomeprazole 4. Hyperlipidemia -Continue atorvastatin 5. Hypothyroidism -continue levothyroxine -TSH in am 6. Anxiety -Continue paxil, trazodone, lorazepam 7. COPD -Continue montelukast, Pulmicort, azelastine DVT prophylaxis-SQ lovenox This patient was seen by Leslee Mendez, SANIA-C under the supervision of Dr. Ortiz. 29 minutes spent in clinical coordination of patient's plan of care. Documented by User: Dr. Chaz Ortiz, DO 12/22/21 22:24 HPI - General General Date of Admission: 12/22/21 [facility] Medical History (Updated 12/22/21 @ 20:18 by Grace Roberts) Anxiety Asthma Bronchitis Chronic back pain Depression GERD (gastroesophageal reflux disease) HTN (hypertension) Hypothyroidism RAJNI (obstructive sleep apnea) Rheumatoid arthritis Home Medications paroxetine HCl 40 mg tablet (Paxil) 40 mg PO DAILY depression 01/29/13 [History Last Taken 12/22/21] trazodone 50 mg tablet 100 mg PO QHS sleep 01/29/13 [History Last Taken 12/21/21] esomeprazole magnesium 40 mg capsule,delayed release (Nexium) 40 mg PO BID GERD 05/16/14 [History Last Taken 12/22/21] lorazepam 1 mg tablet 2 mg PO BID anxiety 10/11/16 [History Last Taken 12/22/21] cholecalciferol (vitamin D3) 1,250 mcg (50,000 unit) capsule 50,000 units PO KEITA Vit D deficiency 05/20/17 [History Last Taken 12/19/21] albuterol sulfate 90 mcg/actuation aerosol inhaler 1 - 2 puff inhalation Q6H PRN PRN Asthma ##1 05/23/17 [Rx Last Taken 06/16/18] hydrocodone-acetaminophen 5-325mg 5mg-325mg ([place]) 1 ea PO TID PRN Pain 06/08 08/25 [History Last Taken 12/21/21] budesonide 180 mcg/actuation breath activated powder inhaler (Pulmicort Flexhaler) 2 puff inhalation BID SOB/wheezing 12/13/17 [History Last Taken 12/21/21] levothyroxine 50 mcg tablet 50 mcg PO DAILY thyroid 12/13/17 [History Last Taken 12/21/21] losartan 50 mg tablet 50 mg PO DAILY blood pressure 07/04/20 [History Last Taken 12/22/21] montelukast 10 mg tablet 10 mg PO DAILY allergies 07/04/20 [History Last Taken 12/22/21] albuterol sulfate 90 mcg/actuation aerosol inhaler (Ventolin HFA) 1 - 2 puff inhalation Q4H PRN PRN Wheezing #8.5 grams 04/13/21 [Rx Last Taken Unknown] atorvastatin 40 mg tablet 40 mg PO QHS cholesterol 12/22/21 [History Last Taken 12/21/21] azelastine 137 mcg (0.1 %) nasal spray aerosol 2 spray intranasal BID antihistamine 12/22/21 [History Last Taken 12/21/21] pantoprazole 40 mg tablet,delayed release 40 mg PO DAILY acid reflux 12/22/21 [History Last Taken 12/22/21] Allergy/AdvReac Type Severity Reaction Status Date / Time lisinopril AdvReac Other Verified 12/22/21 14:23 Family History Father Cancer Mother Cancer Sister Cancer Brother Cancer Surgical History History of back surgery History of cholecystectomy History of hernia repair History of hysterectomy Social History Smoking Status: Never smoker second hand exposure: No alcohol intake: never substance use type: does not use Results Lab / Micro Data Result Diagrams: 12/22/21 14:20 12/22/21 14:20 Assessment & Plan Assessment/Plan (1) Atypical chest pain: Charges/Coding Addendum Addendum: Patient was seen and examined independently of Clary Mendez today, she came to the ER today with complaints of precordial chest pain, this chest discomfort started a couple of hours prior to being seen in the emergency room, she describes the discomfort as being pressure-like and achy in nature, it was over the left side of the chest and somewhat over the right side. Patient states it radiates down both of her arms. Patient stated the coughing made it worse. Patient has not had a recent cardiac stress test. On examination she appeared in good health and spirits, she does not appear to be in any distress. Vital signs as documented. Skin warm and dry and without overt rashes. Neck without JVD, thyroid appears normal, trachea is midline, neck is supple. Lungs clear, normal air movement was noted. Heart exam notable for regular rhythm, normal sounds and absence of murmurs, rubs or gallops. Abdomen unremarkable and without evidence of organomegaly, masses, or abdominal aortic enlargement, bowel sounds are present in all 4 quadrants, no abdominal tendernes s was noted. Extremities nonedematous, no cyanosis was noted, no clubbing was noted. Neuro: Cranial nerves II through XII are grossly intact, no focal motor deficits were noted, sensation to light touch and pinprick is intact, motor exam 5/5 throughout. Psych: Patient is alert and oriented x3, she does not appear anxious or depressed, she does not appear agitated. Impression: #1 precordial chest pain-etiology unclear-patient's cardiac enzymes were unremarkable, patient's EKG did not show an injury pattern, patient will be placed in observation status on PCU, cardiac enzymes will be cycled, patient will undergo a pharmacological nuclear resting stress test tomorrow if her enzymes remain normal. Patient's chest x-ray was read out as showing a mild degree of vascular congestion, echocardiogram will be obtained tomorrow, repeat chest x-ray will be obtained tomorrow. #2 chronic depression-patient is on Paxil, this will be continued #3 essential hypertension-patient is on losartan, this will be continued #4 hypothyroidism-patient is on Synthroid, this will be continued I have reviewed Clary Mendez's history and physical including her medical assessment and plan of care and with the above additions endorse it. Total clinical time spent by myself addressing the patient's medical issues, reviewing the data, and collaborating with patient's care team: 45 minutes Visit Charges OBSV E&M: [id number] Initial observation care L3
--- NOTE | 2021-12-22 20:01 | EKG12_ITS ---
Test Reason : cp admission Blood Pressure : / mmHG Vent. Rate : 082 BPM Atrial Rate : 082 BPM P-R Int : 174 ms QRS Dur : 074 ms QT Int : 396 ms P-R-T Axes : 046 027 050 degrees QTc Int : 462 ms Normal sinus rhythm Nonspecific ST abnormality Abnormal ECG When compared with ECG of 22-MAY-2021 15:03, Premature atrial complexes are no longer Present Confirmed by CHING OZUNA, KRISTEN ([id number]), telegraph editor HARSHA GUSTAFSON ([id number]) on 12/24/2021 10:16:40 AM Referred By: Angel Confirmed By:KRISTEN FLOWER MD
[2021-12-22] MEDS: Atorvastatin Calcium 40 MG Tablet PO (21:15)
[2021-12-22] MEDS: traZODone 100 MG Tablet PO (21:15)
[2021-12-22] MEDS: Pantoprazole Sodium 40 MG Tablet PO (21:15)
[2021-12-22] MEDS: LORazepam 1 MG Tablet 2 MG PO (21:15)
[2021-12-22] MEDS: Azelastine HCl NASAL.SRY 2 SPRAY NASAL (21:15)
[2021-12-22 21:57] LABS: Troponin-I HS 7 pg/mL (3.0-54.0)
--- NOTE | 2021-12-22 22:24 | ECHOD_ITS ---
Reason For Study: Chest pain Procedure This was a 2D Doppler, Color Flow transthoracic echocardiogram. The study was technically difficult. Exam performed portable in patient room. Left Ventricle Normal left ventricle. The estimated ejection fraction is 55-60 %. Right Ventricle Normal right ventricle. Normal systolic function. Atria Normal left atrium. Normal right atrium. Mitral Valve The mitral valve is structurally normal. No prolapse or stenosis seen. Tricuspid Valve Normal tricuspid valve. Mild (1+) tricuspid valve insufficiency. Aortic Valve Normal aortic valve. Pulmonic Valve The pulmonic valve is not well visualized. Great Vessels Normal aortic root. Pericardium/Pleural No pericardial effusion. MMode/2D Measurements & Calculations LVIDd: 4.4 cm IVSd: 1.1 cm Ao root diam: 2.8 cm LVIDs: 2.2 cm LVPWd: 1.1 cm RVDd: 3.8 cm FS: 49.1 % LAV(MOD-bp): 53.2 ml LVAd ap4: 24.7 cm2 SV(MOD-sp4): 41.7 ml LAV(MOD-bp) Indexed: 26.4 ml/m2 LVLd ap4: 7.2 cm LAV(MOD-sp2): 34.2 ml EDV(MOD-sp4): 69.8 ml LAV(MOD-sp4): 69.1 ml EDV(sp4-el): 71.6 ml LVAs ap4: 14.1 cm2 LVLs ap4: 6.4 cm ESV(MOD-sp4): 28.0 ml ESV(sp4-el): 26.5 ml EF(MOD-sp4): 59.8 % EF(sp4-el): 63.0 % SV(sp4-el): 45.1 ml LA A4 area: 23.0 cm2 LA dimension(2D): 4.1 cm RA A4 area: 12.2 cm2 Time Measurements MV dec time: 0.21 sec Doppler Measurements & Calculations MV E max fabián: 77.2 cm/sec Lat Peak E' Fabián: 13.5 cm/sec Med Peak E' Fabián: 7.4 cm/sec MV A max fabiná: 69.0 cm/sec E/E' lat: 5.7 E/E' med: 10.4 MV E/A: 1.1 Ao V2 max: 156.8 cm/sec LV V1 max: 119.8 cm/sec MV dec slope: 366.9 cm/sec2 Ao max P.8 mmHg LV V1 max P.7 mmHg Ao V2 mean: 109.4 cm/sec LV V1 mean P.2 mmHg Ao mean P.4 mmHg LV V1 mean: 84.2 cm/sec Ao V2 VTI: 34.4 cm LV V1 VTI: 25.4 cm PA V2 max: 102.6 cm/sec TR max fabián: 232.5 cm/sec TR max P.8 mmHg ECHO/Echo Complete Interpretation Summary The estimated ejection fraction is 55-60 %. No significant changes from previous Echo Ordering Physician: Cahz Ortiz Referring Physician: Olivia Gates Performed By: Amparo Hendricks RDCS
[2021-12-22 23:07] LABS: BNP,B-Type NATRIURETIC PEPTIDE 33.9 pg/mL (0-100)
[2021-12-23 01:00] VITALS: BP 138/59; PULSE 84; RESP 17; TEMP 37.1; O2SAT 92
[2021-12-23 03:00] VITALS: PULSE 87
[2021-12-23] MEDS: Levothyroxine 50 MCG Tablet PO (05:04)
--- NOTE | 2021-12-23 05:15 | RAD_ITS ---
STUDY: XR Chest 2 Views 12/23/2021 5:24 AM REASON FOR EXAM: Female, 66 years old. CHEST PAIN vascular congestion COMPARISON: Study done yesterday TECHNIQUE: XR Chest 2 Views FINDINGS: There is no demonstrated pleural abnormality. Left infiltrate. Normal heart size. Normal mediastinum. Normal dave. Prominent appearing increased interstitial lung markings. Normal visualized pulmonary arteries. There is atherosclerotic calcification of the aortic arch with tortuosity. There are diffuse degenerative changes of the visualized thoracic spine. There is degenerative osteoarthritis of the bilateral shoulders. There is no demonstrated abnormality of the visualized soft tissue structures of the upper abdomen. RAD/Chest PA and Lateral IMPRESSION: Pulmonary findings appear improved. Electronically Signed: Juanjose Green MD at 17:15 EDT ,
--- NOTE | 2021-12-23 05:55 | EKG12_ITS ---
Test Reason : am ekg Blood Pressure : / mmHG Vent. Rate : 082 BPM Atrial Rate : 082 BPM P-R Int : 164 ms QRS Dur : 074 ms QT Int : 398 ms P-R-T Axes : 048 038 059 degrees QTc Int : 464 ms Normal sinus rhythm Nonspecific ST abnormality Abnormal ECG Confirmed by ELEUTERIO OZUNA, RASHARD ([id number]), photograph editor HARSHA GUSTAFSON ([id number]) on 12/24/2021 9:33:54 AM Referred By: Angel Confirmed By:RASHARD MCCLELLAN MD
[2021-12-23 06:42] LABS: Absolute Lymphocyte Count 2.06 X10^3/uL (0.83-4.51); Absolute Neutrophil Count 3.8 X10^3/uL (2.0-7.7); Basophil# 0.04 X10^3/uL; Basophil% 0.6 % (0-1); Eosinophil# 0.05 X10^3/uL; Eosinophils% 0.7 % (0-5); Hematocrit 35.6 % (37-47); Hemoglobin 11.3 g/dL (12.0-15.0); Lymphocyte # 2.06 X10^3/ul (0.83-4.51); Lymphocyte % 29.9 % (19-41); Mean Corp Hgb Conc 31.7 g/dL (32-36); Mean Corpuscular Hgb 26.5 pg (27.0-32.0); Mean Corpuscular Volume 83.4 fL (81-99); Mean Platelet Vol. 9.3 fl (6.2-12.0); Monocyte# 0.89 X10^3/uL; Monocyte% 12.9 % (0-10); NRBC Flagged by Analyzer 0 % (0-5); Neutrophil # 3.82 X10^3/uL (2.7-7.7); Neutrophil % 55.5 % (47-70); Platelet Count 313 K/mm3 (150-450); RBC Distribution Width CV 15.9 % (11.6-14.6); RBC Distribution Width SD 48.2 fl (35.1-43.9); Red Blood Count 4.27 M/mm3 (4.2-5.4); White Blood Count 6.9 K/mm3 (4.4-11.0)
[2021-12-23] MEDS: Aspirin E.C. 81 MG Tablet PO (06:45)
[2021-12-23] MEDS: Losartan Potassium 50 MG Tablet PO (06:45)
[2021-12-23 06:49] VITALS: BP 143/66; PULSE 77; RESP 17; TEMP 37.1; O2SAT 97
[2021-12-23 06:58] VITALS: PULSE 73; RESP 12; O2SAT 91
[2021-12-23] MEDS: Budesonide Respules 0.5 MG/2 ML AMPUL.NEB. INHALATION (06:58)
[2021-12-23 07:00] VITALS: PULSE 74
[2021-12-23 07:22] LABS: Anion Gap 9 (5-15); BUN 9 mg/dL (7-18); BUN/Creat Ratio 9.1 RATIO (10-20); Calcium,Total 8.5 mg/dL (8.5-10.1); Chloride 107 mmol/L (98-107); Cholesterol 167 mg/dL (200); Creatinine, Serum 0.99 mg/dL (0.55-1.02); EST Glomerular Filtration Rate 59 mL/min (>60); Est Glom Filt Rate - Afr Amer 72 mL/min (>60); Estimated Creatinine Clearance 43.61 ml/min; Glucose 99 mg/dL (74-106); High Density Lipoprotein 44 mg/dL; Potassium 3.7 mmol/L (3.5-5.1); Sodium Level 141 mmol/L (136-145); Thyroid Stim Hormone (TSH) 2.81 uIU/mL (0.358-3.74); Triglycerides 107 mg/dL; Very Low Density Lipoprotein 21 mg/dL (5-40)
--- NOTE | 2021-12-23 08:10 | PN.HOSP_ITS ---
Subjective Subjective chest pain with coughing. Objective Data Objective Data Vital Signs: Vital Signs Temp Pulse Resp BP Pulse Ox O2 Del Method 37.1 C 74 12 143/66 H 91 Room Air 12/23/21 06:49 12/23/21 07:00 12/23/21 06:58 12/23/21 06:49 12/23/21 06:58 12/23/21 07:57 Oxygen Delivery Method Room Air Weight: 103.1 kg Body Mass Index (BMI) 41.5 Lab / Micro Data Result Diagrams: 12/23/21 05:50 12/23/21 05:50 Labs: Laboratory Results - last 24 hr 12/22/21 14:20: WBC 10.3, RBC 4.69, Hgb 12.0, Hct 39.0, MCV 83.2, MCH 25.6 L, MCHC 30.8 L, RDW Std Deviation 47.7 H, RDW Coeff of Patrick 15.9 H, Plt Count 379, MPV 9.3, Immature Gran % (Auto) 0.600, Neut % (Auto) 68.1, Lymph % (Auto) 19.8, [place] % (Auto) 9.5, Eos % (Auto) 1.4, Baso % (Auto) 0.6, Absolute Neuts (auto) 7.0, Absolute Lymphs (auto) 2.04, Nucleated RBC % 0 12/22/21 14:20: D-Dimer Quant (PE/DVT) 0.67 H* 12/22/21 14:20: Sodium 140, Potassium 3.5, Chloride 104, Carbon Dioxide 28.0, Anion Gap 8, BUN 7, Creatinine 0.96, Estim Creat Clear Calc 44.98, Est GFR (MDRD) Af Amer 74, Est GFR (MDRD) Non-Af 61, BUN/Creatinine Ratio 7.3 L, Glucose 99, Calcium 8.9, Magnesium 2.1, Troponin I High Sens 6 12/22/21 14:20: B-Natriuretic Peptide 33.9 12/22/21 17:10: Troponin I High Sens 6 12/22/21 21:00: Troponin I High Sens 7 12/23/21 05:50: WBC 6.9, RBC 4.27, Hgb 11.3 L, Hct 35.6 L, MCV 83.4, MCH 26.5 L, MCHC 31.7 L, RDW Std Deviation 48.2 H, RDW Coeff of Patrick 15.9 H, Plt Count 313, MPV 9.3, Immature Gran % (Auto) 0.400, Neut % (Auto) 55.5, Lymph % (Auto) 29.9, Bradley % (Auto) 12.9 H, Eos % (Auto) 0.7, Baso % (Auto) 0.6, Absolute Neuts (auto) 3.8, Absolute Lymphs (auto) 2.06, Nucleated RBC % 0 12/23/21 05:50: Sodium 141, Potassium 3.7, Chloride 107, Carbon Dioxide 25.0, Anion Gap 9, BUN 9, Creatinine 0.99, Estim Creat Clear Calc 43.61, Est GFR (MDRD) Af Amer 72, Est GFR (MDRD) Non-Af 59 L, BUN/Creatinine Ratio 9.1 L, Glucose 99, Calcium 8.5, Triglycerides 107, Cholesterol 167, LDL Cholesterol 102, VLDL Cholesterol 21, HDL Cholesterol 44, TSH 2.81 Radiography Diagnostic Testing: Radiology Impression Chest X-Ray 12/22/21 15:19 IMPRESSION: Mild degree of vascular congestion. Electronically Signed: Siddhartha Butterfield MD at 15:32 EDT , Physical Exam Const alert and no apparent distress Cardio regular rate, regular rhythm, S1 normal heart sound and S2 normal heart sound GI normal to inspection, nondistended, normoactive bowel sounds and soft to palpation Neuro oriented x3 and CN's II-XII intact bilaterally Assessment & Plan Assessment/Plan (1) Atypical chest pain: PLAN: -Admit to PCU -CBC, BMP, Lipid profile -Chemical stress in am -Trend cardiac enzymes -Stress test negative Non-cardiac chest pain PLAN: Plan Chronic conditions: * Hypertension: vital signs per protocol. Continue Losartan * GERD: continue esomeprazole * Hyperlipidemia: Continue atorvastatin * Hypothyroidism: continue levothyroxine. TSH 2.81 * Anxiety: Continue paxil, trazodone, lorazepam * COPD: Continue montelukast, Pulmicort, azelastine DVT prophylaxis-SQ lovenox
[2021-12-23 11:04] VITALS: BP 142/67; PULSE 77; RESP 16; TEMP 37.1; O2SAT 94
[2021-12-23] MEDS: Azelastine HCl NASAL.SRY 2 SPRAY NASAL (11:05)
[2021-12-23] MEDS: Montelukast 10 MG Tablet PO (11:06)
[2021-12-23] MEDS: Pantoprazole Sodium 40 MG Tablet PO (11:06)
[2021-12-23] MEDS: Paroxetine 20 MG Tablet 40 MG PO (11:06)
[2021-12-23] MEDS: LORazepam 1 MG Tablet 2 MG PO (11:09)
--- NOTE | 2021-12-23 12:38 | STRESSREP_ITS ---
Stress Test Report Pharmacologic/Lexiscan myocardial perfusion stress test. Indication; This patient with risk factor for CAD with hypertension, hyperlipidemia Has symptoms of chest pain scheduled for Lexiscan sestamibi to assess for myocardial ischemia. Stress protocol: Resting EKG demonstrates. Normal sinus rhythm. 0.4 mg of regadenoson was infused per usual protocol followed by rapid intravenous saline flush injection continuous EKG monitoring was performed. The maximum heart rate attained was 90 bpm which was 58% of maximum predicted heart . Stress EKG showed[, no significant change from the resting EKG, with maximum heart rate of 90 bpm. Arrhythmia: No arrhythmia demonstrated Symptoms: Patient has mild symptoms of of chest pain Blood pressure at rest: 130/72 mmHg, blood pressure at the end of stress: One 4/60 2 mmHg Myocardial perfusion protocol. 15 mCi ]of Technetium 99m Sestamibi was injected at rest. [ 0.4 mg ]of Regadenoson was infused per usual protocol peak infusion 44.6 mCi ]of Technetium 99m sestamibi was injected. Stress images were obtained stress and rest images were reconstructed and compared in the short axis vertical and horizontal long axis. Gated images were also obtained Perfusion SPECT analysis: Review of the images demonstrate normal uptake of sestamibi at rest, post stress images demonstrate similar uptake of sestamibi to the resting images, homogeneous tracer uptake With no evidence of reversible myocardial ischemia. Gated SPECT analysis: The gated ejection fraction is 80%, wall motion showed hyperdynamic left ventricle. Conclusion: Negative Lexiscan sestamibi myocardial perfusion study for reversible myocardial ischemia Hyperdynamic left ventricle. Lalo Abel MD,FACC,[facility]
--- NOTE | 2021-12-23 13:10 | PCM.DC ---
Discharge Instructions Diet Discharge Diet: No restrictions Follow Up Care Test Results: Test results from this visit will be discussed in further detail at your follow-up appointment, if applicable. Discharge Plan Admission Admit Date/Time: 12/22/21 19:33 Primary Reason for Your Visit: chest pain Attending Provider: Nikolay Simpson Primary Care Provider: Olivia Gates Consulting Providers: Chaz Ortiz Discharge Orders/Prescriptions Prescriptions: Continued paroxetine HCl [Paxil] 40 MG tablet 40 mg PO DAILY trazodone 50 MG tablet 100 mg PO QHS esomeprazole magnesium [Nexium] 40 MG capsule 40 mg PO BID lorazepam 1 MG tablet 2 mg PO BID cholecalciferol (vitamin D3) 50,000 UNIT capsule 50,000 units PO KEITA Label Comments: takes q monday Rx Instructions: takes on monday albuterol sulfate 1 INHALER inhaler 1 - 2 puff INHALATION Q6H PRN PRN (Reason: Asthma) Qty: 1 0RF hydrocodone-acetaminophen [[place]] 1 EACH tablet 1 ea PO TID PRN (Reason: Pain) levothyroxine 50 MCG tablet 50 mcg PO DAILY Pulmicort Flexhaler 1 PUFF inhaler 2 puff inhalation BID Label Comments: inhale 2 puffs twice daily losartan 50 MG tablet 50 mg PO DAILY montelukast 10 MG tablet 10 mg PO DAILY albuterol sulfate [Ventolin HFA] 90 mcg/actuation HFA aerosol inhaler 1 - 2 puff inhalation Q4H PRN PRN (Reason: Wheezing) Qty: 8.5 0RF atorvastatin 40 mg Tablet 40 mg PO QHS pantoprazole 40 mg tablet,delayed release (DR/EC) 40 mg PO DAILY Label Comments: TAKE 1 TABLET BY MOUTH ONCE DAILY azelastine 137 mcg (0.1 %) aerosol,spray 2 spray intranasal BID Rx Instructions: administer into each nostril Referrals / Follow Up: Olivia Gates DO [Primary Care Provider] - Within 2 Weeks Disposition Disposition (needs filled in before D/C Order can be placed): Home, Self Care
--- NOTE | 2021-12-23 13:15 | DS.PCM_ITS ---
Providers Date of Admission: 12/22/21 Primary Care Physician: Dr. Olivia Gates DO Reason For Visit: CHEST PAIN Diagnosis Discharge Diagnosis (1) Atypical chest pain: Status: Acute Code(s): R07.89 - Other chest pain Plan: -Admit to PCU -CBC, BMP, Lipid profile -Chemical stress in am -Trend cardiac enzymes -Stress test negative Non-cardiac chest pain Plan Chronic conditions: * Hypertension: vital signs per protocol. Continue Losartan * GERD: continue esomeprazole * Hyperlipidemia: Continue atorvastatin * Hypothyroidism: continue levothyroxine. TSH 2.81 * Anxiety: Continue paxil, trazodone, lorazepam * COPD: Continue montelukast, Pulmicort, azelastine DVT prophylaxis-SQ lovenox Medications at Discharge Home Medications paroxetine HCl 40 mg tablet (Paxil) 40 mg PO DAILY depression 01/29/13 trazodone 50 mg tablet 100 mg PO QHS sleep 01/29/13 esomeprazole magnesium 40 mg capsule,delayed release (Nexium) 40 mg PO BID GERD 05/16/14 lorazepam 1 mg tablet 2 mg PO BID anxiety 10/11/16 cholecalciferol (vitamin D3) 1,250 mcg (50,000 unit) capsule 50,000 units PO KEITA Vit D deficiency 05/20/17 albuterol sulfate 90 mcg/actuation aerosol inhaler 1 - 2 puff inhalation Q6H PRN PRN Asthma ##1 05/23/17 hydrocodone-acetaminophen 5-325mg 5mg-325mg ([place]) 1 ea PO TID PRN Pain 06/22/17 budesonide 180 mcg/actuation breath activated powder inhaler (Pulmicort Flexhaler) 2 puff inhalation BID SOB/wheezing 12/13/17 levothyroxine 50 mcg tablet 50 mcg PO DAILY thyroid 12/13/17 losartan 50 mg tablet 50 mg PO DAILY blood pressure 07/04/20 montelukast 10 mg tablet 10 mg PO DAILY allergies 07/04/20 albuterol sulfate 90 mcg/actuation aerosol inhaler (Ventolin HFA) 1 - 2 puff inhalation Q4H PRN PRN Wheezing #8.5 grams 04/13/21 atorvastatin 40 mg tablet 40 mg PO QHS cholesterol 12/22/21 azelastine 137 mcg (0.1 %) nasal spray aerosol 2 spray intranasal BID antihistamine 12/22/21 pantoprazole 40 mg tablet,delayed release 40 mg PO DAILY acid reflux 12/22/21 Hospital Course Operations None Procedures Stress test Weight / BMI Weight Weight: 103.1 kg Body Mass Index (BMI) 41.5 ABG / Lab / Microbiology Data Result Diagrams: 12/23/21 05:50 12/23/21 05:50 Laboratory: Laboratory Results - last 24 hr 12/22/21 14:20: WBC 10.3, RBC 4.69, Hgb 12.0, Hct 39.0, MCV 83.2, MCH 25.6 L, MCHC 30.8 L, RDW Std Deviation 47.7 H, RDW Coeff of Patrick 15.9 H, Plt Count 379, MPV 9.3, Immature Gran % (Auto) 0.600, Neut % (Auto) 68.1, Lymph % (Auto) 19.8, [place] % (Auto) 9.5, Eos % (Auto) 1.4, Baso % (Auto) 0.6, Absolute Neuts (auto) 7.0, Absolute Lymphs (auto) 2.04, Nucleated RBC % 0 12/22/21 14:20: D-Dimer Quant (PE/DVT) 0.67 H* 12/22/21 14:20: Sodium 140, Potassium 3.5, Chloride 104, Carbon Dioxide 28.0, Anion Gap 8, BUN 7, Creatinine 0.96, Estim Creat Clear Calc 44.98, Est GFR (MDRD) Af Amer 74, Est GFR (MDRD) Non-Af 61, BUN/Creatinine Ratio 7.3 L, Glucose 99, Calcium 8.9, Magnesium 2.1, Troponin I High Sens 6 12/22/21 14:20: B-Natriuretic Peptide 33.9 12/22/21 17:10: Troponin I High Sens 6 12/22/21 21:00: Troponin I High Sens 7 12/23/21 05:50: WBC 6.9, RBC 4.27, Hgb 11.3 L, Hct 35.6 L, MCV 83.4, MCH 26.5 L, MCHC 31.7 L, RDW Std Deviation 48.2 H, RDW Coeff of Patrick 15.9 H, Plt Count 313, MPV 9.3, Immature Gran % (Auto) 0.400, Neut % (Auto) 55.5, Lymph % (Auto) 29.9, [place] % (Auto) 12.9 H, Eos % (Auto) 0.7, Baso % (Auto) 0.6, Absolute Neuts (auto) 3.8, Absolute Lymphs (auto) 2.06, Nucleated RBC % 0 12/23/21 05:50: Sodium 141, Potassium 3.7, Chloride 107, Carbon Dioxide 25.0, Anion Gap 9, BUN 9, Creatinine 0.99, Estim Creat Clear Calc 43.61, Est GFR (MDRD) Af Amer 72, Est GFR (MDRD) Non-Af 59 L, BUN/Creatinine Ratio 9.1 L, Glucose 99, Calcium 8.5, Triglycerides 107, Cholesterol 167, LDL Cholesterol 102, VLDL Cholesterol 21, HDL Cholesterol 44, TSH 2.81 Radiography Diagnostic Testing: Radiology Impression Chest X-Ray 12/22/21 15:19 IMPRESSION: Mild degree of vascular congestion. Electronically Signed: Siddhartha Butterfield MD at 15:32 EDT , Echocardiogram 12/22/21 22:24 Interpretation Summary The estimated ejection fraction is 55-60 %. No significant changes from previous Echo Ordering Physician: Chaz Ortiz Referring Physician: Olivia Gates Performed By: Amparo Hendricks RDCS D/C Instructions Discharge Diet: No restrictions Meaningful Use Info Meaningful Use Diagnoses (Choose all that apply): None applicable Discharge Plan Admission Admit Date/Time: 12/22/21 19:33 Primary Reason for Your Visit: chest pain Attending Provider: Nikolay Simpson Primary Care Provider: Olivia Gates Consulting Providers: Chaz Ortiz Discharge Orders/Prescriptions Prescriptions: Continued paroxetine HCl [Paxil] 40 MG tablet 40 mg PO DAILY trazodone 50 MG tablet 100 mg PO QHS esomeprazole magnesium [Nexium] 40 MG capsule 40 mg PO BID lorazepam 1 MG tablet 2 mg PO BID cholecalciferol (vitamin D3) 50,000 UNIT capsule 50,000 units PO KEITA Label Comments: takes q monday Rx Instructions: takes on monday albuterol sulfate 1 INHALER inhaler 1 - 2 puff INHALATION Q6H PRN PRN (Reason: Asthma) Qty: 1 0RF hydrocodone-acetaminophen [[place]] 1 EACH tablet 1 ea PO TID PRN (Reason: Pain) levothyroxine 50 MCG tablet 50 mcg PO DAILY Pulmicort Flexhaler 1 PUFF inhaler 2 puff inhalation BID Label Comments: inhale 2 puffs twice daily losartan 50 MG tablet 50 mg PO DAILY montelukast 10 MG tablet 10 mg PO DAILY albuterol sulfate [Ventolin HFA] 90 mcg/actuation HFA aerosol inhaler 1 - 2 puff inhalation Q4H PRN PRN (Reason: Wheezing) Qty: 8.5 0RF atorvastatin 40 mg Tablet 40 mg PO QHS pantoprazole 40 mg tablet,delayed release (DR/EC) 40 mg PO DAILY Label Comments: TAKE 1 TABLET BY MOUTH ONCE DAILY azelastine 137 mcg (0.1 %) aerosol,spray 2 spray intranasal BID Rx Instructions: administer into each nostril Referrals / Follow Up: Olivia Gates DO [Primary Care Provider] - Within 2 Weeks Disposition Disposition (needs filled in before D/C Order can be placed): Home, Self Care Charges/Coding Visit Charges OBSV E&M: 68663 Observation care discharge
== END 2021-12-23 13:15 | disposition home or self-care (01) ==
LOC: ED 18:34 → PCU 20:06
PROVIDERS: Nurse Practitioner Family; Admitting Provider Internal Medicine; Emergency Provider Emergency Medicine; PCP Family Medicine
DX: R07.89 Other chest pain (principal); M06.9 Rheumatoid arthritis, unspecified; J44.9 Chronic obstructive pulmonary disease, unspecified; G89.29 Other chronic pain; E03.9 Hypothyroidism, unspecified; Z79.51 Long term (current) use of inhaled steroids; R42 Dizziness and giddiness; I10 Essential (primary) hypertension; F32.A Depression, unspecified; R06.02 Shortness of breath; K21.9 Gastro-esophageal reflux disease without esophagitis; Z79.899 Other long term (current) drug therapy; F41.9 Anxiety disorder, unspecified; G47.33 Obstructive sleep apnea (adult) (pediatric)
CPT/HCPCS: 36415; 71045; 71046; 78452; 80048; 80061; 83735; 83880; 84443; 84484; 85025; 85379; 93005; 93017; 93306; 94640; 99218; 99285; A9500; A4216; G0378; J2785

== ENCOUNTER 2022-05-06 15:48 | Emergency (ER) | payer MEDICARE, MEDICAID, SELFPAY ==
[2022-05-06 15:48] VITALS: BP 154/100; PULSE 84; RESP 18; TEMP 36; O2SAT 98; BMI 40.1
--- NOTE | 2022-05-06 16:09 | VDLE_ITS ---
Reason For Study: Pain RIGHT LEFT GSV is normal. CFV is compressible, spontaneous, phasic, CFV is compressible, spontaneous, phasic, competent, and demonstrates normal competent and demonstrates normal augmentation. augmentation. FV is compressible, spontaneous, phasic, competent and demonstrates normal augmentation. POP V is compressible, spontaneous, phasic, competent and demonstrates normal augmentation. T/P Trunk is compressible. PTV is compressible. RT PerV is compressible. Procedure This is a venous duplex using B-mode, color flow and spectral Doppler. Exam performed in department. A preliminary report was called and/or faxed to ED RN. VL/Venous Duplex US, Unilateral Interpretation Summary Deep veins of the right lower extremity are patent and compressible segmentally . There is no evidence of right lower extremity deep vein thrombosis. The right great [place] us vein appears patent and compressible segmentally. Ordering Physician: Dieog Weaver Referring Physician: Olivia Gates Performed By: Stacey Wakefield RVT
--- NOTE | 2022-05-06 16:40 | RAD_ITS ---
INDICATION: Right knee pain for months, no known injury EXAMINATION/TECHNIQUE: X-RAY - RIGHT XR Knee 3 Views 3 VIEWS COMPARISON: 03/20/2019 FINDINGS: SOFT TISSUES: No soft tissue swelling or gas. No radiopaque foreign body. BONES/JOINTS: No acute fracture. Stable moderate degenerative changes. No sclerotic or destructive changes observed. RAD/Knee 3 Views IMPRESSION: Stable degenerative changes. Electronically Signed: Rayray Vazquez MD at 17:06 EST ,
--- NOTE | 2022-05-06 16:51 | EDS_ITS ---
HPI History of Present Illness Chief Complaint: Lower Extremity Injury Informant: patient Narrative Narrative: Nontraumatic right knee pain for last month worsening last 4 days. Patient hydrocodone for history of back pain. No recent travel or surgeries or immob ilizations. No history of PE or DVT. No chest pains. No dyspnea. Using cane for assistance. Has not seen a healthcare provider since onset of symptoms. No catching or locking of the knee. No swelling or paresthesias. Prior similar symptoms: No PFSH PFSH Medical History Anxiety Asthma Bronchitis Chronic back pain Depression GERD (gastroesophageal reflux disease) HTN (hypertension) Hypothyroidism RAJNI (obstructive sleep apnea) Pulmonary hypertension Rheumatoid arthritis Home Medications paroxetine HCl 40 mg tablet (Paxil) 40 mg PO DAILY depression 01/29/13 [History Last Taken 12/22/21] trazodone 50 mg tablet 100 mg PO QHS sleep 01/29/13 [History Last Taken 12/21/21] esomeprazole magnesium 40 mg capsule,delayed release (Nexium) 40 mg PO BID GERD 05/16/14 [History Last Taken 12/22/21] lorazepam 1 mg tablet 2 mg PO BID anxiety 10/11/16 [History Last Taken 12/22/21] cholecalciferol (vitamin D3) 1,250 mcg (50,000 unit) capsule 50,000 units PO KEITA Vit D deficiency 05/20/17 [History Last Taken 12/19/21] albuterol sulfate 90 mcg/actuation aerosol inhaler 1 - 2 puff inhalation Q6H PRN PRN Asthma ##1 05/23/17 [Rx Last Taken 06/16/18] hydrocodone-acetaminophen 5-325mg 5mg-325mg (Cable) 1 ea PO TID PRN Pain 06/22/17 [History Last Taken 12/21/21] budesonide 180 mcg/actuation breath activated powder inhaler (Pulmicort Flexhaler) 2 puff inhalation BID SOB/wheezing 12/13/17 [History Last Taken 12/21/21] levothyroxine 50 mcg tablet 50 mcg PO DAILY thyroid 12/13/17 [History Last Taken 12/21/21] losartan 50 mg tablet 50 mg PO DAILY blood pressure 07/04/20 [History Last Taken 12/22/21] montelukast 10 mg tablet 10 mg PO DAILY allergies 07/04/20 [History Last Taken 12/22/21] albuterol sulfate 90 mcg/actuation aerosol inhaler (Ventolin HFA) 1 - 2 puff inhalation Q4H PRN PRN Wheezing #8.5 grams 04/13/21 [Rx Last Taken Unknown] atorvastatin 40 mg tablet 40 mg PO QHS cholesterol 12/22/21 [History Last Taken 12/21/21] azelastine 137 mcg (0.1 %) nasal spray aerosol 2 spray intranasal BID antihistamine 12/22/21 [History Last Taken 12/21/21] pantoprazole 40 mg tablet,delayed release 40 mg PO DAILY acid reflux 12/22/21 [History Last Taken 12/22/21] Allergy/AdvReac Type Severity Reaction Status Date / Time lisinopril AdvReac Other Verified 05/06/22 15:50 Family History Father Cancer Mother Cancer Sister Cancer Brother Cancer Surgical History History of back surgery History of cholecystectomy History of hernia repair History of hysterectomy Social History Smoking Status: Never smoker second hand exposure: No alcohol intake: never substance use type: does not use ROS ROS ED Constitutional Constitutional ED: Denies chills, fever(s) or sweats Eyes Eyes: Denies change in vision ENT ENT ED: Denies dysphagia or sore throat Cardiovascular Cardiovascular: Denies chest pain, leg edema, palpitations or racing heartbeat Respiratory/Chest Respiratory/Chest: Denies cough, dyspnea or dyspnea on exertion Gastrointestinal Gastrointestinal: Denies abdominal pain, diarrhea, nausea or vomiting Genitourinary Genitourinary ED: Denies dysuria, hematuria or urinary frequency Musculoskeletal Musculoskeletal: Reports extremity pain and other Details: Right knee and leg pain ; Denies back pain or neck pain Integumentary Denies rash or wounds Neurologic Neurologic: Denies headache(s), paresthesias or weakness EXAM Physical Exam Const Vital Signs: 05/06/22 15:48 Temperature 96.8 F L Temperature Source Temporal Pulse Rate 84 Respiratory Rate 18 Blood Pressure 154/100 H Blood Pressure Mean 118 Pulse Ox 98 Oxygen Delivery Method Room Air Positive well nourished and well developed General Appearance ED: well developed and NAD HEENT Reports moist mucous membranes normocephalic and atraumatic Eyes PERRL, EOMs intact bilaterally and conjunctivae normal General Eye ED: Yes normal appearance of both eyes Neck no lymphadenopathy and supple General: Negative for tenderness Chest Wall Chest: Negative for tenderness Resp normal respiratory effort and normal air movement Effort and Inspection: symmetric chest movement; Negative for respiratory distress Cardio regular rate, regular rhythm and no murmurs Peripheral Pulses: pulses 2+ throughout GI normal to inspection, nondistended, normoactive bowel sounds and non-tender Palpation: Negative for guarding or rebound tenderness present Back/Spine no CVA tenderness and no thoracic nor lumbar tenderness Extremity Extremity Narrative: Right lower extremity negative logroll. Knee extensor intact no varus and valgus. No swelling. Negative Priscila's. There is tenderness along the medial distal aspect of the femur reproducible there is no rash. No nodules palpated. No calf tenderness. No popliteal tenderness. Neuro vas intact distally. General Extremety ED: Yes tenderness; Negative for edema General Extremity: Negative for edema Neuro oriented x3 and no sensory deficits noted Sensorium / Orientation: awake and alert Skin no rashes or lesions noted and no wounds MDM MDM MDM Narrative Medical decision making narrative: Patient presenting with left knee pain however more pain around the medial aspect of the distal femur. Differential DVT versus muscle strain. No locking of the knee for any meniscus injury along with a negative Priscila's. Knee extensor intact therefore low suspicion for any tendon or ligamentous injuries. 4 view x-ray right knee interpreted by myself and read by radiology degenerative changes. DVT studies per contract technician negative for acute process. Patient is reassured. Andrea wrap provided to help with support. She is using a cane to walk. She is on hydrocodone. She will follow-up with her PCP. All questions were answered. Radiography Diagnostic Testing: Clinical Impression(s) from Imaging Studies Knee X-Ray 05/06/22 16:40 IMPRESSION: Stable degenerative changes. Electronically Signed: Rayray Vazquez MD at 17:06 EST Reading Location ID and State: [facility] / [place] Tel , Service support , Discharge Plan Triage Chief Complaint: Lower Extremity Injury ED Provider: Diego Weaver Dx/Rx/DC Orders Clinical Impression: Arthritis of knee, right, Muscle strain Instructions: Self-Care for Strains and Sprains, Osteoarthritis Prescriptions: No Action paroxetine HCl [Paxil] 40 MG tablet 40 mg PO DAILY trazodone 50 MG tablet 100 mg PO QHS esomeprazole magnesium [Nexium] 40 MG capsule 40 mg PO BID lorazepam 1 MG tablet 2 mg PO BID cholecalciferol (vitamin D3) 50,000 UNIT capsule 50,000 units PO KEITA Label Comments: takes q monday Rx Instructions: takes on monday albuterol sulfate 1 INHALER inhaler 1 - 2 puff INHALATION Q6H PRN PRN (Reason: Asthma) Qty: 1 0RF hydrocodone-acetaminophen [[place]] 1 EACH tablet 1 ea PO TID PRN (Reason: Pain) levothyroxine 50 MCG tablet 50 mcg PO DAILY Pulmicort Flexhaler 1 PUFF inhaler 2 puff inhalation BID Label Comments: inhale 2 puffs twice daily losartan 50 MG tablet 50 mg PO DAILY montelukast 10 MG tablet 10 mg PO DAILY albuterol sulfate [Ventolin HFA] 90 mcg/actuation HFA aerosol inhaler 1 - 2 puff inhalation Q4H PRN PRN (Reason: Wheezing) Qty: 8.5 0RF atorvastatin 40 mg Tablet 40 mg PO QHS pantoprazole 40 mg tablet,delayed release (DR/EC) 40 mg PO DAILY Label Comments: TAKE 1 TABLET BY MOUTH ONCE DAILY azelastine 137 mcg (0.1 %) aerosol,spray 2 spray intranasal BID Rx Instructions: administer into each nostril Primary Care Provider: Olivia Gates Referrals: Olivia Gates DO [Primary Care Provider] - 3-5 Days Activity Restrictions/Additional Instructions: DVT study negative. Knee x-ray notes arthritic changes. Continue your home hydrocodone. Follow-up with your doctor. Disposition Disposition: Home, Self Care Discharge Date/Time: 05/06/22 18:43
== END 2022-05-06 18:43 | disposition home or self-care (01) ==
PROVIDERS: Emergency Provider Emergency Medicine; PCP Family Medicine; Visit Provider Emergency Medicine
DX: M17.11 Unilateral primary osteoarthritis, right knee (principal); I10 Essential (primary) hypertension; M79.604 Pain in right leg
CPT/HCPCS: 73562; 93971; 99282

== ENCOUNTER 2022-06-10 12:23 | Emergency (ER) | payer MEDICARE, SELFPAY ==
[2022-06-10] VITALS (7 sets, daily range): BP systolic 134–158; BP diastolic 54–77; PULSE 60–70; RESP 13–19; TEMP 36.6–36.9; O2SAT 95–97; BMI 39.9
--- NOTE | 2022-06-10 12:42 | CT_ITS ---
STUDY: CT BRAIN WITHOUT CONTRAST REASON FOR EXAM: Female, 67 years old. Headache RADIATION DOSAGE (If Supplied By Facility): CTDIvol = ( 47.06 ) mGy, DLP = ( 837.39 ) mGycm TECHNIQUE: Transaxial CT imaging of the brain was performed without administration of intravenous contrast material. Individualized dose optimization techniques were used for this CT. COMPARISON: Comparison is made with prior study of July 04, 2020. FINDINGS: Normal soft tissue structures. Normal calvarium. There is mild cerebral atrophy with widening of the extra-axial spaces and ventricular dilatation. Normal white matter tracts of the cerebral hemispheres. Normal basal ganglia and thalami. Normal brainstem. Normal cerebellum. There is no intracranial hemorrhage. There are no findings of an acute ischemic infarction. Normal visualized paranasal sinuses. CT/Brain/Head without Contrast IMPRESSION: Chronic involutional changes of the brain. Electronically Signed: Siddhartha Butterfield MD at 13:55 EST ,
--- NOTE | 2022-06-10 12:43 | EKG12_ITS ---
Test Reason : HIGH BP Blood Pressure : / mmHG Vent. Rate : 060 BPM Atrial Rate : 060 BPM P-R Int : 174 ms QRS Dur : 080 ms QT Int : 478 ms P-R-T Axes : 035 029 050 degrees QTc Int : 478 ms Normal sinus rhythm Normal ECG Confirmed by ELEUTERIO OZUNA, RASHARD ([id number]), editor at large HARSHA GUSTAFSON ([id number]) on 06/13/2022 1:56:02 PM Referred By: Confirmed By:RASHARD MCCLELLAN MD
--- NOTE | 2022-06-10 12:47 | EDS_ITS ---
HPI History of Present Illness Chief Complaint: Hypertension Informant: patient Onset/Context/Timing Onset: Yesterday Context: Gradual Onset Timing: Continuous Quality: Pressure, lightheaded Location: Head Worsened by: Head movements Relieved by: Nothing Narrative Narrative: Patient presents with dizziness and confusion that began yesterday. Patient states she thought her blood sugar was low. Patient states EMS checked her blood sugar and it was normal at 122. Patient states she feels lightheaded and has a pressure sensation in her head. Patient states her dizziness is worse with certain movements. Patient denies any spinning sensation. Patient does admit to some bilateral ear pain that is intermittent. Patient is also admits to some intermittent tinnitus. Patient denies any hearing changes. Patient does admit to some occasional shortness of breath but denies any cough. PFSH PFS Medical History Anxiety Asthma Bronchitis Chronic back pain Depression GERD (gastroesophageal reflux disease) HTN (hypertension) Hypothyroidism RAJNI (obstructive sleep apnea) Pulmonary hypertension Rheumatoid arthritis Home Medications paroxetine HCl 40 mg tablet (Paxil) 40 mg PO DAILY depression 01/29/13 [History Last Taken 12/22/21] trazodone 50 mg tablet 100 mg PO QHS sleep 01/29/13 [History Last Taken 12/21/21] esomeprazole magnesium 40 mg capsule,delayed release (Nexium) 40 mg PO BID GERD 05/16/14 [History Last Taken 12/22/21] lorazepam 1 mg tablet 2 mg PO BID anxiety 10/11/16 [History Last Taken 12/22/21] cholecalciferol (vitamin D3) 1,250 mcg (50,000 unit) capsule 50,000 units PO EKITA Vit D deficiency 05/20/17 [History Last Taken 12/19/21] albuterol sulfate 90 mcg/actuation aerosol inhaler 1 - 2 puff inhalation Q6H PRN PRN Asthma ##1 05/23/17 [Rx Last Taken 06/16/18] hydrocodone-acetaminophen 5-325mg 5mg-325mg ([place]) 1 ea PO TID PRN Pain 06/22/17 [History Last Taken 12/21/21] budesonide 180 mcg/actuation breath activated powder inhaler (Pulmicort Flexhaler) 2 puff inhalation BID SOB/wheezing 12/13/17 [History Last Taken 12/21/21] levothyroxine 50 mcg tablet 50 mcg PO DAILY thyroid 12/13/17 [History Last Taken 12/21/21] losartan 50 mg tablet 50 mg PO DAILY blood pressure 07/04/20 [History Last Taken 12/22/21] montelukast 10 mg tablet 10 mg PO DAILY allergies 07/04/20 [History Last Taken 12/22/21] albuterol sulfate 90 mcg/actuation aerosol inhaler (Ventolin HFA) 1 - 2 puff inhalation Q4H PRN PRN Wheezing #8.5 grams 04/13/21 [Rx Last Taken Unknown] atorvastatin 40 mg tablet 40 mg PO QHS cholesterol 12/22/21 [History Last Taken 12/21/21] azelastine 137 mcg (0.1 %) nasal spray aerosol 2 spray intranasal BID antihistamine 12/22/21 [History Last Taken 12/21/21] pantoprazole 40 mg tablet,delayed release 40 mg PO DAILY acid reflux 12/22/21 [History Last Taken 12/22/21] cephalexin 500 mg capsule 500 mg PO Q6 #20 CAPSULES 06/10/22 [Rx Last Taken Unknown] meclizine 25 mg tablet 25 mg PO 4X/DAY PRN PRN Dizziness #20 tabs 06/10/22 [Rx Last Taken Unknown] Allergy/AdvReac Type Severity Reaction Status Date / Time lisinopril AdvReac Other Verified 06/10/22 12:29 Family History Father Cancer Mother Cancer Sister Cancer Brother Cancer Surgical History History of back surgery History of cholecystectomy History of hernia repair History of hysterectomy Social History Smoking Status: Never smoker second hand exposure: No alcohol intake: never substance use type: does not use ROS ROS ED Constitutional Constitutional ED: Denies chills or fever(s) Eyes Eyes: Denies blurry vision or change in vision ENT ENT ED: Reports ear pain bilateral; Denies rhinorrhea or sore throat Cardiovascular Cardiovascular: Denies chest pain or palpitations Respiratory/Chest Respiratory/Chest: Reports dyspnea; Denies cough Gastrointestinal Gastrointestinal: Denies nausea or vomiting Genitourinary Genitourinary ED: Denies dysuria or hematuria Musculoskeletal Musculoskeletal: Reports back pain; Denies neck pain Integumentary Denies abscess or rash Neurologic Neurologic: Reports headache(s); Denies weakness Allergic/Immunologic Allergic/Immunologic ED: Denies mouth swelling or urticaria EXAM Physical Exam Const Vital Signs: 06/10/22 12:24 06/10/22 12:28 06/10/22 12:29 Temperature 98.1 F 98.1 F Temperature Source Oral Oral Pulse Rate 65 65 Pulse Rate [Lying] Pulse Rate [Sitting (for 1 minute prior to obtaining)] Pulse Rate [Standing (for 1 minute prior to obtaining)] Respiratory Rate 14 19 H Respiratory Effort Normal Non-Labored Respiratory Pattern Normal Blood Pressure 157/65 H 157/65 H Blood Pressure [Lying] Blood Pressure [Sitting (for 1 minute prior to obtaining)] Blood Pressure [Standing (for 1 minute prior to obtaining)] Blood Pressure Mean 95 95 Blood Pressure Mean [Lying] Blood Pressure Mean [Sitting (for 1 minute prior to obtaining)] Blood Pressure Mean [Standing (for 1 minute prior to obtaining)] Pulse Ox 96 97 Oxygen Delivery Method Room Air Room Air 06/10/22 13:29 06/10/22 14:09 06/10/22 14:30 Temperature 98.4 F 97.9 F Temperature Source Oral Oral Pulse Rate 64 63 67 Pulse Rate [Lying] Pulse Rate [Sitting (for 1 minute prior to obtaining)] Pulse Rate [Standing (for 1 minute prior to obtaining)] Respiratory Rate 13 16 18 Respiratory Effort Respiratory Pattern Blood Pressure 153/68 H 151/70 H 134/65 H Blood Pressure [Lying] Blood Pressure [Sitting (for 1 minute prior to obtaining)] Blood Pressure [Standing (for 1 minute prior to obtaining)] Blood Pressure Mean 96 97 88 Blood Pressure Mean [Lying] Blood Pressure Mean [Sitting (for 1 minute prior to obtaining)] Blood Pressure Mean [Standing (for 1 minute prior to obtaining)] Pulse Ox 96 97 97 Oxygen Delivery Method Room Air Room Air Room Air 06/10/22 14:48 Temperature Temperature Source Pulse Rate Pulse Rate [Lying] 70 Pulse Rate [Sitting (for 1 minute prior to obtaining)] 67 Pulse Rate [Standing (for 1 minute prior to obtaining)] 67 Respiratory Rate Respiratory Effort Respiratory Pattern Blood Pressure Blood Pressure [Lying] 147/54 H Blood Pressure [Sitting (for 1 minute prior to obtaining)] 158/77 H Blood Pressure [Standing (for 1 minute prior to obtaining)] 148/76 H Blood Pressure Mean Blood Pressure Mean [Lying] 85 Blood Pressure Mean [Sitting (for 1 minute prior to obtaining)] 104 Blood Pressure Mean [Standing (for 1 minute prior to obtaining)] 100 Pulse Ox Oxygen Delivery Method Positive well nourished and well developed General Appearance ED: well developed HEENT Reports moist mucous membranes Eyes PERRL and EOMs intact bilaterally Eyes Narrative: There is brief nystagmus with lateral gaze. Patient states this does make her feel dizzy. Neck supple and no JVD Resp normal respiratory effort and clear to auscultation bilaterally Cardio regular rate and regular rhythm GI normal to inspection, nondistended, normoactive bowel sounds and non-tender Palpation: soft Extremity normal to inspection General Extremety ED: Negative for edema or tenderness General Extremity: Negative for edema Neuro oriented x3, CN's II-XII intact bilaterally and no sensory deficits noted Sensorium / Orientation: alert Motor Exam: strength 5/5 throughout Psych mental status grossly normal Skin no rashes or lesions noted MDM MDM MDM Narrative Medical decision making narrative: Differential diagnosis includes vertigo, stroke, electrolyte abnormality, hypertensive urgency, urinary tract infection, cardiac dysrhythmia, and cardiac ischemia. EKG will be obtained to assess for cardiac dysrhythmia and cardiac ischemia. CT scan of the brain will be obtained to assess for stroke and intracranial bleeding. CBC will be obtained to assess for leukocytosis and anemia. Comprehensive metabolic profile will be obtained to assess for virgilio ctrolyte abnormality, renal function, and hepatic function. High-sensitivity troponin will be obtained to assess for cardiac ischemia. Urinalysis will be obtained to assess for urinary tract infection and hematuria. Lab Data Attestation: I reviewed the patient's lab results. Lab results narrative: CBC was reviewed and was within normal limits. Comprehensive metabolic profile was reviewed and was within normal limits. Urinalysis was reviewed. Leukocyte esterase was 100. There were 10-25 white blood cells. There is 1+ bacteria. The remainder was within normal limits. Labs: Laboratory Results - last 24 hr 06/10/22 06/10/22 06/10/22 12:08 12:08 14:15 WBC 9.5 RBC 4.89 Hgb 12.5 Hct 41.1 MCV 84.0 MCH 25.6 L MCHC 30.4 L RDW Std Deviation 47.6 H RDW Coeff of Patrick 15.6 H Plt Count 382 MPV 9.4 Immature Gran % (Auto) 0.300 Neut % (Auto) 35.3 L Lymph % (Auto) 54.5 H [place] % (Auto) 6.8 Eos % (Auto) 2.6 Baso % (Auto) 0.5 Absolute Neuts (auto) 3.4 Absolute Lymphs (auto) 5.20 H Nucleated RBC % 0 Differential Comment SCANNED Reactive Lymphocytes 1+ Sodium 139 Potassium 3.9 Chloride 105 Carbon Dioxide 27.0 Anion Gap 7 BUN 16 Creatinine 0.92 Estim Creat Clear Calc 50.54 Est GFR (MDRD) Af Amer 78 Est GFR (MDRD) Non-Af 64 BUN/Creatinine Ratio 17.4 Glucose 103 Calcium 8.9 Total Bilirubin 0.20 AST 45 H ALT 39 Alkaline Phosphatase 109 Troponin I High Sens 7 Total Protein 7.7 Albumin 3.5 Globulin 4.2 Albumin/Globulin Ratio 0.8 L Urine Color Yellow Urine Clarity Sl. Cloudy Urine pH 7.0 Ur Specific [place] 1.010 Urine Protein Negative Urine Glucose (UA) Normal Urine Ketones Negative Urine Occult Blood Negative Urine Nitrite Negative Urine Bilirubin Negative Urine Urobilinogen Normal Ur Leukocyte Esterase 100 H Urine RBC 0 SEEN Urine WBC 10-25 SEEN Ur Squamous Epith Cells 0-5 SEEN Urine Bacteria 1+ Urine Mucus 0 SEEN Radiography Diagnostic Testing: Clinical Impression(s) from Imaging Studies Brain CT 06/10/22 12:42 IMPRESSION: Chronic involutional changes of the brain. Electronically Signed: Siddhartha Butterfield MD at 13:55 EST , CT scan of the brain was obtained. There is no acute intracranial abnormality. There are chronic involutional changes noted. This was interpreted by the radiologist and was also independently reviewed by myself. EKG Initial EKG: Attestation: I personally reviewed and interpreted this EKG as follows: Interpretation: Sinus Rhythm (60) and No Acute Injury Pattern Comments: EKG was obtained. On my independent interpretation, it showed a normal sinus rhythm with a rate of 60. IN interval, QRS interval, and QTc intervals were all normal. [place] was normal. There are no acute ST or T wave changes. Prior EKG tracings: available for review Prior: Unchanged (12/23/2021) Differential Diagnosis Chest pain/SOB: pulmonary embolism Reason(s) PE less likely: Positive for Well's <3, not tachycardic and not hypoxic, ACS, pneumothorax Reason(s) pneumothorax less likely: Positive for bilateral breath sounds, pneumonia Reason(s) pneumonia less likely: Positive for no noted fever and symptoms not consistent with acute infection, aortic dissection Reason(s) Aortic dissection less likely:: Positive for normal vascular exam, normal neurological exam, no ripping/tearing pain and no pain to back and CHF Reason(s) CHF less likely: Positive for no significant peripheral edema and no orthopnea Treatment and Re-Evaluation :: Patient was given a dose of meclizine here. Patient is feeling better. Patient no longer has any dizziness with movement of her head. Patient was given a dose of Keflex here. Patient was given a prescription for Keflex. Urine culture was ordered. Patient was instructed to drink plenty of fluids. Patient was instructed to follow-up with her primary care physician in 5 to 7 days. Patient understood and was agreeable with the plan. All questions were answered. Discharge Plan Triage Chief Complaint: Hypertension ED Provider: Nikolay Abdalla Dx/Rx/DC Orders Clinical Impression: Vertigo, Urinary tract infection Instructions: ED Cystitis Female Adult, ED Vertigo, Unspecified Prescriptions: New cephalexin [cephalexin] 500 mg capsule 500 mg PO Q6 Qty: 20 0RF meclizine [meclizine] 25 mg tablet 25 mg PO 4X/DAY PRN PRN (Reason: Dizziness) Qty: 20 0RF No Action paroxetine HCl [Paxil] 40 MG tablet 40 mg PO DAILY trazodone 50 MG tablet 100 mg PO QHS esomeprazole magnesium [Nexium] 40 MG capsule 40 mg PO BID lorazepam 1 MG tablet 2 mg PO BID cholecalciferol (vitamin D3) 50,000 UNIT capsule 50,000 units PO KEITA Label Comments: takes q monday Rx Instructions: takes on monday albuterol sulfate 1 INHALER inhaler 1 - 2 puff INHALATION Q6H PRN PRN (Reason: Asthma) Qty: 1 0RF hydrocodone-acetaminophen [[place]] 1 EACH tablet 1 ea PO TID PRN (Reason: Pain) levothyroxine 50 MCG tablet 50 mcg PO DAILY Pulmicort Flexhaler 1 PUFF inhaler 2 puff inhalation BID Label Comments: inhale 2 puffs twice daily losartan 50 MG tablet 50 mg PO DAILY montelukast 10 MG tablet 10 mg PO DAILY albuterol sulfate [Ventolin HFA] 90 mcg/actuation HFA aerosol inhaler 1 - 2 puff inhalation Q4H PRN PRN (Reason: Wheezing) Qty: 8.5 0RF atorvastatin 40 mg Tablet 40 mg PO QHS pantoprazole 40 mg tablet,delayed release (DR/EC) 40 mg PO DAILY Label Comments: TAKE 1 TABLET BY MOUTH ONCE DAILY azelastine 137 mcg (0.1 %) aerosol,spray 2 spray intranasal BID Rx Instructions: administer into each nostril Primary Care Provider: Olivia Gates Referrals: Olivia Gates DO [Primary Care Provider] - 5-7 Days Disposition Disposition: Home, Self Care
[2022-06-10 12:55] LABS: Absolute Neutrophil Count 3.4 X10^3/uL (2.0-7.7); Basophil# 0.05 X10^3/uL; Basophil% 0.5 % (0-1); Eosinophil# 0.25 X10^3/uL; Eosinophils% 2.6 % (0-5); Hematocrit 41.1 % (37-47); Hemoglobin 12.5 g/dL (12.0-15.0); Lymphocyte % 54.5 % (19-41); Mean Corp Hgb Conc 30.4 g/dL (32-36); Mean Corpuscular Hgb 25.6 pg (27.0-32.0); Mean Platelet Vol. 9.4 fl (6.2-12.0); Monocyte# 0.65 X10^3/uL; Monocyte% 6.8 % (0-10); NRBC Flagged by Analyzer 0 % (0-5); Neutrophil # 3.36 X10^3/uL (2.7-7.7); Neutrophil % 35.3 % (47-70); POSITIVE DIFFERENTIAL YES; Platelet Count 382 K/mm3 (150-450); RBC Distribution Width CV 15.6 % (11.6-14.6); RBC Distribution Width SD 47.6 fl (35.1-43.9); Red Blood Count 4.89 M/mm3 (4.2-5.4); White Blood Count 9.5 K/mm3 (4.4-11.0)
[2022-06-10 12:58] LABS: Differential Indicated SCAN CRITERIA MET
[2022-06-10 13:17] LABS: ALB/GLOB Ratio 0.8 RATIO (0.9-2.4); AST(SGOT) 45 U/L (15-37); Alanine Aminotransfer ALT/SGPT 39 U/L (13-56); Albumin, Serum 3.5 g/dL (3.2-5.0); Alkaline Phosphatase 109 U/L (45-117); Anion Gap 7 (5-15); BUN 16 mg/dL (7-18); BUN/Creat Ratio 17.4 RATIO (10-20); Calcium,Total 8.9 mg/dL (8.5-10.1); Chloride 105 mmol/L (98-107); Creatinine, Serum 0.92 mg/dL (0.55-1.02); EST Glomerular Filtration Rate 64 mL/min (>60); Est Glom Filt Rate - Afr Amer 78 mL/min (>60); Estimated Creatinine Clearance 50.54 ml/min; Globulin 4.2 g/dL (2.2-4.2); Glucose 103 mg/dL (74-106); Potassium 3.9 mmol/L (3.5-5.1); Protein, Total 7.7 g/dL (6.4-8.2); Sodium Level 139 mmol/L (136-145); Troponin-I HS 7 pg/mL (3.0-54.0)
[2022-06-10 13:39] LABS: Differential Comment SCANNED; Reactive Lymphocyte 1+
[2022-06-10] MEDS: Meclizine HCl 25 MG Tablet PO (13:51)
[2022-06-10 14:17] LABS: Mucous, Urine 0 SEEN /hpf (<or=2+); Red Blood Cells-Urine 0 SEEN /hpf (0-5)
[2022-06-10 14:47] LABS: Color, Urine Yellow (Yellow); Glucose, Dipstick Normal (Normal); Ketone-Dipstick Negative (Negative); Leukocyte Esterase-Dipstick 100 /ul (Negative); Nitrite-Dipstick Negative (Negative); Occult Blood-Urine Negative /ul (Negative); Protein-Dipstick Negative (Negative); Urine Bilirubin Dipstick Negative (Negative); Urine Clarity Sl. Cloudy (Clear); Urine Urobilinogen Normal (Normal)
[2022-06-10 14:59] LABS: Bacteria 1+ /hpf (None Seen); Squamous Epithelial Cells - UA 0-5 SEEN /hpf (5-10); White Blood Cells 10-25 SEEN /hpf (0-5)
--- NOTE | 2022-06-10 15:03 | ED.RN ---
PER DR. MILLAN, SECOND TROPONIN NOT NEEDED OF 1502.
[2022-06-10] MEDS: Cephalexin 500 MG Capsule PO (15:50)
--- NOTE | 2022-06-10 15:55 | ED.RN ---
IV DC SITE SKIN P/W/D.
== END 2022-06-10 15:55 | disposition home or self-care (01) ==
PROVIDERS: Emergency Provider Emergency Medicine; PCP Family Medicine; Visit Provider Emergency Medicine
DX: R42 Dizziness and giddiness (principal); N39.0 Urinary tract infection, site not specified; R06.02 Shortness of breath; I10 Essential (primary) hypertension; H92.03 Otalgia, bilateral; H93.19 Tinnitus, unspecified ear; J45.909 Unspecified asthma, uncomplicated
CPT/HCPCS: 70450; 80053; 81001; 84484; 85025; 87086; 87088; 93005; 99285

== ENCOUNTER → 2022-06-13 | Outpatient (CLI) | payer MEDICARE, SELFPAY ==
--- NOTE | 2022-06-13 16:48 | LES_PTH ---
PATIENT: NENA KRISHNAN LOC: [facility] U#:[id number] AGE/SX: 67/F ROOM: RE06/13/[address]: Dr. 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 Negative for malignancy. ASAD:edna 06/15/2022 COMMENT Case has been reviewed in consultation with Dr. Linares who concurs with the above diagnosis. IDC:AM MICROSCOPIC DESCRIPTION Slides are reviewed. GROSS DESCRIPTION Received in fixative is one container labeled with the patient's name and designated left upper arm. The specimen consists of an irregular piece of cash-white skin measuring 1.0 x 0.5 x 0.3 cm. The specimen is inked, serially sectioned and submitted entirely in one cassette. / SJ:rg 06/14/2022 TC:5 CPT: 27376
[2022-06-13 18:08] LABS: Free T3 2.6 pg/mL (2.18-3.98); T4 Free Direct 1.07 ng/dL (0.76-1.46); Thyroid Stim Hormone (TSH) 3.19 uIU/mL (0.358-3.74)
== END | disposition home or self-care (01) ==
PROVIDERS: PCP Family Medicine; Visit Provider Family Medicine
DX: E03.9 Hypothyroidism, unspecified (principal); L82.1 Other seborrheic keratosis
CPT/HCPCS: 36415; 84439; 84443; 84481; 88305

== ENCOUNTER 2022-11-07 15:00 | Emergency (ER) | payer MEDICARE, SELFPAY ==
[2022-11-07 15:02] VITALS: BP 130/74; PULSE 67; RESP 20; TEMP 36.5; O2SAT 97
--- NOTE | 2022-11-07 16:33 | EKG12_ITS ---
Test Reason : L FLANK PAIN Blood Pressure : / mmHG Vent. Rate : 061 BPM Atrial Rate : 061 BPM P-R Int : 178 ms QRS Dur : 078 ms QT Int : 472 ms P-R-T Axes : 035 025 056 degrees QTc Int : 475 ms Normal sinus rhythm Nonspecific ST abnormality Abnormal ECG When compared with ECG of 10-JUN-2022 13:01, No significant change was found Confirmed by HERMILO OZUNA, MUKUL ([id number]), web content editor HARSHA GUSTAFSON ([id number]) on 11/11/2022 1:39:16 PM Referred By: Confirmed By:ANISHA AKHTAR MD
[2022-11-07] MEDS: HYDROcodone Bitartrate/Apap 5/325 Tablet PO (16:57)
--- NOTE | 2022-11-07 16:57 | ED.VIS.BACK ---
HPI History of Present Illness Chief Complaint: Back Detail of Chief Complaint: Left-sided back pain radiating anteriorly Informant: patient Onset/Context/Timing Onset: Today and Hours Context: Sudden Onset Chronic pain exacerbated by: Not applicable patient seen Injury: - (Not applicable) Timing: Continuous Quality: - (Sharp concerned she has a pinched nerve apparently MRI) Location: Thoracic Current Severity: Mild Maximum Severity: Severe Worsened by: improves with Movement, Bending and - (Palpitation) Relieved by: Nothing Associated Symptoms Associated Symptoms: - (No respiratory or cardiac symptoms); Negative for Numbness, Tingling, Radiation to Right Leg, Radiation to Left Leg, Fever, Abdominal Pain, Dysuria, Unable to Ambulate, Unable to Transfer, Urinary Retention, Urinary Incontinence, Constipation or Fecal Incontinence Narrative Narrative: Patient is a 59-year-old woman presents with left-sided thoracic back pain that radiates anteriorly. She states this happened before. She did not take the hydrocodone and acetaminophen she was prescribed because she did not want to mask the pain. She denies cardiac or respiratory symptoms. She denies fever, chills night sweats. She denies trauma. Pain is worse with movement. Prior similar symptoms: Yes PFSH [facility] Medical History Anxiety Asthma Bronchitis Chronic back pain Depression GERD (gastroesophageal reflux disease) HTN (hypertension) Hypothyroidism RAJNI (obstructive sleep apnea) Pulmonary hypertension Rheumatoid arthritis Home Medications paroxetine HCl 40 mg tablet (Paxil) 40 mg PO DAILY depression 01/29/13 [History Last Taken 12/22/21] trazodone 50 mg tablet 100 mg PO QHS sleep 01/29/13 [History Last Taken 12/21/21] esomeprazole magnesium 40 mg capsule,delayed release (Nexium) 40 mg PO BID GERD 05/16/14 [History Last Taken 12/22/21] lorazepam 1 mg tablet 2 mg PO BID anxiety 10/11/16 [History Last Taken 12/22/21] cholecalciferol (vitamin D3) 1,250 mcg (50,000 unit) capsule 50,000 units PO KEITA Vit D deficiency 05/20/17 [History Last Taken 12/19/21] albuterol sulfate 90 mcg/actuation aerosol inhaler 1 - 2 puff inhalation Q6H PRN PRN Asthma ##1 05/23/17 [Rx Last Taken 06/16/18] hydrocodone-acetaminophen 5-325mg 5mg-325mg ([place]) 1 ea PO TID PRN Pain 06/22/17 [History Last Taken 12/21/21] budesonide 180 mcg/actuation breath activated powder inhaler (Pulmicort Flexhaler) 2 puff inhalation BID SOB/wheezing 12/13/17 [History Last Taken 12/21/21] levothyroxine 50 mcg tablet 50 mcg PO DAILY thyroid 12/13/17 [History Last Taken 12/21/21] losartan 50 mg tablet 50 mg PO DAILY blood pressure 07/04/20 [History Last Taken 12/22/21] montelukast 10 mg tablet 10 mg PO DAILY allergies 07/04/20 [History Last Taken 12/22/21] albuterol sulfate 90 mcg/actuation aerosol inhaler (Ventolin HFA) 1 - 2 puff inhalation Q4H PRN PRN Wheezing #8.5 grams 04/13/21 [Rx Last Taken Unknown] atorvastatin 40 mg tablet 40 mg PO QHS cholesterol 12/22/21 [History Last Taken 12/21/21] azelastine 137 mcg (0.1 %) nasal spray aerosol 2 spray intranasal BID antihistamine 12/22/21 [History Last Taken 12/21/21] pantoprazole 40 mg tablet,delayed release 40 mg PO DAILY acid reflux 12/22/21 [History Last Taken 12/22/21] cephalexin 500 mg capsule 500 mg PO Q6 #20 CAPSULES 06/10/22 [Rx Last Taken Unknown] meclizine 25 mg tablet 25 mg PO 4X/DAY PRN PRN Dizziness #20 tabs 06/10/22 [Rx Last Taken Unknown] Allergy/AdvReac Type Severity Reaction Status Date / Time lisinopril AdvReac Other Verified 11/07/22 15:02 Family History Father Cancer Mother Cancer Sister Cancer Brother Cancer Surgical History History of back surgery History of cholecystectomy History of hernia repair History of hysterectomy Social History Smoking Status: Never smoker second hand exposure: No alcohol intake: never substance use type: does not use ROS ROS ED Constitutional Constitutional ED: Denies chills, fever(s), subjective, sweats or weight loss Cardiovascular Cardiovascular: Denies chest pain, orthopnea, palpitations, paroxysmal nocturnal dyspnea or racing heartbeat Respiratory/Chest Respiratory/Chest: Denies dyspnea, dyspnea on exertion, orthopnea, paroxysmal nocturnal dyspnea or sputum Gastrointestinal Gastrointestinal: Denies constipation, diarrhea, melena, nausea or vomiting Genitourinary Genitourinary ED: Denies dysuria, hematuria or urinary frequency Musculoskeletal Musculoskeletal: Reports back pain; Denies arthralgias, myalgias or neck pain Integumentary Denies rash Neurologic Neurologic: Denies paresthesias or weakness Psychiatric Psychiatric: Reports anxiety and other Details: Patient states she took one of her anxiety meds because the pain made her anxious. EXAM Physical Exam Const Vital Signs: 11/07/22 15:02 Temperature 97.7 F L Temperature Source Temporal Pulse Rate 67 Respiratory Rate 20 H Blood Pressure 130/74 H Blood Pressure Mean 92 Pulse Ox 97 Oxygen Delivery Method Room Air Positive well nourished, well developed and obese General Appearance ED: well developed and NAD; Negative for pallor Nutritional Appearance: obese HEENT Reports moist mucous membranes HEENT Narrative: Head is atraumatic normocephalic. Ears normal. Nares patent. Posterior pharynx is normal. Eyes PERRL and EOMs intact bilaterally General Eye ED: Negative for pale conjunctiva or scleral icterus Neck no lymphadenopathy, supple and no JVD Resp normal respiratory effort and clear to auscultation bilaterally Cardio regular rate, regular rhythm, S1 normal heart sound, S2 normal heart sound and no murmurs Cardio Narrative: There is no reproducible chest pain. There is no crepitus or subcutaneous air. There is no rash to suggest herpes varicella-zoster. There is no hyperesthesia to light touch. GI normal to inspection, nondistended, normoactive bowel sounds, soft to palpation, non-tender, non-distended and no masses Back/Spine normal to inspection; Negative for no thoracic nor lumbar tenderness General Back: Negative for CVA tenderness Cervical Spine: Negative for cervical spine tenderness Thoracic Spine / Upper Back: paraspinal muscle tenderness left T7, T8 and T9 Lumbar Spine / Lower Back: Negative for ROM limited Extremity normal to inspection and no clubbing, cyanosis or edema Neuro oriented x3 and no sensory deficits noted Sensorium / Orientation: alert Psych mental status grossly normal Skin no rashes or lesions noted and no wounds General Skin Exam: Negative for jaundice or pallor MDM MDM MDM Narrative Medical decision making narrative: Aced on patient's history and physical this is muscular pain. It is not consistent with radicular pain. We will treat with oral analgesia and reassess in 30 to 60 minutes. Apparently an EKG was put in per protocol. The EKG is normal. Rate is 61. IL interval 168 ms. QRS duration 78 ms. QT duration 472 ms. [place] is normal. Treatment and Re-Evaluation Narrative: Patient was reassessed at 1747. She reports improvement. She is talking to a relative on the phone. She is moving without any grimacing. She was instructed to apply ice and take her hydrocodone that was prescribed by her doctor for her pain. Discharge Plan Triage Chief Complaint: Back ED Provider: Federico Arango Dx/Rx/DC Orders Clinical Impression: Acute left-sided thoracic back pain Instructions: ED Back Pain (Acute or Chronic) Prescriptions: No Action paroxetine HCl [Paxil] 40 MG tablet 40 mg PO DAILY trazodone 50 MG tablet 100 mg PO QHS esomeprazole magnesium [Nexium] 40 MG capsule 40 mg PO BID lorazepam 1 MG tablet 2 mg PO BID cholecalciferol (vitamin D3) 50,000 UNIT capsule 50,000 units PO KEITA Patient Comments: takes q monday Rx Instructions: takes on monday albuterol sulfate 1 INHALER inhaler 1 - 2 puff INHALATION Q6H PRN PRN (Reason: Asthma) Qty: 1 0RF hydrocodone-acetaminophen [[place]] 1 EACH tablet 1 ea PO TID PRN (Reason: Pain) levothyroxine 50 MCG tablet 50 mcg PO DAILY Pulmicort Flexhaler 1 PUFF inhaler 2 puff inhalation BID Patient Comments: inhale 2 puffs twice daily losartan 50 MG tablet 50 mg PO DAILY montelukast 10 MG tablet 10 mg PO DAILY albuterol sulfate [Ventolin HFA] 90 mcg/actuation HFA aerosol inhaler 1 - 2 puff inhalation Q4H PRN PRN (Reason: Wheezing) Qty: 8.5 0RF atorvastatin 40 mg Tablet 40 mg PO QHS pantoprazole 40 mg tablet,delayed release (DR/EC) 40 mg PO DAILY Patient Comments: TAKE 1 TABLET BY MOUTH ONCE DAILY azelastine 137 mcg (0.1 %) aerosol,spray 2 spray intranasal BID Rx Instructions: administer into each nostril cephalexin [cephalexin] 500 mg capsule 500 mg PO Q6 Qty: 20 0RF meclizine [meclizine] 25 mg tablet 25 mg PO 4X/DAY PRN PRN (Reason: Dizziness) Qty: 20 0RF Primary Care Provider: Olivia Gates Referrals: Olivia Gates, [Primary Care Provider] - 3-5 Days if not improving Activity Restrictions/Additional Instructions: 1. Apply ice 6-10 times a day 2. Take the hydrocodone and acetaminophen tablets were prescribed by your doctor for the pain for the next couple of days. Disposition Disposition: Home, Self Care
[2022-11-07 17:53] VITALS: PULSE 75; RESP 18; O2SAT 97; BMI 40.2
== END 2022-11-07 17:57 | disposition home or self-care (01) ==
PROVIDERS: Emergency Provider Emergency Medicine; PCP Family Medicine; Visit Provider Emergency Medicine
DX: M54.6 Pain in thoracic spine (principal); M06.9 Rheumatoid arthritis, unspecified; G89.29 Other chronic pain; I10 Essential (primary) hypertension; E03.9 Hypothyroidism, unspecified; J45.909 Unspecified asthma, uncomplicated; G47.33 Obstructive sleep apnea (adult) (pediatric); E66.9 Obesity, unspecified; Z79.890 Hormone replacement therapy; Z79.899 Other long term (current) drug therapy
CPT/HCPCS: 93005; 99285; J0612

== ENCOUNTER 2023-02-24 08:40 | Emergency (ER) | payer MEDICARE, MEDICAID, SELFPAY ==
[2023-02-24 08:41] VITALS: BP 156/70; PULSE 75; RESP 16; TEMP 36.8; O2SAT 96; BMI 42.4
--- NOTE | 2023-02-24 09:01 | EKG12_ITS ---
Test Reason : DIZZINESS Blood Pressure : / mmHG Vent. Rate : 072 BPM Atrial Rate : 072 BPM P-R Int : 152 ms QRS Dur : 074 ms QT Int : 422 ms P-R-T Axes : 004 034 038 degrees QTc Int : 462 ms Normal sinus rhythm Normal ECG Confirmed by KRISTEN FLOWER MD ([id number]), technical writer and editor HARSHA GUSTAFSON ([id number]) on 03/01/2023 12:23:34 PM Referred By: LAN Confirmed By:KRISTEN FLOWER MD
--- NOTE | 2023-02-24 09:06 | EX.ED.DYSGE1 ---
HPI History of Present Illness Chief Complaint: Dizziness Informant: patient Narrative Narrative: Patient is a 67-year-old female with history of chronic back pain, hypothyroid, hypertension, chronic pain, hyperlipidemia, depression and remote history of vertigo presenting with generalized malaise, dizziness and nausea. Patient states she has been feeling poorly intermittently for the past 3 weeks but is been much more severe this past week. She states she is miserable. She states she feels lightheaded and dizzy. She states whenever she moves her head she has a rushing sound in her ear ears. She notes that she was little off balance yesterday and developed nausea today. Denies any vision change but states my eyes hurt. She also has a discomfort below both of her ears and to her neck and at the base of her posterior neck. She denies any falls or head injuries. She does state that she has a pressure in her chest that she describes as a funny feeling. That is been there since yesterday. She does report that she has some chronic left-sided chest discomfort which is unchanged. She denies abdominal pain or change in bowel movements. Denies any urinary symptoms but notes that she is prone to having UTIs without any symptoms. Has had a chronic cough for 5 years in the center of her chest that is unchanged. Notes there is some intermittent ringing in her ears. Her symptoms do seem to be worse when she looks to the left. No other complaints at this time. [facility] Medical History Anxiety Asthma Bronchitis Chronic back pain Depression GERD (gastroesophageal reflux disease) HTN (hypertension) Hypothyroidism RAJNI (obstructive sleep apnea) Pulmonary hypertension Rheumatoid arthritis Home Medications paroxetine HCl 40 mg tablet (Paxil) 40 mg PO DAILY depression 01/29/13 [History Last Taken 12/22/21] trazodone 50 mg tablet 100 mg PO QHS sleep 01/29/13 [History Last Taken 12/21/21] esomeprazole magnesium 40 mg capsule,delayed release (Nexium) 40 mg PO BID GERD 05/16/14 [History Last Taken 12/22/21] lorazepam 1 mg tablet 2 mg PO BID anxiety 10/11/16 [History Last Taken 12/22/21] cholecalciferol (vitamin D3) 1,250 mcg (50,000 unit) capsule 50,000 units PO KEITA Vit D deficiency 05/20/17 [History Last Taken 12/19/21] albuterol sulfate 90 mcg/actuation aerosol inhaler 1 - 2 puff inhalation Q6H PRN PRN Asthma ##1 05/23/17 [Rx Last Taken 06/16/18] hydrocodone-acetaminophen 5-325mg 5mg-325mg ([place]) 1 ea PO TID PRN Pain 06/22/17 [History Last Taken 12/21/21] budesonide 180 mcg/actuation breath activated powder inhaler (Pulmicort Flexhaler) 2 puff inhalation BID SOB/wheezing 12/13/17 [History Last Taken 12/21/21] levothyroxine 50 mcg tablet 50 mcg PO DAILY thyroid 12/13/17 [History Last Taken 12/21/21] losartan 50 mg tablet 50 mg PO DAILY blood pressure 07/04/20 [History Last Taken 12/22/21] montelukast 10 mg tablet 10 mg PO DAILY allergies 07/04/20 [History Last Taken 12/22/21] albuterol sulfate 90 mcg/actuation aerosol inhaler (Ventolin HFA) 1 - 2 puff inhalation Q4H PRN PRN Wheezing #8.5 grams 04/13/21 [Rx Last Taken Unknown] atorvastatin 40 mg tablet 40 mg PO QHS cholesterol 12/22/21 [History Last Taken 12/21/21] azelastine 137 mcg (0.1 %) nasal spray aerosol 2 spray intranasal BID antihistamine 12/22/21 [History Last Taken 12/21/21] pantoprazole 40 mg tablet,delayed release 40 mg PO DAILY acid reflux 12/22/21 [History Last Taken 12/22/21] cephalexin 500 mg capsule 500 mg PO Q6 #20 CAPSULES 06/10/22 [Rx Last Taken Unknown] meclizine 25 mg tablet 25 mg PO 4X/DAY PRN PRN Dizziness #20 tabs 02/24/23 [Rx Last Taken Unknown] Allergy/AdvReac Type Severity Reaction Status Date / Time lisinopril AdvReac Other Verified 11/07/22 15:02 Family History Father Cancer Mother Cancer Sister Cancer Brother Cancer Surgical History History of back surgery History of cholecystectomy History of hernia repair History of hysterectomy Social History Smoking Status: Never smoker second hand exposure: No alcohol intake: never substance use type: does not use ROS ROS ED Constitutional Constitutional ED: Reports chills and other Details: Dizziness/lightheadedness ; Denies fever(s) Eyes Eyes: Denies blurry vision or change in vision ENT ENT ED: Reports ear pain and other; Denies rhinorrhea or sore throat Cardiovascular Cardiovascular: Reports chest pain; Denies palpitations Respiratory/Chest Respiratory/Chest: Reports cough; Denies dyspnea or dyspnea on exertion Gastrointestinal Gastrointestinal: Reports nausea; Denies abdominal pain, constipation, diarrhea, melena or vomiting Genitourinary Genitourinary ED: Denies dysuria or hematuria Musculoskeletal Musculoskeletal: Reports back pain and neck pain Integumentary Denies rash Neurologic Neurologic: Denies headache(s), paresthesias or weakness Hematologic/Lymphatic Hematologic/Lymphatic: Denies easy bleeding or easy bruising EXAM Physical Exam Const Vital Signs: 02/24/23 08:41 02/24/23 08:45 02/24/23 11:13 Temperature 98.3 F Temperature Source Oral Pulse Rate 75 73 Pulse Rate [Lying] Pulse Rate [Sitting (for 1 minute prior to obtaining)] Pulse Rate [Standing (for 1 minute prior to obtaining)] Respiratory Rate 16 20 H Respiratory Effort Short of Breath Blood Pressure 156/70 H Blood Pressure [Lying] Blood Pressure [Sitting (for 1 minute prior to obtaining)] Blood Pressure [Standing (for 1 minute prior to obtaining)] Blood Pressure Mean 98 Blood Pressure Mean [Lying] Blood Pressure Mean [Sitting (for 1 minute prior to obtaining)] Blood Pressure Mean [Standing (for 1 minute prior to obtaining)] Pulse Ox 96 95 Oxygen Delivery Method Room Air Room Air 02/24/23 11:57 02/24/23 13:00 02/24/23 15:00 Temperature Temperature Source Pulse Rate 61 70 Pulse Rate [Lying] 68 Pulse Rate [Sitting (for 1 minute prior to obtaining)] 73 Pulse Rate [Standing (for 1 minute prior to obtaining)] 79 Respiratory Rate 18 18 Respiratory Effort Blood Pressure 116/43 L 142/66 H Blood Pressure [Lying] 128/66 H Blood Pressure [Sitting (for 1 minute prior to obtaining)] 139/64 H Blood Pressure [Standing (for 1 minute prior to obtaining)] 175/102 H Blood Pressure Mean 67 91 Blood Pressure Mean [Lying] 86 Blood Pressure Mean [Sitting (for 1 minute prior to obtaining)] 89 Blood Pressure Mean [Standing (for 1 minute prior to obtaining)] 126 Pulse Ox 95 96 Oxygen Delivery Method Room Air Room Air 02/24/23 16:19 Temperature Temperature Source Pulse Rate 70 Pulse Rate [Lying] Pulse Rate [Sitting (for 1 minute prior to obtaining)] Pulse Rate [Standing (for 1 minute prior to obtaining)] Respiratory Rate 16 Respiratory Effort Blood Pressure 162/72 H Blood Pressure [Lying] Blood Pressure [Sitting (for 1 minute prior to obtaining)] Blood Pressure [Standing (for 1 minute prior to obtaining)] Blood Pressure Mean 102 Blood Pressure Mean [Lying] Blood Pressure Mean [Sitting (for 1 minute prior to obtaining)] Blood Pressure Mean [Standing (for 1 minute prior to obtaining)] Pulse Ox 98 Oxygen Delivery Method Positive well nourished and well developed General Appearance ED: well developed and NAD HEENT Reports TM's clear and dry mucous membranes Tympanic Membrane ED: Yes TM's clear Mouth ED: Yes dry mucous membranes Mouth: dry mucous membranes Eyes PERRL and EOMs intact bilaterally Eyes Narrative: No nystagmus on extraocular eye movement however reports her symptoms feel worse when she looks to the left. Will not tolerate maneuvers with range of motion of her head at this time. Neck no lymphadenopathy, supple and no JVD General: Negative for tenderness Chest Wall inspection of chest normal and palpation of chest normal Resp normal respiratory effort and clear to auscultation bilaterally Cardio regular rate and regular rhythm GI normal to inspection, nondistended, normoactive bowel sounds and non-tender Extremity normal to inspection General Extremety ED: Negative for edema General Extremity: Negative for edema Neuro oriented x3 and no sensory deficits noted Neuro Narrative: Normal coordination Sensorium / Orientation: alert Motor Exam: strength 5/5 throughout and general weakness Psych mental status grossly normal Skin no rashes or lesions noted and no wounds MDM MDM MDM Narrative Medical decision making narrative: Patient evaluated for nausea, dizziness/lightheadedness. She also has some mild chest discomfort. She is a bit vague in her symptoms however some of her symptoms do seem more positional. Differential includes dehydration, cardiac arrhythmia, peripheral versus central vertigo, electrolyte derangement, urinary tract infection, pneumonia and ACS. Patient is ordered meclizine, Zofran and IV fluids initially in the ER will reevaluate. Vital signs significant only for mild hypertension. Patient does have improvement of symptoms by the insert complain of more left-sided neck pain. I do question the screen muscle skeletal. Is given [place] which she takes at home. Is able to ambulate and has improvement of her dizziness. Work-up is largely unremarkable. No signs of urinary tract infection, electrolyte derangement, thyroid derangement or infection/symptomatic anemia. EKG does not show any acute ischemic changes. CTA of the head and neck does not show any acute parenchymal change or significant stenosis. Low suspicion for carotid artery occlusion or dissection that could be causing her dizziness. Given that her symptoms going on for weeks and worse over the past week I feel that without signs of a subacute stroke this is not central vertigo. Patient is given IV fluids in the ER as well as a further dose of Zofran. Discharged home with a prescription for meclizine. Is given referral for spine surgery. She notes that she has seen spine surgery in the past at other facilities that she has a lot of chronic spinal issues. Is also encouraged to follow-up with her primary care doctor. Does have an appointment this coming month. Patient verbalized agreement understand this plan. Is able to ambulate with a steady gait per nursing staff in the emergency room Lab Data Attestation: I reviewed the patient's lab results. Labs: Laboratory Results - last 24 hr 02/24/23 02/24/23 09:25 11:45 WBC 10.6 RBC 5.13 Hgb 13.1 Hct 42.4 MCV 82.7 MCH 25.5 L MCHC 30.9 L RDW Std Deviation 48.0 H RDW Coeff of Patrick 15.8 H Plt Count 344 MPV 9.6 Immature Gran % (Auto) 0.400 Neut % (Auto) 52.1 Lymph % (Auto) 38.4 [place] % (Auto) 7.0 Eos % (Auto) 1.3 Baso % (Auto) 0.8 Absolute Neuts (auto) 5.5 Absolute Lymphs (auto) 4.07 Nucleated RBC % 0 Sodium 141 Potassium 3.6 Chloride 108 H Carbon Dioxide 28.0 Anion Gap 5 BUN 16 Creatinine 0.93 Estim Creat Clear Calc 47.89 Est GFR (MDRD) Af Amer 77 Est GFR (MDRD) Non-Af 63 BUN/Creatinine Ratio 17.1 Glucose 103 Calcium 9.1 Total Bilirubin 0.20 AST 20 ALT 20 Alkaline Phosphatase 81 Troponin I High Sens 7 Total Protein 7.7 Albumin 3.4 Globulin 4.3 H Albumin/Globulin Ratio 0.8 L Lipase 25 TSH 3.50 Urine Color Yellow Urine Clarity Clear Urine pH 5.0 Ur Specific [place] 1.010 Urine Protein Negative Urine Glucose (UA) Normal Urine Ketones 5 H Urine Occult Blood Negative Urine Nitrite Negative Urine Bilirubin Negative Urine Urobilinogen Normal Ur Leukocyte Esterase Negative Urine RBC 0 SEEN Urine WBC 0 SEEN Ur Squamous Epith Cells 0-5 SEEN Urine Bacteria 0 SEEN Urine Mucus 0 SEEN Radiography Diagnostic Testing: Clinical Impression(s) from Imaging Studies Head/Neck CTA 02/24/23 10:35 IMPRESSION: Minimal plaque is seen at the origin of the right internal carotid artery. Stable appearance of the chronic involutional changes of the brain. Electronically Signed: Siddhartha Butterfield MD at 10:59 EST , ADDENDUM: 02/24/23 1515 IMPRESSION: undefined Chest X-Ray 02/24/23 11:00 IMPRESSION: Findings suggestive of scarring in the left midlung. Electronically Signed: Siddhartha Butterfield MD at 11:15 EST , Rhythm Strip Rhythm Strip: Sinus Rhythm Rate: 72 Ectopy: None EKG Initial EKG: Attestation: I personally reviewed and interpreted this EKG as follows: Interpretation: Sinus Rhythm Comments: Normal sinus rhythm rate of 72 bpm Normal axis Normal intervals Normal ST segments Prior EKG tracings: not available for review Prior: Unchanged Discharge Plan Triage Chief Complaint: Dizziness ED Provider: Lisa Villagran Dx/Rx/DC Orders Clinical Impression: Neck pain on left side, Dizziness Instructions: ED Dizziness, Uncertain Cause, ED Neck Pain Prescriptions: Continued meclizine 25 mg tablet 25 mg PO 4X/DAY PRN PRN (Reason: Dizziness) Qty: 20 0RF No Action paroxetine HCl [Paxil] 40 MG tablet 40 mg PO DAILY trazodone 50 MG tablet 100 mg PO QHS esomeprazole magnesium [Nexium] 40 MG capsule 40 mg PO BID lorazepam 1 MG tablet 2 mg PO BID cholecalciferol (vitamin D3) 50,000 UNIT capsule 50,000 units PO KEITA Patient Comments: takes q monday Rx Instructions: takes on monday albuterol sulfate 1 INHALER inhaler 1 - 2 puff INHALATION Q6H PRN PRN (Reason: Asthma) Qty: 1 0RF hydrocodone-acetaminophen [[place]] 1 EACH tablet 1 ea PO TID PRN (Reason: Pain) levothyroxine 50 MCG tablet 50 mcg PO DAILY Pulmicort Flexhaler 1 PUFF inhaler 2 puff inhalation BID Patient Comments: inhale 2 puffs twice daily losartan 50 MG tablet 50 mg PO DAILY montelukast 10 MG tablet 10 mg PO DAILY albuterol sulfate [Ventolin HFA] 90 mcg/actuation HFA aerosol inhaler 1 - 2 puff inhalation Q4H PRN PRN (Reason: Wheezing) Qty: 8.5 0RF atorvastatin 40 mg Tablet 40 mg PO QHS pantoprazole 40 mg tablet,delayed release (DR/EC) 40 mg PO DAILY Patient Comments: TAKE 1 TABLET BY MOUTH ONCE DAILY azelastine 137 mcg (0.1 %) aerosol,spray 2 spray intranasal BID Rx Instructions: administer into each nostril cephalexin [cephalexin] 500 mg capsule 500 mg PO Q6 Qty: 20 0RF Primary Care Provider: Olivia Gates Referrals: Olivia Gates DO [Primary Care Provider] - Param Kenny DO [Med Staff - Active Staff] - As Needed Activity Restrictions/Additional Instructions: Please make sure you are drinking plenty of fluids. Your work-up today was largely normal. I suspect you likely have some vertigo as a cause of your dizziness. You been prescribed meclizine to help with this. Take your [place] that you have at home as needed for pain. You have been given referral for a spine doctor to follow-up with for your neck. Please follow-up as we discussed with your primary care doctor. Disposition Disposition: Home, Self Care Discharge Date/Time: 02/24/23 16:22
[2023-02-24] MEDS: Meclizine HCl 25 MG Tablet PO (09:17)
[2023-02-24] MEDS: 0.9% Normal Saline (1000mL) 1,000 ML 1000 ML IV (09:17)
[2023-02-24] MEDS: Ondansetron 4 MG/2 ML Vial IV ×2 (09:18→12:25)
[2023-02-24 09:59] LABS: Absolute Lymphocyte Count 4.07 X10^3/uL (0.83-4.51); Absolute Neutrophil Count 5.5 X10^3/uL (2.0-7.7); Basophil# 0.08 X10^3/uL; Basophil% 0.8 % (0-1); Eosinophil# 0.14 X10^3/uL; Eosinophils% 1.3 % (0-5); Hematocrit 42.4 % (37-47); Hemoglobin 13.1 g/dL (12.0-15.0); Lymphocyte # 4.07 X10^3/ul (0.83-4.51); Lymphocyte % 38.4 % (19-41); Mean Corp Hgb Conc 30.9 g/dL (32-36); Mean Corpuscular Hgb 25.5 pg (27.0-32.0); Mean Corpuscular Volume 82.7 fL (81-99); Mean Platelet Vol. 9.6 fl (6.2-12.0); Monocyte# 0.74 X10^3/uL; NRBC Flagged by Analyzer 0 % (0-5); Neutrophil # 5.52 X10^3/uL (2.7-7.7); Neutrophil % 52.1 % (47-70); Platelet Count 344 K/mm3 (150-450); RBC Distribution Width CV 15.8 % (11.6-14.6); Red Blood Count 5.13 M/mm3 (4.2-5.4); White Blood Count 10.6 K/mm3 (4.4-11.0)
[2023-02-24 10:03] LABS: ALB/GLOB Ratio 0.8 RATIO (0.9-2.4); AST(SGOT) 20 U/L (15-37); Alanine Aminotransfer ALT/SGPT 20 U/L (13-56); Albumin, Serum 3.4 g/dL (3.2-5.0); Alkaline Phosphatase 81 U/L (45-117); Anion Gap 5 (5-15); BUN 16 mg/dL (7-18); BUN/Creat Ratio 17.1 RATIO (10-20); Calcium,Total 9.1 mg/dL (8.5-10.1); Chloride 108 mmol/L (98-107); Creatinine, Serum 0.93 mg/dL (0.55-1.02); EST Glomerular Filtration Rate 63 mL/min (>60); Est Glom Filt Rate - Afr Amer 77 mL/min (>60); Estimated Creatinine Clearance 47.89 ml/min; Globulin 4.3 g/dL (2.2-4.2); Glucose 103 mg/dL (74-106); Lipase 25 U/L (13-75); Potassium 3.6 mmol/L (3.5-5.1); Protein, Total 7.7 g/dL (6.4-8.2); Sodium Level 141 mmol/L (136-145); Troponin-I HS 7 pg/mL (3.0-54.0)
--- NOTE | 2023-02-24 10:35 | CT_ITS ---
STUDY: CTA HEAD AND NECK WITH CONTRAST REASON FOR EXAM: Female, 67 years old. Vertigo, neck pain RADIATION DOSAGE (If Supplied By Facility): CTDIvol = ( 27.43 ) mGy, DLP = ( 1635.13 ) mGycm TECHNIQUE: CT angiography was performed with a multi-detector CT scanner. Data acquisition was obtained from the skull base through the vertex following intravenous administration of IV 100mL Isovue-370. MIP images were reconstructed from the axial data set. Post-processing of the angiographic images was performed, with multiplanar reformation and 3D reconstruction. Individualized dose optimization techniques were used for this CT. COMPARISON: No relevant priors. FINDINGS: Normal bilateral petrous carotid arteries. There is calcified plaque formation of the right cavernous carotid artery, without a cross-sectional luminal stenosis. Normal left cavernous carotid artery with a normal supraclinoid bifurcation. Normal right A1 segments of the anterior cerebral artery. Normal left A1 segments of the anterior cerebral artery. Normal intact anterior communicating artery (ACOM). Normal bilateral A2 segments of the anterior cerebral arteries. Normal right M1 and M2 segments of the middle cerebral arteries, with a normal M1 bifurcation. Normal left M1 and M2 segments of the middle cerebral arteries, with a normal M1 bifurcation. Normal right posterior communicating artery (PCOM). Normal left posterior communicating artery (PCOM). Normal bilateral vertebral arteries. Normal basilar artery with a normal basilar bifurcation. The visualized bilateral superior cerebellar (SCA) arteries are normal. Normal bilateral P1, P2 and visualized P3 segments of the posterior cerebral arteries. There is no demonstrated aneurysm of the jena of [place]. There is a mild degree of cerebral atrophy. AORTIC ARCH: There is atherosclerotic calcific plaque formation of the aortic arch and great vessels arising from the aortic arch, without a hemodynamically significant stenosis. There is a normal origin of the brachiocephalic, left common carotid, and left subclavian arteries. RIGHT CAROTID ARTERIES: Normal right common carotid artery (CCA). Normal right common carotid bulb. There is mild atherosclerotic plaque formation of the origin of the right internal carotid artery with less than 50% cross sectional diameter stenosis. Normal visualized cervical portion of the right internal carotid artery. Normal origin of the right external carotid artery (ECA). LEFT CAROTID ARTERIES: Normal left common carotid artery (CCA). Normal left common carotid bulb. Normal origin of the left internal carotid (ICA) artery without a hemodynamically significant stenosis. Normal visualized cervical portion of the left internal carotid artery. Normal origin of the left external carotid artery (ECA). VERTEBRAL ARTERIES: Normal bilateral vertebral arteries. CT/CTA Head AND Neck W/ Contrast IMPRESSION: Minimal plaque is seen at the origin of the right internal carotid artery. Stable appearance of the chronic involutional changes of the brain. Electronically Signed: Siddhartha Butterfield MD at 10:59 EST ,
--- NOTE | 2023-02-24 11:00 | RAD_ITS ---
STUDY: X-RAY CHEST REASON FOR EXAM: Female, 67 years old. Five-year history of cough and chest pain. TECHNIQUE: Single AP portable view of the chest. COMPARISON: Comparison is made with prior study dated December 23, 2021. FINDINGS: EKG electrodes are seen. Persistent increased markings with confluence in the lateral aspect of the left upper lobe suggestive of a scarring. There is no demonstrated pleural abnormality. Normal size heart. Normal mediastinum and dave. Normal visualized pulmonary arteries. There is atherosclerotic calcification of the aortic arch with tortuosity. There are degenerative changes of the visualized thoracic spine. Normal visualized ribs, clavicles, and shoulders. There is no demonstrated abnormality of the visualized soft tissue structures of the upper abdomen. RAD/Chest 1 View (Portable) IMPRESSION: Findings suggestive of scarring in the left midlung. Electronically Signed: Siddhartha Butterfield MD at 11:15 EST ,
[2023-02-24 11:13] VITALS: PULSE 73; RESP 20; O2SAT 95
[2023-02-24 11:57] VITALS: BP 128/66; BP 139/64; BP 175/102; PULSE 68; PULSE 73; PULSE 79
[2023-02-24 12:03] LABS: Bacteria 0 SEEN /hpf (None Seen); Mucous, Urine 0 SEEN /hpf (<or=2+); Red Blood Cells-Urine 0 SEEN /hpf (0-5); White Blood Cells 0 SEEN /hpf (0-5)
[2023-02-24 12:07] LABS: Color, Urine Yellow (Yellow); Glucose, Dipstick Normal (Normal); Ketone-Dipstick 5 mg/dl (Negative); Leukocyte Esterase-Dipstick Negative /ul (Negative); Nitrite-Dipstick Negative (Negative); Occult Blood-Urine Negative /ul (Negative); Protein-Dipstick Negative (Negative); Urine Bilirubin Dipstick Negative (Negative); Urine Clarity Clear (Clear); Urine Urobilinogen Normal (Normal)
[2023-02-24 12:21] LABS: Squamous Epithelial Cells - UA 0-5 SEEN /hpf (5-10)
[2023-02-24] MEDS: HYDROcodone Bitartrate/Apap 5/325 Tablet PO (12:25)
[2023-02-24 13:00] VITALS: BP 116/43; PULSE 61; RESP 18; O2SAT 95
[2023-02-24 15:00] VITALS: BP 142/66; PULSE 70; RESP 18; O2SAT 96
[2023-02-24 16:19] VITALS: BP 162/72; PULSE 70; RESP 16; O2SAT 98
== END 2023-02-24 16:22 | disposition home or self-care (01) ==
PROVIDERS: Emergency Provider Emergency Medicine; PCP Family Medicine; Visit Provider Emergency Medicine
DX: M54.2 Cervicalgia (principal); M06.9 Rheumatoid arthritis, unspecified; R42 Dizziness and giddiness; I10 Essential (primary) hypertension; E78.5 Hyperlipidemia, unspecified; H93.13 Tinnitus, bilateral; G89.29 Other chronic pain; R11.0 Nausea; E03.9 Hypothyroidism, unspecified; Z79.890 Hormone replacement therapy; Z79.899 Other long term (current) drug therapy
CPT/HCPCS: 70496; 70498; 71045; 80053; 81001; 83690; 84443; 84484; 85025; 93005; 96361; 96374; 96376; 99285; J7030; Q9967; A4216; J2405

== ENCOUNTER → 2023-04-24 | Outpatient (CLI) | payer MEDICARE, MEDICAID, SELFPAY ==
[2023-04-24 15:04] LABS: Absolute Lymphocyte Count 2.25 X10^3/uL (0.83-4.51); Absolute Neutrophil Count 6.5 X10^3/uL (2.0-7.7); Basophil# 0.06 X10^3/uL; Basophil% 0.6 % (0-1); Eosinophil# 0.15 X10^3/uL; Eosinophils% 1.6 % (0-5); Hematocrit 39.1 % (37-47); Hemoglobin 11.9 g/dL (12.0-15.0); Lymphocyte # 2.25 X10^3/ul (0.83-4.51); Lymphocyte % 23.4 % (19-41); Mean Corp Hgb Conc 30.4 g/dL (32-36); Mean Corpuscular Hgb 25.3 pg (27.0-32.0); Mean Platelet Vol. 9.8 fl (6.2-12.0); Monocyte# 0.64 X10^3/uL; Monocyte% 6.7 % (0-10); NRBC Flagged by Analyzer 0 % (0-5); Neutrophil # 6.46 X10^3/uL (2.7-7.7); Neutrophil % 67.3 % (47-70); Platelet Count 342 K/mm3 (150-450); RBC Distribution Width CV 15.4 % (11.6-14.6); RBC Distribution Width SD 46.6 fl (35.1-43.9); Red Blood Count 4.71 M/mm3 (4.2-5.4); White Blood Count 9.6 K/mm3 (4.4-11.0)
[2023-04-24 15:17] LABS: Erythrocyte Sedimentation Rate 46 mm/hr (0-30)
[2023-04-24 15:29] LABS: ALB/GLOB Ratio 0.8 RATIO (0.9-2.4); AST(SGOT) 15 U/L (15-37); Alanine Aminotransfer ALT/SGPT 17 U/L (13-56); Albumin, Serum 3.3 g/dL (3.2-5.0); Alkaline Phosphatase 83 U/L (45-117); Anion Gap 7 (5-15); BUN 15 mg/dL (7-18); BUN/Creat Ratio 16.5 RATIO (10-20); CRP 4.19 mg/L (0.0-3.0); Calcium,Total 8.6 mg/dL (8.5-10.1); Chloride 106 mmol/L (98-107); Cholesterol 188 mg/dL (200); Creatinine, Serum 0.91 mg/dL (0.55-1.02); EST Glomerular Filtration Rate 65 mL/min (>60); Est Glom Filt Rate - Afr Amer 79 mL/min (>60); Globulin 3.9 g/dL (2.2-4.2); Glucose 101 mg/dL (74-106); High Density Lipoprotein 54 mg/dL; Potassium 4.1 mmol/L (3.5-5.1); Protein, Total 7.2 g/dL (6.4-8.2); Sodium Level 139 mmol/L (136-145); T4 Free Direct 0.86 ng/dL (0.76-1.46); Thyroid Stim Hormone (TSH) 5.99 uIU/mL (0.358-3.74); Triglycerides 184 mg/dL; Very Low Density Lipoprotein 37 mg/dL (5-40)
== END | disposition home or self-care (01) ==
LOC: BFHLAB 12:00
PROVIDERS: PCP Family Medicine; Visit Provider Family Medicine
DX: E03.9 Hypothyroidism, unspecified (principal); E78.5 Hyperlipidemia, unspecified; R10.9 Unspecified abdominal pain; K52.9 Noninfective gastroenteritis and colitis, unspecified
CPT/HCPCS: 36415; 80053; 80061; 84439; 84443; 84481; 85025; 85652; 86140

== ENCOUNTER → 2023-05-05 | Outpatient (CLI) | payer MEDICARE, MEDICAID, SELFPAY ==
--- NOTE | 2023-05-05 15:53 | CT_ITS ---
INDICATION: ABD PAIN EXAMINATION: CT Abdomen And Pelvis W/ Contrast Injection TECHNIQUE: Helically acquired images were obtained of the abdomen and pelvis after IV contrast. A radiation dose optimization technique was used for this scan. IV Contrast dosage and agent: Oral and amp; IV Readi-CAT and amp; 100mL Isovue-370 Oral contrast: None. COMPARISON: 09/08/2020. FINDINGS: Visualized lung bases: Groundglass opacities with mild intralobular septal thickening in the left lung base. Liver: Unremarkable Gallbladder: Surgically absent. Spleen: Unremarkable Pancreas: Unremarkable Adrenal Glands: Unremarkable Kidneys: Unremarkable Vasculature: Mild scattered aortoiliac atherosclerotic calcifications. GI Tract: Unremarkable Lymphadenopathy: None Peritoneum: No ascites. Bladder: Unremarkable Reproductive organs: Unremarkable Bones/Soft tissues: Mild scattered degenerative changes of the visualized spine. Posterior fusion L4-S1. CT/Abdomen/Pelvis WITH Contrast IMPRESSION: No acute abnormalities in the abdomen or pelvis. Groundglass opacities with mild intralobular septal thickening in the left lung base could represent atypical infection versus edema. Electronically Signed: Marek Anton MD at 0:00 EST ,
--- NOTE | 2023-05-05 16:10 | RAD_ITS ---
INDICATION: HIP PAIN EXAMINATION/TECHNIQUE: X-RAY - LEFT XR Hip Unilateral with Pelvis when performed; 2-3 Views COMPARISON: None. FINDINGS: SOFT TISSUES: Unremarkable. BONES/JOINTS: No fracture or dislocation. No significant degenerative changes. No erosive changes. 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 RAD/HIP, UNI W/ Pelvis 2-3 Views IMPRESSION: 1. No fracture or dislocation. 2. 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 Electronically Signed: Gumaro Moscoso DO at 0:23 EST ,
--- NOTE | 2023-05-05 16:10 | RAD_ITS ---
INDICATION: SHOULDER PAIN EXAMINATION/TECHNIQUE: X-RAY - LEFT XR Shoulder Min 2 Views COMPARISON: None. FINDINGS: SOFT TISSUES: Unremarkable. BONES/JOINTS: No fracture or dislocation. No significant degenerative changes. No erosive changes. RAD/Shoulder min 2 Views IMPRESSION: Unremarkable views of the left shoulder. Electronically Signed: Gumaro Moscoso DO at 0:19 EST ,
--- NOTE | 2023-05-05 16:10 | RAD_ITS ---
HISTORY: NECK PAIN. TECHNIQUE: XR Spine Cervical 4 or 5 Views. COMPARISON: 08/24/2021. FINDINGS: VERTEBRAE: Vertebral body heights maintained. Degenerative changes of the posterior elements. ALIGNMENT: No significant anterior or posterior subluxation. Preservation of the cervical lordosis. INTERVERTEBRAL DISCS: Degenerative endplate changes and mild intervertebral disc space narrowing again seen at C5-6 and C6-7. SOFT TISSUES: No significant prevertebral soft tissue swelling. RAD/Cerv Spine 4 or 5 Views IMPRESSION: No acute fracture or dislocation identified in the cervical spine. Mild degenerative change. Electronically Signed: Jenni Rojas MD at 13:47 EST ,
== END | disposition home or self-care (01) ==
PROVIDERS: PCP Family Medicine; Referring Provider Family Medicine; Visit Provider Family Medicine
DX: R10.9 Unspecified abdominal pain (principal); R19.7 Diarrhea, unspecified; M25.552 Pain in left hip; M25.512 Pain in left shoulder; M54.2 Cervicalgia
CPT/HCPCS: 72050; 73030; 73502; 74177; Q9967; A4216

== ENCOUNTER → 2023-06-14 | Outpatient (CLI) | payer MEDICARE, SELFPAY | END | disposition home or self-care (01) | PROVIDERS: PCP Family Medicine; Referring Provider Orthopaedic Surgery; Visit Provider Orthopaedic Surgery | DX: M48.061 Spinal stenosis, lumbar region without neurogenic claudication (principal); M54.16 Radiculopathy, lumbar region | CPT/HCPCS: 95886; 95909 ==

== ENCOUNTER → 2023-06-27 | Outpatient (CLI) | payer MEDICARE, MEDICAID, SELFPAY ==
--- NOTE | 2023-06-14 15:17 | NEURO ---
NCS and/or EMG Patient Report Ordering Doctor: Gumaro Palencia DATE OF SERVICE: 06/14/23 Merari presents for electrodiagnostic testing of the left lower limb. She has lower back pain with left leg weakness. Electrodiagnostic findings: Left peroneal motor nerve demonstrates normal distal latency, amplitude and conduction velocity. Normal left tibial motor response. Normal tibial and peroneal F?waves. H-reflex borderline prolonged bilaterally. Sensory responses are within normal limits. Needle EMG testing was performed in the lower limbs. All muscles tested showed no evidence of denervation with normal motor unit action potentials. Electrodiagnostic assessment: This a normal electrodiagnostic study in the left lower limb. There is no electrodiagnostic evidence for peripheral neuropathy. There is no electrodiagnostic evidence for lumbosacral radiculopathy. There is no electrodiagnostic evidence for myopathy. Multi Select Codes Neurology Neurology Interp Codes: 68882-99 Musc test done w/n test comp (interp) (1) and 17214-63 Nrv cndj tst 5-6 studies (interp)
--- NOTE | 2023-06-27 10:38 | BI_ITS ---
MAMMOGRAPHY - BILATERAL SCREENING REASON FOR EXAM: Female, 68 years old. Routine annual screening examination. PERTINENT HISTORY: Non-contributory. TECHNIQUE: Digital bilateral breast danny (3D mammographic acquisition) in the CC and MLO projections. 2-D mediolateral oblique (MLO) and craniocaudad (CC) views of both breasts were obtained. CAD: Full Field Digital Mammography with Computer Added Detection was performed. COMPARISON: Comparison is made with prior study June 24, 2021 and June 28, 2017. FINDINGS: Breast Composition: The breasts are almost entirely fatty. There are no dominant masses or suspicious calcifications. Stable small benign-appearing bilateral axillary lymph nodes. No other significant abnormalities are identified. There has been no significant change since the prior study. BI/SCRN MAMM (CAD)W/DANNY BILAT IMPRESSION: Stable bilateral screening mammogram. Yearly follow-up mammogram recommended. (A) ASSESSMENT CATEGORY: BIRADS Category 2: Benign. A letter regarding these results will be sent to the patient by the facility within 30 days. Approximately 10% of breast cancers are not detected by mammography. A normal mammogram should not delay biopsy of a clinically suspicious abnormality. [id number] Electronically Signed: Siddhartha Butterfield MD at 12:36 EDT ,
--- NOTE | 2023-06-27 10:57 | BD_ITS ---
STUDY: DUAL ENERGY X-RAY ABSORPTIOMETRY / DXA REASON FOR EXAM: Female, 68 years old. M810 TECHNIQUE: Bone Mineral Density (BMD) measurements of lumbar spine and bilateral hips were obtained. COMPARISON: Comparison is made with prior study dated June 24, 2021. FINDINGS: Lumbar Spine (L1-L4): g/cm2 (0.767) / T-score (-2.3) / Z-score (-0.3) Findings are suggestive of osteopenia with a fracture risk. Left Femur Total: g/cm2 (0.810) / T-score (-1.1) / Z-score (0.4) Left Femoral Neck: g/cm2 (0.525) / T-score (-2.9) / Z-score (-1.2) Right Femur Total: g/cm2 (0.783) / T-score (-1.3) / Z-score (0.2) Right Femoral Neck: g/cm2 (0.546) / T-score (-2.7) / Z-score (-1.0) The T-Scores on the most recent prior examination were: Lumbar Spine (L1-L4): There has been improvement of bone density since the previous examination. Left Femur Total: which represents an improvement of 6.9%. Right Femur Total: which represents an improvement of 4.2%. BD/Dexa Bone Density Study IMPRESSION: The patient is considered osteoporotic as outlined below according to World [employer] Organization (WHO) criteria with a high fracture risk. There has been improvement of bone density since the previous examination. Reference Information: The T-score is the number of standard deviations above or below the standard which is normal for young adults at their peak bone mineral density. The World Health Organization (WHO) interprets the T-scores as follows: Above -1 Normal bone density Between -1 and -2.5 Osteopenia Equal to / or below -2.5 Osteoporosis As a practical clinical guideline, osteopenia may be graded as follows: Mild -1 through -1.5 Moderate -1.6 through -2.0 Severe -2.1 through -2.4 The Z-score is the number of standard deviations above or below age-matched controls. A Z-score of less than -1.5 would be considered abnormal. References: 1. NIH Osteoporosis and Related Bone Diseases www osteo.org 2. International Society for Clinical Densitometry www iscd.org 3. National Osteoporosis Foundation www nof.org Electronically Signed: Siddhartha Butterfield MD at 12:22 EDT ,
== END | disposition home or self-care (01) ==
LOC: OPBD 10:37
PROVIDERS: PCP Family Medicine; Referring Provider Family Medicine; Visit Provider Family Medicine
DX: Z12.31 Encounter for screening mammogram for malignant neoplasm of breast (principal); M81.0 Age-related osteoporosis without current pathological fracture
CPT/HCPCS: 77063; 77067; 77080

== ENCOUNTER → 2023-07-05 | Outpatient (CLI) | payer MEDICARE, MEDICAID, SELFPAY ==
--- NOTE | 2023-07-05 16:55 | LES_PTH ---
PATIENT: NENA KRISHNAN [facility][id number] AGE/SX: 68/F ROOM: RE07/05/[address]: Dr. Olivia Gates DO : 1955 BED: DIS: 07/05/2023 SPEC #: [id number] RECD: 07/06/23 15:06 STATUS: LUCA OTIS #: [id number] JEFF: 07/05/23 16:[address]: Olivia Gates DEPT: SURGICAL PATHOLOGY RECD BY: Catherine Anna Tissues: Skin of chest Procedures: Surgery Specimen Level IV HEADER OPERATION: Excisional biopsy PRE-OP DIAGNOSIS: Basal cell carcinoma vs. abnormal nevus TISSUE SUBMITTED: Right upper chest MICROSCOPIC DIAGNOSIS Right upper chest lesion, excision biopsy: Mild dermal chronic inflammation and pigmented macrophages. Mild acanthosis. Negative for malignancy or melanocytic lesion. See comment. ASAD/ 07/10/23 COMMENT Clinical correlation and appropriate follow up are necessary. Case has been reviewed in consultation with Dr. Linares who concurs with the above diagnosis. IDC:AM MICROSCOPIC DESCRIPTION Slides are reviewed. GROSS DESCRIPTION Received is one container labeled with the patient's name and not further designated. The specimen consists of a piece of cash-brown skin measuring 0.9 x 0.5 x 0.1cm. The specimen is inked, serially sectioned and submitted entirely in one cassette. ASAD/ 07/07/23TC:3 CPT: 69286
== END | disposition home or self-care (01) ==
LOC: LABSPEC 07-06 15:18
PROVIDERS: PCP Family Medicine; Visit Provider Family Medicine
DX: L83 Acanthosis nigricans (principal)
CPT/HCPCS: 88305

== ENCOUNTER 2023-08-21 16:59 | Emergency (ER) | payer MEDICARE, MEDICAID, SELFPAY ==
[2023-08-21 16:59] VITALS: BP 136/71; PULSE 65; RESP 20; TEMP 36.7; O2SAT 97
[2023-08-21 17:01] VITALS: BP 136/71; PULSE 65; RESP 20; TEMP 36.7; O2SAT 97; BMI 43.3
--- NOTE | 2023-08-21 17:40 | EDS_ITS ---
HPI <CLYDE Krishnan - Last Filed: 08/21/23 19:19> History of Present Illness Chief Complaint: Cough Narrative Narrative: Patient is a 68-year-old female with history of hypertension, hyperlipidemia, obesity, chronic pain, anxiety presents to the emergency department for multiple months of feeling unwell. Patient states that for years she has been feeling unwell. Over the last several weeks, she has been feeling intermittently short of breath, she has intermittent sweating, and she is here for evaluation. Patient states she has been worked up for this before however they are not finding anything. Patient states yesterday for Mother's Day, she became hot, sweaty and had to sit down. Patient states that she coughs when she takes a deep breath, cannot regain her breath. Patient also states she has a lot of sinus drainage. PFSH <CLYDE Krishnan - Last Filed: 08/21/23 19:19> [facility] Medical History Anxiety Asthma Bronchitis Chronic back pain Depression GERD (gastroesophageal reflux disease) HTN (hypertension) Hypothyroidism RAJNI (obstructive sleep apnea) Pulmonary hypertension Rheumatoid arthritis Home Medications paroxetine HCl 40 mg tablet (Paxil) 40 mg PO DAILY depression 01/29/13 [History Last Taken 12/22/21] trazodone 50 mg tablet 100 mg PO QHS sleep 01/29/13 [History Last Taken 12/21/21] esomeprazole magnesium 40 mg capsule,delayed release (Nexium) 40 mg PO BID GERD 05/16/14 [History Last Taken 12/22/21] lorazepam 1 mg tablet 2 mg PO BID anxiety 10/11/16 [History Last Taken 12/22/21] cholecalciferol (vitamin D3) 1,250 mcg (50,000 unit) capsule 50,000 units PO KEITA Vit D deficiency 05/20/17 [History Last Taken 12/19/21] albuterol sulfate 90 mcg/actuation aerosol inhaler 1 - 2 puff inhalation Q6H PRN PRN Asthma ##1 05/23/17 [Rx Last Taken 06/16/18] hydrocodone-acetaminophen 5-325mg 5mg-325mg ([place]) 1 ea PO TID PRN Pain 06/22/17 [History Last Taken 12/21/21] budesonide 180 mcg/actuation breath activated powder inhaler (Pulmicort Flexhaler) 2 puff inhalation BID SOB/wheezing 12/13/17 [History Last Taken 12/21/21] levothyroxine 50 mcg tablet 50 mcg PO DAILY thyroid 12/13/17 [History Last Taken 12/21/21] losartan 50 mg tablet 50 mg PO DAILY blood pressure 07/04/20 [History Last Taken 12/22/21] montelukast 10 mg tablet 10 mg PO DAILY allergies 07/04/20 [History Last Taken 12/22/21] albuterol sulfate 90 mcg/actuation aerosol inhaler (Ventolin HFA) 1 - 2 puff inhalation Q4H PRN PRN Wheezing #8.5 grams 04/13/21 [Rx Last Taken Unknown] atorvastatin 40 mg tablet 40 mg PO QHS cholesterol 12/22/21 [History Last Taken 12/21/21] azelastine 137 mcg (0.1 %) nasal spray aerosol 2 spray intranasal BID antihistamine 12/22/21 [History Last Taken 12/21/21] pantoprazole 40 mg tablet,delayed release 40 mg PO DAILY acid reflux 12/22/21 [History Last Taken 12/22/21] cephalexin 500 mg capsule 500 mg PO Q6 #20 CAPSULES 06/10/22 [Rx Last Taken Unknown] meclizine 25 mg tablet 25 mg PO 4X/DAY PRN PRN Dizziness #20 tabs 02/24/23 [Rx Last Taken Unknown] Allergy/AdvReac Type Severity Reaction Status Date / Time No Known Allergies Allergy Verified 08/21/23 17:02 Family History Father Cancer Mother Cancer Sister Cancer Brother Cancer Surgical History History of back surgery History of cholecystectomy History of hernia repair History of hysterectomy Social History Smoking Status: Never smoker second hand exposure: No alcohol intake: never substance use type: does not use ROS <CLYDE Krishnan - Last Filed: 08/21/23 19:19> ROS ED ROS Narrative Constitutional: Negative for fever, chills, weight loss, weakness Eyes: Negative for vision loss, vision change, double vision ENT: Negative for any sore throat, ear pain, congestion Cardiovascular: Negative for any chest pain, tightness, palpitations Respiratory: Negative for any sputum production, hemoptysis, dyspnea, orthopnea. Positive for cough, dyspnea Gastrointestinal: Negative for any abdominal pain, nausea, vomiting, diarrhea, constipation, blood in stool, blood in vomit : Negative for any urinary frequency, dysuria, retention, blood in urine Muscle skeletal: Negative for any neck pain, back pain Neurological: Negative for any headache, syncope. Positive intermittent dyspnea Skin: Negative for any rashes, itching, abrasions, lacerations Psychiatric: Negative for any depression, anxiety, stress, suicidal ideation, homicidal ideation Hematologic: Negative for any excessive bruising, easy bleeding EXAM <CLYDE Krishnan - Last Filed: 08/21/23 19:19> Physical Exam Narrative Exam Narrative: Vital signs reviewed. Patient is tearful on my examination, patient appears anxious. HEET: Head normocephalic atraumatic, TMs clear bilaterally. Posterior pharynx is clear, moist mucous membranes. Nares clear bilaterally. Neck: Supple with no lymphadenopathy or tenderness. No signs of meningismus. Cardiac: Regular rate and rhythm no murmurs gallops or rubs, equal peripheral pulses bilaterally. Respiratory: Lungs clear to auscultation bilaterally. No chest tenderness. Abdomen: Soft, nontender, nondistended. No abdominal bruit or pulsatile masses. No hepatosplenomegaly Extremities: No peripheral edema, no signs of gross trauma or deformity. Active full range of motion of all extremities. Neuro: Cranial nerves II through XII intact, no focal neurological deficits. Skin: Clean dry and intact with no rash, purpura, petechiae, vesicles or pustules. Backs/flank: No CVA tenderness, no midline spinal tenderness, no deformity. Psych: Normal mood and affect. No SI, HI or acute psychosis. Const Vital Signs: 08/21/23 16:59 08/21/23 17:01 08/21/23 17:45 Temperature 98.1 F 98.1 F Temperature Source Temporal Temporal Pulse Rate 65 65 66 Respiratory Rate 20 H 20 H 21 H Respiratory Effort Respiratory Depth Respiratory Pattern Tachypnea Blood Pressure 136/71 H 136/71 H Blood Pressure Mean 92 92 Pulse Ox 97 97 Oxygen Delivery Method Room Air Room Air 08/21/23 17:34 08/21/23 18:01 08/21/23 19:01 Temperature 97.8 F 97.2 F L Temperature Source Temporal Temporal Pulse Rate 65 67 Respiratory Rate 18 15 Respiratory Effort Respiratory Depth Respiratory Pattern Blood Pressure 135/70 H 141/56 H Blood Pressure Mean 91 84 Pulse Ox 98 92 Oxygen Delivery Method Room Air Room Air Room Air 08/21/23 19:10 08/21/23 19:32 Temperature 97.5 F L Temperature Source Pulse Rate 76 Respiratory Rate 22 H Respiratory Effort Normal Non-Labored Respiratory Depth Normal Respiratory Pattern Normal Blood Pressure 146/74 H Blood Pressure Mean 98 Pulse Ox 92 Oxygen Delivery Method Room Air Positive well nourished, well developed and obese General Appearance ED: well developed Nutritional Appearance: obese <Gunnar Ocampo MD - Last Filed: 08/21/23 23:50> Physical Exam Const Vital Signs: 08/21/23 16:59 08/21/23 17:01 08/21/23 17:45 Temperature 98.1 F 98.1 F Temperature Source Temporal Temporal Pulse Rate 65 65 66 Respiratory Rate 20 H 20 H 21 H Respiratory Effort Respiratory Depth Respiratory Pattern Tachypnea Blood Pressure 136/71 H 136/71 H Blood Pressure Mean 92 92 Pulse Ox 97 97 Oxygen Delivery Method Room Air Room Air 08/21/23 17:34 08/21/23 18:01 08/21/23 19:01 Temperature 97.8 F 97.2 F L Temperature Source Temporal Temporal Pulse Rate 65 67 Respiratory Rate 18 15 Respiratory Effort Respiratory Depth Respiratory Pattern Blood Pressure 135/70 H 141/56 H Blood Pressure Mean 91 84 Pulse Ox 98 92 Oxygen Delivery Method Room Air Room Air Room Air 08/21/23 19:10 08/21/23 19:32 Temperature 97.5 F L Temperature Source Pulse Rate 76 Respiratory Rate 22 H Respiratory Effort Normal Non-Labored Respiratory Depth Normal Respiratory Pattern Normal Blood Pressure 146/74 H Blood Pressure Mean 98 Pulse Ox 92 Oxygen Delivery Method Room Air MDM <CLYDE Krishnan - Last Filed: 08/21/23 19:19> MDM Lab Data Labs: Laboratory Results - last 24 hr 08/21/23 17:50 WBC 10.1 RBC 4.45 Hgb 11.4 L Hct 36.5 L MCV 82.0 MCH 25.6 L MCHC 31.2 L RDW Std Deviation 47.8 H RDW Coeff of Patrick 16.0 H Plt Count 333 MPV 9.3 Immature Gran % (Auto) 0.400 Neut % (Auto) 49.7 Lymph % (Auto) 40.5 Bradford % (Auto) 6.8 Eos % (Auto) 2.0 Baso % (Auto) 0.6 Absolute Neuts (auto) 5.0 Absolute Lymphs (auto) 4.10 Nucleated RBC % 0 Sodium 140 Potassium 3.7 Chloride 109 H Carbon Dioxide 26.0 Anion Gap 5 BUN 17 Creatinine 0.87 Est GFR (MDRD) Af Amer 83 Est GFR (MDRD) Non-Af 69 BUN/Creatinine Ratio 19.6 Glucose 114 H Calcium 8.6 Troponin I High Sens 4 B-Natriuretic Peptide 43.8 Radiography Diagnostic Testing: Clinical Impression(s) from Imaging Studies Chest X-Ray 08/21/23 18:20 IMPRESSION: No acute radiographic abnormalities. Electronically Signed: Marek Anton MD at 19:00 EDT , EKG Normal sinus rhythm: Attestation: I personally reviewed and interpreted this EKG as follows: Comments: Normal sinus rhythm, rate 64 bpm, IA 168 ms, no acute ST elevation, no acute infarct noted. Treatment and Re-Evaluation :: Differential diagnosis includes however is not limited to: Community-acquired pneumonia, COPD, reactive airway disease, asthma, anxiety, ACS, DC Patient is in no obvious respiratory distress, patient's vital signs are stable. Patient presents to the emergency department with what seems to be going on for multiple weeks. Patient presents emerged department with chest tightness, chest burning, cough, congestion has been ongoing for several weeks. Patient states that she has not felt well for greater than 10 years. Patient will see the cardiac workup including 2 view chest x-ray, troponin, laboratory values including a BNP. EKG will be obtained. Patient be given breathing treatments, will be reevaluated. All radiologic examinations were read, reviewed by the emergency department attending. From these reads, a plan of care will be put in place. Patient's labs show a normal CBC, slight anemia and hemoglobin 11.4, this is baseline. Patient's chemistries were unremarkable. Patient's BNP was negative, troponin was negative. Patient's chest x-ray showed no acute radiographic abnormalities. No evidence of any ACS or DC. Patient did have slight relief with breathing treatments. At this time, patient be diagnosed with acute on chronic dyspnea. I do believe that there is an anxiety component. Patient will follow-up outpatient. She is happy with the plan of care, all questions answered stable for discharge <Gunnar Ocampo MD - Last Filed: 08/21/23 23:50> [facility] MDM Narrative Medical decision making narrative: Dr. Ocampo: I have personally performed a face to face assessment of the patient and have reviewed the RASHAD Note. I performed a substantive portion of the visit including all aspects of the following. My knox findings include: History is multiple somatic complaints times months, malaise and fatigue Exam is afebrile. Vital signs noted. Regular rate and rhythm. Lungs clear to auscultation bilaterally. Abdomen soft and nontender with normoactive bowel sounds. Neurological examination nonfocal and nonlateralizing. Medical Decision Making: I reviewed the patient's laboratory work, normal white count of 10.1, hemoglobin stable 11.4, platelet count normal at 333. Electrolyte panel is significant for chloride of 109 and glucose 114 with a normal anion gap of 5. High-sensitivity troponin is 4. BNP 43.8. Chest x-ray interpreted by myself independently shows no pneumothorax, no pneumonia. I reviewed the radiology report which confirms my independent interpretation. At this point in time, I feel she can be discharged to follow-up with her primary care provider. Return instructions were reviewed. Disposition is discharged home in stable condition. Other additions or changes: [None] History & Record Review Discussion w/independent historian: Patient Additional record(s) reviewed:: Prior labs Lab Data Attestation: I reviewed the patient's lab results. Labs: Laboratory Results - last 24 hr 08/21/23 17:50 WBC 10.1 RBC 4.45 Hgb 11.4 L Hct 36.5 L MCV 82.0 MCH 25.6 L MCHC 31.2 L RDW Std Deviation 47.8 H RDW Coeff of Patrick 16.0 H Plt Count 333 MPV 9.3 Immature Gran % (Auto) 0.400 Neut % (Auto) 49.7 Lymph % (Auto) 40.5 Bradford % (Auto) 6.8 Eos % (Auto) 2.0 Baso % (Auto) 0.6 Absolute Neuts (auto) 5.0 Absolute Lymphs (auto) 4.10 Nucleated RBC % 0 Sodium 140 Potassium 3.7 Chloride 109 H Carbon Dioxide 26.0 Anion Gap 5 BUN 17 Creatinine 0.87 Est GFR (MDRD) Af Amer 83 Est GFR (MDRD) Non-Af 69 BUN/Creatinine Ratio 19.6 Glucose 114 H Calcium 8.6 Troponin I High Sens 4 B-Natriuretic Peptide 43.8 Radiography Chest X-Ray - ED: Read by ED Physician Diagnostic Testing: Clinical Impression(s) from Imaging Studies Chest X-Ray 08/21/23 18:20 IMPRESSION: No acute radiographic abnormalities. Electronically Signed: Marek Anton MD at 19:00 EDT Reading Location ID and State: [address] [place] [address] Tel , Service support , Discharge Plan Triage Chief Complaint: Cough ED Midlevel Provider: Yvon Jacobo ED Provider: Gunnar Ocampo Dx/Rx/DC Orders Clinical Impression: Chronic dyspnea, Dizziness, Cough Instructions: ED Dizziness, Uncertain Cause, ED Dyspnea, ED Symptoms Uncertain Cause Prescriptions: No Action paroxetine HCl [Paxil] 40 MG tablet 40 mg PO DAILY trazodone 50 MG tablet 100 mg PO QHS esomeprazole magnesium [Nexium] 40 MG capsule 40 mg PO BID lorazepam 1 MG tablet 2 mg PO BID cholecalciferol (vitamin D3) 50,000 UNIT capsule 50,000 units PO KEITA Patient Comments: takes q monday Rx Instructions: takes on monday albuterol sulfate 1 INHALER inhaler 1 - 2 puff INHALATION Q6H PRN PRN (Reason: Asthma) Qty: 1 0RF hydrocodone-acetaminophen [[place]] 1 EACH tablet 1 ea PO TID PRN (Reason: Pain) levothyroxine 50 MCG tablet 50 mcg PO DAILY Pulmicort Flexhaler 1 PUFF inhaler 2 puff inhalation BID Patient Comments: inhale 2 puffs twice daily losartan 50 MG tablet 50 mg PO DAILY montelukast 10 MG tablet 10 mg PO DAILY albuterol sulfate [Ventolin HFA] 90 mcg/actuation HFA aerosol inhaler 1 - 2 puff inhalation Q4H PRN PRN (Reason: Wheezing) Qty: 8.5 0RF atorvastatin 40 mg Tablet 40 mg PO QHS pantoprazole 40 mg tablet,delayed release (DR/EC) 40 mg PO DAILY Patient Comments: TAKE 1 TABLET BY MOUTH ONCE DAILY azelastine 137 mcg (0.1 %) aerosol,spray 2 spray intranasal BID Rx Instructions: administer into each nostril cephalexin [cephalexin] 500 mg capsule 500 mg PO Q6 Qty: 20 0RF meclizine 25 mg tablet 25 mg PO 4X/DAY PRN PRN (Reason: Dizziness) Qty: 20 0RF Primary Care Provider: Olivia Gates Referrals: Olivia Gates DO [Primary Care Provider] - Activity Restrictions/Additional Instructions: Please follow-up outpatient. Disposition Disposition: Home, Self Care Discharge Date/Time: 08/21/23 19:33
[2023-08-21] MEDS: Ipratropium/Albuterol Sulfate 3 ML AMPUL.NEB INHALATION (17:44)
[2023-08-21] MEDS: Albuterol 2.5 MG/3 ML VIAL.NEB. INHALATION (17:44)
[2023-08-21 17:45] VITALS: PULSE 66; RESP 21
[2023-08-21 18:01] VITALS: BP 135/70; PULSE 65; RESP 18; TEMP 36.6; O2SAT 98
[2023-08-21 18:01] LABS: Basophil# 0.06 X10^3/uL; Basophil% 0.6 % (0-1); Hematocrit 36.5 % (37-47); Hemoglobin 11.4 g/dL (12.0-15.0); Lymphocyte % 40.5 % (19-41); Mean Corp Hgb Conc 31.2 g/dL (32-36); Mean Corpuscular Hgb 25.6 pg (27.0-32.0); Mean Platelet Vol. 9.3 fl (6.2-12.0); Monocyte# 0.69 X10^3/uL; Monocyte% 6.8 % (0-10); NRBC Flagged by Analyzer 0 % (0-5); Neutrophil # 5.04 X10^3/uL (2.7-7.7); Neutrophil % 49.7 % (47-70); Platelet Count 333 K/mm3 (150-450); RBC Distribution Width SD 47.8 fl (35.1-43.9); Red Blood Count 4.45 M/mm3 (4.2-5.4); White Blood Count 10.1 K/mm3 (4.4-11.0)
[2023-08-21 18:20] LABS: Anion Gap 5 (5-15); BUN 17 mg/dL (7-18); BUN/Creat Ratio 19.6 RATIO (10-20); Calcium,Total 8.6 mg/dL (8.5-10.1); Chloride 109 mmol/L (98-107); Creatinine, Serum 0.87 mg/dL (0.55-1.02); EST Glomerular Filtration Rate 69 mL/min (>60); Est Glom Filt Rate - Afr Amer 83 mL/min (>60); Glucose 114 mg/dL (74-106); Potassium 3.7 mmol/L (3.5-5.1); Sodium Level 140 mmol/L (136-145); Troponin-I HS 4 pg/mL (3.0-54.0)
--- NOTE | 2023-08-21 18:20 | RAD_ITS ---
INDICATION: cough EXAMINATION/TECHNIQUE: X-RAY - XR Chest 2 Views COMPARISON: None. FINDINGS: Left mid lung scarring. Lungs are otherwise clear. Tortuous and calcified thoracic aorta. The heart is not enlarged. No pleural effusion or pneumothorax. Degenerative changes of the thoracic spine. RAD/Chest PA and Lateral IMPRESSION: No acute radiographic abnormalities. Electronically Signed: Marek Anton MD at 19:00 EDT ,
[2023-08-21 18:25] LABS: BNP,B-Type NATRIURETIC PEPTIDE 43.8 pg/mL (0-100)
[2023-08-21 19:01] VITALS: BP 141/56; PULSE 67; RESP 15; TEMP 36.2; O2SAT 92
[2023-08-21 19:32] VITALS: BP 146/74; PULSE 76; RESP 22; TEMP 36.4; O2SAT 92
== END 2023-08-21 19:33 | disposition home or self-care (01) ==
PROVIDERS: Nurse Practitioner; Emergency Provider Emergency Medicine; PCP Family Medicine; Visit Provider Emergency Medicine
DX: R06.00 Dyspnea, unspecified (principal); R42 Dizziness and giddiness; E78.5 Hyperlipidemia, unspecified; F41.9 Anxiety disorder, unspecified; I10 Essential (primary) hypertension; R05.9 Cough, unspecified; E66.9 Obesity, unspecified; J45.909 Unspecified asthma, uncomplicated; K21.9 Gastro-esophageal reflux disease without esophagitis
CPT/HCPCS: 71046; 80048; 83880; 84484; 85025; 93005; 94640; 99284; A4216

== ENCOUNTER → 2023-09-13 | Outpatient (CLI) | payer MEDICARE, MEDICAID, SELFPAY ==
[2023-09-13 12:43] LABS: Absolute Lymphocyte Count 4.49 X10^3/uL (0.83-4.51); Absolute Neutrophil Count 6.3 X10^3/uL (2.0-7.7); Basophil# 0.09 X10^3/uL; Basophil% 0.7 % (0-1); Eosinophil# 0.36 X10^3/uL; Hematocrit 39.9 % (37-47); Hemoglobin 11.9 g/dL (12.0-15.0); Lymphocyte # 4.49 X10^3/ul (0.83-4.51); Mean Corp Hgb Conc 29.8 g/dL (32-36); Mean Corpuscular Hgb 25.3 pg (27.0-32.0); Mean Corpuscular Volume 84.9 fL (81-99); Mean Platelet Vol. 9.8 fl (6.2-12.0); Monocyte# 0.84 X10^3/uL; Monocyte% 6.9 % (0-10); NRBC Flagged by Analyzer 0 % (0-5); Neutrophil # 6.26 X10^3/uL (2.7-7.7); Neutrophil % 51.7 % (47-70); Platelet Count 417 K/mm3 (150-450); RBC Distribution Width SD 50.5 fl (35.1-43.9); White Blood Count 12.1 K/mm3 (4.4-11.0)
[2023-09-13 13:25] LABS: Vitamin B12 299 pg/mL (211-911)
[2023-09-13 13:51] LABS: T4 Free Direct 0.95 ng/dL (0.76-1.46); Thyroid Stim Hormone (TSH) 5.17 uIU/mL (0.358-3.74)
[2023-09-13 14:19] LABS: Hemoglobin A1c 5.8 % (3.8-5.6)
== END | disposition home or self-care (01) ==
LOC: BFHLAB 10:45
PROVIDERS: PCP Family Medicine; Visit Provider Family Medicine
DX: R73.01 Impaired fasting glucose (principal); E03.9 Hypothyroidism, unspecified; R53.83 Other fatigue; Z51.81 Encounter for therapeutic drug level monitoring
CPT/HCPCS: 36415; 82607; 83036; 84439; 84443; 84481; 85025

== ENCOUNTER 2024-01-05 16:14 | Emergency (ER) | payer MEDICARE, MEDICAID, SELFPAY ==
[2024-01-05 16:16] VITALS: BP 136/70; PULSE 70; RESP 18; TEMP 35.5; O2SAT 95
[2024-01-05 16:17] VITALS: BMI 44.6
--- NOTE | 2024-01-05 17:24 | ED.RN ---
PT C/O ACHING IN HER BODY FROM THE WAIST UP. STATES IT IS WORSE WITH MOVEMENT. C/O SOME SOB WITH EXERTION, BUT THIS IS NOT DIFFERENT FROM NORMAL. DENIES OTHER COMPLAINTS
--- NOTE | 2024-01-05 18:07 | EDS_ITS ---
HPI History of Present Illness Chief Complaint: Other, Pain/Inj PFSH PFSH Medical History Anxiety Asthma Bronchitis Chronic back pain Depression GERD (gastroesophageal reflux disease) HTN (hypertension) Hypothyroidism RAJNI (obstructive sleep apnea) Pulmonary hypertension Rheumatoid arthritis Home Medications ?Medication ?Instructions ?Recorded ?Last Taken ?Type paroxetine HCl 40 mg tablet (Paxil) 40 mg PO DAILY depression 01/29/13 12/22/21 History trazodone 50 mg tablet 100 mg PO QHS sleep 01/29/13 12/21/21 History esomeprazole magnesium 40 mg 40 mg PO BID GERD 05/16/14 12/22/21 History capsule,delayed release (Nexium) lorazepam 1 mg tablet 2 mg PO BID anxiety 10/11/16 12/22/21 History cholecalciferol (vitamin D3) 1,250 50,000 units PO KEITA Vit D deficiency 05/20/17 12/19/21 History mcg (50,000 unit) capsule albuterol sulfate 90 mcg/actuation 1 - 2 puff inhalation Q6H PRN PRN 05/23/17 06/16/18 Rx aerosol inhaler Asthma ##1 hydrocodone-acetaminophen 5-325mg 1 ea PO TID PRN Pain 06/22/17 12/21/21 History 5mg-325mg ([place]) budesonide 180 mcg/actuation 2 puff inhalation BID SOB/wheezing 12/13/17 12/21/21 History breath activated powder inhaler (Pulmicort Flexhaler) levothyroxine 50 mcg tablet 50 mcg PO DAILY thyroid 12/13/17 12/21/21 History losartan 50 mg tablet 50 mg PO DAILY blood pressure 07/04/20 12/22/21 History montelukast 10 mg tablet 10 mg PO DAILY allergies 07/04/20 12/22/21 History albuterol sulfate 90 mcg/actuation 1 - 2 puff inhalation Q4H PRN PRN 04/13/21 Unknown Rx aerosol inhaler (Ventolin HFA) Wheezing #8.5 grams atorvastatin 40 mg tablet 40 mg PO QHS cholesterol 12/22/21 12/21/21 History azelastine 137 mcg (0.1 %) nasal 2 spray intranasal BID 12/22/21 12/21/21 History spray antihistamine Allergy/AdvReac Type Severity Reaction Status Date / Time No Known Allergies Allergy Verified 01/05/24 16:16 Family History Father Cancer Mother Cancer Sister Cancer Brother Cancer Surgical History History of back surgery History of cholecystectomy History of hernia repair History of hysterectomy Social History Smoking Status: Never smoker second hand exposure: No alcohol intake: never substance use type: does not use EXAM Physical Exam Const Vital Signs: 01/05/24 16:16 01/05/24 17:22 01/05/24 18:21 Temperature 96 F L Temperature Source Temporal Pulse Rate 70 Respiratory Rate 18 Respiratory Effort Normal Respiratory Pattern Normal Blood Pressure 136/70 H Blood Pressure Mean 92 Pulse Ox 95 97 Oxygen Delivery Method Room Air Room Air 01/05/24 19:18 01/05/24 20:24 Temperature Temperature Source Pulse Rate 64 69 Respiratory Rate 17 18 Respiratory Effort Respiratory Pattern Blood Pressure 129/62 H 158/90 H Blood Pressure Mean 84 112 Pulse Ox 96 95 Oxygen Delivery Method Room Air Room Air MDM MDM MDM Narrative Medical decision making narrative: HISTORY OF PRESENT ILLNESS: 68-year-old female presents with multiple complaints. She states she has had 1 month of pain that is distributed along bilateral rib margins and radiates up into her neck. She notes the pain is constant with no alleviating exacerbating features. Denies vomiting. Notes he is history of GERD and thinks it could be her esophagus. Denies drinking alcohol. Denies syncope. The patient denies recent surgery in the last 4 weeks or immobilization in the last 3 days, denies previous diagnosis of DVT or PE, hemoptysis, unilateral leg swelling or malignancy with treatment the last 6 months or palliative. No estrogen use noted. Patient denies sudden onset of pain, no tearing sensation, no migratory symptoms, no new numbness, weakness or loss of sensation. Patient denies family history or personal history of Connective tissue disorders (Marfan's Syndrome, Jennifer Danlos etc). Denies any chest pain or shortness of breath. REVIEW OF SYSTEMS: Pertinent positives: Rib pain, chest pain Pertinent negatives: Vomiting, dark stools, syncope, focal weakness PHYSICAL EXAM: Nursing triage notes reviewed, Vital signs reviewed Constitutional: please see mdm HENT: MMM Eyes: Pupils equal round and reactive to light, Extraocular muscles intact Neck: No stridor, no JVD, full neck ROM, no step-offs deformities noted of cervical spine, negative Spurling's test Lungs: Clear to auscultation, No wheezing or rales. No increased work of breathing, no conversational dyspnea, no accessory muscle use, no nasal flaring. No respiratory distress noted Heart: Regular rate and rhythm, No murmurs, No rubs and No gallops, 2+ distal pulses (radial, femoral, posterior tibial) in all extremities Abdomen: Soft, there is no tenderness, rigidity, rebound or guarding, no obvious peritoneal signs, no palpable pulsatile abdominal masses, no auscultated abdominal bruit : No CVAT Extremities: No edema Neuro: No focal neurological deficits, cranial nerves II through XII intact, 5/5 strength in all extremities. Intact sensation to light touch in all extremities, 2+ reflexes bilateral patella tendons. Normal gait. No ataxia. Intact 5/5 strength with ok sign (median), intact finger abduction (ulnar) intact wrist extension (radial n). Intact sensation in the radial, ulnar, and median nerve distributions. Skin: No rash or lesions noted MEDICAL DECISION MAKING: Chief Complaint: Chest pain External records reviewed: Reviewed prior imaging studies: Reviewed prior x-ray of the cervical spine from April 2023 which showed no acute abnormalities Factors affecting care: Chronic neck pain, lumbar spinal stenosis Social determinants of health: none History obtained from others: EMS Consults: none [facility] Narrative: The patient was hemodynamically stable, afebrile and nontoxic-appearing. Exam without focal cardiopulmonary normalities. No stigmata of VTE or aortic dissection noted I considered the following differential diagnosis: ACS, arrhythmia, anemia, esophageal perforation, PE, aortic dissection, pancreatitis, hepatobiliary pathology, hiatal hernia I obtained a broad lab and imaging workup to further elucidate etiology the patient complaints. ALL IMAGES (IF OBTAINED) HAVE BEEN PERSONALLY REVIEWED AND INTERPRETED BY MYSELF. Age-adjusted D-dimer this makes VTE less likely EKG with normal sinus rhythm, normal axis, normal intervals, no STEMI CBC with leukocytosis, mild anemia, no thrombocytopenia CMP without evidence of acute kidney injury, significant electrolyte abnormality, anion gap, no evidence hepatobiliary pathology. High-sensitivity troponin is negative, no evidence of myocardial ischemia x 2, rules out ACS per our high-sensitivity protocol) Lipase is wnl indicating no pancreatic inflammation. I have personally reviewed the patient's chest x-ray. Chest x-ray is unremarkable for pulmonary edema, pneumothorax, pneumonia or focal cardiopulmonary abnormality. The synthesis of the patient's history, physical exam, labs images suggest no life-limiting etiology. The patient is appropriate discharge home with close follow-up with her primary care physician and possibly pain management. I do not suspect her presentation is life-threatening given the chronicity of her symptoms being present for greater than 1 month and lack of physical exam, lab or imaging findings to suggest a life-threatening etiology. Consider hospitalization however thought this was not indicated at this time given stable vitals, unremarkable labs and images. The patient and/or family, caregivers express understanding. The patient and/or family, caregivers agrees with the plan. Shared decision making: I will have a discussion with the patient and or visitors regarding risk/benefits of further testing or admission. They will be made aware of of the risk/benefits inherent in this decision they will be given the opportunity to voice understanding. Total critical care time today provided was at least 0 minutes. This excludes separately billable procedures. Critical care time (if documented) is secondary to the patient having high probability of clinically significant/life threatening deterioration in the patient's condition which required my urgent intervention. Impression: 1. Chest pain 2. History of hypertension 3. History of hyperlipidemia Dispo: Discharge home This note was generated with [employer] dictation software. It may contain incorrect words, spelling, and punctuation that were not noted in review of the chart prior to signing. Lab Data Labs: Laboratory Results - last 24 hr 01/05/24 01/05/24 18:50 21:05 WBC 11.2 H RBC 4.64 Hgb 11.5 L Hct 37.9 MCV 81.7 MCH 24.8 L MCHC 30.3 L RDW Std Deviation 46.5 H RDW Coeff of Patrick 15.8 H Plt Count 333 MPV 9.3 Immature Gran % (Auto) 0.400 Neut % (Auto) 56.5 Lymph % (Auto) 33.9 [place] % (Auto) 6.9 Eos % (Auto) 1.7 Baso % (Auto) 0.6 Absolute Neuts (auto) 6.3 Absolute Lymphs (auto) 3.79 Nucleated RBC % 0 D-Dimer Quant (PE/DVT) 0.57 H* Sodium 140 Potassium 3.8 Chloride 107 Carbon Dioxide 28.0 Anion Gap 5 BUN 16 Creatinine 0.82 Estim Creat Clear Calc 75.95 Est GFR (MDRD) Af Amer 88 Est GFR (MDRD) Non-Af 73 BUN/Creatinine Ratio 19.4 Glucose 101 Calcium 8.6 Total Bilirubin 0.20 Direct Bilirubin 0.08 AST 15 ALT 14 Alkaline Phosphatase 79 Troponin I High Sens 7 7 Total Protein 7.2 Albumin 3.2 Globulin 4.0 Lipase 38 Radiography Diagnostic Testing: Clinical Impression(s) from Imaging Studies Chest X-Ray 01/05/24 18:50 IMPRESSION: Elevated right hemidiaphragm and minor basilar atelectasis. Electronically Signed: Gumaro Philip MD at 19:01 EDT , Discharge Plan Triage Chief Complaint: Other, Pain/Inj ED Provider: Augusto Kingston Dx/Rx/DC Orders Prescriptions: No Action paroxetine HCl [Paxil] 40 MG tablet 40 mg PO DAILY trazodone 50 MG tablet 100 mg PO QHS esomeprazole magnesium [Nexium] 40 MG capsule 40 mg PO BID lorazepam 1 MG tablet 2 mg PO BID cholecalciferol (vitamin D3) 50,000 UNIT capsule 50,000 units PO KEITA Patient Comments: takes q monday Rx Instructions: takes on monday albuterol sulfate 1 INHALER inhaler 1 - 2 puff INHALATION Q6H PRN PRN (Reason: Asthma) Qty: 1 0RF hydrocodone-acetaminophen [[place]] 1 EACH tablet 1 ea PO TID PRN (Reason: Pain) levothyroxine 50 MCG tablet 50 mcg PO DAILY Pulmicort Flexhaler 1 PUFF inhaler 2 puff inhalation BID Patient Comments: inhale 2 puffs twice daily losartan 50 MG tablet 50 mg PO DAILY montelukast 10 MG tablet 10 mg PO DAILY albuterol sulfate [Ventolin HFA] 90 mcg/actuation HFA aerosol inhaler 1 - 2 puff inhalation Q4H PRN PRN (Reason: Wheezing) Qty: 8.5 0RF atorvastatin 40 mg Tablet 40 mg PO QHS azelastine 137 mcg (0.1 %) aerosol,spray 2 spray intranasal BID Rx Instructions: administer into each nostril Primary Care Provider: Olivia Gates Referrals: Olivia Gates DO [Primary Care Provider] - Print Language: [place] African
[2024-01-05 18:21] VITALS: O2SAT 97
--- NOTE | 2024-01-05 18:21 | EKG12_ITS ---
Test Reason : PAIN Blood Pressure : / mmHG Vent. Rate : 063 BPM Atrial Rate : 063 BPM P-R Int : 184 ms QRS Dur : 076 ms QT Int : 470 ms P-R-T Axes : 013 041 045 degrees QTc Int : 480 ms Normal sinus rhythm Normal ECG Confirmed by CHING OZUNA, KRISTEN ([id number]), map editor DEANN PIERRE ([id number]) on 01/09/2024 2:10:41 PM Referred By: Confirmed By:KRISTEN FLOWER MD
--- NOTE | 2024-01-05 18:50 | RAD_ITS ---
STUDY: X-RAY CHEST REASON FOR EXAM: Female, 68 years old. chest pain TECHNIQUE: AP portable COMPARISON: August 21, 2023 FINDINGS: Elevated right hemidiaphragm and minor basilar atelectasis.. There is no demonstrated pleural abnormality. Normal size heart. Normal mediastinum and dave. Normal visualized pulmonary arteries. Mildly calcified aortic arch and descending thoracic aorta. Dorsal spine and shoulders demonstrate degenerative change. Normal visualized ribs, and clavicles. There is no demonstrated abnormality of the visualized soft tissue structures of the upper abdomen. RAD/Chest 1 View (Portable) IMPRESSION: Elevated right hemidiaphragm and minor basilar atelectasis. Electronically Signed: Gumaro Philip MD at 19:01 EDT ,
[2024-01-05 19:06] LABS: Absolute Lymphocyte Count 3.79 X10^3/uL (0.83-4.51); Absolute Neutrophil Count 6.3 X10^3/uL (2.0-7.7); Basophil# 0.07 X10^3/uL; Basophil% 0.6 % (0-1); Eosinophil# 0.19 X10^3/uL; Eosinophils% 1.7 % (0-5); Hematocrit 37.9 % (37-47); Hemoglobin 11.5 g/dL (12.0-15.0); Lymphocyte # 3.79 X10^3/ul (0.83-4.51); Lymphocyte % 33.9 % (19-41); Mean Corp Hgb Conc 30.3 g/dL (32-36); Mean Corpuscular Hgb 24.8 pg (27.0-32.0); Mean Corpuscular Volume 81.7 fL (81-99); Mean Platelet Vol. 9.3 fl (6.2-12.0); Monocyte# 0.77 X10^3/uL; Monocyte% 6.9 % (0-10); NRBC Flagged by Analyzer 0 % (0-5); Neutrophil # 6.31 X10^3/uL (2.7-7.7); Neutrophil % 56.5 % (47-70); Platelet Count 333 K/mm3 (150-450); RBC Distribution Width CV 15.8 % (11.6-14.6); RBC Distribution Width SD 46.5 fl (35.1-43.9); Red Blood Count 4.64 M/mm3 (4.2-5.4); White Blood Count 11.2 K/mm3 (4.4-11.0)
[2024-01-05] MEDS: Famotidine 200 MG/20 ML MDV 20 MG in 0.9% Normal Saline (Pres. free 8 ML 300 MG IV (19:16)
[2024-01-05 19:18] VITALS: BP 129/62; PULSE 64; RESP 17; O2SAT 96
[2024-01-05 19:29] LABS: AST(SGOT) 15 U/L (15-37); Alanine Aminotransfer ALT/SGPT 14 U/L (13-56); Albumin, Serum 3.2 g/dL (3.2-5.0); Alkaline Phosphatase 79 U/L (45-117); Anion Gap 5 (5-15); BUN 16 mg/dL (7-18); BUN/Creat Ratio 19.4 RATIO (10-20); Bilirubin, Direct 0.08 mg/dL (0.00-0.30); Calcium,Total 8.6 mg/dL (8.5-10.1); Chloride 107 mmol/L (98-107); Creatinine, Serum 0.82 mg/dL (0.55-1.02); D-Dimer Quantitative (DVT/PE) 0.57 FEU/ug/m (0.27-0.49); EST Glomerular Filtration Rate 73 mL/min (>60); Est Glom Filt Rate - Afr Amer 88 mL/min (>60); Estimated Creatinine Clearance 75.95 ml/min; Glucose 101 mg/dL (74-106); Lipase 38 U/L (13-75); Potassium 3.8 mmol/L (3.5-5.1); Protein, Total 7.2 g/dL (6.4-8.2); Sodium Level 140 mmol/L (136-145); Troponin-I HS (w/2H Reflex) 7 pg/mL (3.0-54.0)
[2024-01-05 20:24] VITALS: BP 158/90; PULSE 69; RESP 18; O2SAT 95
[2024-01-05 21:03] LABS: Reflex Troponin-HS? (from REC) Y
[2024-01-05 21:33] LABS: Troponin-I HS 7 pg/mL (3.0-54.0)
== END 2024-01-05 22:23 | disposition home or self-care (01) ==
PROVIDERS: Emergency Provider Emergency Medicine; PCP Family Medicine; Visit Provider Emergency Medicine
DX: R07.9 Chest pain, unspecified (principal); M06.9 Rheumatoid arthritis, unspecified; E78.5 Hyperlipidemia, unspecified; I10 Essential (primary) hypertension; M54.9 Dorsalgia, unspecified; G89.29 Other chronic pain; M48.061 Spinal stenosis, lumbar region without neurogenic claudication; J45.909 Unspecified asthma, uncomplicated; E03.9 Hypothyroidism, unspecified; G47.33 Obstructive sleep apnea (adult) (pediatric); K21.9 Gastro-esophageal reflux disease without esophagitis; Z79.890 Hormone replacement therapy; Z79.899 Other long term (current) drug therapy
CPT/HCPCS: 71045; 80048; 80076; 83690; 84484; 85025; 85379; 93005; 96374; 99284; A4216; J3490

== ENCOUNTER → 2024-02-28 | Outpatient (CLI) | payer MEDICARE, MEDICAID, SELFPAY ==
[2024-02-28 14:47] LABS: Absolute Lymphocyte Count 3.92 X10^3/uL (0.83-4.51); Absolute Neutrophil Count 4.9 X10^3/uL (2.0-7.7); Basophil# 0.08 X10^3/uL; Basophil% 0.8 % (0-1); Eosinophil# 0.19 X10^3/uL; Eosinophils% 1.9 % (0-5); Hematocrit 38.2 % (37-47); Hemoglobin 11.8 g/dL (12.0-15.0); Lymphocyte # 3.92 X10^3/ul (0.83-4.51); Lymphocyte % 40.1 % (19-41); Mean Corp Hgb Conc 30.9 g/dL (32-36); Mean Corpuscular Hgb 24.9 pg (27.0-32.0); Mean Corpuscular Volume 80.8 fL (81-99); Mean Platelet Vol. 9.7 fl (6.2-12.0); Monocyte# 0.64 X10^3/uL; Monocyte% 6.6 % (0-10); NRBC Flagged by Analyzer 0 % (0-5); Neutrophil # 4.89 X10^3/uL (2.7-7.7); Neutrophil % 50.1 % (47-70); Platelet Count 397 K/mm3 (150-450); RBC Distribution Width CV 15.9 % (11.6-14.6); RBC Distribution Width SD 46.5 fl (35.1-43.9); Red Blood Count 4.73 M/mm3 (4.2-5.4); White Blood Count 9.8 K/mm3 (4.4-11.0)
[2024-02-28 15:09] LABS: ALB/GLOB Ratio 0.8 RATIO (0.9-2.4); AST(SGOT) 16 U/L (15-37); Alanine Aminotransfer ALT/SGPT 13 U/L (13-56); Albumin, Serum 3.4 g/dL (3.2-5.0); Alkaline Phosphatase 90 U/L (45-117); Anion Gap 6 (5-15); BUN 15 mg/dL (7-18); BUN/Creat Ratio 18.8 RATIO (10-20); Calcium,Total 8.8 mg/dL (8.5-10.1); Chloride 106 mmol/L (98-107); EST Glomerular Filtration Rate 75 mL/min (>60); Est Glom Filt Rate - Afr Amer 91 mL/min (>60); Free T3 2.4 pg/mL (2.18-3.98); Globulin 4.1 g/dL (2.2-4.2); Glucose 99 mg/dL (74-106); Protein, Total 7.5 g/dL (6.4-8.2); Sodium Level 138 mmol/L (136-145); T4 Free Direct 1.02 ng/dL (0.76-1.46)
== END | disposition home or self-care (01) ==
LOC: BFHLAB 11:36
PROVIDERS: PCP Family Medicine; Visit Provider Family Medicine
DX: E03.9 Hypothyroidism, unspecified (principal); Z51.81 Encounter for therapeutic drug level monitoring
CPT/HCPCS: 36415; 80053; 84439; 84443; 84481; 85025

== ENCOUNTER 2024-05-18 13:36 | Emergency (ER) | payer MEDICARE, MEDICAID, SELFPAY ==
[2024-05-18 13:37] VITALS: BP 196/79; PULSE 71; RESP 18; TEMP 35.6; O2SAT 97; BMI 44.1
--- NOTE | 2024-05-18 13:50 | RAD_ITS ---
PROCEDURE: SHOULDER MIN 2 VIEWS REASON FOR EXAM: Pain TECHNIQUE: 4 views right shoulder COMPARISON: None. FINDINGS: Scattered degenerative changes. Osseous structures intact in the shoulder. No dislocations. Bone loss. Minimally displaced posterolateral right-sided rib fracture, potentially affecting 6th and 7th ribs. No underlying pneumothorax definitively seen. RAD/Shoulder min 2 Views IMPRESSION: As above. Reading Location: [facility]
--- NOTE | 2024-05-18 14:57 | EDS_ITS ---
HPI History of Present Illness HPI Narrative: Right shoulder pain due to injury 1 month ago Chief Complaint: Upper Extremity Injury Detail of Chief Complaint: Right shoulder pain and limited range of motion Informant: patient Occured/Mechanism Mechanism/Context: Yes fall Comment: Patient was falling. She grabbed object that she was falling and her right arm at the shoulder was pulled back Onset/Context/Timing Onset: Month(s) (1 month is slightly greater than 1 month. Patient) Context: Sudden Onset Timing: Continuous Quality of Pain: Dull and Aching Location: Right shoulder region Current Severity: Mild Maximum Severity: Moderate Worsened by: Movement and palpation Relieved by: Nothing Associated Symptoms Associated Symptoms: Positive for Loss of Funtion (Patient is able to abduct to 90 degrees. She cannot abduct past 90 degrees); Negative for Parasthesia or Weakness Narrative Narrative: Patient is a 69-year-old [id number] female. She presents because of injury that occurred over a month ago. She reports right shoulder pain. She presents because of persistent pain. She states she is unable to raise her arm above her head. She denies paresthesia, anesthesia medics. There is no history of direct trauma. She was walking out the door began to fell grabbed the door with her right upper extremity causing it to be abducted and externally rotated. There is no trauma to the shoulder or chest wall. Prior similar symptoms: No Recent Illness/Hospitalization: No [facility] Medical History Rheumatoid arthritis Pulmonary hypertension Bronchitis Asthma RAJNI (obstructive sleep apnea) GERD (gastroesophageal reflux disease) Depression Anxiety Hypothyroidism HTN (hypertension) Chronic back pain Home Medications ?Medication ?Instructions ?Recorded ?Last Taken ?Type paroxetine HCl 40 mg tablet (Paxil) 40 mg PO DAILY dep ression 01/29/13 12/22/21 History trazodone 50 mg tablet 100 mg PO QHS sleep 01/29/13 12/21/21 History esomeprazole magnesium 40 mg 40 mg PO BID GERD 5 12/22/21 History capsule,delayed release (Nexium) lorazepam 1 mg tablet 2 mg PO BID anxiety 10/11/16 12/22/21 History cholecalciferol (vitamin D3) 1,250 50,000 units PO KEITA Vit D deficiency 05/20/17 12/19/21 History mcg (50,000 unit) capsule albuterol sulfate 90 mcg/actuation 1 - 2 puff inhalati on Q6H PRN PRN 05/23/17 06/16/18 Rx aerosol inhaler Asthma ##1 hydrocodone-acetaminophen 5-325mg 1 ea PO TID PRN Pain 06/22/17 12/21/21 History 5mg-325mg ([place]) budesonide 180 mcg/actuation 2 puff inhalation BID SOB /wheezing 12/13/17 2 History breath activated powder inhaler (Pulmicort Flexhaler) levothyroxine 50 mcg tablet 50 mcg PO DAILY thyroid 12/21/21 History losartan 50 mg tablet 50 mg PO DAILY blood pressur e 07/04/20 12/22/21 History montelukast 10 mg tablet 10 mg PO DAILY allergies 12/22/21 History albuterol sulfate 90 mcg/actuation 1 - 2 puff inhalati on Q4H PRN PRN 04/13/21 Unknown Rx aerosol inhaler (Ventolin HFA) Wheezing #8.5 grams atorvastatin 40 mg tablet 40 mg PO QHS cholesterol 12/21/21 History azelastine 137 mcg (0.1 %) nasal 2 spray intranasal BI D 12/22/21 12/21/21 History spray antihistamine Allergy/AdvReac Type Severity Reaction Status Date / Time No Known Allergies Allergy Verified 05/18/24 13:39 Family History Father Cancer Mother Cancer Sister Cancer Brother Cancer Surgical History History of cholecystectomy History of hysterectomy History of back surgery History of hernia repair Social History Smoking Status: Never smoker second hand exposure: No alcohol intake: never substance use type: does not use ROS ROS ED Constitutional Constitutional ED: Denies chills, fever(s) or subjective Cardiovascular Cardiovascular: Denies chest pain or palpitations Respiratory/Chest Respiratory/Chest: Denies cough, dyspnea or dyspnea on exertion Gastrointestinal Gastrointestinal: Denies abdominal pain Genitourinary Genitourinary ED: Denies hematuria Neurologic Neurologic: Denies paresthesias or weakness EXAM Physical Exam Const Vital Signs: 05/18/24 13:37 Temperature 96.1 F L Temperature Source Oral Pulse Rate 71 Respiratory Rate 18 Blood Pressure 196/79 H Blood Pressure Mean 118 Pulse Ox 97 Oxygen Delivery Method Room Air Positive well nourished and well developed General Appearance ED: well developed and NAD; Negative for cyanotic or diaphoretic HEENT Reports moist mucous membranes normocephalic and atraumatic Eyes PERRL and EOMs intact bilaterally Eyes Narrative: No subconjunctival hemorrhage. Neck full ROM and supple Resp normal respiratory effort and clear to auscultation bilaterally Cardio regular rate, regular rhythm, S1 normal heart sound, S2 normal heart sound and no murmurs Extremity normal to inspection; Negative for full ROM Extremity Narrative: Patient is not able to abduct past 90 degrees. There is pain ovation over the clavicle, AC joint and proximal humerus. Axillary, median, radial and ulnar function intact. There is no complete complaint of pain to palpation over the lateral medial epicondyle, olecranon process or radial head. There is no pain ovation over the distal radius ulna, carpal bones or metacarpal bones. Neuro oriented x3, CN's II-XII intact bilaterally, moves all extremities, no focal motor deficits and no sensory deficits noted Skin General Skin Exam: Negative for petechiae Lesions: no lesions Rashes: no rashes MDM MDM MDM Narrative Medical decision making narrative: 4 view x-ray of the shoulder was obtained per nurse protocol. Differential is contusion versus fracture versus ligamentous injury. Suspect patient has a rotator cuff tear. Radiography Chest X-Ray - ED: Read by ED Physician (4 view x-ray of the shoulder reveals no fracture, subluxation dislocation. There may be an old right rib fracture. There is no mention pneumothorax. In light of the history I do not agree with the radiology read.) Diagnostic Testing: Clinical Impression(s) from Imaging Studies Shoulder X-Ray 05/18/24 13:50 IMPRESSION: As above. Reading Location: [facility] Discharge Plan Triage Chief Complaint: Upper Extremity Injury ED Provider: Federico Arango Dx/Rx/DC Orders Clinical Impression: Acute pain of right shoulder due to trauma, Partial tear of right rotator cuff, Injury due to fall Instructions: ED Rotator Cuff Tear Prescriptions: No Action paroxetine HCl [Paxil] 40 MG tablet 40 mg PO DAILY trazodone 50 MG tablet 100 mg PO QHS esomeprazole magnesium [Nexium] 40 MG capsule 40 mg PO BID lorazepam 1 MG tablet 2 mg PO BID cholecalciferol (vitamin D3) 50,000 UNIT capsule 50,000 units PO KEITA Patient Comments: takes q monday Rx Instructions: takes on monday albuterol sulfate 1 INHALER inhaler 1 - 2 puff INHALATION Q6H PRN PRN (Reason: Asthma) Qty: 1 0RF hydrocodone-acetaminophen [[place]] 1 EACH tablet 1 ea PO TID PRN (Reason: Pain) levothyroxine 50 MCG tablet 50 mcg PO DAILY Pulmicort Flexhaler 1 PUFF inhaler 2 puff inhalation BID Patient Comments: inhale 2 puffs twice daily losartan 50 MG tablet 50 mg PO DAILY montelukast 10 MG tablet 10 mg PO DAILY albuterol sulfate [Ventolin HFA] 90 mcg/actuation HFA aerosol inhaler 1 - 2 puff inhalation Q4H PRN PRN (Reason: Wheezing) Qty: 8.5 0RF atorvastatin 40 mg Tablet 40 mg PO QHS azelastine 137 mcg (0.1 %) aerosol,spray 2 spray intranasal BID Rx Instructions: administer into each nostril Primary Care Provider: Olivia Gates Referrals: Aayush Pack MD [Med Staff - Active Staff] - 5-7 Days Olivia Gates DO [Primary Care Provider] - Activity Restrictions/Additional Instructions: 1. Apply heat 6 times a day for the next several days. 2. Take either 3 ibuprofen tablets every 8 hours or 2 Aleve tablets every 12 hours for the next 3 to 5 days. 3. You were referred to Dr. Melendez for orthopedic follow-up since there is concern you may have a rotator cuff tear. Print Language: Khmer Disposition Disposition: Home, Self Care
[2024-05-18 15:25] VITALS: BP 156/89; PULSE 79; RESP 18; TEMP 36.7; O2SAT 95
== END 2024-05-18 15:27 | disposition home or self-care (01) ==
LOC: ED 15:07
PROVIDERS: Emergency Provider Emergency Medicine; PCP Family Medicine; Visit Provider Emergency Medicine
DX: S46.011A Strain of muscle(s) and tendon(s) of the rotator cuff of right shoulder, initial encounter (principal); M06.9 Rheumatoid arthritis, unspecified; W19.XXXA Unspecified fall, initial encounter; M54.9 Dorsalgia, unspecified; G89.29 Other chronic pain; I10 Essential (primary) hypertension; J45.909 Unspecified asthma, uncomplicated; G47.33 Obstructive sleep apnea (adult) (pediatric); E03.9 Hypothyroidism, unspecified
CPT/HCPCS: 73030; 99282

== ENCOUNTER → 2024-06-26 | Outpatient (CLI) | payer MEDICARE, MEDICAID, SELFPAY ==
--- NOTE | 2024-06-26 16:16 | MRI_ITS ---
PROCEDURE: MRI right shoulder without IV contrast REASON FOR EXAM: Pain TECHNIQUE: Multisequence multiplanar MR images of the right shoulder were obtained without the administration of intravenous contrast. COMPARISON: None. FINDINGS Mild/moderate supraspinatus tendinopathy with 2 small split tears at the anterior and mid insertional fibers. Infraspinatus and subscapularis tendons are intact. No significant rotator cuff muscle atrophy or edema. Long head biceps tendon is intact. Minimal posterior humeral head subluxation. Probable degenerative fraying of the posterosuperior and posterior labrum which is diffusely diminutive. No paralabral cysts. [id number] diffuse thinning of the glenoid cartilage. High-grade chondral thinning along the superomedial humeral head over a 15 mm diameter. No sizable glenohumeral joint effusion. Mild pericapsular edema along the inferior glenohumeral ligament. Acromioclavicular joint alignment is intact. No significant joint effusion. Mild acromioclavicular joint osteoarthritis including small marginal osteophytes and mild capsular hypertrophy. Negative for fracture or marrow replacement. Enthesopathic cysts along the anterior aspect of the greater and lesser humeral tuberosities. No significant fluid in the subacromial/subdeltoid bursa. MRI/Upper Ext Joint Only(Routine) IMPRESSION: 1. Supraspinatus tendinopathy with superimposed split tears at the anterior and mid insertion. 2. Mild glenohumeral and acromioclavicular joint osteoarthritis as detailed abo ve. 3. Mild pericapsular edema along the inferior glenohumeral ligament which may r elate to capsular sprain or adhesive capsulitis. Please correlate clinically. Reading Location[facility]
== END | disposition home or self-care (01) ==
LOC: MRI 16:14
PROVIDERS: PCP Family Medicine; Referring Provider Orthopaedic Surgery Sports Medicine; Visit Provider Orthopaedic Surgery Sports Medicine
DX: M25.511 Pain in right shoulder (principal); W19.XXXA Unspecified fall, initial encounter
CPT/HCPCS: 73221

== ENCOUNTER → 2024-08-13 | Outpatient (CLI) | payer MEDICARE, MEDICAID, SELFPAY | END | disposition home or self-care (01) | LOC: LABSPEC 15:06 | PROVIDERS: PCP Family Medicine; Referring Provider Family Medicine; Visit Provider Family Medicine | DX: R30.0 Dysuria (principal) | CPT/HCPCS: 87086; 87088 ==

== ENCOUNTER → 2024-08-20 | Outpatient (CLI) | payer MEDICARE, SELFPAY ==
[2024-08-20 16:21] LABS: Absolute Lymphocyte Count 3.62 X10^3/uL (0.83-4.51); Absolute Neutrophil Count 7.2 X10^3/uL (2.0-7.7); Basophil# 0.06 X10^3/uL; Basophil% 0.5 % (0-1); Eosinophil# 0.11 X10^3/uL; Eosinophils% 0.9 % (0-5); Hematocrit 38.4 % (37-47); Hemoglobin 11.7 g/dL (12.0-15.0); Lymphocyte # 3.62 X10^3/ul (0.83-4.51); Lymphocyte % 30.3 % (19-41); Mean Corp Hgb Conc 30.5 g/dL (32-36); Mean Corpuscular Hgb 24.5 pg (27.0-32.0); Mean Corpuscular Volume 80.5 fL (81-99); Mean Platelet Vol. 9.8 fl (6.2-12.0); Monocyte# 0.84 X10^3/uL; NRBC Flagged by Analyzer 0 % (0-5); Neutrophil # 7.23 X10^3/uL (2.7-7.7); Neutrophil % 60.6 % (47-70); Platelet Count 392 K/mm3 (150-450); RBC Distribution Width CV 16.8 % (11.6-14.6); RBC Distribution Width SD 48.6 fl (35.1-43.9); Red Blood Count 4.77 M/mm3 (4.2-5.4); White Blood Count 11.9 K/mm3 (4.4-11.0)
[2024-08-20 16:35] LABS: Hemoglobin A1c 6.1 % (<=5.6)
[2024-08-20 17:18] LABS: Free T3 2.1 pg/mL (2.18-3.98)
[2024-08-20 17:27] LABS: ALB/GLOB Ratio 1.2 RATIO (0.9-2.4); AST(SGOT) 17 U/L (<=31); Alanine Aminotransfer ALT/SGPT 11 U/L (<=34); Albumin, Serum 3.6 g/dL (3.4-4.8); Alkaline Phosphatase 92 U/L (35-104); Anion Gap 12 (5-15); BUN 13 mg/dL (4-19); BUN/Creat Ratio 14.9 RATIO (10-20); Calcium,Total 8.9 mg/dL (7.6-11.0); Carbon Dioxide 23.8 mmol/L (21.0-32.0); Chloride 104 mmol/L (98-108); Creatinine, Serum 0.85 mg/dL (0.70-1.20); EST Glomerular Filtration Rate 73 (>60); Globulin 3.1 g/dL (2.2-4.2); Glucose 87 mg/dL (70-99); Protein, Total 6.7 g/dL (5.9-8.4); Sodium Level 139 mmol/L (133-145); Total Bilirubin < 0.15 mg/dL (0.00-1.30)
== END | disposition home or self-care (01) ==
LOC: LAB 13:53
PROVIDERS: PCP Family Medicine; Referring Provider Family Medicine; Visit Provider Family Medicine
DX: E03.9 Hypothyroidism, unspecified (principal); Z51.81 Encounter for therapeutic drug level monitoring; R73.01 Impaired fasting glucose
CPT/HCPCS: 36415; 80053; 83036; 84439; 84443; 84481; 85025

== ENCOUNTER 2024-08-21 15:46 | Inpatient (IN) | payer MEDICARE, MEDICAID, SELFPAY ==
--- NOTE | 2024-08-20 13:33 | EKG12_ITS ---
Test Reason : PREOP Blood Pressure : */* mmHG Vent. Rate : 63 BPM Atrial Rate : 63 BPM P-R Int : 144 ms QRS Dur : 82 ms QT Int : 442 ms P-R-T Axes : 31 30 54 degrees QTcB Int : 452 ms Normal sinus rhythm Normal ECG Confirmed by Mino Gomez ([id number]), newspaper photo editor CHARU GURROLA ([id number]) on 08/22/2024 10:09:38 AM Referred By: Macario Sandoval Confirmed By: Mino Gomez
--- NOTE | 2024-08-20 15:48 | PAT.ANE_ITS ---
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 When Was Last Pacemaker Check QUESTION #4 FULL TEXT: You/Your Family Experience fever (hyperthermia) with Anesthesia Last Oral Intake Last Oral intake: Last Oral Intake NPO since Meds taken in AM with sips of water? 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 Female Yes 08/16/24 13:41 HX of Motion Sickness No 08/16/24 13:41 HX of N/V After Surgery No 08/16/24 13:41 Non-Smoker Yes 08/16/24 13:41 Duration of Surgery greater Yes 08/16/24 13:41 than 60 minutes Number of Risk Factors 3 08/16/24 13:41 PONV Score Moderate Risk 08/16/24 13:41 Height & Weight Height & Weight: Anesthesia: Height & Weight Height 5 ft 3 in 07/05/24 09:44 Respiratory Assessment Respiratory Assessment - railroad commissioner: Respiratory Tract Infection Hx - railroad commissioner Hx Respiratory Tract Infection No 08/16/24 13:41 STOP Sleep Apnea STOP Sleep Apnea - railroad commissioner: STOP Sleep Apnea - railroad commissioner Hx Hypertension Yes: CONTROLLED WITH MED 08/16/24 13:41 Hx Sleep Apnea No 08/16/24 13:41 CPAP No 12/22/21 19:02 BIPAP No 12/22/21 19:02 Do you snore loudly (louder No 08/16/24 13:41 than talking or can be heard Do you often feel tired/ No 08/16/24 13:41 fatigued/ sleepy during daytime? Has anyone observed you stop No 08/16/24 13:41 breathing during sleep? STOP Results Negative 08/16/24 13:41 QUESTION #5 FULL TEXT : Do you snore loudly (louder than talking or can be heard through closed doors)? 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 Specify any problems Hx of Preganancy in last 3 No 08/16/24 13:41 Months Nurse Filling Out Transfusion DSCHRIBER 08/16/24 13:41 & Questions: Date: 08/16/24 08/16/24 13:41 Time: 13:43 08/16/24 13:41 Patient unable to answer at this time (ie. confused, unrespo /Reproduction History /Reproductive History - railroad commissioner: /Reproductive Hx- railroad commissioner Hx Now No 08/16/24 13:41 Gestational Age (in weeks): EDC: Hx Hx Para Hx Section SAB No 08/16/24 13:41 Active Medications Active Medications: Current Medications Generic Name Dose Route Start Last Admin Trade Name Freq PRN Reason Stop Dose Admin Cefazolin Sodium 2 gm/ Sodium 110 mls @ 150 mls/hr 08/21/24 09:00 Chloride IV 08/21/24 09:43 INTRAOP ONE PFS Medical History Wears glasses Wears dentures Post-menopausal Alcohol use Ambulates with cane Arthritis Bladder disease Back pain History of hiatal hernia Non-smoker Persistent dry cough Leg cramps History of pain when walking History of stress test History of echocardiogram Hx of fracture of wrist 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, right shoulder Right rotator cuff tear Right shoulder pain Right rib fracture Pulmonary hypertension Bronchitis GERD (gastroesophageal reflux disease) Depression Anxiety Hypothyroidism HTN (hypertension) Chronic back pain Home Medications ?Medication ?Instructions ?Recorded ?Last Taken ?Type paroxetine HCl 40 mg tablet (Paxil) 40 mg PO DAILY dep ression 01/29/13 12/22/21 History trazodone 50 mg tablet 50 mg PO QHS sleep 01/29/13 12/21/21 History esomeprazole magnesium 40 mg 40 mg PO BID GERD 5 12/22/21 History capsule,delayed release (Nexium) lorazepam 1 mg tablet 2 mg PO BID anxiety 10/11/16 12/22/21 History cholecalciferol (vitamin D3) 1,250 50,000 units PO KEITA Vit D deficiency 05/20/17 12/19/21 History mcg (50,000 unit) capsule hydrocodone-acetaminophen 5-325mg 1 ea PO TID PRN Pain 06/22/17 12/21/21 History 5mg-325mg ([place]) budesonide 180 mcg/actuation 2 puff inhalation BID SOB /wheezing 12/13/17 12/21/21 History breath activated powder inhaler (Pulmicort Flexhaler) losartan 50 mg tablet 50 mg PO DAILY blood pressur e 07/04/20 12/22/21 History montelukast 10 mg tablet 10 mg PO DAILY allergies 12/22/21 History albuterol sulfate 90 mcg/actuation 1 - 2 puff inhalati on Q4H PRN PRN 04/13/21 Unknown Rx aerosol inhaler (Ventolin HFA) Wheezing #8.5 grams azelastine 137 mcg (0.1 %) nasal 2 spray intranasal BI D PRN 12/22/21 12/21/21 History spray antihistamine albuterol sulfate 2.5 mg/3 mL 2.5 mg inhalation 4X/DAY PRN PRN 08/16/24 Unknown History (0.083 %) solution for nebulization shortness of breat h or wheezing levothyroxine 88 mcg tablet 88 mcg PO DAILY 08/16/24 U nknown History Allergy/AdvReac Type Severity Reaction Status Date / Time No Known Allergies Allergy Verified 08/16/24 13:36 Family History Father Cancer Mother Cancer Sister Cancer Brother Cancer Surgical History History of esophagogastroduodenoscopy (EGD) Hx of colonoscopy History of back surgery History of cholecystectomy History of hysterectomy History of back surgery History of hernia repair Social History household members: children Smoking Status: Never smoker second hand exposure: No alcohol intake: never substance use type: does not use Recommendation Anesthesia Recommendation Anesthesia recommendation: OPTIMIZED for anesthesia
[2024-08-20 16:22] LABS: Hematocrit 38.3 % (37-47); Hemoglobin 11.7 g/dL (12.0-15.0); Mean Corp Hgb Conc 30.5 g/dL (32-36); Mean Corpuscular Hgb 24.6 pg (27.0-32.0); Mean Corpuscular Volume 80.5 fL (81-99); Platelet Count 390 K/mm3 (150-450); RBC Distribution Width CV 16.8 % (11.6-14.6); RBC Distribution Width SD 48.8 fl (35.1-43.9); Red Blood Count 4.76 M/mm3 (4.2-5.4); White Blood Count 12.4 K/mm3 (4.4-11.0)
[2024-08-20 17:18] LABS: Anion Gap 12 (5-15); BUN 13 mg/dL (4-19); BUN/Creat Ratio 14.8 RATIO (10-20); Calcium,Total 8.9 mg/dL (7.6-11.0); Carbon Dioxide 23.9 mmol/L (21.0-32.0); Chloride 103 mmol/L (98-108); Creatinine, Serum 0.86 mg/dL (0.70-1.20); EST Glomerular Filtration Rate 73 (>60); Glucose 86 mg/dL (70-99); Sodium Level 139 mmol/L (133-145)
[2024-08-21] VITALS (30 sets, daily range): BP systolic 112–170; BP diastolic 61–115; PULSE 61–95; RESP 14–24; TEMP 36.3–36.7; O2SAT 86–97; BMI 42.1
[2024-08-21] MEDS: Lactated Ringers 1,000 ML 15 ML IV (07:49)
--- NOTE | 2024-08-21 08:02 | PRE.ANES_ITS ---
ASA Classification* ASA Classification ASA Classification: 3 Assessment & Plan Anesthesia* Anesthesia Assessment Anesthesia Assessment: Discussed sedation and/or anesthesia options, risks, benefits, and alternatives with patient/parents/legal guardian/POA. Questions invited. The patient/parents/legal guardian/POA seems to understand and agrees to proceed with anesthesia plan. Reviewed the physical assessment, medical history, allergy history and patient home medications list prior to surgery/procedure/anesthetic and documented any changes. Performed airway and anesthesia risk assessments. Anesthesia Type Anesthesia Type: General and Block (Patient is consented for interscalene block.) History Source History Obtained from:: Patient and Chart Anesthesia Focused Assessment* Temperature: 98.1 F Pulse Rate: 61 Blood Pressure: 145/67 Respiratory Rate: 16 Pulse Ox: 94 Oxygen Delivery Method: Room Air Airway Assessment Mouth opens: >3 cm Mallampati Score: III Teeth Condition: Dentures (Patient has upper dentures. They they are out.) and Missing (Patient is edentulous on the bottom.) Neck Range of motion (ROM): Limited ROM (Somewhat decreased extension.) Focused Labs Anesthesia Preop lab: CBC WBC 12.4 K/mm3 (4.4-11.0) H 08/20/24 14:12 5 RBC 4.76 M/mm3 (4.2-5.4) 08/20/24 14:12 08/20/24 Hgb 11.7 g/dL (12.0-15.0) L 08/20/24 14:12 5 Hct 38.3 % (37-47) 08/20/24 14:12 08/20/24 Plt Count 390 K/mm3 (150-450) 08/20/24 14:12 08/20/24 CHEMISTRY Potassium 4.0 mmol/L (3.3-5.1) 08/20/24 14:12 08/20/24 Sodium 139 mmol/L (133-145) 08/20/24 14:12 08/20/24 Magnesium 2.1 mg/dL (1.6-2.6) 12/22/21 14:20 12/22/21 BUN 13 mg/dL (4-19) 08/20/24 14:12 08/20/24 Creatinine 0.85 mg/dL (0.70-1.20) 08/20/24 14:12 08/20/24 Glucose 87 mg/dL (70-99) 08/20/24 14:12 08/20/24 TSH 2.620 uIU/mL (0.300-4.200) 08/20/24 14:08/08 COAG PT 13.9 SECONDS (11.7-14.9) 07/22/18 19:14 Pre-Assessment Diagnosis/Proposed Procedure Planned Operative Procedure(s): RIGHT SHOULDER ARTHROSCOPY SUBCROMIAL DECOMPRESSION DISTAL CLAVICLE RTC REPAIR Anesthesia History 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 When Was Last Pacemaker Check QUESTION #4 FULL TEXT: You/Your Family Experience fever (hyperthermia) with Anesthesia Last Oral Intake Last Oral intake: Last Oral Intake NPO since 06:30 08/21/24 07:34 Meds taken in AM with sips of Yes 08/21/24 07:34 water? 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 Female Yes 08/16/24 13:41 HX of Motion Sickness No 08/16/24 13:41 HX of N/V After Surgery No 08/16/24 13:41 Non-Smoker Yes 08/16/24 13:41 Duration of Surgery greater Yes 08/16/24 13:41 than 60 minutes Number of Risk Factors 3 08/16/24 13:41 PONV Score Moderate Risk 08/16/24 13:41 Height & Weight Height & Weight: Anesthesia: Height & Weight Height 5 ft 3 in 08/21/24 07:34 Weight: 108 kg 08/21/24 07:34 Body Mass Index (BMI) 42.1 08/21/24 07:34 Respiratory Assessment 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 Has anyone observed you stop No 08/16/24 13:41 breathing during sleep? STOP Results Negative 08/16/24 13:41 QUESTION #5 FULL TEXT : Do you snore loudly (louder than talking or can be heard through closed doors)? 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 Specify any problems Hx of Preganancy in last 3 No 08/16/24 13:41 Months Nurse Filling Out Transfusion DSCHRIBER 08/16/24 13:41 & Questions: Date: 08/16/24 08/16/24 13:41 Time: 13:43 08/16/24 13:41 Patient unable to answer at this time (ie. 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: /Reproductive Hx- senior electrical project manager Hx Now No 08/16/24 13:41 Gestational Age (in weeks): EDC: Hx Hx Para Hx Section SAB No 08/16/24 13:41 Active Medications Active Medications: Current Medications Generic Name Dose Route Start Last Admin Trade Name Freq PRN Reason Stop Dose Admin Cefazolin Sodium 2 gm/ Sodium 110 mls @ 150 mls/hr 08/21/24 09:00 Chloride IV 08/21/24 09:43 INTRAOP ONE Lactated Ringer's 1,000 mls @ 15 mls/hr 08/21/24 07:15 08/21/24 07:49 IV 15 mls/hr .Q48H GILA Administration PFSH Medical History Wears glasses Wears dentures Post-menopausal Alcohol use Ambulates with cane Arthritis Bladder disease Back pain History of hiatal hernia Non-smoker Persistent dry cough Leg cramps History of pain when walking History of stress test History of echocardiogram Hx of fracture of wrist 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, right shoulder Right rotator cuff tear Right shoulder pain Right rib fracture Pulmonary hypertension Bronchitis GERD (gastroesophageal reflux disease) Depression Anxiety Hypothyroidism HTN (hypertension) Chronic back pain Home Medications ?Medication ?Instructions ?Recorded ?Last Taken ?Type paroxetine HCl 40 mg tablet (Paxil) 40 mg PO DAILY dep ression 01/29/13 08/21/24 06:30 History trazodone 50 mg tablet 50 mg PO QHS sleep 01/29/13 12/21/21 History esomeprazole magnesium 40 mg 40 mg PO BID GERD 5 08/21/24 04:29 History capsule,delayed release (Nexium) lorazepam 1 mg tablet 2 mg PO BID anxiety 10/11/16 08/21/24 06:30 History cholecalciferol (vitamin D3) 1,250 50,000 units PO KEITA Vit D deficiency 05/20/17 12/19/21 History mcg (50,000 unit) capsule hydrocodone-acetaminophen 5-325mg 1 ea PO TID PRN Pain 06/22/17 12/21/21 History 5mg-325mg ([place]) budesonide 180 mcg/actuation 2 puff inhalation BID SOB /wheezing 12/13/17 12/21/21 History breath activated powder inhaler (Pulmicort Flexhaler) losartan 50 mg tablet 50 mg PO DAILY blood pressur e 07/04/20 08/21/24 06:30 History montelukast 10 mg tablet 10 mg PO DAILY allergies 08/21/24 04:30 History albuterol sulfate 90 mcg/actuation 1 - 2 puff inhalati on Q4H PRN PRN 04/13/21 Unknown Rx aerosol inhaler (Ventolin HFA) Wheezing #8.5 grams azelastine 137 mcg (0.1 %) nasal 2 spray intranasal BI D PRN 12/22/21 12/21/21 History spray antihistamine albuterol sulfate 2.5 mg/3 mL 2.5 mg inhalation 4X/DAY PRN PRN 08/16/24 Unknown History (0.083 %) solution for nebulization shortness of breat h or wheezing levothyroxine 88 mcg tablet 88 mcg PO DAILY 08/16/24 0 08/21/24 04:30 History Allergy/AdvReac Type Severity Reaction Status Date / Time No Known Allergies Allergy Verified 08/21/24 07:27 Family History Father Cancer Mother Cancer Sister Cancer Brother Cancer Surgical History History of esophagogastroduodenoscopy (EGD) Hx of colonoscopy History of back surgery History of cholecystectomy History of hysterectomy History of back surgery History of hernia repair Social History household members: children Smoking Status: Never smoker second hand exposure: No alcohol intake: never substance use type: does not use Review of Systems (Anesthesia) ROS Narrative System reviewed and no additional complaints, except as documented.
--- NOTE | 2024-08-21 08:54 | HP.PCM_ITS ---
HPI - General HPI Narrative NENA KRISHNAN, is a 69 F who presents for right shoulder arthroscopy, subacromial decompression, distal clavicle excision, rotator cuff repair. No changes to history and physical exam. Risks alternatives benefits discussed as well as postoperative instructions and narcotic counseling. Right shoulder marked. Patient understands wishes to proceed no further questions or concerns. MR#: [id number] Acct: [id number] Name: NENA KRISHNAN Rep #: [id number] : 1955 Provider: Dr. Macario Sandoval MD Age/Sex: 69/F Location: [facility] [place] Status: Signed Intake Vital Signs 05/30/2512:25 07/05/2508:44 Height 5 ft 3 in 5 ft 3 in Weight: 240 lb 240 lb BMI 42.5 42.5 Intake Visit Reasons: RIGHT SHOULDER Chief Complaint: Right shoulder MRI review Accompanied by: Self Is patient in pain?: Yes Pain scale (1-10): 1 Allergies No Known Allergies Allergy (Verified 07/05/24 09:47) Medications ?Medication ?Instructions ?Recorded ?Confirmed ?Type paroxetine HCl 40 mg tablet (Paxil) 40 mg PO DAILY depression 01/29/1307/05 History trazodone 50 mg tablet 100 mg PO QHS sleep 01/29/13 07/05/24 Hi story esomeprazole magnesium 40 mg 40 mg PO BID GERD 05/16/14 07/05/24 Hist ory capsule,delayed release (Nexium) lorazepam 1 mg tablet 2 mg PO BID anxiety 10/11/16 07/05/24 Hi story cholecalciferol (vitamin D3) 1,250 50,000 units PO KEITA Vit D deficiency 05/1107/05/24 History mcg (50,000 unit) capsule hydrocodone-acetaminophen 5-325mg 1 ea PO TID PRN Pain 06/22/17 07/05/24 H istory 5mg-325mg ([place]) budesonide 180 mcg/actuation 2 puff inhalation BID SOB/wheezing 12/1307/05/24 History breath activated powder inhaler (Pulmicort Flexhaler) levothyroxine 50 mcg tablet 50 mcg PO DAILY thyroid 12/13/17 5 History losartan 50 mg tablet 50 mg PO DAILY blood pressure 07/04/20 0 07/05/24 History montelukast 10 mg tablet 10 mg PO DAILY allergies 07/04/20 History albuterol sulfate 90 mcg/actuation 1 - 2 puff inhalation Q4H PRN PRN 07/05/24 Rx aerosol inhaler (Ventolin HFA) Wheezing #8.5 grams azelastine 137 mcg (0.1 %) nasal 2 spray intranasal BID 12/22/21 07/05/24 History spray antihistamine Have you fallen in the past year?: No PFSH Medical History 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, right shoulder Right rotator cuff tear Right shoulder pain Right rib fracture Rheumatoid arthritis Pulmonary hypertension Bronchitis Asthma RAJNI (obstructive sleep apnea) GERD (gastroesophageal reflux disease) Depression Anxiety Hypothyroidism HTN (hypertension) Chronic back pain Surgical History History of cholecystectomy History of hysterectomy History of back surgery History of hernia repair Family History Father CancerMother CancerSister CancerBrother Cancer Social History household members: children Smoking Status: Never smoker second hand exposure: No alcohol intake: never substance use type: does not use HPI RIGHT SHOULDER Details: This documentation accurately reflects the service provided and the decisions made by me, Dr. Macario Sandoval MD 07/05/24 0847. Part of today?s visit was documented by [ ], acting as scribe. NENA KRISHNAN is a 69 year old F here today for Follow-up right shoulder MRI. Patient still having pain lateral aspect of the arm radiating down the arm worse with lifting tries to use left hand more. Worse with reaching up into the cupboards. Patient has tried multiple injections and rounds of physical therapy as well as home-based exercises. Supplemental Info [facility] Imaging Services [address] [place], [place] [id number] Upper Ext Joint Only(Routine) MR#: [id number] Acct: [id number] Name: NENA KRISHNAN Rep #: [id number] : 1955 F 69 From: Manpreet Schwarz DO PCP: Dr. Olivia Gates DO Status: REG CLI Study: Upper Ext Joint Only(Routine) Date of Exam: 06/26/24 Exam# [id number] Ordering Dr: Macario Sandoval MD PROCEDURE: MRI right shoulder without IV contrast REASON FOR EXAM: Pain TECHNIQUE: Multisequence multiplanar MR images of the right shoulder were obtained without the administration of intravenous contrast. COMPARISON: None. FINDINGS Mild/moderate supraspinatus tendinopathy with 2 small split tears at the anterior and mid insertional fibers. Infraspinatus and subscapularis tendons are intact. No significant rotator cuff muscle atrophy or edema. Long head biceps tendon is intact. Minimal posterior humeral head subluxation. Probable degenerative fraying of the posterosuperior and posterior labrum which is diffusely diminutive. No paralabral cysts. Roic-fw-tvmcsche diffuse thinning of the glenoid cartilage. High-grade chondral thinning along the superomedial humeral head over a 15 mm diameter. No sizable glenohumeral joint effusion. Mild pericapsular edema along the inferior glenohumeral ligament. Acromioclavicular joint alignment is intact. No significant joint effusion. Mild acromioclavicular joint osteoarthritis including small marginal osteophytes and mild capsular hypertrophy. Negative for fracture or marrow replacement. Enthesopathic cysts along the anterior aspect of the greater and lesser humeral tuberosities. No significant fluid in the subacromial/subdeltoid bursa. MRI/Upper Ext Joint Only(Routine) IMPRESSION: 1. Supraspinatus tendinopathy with superimposed split tears at the anterior and mid insertion. 2. Mild glenohumeral and acromioclavicular joint osteoarthritis as detailed above. 3. Mild pericapsular edema along the inferior glenohumeral ligament which may relate to capsular sprain or adhesive capsulitis. Please correlate clinically. [facility] independently reviewed the imaging. Concur with radiologist report. Coding Level of Care Code Off vis,est,level 3 Diagnoses Right shoulder pain M25.511 Right rotator cuff tear M75.101 Primary osteoarthritis, right shoulder M19.011 Arthrosis of right acromioclavicular joint M19.011 Assessment and Plan Assessment and Plan (1) Right shoulder pain: Status: Acute Plan: NENA KRISHNAN is a 69 year old F here today for Follow-up right shoulder MRI, showing Supraspinatus tendinopathy with superimposed split tears at the anterior and mid insertion, mild glenohumeral and acromioclavicular joint OA, and mild pericapsular edema along the inferior glenohumeral ligament which may relate to capsular sprain or adhesive capsulitis. Patient counseled on the pros and cons risks and benefits of continued nonoperative management versus surgery. In this case surgery be in the form of a right shoulder arthroscopy, subacromial decompression, distal clavicle excision, rotator cuff repair. Patient wished to go ahead with that they understood no further questions or concerns. Patient is a non-smoker no diabetes and no blood thinners. Pros and cons risks and benefits were discussed with the patient including but not limited to infection, pain, stiffness, bleeding, damage to surrounding structures, neurovascular injury, recurrence or retear, failure or wear of hardware or fixation, instability, fracture, deep vein thrombosis and pulmonary embolism, anesthetic risks, , patient dissatisfaction, need for further surgery and other risks. Patient understood and wished to proceed with surgery, and signed the informed consent documentation. Patient counselled on non-operative and operative means of treating shoulder pain. Conservative options include but not limited to: 1. Rest and Activity Modification: Giving your shoulder time to heal by avoiding movements that cause pain can help. This may involve limiting overhead activities or heavy lifting. 2. Physical Therapy: A physical therapist can guide you through exercises that strengthen the muscles around the shoulder, improve flexibility, and reduce strain on the rotator cuff tendon. 3. Ice and Heat Therapy: Applying ice to the shoulder can help reduce swelling and pain, especially after activity. Heat can be helpful to relax tense muscles and improve blood flow before exercises. 4. Anti-Inflammatory Medications: Fkiy-rox-pbbdrtp medications like ibuprofen or naproxen can help reduce pain and inflammation in the tendon. 5. Corticosteroid Injections: If the pain is more severe, a steroid injection can reduce inflammation in the shoulder and provide relief for a longer period. 6. Platelet-Rich Plasma (PRP) Injection: This treatment involves using your own blood to promote healing in the tendon. The plasma is rich in growth factors that can encourage tissue repair. 7. TENS (Transcutaneous Electrical Nerve Stimulation): This therapy uses a small electrical current to help manage pain and promote healing by stimulating nerves. (2) Right rotator cuff tear: Status: Acute (3) Primary osteoarthritis, right shoulder: Status: Acute (4) Arthrosis of right acromioclavicular joint: Status: Acute Clinical Quality Measures Falls Risk Screening/Assistive Devices Have you fallen in the past year?: No Ortho Exam General General: Yes no acute distress Neurologic: Yes alert and Yes oriented x3 Psychologic: Yes reasonable and appropriate Right Shoulder Skin/Wound: Yes CDI, No ecchymosis, No erythema and No swelling Testing: Positive Hawkin's, Neer's, Speed's, TTP Biceps, TTP AC Joint, empty can and cross arm; Negative Drop Arm or scapular winging SHOULDER: normal motor and sens to ax nerve, and MRU and AIN/PIN Active forward elevation to 90 degrees passively to 155 degrees and then limited by pain after that. External rotation 40 degrees again limited by pain. Strength in forward elevation 4 out of 5. ER 4/5. [facility] Medical History Wears glasses Wears dentures Post-menopausal Alcohol use Ambulates with cane Arthritis Bladder disease Back pain History of hiatal hernia Non-smoker Persistent dry cough Leg cramps History of pain when walking History of stress test History of echocardiogram Hx of fracture of wrist 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, right shoulder Right rotator cuff tear Right shoulder pain Right rib fracture Pulmonary hypertension Bronchitis GERD (gastroesophageal reflux disease) Depression Anxiety Hypothyroidism HTN (hypertension) Chronic back pain Home Medications ?Medication ?Instructions ?Recorded ?Last Taken ?Type paroxetine HCl 40 mg tablet (Paxil) 40 mg PO DAILY dep ression 01/29/13 08/21/24 06:30 History trazodone 50 mg tablet 50 mg PO QHS sleep 01/29/13 12/21/21 History esomeprazole magnesium 40 mg 40 mg PO BID GERD 5 08/21/24 04:29 History capsule,delayed release (Nexium) lorazepam 1 mg tablet 2 mg PO BID anxiety 10/11/16 08/21/24 06:30 History cholecalciferol (vitamin D3) 1,250 50,000 units PO KEITA Vit D deficiency 05/20/17 12/19/21 History mcg (50,000 unit) capsule hydrocodone-acetaminophen 5-325mg 1 ea PO TID PRN Pain 06/22/17 12/21/21 History 5mg-325mg ([place]) budesonide 180 mcg/actuation 2 puff inhalation BID SOB /wheezing 12/13/17 12/21/21 History breath activated powder inhaler (Pulmicort Flexhaler) losartan 50 mg tablet 50 mg PO DAILY blood pressur e 07/04/20 08/21/24 06:30 History montelukast 10 mg tablet 10 mg PO DAILY allergies 08/21/24 04:30 History albuterol sulfate 90 mcg/actuation 1 - 2 puff inhalati on Q4H PRN PRN 04/13/21 Unknown Rx aerosol inhaler (Ventolin HFA) Wheezing #8.5 grams azelastine 137 mcg (0.1 %) nasal 2 spray intranasal BI D PRN 12/22/21 12/21/21 History spray antihistamine albuterol sulfate 2.5 mg/3 mL 2.5 mg inhalation 4X/DAY PRN PRN 08/16/24 Unknown History (0.083 %) solution for nebulization shortness of breat h or wheezing levothyroxine 88 mcg tablet 88 mcg PO DAILY 08/16/24 0 08/21/24 04:30 History Allergy/AdvReac Type Severity Reaction Status Date / Time No Known Allergies Allergy Verified 08/21/24 07:27 Family History Father Cancer Mother Cancer Sister Cancer Brother Cancer Surgical History History of esophagogastroduodenoscopy (EGD) Hx of colonoscopy History of back surgery History of cholecystectomy History of hysterectomy History of back surgery History of hernia repair Social History household members: children Smoking Status: Never smoker second hand exposure: No alcohol intake: never substance use type: does not use Vital Signs Vital Signs Vital Signs: 08/21/24 07:34 08/21/24 07:34 08/21/24 08:08 Temperature 98.1 F 98.1 F Temperature Source Temporal Pulse Rate 61 61 Respiratory Rate 16 16 Respiratory Pattern Normal Blood Pressure 145/67 H 145/67 H Blood Pressure Mean 93 Blood Pressure Source Monitor Blood Pressure Position Left Lateral Blood Pressure Location Left Forearm Pulse Ox 94 94 Oxygen Delivery Method Room Air Room Air Weight Weight: 238 lb 1.588 oz Body Mass Index (BMI) 42.1 Results Lab / Micro Data 08/20/24 14:12 08/20/24 14:12 Labs: Laboratory Results - last 24 hr 08/20/24 14:12: WBC 12.4 H, RBC 4.76, Hgb 11.7 L, Hct 38.3, MCV 80.5 L, MCH 24.6 L, MCHC 30.5 L, RDW Std Deviation 48.8 H, RDW Coeff of Patrick 16.8 H, Plt Count 390, MPV 10.0, Sodium 139, Potassium 4.0, Chloride 103, Carbon Dioxide 23.9, Anion Gap 12, BUN 13, Creatinine 0.86, Est GFR (MDRD) Non-Af 73, BUN/Creatinine Ratio 14.8, Glucose 86, Calcium 8.9, TSH 2.620
[2024-08-21] MEDS: Cefazolin 2 GM in 0.9% Normal Saline (100mL Bag) 100 ML IV (09:30)
[2024-08-21] MEDS: Epinephrine (1 mg/ml) 1 MG/ML VIAL (09:40)
--- NOTE | 2024-08-21 10:28 | PCM.OPRPT ---
Problems Associated Problem List Diagnoses (1) Arthrosis of right acromioclavicular joint: (2) Primary osteoarthritis, right shoulder: (3) Right rotator cuff tear: (4) Right shoulder pain: Procedures Musculoskeletal [id number]-29xxx: Other Procedure See Report Operative Report (Standard) Operative Information Date of Procedure: 08/21/24 Pre-Operative Diagnosis: Right shoulder impingement syndrome, rotator cuff tear, AC joint arthrosis, osteoarthritis Post-Operative Diagnosis: Same Surgery/Procedure Performed: Right shoulder arthroscopy, subacromial decompression, debridement, distal clavicle excision, rotator cuff repair manager nc: Yes Completions Engineer: graham Tasks completed by international first officer: Retracting Additional medical services assistant?: No Type of Anesthesia: Block,Regional and General RN Documented Start/Stop Times: Operation Date: 08/21/24 09:00 Case Time Into Pre-Op 08/21/24 07:04 Anesthesia Start 08/21/24 09:20 Into Room 08/21/24 09:20 Procedure Start 08/21/24 09:45 Procedure Start Time: 09:45 Procedure Stop Time: 10:31 Select all DRAINS/GRAFTS/IMPLANTS that apply: Implanted device Implanted device details: Arthrex trans tendon knotless fiber tack RC anchors x2 and 4.75 mm swivel lock bio composite Estimated Blood Loss: 25 Specimen collected: No Description of surgery: Patient brought to the operating room theater. Placed supine on the table. 2 g IV Ancef administered prior to the start of the case. General anesthesia induced. Patient transferred right side up lateral decubitus beanbag positioner. Axillary roll used. All bony prominences padded. SCDs on the legs. Upper extremity prepped and draped in the usual sterile fashion with chlorhexidine-based prep solution allowing over 3 minutes drying time prior to draping. 10 pounds of inline traction with the arm in 45 degrees of abduction was used. Preoperative timeout performed to confirm the site patient and the surgery. Began by inserting the arthroscope into the intra-articular portion of the shoulder through a standard posterior arthroscopy portal. Did a full diagnostic arthroscopy. Cartilage on the glenoid had up to grade 3 and 4 changes thick unstable cartilage flap I did a debridement of that at the 4 o'clock position. The labrum had extensive fraying did a debridement of the most of the anterior labrum as well as posterior labrum and the rotator interval. Upper border subscapularis - Normal. Long head of the biceps was intact thin no fraying or instability. Did an extensive debridement intra-articularly. There is also loose cartilage bodies which I removed. I did this through a standard inside-out spinal needle localized portal through the rotator interval. I then identified the undersurface of rotator cuff tendon at the supraspinatus there is some fraying at the attachment no full-thickness obvious tears but I marked the area of high-grade fraying from the undersurface. Next I inserted the arthroscope into the subacromial space identified the spinal needle location of the tearing of the supraspinatus tendon at the split tear area on the MRI. Next I performed a subacromial decompression through a lateral portal. Did this for 4 mm using a high-speed bur. Identified the distal clavicle. I did a distal clavicle excision down to flat margins through the anterior portal to flat margins. Hemostasis achieved throughout the case. I identified the tearing area. There is 1 area of high-grade near complete tearing but with mostly good fibers the remaining throughout the supraspinatus tendon so I elected to do a trans tendon repair. I inserted 2 knotless Arthrex fiber tack RC anchors 2.4 mm at the anterior leading edge of the tendon as well as at the supraspinatus infraspinatus junction. I then used the repair stitches in a crisscrossing fashion to create a horizontal mattress configuration with 2 sutures converting these through the knotless mechanism and securing this down tight with good compression of the footprint. I also used a power pick instrument to perform multiple trephination's of the greater tuberosity to stimulate healing. I then took the repair stitches the 2 free ends and then inserted these into the Arthrex 4.75 mm bio composite swivel lock anchor just laterally to create a triangular configuration of repair. I cut the suture short this achieved good compression of the footprint of the tear area. Arthroscopy pictures taken and saved throughout the case. Case terminated. Arthroscope withdrawn. Wounds thoroughly irrigated cleaned with wet and dry saline. Portals closed with 3-0 Monocryl sutures. I used cannulas throughout I used 3 cannulas laterally I closed these portals with the Monocryl suture. I cleaned them with wet and dry dressing followed application of Steri-Strips Adaptic 4 x 4 gauze ABD dressing cloth tape for the upper extremity abduction pillow sling. Patient woken up from the general anesthetic transferred off the operating table taken to postanesthetic care unit in stable condition. All sponge needle instrument counts were correct no complications plan for the patient gentle pendulum exercises discharged home according to day surgery criteria and follow-up in the office next week. cpt 13614, 17143, 20348, 76884? Surgical Findings: As above Complications Complications: No Admit VTE Documentation VTE Present on Admission: No VTE Mechan Device Prophylaxis: SCD's VTE Pharm Prophylaxis ordered?: No Reason prophylaxis not ordered: Treatment Not Indicated
--- NOTE | 2024-08-21 10:38 | EX.PCM.DISCH ---
Discharge Instructions Diet Discharge Diet: No restrictions Activity Ice area for (Minutes): 10 Lifting Restrictions: no lifting, pendulums 4x/day Additional Activity Instructions:: ok for hand wrist elbow rom, ok to remove sling at rest. Dressing / Incision Call your doctor if your incision/area has: Continuous Slow Oozing, Sudden Increased Bleeding, Increased Pain/ Swelling, Increased Redness, Foul Smelling Discharge and Swelling at the incision site Call your doctor if you observe: Fever of 101 or Higher, Coldness, Increased Pain and Numbness or Tingling Change Dressing in: 2 days Cleanse incision/area with: Do not get Incision Wet Additional Dressing/Incision Instructions:: ok to change dressing as needed, keep incisions covered, leave tapes (steri strips) in place Follow Up Care Please Follow Up With: Macario Sandoval MD When: next week Test Results: Test results from this visit will be discussed in further detail at your follow-up appointment, if applicable. Discharge Plan Admission Attending Provider: Macario Sandoval Primary Care Provider: Olivia Gates Instructions Patient Instructions: After Shoulder Arthroscopy Print Language: Divehi Discharge Orders/Prescriptions Prescriptions: New oxycodone-acetaminophen [Percocet] 5-325 mg tablet 1 tab PO Q4H MDD 6 PRN (Reason: pain) 4 Days Qty: 30 0RF No Action paroxetine HCl [Paxil] 40 MG tablet 40 mg PO DAILY trazodone 50 MG tablet 50 mg PO QHS esomeprazole magnesium [Nexium] 40 MG capsule 40 mg PO BID lorazepam 1 MG tablet 2 mg PO BID cholecalciferol (vitamin D3) 50,000 UNIT capsule 50,000 units PO KEITA Patient Comments: takes q monday Rx Instructions: takes on monday hydrocodone-acetaminophen [[place]] 1 EACH tablet 1 ea PO TID PRN (Reason: Pain) Pulmicort Flexhaler 1 PUFF inhaler 2 puff inhalation BID Patient Comments: inhale 2 puffs twice daily losartan 50 MG tablet 50 mg PO DAILY montelukast 10 MG tablet 10 mg PO DAILY albuterol sulfate [Ventolin HFA] 90 mcg/actuation HFA aerosol inhaler 1 - 2 puff inhalation Q4H PRN PRN (Reason: Wheezing) Qty: 8.5 0RF azelastine 137 mcg (0.1 %) aerosol,spray 2 spray intranasal BID PRN (Reason: antihistamine) Rx Instructions: administer into each nostril albuterol sulfate 2.5 mg /3 mL (0.083 %) solution for nebulization 2.5 mg inhalation 4X/DAY PRN PRN (Reason: shortness of breath or wheezing) levothyroxine 88 mcg tablet 88 mcg PO DAILY Referrals / Follow Up: Olivia Gates DO [Primary Care Provider] - Macario Sandoval MD [Med Staff - Active Staff] - Disposition Disposition (needs filled in before D/C Order can be placed): Home, Self Care
--- NOTE | 2024-08-21 11:00 | PCM.POST.ANE ---
Anesthesia: Postop Eval I Current Vital Signs Temperature: 97.3 F Pulse Rate: 72 Blood Pressure: 112/96 Respiratory Rate: 14 Pulse Ox: 93 Oxygen Delivery Method: Simple Mask Assessment Airway patent: Yes Spontaneous unlabored respirations: Yes Mental status: Awake nausea: No Vomiting: No Anesthesia Complication: No Fluid Hydration Crystalloid volume administer (ml): 8,000 Total IV fluid infused: 8,000 Progress Note Anesthesia document: Postop Eval 1 completed: Yes
--- NOTE | 2024-08-21 11:43 | POSTOPAN2_ITS ---
Anesthesia Postop Eval I Sum Postop Eval Completion status Anesthesia document: Postop Eval 1 completed: Yes Anesthesia Postop Eval I Summary Anesthesia Postop Eval I Summary: Anesthesia Postop Eval I: Assessment Summary Airway patent Yes 08/21/24 11:00 DICE TABLE OPERATOR.HBARR Spontaneous unlabored Yes 08/21/24 11:00 DICE TABLE OPERATOR.HBARR respirations Mental status Awake 08/21/24 11:00 DICE TABLE OPERATOR.HBARR nausea No 08/21/24 11:00 DICE TABLE OPERATOR.HBARR Vomiting No 08/21/24 11:00 DICE TABLE OPERATOR.HBARR Anesthesia Postop Eval I: Fluid Summary Crystalloid volume administer 8,000 08/21/24 11:00 DICE TABLE OPERATOR.HBARR (ml) Colloids volume administered ( ml) Blood Product volume administered (ml) Total IV fluid infused 8,000 08/21/24 11:00 DICE TABLE OPERATOR.HBARR Anesthesia Postop Eval I: Summary Notes Anesthesia Complication No 08/21/24 11:00 DICE TABLE OPERATOR.HBARR Anesthesia Complication Comment: Post-operative progress note Anesthesia: Postop Eval II Evaluation Mental status: Awake Pain Level: 0 nausea: No Vomiting: No
--- NOTE | 2024-08-21 11:43 | PCM.POSTANE2 ---
Anesthesia Postop Eval I Sum Postop Eval Completion status Anesthesia document: Postop Eval 1 completed: Yes Anesthesia Postop Eval I Summary Anesthesia Postop Eval I Summary: Anesthesia Postop Eval I: Assessment Summary Airway patent Yes 08/21/24 11:00 TERMINATION CLERK.HBARR Spontaneous unlabored Yes 08/21/24 11:00 TERMINATION CLERK.HBARR respirations Mental status Awake 08/21/24 11:00 TERMINATION CLERK.HBARR nausea No 08/21/24 11:00 TERMINATION CLERK.HBARR Vomiting No 08/21/24 11:00 TERMINATION CLERK.HBARR Anesthesia Postop Eval I: Fluid Summary Crystalloid volume administer 8,000 08/21/24 11:00 TERMINATION CLERK.HBARR (ml) Colloids volume administered ( ml) Blood Product volume administered (ml) Total IV fluid infused 8,000 08/21/24 11:00 TERMINATION CLERK.HBARR Anesthesia Postop Eval I: Summary Notes Anesthesia Complication No 08/21/24 11:00 TERMINATION CLERK.HBARR Anesthesia Complication Comment: Post-operative progress note Anesthesia: Postop Eval II Evaluation Mental status: Awake Pain Level: 0 nausea: No Vomiting: No
--- NOTE | 2024-08-21 13:45 | SUR.PHASEI ---
SPO2 REMAINS 92-94% ON 2 L/MIN IN PACU. RR HAS BEEN ANYWHERE FROM 20-24 BPM. ENCOURAGING INCENTIVE SPIROMETRY, ONLY ABLE TO GET TO 500-700 ML. PATIENT REPEATEDLY DENIES ANY LUNG ISSUES AT HOME, DENIES ASTHMA OR COPD. DENIES PAIN TO THIS RN. 1350 DR CINTRON EVALUATES AT BEDSIDE, PATIENT ADMITS SHE HAS A ALBUTEROL NEBULIZER AND RESCUE INHALER AT HOME WHICH SHE USES PRN; ORDERED [facility] AEROSOL [place]. 1355 DR LLANOS UPDATED IN PERSON OF ABOVE INFO. 1435 PATIENT ASKING IF SHE IS GETTING ANOTHER BREATHING TREATMENT, THEY ALWAYS GIVE ME TWO WHEN I'M IN THE E.R.
[2024-08-21] MEDS: Ipratropium/Albuterol Sulfate 3 ML AMPUL.NEB INHALATION (14:23)
--- NOTE | 2024-08-21 16:10 | PCM.PN.HOSP ---
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 Sandoval secondary to persistent unrelenting right upper extremity pain along the lateral aspect of the arm radiating downward worse with any attempted lifting or reaching upward without patient conservative interventions including multiple injections, physical therapy and home-based exercises without improvement for planned right shoulder arthroscopy, subacromial decompression, debridement, distal clavicle excision with rotator cuff repair. Postoperatively patient in PACU with continued unresolved mild hypoxia requiring 2 L nasal cannula supplementation not on chronic oxygen therapy at home. Initially patient had denied any pulmonary history however following further evaluation it was noted that she had underlying pulmonary hypertension as well as asthma with chronic dyspnea complaints and allergic rhinitis. Also discussed that patient does have morbid obesity and certainly could be at risk for RAJNI. She upon evaluation was having a dry cough but notes this is only since her transition to the floor and she was not having any pulmonary issues prior to operative intervention. She denies any current dyspnea. Upon reevaluation during evaluation she was noted to be 93% on room air. She does have underlying sleep apnea that she does not use PAP therapy before and was diagnosed remotely. Patient currently notes some discomfort to the right shoulder especially as she has been more active, was up and using the restroom prior evaluation. Patient denies fevers, chills, nausea, emesis, abdominal pain, chest pain. Objective Data Objective Data Vital Signs: Vital Signs Temp Pulse Resp BP Pulse Ox O2 Del Method O2 Flow Rate 98.1 F 93 20 H 170/75 H 96 Nasal Cannula 2 08/21/24 15:48 08/21/24 15:48 08/21/24 15:48 08/21/24 15:48 08/21/24 15:48 08/21/24 15:48 08/21/24 15:48 Oxygen Flow Rate (L/min) 2 Oxygen Delivery Method Nasal Cannula Weight: 238 lb 1.588 oz Body Mass Index (BMI) 42.1 Lab / Micro Data 08/20/24 14:12 08/20/24 14:12 Labs: Laboratory Results - last 24 hr 08/20/24 14:12: WBC 12.4 H, RBC 4.76, Hgb 11.7 L, Hct 38.3, MCV 80.5 L, MCH 24.6 L, MCHC 30.5 L, RDW Std Deviation 48.8 H, RDW Coeff of Patrick 16.8 H, Plt Count 390, MPV 10.0, Sodium 139, Potassium 4.0, Chloride 103, Carbon Dioxide 23.9, Anion Gap 12, BUN 13, Creatinine 0.86, Est GFR (MDRD) Non-Af 73, BUN/Creatinine Ratio 14.8, Glucose 86, Calcium 8.9, TSH 2.620 Physical Exam Narrative Physical Examination: General: Awake, alert, oriented x 3 and cooperative, initially using the restroom but transition to the bedside chair, notes discomfort to the right shoulder but otherwise denies any acute complaint. During evaluation she does have an occasional dry cough but she notes this is just recently since transitioning to the floor and she had no pulmonary issues or URI type symptoms previous to her surgery. Skin: Normal color, normal turgor, no icterus, no cyanosis except for recent operative intervention right shoulder with dressing in place with no drainage. HEENT: AT/NC, EOMI, PERRLA, MMM, no discern carotid bruits, difficult to discern JVD given thickened neck. Lungs: Mildly diminished at the bases but decent air movement otherwise, mildly increased respiratory rate but no distress, occasional dry coughing during evaluation, no rales, ronchi or wheezing. Heart: Regular rate and rhythm; no gallop, rub audible. Abdomen: Soft, morbidly obese, NTTP, distant BS, no obvious distention or HSM however habitus makes evaluation difficult. Extremities: No cyanosis, no clubbing, no marked distal edema noted, status post recent right shoulder surgery with dressing in place with no drainage, sling in place also. Neurological: Patient awake, alert, oriented as noted, cognitive function intact; pupils equally reactive to light and accommodation, cranial nerves gross normal, moving all extremities except limited right upper extremity as expected given recent operative intervention on the shoulder, strength moderately globally decreased. Psychiatric: Affect appears mildly fatigued otherwise normal, no acute evidence of depressive or anxiety feelings but does have underlying history. 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 Sandoval secondary to persistent unrelenting right upper extremity pain along the lateral aspect of the arm radiating downward worse with any attempted lifting or reaching upward without patient conservative interventions including multiple injections, physical therapy and home-based exercises without improvement for planned right shoulder arthroscopy, subacromial decompression, debridement, distal clavicle excision with rotator cuff repair. #1. Unrelenting severe right upper extremity pain, right shoulder impingement syndrome, rotator cuff tear, AC joint arthrosis, osteoarthritis: Failed conservative therapies and treatments, admitted per Dr. Sandoval, 08/21/24 right shoulder arthroscopy, subacromial decompression, debridement, distal clavicle excision, rotator cuff repair, post-operative pain management, bowel regimen, DVT Prophylaxis, PT/OT/CM per Orthopedic surgery discretion. #2. Postoperative mild hypoxia, unresolving in PACU with underlying chronic asthma with allergic rhinitis complicated by underlying pulmonary hypertension and morbid obesity as well as possible underlying RAJNI: Will maintain on oxygen with wean as tolerated to room air, encourage aggressive I-S, hold home inhalers in the interim placed on ATC budesonide therapy, PRN albuterol, HOB, IS parameters. Continue home montelukast regimen. If patient is not able to readily wean to room air in a timely fashion then at that time low threshold to obtain chest x-ray to be cautious. #3. 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 Will need to follow-up with her primary care physician for PAP therapy assessment and outpatient sleep study formally. #4. Hypertension: Continue home regimen including losartan, PRN hydralazine. #5. Anxiety and depression: Will continue patient home paroxetine and lorazepam regimen in addition to low-dose nightly trazodone with hold parameters for sedation. #6. Hypothyroidism: Will continue patient home levothyroxine regimen. #7. Morbid Obesity: Weight loss and lifestyle changes encouraged. #8. GERD: Will continue patient on PPI. #9. DVT prophylaxis: SCDs, chemoprophylaxis per surgeon discretion given recent OR. Charges/Coding Visit Charges Inpatient E&M: 40818 [facility] L3
[2024-08-21] MEDS: Albuterol 2.5 MG/3 ML VIAL.NEB. INHALATION (16:47)
[2024-08-21] MEDS: HYDROcodone Bitartrate/Apap 5/325 Tablet PO (17:10)
--- NOTE | 2024-08-21 18:21 | NURSING ---
1630, unused meds sent to Rx
[2024-08-21] MEDS: Budesonide Respules 0.5 MG/2 ML AMPUL.NEB. INHALATION (19:43)
[2024-08-21] MEDS: LORazepam 1 MG Tablet 2 MG PO (21:29)
[2024-08-21] MEDS: traZODone 50 MG Tablet PO (21:29)
[2024-08-21] MEDS: Pantoprazole Sodium 40 MG Tablet PO (21:29)
[2024-08-22] MEDS: HYDROcodone Bitartrate/Apap 5/325 Tablet PO ×3 (00:01→13:43)
[2024-08-22 00:30] VITALS: BP 123/59; PULSE 70; RESP 16; TEMP 36.6; O2SAT 92
[2024-08-22 04:30] VITALS: BP 134/72; PULSE 72; RESP 16; TEMP 36.6; O2SAT 93
[2024-08-22] MEDS: Levothyroxine 88 MCG Tablet PO (05:27)
[2024-08-22 06:39] LABS: Absolute Lymphocyte Count 2.61 X10^3/uL (0.83-4.51); Absolute Neutrophil Count 12.6 X10^3/uL (2.0-7.7); Basophil# 0.01 X10^3/uL; Basophil% 0.1 % (0-1); Hematocrit 34.4 % (37-47); Hemoglobin 10.6 g/dL (12.0-15.0); Lymphocyte # 2.61 X10^3/ul (0.83-4.51); Mean Corp Hgb Conc 30.8 g/dL (32-36); Mean Corpuscular Hgb 24.9 pg (27.0-32.0); Mean Corpuscular Volume 80.8 fL (81-99); Mean Platelet Vol. 9.2 fl (6.2-12.0); Monocyte# 1.02 X10^3/uL; Monocyte% 6.3 % (0-10); NRBC Flagged by Analyzer 0 % (0-5); Neutrophil # 12.57 X10^3/uL (2.7-7.7); Neutrophil % 77.1 % (47-70); Platelet Count 343 K/mm3 (150-450); RBC Distribution Width CV 16.8 % (11.6-14.6); RBC Distribution Width SD 49.1 fl (35.1-43.9); Red Blood Count 4.26 M/mm3 (4.2-5.4); White Blood Count 16.3 K/mm3 (4.4-11.0)
[2024-08-22] MEDS: Budesonide Respules 0.5 MG/2 ML AMPUL.NEB. INHALATION (07:19)
[2024-08-22 07:21] VITALS: PULSE 58; RESP 18; O2SAT 92
[2024-08-22 07:22] LABS: ALB/GLOB Ratio 1.2 RATIO (0.9-2.4); AST(SGOT) 20 U/L (<=31); Alanine Aminotransfer ALT/SGPT 10 U/L (<=34); Albumin, Serum 3.4 g/dL (3.4-4.8); Alkaline Phosphatase 81 U/L (35-104); Anion Gap 10 (5-15); BUN 16 mg/dL (4-19); BUN/Creat Ratio 20.2 RATIO (10-20); Calcium,Total 8.7 mg/dL (7.6-11.0); Carbon Dioxide 24.5 mmol/L (21.0-32.0); Chloride 105 mmol/L (98-108); Creatinine, Serum 0.81 mg/dL (0.70-1.20); EST Glomerular Filtration Rate 78 (>60); Estimated Creatinine Clearance 110.19 ml/min (50-250); Globulin 2.8 g/dL (2.2-4.2); Glucose 149 mg/dL (70-99); Potassium 3.8 mmol/L (3.3-5.1); Protein, Total 6.3 g/dL (5.9-8.4); Sodium Level 139 mmol/L (133-145); Total Bilirubin < 0.15 mg/dL (0.00-1.30)
[2024-08-22] MEDS: Pantoprazole Sodium 40 MG Tablet PO (08:36)
[2024-08-22] MEDS: Losartan Potassium 50 MG Tablet PO (08:37)
[2024-08-22] MEDS: Paroxetine 20 MG Tablet 40 MG PO (08:37)
[2024-08-22] MEDS: Montelukast 10 MG Tablet PO (08:37)
[2024-08-22] MEDS: LORazepam 1 MG Tablet 2 MG PO (08:40)
[2024-08-22 09:09] VITALS: BP 146/57; PULSE 62; RESP 16; TEMP 36.9; O2SAT 94
--- NOTE | 2024-08-22 11:05 | PCM.DC.SUM ---
Providers Date of Admission: 08/21/24 Primary Care Physician: Dr. Olivia Gates, DO Consultations 08/21/24 15:06 Consult: Hospitalist Routine Consulting Provider: Leana Vaca Reason for Consult: Hypoxia post-op RT Shoulder Arthroscopy, Subacrom Decompress, etc... EMERGENT Consult: No MD Notified: Yes Date Notified: 08/21/24 Time Notified: 15:06 Method of Notification: Text Comments:: DR LLANOS TO CONTACT HOPSITALIST Reason For Visit: Right shoulder Arthroscopy, subacromial decompress Diagnosis Discharge Diagnosis (1) Right shoulder pain: Status: Acute Code(s): M25.511 - Pain in right shoulder Medications at Discharge Home Medications paroxetine HCl 40 mg tablet (Paxil) 40 mg PO DAILY depression 01/29/13 trazodone 50 mg tablet 50 mg PO QHS sleep 01/29/13 esomeprazole magnesium 40 mg capsule,delayed release (Nexium) 40 mg PO BID GERD 05/16/14 lorazepam 1 mg tablet 2 mg PO BID anxiety 10/11/16 cholecalciferol (vitamin D3) 1,250 mcg (50,000 unit) capsule 50,000 units PO KEITA Vit D deficiency 05/20/17 hydrocodone-acetaminophen 5-325mg 5mg-325mg ([place]) 1 ea PO TID PRN Pain 06/22/17 budesonide 180 mcg/actuation breath activated powder inhaler (Pulmicort Flexhaler) 2 puff inhalation BID SOB/wheezing 12/13/17 losartan 50 mg tablet 50 mg PO DAILY blood pressure 07/04/20 montelukast 10 mg tablet 10 mg PO DAILY allergies 07/04/20 albuterol sulfate 90 mcg/actuation aerosol inhaler (Ventolin HFA) 1 - 2 puff inhalation Q4H PRN PRN Wheezing #8.5 grams 04/13/21 azelastine 137 mcg (0.1 %) nasal spray 2 spray intranasal BID PRN antihistamine 12/22/21 albuterol sulfate 2.5 mg/3 mL (0.083 %) solution for nebulization 2.5 mg inhalation 4X/DAY PRN PRN shortness of breath or wheezing 08/16/24 levothyroxine 88 mcg tablet 88 mcg PO DAILY 08/16/24 oxycodone-acetaminophen 5 mg-325 mg tablet (Percocet) 1 tab PO Q4H PRN pain 4 days #30 tabs 08/21/24 Hospital Course Operations arthroscopy, shoulder Summary of Care Provided Minutes Spent on Discharge: 10 Physical Exam Const oriented x3 and no apparent distress Constitutional Narrative: sats stable on room air Weight / BMI Weight Weight: 238 lb 1.588 oz Body Mass Index (BMI) 0.0 ABG / Lab / Microbiology Data 08/22/24 06:24 08/22/24 06:24 Laboratory: Laboratory Results - last 24 hr 08/22/24 06:24: WBC 16.3 H, RBC 4.26, Hgb 10.6 L, Hct 34.4 L, MCV 80.8 L, MCH 24.9 L, MCHC 30.8 L, RDW Std Deviation 49.1 H, RDW Coeff of [place] 16.8 H, Plt Count 343, MPV 9.2, Immature Gran % (Auto) 0.500, Neut % (Auto) 77.1 H, Lymph % (Auto) 16.0 L, [place] % (Auto) 6.3, Eos % (Auto) 0.0, Baso % (Auto) 0.1, Absolute Neuts (auto) 12.6 H, Absolute Lymphs (auto) 2.61, Nucleated RBC % 0, Sodium 139, Potassium 3.8, Chloride 105, Carbon Dioxide 24.5, Anion Gap 10, BUN 16, Creatinine 0.81, Estim Creat Clear Calc 110.19, Est GFR (MDRD) Non-Af 78, BUN/Creatinine Ratio 20.2 H, Glucose 149 H, Calcium 8.7, Total Bilirubin < 0.15, AST 20, ALT 10, Alkaline Phosphatase 81, Total Protein 6.3, Albumin 3.4, Globulin 2.8, Albumin/Globulin Ratio 1.2 D/C Instructions Discharge Diet: No restrictions Ice area for (Minutes): 10 Additional Activity Instructions: ok for hand wrist elbow rom, ok to remove sling at rest. Call your doctor if your incision/area has: Continuous Slow Oozing, Sudden Increased Bleeding, Increased Pain/ Swelling, Increased Redness, Foul Smelling Discharge and Swelling at the incision site Call your doctor if you observe: Fever of 101 or Higher, Coldness, Increased Pain and Numbness or Tingling Cleanse incision/area with: Do not get Incision Wet Additional Dressing/Incision Instructions: ok to change dressing as needed, keep incisions covered, leave tapes (steri strips) in place DC O2, CPAP, BIPAP Needs Home O2 Discharge instructions: No Please Follow Up With: Macario Llanos MD When: next week Meaningful Use Info Meaningful Use Meaningful Use Diagnoses (Choose all that apply): None applicable Ischemic Stroke Statin Dosing Therapy Reference: STATIN DOSE THERAPY REFERENCE: * Patients > 75 years receive moderate or high dose statin therapy. * Patients 75 years or YOUNGER should receive HIGH intensity statin dose unless contraindicated. You will be required to document reason for non-treatment if statin daily dose does not meet guidelines. HIGH DOSE STATIN THERAPY DAILY Atorvastatin > than or = to 40 mg Rosuvastatin > than or = to 20 mg Amlodipine + Atorvastatin > than or = to 2.5/40 mg Ezetimibe + Simvastatin 10/80 mg Simvastatin 80mg Discharge Plan Admission Admit Date/Time: 08/21/24 15:46 Primary Reason for Your Visit: post op admit for low sats after shoulder arthroscopy Attending Provider: Macario Llanos Primary Care Provider: Olivia Gates Consulting Providers: Leana Vaca; Chaz Ortiz Instructions Patient Instructions: After Shoulder Arthroscopy Discharge Orders/Prescriptions Prescriptions: New oxycodone-acetaminophen [Percocet] 5-325 mg tablet 1 tab PO Q4H MDD 6 PRN (Reason: pain) 4 Days Qty: 30 0RF No Action paroxetine HCl [Paxil] 40 MG tablet 40 mg PO DAILY trazodone 50 MG tablet 50 mg PO QHS esomeprazole magnesium [Nexium] 40 MG capsule 40 mg PO BID lorazepam 1 MG tablet 2 mg PO BID cholecalciferol (vitamin D3) 50,000 UNIT capsule 50,000 units PO KEITA Patient Comments: takes q monday Rx Instructions: takes on monday hydrocodone-acetaminophen [[place]] 1 EACH tablet 1 ea PO TID PRN (Reason: Pain) Pulmicort Flexhaler 1 PUFF inhaler 2 puff inhalation BID Patient Comments: inhale 2 puffs twice daily losartan 50 MG tablet 50 mg PO DAILY montelukast 10 MG tablet 10 mg PO DAILY albuterol sulfate [Ventolin HFA] 90 mcg/actuation HFA aerosol inhaler 1 - 2 puff inhalation Q4H PRN PRN (Reason: Wheezing) Qty: 8.5 0RF azelastine 137 mcg (0.1 %) aerosol,spray 2 spray intranasal BID PRN (Reason: antihistamine) Rx Instructions: administer into each nostril albuterol sulfate 2.5 mg /3 mL (0.083 %) solution for nebulization 2.5 mg inhalation 4X/DAY PRN PRN (Reason: shortness of breath or wheezing) levothyroxine 88 mcg tablet 88 mcg PO DAILY Referrals / Follow Up: Olivia Gates DO [Primary Care Provider] - Macario Llanos MD [Med Staff - Active Staff] - Disposition Disposition (needs filled in before D/C Order can be placed): Home, Self Care
[2024-08-22 11:26] VITALS: BP 128/50; PULSE 65; RESP 16; TEMP 36.8; O2SAT 94
--- NOTE | 2024-08-22 12:20 | CASEMGMT ---
MARLY HUERTA Assessment Face to Face with patient for initial transition planning/care coordination assessment. MARLY HUERTA introduced self and role at [facility], pt voices understanding. Pt is A&Ox4 and is resting comfortably in bed and is calm. Care providers, pharmacy, and demographics verified. Admitting dx: rt Shoulder Arthroplasty LACE Strata: 1 PCP: Olivia Gates Specialists: Jaime (Ortho) Preferred Pharmacy: [facility] Insurance: [facility] DUAL, [place] Prescription Benefit: Yes LNOK: Chandler Oliva (Son), Allan Mitchell (GS), Eamon Oliva (Son) Living Arrangements: Pt lives with her son, Eamon, in a single story home with 2 steps to enter ADLs/IADLs: Pt states that she is independent Transportation: Self, son. Denies concerns DME: Rollator. Cane. Shower chair. Arm sling. Denies further needs HHC/SNF: Denies hx or needs Pt?s goal: Home Plan: Home with OP therapy. Per OT's note, the orthopedic Dr is recommending this. Rx signed by Dr. Mancilla. Pt states that she would like to attend short term for OP PT and OT. Pt states that she prefers to call and make her own appt. Pt also plans to follow up with Dr. Sandoval next week. Pt states that she has support at home through her sister (who will be staying with until Monday) and son. Pt denies further needs and feels safe with this DC plan. MS3 MARLY HUERTA updated. Sapna Bhatia RN, CM
--- NOTE | 2024-08-22 12:22 | CASEMGMT ---
MARLY HUERTA note: MARLY HUERTA to room. Pt sitting up in chair, eating lunch. Provided w/OP script for OT. Offered to fax to [facility] & schedule appt, but she declines, stating she will take care of it herself. Her son will be taking her home today. She denies having any discharge needs or concerns. Astrid OLIVEIRA RN CM
[2024-08-22 12:37] VITALS: O2SAT 93; O2SAT 94
== END 2024-08-22 13:54 | disposition home or self-care (01) | DRG 507 ==
LOC: SDC 08-22 07:18 → MS3 08-22 07:18
PROVIDERS: Anesthesiology; Family Medicine; Admitting Provider Orthopaedic Surgery Sports Medicine; PCP Family Medicine; Referring Provider Orthopaedic Surgery Sports Medicine; Visit Provider Orthopaedic Surgery Sports Medicine
PROC: 0RQJ4ZZ Repair Right Shoulder Joint, Percutaneous Endoscopic Approach (ICD-10-PCS; CPT 29805; principal; 2024-08-21 08:40)
DX: M19.011 Primary osteoarthritis, right shoulder (principal); Z68.41 Body mass index [BMI] 40.0-44.9, adult; I27.23 Pulmonary hypertension due to lung diseases and hypoxia; J45.909 Unspecified asthma, uncomplicated; E03.9 Hypothyroidism, unspecified; E66.01 Morbid (severe) obesity due to excess calories; E78.5 Hyperlipidemia, unspecified; F41.9 Anxiety disorder, unspecified; K21.9 Gastro-esophageal reflux disease without esophagitis; M75.41 Impingement syndrome of right shoulder; G47.33 Obstructive sleep apnea (adult) (pediatric); M77.9 Enthesopathy, unspecified; R09.02 Hypoxemia; Z79.51 Long term (current) use of inhaled steroids; Z79.891 Long term (current) use of opiate analgesic; G89.29 Other chronic pain; Z90.710 Acquired absence of both cervix and uterus; R73.01 Impaired fasting glucose
CPT/HCPCS: 36415; 80048; 80053; 83036; 84439; 84443; 84481; 85025; 85027; 93005; 94640; 94668; 94762; 97166; C1713; J2405

== ENCOUNTER 2024-12-28 11:08 | Emergency (ER) | payer MEDICARE, SELFPAY ==
[2024-12-28 11:08] VITALS: BP 155/128; PULSE 73; RESP 19; TEMP 36.8; O2SAT 98; BMI 45.4
--- NOTE | 2024-12-28 11:45 | RAD_ITS ---
PROCEDURE: SHOULDER MIN 2 VIEWS 12/28/2024 REASON FOR EXAM: PAIN TECHNIQUE: Procedure Code: RADSH Modality: DX Procedure: SHOULDER MIN 2 VIEWS Laterality: COMPARISON: None. FINDINGS: Bones: No acute bony abnormalities. Joints: Unremarkable. No dislocation. Soft tissues: No soft tissue abnormalities. RAD/Shoulder min 2 Views IMPRESSION: No acute osseous abnormalities. Reading Location: [id number]
--- OUTSIDE RECORDS SUMMARY | 2024-12-28 11:58 | XMS RPT_ITS | CCD ---
Author Organization [facility] Care Team Providers Care Manager Professional Development Name Role Phone Dr. Olivia Gates Primary Care Provider [phone] Nikolay Abdalla Emergency Provider Dr. Chaz Ortiz Admit Provider Dr. Chaz Ortiz Other Provider CLYDE Mendez Attending Provider Unavail able Dr. Lalo Abel Attending Provider Dr. Nikolay Simpson Attending Provider Dr. Nikolay Simpson Other Provider Dr. Olivia Gates Primary Care Provider [phone] Nikolay Gray Attending Provider Dr. Diego Weaver Referring Provider [phone] Dr. Olivia Gates Primary Care Provider Dr. Olivia Gates Other Provider Dr. Sj Oscar Attending Provider Dr. Gumaro Palencia Referring Provider Dr. Olivia Gates DO Primary Care Provider Nba OZUNA, Dr. Caballero Attending Provider Dr. Federico Arango MD Emergency Provider Dr. Olivia Gates DO Referring Provider [phone] Macario Llanos MD Attending Provider [phone] Macario Llanos MD Referring Provider Kody RICH, Dr. Baker Attending Provider Jaime OZUNA, Macario Other Provider Jaime OZUNA, Macario Admit Provider [phone] Lio OZUNA, Dr. Leana Arzola Other Provider Angel DO, Dr. Ware Other Provider Lio OZUNA, Dr. Leana Arzola Attending Provider Jason OZUNA, Dr. Herzog Attending Provider Kody DO, Dr. Baker Primary Care Provider Jaime OZUNA, Macario Attending Provider Kody DO, Dr. Baker Referring Provider Kody DO, Dr. Baker Primary Care Provider Macario Llanos MD Attending Provider [phone] Macario Llanos MD Referring Provider Kody RICH, Dr. Baker Primary Care Provider Kody RICH, Dr. Baker Referring Provider Macario Llanos MD Attending Provider Malys, Olivia Primary Care Unavailable Malys, Olivia Referring Unavailable Mollison, Macario Attending Unavailable Malys, Olivia Primary Care Unavailable Malys, Olivia Referring Unavailable Mollison, Macario Attending Unavailable Malys, Olivia Primary Care Unavailable Malys, Olivia Referring Unavailable Mollison, Macario Attending Unavailable Mollison, Macario Consulting Unavailable Mollison, Macario Referring Unavailable Malys, Olivia Primary Care Unavailable Mollison, Macario Attending Unavailable Malys, Olivia Primary Care Unavailable Malys, Olivia Referring Unavailable Mollison, Macario Attending Unavailable Malys, Olivia Referring Unavailable Malys, Olivia Primary Care Unavailable Mark Combs Attending Unavailable Mollison, Macario Attending Unavailable Malys, Olivia Primary Care Unavailable Malys, Olivia Referring Unavailable Mollison, Macario Referring Unavailable Malys, Olivia Primary Care Unavailable Mino Gomez Attending Unavailable Mollison, Macario Referring Unavailable Leana Vaca Attending Unavailable Leana Vaca Consulting Unavailable Malys, Olivia Primary Care Unavailable Juliánison, Macario Admitting Unavailable Mollison, Macario Consulting Unavailable Arango, Federico Attending Unavailable Malys, Olivia Primary Care Unavailable Macario Llanos Admitting Unavailable Jaime, Macario Referring Unavailable Leana Vaca L Consulting Unavailable Jaime, Macario Attending Unavailable Malys, Olivia Primary Care Unavailable Chaz Ortiz Consulting Unavailable Mollison, Macario Consulting Unavailable Malys, Olivia Primary Care Unavailable Malys, Olivia Referring Unavailable Malys, Olivia Attending Unavailable Malys, Olivia Primary Care Unavailable Malys, Olivia Attending Unavailable Augusto Kingston Attending Unavailable Malys, Olivia Primary Care Unavailable Malys, Olivia Primary Care Unavailable Malys, Olivia Referring Unavailable Malys, Olivia Attending Unavailable Jaime, Macario Admitting Unavailable Jaime, Macario Referring Unavailable Leana Vaca L Consulting Unavailable Malys, Olivia Primary Care Unavailable Jaime, Macario Attending Unavailable Angel, Chaz Consulting Unavailable Jaime, Macario Referring Unavailable Malys, Olivia Primary Care Unavailable Jaime, Macario Attending Unavailable Jaime, Macario Referring Unavailable Malys, Olivia Primary Care Unavailable Jaime, Macario Attending Unavailable Malys, Olivia Primary Care Unavailable Malys, Olivia Referring Unavailable Jaime, Macario Attending Unavailable Malys, Olivia Referring Unavailable Malys, Olivia Primary Care Unavailable Jaime, Macario Attending Unavailable Allergies Allergy Classification Reported Allergen(s) Allergy Type Date of Onset Reaction(s) Facility (13 sources) Lisinopril Drug Allergy 05-22-2021 Other [facility] Medications Current Medications Medication Drug Class(es) Dates Sig (Normalized) Sig (Original) albuterol 0.83 mg/ml inhalation solution (20 sources) beta2-Adrenergic Agonist Start: 08-16-2024 take 2.5 mg by inhalation four times daily as needed for wheezing Albuterol Sulfate 2.5 mg /3 mL (0.083 %) solution for nebulization Active 2.5 mg INHALATION 4 TIMES DAILY NEEDED as needed for shortness of breath or wheezing August 16, 2024 12:00am Start: 04-13-2021 take 1 puff(s) by in halation every four hours as needed Albuterol Sulfate (Ventolin Hfa) 90 mcg/actuation HFA aerosol inhaler Active 1 - 2 PUFF INHALATION EVERY 4 HOURS NEEDED 8.5 April 13, 2021 1:54am Start: 04-13-2021 Albuterol Sulf ate (Ventolin Hfa) 90 mcg/actuation HFA aerosol inhaler Active 1 - 2 NMA INHALATION EVERY 4 HOURS NEEDED as needed for Wheezing 8.5 0 April 13, 2021 1:00am Start: 04-13-2021 take 1 puff(s) by in halation every four hours as needed Albuterol Sulfate (Ventolin Hfa) 90 mcg/actuation HFA aerosol inhaler Active 1 - 2 PUFF INHALATION EVERY 4 HOURS NEEDED 8.5 April 13, 2021 1:00am Start: 05-23-2017 End: 05-30-2024 Albuterol Sulfate 1 INHALER inhaler Discontinued 1 - 2 NMA INHALATION EVERY 6 HOURS NEEDED as needed for Asthma 1 0 May 23, 2017 12:06pm May 30, 2024 2:27pm Start: 05-23-2017 End: 05-30-2024 Albuterol Sulfate 1 INHALER inhaler Discontinued 1 - 2 NMA INHALATION EVERY 6 HOURS NEEDED as needed for Asthma 1 May 23, 2017 12:06pm May 30, 2024 2:27pm Start: 05-23-2017 take 1 puff(s) by in halation every six hours as needed Albuterol Sulfate Active 1 - 2 PUFF INHALATION EVERY 6 HOURS NEEDED 1 May 23, 2017 11:06am Start: 05-23-2017 take 1 puff(s) by in halation every six hours as needed Albuterol Sulfate Active 1 - 2 PUFF INHALATION EVERY 6 HOURS NEEDED 1 May 23, 2017 12:06pm Start: 05-20-2017 End: 05-23-2017 Albuterol Sulfate (Ventolin Hfa (Sp)) 1 INHALER inhaler Discontinued 1 - 2 NMA INHALATION EVERY 6 HOURS NEEDED as needed for Asthma May 20, 2017 1:00am May 23, 2017 12:06pm Start: 05-20-2017 End: 05-23-2017 Albuterol Sulfate (Ventolin Hfa (Sp)) 1 INHALER inhaler Discontinued 1 - 2 PUFF INHALATION EVERY 6 HOURS NEEDED May 20, 2017 1:00am May 23, 2017 12:06pm azelastine hydrochloride 0.137 mg/actuat metered dose nasal spray (20 sources) Histamine-1 Receptor Antagonist Start: 04-13-2021 End: 12-22-2021 Azelastine 137 mcg (0.1 %) aerosol,spray Active 2 NMA INTRANASAL TWICE A DAY as needed for antihistamine December 22, 2021 6:34pm administer into each nostril Start: 04-13-2021 End: 12-22-2021 take 1 spray(s) nasal route twice daily Azelastine Active 2 SPRAY INTRANASAL TWICE A DAY December 22, 2021 6:34pm administer into each nostril benzonatate 200 mg oral capsule (20 sources) Non-narcotic Antitussive Start: 04-13-2021 take 200 mg by mouth three times daily Benzonatate Active 200 MG PO THREE TIMES A DAY April 13, 2021 1:53am Start: 05-23-2017 End: 05-28-2017 take 2 capsules by mouth three times daily Benzonatate 100 MG capsule Discontinued 200 mg PO THREE TIMES A DAY 0 May 23, 2017 1:00am May 28, 2017 10:17am Start: 05-23-2017 End: 05-28-2017 take 200 mg by mouth three times daily Benzonatate Discontinued 200 MG PO THREE TIMES A DAY May 23, 2017 1:00am May 28, 2017 10:17am Budesonide (20 sources) Corticosteroid Start: 12-13-2017 take 1 puff(s) by inhalation twice daily Budesonide (Pulmicort Flexhaler) 1 PUFF inhaler Active 2 PUFF INHALATION TWICE A DAY December 13, 2017 4:29pm Start: 12-13-2017 take 1 puff(s) by in halation twice daily Budesonide (Pulmicort Flexhaler) 1 PUFF inhaler Active 2 NMA INHALATION TWICE A DAY December 13, 2017 12:00am SOB/wheezing Start: 12-13-2017 take 1 puff(s) by in halation twice daily Budesonide (Pulmicort Flexhaler) 1 PUFF inhaler Active 2 NMA INHALATION TWICE A DAY December 13, 2017 12:00am Start: 12-13-2017 take 1 puff(s) by in halation twice daily Budesonide (Pulmicort Flexhaler) 1 PUFF inhaler Active 2 PUFF INHALATION TWICE A DAY December 12, 2017 11:00pm Start: 12-13-2017 take 1 puff(s) by in halation twice daily Budesonide (Pulmicort Flexhaler) 1 PUFF inhaler Active 2 PUFF INHALATION TWICE A DAY December 13, 2017 12:00am cholecalciferol 1.25 mg oral capsule (20 sources) Vitamin D Start: 05-20-2017 take 1 capsule by mouth once Cholecalciferol (Vitamin D3) 50,000 UNIT capsule Active 35004 U PO KEITA May 20, 2017 1:00am Vit D deficiency takes on monday Start: 05-20-2017 Cholecalcifero l (Vitamin D3) 50,000 UNIT capsule Active 97749 U PO KEITA May 20, 2017 1:00am takes on monday esomeprazole 40 mg delayed release oral capsule (20 sources) Proton Pump Inhibitor Start: 05-16-2014 take 1 capsule by mouth twice daily Esomeprazole Magnesium (Nexium) 40 MG capsule Active 40 mg PO TWICE A DAY May 16, 2014 1:00am GERD levothyroxine sodium 0.088 mg oral tablet (20 sources) l-Thyroxine Start: 08-16-2024 take 1 tablet by mouth once daily Levothyroxine 88 mcg tablet Active 88 ug PO DAILY August 16, 2024 12:00am Start: 12-13-2017 End: 08-16-2024 take 1 tablet by mouth once daily Levothyroxine 50 MCG tablet Discontinued 50 ug PO DAILY December 13, 2017 12:00am August 16, 2024 1:39pm thyroid LORazepam 1 mg oral tablet (20 sources) Benzodiazepine Start: 10-11-2016 take 2 tablets by mouth twice daily Lorazepam 1 MG tablet Active 2 mg PO TWICE A DAY October 11, 2016 2:56pm anxiety Start: 10-11-2016 take 2 mg by mouth twice daily Lorazepam Active 2 MG PO TWICE A DAY October 11, 2016 2:56pm Start: 05-07-2015 End: 10-11-2016 take 1 tablet by mouth three times daily Lorazepam 1 MG tablet Discontinued 1 mg PO THREE TIMES A DAY May 07, 2015 1:00am October 11, 2016 2:57pm losartan potassium 50 mg oral tablet (20 sources) Angiotensin 2 Receptor Rolando Start: 07-04-2020 take 1 tablet by mouth once daily Losartan 50 MG tablet Active 50 mg PO DAILY July 04, 2020 12:00am blood pressure montelukast 10 mg oral tablet (20 sources) Leukotriene Receptor Antagonist Start: 07-04-2020 take 1 tablet by mouth once daily Montelukast 10 MG tablet Active 10 mg PO DAILY July 04, 2020 12:00am allergies PARoxetine mesylate 40 mg oral tablet (20 sources) Serotonin Reuptake Inhibitor Start: 01-29-2013 take 1 tablet by mouth once daily Paroxetine Hcl (Paxil) 40 MG tablet Active 40 mg PO DAILY January 29, 2013 12:00am depression traZODone hydrochloride 50 mg oral tablet (20 sources) Serotonin Reuptake Inhibitor Start: 01-29-2013 take 1 tablet by mouth at bedtime Trazodone 50 MG tablet Active 50 mg PO AT BEDTIME January 29, 2013 12:00am sleep Start: 01-29-2013 take 2 tablets by mo ut at bedtime Trazodone 50 MG tablet Active 100 mg PO AT BEDTIME January 29, 2013 12:00am Start: 01-29-2013 take 100 mg by mouth at bedtim e Trazodone Active 100 MG PO AT BEDTIME January 29, 2013 12:00am Completed/Discontinued Medications Medication Drug Class(es) Dates Sig (Normalized) Sig (Original) acetaminophen 325 mg / HYDROcodone bitartrate 5 mg oral tablet (20 sources) Opioid Agonist Start: 12-03-2019 End: 12-06-2019 Hydrocodone-Acetami nophen 1 TABLET tablet Discontinued 1 {tbl} PO EVERY 6 HOURS NEEDED as needed for Pain 10 3 0 December 03, 2019 December 05, 2019 12:00am December 06, 2019 12:02am Malignant otitis externa Malignant otitis externa, unspecified ear Start: 12-03-2019 End: 12-06-2019 take 1 tablet by mouth every six hours as needed Hydrocodone-Acetaminophen Discontinued 1 TABLET PO EVERY 6 HOURS NEEDED 10 3 December 03, 2019 December 06, 2019 12:02am Start: 06-22-2017 End: 10-01-2024 Hydrocodone-Acetaminophen (N orco) 1 EACH tablet Discontinued 1 NMA PO THREE TIMES A DAY as needed for Pain June 22, 2017 12:00am October 01, 2024 11:07am Start: 01-29-2013 End: 09-20-2013 take 1 tablet by mouth every six hours as needed Hydrocodone-Acetaminophen Discontinued 1 TABLET PO EVERY 6 HOURS NEEDED January 29, 2013 3:56pm September 20, 2013 2:08pm Start: 01-29-2013 End: 09-20-2013 take 1 tablet by mouth every six hours as needed Hydrocodone-Acetaminophen Discontinued 1 TABLET PO EVERY 6 HOURS NEEDED January 28, 2013 11:00pm September 20, 2013 1:08pm Start: 01-29-2013 End: 09-20-2013 take 1 tablet by mouth every six hours as needed Hydrocodone-Acetaminophen Discontinued 1 TABLET PO EVERY 6 HOURS NEEDED January 29, 2013 12:00am September 20, 2013 2:08pm acetaminophen 325 mg / oxyCODONE hydrochloride 5 mg oral tablet (6 sources) Opioid Agonist Start: 08-21-2024 End: 10-01-2024 Oxycodone-Acetaminophen (Percocet) 5-325 mg tablet Discontinued 1 {tbl} PO Q4H as needed for pain 30 4 0 August 21, 2024 October 01, 2024 11:08am 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 of right shoulder Tear of right rotator cuff Right shoulder pain Primary osteoarthritis, right shoulder Pain in right shoulder atorvastatin 40 mg oral tablet (20 sources) HMG-CoA Reductase Inhibitor Start: 12-22-2021 End: 05-30-2024 take 1 tablet by mouth at bedtime Atorvastatin 40 mg Tablet Discontinued 40 mg PO AT BEDTIME December 22, 2021 12:00am May 30, 2024 2:26pm cholesterol cephalexin 500 mg oral capsule (18 sources) Cephalosporin Antibacterial Start: 06-10-2022 End: 01-05-2024 take 1 capsule by mouth every six hours Cephalexin 500 mg capsule Discontinued 500 mg PO EVERY 6 HOURS 20 0 June 10, 2022 1:00am January 05, 2024 7:20pm Hydrocodone-Aceta minophen 1 EACH tablet (8 sources) Start: 01-29-2013 End: 09-20-2013 Hydrocodone-Acetaminophen 1 EACH tablet Discontinued 1 {tbl} PO EVERY 6 HOURS NEEDED January 29, 2013 12:00am September 20, 2013 2:08pm meclizine hydrochloride 25 mg oral tablet (20 sources) Antiemetic Start: 06-10-2022 End: 01-05-2024 take 1 tablet by mouth four times daily as needed for dizziness Meclizine 25 mg tablet Discontinued 25 mg PO 4 TIMES DAILY NEEDED as needed for Dizziness 20 0 February 24, 2023 5:11pm Ghazala 27th, 2024 7:21pm pantoprazole 40 mg delayed release oral tablet (20 sources) Proton Pump Inhibitor Start: 12-22-2021 End: 01-05-2024 take 1 tablet by mouth once daily Pantoprazole 40 mg tablet,delayed release (DR/EC) Discontinued 40 mg PO DAILY December 22, 2021 12:00am January 05, 2024 7:21pm acid reflux predniSONE 10 mg oral tablet (3 sources) Start: 09-27-2024 End: 11-19-2024 Prednisone 10 mg tablets,dose pack Discontinued 0 PO per package directions 21 0 September 27, 2024 12:00am November 19, 2024 10:49am Arthrosis of right acromioclavicular joint Tear of right rotator cuff Primary osteoarthritis, right shoulder pain PO PER PKG DIR Problems Active Problems Problem Classification Problem Date Documented Date Episodic/Chronic Anxiety disorders (20 sources) Anxiety; Translations: [Anxiety disorder, unspecified] 12-31-2021 Chronic Comment on above: ON MED Asthma (20 sources) Exacerbation of asthma; Translations: [Unspecified asthma with (acute) exacerbation] 10-04-2018 Chronic Chronic obstructive pulmonary disease and bronchiectasis (20 sources) Bronchitis; Translations: [Bronchitis, not specified as acute or chronic] 12-31-2021 Episodic Conditions associated with dizziness or vertigo (20 sources) Dizziness; Translations: [Dizziness and giddiness] 05-30-2021 Episodic E Codes: Fall (8 sources) Falling injury; Translations: [Unspecified fall, initial encounter] 05-26-2024 Episodic Esophageal disorders (20 sources) Gastroesophageal reflux disease; Translations: [Gastro-esophageal reflux disease without esophagitis] 12-31-2021 Chronic Comment on above: CONTROLLED WITH MED Essential hypertension (20 sources) Hypertensive disorder; Translations: [Essential (primary) hypertension] Chronic Comment on above: CONTROLLED WITH MED Genitourinary symptoms and ill-defined conditions (1 source) Dysuria; Translations: [Dysuria] Onset: 10-24-2024 Episodic Malaise and fatigue (20 sources) Fatigue; Translations: [Other fatigue] 07-05-2020 Episodic Mood disorders (20 sources) Depressive disorder; Translations: [Depression] 12-31-2021 Chronic Comment on above: ON MED Open wounds of extremities (20 sources) Laceration of hand; Translations: [Laceration without foreign body of left hand, initial encounter] 12-31-2021 Episodic Osteoarthritis (20 sources) Arthritis of knee; Translations: [Unilateral primary osteoarthritis, right knee] Onset: 11-19-2024 05-06-2022 Chronic Other connective tissue disease (8 sources) Partial thickness rotator cuff tear; Translations: [Incomplete rotator cuff tear or rupture of right shoulder, not specified as traumatic] 05-26-2024 Episodic Other connective tissue disease (20 sources) Tear of right rotator cuff; Translations: [Unspecified rotator cuff tear or rupture of right shoulder, not specified as traumatic] 07-05-2024 Episodic Other connective tissue disease (2 sources) Unspecified rotator cuff tear or rupture of right shoulder, not specified as traumatic; Translations: [Unspecified rotator cuff tear or rupture of right shoulder, not specified as traumatic] Onset: 08-27-2024 Episodic Other ear and sense organ disorders (20 sources) Malignant otitis externa; Translations: [Malignant otitis externa, unspecified ear] 12-04-2019 Chronic Other ear and sense organ disorders (20 sources) Acute otitis externa; Translations: [Unspecified acute noninfective otitis externa, right ear] 12-03-2019 Episodic Other fractures (13 sources) Fracture of right rib; Translations: [Fracture of one rib, right side, initial encounter for closed fracture] 05-30-2024 Episodic Other injuries and conditions due to external causes (19 sources) Muscle strain; Translations: [Other injury of unspecified body region, initial encounter] 05-06-2022 Episodic Other lower respiratory disease (20 sources) Lower respiratory tract infection; Translations: [Unspecified acute lower respiratory infection] 10-04-2018 Episodic Other lower respiratory disease (20 sources) Chronic cough; Translations: [Chronic cough] 12-14-2017 Episodic Other lower respiratory disease (20 sources) Dyspnea; Translations: [Dyspnea, unspecified] 08-25-2017 Episodic Other lower respiratory disease (9 sources) Other forms of dyspnea; Translations: [Chronic dyspnea] 08-21-2023 Episodic Other lower respiratory disease (9 sources) Cough; Translations: [Cough] 08-21-2023 Episodic Other non-traumatic joint disorders (20 sources) Pain in right shoulder; Translations: [Acute pain of right shoulder due to trauma] Onset: 08-27-2024 05-26-2024 Episodic Other upper respiratory infections (20 sources) Viral upper respiratory tract infection; Translations: [Acute upper respiratory infection, unspecified] 04-21-2021 Episodic Otitis media and related conditions (20 sources) Acute transudative otitis media; Translations: [Other acute nonsuppurative otitis media, right ear] 10-04-2018 Episodic Pulmonary heart disease (20 sources) Pulmonary hypertension; Translations: [Pulmonary hypertension, unspecified] 12-31-2021 Chronic Comment on above: RVSP 30 mmHg Residual codes; unclassified (20 sources) Obstructive sleep apnea syndrome; Translations: [Obstructive sleep apnea (adult) (pediatric)] 12-31-2021 Chronic Comment on above: Noncompliant with PA P therapy. Residual codes; unclassified (7 sources) Influenza-like symptoms; Translations: [Other general symptoms and signs] 12-31-2021 Episodic Residual codes; unclassified (20 sources) History of hernia repair; Translations: [Other specified postprocedural states] 12-31-2021 Episodic Residual codes; unclassified (20 sources) H/O Spinal surgery; Translations: [Other specified postprocedural states] 12-31-2021 Episodic Comment on above: LUMBAR FUSION Residual codes; unclassified (15 sources) Viral syndrome; Translations: [Other general symptoms and signs] 12-31-2021 Episodic Spondylosis; intervertebral disc disorders; other back problems (20 sources) Chronic back pain ; Translations: [Dorsalgia, unspecified] 12-31-2021 Episodic Sprains and strains (20 sources) Strain of muscle of chest wall; Translations: [Strain of muscle and tendon of front wall of thorax, initial encounter] 12-10-2019 Episodic Thyroid disorders (20 sources) Hypothyroidism; Translations: [Hypothyroidism, unspecified] Onset: 08-26-2024 Chronic Comment on above: ON MED Unclassified (5 sources) S22.31XA - Fracture of one rib, right side, initial encounter for closed fracture,M25.511 - Pain in right shoulder Unclassified (4 sources) M25.511 - Pain in right shoulder,M75.101 - Unspecified rotator cuff tear or rupture of right shoulder, not specified as traumatic,M19.011 - Primary osteoarthritis, right shoulder Unclassified (2 sources) Right shoulder pain Unclassified (2 sources) Tear of right rotator cuff Unclassified (2 sources) Primary osteoarthritis of right shoulder Unclassified (2 sources) Arthrosis of right acromioclavicular joint Urinary tract infections (20 sources) Urinary tract infectious disease; Translations: [Urinary tract infection, site not specified] 10-03-2018 Episodic Past or Other Problems Problem Classification Problem Date Documented Da te Episodic/Chronic Nonspecific chest pain (20 sources) Atypical chest pain; Translations: [Other chest pain] Onset: 01-30-2024 Episodic Other fractures (1 source) Fracture of one rib, right side, initial encounter for closed fracture; Translations: [Fracture of one rib, right side, initial encounter for closed fracture] Onset: 05-30-2024 Episodic Results Test Name Value Interpretation Reference Range Facility Orthopedic Visit Reporton Orthopedic Visit Report [facility] [address] [place] [id number] OFFICE VISIT Date of Service: 11/19/24 MR#: [id number] Acct: [id number] Name: NENA KRISHNAN Rep #: [id number] : 1955 Provider: Dr. Macario silva MD Age/Sex: 69/F Location: [facility] Status: Signed Intake Vital Signs 10/28/24 11:19 Height 5 ft 3 in Weight: 245 lb BMI 43.4 Intake Visit Reasons: RIGHT SHOULDER Chief Complaint: right shoulder concerns Accompanied by: Self Is patient in pain?: Yes Pain scale (1-10): 10 Allergies No Known Allergies Allergy (Verified 11/19/24 10:49) Medications ???Medication ???Instructions ???Recorded ???Confirmed ???Type paroxetine HCl 40 mg tablet (Paxil) 40 mg PO DAILY depression 01/2911/19/24 History trazodone 50 mg tablet 50 mg PO QHS sleep 01/29/13 History esomeprazole magnesium 40 mg 40 mg PO BID GERD 05/16/14 5 History capsule,delayed release (Nexium) lorazepam 1 mg tablet 2 mg PO BID anxiety 10/11/1611/19 History cholecalciferol (vitamin D3) 1,250 50,000 units PO KEITA Vit D deficie ncy 05/20/17 11/19/24 History mcg (50,000 unit) capsule budesonide 180 mcg/actuation 2 puff inhalation BID SOB/wheezing 12/13/17 11/19/24 History breath activated powder inhaler (Pulmicort Flexhaler) losartan 50 mg tablet 50 mg PO DAILY blood pressure 06/0911/19/24 History montelukast 10 mg tablet 10 mg PO DAILY allergies 07/04/20 11/19/24 History albuterol sulfate 90 mcg/actuation 1 - 2 puff inhalation Q4H PRN MD N 04/13/21 11/19/24 Rx aerosol inhaler (Ventolin HFA) Wheezing #8.5 grams azelastine 137 mcg (0.1 %) nasal 2 spray intranasal BID PRN 2 11/19/24 History spray antihistamine albuterol sulfate 2.5 mg/3 mL 2.5 mg inhalation 4X/DAY PRN PRN 0 08/16/24 11/19/24 History (0.083 %) solution for nebulization shortness of breath or wheezing levothyroxine 88 mcg tablet 88 mcg PO DAILY 08/16/24 11/19/24 History Have you fallen in the past year?: No PFSH Medical History RAJNI (obstructive sleep apnea) Morbid obesity Allergic rhinitis Asthma Urinary incontinence Anxiety and depression Wears glasses Wears dentures Post-menopausal Ambulates with cane Arthritis History of hiatal hernia Non-smoker Persistent dry cough History of stress test History of echocardiogram Hx of fracture of wrist 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, right shoulder Right rotator cuff tear Pulmonary hypertension GERD (gastroesophageal reflux disease) Hypothyroidism HTN (hypertension) Chronic back pain Surgical History S/P rotator cuff repair History of esophagogastroduodenoscopy (EGD) Hx of colonoscopy History of back surgery History of cholecystectomy History of hysterectomy History of back surgery History of hernia repair Family History Father Cancer Mother Cancer Sister Cancer Brother Cancer Social History household members: children Smoking Status: Never smoker second hand exposure: No alcohol intake: never substance use type: does not use HPI RIGHT SHOULDER Details: This documentation accurately reflects the service provided and the decisions made by me, Dr. Macario Llanos MD 11/19/24 0807. Part of today???s visit was documented by [ ], acting as scribe. NENA KRISHNAN is a 69 year old F here today for 4 months FU Right shoulder arthroscopy, subacromial decompression, debridement, distal clavicle excision, rotator cuff repair. Still having quite a bit of pain and stiffness. Interested to consider RTSA at this point. There is popping and crepitus with even down little range of motion. Therapy seems to be making it worse. Coding Level of Care Code Off vis,est,level 3 Diagnoses Arthrosis of right acromioclavicular joint M19.011 Primary osteoarthritis, right shoulder M19.011 Right rotator cuff tear M75.101 Assessment and Plan Assessment and Plan (1) Arthrosis of right acromioclavicular joint: Status: Acute Plan: NENA KRISHNAN is a 69 year old F here today for 4 months FU Right shoulder arthroscopy, subacromial decompression, debridement, distal clavicle excision, rotator cuff repair. Still having quite a bit of pain and stiffness. Interested to consider RTSA at this point. I think the OA was still a reasonable option to try a lower risk surgery but at this point given the arthroscopic findings of grade 3 and 4 changes of the proximal humerus the next logical step here would be to consider reverse total shoulder arthroplasty. We have discussed the pr (more content not included)... Normal [facility] Orthopedic Visit Reporton Orthopedic Visit Report [facility] [address] [place] [address] OFFICE VISIT Date of Service: 10/28/24 MR#: [id number] Acct: [id number] Name: NENA KRISHNAN Rep #: [id number] : 1955 Provider: Dr. Macario silva MD Age/Sex: 69/F Location: [facility] Status: Signed Intake Vital Signs 09/03/24 10:11 10/28/24 11:19 Height 5 ft 3 in 5 ft 3 in Weight: 240 lb 245 lb BMI 42.5 43.4 Intake Visit Reasons: RIGHT SHOULDER Chief Complaint: right shoulder post op Accompanied by: Great grand daughter Is patient in pain?: Yes Pain scale (1-10): 3 Allergies No Known Allergies Allergy (Verified 10/28/24 11:22) Medications ???Medication ???Instructions ???Recorded ???Confirmed ???Type paroxetine HCl 40 mg tablet (Paxil) 40 mg PO DAILY depression 01/2910/28/24 History trazodone 50 mg tablet 50 mg PO QHS sleep 01/29/13 History esomeprazole magnesium 40 mg 40 mg PO BID GERD 05/16/14 5 History capsule,delayed release (Nexium) lorazepam 1 mg tablet 2 mg PO BID anxiety 10/11/1610/28 History cholecalciferol (vitamin D3) 1,250 50,000 units PO KEITA Vit D deficie ncy 05/20/17 10/28/24 History mcg (50,000 unit) capsule budesonide 180 mcg/actuation 2 puff inhalation BID SOB/wheezing 12/13/17 10/28/24 History breath activated powder inhaler (Pulmicort Flexhaler) losartan 50 mg tablet 50 mg PO DAILY blood pressure 06/0910/28/24 History montelukast 10 mg tablet 10 mg PO DAILY allergies 07/04/20 10/28/24 History albuterol sulfate 90 mcg/actuation 1 - 2 puff inhalation Q4H PRN MD N 04/13/21 10/28/24 Rx aerosol inhaler (Ventolin HFA) Wheezing #8.5 grams azelastine 137 mcg (0.1 %) nasal 2 spray intranasal BID PRN 2 10/28/24 History spray antihistamine albuterol sulfate 2.5 mg/3 mL 2.5 mg inhalation 4X/DAY PRN PRN 0 08/16/24 10/28/24 History (0.083 %) solution for nebulization shortness of breath or wheezing levothyroxine 88 mcg tablet 88 mcg PO DAILY 08/16/24 10/28/24 History prednisone 10 mg tablets in a dose See Rx Instructions PO PER PKG D IR 09/27/24 10/28/24 Rx pack pain #21 tabs Have you fallen in the past year?: No PFSH Medical History RAJNI (obstructive sleep apnea) Morbid obesity Allergic rhinitis Asthma Urinary incontinence Anxiety and depression Wears glasses Wears dentures Post-menopausal Ambulates with cane Arthritis History of hiatal hernia Non-smoker Persistent dry cough History of stress test History of echocardiogram Hx of fracture of wrist 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, right shoulder Right rotator cuff tear Pulmonary hypertension GERD (gastroesophageal reflux disease) Hypothyroidism HTN (hypertension) Chronic back pain Surgical History S/P rotator cuff repair History of esophagogastroduodenoscopy (EGD) Hx of colonoscopy History of back surgery History of cholecystectomy History of hysterectomy History of back surgery History of hernia repair Family History Father Cancer Mother Cancer Sister Cancer Brother Cancer Social History household members: children Smoking Status: Never smoker second hand exposure: No alcohol intake: never substance use type: does not use HPI RIGHT SHOULDER Details: This documentation accurately reflects the service provided and the decisions made by me, Dr. Macario Llanos MD 10/28/24 0830. Part of today???s visit was documented by [ ], acting as scribe. NENA KRISHNAN is a 69 year old F here today for 3 months FU Right shoulder arthroscopy, subacromial decompression, debridement, distal clavicle excision, rotator cuff repair. Patient was given a cortisone injection at the last visit about 6 weeks ago for some postop irritation possible tightness in the capsule. had a few days of relief from the injection but still painful. Has been working on some strengthening now just for about 2 weeks. Coding Level of Care Code Global Post Op Diagnoses Arthrosis of right acromioclavicular joint M19.011 Primary osteoarthritis, right shoulder M19.011 Right rotator cuff tear M75.101 Right shoulder pain M25.511 Assessment and Plan Assessment and Plan (1) Arthrosis of right acromioclavicular joint: Status: Acute Plan: NENA KRISHNAN is a 69 year old F here today for 3 months FU Right shoulder arthroscopy, subacromial decompression, debridement, distal clavicle excision, rotator cuff repair. Patient was given a cortisone injection at the last visi (more content not included)... Normal [facility] Orthopedic Visit Reporton Orthopedic Visit Report [facility] [address] [place] [address] OFFICE VISIT Date of Service: 10/01/24 MR#: [id number] Acct: [id number] Name: NENA KRISHNAN Rep #: [id number] : 1955 Provider: Dr. Macario silva MD Age/Sex: 69/F Location: [facility] Status: Signed with Addenda ADDENDUM by Angelica Maxwell on 10/01/24 at 1124 Office Procedure Documentation entered by Angelica Maxwell 10/01/24 11:24: Ortho Injections Injections Yes Subacromial Injection Right Is this a patient provided medication?: No Details: Obtained consent for injection. Under sterile conditions, injected the patients right subacromial with 2cc Kenalog 4cc Bupivacaine. The patient tolerated the injection well without any noted complication. Patient should call our office if redness develops, pain worsens or if they have any concerns. Office Meds Kenalog 40 mg/mL suspension for injection Performing Provider: Macario Llanos MD Performing Location: [facility] Administered by: Macario Llanos MD on 10/01/24 11:21 Dose Route Admin Location Dispensed Lot Number Expiration Date [facility] Man ufacturer 80 mg intra-articular right subacromial 2 mL [id number] 11/08/26 1210-0096-2 8 [facility] Date cc: * Signed Intake Vital Signs 09/03/24 10:11 Height 5 ft 3 in Weight: 240 lb BMI 42.5 Intake Visit Reasons: RIGHT SHOULDER Chief Complaint: right shoulder post op Accompanied by: Self Is patient in pain?: Yes Pain scale (1-10): 4 Allergies No Known Allergies Allergy (Verified 10/01/24 11:07) Medications ???Medication ???Instructions ???Recorded ???Confirmed ???Type paroxetine HCl 40 mg tablet (Paxil) 40 mg PO DAILY depression 01/2910/01/24 History trazodone 50 mg tablet 50 mg PO QHS sleep 01/29/13 History esomeprazole magnesium 40 mg 40 mg PO BID GERD 05/16/14 5 History capsule,delayed release (Nexium) lorazepam 1 mg tablet 2 mg PO BID anxiety 10/11/1610/01 History cholecalciferol (vitamin D3) 1,250 50,000 units PO KEITA Vit D deficie ncy 05/20/17 10/01/24 History mcg (50,000 unit) capsule budesonide 180 mcg/actuation 2 puff inhalation BID SOB/wheezing 12/13/17 10/01/24 History breath activated powder inhaler (Pulmicort Flexhaler) losartan 50 mg tablet 50 mg PO DAILY blood pressure 06/0910/01/24 History montelukast 10 mg tablet 10 mg PO DAILY allergies 07/04/20 10/01/24 History albuterol sulfate 90 mcg/actuation 1 - 2 puff inhalation Q4H PRN MD N 04/13/21 10/01/24 Rx aerosol inhaler (Ventolin HFA) Wheezing #8.5 grams azelastine 137 mcg (0.1 %) nasal 2 spray intranasal BID PRN 2 10/01/24 History spray antihistamine albuterol sulfate 2.5 mg/3 mL 2.5 mg inhalation 4X/DAY PRN PRN 0 08/16/24 10/01/24 History (0.083 %) solution for nebulization shortness of breath or wheezing levothyroxine 88 mcg tablet 88 mcg PO DAILY 08/16/24 10/01/24 History prednisone 10 mg tablets in a dose See Rx Instructions PO PER PKG D IR 09/27/24 10/01/24 Rx pack pain #21 tabs Have you fallen in the past year?: No PFSH Medical History RAJNI (obstructive sleep apnea) Morbid obesity Allergic rhinitis Asthma Urinary incontinence Anxiety and depression Wears glasses Wears dentures Post-menopausal Ambulates with cane Arthritis History of hiatal hernia Non-smoker Persistent dry cough History of stress test History of echocardiogram Hx of fracture of wrist 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, right shoulder Right rotator cuff tear Pulmonary hypertension GERD (gastroesophageal reflux disease) Hypothyroidism HTN (hypertension) Chronic back pain Surgical History S/P rotator cuff repair History of esophagogastroduodenoscopy (EGD) Hx of colonoscopy History of back surgery History of cholecystectomy History of hysterectomy History of back surgery History of hernia repair Family History Father Cancer Mother Cancer Sister Cancer Brother Cancer Social History household members: children Smoking Status: Never smoker second hand exposure: No alcohol intake: never substance use type: does not use HPI RIGHT SHOULDER Details: This documentation accurately reflects the service provided and the decisions made by me, Dr. Macario Llanos MD 10/01/24 0844. Part of today???s visit was documented by [ ], acting as scribe. NENA KRISHNAN is a 69 year old F here today for 6 weeks FU Right shoulder arthroscopy, keita (more content not included)... Normal [facility] Orthopedic Visit Reporton Orthopedic Visit Report [facility] [address] [place] [address] OFFICE VISIT Date of Service: 09/03/24 MR#: [id number] Acct: [id number] Name: NENA KRISHNAN Rep #: [id number] : 1955 Provider: Dr. Macario silva MD Age/Sex: 69/F Location: [facility] Status: Signed Intake Vital Signs 07/05/24 09:44 08/21/24 16:30 09/03/24 10:11 Height 5 ft 3 in 354 ft 3.97 in 5 ft 3 in Weight: 240 lb BMI 42.5 Intake Visit Reasons: right shoulder Chief Complaint: right shoulder 2 week post op Accompanied by: Self Is patient in pain?: Yes Pain scale (1-10): 4 Allergies No Known Allergies Allergy (Verified 09/03/24 10:14) Medications ???Medication ???Instructions ???Recorded ???Confirmed ???Type paroxetine HCl 40 mg tablet (Paxil) 40 mg PO DAILY depression 01/2909/03/24 History trazodone 50 mg tablet 50 mg PO QHS sleep 01/29/13 History esomeprazole magnesium 40 mg 40 mg PO BID GERD 05/16/14 5 History capsule,delayed release (Nexium) lorazepam 1 mg tablet 2 mg PO BID anxiety 10/11/1609/03 History cholecalciferol (vitamin D3) 1,250 50,000 units PO KEITA Vit D deficie ncy 05/20/17 09/03/24 History mcg (50,000 unit) capsule hydrocodone-acetaminophen 5-325mg 1 ea PO TID PRN Pain 06/22/17 History 5mg-325mg ([place]) budesonide 180 mcg/actuation 2 puff inhalation BID SOB/wheezing 12/13/17 09/03/24 History breath activated powder inhaler (Pulmicort Flexhaler) losartan 50 mg tablet 50 mg PO DAILY blood pressure 06/0909/03/24 History montelukast 10 mg tablet 10 mg PO DAILY allergies 07/04/20 09/03/24 History albuterol sulfate 90 mcg/actuation 1 - 2 puff inhalation Q4H PRN MD N 04/13/21 09/03/24 Rx aerosol inhaler (Ventolin HFA) Wheezing #8.5 grams azelastine 137 mcg (0.1 %) nasal 2 spray intranasal BID PRN 2 09/03/24 History spray antihistamine albuterol sulfate 2.5 mg/3 mL 2.5 mg inhalation 4X/DAY PRN PRN 0 08/16/24 09/03/24 History (0.083 %) solution for nebulization shortness of breath or wheezing levothyroxine 88 mcg tablet 88 mcg PO DAILY 08/16/24 09/03/24 History oxycodone-acetaminophen 5 mg-325 1 tab PO Q4H PRN pain 4 days #30 0 08/21/24 09/03/24 Rx mg tablet (Percocet) tabs Have you fallen in the past year?: No PFSH Medical History RAJNI (obstructive sleep apnea) Morbid obesity Allergic rhinitis Asthma Urinary incontinence Anxiety and depression Wears glasses Wears dentures Post-menopausal Ambulates with cane Arthritis History of hiatal hernia Non-smoker Persistent dry cough History of stress test History of echocardiogram Hx of fracture of wrist 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, right shoulder Right rotator cuff tear Pulmonary hypertension GERD (gastroesophageal reflux disease) Hypothyroidism HTN (hypertension) Chronic back pain Surgical History S/P rotator cuff repair History of esophagogastroduodenoscopy (EGD) Hx of colonoscopy History of back surgery History of cholecystectomy History of hysterectomy History of back surgery History of hernia repair Family History Father Cancer Mother Cancer Sister Cancer Brother Cancer Social History household members: children Smoking Status: Never smoker second hand exposure: No alcohol intake: never substance use type: does not use HPI right shoulder Details: This documentation accurately reflects the service provided and the decisions made by me, Dr. Macario Llanos MD 09/03/24 1011. Part of today???s visit was documented by [ ], acting as scribe. NENA KRISHNAN is a 69 year old F here today for 2 weeks FU Right shoulder arthroscopy, subacromial decompression, debridement, distal clavicle excision, rotator cuff repair. Patient doing well has discontinued the sling as of today started showering over top of the incisions plan to go to physical therapy in [place] [facility] Exam General General: Yes no acute distress Neurologic: Yes alert and Yes oriented x3 Psychologic: Yes reasonable and appropriate Right Shoulder Skin/Wound: Yes CDI, Yes healed, No ecchymosis, No erythema and No swelling SHOULDER: nvi including ax nerve. strong rad pulse. Coding Level of Care Code Global Post Op Diagnoses Arthrosis of right acromioclavicular joint M19.011 Primary osteoarthritis, right shoulder M19.011 Right rotator cuff tear M75.101 Right shoulder pain M25.511 Assessment and Plan Assessment (more content not included)... Normal [facility] Absolute lymphocyte countOrd ered By: Leana Lio on 08-22-2024 Lymphocytes Auto (Unsp spec) [#/Vol] 2.61 10*3/uL 0.83-4.51 [facility] Absolute neutrophil countOrd ered By: on 08-22-2024 Neutrophils (Bld) [#/Vol] 12.6 10*3/uL High 2.0-7.7 [facility] Anion gap in Serum or Plasma Ordered By: on 08-22-2024 Anion gap [Moles/Vol] 10 mmol/L 08-22 [facility] Automated lymphocyte count a s percentage of total leukocytesOrdered By: on 08-22-2024 Lymphocytes/100 WBC Auto (Unsp spec) 16.0 % Low 19-41 [facility] BUN/creatinine ratioOrdered By: Leana on 08-22-2024 Urea nitrogen/Creatinine [Mass ratio] 20.2 mg/mg High 10-20 [facility] Basophil percentageOrdered B y: on 08-22-2024 Basophils/100 WBC (Bld) 0.1 % 0-1 [facility] Bilirubin, totalOrdered By: on 08-22-2024 Bilirubin [Mass/Vol] mg/dL 0.00-1.30 [facility] CBC W/Diff, Automatedon 08-08 Absolute Lymph 2.61 X10 3/uL Normal 0.83-4.51 [facility] Comment on above: Performed By: #### L 100.0100, L500.4050 #### [facility] [address] [place], [address] Absolute Neut 12.6 X10 3/uL High 2.0-7.7 [facility] Comment on above: Performed By: #### L 100.0100, L500.4050 #### [facility] [address] [place], [address] Basophils/100 WBC (Bld) 0.1 % Normal 0-1 [facility] Comment on above: Performed By: #### L 100.0100, L500.4050 #### [facility] [address] [place], [address] Eosinophils/100 WBC (Bld) 0.0 % Normal 0-5 [facility] Comment on above: Performed By: #### L 100.0100, [id number] #### [facility] [address] [place], [address] Erythrocyte distribution width (RBC) [Ratio] 16.8 % High 11.6-14.6 [facility] Comment on above: Performed By: #### L 100.0100, L500.4050 #### [facility] [address] [place], [address] Hematocrit (Bld) [Volume fraction] 34.4 % Low 37-47 [facility] Comment on above: Performed By: #### L 100.0100, [id number] #### [facility] [address] [place], [address] Hemoglobin (Bld) [Mass/Vol] 10.6 g/dL Low 12.0-15.0 [facility] Comment on above: Performed By: #### L 100.0100, L500.4050 #### [facility] [address] [place], [address] IG% 0.500 Normal 0.0-0.9 [facility] Comment on above: Result Comment: IG% - Immature Granulocytes (promyelocytes, myelocytes and metamyelocytes) > 1% indicates that a LEFT SHIFT is Present. Performed By: #### L 100.0100, L500.4050 #### [facility] [address] [place], [address] Lymphocytes/100 WBC (Bld) 16.0 % Low 19-41 [facility] Comment on above: Performed By: #### L 100.0100, [id number] #### [facility] [address] [place], [address] MCH (RBC) [Entitic mass] 24.9 pg Low 27.0-32.0 [facility] Comment on above: Performed By: #### L 100.0100, [id number] #### [facility] [address] [place], [address] MCHC (RBC) [Mass/Vol] 30.8 g/dL Low 32-36 [facility] Comment on above: Performed By: #### L 100.0100, [id number] #### [facility] [address] [place], [address] MCV (RBC) [Entitic vol] 80.8 fL Low 81-99 [facility] Comment on above: Performed By: #### L 100.0100, [id number] #### [facility] [address] [place], [address] Monocytes/100 WBC (Bld) 6.3 % Normal 0-10 [facility] Comment on above: Performed By: #### L 100.0100, [id number] #### [facility] [address] [place], [address] Neutrophils/100 WBC (Bld) 77.1 % High 47-70 [facility] Comment on above: Performed By: #### L 100.0100, [id number] #### [facility] [address] [place], [address] Nucleated RBC (Bld) [#/Vol] 0 10*3/uL Normal 0-5 [facility] Comment on above: Performed By: #### L 100.0100, [id number] #### [facility] [address] [place], [address] Platelet mean volume (Bld) [Entitic vol] 9.2 fL Normal 6.2-12.0 [facility] Comment on above: Performed By: #### L 100.0100, [id number] #### [facility] [address] [place], [address] Platelets (Bld) [#/Vol] 343 10*3/uL Normal 150-450 [facility] Comment on above: Performed By: #### L 100.0100, [id number] #### [facility] [address] [place], [address] RBC (Bld) [#/Vol] 4.26 10*6/uL Normal 4.2-5.4 [facility] Comment on above: Performed By: #### L 100.0100, [id number] #### [facility] [address] [place], [address] RDW SD 49.1 fl High 35.1-43.9 [facility] Comment on above: Performed By: #### L 100.0100, [id number] #### [facility] [address] [place], [address] WBC (Bld) [#/Vol] 16.3 10*3/uL High 4.4-11.0 [facility] Comment on above: Performed By: #### L 100.0100, [id number] #### [facility] [address] [place], [address] Carbon dioxide, total [Moles /volume] in Central venous bloodOrdered By: Leana Vaca on 08-22-2024 CO2 [Moles/Vol] 24.5 mmol/L 21.0-32.0 [facility] Chloride assayOrdered By: Cheryl Vaca on 08-22-2024 Chloride [Moles/Vol] 105 mmol/L 98-108 [facility] Comprehensive Metabolic Prof ilon 08-22-2024 Albumin [Mass/Vol] 3.4 g/dL Normal 3.4-4.8 [facility] Comment on above: Performed By: #### L 100.0100, [id number] #### [facility] [address] [place], [address] Albumin/Globulin [Mass ratio] 1.2 {ratio} Normal 0.9-2.4 [facility] Comment on above: Performed By: #### L 100.0100, [id number] #### [facility] [address] [place], [address] ALK PHOS 81 U/L Normal 35-104 [facility] Comment on above: Performed By: #### L 100.0100, [id number] #### [facility] [address] [place], [address] ALT [Catalytic activity/Vol] 10 U/L Normal <=34 [facility] [facility] Comment on above: Performed By: #### L 100.0100, L500.4050 #### [facility] [address] [place], [address] AST [Catalytic activity/Vol] 20 U/L Normal <=31 [facility] Comment on above: Performed By: #### L 100.0100, L500.4050 #### [facility] [address] [place], [address] BUN/CRE 20.2 RATIO High 10-20 [facility] Comment on above: Performed By: #### L 100.0100, L500.4050 #### [facility] [address] [place], [address] Calcium [Mass/Vol] 8.7 mg/dL Normal 7.6-11.0 [facility] Comment on above: Performed By: #### L 100.0100, L500.4050 #### [facility] [address] [place], [address] Chloride [Moles/Vol] 105 mmol/L Normal 98-108 [facility] Comment on above: Performed By: #### L 100.0100, L500.4050 #### [facility] [address] [place], [address] CO2 [Moles/Vol] 24.5 mmol/L Normal 21.0-32.0 [facility] Comment on above: Performed By: #### L 100.0100, L500.4050 #### [facility] [address] [place], [address] Creatinine [Mass/Vol] 0.81 mg/dL Normal 0.70-1.20 [facility] Comment on above: Performed By: #### L 100.0100, L500.4050 #### [facility] [address] [place], [address] ECRCL 110.19 ml/min Normal 50-250 [facility] Comment on above: Performed By: #### L 100.0100, L500.4050 #### [facility] [address] [place], [address] GAP 10 Normal 5-15 [facility] Comment on above: Performed By: #### L 100.0100, L500.4050 #### [facility] [address] [place], [address] GFR/1.73 sq M.predicted among non-blacks MDRD (S/P/Bld) [Vol rate/Area] 78 mL/min/{1.73_m2} Normal >60 [facility] Comment on above: Result Comment: mL/m in/1.73m2 CKD-EPI Creatinine Equation (2020) Performed By: #### L 100.0100, L500.4050 #### [facility] [address] [place], [address] Globulin (S) [Mass/Vol] 2.8 g/dL Normal 2.2-4.2 [facility] Comment on above: Performed By: #### L 100.0100, L500.4050 #### [facility] [address] [place], [address] Glucose [Mass/Vol] 149 mg/dL High 70-99 [facility] Comment on above: Performed By: #### L 100.0100, L500.4050 #### [facility] [address] [place], [address] Potassium [Moles/Vol] 3.8 mmol/L Normal 3.3-5.1 [facility] Comment on above: Performed By: #### L 100.0100, L500.4050 #### [facility] [address] [place], [address] Sodium [Moles/Vol] 139 mmol/L Normal 133-145 [facility] Comment on above: Performed By: #### L 100.0100, L500.4050 #### [facility] [address] [place], [address] T BILI < 0.15 Normal 0.00-1.30 [facility] Comment on above: Performed By: #### L 100.0100, L500.4050 #### [facility] [address] [place], [address] T PROT 6.3 g/dL Normal 5.9-8.4 [facility] Comment on above: Performed By: #### L 100.0100, L500.4050 #### [facility] [address] [place], [address] Urea nitrogen [Mass/Vol] 16 mg/dL Normal 4-19 [facility] Comment on above: Performed By: #### L 100.0100, L500.4050 #### [facility] [address] [place], [address] Electrocardiogram reportOrde red By: Mino Gomez on 08-22-2024 EKG study [facility] Cardiovascular Services [address] [place] [address] 12 Lead EKG 08/20/24 1340 MR#: [id number] Acct: [id number] Name: NENA KRISHNAN Rep #:[id number] : 1955 69 From: Mino esparza MD Attending Dr: Dr. Macario Llanos MD Status: ADM IN Ordering Dr: Manolo Calvillo MD Date: Location: [facility] Sex: F C Admitted: 08/21/24 Test Reason : PREOP Blood Pressure : */* mmHG Vent. Rate : 63 BPM Atrial Rate : 63 BPM P-R Int : 144 ms QRS Dur : 82 ms QT Int : 442 ms P-R-T Axes : 31 30 54 degrees QTcB Int : 452 ms Normal sinus rhythm Normal ECG Confirmed by Mino Gomez ([id number]), science editor CHARU GURROLA ([id number]) on 08/22/2024 10:09:38 AM Referred By: Macario Llanos Confirmed By: Mino Gomez 08/22/24 1009 Date _ Mino Gomez MD CC: Dr. Olivia Gates DO; Dr. Macario Llanos MD; Dr. Manolo Calvillo MD ~ Signed [facility] Other Phone: Eosinophil percentageOrdered By: White on 08-22-2024 Eosinophils/100 WBC (Bld) 0.0 % 0-5 [facility] Erythrocyte distribution wid th ratioOrdered By: White on 08-22-2024 Erythrocyte distribution width (RBC) [Ratio] 16.8 % High 11.6-14.6 [facility] Erythrocyte distribution wid th standard deviationOrdered By: White on 08-22-2024 Erythrocyte distribution width (RBC) [Ratio] 49.1 fl High 35.1-43.9 [facility] Glomerular filtration rate ( GFR) estimation/1.73 sq m using serum, plasma, or whole bOrdered By: Leana Vaca on 08-22-2024 GFR/1.73 sq M.predicted among non-blacks MDRD (S/P/Bld) [Vol rate/Area] 78 mL/min/{1.73_m2} >60 [facility] Comment on above: mL/min/1.73m2 CKD-EP I Creatinine Equation (2020) Hematocrit Auto (Bld) [Volum e fraction]Ordered By: Leana Vaca on 08-22-2024 Hematocrit (Bld) [Volume fraction] 34.4 % Low 37-47 [facility] Hemoglobin measurementOrdere d By: Leana Vaca on 08-22-2024 Hemoglobin (Bld) [Mass/Vol] 10.6 g/dL Low 12.0-15.0 [facility] Immature granulocytes/100 WB C Auto (Bld)Ordered By: Leana Vaca 08-22-2024 Immature granulocytes/100 WBC (Bld) 0.500 % 0.0-0.9 [facility] Comment on above: IG% - Immature Granu locytes (promyelocytes, myelocytes and metamyelocytes) > 1% indicates that a LEFT SHIFT is Present. Laboratory - Chemistry and C hemistry - challengeOrdered By: Leana Vaca 08-22-2024 AST [Catalytic activity/Vol] 20 U/L <32 [facility] MCV (mean corpuscular volume ) determinationOrdered By: Leana Vaca 08-22-2024 MCV (RBC) [Entitic vol] 80.8 fL Low 81-99 [facility] Mean corpuscular hemoglobin (MCH) determinationOrdered By: Leana Vaca 08-22-2024 MCH (RBC) [Entitic mass] 24.9 pg Low 27.0-32.0 [facility] Mean corpuscular hemoglobin concentration (MCHC) determinationOrdered By: Leana Vaca 08-22-2024 MCHC (RBC) [Mass/Vol] 30.8 g/dL Low 32-36 [facility] Mean platelet volume determi nationOrdered By: Leana Vaca 08-22-2024 Platelet mean volume (Bld) [Entitic vol] 9.2 fL 6.2-12.0 [facility] Monocyte percentageOrdered B y: Leana Vaca on 08-22-2024 Monocytes/100 WBC (Bld) 6.3 % 0-10 [facility] Neutrophil percentageOrdered By: Leana Lio on 08-22-2024 Neutrophils/100 WBC (Bld) 77.1 % High 47-70 [facility] Nucleated red blood cell per centageOrdered By: Leana Lio on 08-22-2024 Nucleated RBC/100 WBC (Bld) [Ratio] 0 % 0-5 [facility] Platelet countOrdered By: Cheryl grace Lio on 08-22-2024 Platelets (Bld) [#/Vol] 343 10*3/uL 150-450 [facility] Potassium measurement (mass/ volume)Ordered By: Leana Vaca on 08-22-2024 Potassium (Unsp spec) [Mass/Vol] 3.8 mmol/L 3.3-5.1 [facility] RBC Auto (Bld) [#/Vol]Ordere d By: Leana Vaca on 08-22-2024 RBC (Bld) [#/Vol] 4.26 10*6/uL 4.2-5.4 [facility] Serum creatinine measurement (mass/volume)Ordered By: Leana Vaca on 08-22-2024 Creatinine [Mass/Vol] 0.81 mg/dL 0.70-1.20 [facility] Serum globulin measurementOr dered By: Leana Vaca on 08-22-2024 Globulin (S) [Mass/Vol] 2.8 g/dL 2.2-4.2 [facility] Serum glucose measurement (m ass/volume)Ordered By: Leana Vaca on 08-22-2024 Glucose [Mass/Vol] 149 mg/dL High 70-99 [facility] Serum or plasma alanine mccartney otransferase (ALT) measurementOrdered By: Leana Vaca 08-22-2024 ALT [Catalytic activity/Vol] 10 U/L <35 [facility] Serum or plasma albumin swati urement (mass/volume)Ordered By: Leana Vaca on 08-22-2024 Albumin [Mass/Vol] 3.4 g/dL 3.4-4.8 [facility] Serum or plasma albumin/glob ulin mass ratioOrdered By: Leana Vaca on 08-22-2024 Albumin/Globulin [Mass ratio] 1.2 {ratio} 0.9-2.4 [facility] Serum or plasma alkaline leonie sphatase measurementOrdered By: Leana Lio on 08-22-2024 ALP [Catalytic activity/Vol] 81 U/L 35-104 [facility] Serum or plasma calcium swati urement (mass/volume)Ordered By: [facility] on 08-22-2024 Calcium [Mass/Vol] 8.7 mg/dL 7.6-11.0 [facility] Serum or plasma urea nitroge n measurement (mass/volume)Ordered By: Leana Vaca on 08-22-2024 Urea nitrogen [Mass/Vol] 16 mg/dL 4-19 [facility] Sodium levelOrdered By: Fabiolau mn Lio on 08-22-2024 Sodium [Moles/Vol] 139 mmol/L 133-145 [facility] Total proteinOrdered By: Fabiola umn Lio on 08-22-2024 Protein [Mass/Vol] 6.3 g/dL 5.9-8.4 [facility] White blood cell (WBC) count Ordered By: Leana Lio on 08-22-2024 WBC (Bld) [#/Vol] 16.3 10*3/uL High 4.4-11.0 [facility] Discharge Instructionon 08-08 Discharge Instruction [facility] Medical Records Department [address] [place] [address] Instructions for Home/Discharge Instructions 08/21/24 1038 MR#: [id number] Acct: [id number] Name: NENA KRISHNAN Rep #: [id number] : 1955 69 From: Macario Llanos MD PCP: Dr. Olivia Gates, DO Status:REG [facility] Discharge Instructions Diet Discharge Diet: No restrictions Activity Ice area for (Minutes): 10 Lifting Restrictions: no lifting, pendulums 4x/day Additional Activity Instructions:: ok for hand wrist elbow rom, ok to remove sling at rest. Dressing / Incision Call your doctor if your incision/area has: Continuous Slow Oozing, Sudden Increased Bleeding, Increased Pain/ Swelling, Increased Redness, Foul Smelling Discharge and Swelling at the incision site Call your doctor if you observe: Fever of 101 or Higher, Coldness, Increased Pain and Numbness or Tingling Change Dressing in: 2 days Cleanse incision/area with: Do not get Incision Wet Additional Dressing/Incision Instructions:: ok to change dressing as needed, keep incisions covered, leave tapes (steri strips) in place Follow Up Care Please Follow Up With: Macario Llanos MD When: next week Test Results: Test results from this visit will be discussed in further detail at your follow-up appointment, if applicable. Discharge Plan Admission Attending Provider: Macario Llanos Primary Care Provider: Olivia Gates Instructions Patient Instructions: After Shoulder Arthroscopy Print Language: New Zealander Discharge Orders/Prescriptions Prescriptions: New oxycodone-acetaminophen [Percocet] 5-325 mg tablet 1 tab PO Q4H MDD 6 PRN (Reason: pain) 4 Days Qty: 30 0RF No Action paroxetine HCl [Paxil] 40 MG tablet 40 mg PO DAILY trazodone 50 MG tablet 50 mg PO QHS esomeprazole magnesium [Nexium] 40 MG capsule 40 mg PO BID lorazepam 1 MG tablet 2 mg PO BID cholecalciferol (vitamin D3) 50,000 UNIT capsule 50,000 units PO KEITA Patient Comments: takes q monday Rx Instructions: takes on monday hydrocodone-acetaminophen [[place]] 1 EACH tablet 1 ea PO TID PRN (Reason: Pain) Pulmicort Flexhaler 1 PUFF inhaler 2 puff inhalation BID Patient Comments: inhale 2 puffs twice daily losartan 50 MG tablet 50 mg PO DAILY montelukast 10 MG tablet 10 mg PO DAILY albuterol sulfate [Ventolin HFA] 90 mcg/actuation HFA aerosol inhaler 1 - 2 puff inhalation Q4H PRN PRN (Reason: Wheezing) Qty: 8.5 0RF azelastine 137 mcg (0.1 %) aerosol,spray 2 spray intranasal BID PRN (Reason: antihistamine) Rx Instructions: administer into each nostril albuterol sulfate 2.5 mg /3 mL (0.083 %) solution for nebulization 2.5 mg inhalation 4X/DAY PRN PRN (Reason: shortness of breath or wheezing) levothyroxine 88 mcg tablet 88 mcg PO DAILY Referrals / Follow Up: Olivia Gates DO [Primary Care Provider] - Macario Llanos MD [Med Staff - Active Staff] - Disposition Disposition (needs filled in before D/C Order can be placed): Home, Self Care 08/21/24 1040 Macario Llanos MD CC: Dr. Olivia Gates, DO Signed [facility] MR/POSTOP.ANEon 08-21-2024 MR/POSTOP.ANE [facility] Medical Records Department [address] [place] [address] Anesthesia Postop Eval I 08/21/24 1100 MR#: [id number] Acct: [id number] Name: ARIELLANENA S Rep #: [id number] : 1955 69 From: Priscila Morales CRNA PCP: Dr. Olivia Gates, DO Status:REG SDC Y Race: C Location: [place] [address] Anesthesia: Postop Eval I Current Vital Signs Temperature: 97.3 F Pulse Rate: 72 Blood Pressure: 112/96 Respiratory Rate: 14 Pulse Ox: 93 Oxygen Delivery Method: Simple Mask Assessment Airway patent: Yes Spontaneous unlabored respirations: Yes Mental status: Awake nausea: No Vomiting: No Anesthesia Complication: No Fluid Hydration Crystalloid volume administer (ml): 8,000 Total IV fluid infused: 8,000 Progress Note Anesthesia document: Postop Eval 1 completed: Yes 08/21/24 1100 Date Priscila Morales INSTRUCTIONAL TECHNOLOGY COORDINATOR Cosigner Signature: Date CC: Signed [facility] MR/[id number] 08-21-2024 MR/POSTOPAN2 [facility] Medical Records Department [address] [place] [address] Anesthesia Postop Eval II 08/21/24 1143 MR#: [id number] Acct: [id number] Name: ARIELLANENA S Rep #: [id number] : 1955 69 From: Troy Wilkins MD PCP: Dr. Olivia Gates, DO Status:REG SDC Y Race: C Location: [place] [address] Anesthesia Postop Eval I Sum Postop Eval Completion status Anesthesia document: Postop Eval 1 completed: Yes Anesthesia Postop Eval I Summary Anesthesia Postop Eval I Summary: Anesthesia Postop Eval I: Assessment Summary Airway patent Yes 08/21/24 11:00 INSTRUCTIONAL TECHNOLOGY COORDINATOR.HBARR Spontaneous unlabored Yes 08/21/24 11:00 INSTRUCTIONAL TECHNOLOGY COORDINATOR.HBARR respirations Mental status Awake 08/21/24 11:00 INSTRUCTIONAL TECHNOLOGY COORDINATOR.HBARR nausea No 08/21/24 11:00 INSTRUCTIONAL TECHNOLOGY COORDINATOR.HBARR Vomiting No 08/21/24 11:00 INSTRUCTIONAL TECHNOLOGY COORDINATOR.HBARR Anesthesia Postop Eval I: Fluid Summary Crystalloid volume administer 8,000 08/21/24 11:00 INSTRUCTIONAL TECHNOLOGY COORDINATOR.HBARR (ml) Colloids volume administered ( ml) Blood Product volume administered (ml) Total IV fluid infused 8,000 08/21/24 11:00 INSTRUCTIONAL TECHNOLOGY COORDINATOR.HBARR Anesthesia Postop Eval I: Summary Notes Anesthesia Complication No 08/21/24 11:00 INSTRUCTIONAL TECHNOLOGY COORDINATOR.HBARR Anesthesia Complication Comment: Post-operative progress note Anesthesia: Postop Eval II Evaluation Mental status: Awake Pain Level: 0 nausea: No Vomiting: No 08/21/24 1143 Date Troy Wilkins MD Cosigner Signature: Date CC: Signed Normal [facility] Operative Reporton 5 Operative Report [facility] Medical Records Department [address] [place] [address] Operative Report 08/21/24 1028 MR#: [id number] Acct: [id number] Name: NENA KRISHNAN Rep #: [id number] : 1955 69 From: Macario Llanos MD PCP: Dr. Olivia Gates, DO Status:REG [facility] Location: [address] Problems Associated Problem List Diagnoses (1) Arthrosis of right acromioclavicular joint: (2) Primary osteoarthritis, right shoulder: (3) Right rotator cuff tear: (4) Right shoulder pain: Procedures Musculoskeletal 20xxx-29xxx: Other Procedure See Report Operative Report (Standard) Operative Information Date of Procedure: 08/21/24 Pre-Operative Diagnosis: Right shoulder impingement syndrome, rotator cuff tear, AC joint arthrosis, osteoarthritis Post-Operative Diagnosis: Same Surgery/Procedure Performed: Right shoulder arthroscopy, subacromial decompression, debridement, distal clavicle excision, rotator cuff repair drainage design coordinator: Yes Pet Care Assistant: graham Tasks completed by assistant housekeeping manager: Retracting Additional office clerk assistant?: No Type of Anesthesia: Block,Regional and General RN Documented Start/Stop Times: Operation Date: 08/21/24 09:00 Case Time Into Pre-Op 08/21/24 07:04 Anesthesia Start 08/21/24 09:20 Into Room 08/21/24 09:20 Procedure Start 08/21/24 09:45 Procedure Start Time: 09:45 Procedure Stop Time: 10:31 Select all DRAINS/GRAFTS/IMPLANTS that apply: Implanted device Implanted device details: Arthrex trans tendon knotless fiber tack RC anchors x2 and 4.75 mm swivel lock bio composite Estimated Blood Loss: 25 Specimen collected: No Description of surgery: Patient brought to the operating room theater. Placed supine on the table. 2 g IV Ancef administered prior to the start of the case. General anesthesia induced. Patient transferred right side up lateral decubitus beanbag positioner. Axillary roll used. All bony prominences padded. SCDs on the legs. Upper extremity prepped and draped in the usual sterile fashion with chlorhexidine-based prep solution allowing over 3 minutes drying time prior to draping. 10 pounds of inline traction with the arm in 45 degrees of abduction was used. Preoperative timeout performed to confirm the site patient and the surgery. Began by inserting the arthroscope into the intra-articular portion of the shoulder through a standard posterior arthroscopy portal. Did a full diagnostic arthroscopy. Cartilage on the glenoid had up to grade 3 and 4 changes thick unstable cartilage flap I did a debridement of that at the 4 o'clock position. The labrum had extensive fraying did a debridement of the most of the anterior labrum as well as posterior labrum and the rotator interval. Upper border subscapularis - Normal. Long head of the biceps was intact thin no fraying or instability. Did an extensive debridement intra-articularly. There is also loose cartilage bodies which I removed. I did this through a standard inside-out spinal needle localized portal through the rotator interval. I then identified the undersurface of rotator cuff tendon at the supraspinatus there is some fraying at the attachment no full-thickness obvious tears but I marked the area of high-grade fraying from the undersurface. Next I inserted the arthroscope into the subacromial space identified the spinal needle location of the tearing of the supraspinatus tendon at the split tear area on the MRI. Next I performed a subacromial decompression through a lateral portal. Did this for 4 mm using a high-speed bur. Identified the distal clavicle. I did a distal clavicle excision down to flat margins through the anterior portal to flat margins. Hemostasis achieved throughout the case. I identified the tearing area. There is 1 area of high-grade near complete tearing but with mostly good fibers the remaining throughout the supraspinatus tendon so I elected to do a trans tendon repair. I inserted 2 knotless Arthrex fiber tack RC anchors 2.4 mm at the anterior leading edge of the tendon as well as at the supraspinatus infraspinatus junction. I then used the repair stitches in a crisscrossing fashion to create a horizontal mattress configuration with 2 sutures converting these through the knotless mechanism and securing this down tight with good compression of the footprint. I also used a power pick instrument to perform multiple trephination's of the greater tuberosity to stimulate healing. I then took the repair stitches the 2 free ends and then inserted these into the Arthrex 4.75 mm bio composite swivel lock anchor just laterally to create a triangular configuration of repair. I cut the suture short this achieved good compression of the footprint of the tear area. Arthroscopy pictures taken and saved throughout the case. Case terminated. Arthroscope withdrawn. Wounds thoroughly irrigated cleaned with wet and dry s (more content not included)... Normal [facility] 12 Lead EKGon 08-20-2024 12 Lead EKG [facility] Cardiovascular Services [address] [place] [address] 12 Lead EKG 08/20/24 1340 MR#: [id number] Acct: [id number] Name: NENA KRISHNAN Rep #: [id number] : 1955 69 From: Mino Gomez MD Attending Dr: Dr. Macario Llanos MD Status: AD M IN Ordering Dr: Manolo Calvillo MD Date: 08/20/24 Location: [facility] Sex: F C Admitted: 08/21/24 Test Reason : PREOP Blood Pressure : */* mmHG Vent. Rate : 63 BPM Atrial Rate : 63 BPM P-R Int : 144 ms QRS Dur : 82 ms QT Int : 442 ms P-R-T Axes : 31 30 54 degrees QTcB Int : 452 ms Normal sinus rhythm Normal ECG Confirmed by Mino Gomez ([id number]), science editor CHARU GURROLA ([id number]) on 08/22/2024 10:09:38 AM Referred By: Macario Llanos Confirmed By: Mino Gomez 08/22/24 1009 Date Mino Gomez MD CC: Dr. Olivia Gates DO; Dr. Macario Llanos MD; Dr. Manolo Calvillo MD Signed Normal [facility] Absolute lymphocyte countOrd ered By: Olivia Gates on 08-20-2024 Lymphocytes Auto (Unsp spec) [#/Vol] 3.62 10*3/uL 0.83-4.51 [facility] Absolute neutrophil countOrd ered By: Olivia Gates on 08-20-2024 Neutrophils (Bld) [#/Vol] 7.2 10*3/uL 2.0-7.7 [facility] Anion gap in Serum or Plasma Ordered By: Olivia Gates on 08-20-2024 Anion gap [Moles/Vol] 12 mmol/L 08-22 [facility] Automated lymphocyte count a s percentage of total leukocytesOrdered By: Olivia Gates on 08-20-2024 Lymphocytes/100 WBC Auto (Unsp spec) 30.3 % 19-41 [facility] BUN/creatinine ratioOrdered By: Olivia Gates on 08-20-2024 Urea nitrogen/Creatinine [Mass ratio] 14.9 mg/mg 10-20 [facility] Basic Metabolic Profile (BMP )on 08-20-2024 BUN/CRE 14.8 RATIO Normal - [facility] [facility] Comment on above: Performed By: #### L 500.2500, L501.9520, L100.0500 #### [facility] Laboratory [address] [place], [address] Calcium [Mass/Vol] 8.9 mg/dL Normal 7.6-11.0 [facility] Comment on above: Performed By: #### L 500.2500, L501.9520, L100.0500 #### [facility] [address] [place], [address] Chloride [Moles/Vol] 103 mmol/L Normal 98-108 [facility] Comment on above: Performed By: #### L 500.2500, L501.9520, L100.0500 #### [facility] [address] [place], [address] CO2 [Moles/Vol] 23.9 mmol/L Normal 21.0-32.0 [facility] Comment on above: Performed By: #### L 500.2500, L501.9520, L100.0500 #### [facility] [address] [place], [address] Creatinine [Mass/Vol] 0.86 mg/dL Normal 0.70-1.20 [facility] Comment on above: Performed By: #### L 500.2500, L501.9520, L100.0500 #### [facility] [address] [place], [address] GAP 12 Normal 5-15 [facility] Comment on above: Performed By: #### L 500.2500, L501.9520, L100.0500 #### [facility] [address] [place], [address] GFR/1.73 sq M.predicted among non-blacks MDRD (S/P/Bld) [Vol rate/Area] 73 mL/min/{1.73_m2} Normal >60 [facility] Comment on above: Result Comment: mL/m in/1.73m2 CKD-EPI Creatinine Equation (2020) Performed By: #### L 500.2500, L501.9520, L100.0500 #### [facility] [address] [place], [address] Glucose [Mass/Vol] 86 mg/dL Normal 70-99 [facility] Comment on above: Performed By: #### L 500.2500, L501.9520, L100.0500 #### [facility] [address] [place], [address] Potassium [Moles/Vol] 4.0 mmol/L Normal 3.3-5.1 [facility] Comment on above: Performed By: #### L 500.2500, L501.9520, L100.0500 #### [facility] [address] [place], [address] Sodium [Moles/Vol] 139 mmol/L Normal 133-145 [facility] Comment on above: Performed By: #### L 500.2500, L501.9520, L100.0500 #### [facility] [address] [place], [address] Urea nitrogen [Mass/Vol] 13 mg/dL Normal 4-19 [facility] Comment on above: Performed By: #### L 500.2500, L501.9520, L100.0500 #### [facility] [address] [place], [address] Basophil percentageOrdered B y: Olivia Gates on 08-20-2024 Basophils/100 WBC (Bld) 0.5 % 0-1 [facility] Bilirubin, totalOrdered By: Olivia Gates on 08-20-2024 Bilirubin [Mass/Vol] mg/dL 0.00-1.30 [facility] CBC W/Diff, Automatedon 05-1 -2024 Absolute Lymph 3.62 X10 3/uL Normal 0.83-4.51 [facility] Comment on above: Performed By: #### L 500.4050, L501.89147, L501.9985, L501.9520, L506.0400, L100.0100 ####[facility] [address] [place], [address] Absolute Neut 7.2 X10 3/uL Normal 2.0-7.7 [facility] Comment on above: Performed By: #### L 500.4050, L501.57708, L501.9985, L501.9520, L506.0400, L100.0100 ####[facility] [address] [place], [address] Basophils/100 WBC (Bld) 0.5 % Normal 0-1 [facility] Comment on above: Performed By: #### L 500.4050, L501.15970, L501.9985, L501.9520, L506.0400, L100.0100 ####[facility] [address] [place], [address] Eosinophils/100 WBC (Bld) 0.9 % Normal 0-5 [facility] Comment on above: Performed By: #### L 500.4050, L501.28462, L501.9985, L501.9520, L506.0400, L100.0100 ####[facility] [address] [place], [address] Erythrocyte distribution width (RBC) [Ratio] 16.8 % High 11.6-14.6 [facility] Comment on above: Performed By: #### L 500.4050, L501.26845, L501.9985, L501.9520, L506.0400, L100.0100 ####[facility] [address] [place], [address] Hematocrit (Bld) [Volume fraction] 38.4 % Normal 37-47 [facility] Comment on above: Performed By: #### L 500.4050, L501.08503, L501.9985, L501.9520, L506.0400, L100.0100 ####[facility] [address] [place], [address] Hemoglobin (Bld) [Mass/Vol] 11.7 g/dL Low 12.0-15.0 [facility] Comment on above: Performed By: #### L 500.4050, L501.08668, L501.9985, L501.9520, L506.0400, L100.0100 ####[facility] [address] [place], [address] IG% 0.700 Normal 0.0-0.9 [facility] Comment on above: Result Comment: IG% - Immature Granulocytes (promyelocytes, myelocytes and metamyelocytes) > 1% indicates that a LEFT SHIFT is Present. Performed By: #### L 500.4050, L501.12110, L501.9985, L501.9520, L506.0400, L100.0100 ####[facility] [address] [place], [address] Lymphocytes/100 WBC (Bld) 30.3 % Normal 19-41 [facility] Comment on above: Performed By: #### L 500.4050, L501.88830, L501.9985, L501.9520, L506.0400, L100.0100 ####[facility] [address] [place], [address] MCH (RBC) [Entitic mass] 24.5 pg Low 27.0-32.0 [facility] Comment on above: Performed By: #### L 500.4050, L501.36305, L501.9985, L501.9520, L506.0400, L100.0100 ####[facility] [address] [place], [address] MCHC (RBC) [Mass/Vol] 30.5 g/dL Low 32-36 [facility] Comment on above: Performed By: #### L 500.4050, L501.04961, L501.9985, L501.9520, L506.0400, L100.0100 ####[facility] [address] [place], [address] MCV (RBC) [Entitic vol] 80.5 fL Low 81-99 [facility] Comment on above: Performed By: #### L 500.4050, L501.98033, L501.9985, L501.9520, L506.0400, L100.0100 ####[facility] [address] [place], [address] Monocytes/100 WBC (Bld) 7.0 % Normal 0-10 [facility] Comment on above: Performed By: #### L 500.4050, L501.51542, L501.9985, L501.9520, L506.0400, L100.0100 ####[facility] [address] [place], [address] Neutrophils/100 WBC (Bld) 60.6 % Normal 47-70 [facility] Comment on above: Performed By: #### L 500.4050, L501.60050, L501.9985, L501.9520, L506.0400, L100.0100 ####[facility] [address] [place], [address] Nucleated RBC (Bld) [#/Vol] 0 10*3/uL Normal 0-5 [facility] Comment on above: Performed By: #### L 500.4050, L501.31097, L501.9985, L501.9520, L506.0400, L100.0100 ####[facility] [address] [place], [address] Platelet mean volume (Bld) [Entitic vol] 9.8 fL Normal 6.2-12.0 [facility] Comment on above: Performed By: #### L 500.4050, L501.32370, L501.9985, L501.9520, L506.0400, L100.0100 ####[facility] [address] [place], [address] Platelets (Bld) [#/Vol] 392 10*3/uL Normal 150-450 [facility] Comment on above: Performed By: #### L 500.4050, L501.10135, L501.9985, L501.9520, L506.0400, L100.0100 ####[facility] [address] [place], [address] RBC (Bld) [#/Vol] 4.77 10*6/uL Normal 4.2-5.4 [facility] Comment on above: Performed By: #### L 500.4050, L501.44358, L501.9985, L501.9520, L506.0400, L100.0100 ####[facility] [address] [place], [address] RDW SD 48.6 fl High 35.1-43.9 [facility] Comment on above: Performed By: #### L 500.4050, L501.61794, L501.9985, L501.9520, L506.0400, L100.0100 ####[facility] [address] [place], [address] WBC (Bld) [#/Vol] 11.9 10*3/uL High 4.4-11.0 [facility] Comment on above: Performed By: #### L 500.4050, L501.96971, L501.9985, L501.9520, L506.0400, L100.0100 ####[facility] [address] [place], [address] CBC-Complete Blood Cnt No Di ffon 08-20-2024 Erythrocyte distribution width (RBC) [Ratio] 16.8 % High 11.6-14.6 [facility] Comment on above: Performed By: #### L 500.2500, L501.9520, L100.0500 #### [facility] Laboratory [address] [place], [address] Hematocrit (Bld) [Volume fraction] 38.3 % Normal 37-47 [facility] Comment on above: Performed By: #### L 500.2500, L501.9520, L100.0500 #### [facility] Laboratory [address] [place], [address] Hemoglobin (Bld) [Mass/Vol] 11.7 g/dL Low 12.0-15.0 [facility] Comment on above: Performed By: #### L 500.2500, L501.9520, L100.0500 #### [facility] Laboratory [address] [place], [address] MCH (RBC) [Entitic mass] 24.6 pg Low 27.0-32.0 [facility] Comment on above: Performed By: #### L 500.2500, L501.9520, L100.0500 #### [facility] Laboratory [address] [place], [address] MCHC (RBC) [Mass/Vol] 30.5 g/dL Low 32-36 [facility] Comment on above: Performed By: #### L 500.2500, L501.9520, L100.0500 #### [facility] Laboratory [address] [place], [address] MCV (RBC) [Entitic vol] 80.5 fL Low 81-99 [facility] Comment on above: Performed By: #### L 500.2500, L501.9520, L100.0500 #### [facility] Laboratory [address] [place], [address] Platelet mean volume (Bld) [Entitic vol] 10.0 fL Normal 6.2-12.0 [facility] Comment on above: Performed By: #### L 500.2500, L501.9520, L100.0500 #### [facility] Laboratory [address] [place], [address] Platelets (Bld) [#/Vol] 390 10*3/uL Normal 150-450 [facility] Comment on above: Performed By: #### L 500.2500, L501.9520, L100.0500 #### [facility] Laboratory [address] [place], [address] RBC (Bld) [#/Vol] 4.76 10*6/uL Normal 4.2-5.4 [facility] Comment on above: Performed By: #### L 500.2500, L501.9520, L100.0500 #### [facility] Laboratory [address] [place], [address] RDW SD 48.8 fl High 35.1-43.9 [facility] Comment on above: Performed By: #### L 500.2500, L501.9520, L100.0500 #### [facility] Laboratory [address] [place], [address] WBC (Bld) [#/Vol] 12.4 10*3/uL High 4.4-11.0 [facility] Comment on above: Performed By: #### L 500.2500, L501.9520, L100.0500 #### [facility] Laboratory [address] [place], [address] Carbon dioxide, total [Moles /volume] in Central venous bloodOrdered By: Olivia Gates on 08-20-2024 CO2 [Moles/Vol] 23.8 mmol/L 21.0-32.0 [facility] Chloride assayOrdered By: Fina Gates on 08-20-2024 Chloride [Moles/Vol] 104 mmol/L 98-108 [facility] Comprehensive Metabolic Prof ilon 08-20-2024 Albumin [Mass/Vol] 3.6 g/dL Normal 3.4-4.8 [facility] Comment on above: Performed By: #### L 500.4050, L501.88408, L501.9985, L501.9520, L506.0400, L100.0100 ####[facility] [address] [place], [address] Albumin/Globulin [Mass ratio] 1.2 {ratio} Normal 0.9-2.4 [facility] Comment on above: Performed By: #### L 500.4050, L501.43460, L501.9985, L501.9520, L506.0400, L100.0100 ####[facility] [address] [place], [address] ALK PHOS 92 U/L Normal 35-104 [facility] Comment on above: Performed By: #### L 500.4050, L501.04005, L501.9985, L501.9520, L506.0400, L100.0100 ####[facility] [address] [place], [address] ALT [Catalytic activity/Vol] 11 U/L Normal <=34 [facility] Comment on above: Performed By: #### L 500.4050, L501.91853, L501.9985, L501.9520, L506.0400, L100.0100 ####[facility] [address] [place], [address] AST [Catalytic activity/Vol] 17 U/L Normal <=31 [facility] Comment on above: Performed By: #### L 500.4050, L501.63440, L501.9985, L501.9520, L506.0400, L100.0100 ####[facility] [address] [place], [address] BUN/CRE 14.9 RATIO Normal 10-20 [facility] Comment on above: Performed By: #### L 500.4050, L501.55962, L501.9985, L501.9520, L506.0400, L100.0100 ####[facility] [address] [place], [address] Calcium [Mass/Vol] 8.9 mg/dL Normal 7.6-11.0 [facility] Comment on above: Performed By: #### L 500.4050, L501.69224, L501.9985, L501.9520, L506.0400, L100.0100 ####[facility] [address] [place], [address] Chloride [Moles/Vol] 104 mmol/L Normal 98-108 [facility] Comment on above: Performed By: #### L 500.4050, L501.70048, L501.9985, L501.9520, L506.0400, L100.0100 ####[facility] [address] [place], [address] CO2 [Moles/Vol] 23.8 mmol/L Normal 21.0-32.0 [facility] Comment on above: Performed By: #### L 500.4050, L501.07560, L501.9985, L501.9520, L506.0400, L100.0100 ####[facility] [address] [place], [address] Creatinine [Mass/Vol] 0.85 mg/dL Normal 0.70-1.20 [facility] Comment on above: Performed By: #### L 500.4050, L501.09543, L501.9985, L501.9520, L506.0400, L100.0100 ####[facility] [address] [place], [address] GAP 12 Normal 5-15 [facility] Comment on above: Performed By: #### L 500.4050, L501.23084, L501.9985, L501.9520, L506.0400, L100.0100 ####[facility] [address] [place], [address] GFR/1.73 sq M.predicted among non-blacks MDRD (S/P/Bld) [Vol rate/Area] 73 mL/min/{1.73_m2} Normal >60 [facility] Comment on above: Result Comment: mL/m in/1.73m2 CKD-EPI Creatinine Equation (2020) Performed By: #### L 500.4050, L501.50140, L501.9985, L501.9520, L506.0400, L100.0100 ####[facility] [address] [place], [address] Globulin (S) [Mass/Vol] 3.1 g/dL Normal 2.2-4.2 [facility] Comment on above: Performed By: #### L 500.4050, L501.89547, L501.9985, L501.9520, L506.0400, L100.0100 ####[facility] [address] [place], [address] Glucose [Mass/Vol] 87 mg/dL Normal 70-99 [facility] Comment on above: Performed By: #### L 500.4050, L501.66793, L501.9985, L501.9520, L506.0400, L100.0100 ####[facility] [address] [place], [address] Potassium [Moles/Vol] 4.0 mmol/L Normal 3.3-5.1 [facility] Comment on above: Performed By: #### L 500.4050, L501.65352, L501.9985, L501.9520, L506.0400, L100.0100 ####[facility] [address] [place], [address] Sodium [Moles/Vol] 139 mmol/L Normal 133-145 [facility] Comment on above: Performed By: #### L 500.4050, L501.43038, L501.9985, L501.9520, L506.0400, L100.0100 ####[facility] [address] [place], [address] T BILI < 0.15 Normal 0.00-1.30 [facility] Comment on above: Performed By: #### L 500.4050, L501.36265, L501.9985, L501.9520, L506.0400, L100.0100 ####[facility] [address] [place], [address] T PROT 6.7 g/dL Normal 5.9-8.4 [facility] Comment on above: Performed By: #### L 500.4050, L501.34036, L501.9985, L501.9520, L506.0400, L100.0100 ####[facility] [address] [place], [address] Urea nitrogen [Mass/Vol] 13 mg/dL Normal 4-19 [facility] Comment on above: Performed By: #### L 500.4050, L501.05537, L501.9985, L501.9520, L506.0400, L100.0100 ####[facility] [address] [place], [place], [address] Eosinophil percentageOrdered By: Olivia Gates on 08-20-2024 Eosinophils/100 WBC (Bld) 0.9 % 0-5 [facility] Erythrocyte distribution wid th ratioOrdered By: Olivia Gates on 08-20-2024 Erythrocyte distribution width (RBC) [Ratio] 16.8 % High 11.6-14.6 [facility] Erythrocyte distribution wid th standard deviationOrdered By: Olivia Gates on 08-20-2024 Erythrocyte distribution width (RBC) [Ratio] 48.6 fl High 35.1-43.9 [facility] Free T3on 08-20-2024 Free T3 [Mass/Vol] 2.1 pg/mL Low 2.18-3.98 [facility] Comment on above: Performed By: #### L 500.4050, L501.63871, L501.9985, L501.9520, L506.0400, L100.0100 ####[facility] [address] [facility] [place], [address] Free L4Ifxjkqm By: Olivia boss on 08-20-2024 Free T3 [Mass/Vol] 2.1 pg/mL Low 2.18-3.98 [facility] Glomerular filtration rate ( GFR) estimation/1.73 sq m using serum, plasma, or whole bOrdered By: Olivia Gates on 08-20-2024 GFR/1.73 sq M.predicted among non-blacks MDRD (S/P/Bld) [Vol rate/Area] 73 mL/min/{1.73_m2} >60 [facility] Comment on above: mL/min/1.73m2 CKD-EP I Creatinine Equation (2020) Hematocrit Auto (Bld) [Volum e fraction]Ordered By: Olivia Gates on 08-20-2024 Hematocrit (Bld) [Volume fraction] 38.4 % 37-47 [facility] Hemoglobin A1con 08-20-2024 HbA1c (Bld) [Mass fraction] 6.1 % High <=5.6 [facility] Comment on above: Result Comment: Norm al < 5.7 % Prediabetic 5.7 - 6.4 % Diabetic >or= 6.5 % Please note range changes. Performed By: #### L 500.4050, L501.74434, L501.9994, L501.9520, L506.0400, L100.0100 ####[facility] [address] [place], [address] Hemoglobin A1c percentageOrd ered By: Olivia Gates on 08-20-2024 HbA1c (Bld) [Mass fraction] 6.1 % High <5.7 [facility] Comment on above: Normal < 5.7 % Predi abetic 5.7 - 6.4 % Diabetic >or= 6.5 % Please note range changes. Hemoglobin measurementOrdere d By: Olivia Gates on 08-20-2024 Hemoglobin (Bld) [Mass/Vol] 11.7 g/dL Low 12.0-15.0 [facility] Immature granulocytes/100 WB C Auto (Bld)Ordered By: Olivia Gates on 08-20-2024 Immature granulocytes/100 WBC (Bld) 0.700 % 0.0-0.9 [facility] Comment on above: IG% - Immature Granu locytes (promyelocytes, myelocytes and metamyelocytes) > 1% indicates that a LEFT SHIFT is Present. Laboratory - Chemistry and C hemistry - challengeOrdered By: Olivia Gates on 08-20-2024 AST [Catalytic activity/Vol] 17 U/L <32 [facility] MCV (mean corpuscular volume ) determinationOrdered By: Olivia Gates on 08-20-2024 MCV (RBC) [Entitic vol] 80.5 fL Low 81-99 [facility] MR/PAT.ANEon 08-20-2024 MR/PAT.ANE [facility] Medical Records Department [address] [place] [address] PAT - Anesthesia 08/20/24 1548 MR#: [id number] Acct: [id number] Name: ARIELLANENA Rep #: [id number] : 1955 69 From: Tenzin Pedroza MD PCP: Dr. Olivia Gates, DO Status:PRE SDC Y Race: C Location: [facility] Pre-Assessment Diagnosis/Proposed Procedure Planned Operative Procedure(s): RIGHT SHOULDER ARTHROSCOPY SUBCROMIAL DECOMPRESSION DISTAL CLAVICLE RTC REPAIR Anesthesia History Anesthesia History - dosimetrist: Anesthesia History - dosimetrist Hx Hospitalization No 08/16/24 13:41 Any Problems With Anesthesia No 08/16/24 13:41 Cholinesterase deficiency No 08/16/24 13:41 You/Your Family Experience No 08/16/24 13:41 fever (hyperthermia) with Relationship Recent Exposure to Contagious No 10/14/14 09:45 Disease Does patient have nerve No 08/16/24 13:41 stimulator Patient instructed to have device shut off --Does patient have Pacemaker or ICD? When Was Last Pacemaker Check QUESTION #4 FULL TEXT: You/Your Family Experience fever (hyperthermia) with Anesthesia Last Oral Intake Last Oral intake: Last Oral Intake NPO since Meds taken in AM with sips of water? 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 - dosimetrist: PONV - dosimetrist Female Yes 08/16/24 13:41 HX of Motion Sickness No 08/16/24 13:41 HX of N/V After Surgery No 08/16/24 13:41 Non-Smoker Yes 08/16/24 13:41 Duration of Surgery greater Yes 08/16/24 13:41 than 60 minutes Number of Risk Factors 3 08/16/24 13:41 PONV Score Moderate Risk 08/16/24 13:41 Height Weight Height Weight: Anesthesia: Height Weight Height 5 ft 3 in 07/05/24 09:44 Respiratory Assessment Respiratory Assessment - dosimetrist: Respiratory Tract Infection Hx - dosimetrist Hx Respiratory Tract Infection No 08/16/24 13:41 STOP Sleep Apnea STOP Sleep Apnea - dosimetrist: STOP Sleep Apnea - dosimetrist Hx Hypertension Yes: CONTROLLED WITH MED 08/16/24 13:41 Hx Sleep Apnea No 08/16/24 13:41 CPAP No 12/22/21 19:02 BIPAP No 12/22/21 19:02 Do you snore loudly (louder No 08/16/24 13:41 than talking or can be heard Do you often feel tired/ No 08/16/24 13:41 fatigued/ sleepy during daytime? Has anyone observed you stop No 08/16/24 13:41 breathing during sleep? STOP Results Negative 08/16/24 13:41 QUESTION #5 FULL TEXT : Do you snore loudly (louder than talking or can be heard through closed doors)? 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 Specify any problems Hx of Preganancy in last 3 No 08/16/24 13:41 Months Nurse Filling Out Transfusion DSCHRIBER 08/16/24 13:41 Questions: Date: 08/16/24 08/16/24 13:41 Time: 13:43 08/16/24 13:41 Patient unable to answer at this time (ie. confused, unrespo /Reproduction History /Reproductive History - dosimetrist: /Reproductive Hx- dosimetrist Hx Now No 08/16/24 13:41 Gestational Age (in weeks): EDC: Hx Hx Para Hx Section SAB No 08/16/24 13:41 Active Medications Active Medications: Current Medications Generic Name Dose Route Start Last Admin Trade Name Freq PRN Reason Stop Dose Admin Cefazolin Sodium 2 gm/ Sodium 110 mls @ 150 mls/hr 08/21/24 09:00 Chloride IV 08/21/24 09:43 INTRAOP ONE PFSH Medical History Wears glasses Wears dentures Post-menopausal Alcohol use Ambulates with cane Arthritis Bladder disease Back pain History of hiatal hernia Non-smoker Persistent dry cough Leg cramps History of pain when walking History of stress test History of echocardiogram Hx of fracture of wrist 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, right shoulder Right rotator cuff tear Right shoulder pain Right rib fracture Pulmonary hypertension Bronchitis GERD (gastr (more content not included)... Normal [facility] Mean corpuscular hemoglobin (MCH) determinationOrdered By: Olivia Gates on 08-20-2024 MCH (RBC) [Entitic mass] 24.5 pg Low 27.0-32.0 [facility] Mean corpuscular hemoglobin concentration (MCHC) determinationOrdered By: Olivia Gates on 08-20-2024 MCHC (RBC) [Mass/Vol] 30.5 g/dL Low 32-36 [facility] Mean platelet volume determi nationOrdered By: Olivia Gates on 08-20-2024 Platelet mean volume (Bld) [Entitic vol] 9.8 fL 6.2-12.0 [facility] Monocyte percentageOrdered B y: Olivia Gates on 08-20-2024 Monocytes/100 WBC (Bld) 7.0 % 0-10 [facility] Neutrophil percentageOrdered By: Olivia Gates on 08-20-2024 Neutrophils/100 WBC (Bld) 60.6 % 47-70 [facility] Nucleated red blood cell per centageOrdered By: Olivia Gates on 08-20-2024 Nucleated RBC/100 WBC (Bld) [Ratio] 0 % 0-5 [facility] Platelet countOrdered By: Fina Gates on 08-20-2024 Platelets (Bld) [#/Vol] 392 10*3/uL 150-450 [facility] Potassium measurement (mass/ volume)Ordered By: Olivia Gates on 08-20-2024 Potassium (Unsp spec) [Mass/Vol] 4.0 mmol/L 3.3-5.1 [facility] RBC Auto (Bld) [#/Vol]Ordere d By: Olivia Gates on 08-20-2024 RBC (Bld) [#/Vol] 4.77 10*6/uL 4.2-5.4 [facility] Serum creatinine measurement (mass/volume)Ordered By: Olivia Gates on 08-20-2024 Creatinine [Mass/Vol] 0.85 mg/dL 0.70-1.20 [facility] Serum globulin measurementOr dered By: Olivia Gates on 08-20-2024 Globulin (S) [Mass/Vol] 3.1 g/dL 2.2-4.2 [facility] Serum glucose measurement (m ass/volume)Ordered By: Olivia Gates on 08-20-2024 Glucose [Mass/Vol] 87 mg/dL 70-99 [facility] Serum or plasma alanine mccartney otransferase (ALT) measurementOrdered By: Olivia Gates on 08-20-2024 ALT [Catalytic activity/Vol] 11 U/L <35 [facility] Serum or plasma albumin swati urement (mass/volume)Ordered By: Olivia Gates on 08-20-2024 Albumin [Mass/Vol] 3.6 g/dL 3.4-4.8 [facility] Serum or plasma albumin/glob ulin mass ratioOrdered By: Olivia Gates on 08-20-2024 Albumin/Globulin [Mass ratio] 1.2 {ratio} 0.9-2.4 [facility] Serum or plasma alkaline leonie sphatase measurementOrdered By: Olivia Gates on 08-20-2024 ALP [Catalytic activity/Vol] 92 U/L 35-104 [facility] Serum or plasma calcium swati urement (mass/volume)Ordered By: Olivia Gates on 08-20-2024 Calcium [Mass/Vol] 8.9 mg/dL 7.6-11.0 [facility] Serum or plasma urea nitroge n measurement (mass/volume)Ordered By: Olivia Gates on 08-20-2024 Urea nitrogen [Mass/Vol] 13 mg/dL 4-19 [facility] Sodium levelOrdered By: Olivia Gates on 08-20-2024 Sodium [Moles/Vol] 139 mmol/L 133-145 [facility] T4 Free Directon 08-20-2024 T4 FREE DIRECT 1.10 ng/dL Normal 0.76-1.46 [facility] Comment on above: Performed By: #### L 500.4050, L501.95044, L501.9996, L501.9520, L506.0400, L100.0100 ####[facility] [id number] [place], [place], [id number] T4 freeOrdered By: Olivia Wyman s on 08-20-2024 Free T4 [Mass/Vol] 1.10 ng/dL 0.76-1.46 [facility] TSH DL <= 0.005 mIU/L QnOrde red By: Manolo Calvillo on 08-20-2024 TSH Qn 2.620 uIU/mL 0.300-4.20 0 [facility] TSH DL <= 0.005 mIU/L QnOrde red By: Olivia Gates on 08-20-2024 TSH Qn 2.500 uIU/mL 0.300-4.20 0 [facility] Thyroid Stim Hormone (TSH)on 08-20-2024 TSH 2.620 uIU/mL Normal 0.300-4.20 0 [facility] Comment on above: Performed By: #### L 500.2500, L501.9520, L100.0500 #### [facility] Laboratory [address] [place], [place], [id number] TSH 2.500 uIU/mL Normal 0.300-4.20 0 [facility] Comment on above: Performed By: #### L 500.4050, L501.99310, L501.9985, L501.9520, L506.0400, L100.0100 ####[facility] [id number] [place], [place], [id number] Total proteinOrdered By: Kaylee Gates on 08-20-2024 Protein [Mass/Vol] 6.7 g/dL 5.9-8.4 [facility] White blood cell (WBC) count Ordered By: Olivia Gates on 08-20-2024 WBC (Bld) [#/Vol] 11.9 10*3/uL High 4.4-11.0 [facility] Urine Cultureon 08-15-2024 URC Mixed Gram Positive Organisms [place] Count 11,000-25,000 MIXC Mixed contaminants. Submit a new specimen if indicated. Normal [facility] Comment on above: Performed By: #### M 100.2200 ####[facility] [address] [place], [address] Urine cultureOrdered By: Kaylee Gates on 08-13-2024 Bacteria identified Cx Nom (U) Positive Abnormal [facility] Orthopedic Visit Reporton Orthopedic Visit Report [facility] [facility] [address] [place] [address] OFFICE VISIT Date of Service: 07/05/24 MR#: [id number] Acct: [id number] Name: NENA KRISHNAN Rep #: [id number] : 1955 Provider: Dr. Macario silva MD Age/Sex: 69/F Location: [facility] Status: Signed Intake Vital Signs 05/30/24 13:25 07/05/24 09:44 Height 5 ft 3 in 5 ft 3 in Weight: 240 lb 240 lb BMI 42.5 42.5 Intake Visit Reasons: RIGHT SHOULDER Chief Complaint: Right shoulder MRI review Accompanied by: Self Is patient in pain?: Yes Pain scale (1-10): 1 Allergies No Known Allergies Allergy (Verified 07/05/24 09:47) Medications ???Medication ???Instructions ???Recorded ???Confirmed ???Type paroxetine HCl 40 mg tablet (Paxil) 40 mg PO DAILY depression 01/2907/05/24 History trazodone 50 mg tablet 100 mg PO QHS sleep 01/29/1307/05 History esomeprazole magnesium 40 mg 40 mg PO BID GERD 05/16/14 5 History capsule,delayed release (Nexium) lorazepam 1 mg tablet 2 mg PO BID anxiety 10/11/1607/05 History cholecalciferol (vitamin D3) 1,250 50,000 units PO KEITA Vit D deficie ncy 05/20/17 07/05/24 History mcg (50,000 unit) capsule hydrocodone-acetaminophen 5-325mg 1 ea PO TID PRN Pain 06/22/17 History 5mg-325mg ([place]) budesonide 180 mcg/actuation 2 puff inhalation BID SOB/wheezing 12/13/17 07/05/24 History breath activated powder inhaler (Pulmicort Flexhaler) levothyroxine 50 mcg tablet 50 mcg PO DAILY thyroid 12/13/17 0 07/05/24 History losartan 50 mg tablet 50 mg PO DAILY blood pressure 06/0907/05/24 History montelukast 10 mg tablet 10 mg PO DAILY allergies 07/04/20 07/05/24 History albuterol sulfate 90 mcg/actuation 1 - 2 puff inhalation Q4H PRN MD N 04/13/21 07/05/24 Rx aerosol inhaler (Ventolin HFA) Wheezing #8.5 grams azelastine 137 mcg (0.1 %) nasal 2 spray intranasal BID 12/22/21 History spray antihistamine Have you fallen in the past year?: No PFSH Medical History 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, right shoulder Right rotator cuff tear Right shoulder pain Right rib fracture Rheumatoid arthritis Pulmonary hypertension Bronchitis Asthma RAJNI (obstructive sleep apnea) GERD (gastroesophageal reflux disease) Depression Anxiety Hypothyroidism HTN (hypertension) Chronic back pain Surgical History History of cholecystectomy History of hysterectomy History of back surgery History of hernia repair Family History Father Cancer Mother Cancer Sister Cancer Brother Cancer Social History household members: children Smoking Status: Never smoker second hand exposure: No alcohol intake: never substance use type: does not use HPI RIGHT SHOULDER Details: This documentation accurately reflects the service provided and the decisions made by me, Dr. Macario Llanos MD 07/05/24 0850. Part of today???s visit was documented by [ ], acting as scribe. NENA KRISHNAN is a 69 year old F here today for Follow-up right shoulder MRI. Patient still having pain lateral aspect of the arm radiating down the arm worse with lifting tries to use left hand more. Worse with reaching up into the cupboards. Patient has tried multiple injections and rounds of physical therapy as well as home-based exercises. Supplemental Info [facility] Imaging Services [address] [place] [address] Upper Ext Joint Only(Routine) MR#: [id number] Acct: [id number] Name: NENA KRISHNAN Rep #: [id number] : 1955 F 69 From: Manpreet Schwarz DO PCP: Dr. Olivia Gates DO Status: REG CLI Study: Upper Ext Joint Only(Routine) Date of Exam: 06/26/24 Exam# [id number] Ordering Dr: Macario Llanos MD PROCEDURE: MRI right shoulder without IV contrast REASON FOR EXAM: Pain TECHNIQUE: Multisequence multiplanar MR images of the right shoulder were obtained without the administration of intravenous contrast. COMPARISON: None. FINDINGS Mild/moderate supraspinatus tendinopathy with 2 small split tears at the anterior and mid insertional fibers. Infraspinatus and subscapularis tendons are intact. No significant rotator cuff muscle atrophy or edema. Long head biceps tendon is intact. Minimal posterior humeral head subluxation. Probable degenerative fraying of the pos (more content not included)... Normal [facility] Magnetic resonance imaging r eportOrdered By: Manpreet Schwarz on 06-26-2024 Study report [facility] Imaging Services [address] [place] [address] Upper Ext Joint Only(Routine) MR#: [id number] Acct: [id number] Name: NENA KRISHNAN Rep #: [id number] : 1955 F 69 From: Ruben Schwarz DO PCP: Dr. Olivia Gates DO Status: REG CLI Study:Upper Ext Joint Only(Routine) Date of Exam: 06/26/24 Exam# [id number] Ordering Dr: Macario Llanos MD PROCEDURE: MRI right shoulder without IV contrast REASON FOR EXAM: Pain TECHNIQUE: Multisequence multiplanar MR images of the right shoulder were obtained without the administration of intravenous contrast. COMPARISON: None. FINDINGS Mild/moderate supraspinatus tendinopathy with 2 small split tears at the anterior and mid insertional fibers. Infraspinatus and subscapularis tendons are intact. No significant rotator cuffmuscle atrophy or edema. Long head biceps tendon is intact. Minimal posterior humeral head subluxation. Probable degenerative fraying of the posterosuperior and posterior labrum which is diffusely diminutive. No paralabral cysts. Tplz-jm-shsyvezi diffuse thinning of the glenoid cartilage. High-grade chondral thinning along the superomedial humeral head over a 15 mm diameter. No sizable glenohumeral joint effusion. Mild pericapsular edema along the inferior glenohumeral ligament. Acromioclavicular joint alignment is intact. No significant joint effusion. Mild acromioclavicular joint osteoarthritis including small marginal osteophytes and mild capsular hypertrophy. Negative for fracture or marrow replacement. Enthesopathic cysts along the anterior aspect of the greater and lesser humeral tuberosities. No significant fluid in the subacromial/subdeltoid bursa. MRI/Upper Ext Joint Only(Routine) IMPRESSION: 1. Supraspinatus tendinopathy with superimposed split tears at the anterior and mid insertion. 2. Mild glenohumeral and acromioclavicular joint osteoarthritis as detailed above. 3. Mild pericapsular edema along the inferior glenohumeral ligament which may relate to capsular sprain or adhesive capsulitis. Please correlate clinically. Reading Location: [facility] CC: Dr. Olivia Gates DO; Dr. Macario Llanos MD ~ Mop Worker: Signed [facility] Upper Ext Joint Only(Routine )on 06-26-2024 Upper Ext Joint Only(Routine) [facility] Imaging Services [address] [place] [id number] Upper Ext Joint Only(Routine) MR#: [id number] Acct: [id number] Name: NENA KRISHNAN Rep #: [id number] : 1955 F 69 From: Manpreet Valenzuela PCP: Dr. Olivia Gates DO Status: REG CLI Study: Upper Ext Joint Only(Routine) Date of Exam: 0 06/26/24 Exam# [id number] Ordering Dr: Macario Llanos MD PROCEDURE: MRI right shoulder without IV contrast REASON FOR EXAM: Pain TECHNIQUE: Multisequence multiplanar MR images of the right shoulder were obtained without the administration of intravenous contrast. COMPARISON: None. FINDINGS Mild/moderate supraspinatus tendinopathy with 2 small split tears at the anterior and mid insertional fibers. Infraspinatus and subscapularis tendons are intact. No significant rotator cuff muscle atrophy or edema. Long head biceps tendon is intact. Minimal posterior humeral head subluxation. Probable degenerative fraying of the posterosuperior and posterior labrum which is diffusely diminutive. No paralabral cysts. Qlpl-ae-iisaiukt diffuse thinning of the glenoid cartilage. High-grade chondral thinning along the superomedial humeral head over a 15 mm diameter. No sizable glenohumeral joint effusion. Mild pericapsular edema along the inferior glenohumeral ligament. Acromioclavicular joint alignment is intact. No significant joint effusion. Mild acromioclavicular joint osteoarthritis including small marginal osteophytes and mild capsular hypertrophy. Negative for fracture or marrow replacement. Enthesopathic cysts along the anterior aspect of the greater and lesser humeral tuberosities. No significant fluid in the subacromial/subdeltoid bursa. MRI/Upper Ext Joint Only(Routine) IMPRESSION: 1. Supraspinatus tendinopathy with superimposed split tears at the anterior and mid insertion. 2. Mild glenohumeral and acromioclavicular joint osteoarthritis as detailed above. 3. Mild pericapsular edema along the inferior glenohumeral ligament which may relate to capsular sprain or adhesive capsulitis. Please correlate clinically. Electronically Signed By: Manpreet silva 06/26/2024 18:14 Reading Location: [facility] CC: Dr. Olivia Gates DO; Dr. Macario Llanos MD Mop Worker: Signed Normal [facility] Orthopedic Visit Reporton Orthopedic Visit Report [facility] [address] [place] [address] OFFICE VISIT Date of Service: 05/30/24 MR#: [id number] Acct: [id number] Name: NENA KRISHNAN Rep #: [id number] : 1955 Provider: Dr. Macario silva MD Age/Sex: 69/F Location: [facility] Status: Signed with Addenda ADDENDUM by Angelica Maxwell on 05/30/24 at 1418 Office Procedure Documentation entered by Angelica Maxwell 05/30/24 14:18: Ortho Injections Injections Yes Subacromial Injection Right Is this a patient provided medication?: No Details: Obtained consent for injection. Under sterile conditions, injected the patients right subacromial with 2cc kenalog 4cc bupivacaine. The patient tolerated the injection well without any noted complication. Patient should call our office if redness develops, pain worsens or if they have any concerns. Office Meds Kenalog 40 mg/mL suspension for injection Performing Provider: Macario Llanos MD Performing Location: [facility] Administered by: Macario Llanos MD on 05/30/24 14:17 Dose Route Admin Location Dispensed Lot Number Expiration Date NDC Man ufacturer 80 mg intra-articular right subacromial 2 mL [id number] 08/08/25 5765-5187-2 8 [facility] Date cc: * Signed Intake Vital Signs 05/18/24 13:37 05/30/24 13:25 Height 5 ft 2 in 5 ft 3 in Weight: 240 lb BMI 42.5 Intake Visit Reasons: RIGHT SHOULDER Accompanied by: Self Is patient in pain?: Yes Pain scale (1-10): 6 Allergies No Known Allergies Allergy (Verified 05/30/24 13:25) Have you fallen in the past year?: No PFSH Medical History (Updated 05/30/24 @ 10:35 by Macario Llanos MD) Right shoulder pain Right rib fracture Rheumatoid arthritis Pulmonary hypertension Bronchitis Asthma RAJNI (obstructive sleep apnea) GERD (gastroesophageal reflux disease) Depression Anxiety Hypothyroidism HTN (hypertension) Chronic back pain Surgical History History of cholecystectomy History of hysterectomy History of back surgery History of hernia repair Family History Father Cancer Mother Cancer Sister Cancer Brother Cancer Social History household members: children Smoking Status: Never smoker second hand exposure: No alcohol intake: never substance use type: does not use HPI RIGHT SHOULDER Details: This documentation accurately reflects the service provided and the decisions made by me, Dr. Macario Llanos MD 05/30/24 1034. Part of today???s visit was documented by [ ], acting as scribe. NENA KRISHNAN is a 69 year old F here today for right shoulder pain after a fall and right rib fractures. Tripped down steps 6 weeks ago. states around thanksgiving. grabbed a door frame. hurts in the shoulder felt the shoulder 'move back'. RHD. does some crafts. [place] - 'moving it around'. constant pain worse with reaching. worse with laying on it at night. had prior cortisone injection in the shoulder. 12 days follow-up from a visit to the ED. >> Patient is a 69-year-old ubjid-qppo-ibivvvfx female. She presents because of injury that occurred over a month ago. She reports right shoulder pain. She presents because of persistent pain. She states she is unable to raise her arm above her head. She denies paresthesia, anesthesia medics. There is no history of direct trauma. She was walking out the door began to fell grabbed the door with her right upper extremity causing it to be abducted and externally rotated. There is no trauma to the shoulder or chest wall. Supplemental Info [facility] Imaging Services [address] [place], [place] [id number] Shoulder min 2 Views MR#: [id number] Acct: [id number] Name: NENA KRISHNAN Rep #: [id number] : 1955 F 69 From: Juanjose Hensley MD PCP: Dr. Olivia Gates, DO Status: PRE ER Study: Shoulder min 2 Views Date of Exam: 05/18/24 Exam# [id number] Ordering Dr: Provider,Ed P. PROCEDURE: SHOULDER MIN 2 VIEWS REASON FOR EXAM: Pain TECHNIQUE: 4 views right shoulder COMPARISON: None. FINDINGS: Scattered degenerative changes. Osseous structures intact in the shoulder. No dislocations. Bone loss. Minimally displaced posterolateral right-sided rib fracture, potentially affecting 6th and 7th ribs. No underlying pneumothorax definitively seen. RAD/Shoulder min 2 Views IMPRESSION: As above. Electronically Signed By: Juanjose Hensley (more content not included)... Normal [facility] Emergency Department Summary on 05-18-2024 Emergency Department Summary [facility] Medical Records Department [address] [place] [address] Emergency Department Summary 05/18/24 MR#: [id number] Acct: [id number] Name: NENA KRISHNAN Rep #: [id number] : 1955 69 From: Federico Arango MD PCP: Dr. Olivia Gates, DO Status:PRE ER Location: ED HPI History of Present Illness HPI Narrative: Right shoulder pain due to injury 1 month ago Chief Complaint: Upper Extremity Injury Detail of Chief Complaint: Right shoulder pain and limited range of motion Informant: patient Occured/Mechanism Mechanism/Context: Yes fall Comment: Patient was falling. She grabbed object that she was falling and her right arm at the shoulder was pulled back Onset/Context/Timing Onset: Month(s) (1 month is slightly greater than 1 month. Patient) Context: Sudden Onset Timing: Continuous Quality of Pain: Dull and Aching Location: Right shoulder region Current Severity: Mild Maximum Severity: Moderate Worsened by: Movement and palpation Relieved by: Nothing Associated Symptoms Associated Symptoms: Positive for Loss of Funtion (Patient is able to abduct to 90 degrees. She cannot abduct past 90 degrees); Negative for Parasthesia or Weakness Narrative Narrative: Patient is a 69-year-old hlkhq-sywr-kuagnbbp female. She presents because of injury that occurred over a month ago. She reports right shoulder pain. She presents because of persistent pain. She states she is unable to raise her arm above her head. She denies paresthesia, anesthesia medics. There is no history of direct trauma. She was walking out the door began to fell grabbed the door with her right upper extremity causing it to be abducted and externally rotated. There is no trauma to the shoulder or chest wall. Prior similar symptoms: No Recent Illness/Hospitalization: No PFSH PFSH Medical History Rheumatoid arthritis Pulmonary hypertension Bronchitis Asthma RAJNI (obstructive sleep apnea) GERD (gastroesophageal reflux disease) Depression Anxiety Hypothyroidism HTN (hypertension) Chronic back pain Home Medications ???Medication ???Instructions ???Recorded ???Last Taken ???Type paroxetine HCl 40 mg tablet (Paxil) 40 mg PO DAILY depression 01/2912/22/21 History trazodone 50 mg tablet 100 mg PO QHS sleep 01/29/1312/21 History esomeprazole magnesium 40 mg 40 mg PO BID GERD 05/16/14 2 History capsule,delayed release (Nexium) lorazepam 1 mg tablet 2 mg PO BID anxiety 10/11/1612/22 History cholecalciferol (vitamin D3) 1,250 50,000 units PO KEITA Vit D deficie ncy 05/20/17 12/19/21 History mcg (50,000 unit) capsule albuterol sulfate 90 mcg/actuation 1 - 2 puff inhalation Q6H PRN MD N 05/23/17 06/16/18 Rx aerosol inhaler Asthma ##1 hydrocodone-acetaminophen 5-325mg 1 ea PO TID PRN Pain 06/22/17 History 5mg-325mg ([place]) budesonide 180 mcg/actuation 2 puff inhalation BID SOB/wheezing 12/13/17 12/21/21 History breath activated powder inhaler (Pulmicort Flexhaler) levothyroxine 50 mcg tablet 50 mcg PO DAILY thyroid 12/13/17 0 12/21/21 History losartan 50 mg tablet 50 mg PO DAILY blood pressure 06/0912/22/21 History montelukast 10 mg tablet 10 mg PO DAILY allergies 07/04/20 12/22/21 History albuterol sulfate 90 mcg/actuation 1 - 2 puff inhalation Q4H PRN MD N 04/13/21 Unknown Rx aerosol inhaler (Ventolin HFA) Wheezing #8.5 grams atorvastatin 40 mg tablet 40 mg PO QHS cholesterol 12/22/21 12/21/21 History azelastine 137 mcg (0.1 %) nasal 2 spray intranasal BID 12/22/21 History spray antihistamine Allergy/AdvReac Type Severity Reaction Status Date / Time No Known Allergies Allergy Verified 05/18/24 13:39 Family History Father Cancer Mother Cancer Sister Cancer Brother Cancer Surgical History History of cholecystectomy History of hysterectomy History of back surgery History of hernia repair Social History Smoking Status: Never smoker second hand exposure: No alcohol intake: never substance use type: does not use ROS ROS ED Constitutional Constitutional ED: Denies chills, fever(s) or subjective Cardiovascular Cardiovascular: Denies chest pain or palpitations Respiratory/Chest Respiratory/Chest: Denies cough, dyspnea or dyspnea on exertion Gastrointestinal Gastrointestinal: Denies abdominal pain Genitourinary Genitourinary ED: Denies hematuria Neurologic Neurologic: Denies paresthesias or weakness EXAM Physical Exam Const Vital Signs: 05/18/24 13:37 Temperature 96.1 F L Temperature Source Oral Pulse Rate 71 Respirator (more content not included)... Normal [facility] Shoulder min 2 Viewson 05-18 Shoulder min 2 Views [facility] Imaging Services [address] [place] [address] Shoulder min 2 Views MR#: [id number] Acct: [id number] Name: NENA KRISHNAN Rep #: [id number] : 1955 F 69 From: Juanjose Hensley MD PCP: Dr. Olivia Gates DO Status: PRE ER Study: Shoulder min 2 Views Date of Exam: 05/18/24 Exam# [id number] Ordering Dr: Provider,Ed P. PROCEDURE: SHOULDER MIN 2 VIEWS REASON FOR EXAM: Pain TECHNIQUE: 4 views right shoulder COMPARISON: None. FINDINGS: Scattered degenerative changes. Osseous structures intact in the shoulder. No dislocations. Bone loss. Minimally displaced posterolateral right-sided rib fracture, potentially affecting 6th and 7th ribs. No underlying pneumothorax definitively seen. RAD/Shoulder min 2 Views IMPRESSION: As above. Reading Location: [facility] CC: Dr. Olivia Gates DO; ED PHYSICIAN PROVIDER Mop Worker: Signed Normal [facility] CBC W/Diff, Automatedon 11-2 Absolute Lymph 3.92 X10 3/uL Normal 0.83-4.51 [facility] Comment on above: Performed By: #### L 501.9520, L500.4050, L506.0400, L501.42759, L100.0100 ####[facility] [address] [place], [address] Absolute Neut 4.9 X10 3/uL Normal 2.0-7.7 [facility] Comment on above: Performed By: #### L 501.9520, L500.4050, L506.0400, L501.51523, L100.0100 ####[facility] [address] [place], [address] Basophils/100 WBC (Bld) 0.8 % Normal 0-1 [facility] Comment on above: Performed By: #### L 501.9520, L500.4050, L506.0400, L501.52612, L100.0100 ####[facility] [address] [place], [address] Eosinophils/100 WBC (Bld) 1.9 % Normal 0-5 [facility] Comment on above: Performed By: #### L 501.9520, L500.4050, L506.0400, L501.94744, L100.0100 ####[facility] [address] [place], [address] Erythrocyte distribution width (RBC) [Ratio] 15.9 % High 11.6-14.6 [facility] Comment on above: Performed By: #### L 501.9520, L500.4050, L506.0400, L501.34961, L100.0100 ####[facility] [address] [place], [address] Hematocrit (Bld) [Volume fraction] 38.2 % Normal 37-47 [facility] Comment on above: Performed By: #### L 501.9520, L500.4050, L506.0400, L501.35472, L100.0100 ####[facility] [address] [place], [address] Hemoglobin (Bld) [Mass/Vol] 11.8 g/dL Low 12.0-15.0 [facility] Comment on above: Performed By: #### L 501.9520, L500.4050, L506.0400, L501.87846, L100.0100 ####[facility] [address] [place], [address] IG% 0.500 Normal 0.0-0.9 [facility] Comment on above: Result Comment: IG% - Immature Granulocytes (promyelocytes, myelocytes and metamyelocytes) > 1% indicates that a LEFT SHIFT is Present. Performed By: #### L 501.9520, L500.4050, L506.0400, L501.42067, L100.0100 ####[facility] [address] [place], [address] Lymphocytes/100 WBC (Bld) 40.1 % Normal 19-41 [facility] Comment on above: Performed By: #### L 501.9520, L500.4050, L506.0400, L501.79321, L100.0100 ####[facility] [address] [place], [address] MCH (RBC) [Entitic mass] 24.9 pg Low 27.0-32.0 [facility] Comment on above: Performed By: #### L 501.9520, L500.4050, L506.0400, L501.34499, L100.0100 ####[facility] [address] [place], [address] MCHC (RBC) [Mass/Vol] 30.9 g/dL Low 32-36 [facility] Comment on above: Performed By: #### L 501.9520, L500.4050, L506.0400, L501.43380, L100.0100 ####[facility] [address] [place], [address] MCV (RBC) [Entitic vol] 80.8 fL Low 81-99 [facility] Comment on above: Performed By: #### L 501.9520, L500.4050, L506.0400, L501.38313, L100.0100 ####[facility] [address] [place], [address] Monocytes/100 WBC (Bld) 6.6 % Normal 0-10 [facility] Comment on above: Performed By: #### L 501.9520, L500.4050, L506.0400, L501.82146, L100.0100 ####[facility] [address] [place], [address] Neutrophils/100 WBC (Bld) 50.1 % Normal 47-70 [facility] Comment on above: Performed By: #### L 501.9520, L500.4050, L506.0400, L501.54327, L100.0100 ####[facility] [address] [place], [address] Nucleated RBC (Bld) [#/Vol] 0 10*3/uL Normal 0-5 [facility] Comment on above: Performed By: #### L 501.9520, L500.4050, L506.0400, L501.53731, L100.0100 ####[facility] [address] [place], [address] Platelet mean volume (Bld) [Entitic vol] 9.7 fL Normal 6.2-12.0 [facility] Comment on above: Performed By: #### L 501.9520, L500.4050, L506.0400, L501.06128, L100.0100 ####[facility] [address] [place], [address] Platelets (Bld) [#/Vol] 397 10*3/uL Normal 150-450 [facility] Comment on above: Performed By: #### L 501.9520, L500.4050, L506.0400, L501.74812, L100.0100 ####[facility] [address] [place], [address] RBC (Bld) [#/Vol] 4.73 10*6/uL Normal 4.2-5.4 [facility] Comment on above: Performed By: #### L 501.9520, L500.4050, L506.0400, L501.11169, L100.0100 ####[facility] [address] [place], [address] RDW SD 46.5 fl High 35.1-43.9 [facility] Comment on above: Performed By: #### L 501.9520, L500.4050, L506.0400, L501.68892, L100.0100 ####[facility] [address] [place], [address] WBC (Bld) [#/Vol] 9.8 10*3/uL Normal 4.4-11.0 [facility] Comment on above: Performed By: #### L 501.9520, L500.4050, L506.0400, L501.61300, L100.0100 ####[facility] [address] [place], [address] Comprehensive Metabolic Prof ilon 02-28-2024 Albumin [Mass/Vol] 3.4 g/dL Normal 3.2-5.0 [facility] Comment on above: Performed By: #### L 501.9520, L500.4050, L506.0400, L501.25703, L100.0100 ####[facility] [address] [place], [address] Albumin/Globulin [Mass ratio] 0.8 {ratio} Low 0.9-2.4 [facility] Comment on above: Performed By: #### L 501.9520, L500.4050, L506.0400, L501.73732, L100.0100 ####[facility] [address] [place], [address] ALK P 90 U/L Normal 45-117 [facility] Comment on above: Performed By: #### L 501.9520, L500.4050, L506.0400, L501.11510, L100.0100 ####[facility] [address] [place], [address] ALT [Catalytic activity/Vol] 13 U/L Normal 13-56 [facility] Comment on above: Performed By: #### L 501.9520, L500.4050, L506.0400, L501.45176, L100.0100 ####[facility] [address] [place], [address] AST [Catalytic activity/Vol] 16 U/L Normal 15-37 [facility] Comment on above: Performed By: #### L 501.9520, L500.4050, L506.0400, L501.66928, L100.0100 ####[facility] [address] [place], [address] Bilirubin [Mass/Vol] 0.20 mg/dL Normal 0.20-1.00 [facility] Comment on above: Result Comment: For patients on eltrombopag therapy, use of Dimension [place] TBIL is not recommended. Performed By: #### L 501.9520, L500.4050, L506.0400, L501.54373, L100.0100 ####[facility] [address] [place], [address] BUN/CRE 18.8 RATIO Normal 10-20 [facility] Comment on above: Performed By: #### L 501.9520, L500.4050, L506.0400, L501.78246, L100.0100 ####[facility] [address] [place], [address] CA,Total 8.8 mg/dL Normal 8.5-10.1 [facility] Comment on above: Performed By: #### L 501.9520, L500.4050, L506.0400, L501.40808, L100.0100 ####[facility] [address] [place], [address] Chloride [Moles/Vol] 106 mmol/L Normal 98-107 [facility] Comment on above: Performed By: #### L 501.9520, L500.4050, L506.0400, L501.56986, L100.0100 ####[facility] [address] [place], [address] CO2 [Moles/Vol] 27.0 mmol/L Normal 21.0-32.0 [facility] Comment on above: Performed By: #### L 501.9520, L500.4050, L506.0400, L501.50891, L100.0100 ####[facility] [address] [place], [address] Creatinine [Mass/Vol] 0.80 mg/dL Normal 0.55-1.02 [facility] Comment on above: Result Comment: The validity of the calculated GFR GFRAA in patients over 70 years has not been determined. Clinical correlation is essential. Performed By: #### L 501.9520, L500.4050, L506.0400, L501.85649, L100.0100 ####[facility] [address] [place], [address] EST GFR - AA 91 mL/min Normal >60 [facility] Comment on above: Result Comment: Afri can Latvian GFR Calc Performed By: #### L 501.9520, L500.4050, L506.0400, L501.61226, L100.0100 ####[facility] [address] [place], [address] GAP 6 Normal 5-15 [facility] Comment on above: Performed By: #### L 501.9520, L500.4050, L506.0400, L501.09982, L100.0100 ####[facility] [address] [place], [address] GFR/1.73 sq M.predicted among non-blacks MDRD (S/P/Bld) [Vol rate/Area] 75 mL/min/{1.73_m2} Normal >60 [facility] Comment on above: Result Comment: Non- GFR Calc Performed By: #### L 501.9520, L500.4050, L506.0400, L501.93965, L100.0100 ####[facility] [address] [place], [address] Globulin (S) [Mass/Vol] 4.1 g/dL Normal 2.2-4.2 [facility] Comment on above: Performed By: #### L 501.9520, L500.4050, L506.0400, L501.02095, L100.0100 ####[facility] [address] [place], [address] Glucose [Mass/Vol] 99 mg/dL Normal 74-106 [facility] Comment on above: Performed By: #### L 501.9520, L500.4050, L506.0400, L501.14211, L100.0100 ####[facility] [address] [place], [address] Potassium [Moles/Vol] 4.0 mmol/L Normal 3.5-5.1 [facility] Comment on above: Performed By: #### L 501.9520, L500.4050, L506.0400, L501.91222, L100.0100 ####[facility] [address] [place], [address] Sodium [Moles/Vol] 138 mmol/L Normal 136-145 [facility] Comment on above: Performed By: #### L 501.9520, L500.4050, L506.0400, L501.06248, L100.0100 ####[facility] [address] [place], [address] T PROT 7.5 g/dL Normal 6.4-8.2 [facility] Comment on above: Performed By: #### L 501.9520, L500.4050, L506.0400, L501.03525, L100.0100 ####[facility] [address] [place], [address] Urea nitrogen [Mass/Vol] 15 mg/dL Normal 7-18 [facility] Comment on above: Performed By: #### L 501.9520, L500.4050, L506.0400, L501.44163, L100.0100 ####[facility] [address] [place], [address] Free T3on 02-28-2024 Free T3 [Mass/Vol] 2.4 pg/mL Normal 2.18-3.98 [facility] Comment on above: Performed By: #### L 501.9520, L500.4050, L506.0400, L501.07871, L100.0100 ####[facility] [address] [place], [address] T4 Free Directon 02-28-2024 T4 FREE DIRECT 1.02 ng/dL Normal 0.76-1.46 [facility] Comment on above: Performed By: #### L 501.9520, L500.4050, L506.0400, L501.64093, L100.0100 ####[facility] [address] [place], [address] Thyroid Stim Hormone (TSH)on 02-28-2024 TSH 2.440 uIU/mL Normal 0.358-3.74 0 [facility] Comment on above: Performed By: #### L 501.9520, L500.4050, L506.0400, L501.76093, L100.0100 ####[facility] [address] [place], [address] 12 Lead EKGon 01-05-2024 12 Lead EKG [facility] Cardiovascular Services [address] [place] [address] 12 Lead EKG 01/05/24 1837 MR#: [id number] Acct: [id number] Name: NENA KRISHNAN Rep #: [id number] : 1955 68 From: Kyle Phillip MD Attending Dr: Status: DEP ER Ordering Dr: Augusto Kingston DO Date: 01/05/24 Location: ED Sex: F C Admitted: Test Reason : PAIN Blood Pressure : / mmHG Vent. Rate : 063 BPM Atrial Rate : 063 BPM P-R Int : 184 ms QRS Dur : 076 ms QT Int : 470 ms P-R-T Axes : 013 041 045 degrees QTc Int : 480 ms Normal sinus rhythm Normal ECG Confirmed by KYLE PHILLIP MD ([id number]), science editor DEANN PIERRE ([id number]) on 01/09/2024 2:10:41 PM Referred By: Confirmed By:KYLE PHILLIP MD 01/09/24 1410 Date Kyle Phillip MD CC: Dr. Olivia Gates DO; Dr. Augusto Kingston DO Signed Normal [facility] Basic Metabolic Profile (BMP )on 01-05-2024 BUN/CRE 19.4 RATIO Normal 10-20 [facility] Comment on above: Order Comment: 1Y Performed By: #### L 500.3400, L500.2500, L501.5425, L501.2450 ####[facility] [address] [place], [address] CA,Total 8.6 mg/dL Normal 8.5-10.1 [facility] Comment on above: Order Comment: 1Y Performed By: #### L 500.3400, L500.2500, L501.5425, L501.2450 ####[facility] [address] [place], [address] Chloride [Moles/Vol] 107 mmol/L Normal 98-107 [facility] Comment on above: Order Comment: 1Y Performed By: #### L 500.3400, L500.2500, L501.5425, L501.2450 ####[facility] [address] [place], [address] CO2 [Moles/Vol] 28.0 mmol/L Normal 21.0-32.0 [facility] Comment on above: Order Comment: 1Y Performed By: #### L 500.3400, L500.2500, L501.5425, L501.2450 ####[facility] [address] [place], [address] Creatinine [Mass/Vol] 0.82 mg/dL Normal 0.55-1.02 [facility] Comment on above: Order Comment: 1Y Result Comment: The validity of the calculated GFR GFRAA in patients over 70 years has not been determined. Clinical correlation is essential. Performed By: #### L 500.3400, L500.2500, L501.5425, L501.2450 ####[facility] [address] [place], [address] ECRCL 75.95 ml/min Normal [facility] Comment on above: Order Comment: 1Y Performed By: #### L 500.3400, L500.2500, L501.5425, L501.2450 ####[facility] [address] [place], [address] EST GFR - AA 88 mL/min Normal >60 [facility] Comment on above: Order Comment: 1Y Result Comment: Afri can Latvian GFR Calc Performed By: #### L 500.3400, L500.2500, L501.5425, L501.2450 ####[facility] [address] [place], [address] GAP 5 Normal 5-15 [facility] Comment on above: Order Comment: 1Y Performed By: #### L 500.3400, L500.2500, L501.5425, L501.2450 ####[facility] [address] [place], [address] GFR/1.73 sq M.predicted among non-blacks MDRD (S/P/Bld) [Vol rate/Area] 73 mL/min/{1.73_m2} Normal >60 [facility] Comment on above: Order Comment: 1Y Result Comment: Non- GFR Calc Performed By: #### L 500.3400, L500.2500, L501.5425, L501.2450 ####[facility] [address] [place], [address] Glucose [Mass/Vol] 101 mg/dL Normal 74-106 [facility] Comment on above: Order Comment: 1Y Result Comment: Fast ing Glucose result from 100 to 125 mg/dL suggests IMPAIRED HOMEOSTASIS per A.D.A. criteria. Performed By: #### L 500.3400, L500.2500, L501.5425, L501.2450 ####[facility] [address] [place], [address] Potassium [Moles/Vol] 3.8 mmol/L Normal 3.5-5.1 [facility] Comment on above: Order Comment: 1Y Performed By: #### L 500.3400, L500.2500, L501.5425, L501.2450 ####[facility] [address] [place], [address] Sodium [Moles/Vol] 140 mmol/L Normal 136-145 [facility] Comment on above: Order Comment: 1Y Performed By: #### L 500.3400, L500.2500, L501.5425, L501.2450 ####[facility] [address] [place], [address] Urea nitrogen [Mass/Vol] 16 mg/dL Normal 7-18 [facility] Comment on above: Order Comment: 1Y Performed By: #### L 500.3400, L500.2500, L501.5425, L501.2450 ####[facility] [address] [place], [address] CBC W/Diff, Automatedon 09-2 -2023 Absolute Lymph 3.79 X10 3/uL Normal 0.83-4.51 [facility] Comment on above: Performed By: #### L 100.0100 #### [facility] Laboratory [address] [place], [address] Absolute Neut 6.3 X10 3/uL Normal 2.0-7.7 [facility] Comment on above: Performed By: #### L 100.0100 #### [facility] [facility] [address] [place], [address] Basophils/100 WBC (Bld) 0.6 % Normal 0-1 [facility] Comment on above: Performed By: #### L 100.0100 #### [facility] [address] [place], [address] Eosinophils/100 WBC (Bld) 1.7 % Normal 0-5 [facility] Comment on above: Performed By: #### L 100.0100 #### [facility] [address] [place], [address] Erythrocyte distribution width (RBC) [Ratio] 15.8 % High 11.6-14.6 [facility] Comment on above: Performed By: #### L 100.0100 #### [facility] [address] [place], [address] Hematocrit (Bld) [Volume fraction] 37.9 % Normal 37-47 [facility] Comment on above: Performed By: #### L 100.0100 #### [facility] [address] [facility] [place], [address] Hemoglobin (Bld) [Mass/Vol] 11.5 g/dL Low 12.0-15.0 [facility] Comment on above: Performed By: #### L 100.0100 #### [facility] [address] [facility] [place], [address] IG% 0.400 Normal 0.0-0.9 [facility] Comment on above: Result Comment: IG% - Immature Granulocytes (promyelocytes, myelocytes and metamyelocytes) > 1% indicates that a LEFT SHIFT is Present. Performed By: #### L 100.0100 #### [facility] [address] [place], [address] Lymphocytes/100 WBC (Bld) 33.9 % Normal 19-41 [facility] Comment on above: Performed By: #### L 100.0100 #### [facility] [address] [place], [address] MCH (RBC) [Entitic mass] 24.8 pg Low 27.0-32.0 [facility] Comment on above: Performed By: #### L 100.0100 #### [facility] [address] [place], [address] MCHC (RBC) [Mass/Vol] 30.3 g/dL Low 32-36 [facility] Comment on above: Performed By: #### L 100.0100 #### [facility] [address] [place], [address] MCV (RBC) [Entitic vol] 81.7 fL Normal 81-99 [facility] Comment on above: Performed By: #### L 100.0100 #### [facility] [address] [place], [address] Monocytes/100 WBC (Bld) 6.9 % Normal 0-10 [facility] Comment on above: Performed By: #### L 100.0100 #### [facility] [place], [address] Neutrophils/100 WBC (Bld) 56.5 % Normal 47-70 [facility] Comment on above: Performed By: #### L 100.0100 #### [facility] [address] [place], [address] Nucleated RBC (Bld) [#/Vol] 0 10*3/uL Normal 0-5 [facility] Comment on above: Performed By: #### L 100.0100 #### [facility] [address] [place], [address] Platelet mean volume (Bld) [Entitic vol] 9.3 fL Normal 6.2-12.0 [facility] Comment on above: Performed By: #### L 100.0100 #### [facility] [address] [place], [address] Platelets (Bld) [#/Vol] 333 10*3/uL Normal 150-450 [facility] Comment on above: Performed By: #### L 100.0100 #### [facility] [address] [place], [address] RBC (Bld) [#/Vol] 4.64 10*6/uL Normal 4.2-5.4 [facility] Comment on above: Performed By: #### L 100.0100 #### [facility] [address] [place], [address] RDW SD 46.5 fl High 35.1-43.9 [facility] Comment on above: Performed By: #### L 100.0100 #### [facility] [address] [place], [address] WBC (Bld) [#/Vol] 11.2 10*3/uL High 4.4-11.0 [facility] Comment on above: Performed By: #### L 100.0100 #### [facility] [address] [place], [address] Chest 1 View (Portable)on Chest 1 View (Portable) [facility] Imaging Services [address] [place] [address] Chest 1 View (Portable) MR#: [id number] Acct: [id number] Name: NENA KRISHNAN Rep #: [id number] : 1955 F 68 From: Gumaro Philip MD PCP: Dr. Olivia Gates, Status: [facility] ER Study: Chest 1 View (Portable) Date of Exam: 01/05/24 Exam# [id number] Ordering Dr: Augusto Kingston DO :[id number] STUDY: X-RAY CHEST REASON FOR EXAM: Female, 68 years old. chest pain TECHNIQUE: AP portable COMPARISON: August 21, 2023 FINDINGS: Elevated right hemidiaphragm and minor basilar atelectasis.. There is no demonstrated pleural abnormality. Normal size heart. Normal mediastinum and dave. Normal visualized pulmonary arteries. Mildly calcified aortic arch and descending thoracic aorta. Dorsal spine and shoulders demonstrate degenerative change. Normal visualized ribs, and clavicles. There is no demonstrated abnormality of the visualized soft tissue structures of the upper abdomen. RAD/Chest 1 View (Portable) IMPRESSION: Elevated right hemidiaphragm and minor basilar atelectasis. Electronically Signed: Gumaro Philip MD at 19:01 EDT , CC: Dr. Olivia Gates DO; Dr. Augusto Kingston DO Mop Worker: Signed Normal [facility] D-Dimer Quantitative (DVT/PE )on 01-05-2024 D-DIMER QUANT 0.57 FEU/ug/m Invalid Interpretation Code 0.27-0.49 [facility] Comment on above: Result Comment: CRIT ICAL VALUE CALLED TO ANNE MARIE ANDERSON RN ER 01/05/241928 Mino Ramirez. RESULTS READ BACK BY SAME . D-Dimer ELEVATED (>0.49): Additional studies and clinical assessments are indicated to conclude diagnosis of: Deep Vein Thrombosis (DVT) or Pulmonary Embolism (PE) Performed By: #### L 300.8000 ####[facility] [address] [facility] [place], [address] Emergency Department Summary on 01-05-2024 Emergency Department Summary [facility] Medical Records Department [address] [facility] [place] [address] Emergency Department Summary 01/05/24 MR#: [id number] Acct: [id number] Name: NENA KRISHNAN Rep #: [id number] : 1955 68 From: Augusto Kingston DO PCP: Dr. Olivia Gates DO Status:REG ER Location: ED HPI History of Present Illness Chief Complaint: Other, Pain/Inj PFSH [facility] Medical History Anxiety Asthma Bronchitis Chronic back pain Depression GERD (gastroesophageal reflux disease) HTN (hypertension) Hypothyroidism RAJNI (obstructive sleep apnea) Pulmonary hypertension Rheumatoid arthritis Home Medications ???Medication ???Instructions ???Recorded ???Last Taken ???Type paroxetine HCl 40 mg tablet (Paxil) 40 mg PO DAILY depression 01/29/13 12/22/21 History trazodone 50 mg tablet 100 mg PO QHS sleep 01/29/13 12/21/21 History esomeprazole magnesium 40 mg 40 mg PO BID GERD 05/16/14 12/22/21 History capsule,delayed release (Nexium) lorazepam 1 mg tablet 2 mg PO BID anxiety 10/11/16 12/22/21 History cholecalciferol (vitamin D3) 1,250 50,000 units PO KEITA Vit D deficiency 05/20/17 12/19/21 History mcg (50,000 unit) capsule albuterol sulfate 90 mcg/actuation 1 - 2 puff inhalation Q6H PRN PRN 05/23/17 06/16/18 Rx aerosol inhaler Asthma ##1 hydrocodone-acetaminophen 5-325mg 1 ea PO TID PRN Pain 06/22/17 12/21/21 History 5mg-325mg ([place]) budesonide 180 mcg/actuation 2 puff inhalation BID SOB/wheezing 12/13/17 12/21/21 History breath activated powder inhaler (Pulmicort Flexhaler) levothyroxine 50 mcg tablet 50 mcg PO DAILY thyroid 12/13/17 12/21/21 History losartan 50 mg tablet 50 mg PO DAILY blood pressure 07/04/20 12/22/21 History montelukast 10 mg tablet 10 mg PO DAILY allergies 07/04/20 12/22/21 History albuterol sulfate 90 mcg/actuation 1 - 2 puff inhalation Q4H PRN PRN 04/13/21 Unknown Rx aerosol inhaler (Ventolin HFA) Wheezing #8.5 grams atorvastatin 40 mg tablet 40 mg PO QHS cholesterol 12/22/21 12/21/21 History azelastine 137 mcg (0.1 %) nasal 2 spray intranasal BID 12/22/21 12/21/21 History spray antihistamine Allergy/AdvReac Type Severity Reaction Status Date / Time No Known Allergies Allergy Verified 01/05/24 16:16 Family History Father Cancer Mother Cancer Sister Cancer Brother Cancer Surgical History History of back surgery History of cholecystectomy History of hernia repair History of hysterectomy Social History Smoking Status: Never smoker second hand exposure: No alcohol intake: never substance use type: does not use EXAM Physical Exam Const Vital Signs: 01/05/24 16:16 01/05/24 17:22 01/05/24 18:21 Temperature 96 F L Temperature Source Temporal Pulse Rate 70 Respiratory Rate 18 Respiratory Effort Normal Respiratory Pattern Normal Blood Pressure 136/70 H Blood Pressure Mean 92 Pulse Ox 95 97 Oxygen Delivery Method Room Air Room Air 01/05/24 19:18 01/05/24 20:24 Temperature Temperature Source Pulse Rate 64 69 Respiratory Rate 17 18 Respiratory Effort Respiratory Pattern Blood Pressure 129/62 H 158/90 H Blood Pressure Mean 84 112 Pulse Ox 96 95 Oxygen Delivery Method Room Air Room Air MDM MDM MDM Narrative Medical decision making narrative: HISTORY OF PRESENT ILLNESS: 68-year-old female presents with multiple complaints. She states she has had 1 month of pain that is distributed along bilateral rib margins and radiates up into her neck. She notes the pain is constant with no alleviating exacerbating features. Denies vomiting. Notes he is history of GERD and thinks it could be her esophagus. Denies drinking alcohol. Denies syncope. The patient denies recent surgery in the last 4 weeks or immobilization in the last 3 days, denies previous diagnosis of DVT or PE, hemoptysis, unilateral leg swelling or malignancy with treatment the last 6 months or palliative. No estrogen use noted. Patient denies sudden onset of pain, no tearing sensation, no migratory symptoms, no new numbness, weakness or loss of sensation. Patient denies family history or personal history of Connective tissue disorders (Marfan's Syndrome, Jennifer Danlos etc). Denies any chest pain or shortness of breath. REVIEW OF SYSTEMS: Pertinent positives: Rib pain, chest pain Pertinent negatives: Vomiting, dark stools, syncope, focal weakness PHYSICAL EXAM: Nursing triage notes reviewed, Vital signs reviewed Constitutional: please see mdm HENT: MMM Eyes: Pupils equal round and reactive to light, Extraocular muscles (more content not included)... Normal [facility] L501.4020on 01-05-2024 TROPONIN-I HS 7 pg/mL Normal 3.0-54.0 [facility] Comment on above: Result Comment: Ivan koroma Note: New Test Units and Gender Specific Reference Ranges. For more information see Policy Stat Procedure [place] High Sensitivity Troponin (TNIH) and attachments. Performed By: #### L 501.4020 ####[facility] [address] [place], [place], [phone] L501.5425on 01-05-2024 TROPONIN-I HS 7 pg/mL Normal 3.0-54.0 [facility] Comment on above: Order Comment: 1Y Result Comment: Ivan koroma Note: New Test Units and Gender Specific Reference Ranges. For more information see Policy Stat Procedure [place] High Sensitivity Troponin (TNIH) and attachments. Performed By: #### L 500.3400, L500.2500, L501.5425, L501.2450 ####[facility] [address] [place], [place], [id number] Lipaseon 01-05-2024 Lipase [Catalytic activity/Vol] 38 U/L Normal 13-75 [facility] Comment on above: Order Comment: 1Y Result Comment: Ivan koroma note: LIPASE revised reference range effective 22. New Lipase methodology. Expected to produce lower values than the previous assay method. NEW Reference Range: 13 - 75 U/L Performed By: #### L 500.3400, L500.2500, L501.5425, L501.2450 ####[facility] [address] [place], [address] Liver Profileon 01-05-2024 Albumin [Mass/Vol] 3.2 g/dL Normal 3.2-5.0 [facility] Comment on above: Order Comment: 1Y Performed By: #### L 500.3400, L500.2500, L501.5425, L501.2450 ####[facility] [address] [place], [address] ALK P 79 U/L Normal 45-117 [facility] Comment on above: Order Comment: 1Y Performed By: #### L 500.3400, L500.2500, L501.5425, L501.2450 ####[facility] [address] [place], [address] ALT [Catalytic activity/Vol] 14 U/L Normal 13-56 [facility] Comment on above: Order Comment: 1Y Performed By: #### L 500.3400, L500.2500, L501.5425, L501.2450 ####[facility] [address] [place], [address] AST [Catalytic activity/Vol] 15 U/L Normal 15-37 [facility] Comment on above: Order Comment: 1Y Performed By: #### L 500.3400, L500.2500, L501.5425, L501.2450 ####[facility] [address] [place], [address] Bilirubin [Mass/Vol] 0.20 mg/dL Normal 0.20-1.00 [facility] Comment on above: Order Comment: 1Y Result Comment: For patients on eltrombopag therapy, use of Dimension [place] TBIL is not recommended. Performed By: #### L 500.3400, L500.2500, L501.5425, L501.2450 ####[facility] [address] [place], [address] Bilirubin.direct [Mass/Vol] 0.08 mg/dL Normal 0.00-0.30 [facility] Comment on above: Order Comment: 1Y Performed By: #### L 500.3400, L500.2500, L501.5425, L501.2450 ####[facility] [address] [place], [address] Globulin (S) [Mass/Vol] 4.0 g/dL Normal 2.2-4.2 [facility] Comment on above: Order Comment: 1Y Performed By: #### L 500.3400, L500.2500, L501.5425, L501.2450 ####[facility] [address] [place], [address] T PROT 7.2 g/dL Normal 6.4-8.2 [facility] Comment on above: Order Comment: 1Y Performed By: #### L 500.3400, L500.2500, L501.5425, L501.2450 ####[facility] [address] [place], [address] Absolute lymphocyte countOrd ered By: Yvon Jacobo on 08-21-2023 Lymphocytes Auto (Unsp spec) [#/Vol] 4.10 10*3/uL 0.83-4.51 [facility] Automated lymphocyte count a s percentage of total leukocytesOrdered By: Yvon Jacoob on 08-21-2023 Lymphocytes/100 WBC Auto (Unsp spec) 40.5 % 19-41 [facility] Basophil percentageOrdered B y: Yvon Jacobo on 08-21-2023 Basophils/100 WBC (Bld) 0.6 % 0-1 [facility] Chloride [Moles/Vol] 109 mmol/L 98-107 [facility] Eosinophils/100 WBC (Bld) 2.0 % 0-5 [facility] Glucose [Mass/Vol] 114 mg/dL 74-106 [facility] Comment on above: Fasting Glucose resu lt from 100 to 125 mg/dL suggests IMPAIRED HOMEOSTASIS per A.D.A. criteria. Hemoglobin (Bld) [Mass/Vol] 11.4 g/dL 12.0-15.0 [facility] Monocytes/100 WBC (Bld) 6.8 % 0-10 [facility] Neutrophils (Bld) [#/Vol] 5.0 10*3/uL 2.0-7.7 [facility] Neutrophils/100 WBC (Bld) 49.7 % 47-70 [facility] Potassium [Moles/Vol] 3.7 mmol/L 3.5-5.1 [facility] Sodium [Moles/Vol] 140 mmol/L 136-145 [facility] WBC (Bld) [#/Vol] 10.1 10*3/uL 4.4-11.0 [facility] Determination of erythrocyte mean corpuscular volume (MCV)Ordered By: Yvon Jacobo on 08-21-2023 MCV (RBC) [Entitic vol] 82.0 fL 81-99 [facility] Erythrocyte distribution wid th ratioOrdered By: Yvon Jacobo on 08-21-2023 Erythrocyte distribution width (RBC) [Ratio] 16.0 % 11.6-14.6 [facility] Erythrocyte distribution wid th standard deviationOrdered By: Yvon Jacobo on 08-21-2023 Erythrocyte distribution width (RBC) [Entitic vol] 47.8 fL 35.1-43.9 [facility] Hematocrit Auto (Bld) [Volum e fraction]Ordered By: Yvon Jacobo on 08-21-2023 Hematocrit (Bld) [Volume fraction] 36.5 % 37-47 [facility] Immature granulocytes/100 WB C Auto (Bld)Ordered By: Yvon Jacobo on 08-21-2023 Immature granulocytes/100 WBC (Bld) 0.400 % 0.0-0.9 [facility] Comment on above: IG% - Immature Granu locytes (promyelocytes, myelocytes and metamyelocytes) > 1% indicates that a LEFT SHIFT is Present. Laboratory - Chemistry and C hemistry - challengeOrdered By: Yvon Jacobo on 08-21-2023 CO2 [Moles/Vol] 26.0 mmol/L 21.0-32.0 [facility] Natriuretic peptide B (Bld) [Mass/Vol] 43.8 pg/mL 0-100 [facility] Urea nitrogen/Creatinine [Mass ratio] 19.6 mg/mg 10-20 [facility] Laboratory - Hematology and Cell countsOrdered By: Yvon Jacobo on 08-21-2023 MCH (RBC) [Entitic mass] 25.6 pg 27.0-32.0 [facility] MCHC (RBC) [Mass/Vol] 31.2 g/dL 32-36 [facility] Nucleated RBC/100 WBC (Bld) [Ratio] 0 % 0-5 [facility] Platelet mean volume (Bld) [Entitic vol] 9.3 fL 6.2-12.0 [facility] Platelets (Bld) [#/Vol] 333 10*3/uL 150-450 [facility] No Panel InformationOrdered By: Yvon Jacobo on 08-21-2023 Estimated GFR (MDRD) Amer 83 mL/min >60 [facility] Comment on above: GFR Calc Estimated GFR (MDRD) Non-Af Amer 69 mL/min >60 [facility] Comment on above: Non- GFR Calc Troponin I High Sensitivity 4 pg/mL 3.0-54.0 [facility] Comment on above: Please Note: New Beatriz t Units and Gender Specific Reference Ranges. For more information see Policy Stat Procedure [place] High Sensitivity Troponin (TNIH) and attachments. RBC Auto (Bld) [#/Vol]Ordere d By: Yvon Jacobo on 08-21-2023 RBC (Bld) [#/Vol] 4.45 10*6/uL 4.2-5.4 [facility] Serum or plasma calcium swati urement (mass/volume)Ordered By: Yvon Jacobo on 08-21-2023 Calcium [Mass/Vol] 8.6 mg/dL 8.5-10.1 [facility] Serum or plasma creatinine m easurement (mass/volume)Ordered By: Yvon Jacobo on 08-21-2023 Creatinine [Mass/Vol] 0.87 mg/dL 0.55-1.02 [facility] Comment on above: The validity of the calculated GFR & GFRAA in patients over 70 years has not been determined. Clinical correlation is essential. Serum or plasma urea nitroge n measurement (mass/volume)Ordered By: Yvon Jacobo on 08-21-2023 Urea nitrogen [Mass/Vol] 17 mg/dL 7-18 [facility] Thin prep Papanicolaou smear with manual screeningOrdered By: Yvon Jacobo on 08-21-2023 Thin prep Papanicolaou smear with manual screening 5 5-15 [facility] Absolute lymphocyte countOrd ered By: Olivia Gates on 04-24-2023 Lymphocytes Auto (Unsp spec) [#/Vol] 2.25 10*3/uL 0.83-4.51 [facility] Basophil percentageOrdered B y: Olivia Gates on 04-24-2023 Basophils/100 WBC (Bld) 0.6 % 0-1 [facility] Bilirubin [Mass/Vol] 0.20 mg/dL 0.20-1.00 [facility] Comment on above: For patients on eltr ombopag therapy, use of Dimension [place] TBIL is not recommended. Chloride [Moles/Vol] 106 mmol/L 98-107 [facility] Cholesterol [Mass/Vol] 188 mg/dL <200 [facility] Comment on above: <200 mg/dL Desirable 200-240 mg/dL Borderline >240 mg/dL High Risk Eosinophils/100 WBC (Bld) 1.6 % 0-5 [facility] Glucose [Mass/Vol] 101 mg/dL 74-106 [facility] Comment on above: Fasting Glucose resu lt from 100 to 125 mg/dL suggests IMPAIRED HOMEOSTASIS per A.D.A. criteria. Neutrophils (Bld) [#/Vol] 6.5 10*3/uL 2.0-7.7 [facility] Neutrophils/100 WBC (Bld) 67.3 % 47-70 [facility] Potassium [Moles/Vol] 4.1 mmol/L 3.5-5.1 [facility] Protein [Mass/Vol] 7.2 g/dL 6.4-8.2 [facility] Sodium [Moles/Vol] 139 mmol/L 136-145 [facility] Triglyceride [Mass/Vol] 184 mg/dL <199 [facility] Comment on above: The drugs N-Acetylcy steine and Metamizole may falsely depress this assay.Serum Triglycerides Reference Interval Normal <150 mg/dL Borderline high 150 - 199 mg/dL High 200 - 499 mg/dL Very High > or = 500 mg/dL WBC (Bld) [#/Vol] 9.6 10*3/uL 4.4-11.0 [facility] Blood erythrocytes count (nu mber/volume)Ordered By: Olivia Gates on 04-24-2023 RBC (Bld) [#/Vol] 4.71 10*6/uL 4.2-5.4 [facility] Blood hemoglobin measurement (mass/volume)Ordered By: Olivia Gates on 04-24-2023 Hemoglobin (Bld) [Mass/Vol] 11.9 g/dL 12.0-15.0 [facility] Blood lymphocytes/100 leukoc ytesOrdered By: Olivia Gates on 04-24-2023 Lymphocytes/100 WBC (Bld) 23.4 % 19-41 [facility] Blood monocytes/100 leukocyt esOrdered By: Olivia Gates on 04-24-2023 Monocytes/100 WBC (Bld) 6.7 % 0-10 [facility] Blood platelet mean volumeOr dered By: Olivia Gates on 04-24-2023 Platelet mean volume (Bld) [Entitic vol] 9.8 fL 6.2-12.0 [facility] Determination of erythrocyte mean corpuscular volume (MCV)Ordered By: Olivia Gates on 04-24-2023 MCV (RBC) [Entitic vol] 83.0 fL 81-99 [facility] Erythrocyte sedimentation ra teOrdered By: Olivia Gates on 04-24-2023 ESR (Bld) [Velocity] 46 mm/h 0-30 [facility] Hematocrit Auto (Bld) [Volum e fraction]Ordered By: Olivia Gates on 04-24-2023 Hematocrit (Bld) [Volume fraction] 39.1 % 37-47 [facility] Laboratory - Chemistry and C hemistry - challengeOrdered By: Olivia Gates on 04-24-2023 ALP [Catalytic activity/Vol] 83 U/L 45-117 [facility] ALT [Catalytic activity/Vol] 17 U/L 13-56 [facility] CO2 [Moles/Vol] 26.0 mmol/L 21.0-32.0 [facility] Free T4 [Mass/Vol] 0.86 ng/dL 0.76-1.46 [facility] Globulin (S) [Mass/Vol] 3.9 g/dL 2.2-4.2 [facility] Urea nitrogen/Creatinine [Mass ratio] 16.5 mg/mg 10-20 [facility] Laboratory - Hematology and Cell countsOrdered By: Olivia Gates on 04-24-2023 Erythrocyte distribution width (RBC) [Entitic vol] 46.6 fL 35.1-43.9 [facility] Erythrocyte distribution width (RBC) [Ratio] 15.4 % 11.6-14.6 [facility] Immature granulocytes/100 WBC (Bld) 0.400 % 0.0-0.9 [facility] Comment on above: IG% - Immature Granu locytes (promyelocytes, myelocytes and metamyelocytes) > 1% indicates that a LEFT SHIFT is Present. MCH (RBC) [Entitic mass] 25.3 pg 27.0-32.0 [facility] Nucleated RBC/100 WBC (Bld) [Ratio] 0 % 0-5 [facility] MCHC Auto (RBC) [Mass/Vol]Or dered By: Olivia Gates on 04-24-2023 MCHC (RBC) [Mass/Vol] 30.4 g/dL 32-36 [facility] No Panel InformationOrdered By: Olivia Gates on 04-24-2023 Estimated GFR (MDRD) Amer 79 mL/min >60 [facility] Comment on above: GFR Calc Estimated GFR (MDRD) Non-Af Amer 65 mL/min >60 [facility] Comment on above: Non- GFR Calc Free Triiodothyronine (T3) pg/dL 2.0 pg/mL 2.18-3.98 [facility] Thyroid Stimulating Hormone (TSH) 5.99 uIU/mL 0.358-3.74 [facility] Platelets bldOrdered By: Kaylee Gates on 04-24-2023 Platelets (Bld) [#/Vol] 342 10*3/uL 150-450 [facility] Serum or plasma C reactive p rotein measurement (mass/volume)Ordered By: Olivia Gates on 04-24-2023 CRP [Mass/Vol] 4.19 mg/L 0.0-3.0 [facility] Comment on above: C-Reactive Protein ( CRP) provides useful information for thediagnosis, therapy and monitoring of inflammatory processesand associated diseases. For the evaluation of Relative Riskfor Cardiovascular Disease, a High Sensitivity CRP (HSCRP)should be ordered. Serum or plasma albumin swati urement (mass/volume)Ordered By: Olivia Gates on 04-24-2023 Albumin [Mass/Vol] 3.3 g/dL 3.2-5.0 [facility] Serum or plasma albumin/glob ulin mass ratioOrdered By: Olivia Gates on 04-24-2023 Albumin/Globulin [Mass ratio] 0.8 {ratio} 0.9-2.4 [facility] Serum or plasma calcium swati urement (mass/volume)Ordered By: Olivia Gates on 04-24-2023 Calcium [Mass/Vol] 8.6 mg/dL 8.5-10.1 [facility] Serum or plasma cholesterol in HDL measurement (mass/volume)Ordered By: Olivia Gates on 04-24-2023 Cholesterol in HDL [Mass/Vol] 54 mg/dL >40 [facility] Comment on above: The drugs N-Acetylcy steine and Metamizole may falsely depress this assay. Reference Range HDL <40 mg/dL Low HDL Cholesterol HDL >or= 60 mg/dL High HDL Cholesterol Serum or plasma cholesterol in VLDL measurement (mass/volume)Ordered By: Olivia Gates on 04-24-2023 Cholesterol in VLDL [Mass/Vol] 37 mg/dL 5-40 [facility] Serum or plasma creatinine m easurement (mass/volume)Ordered By: Olivia Gates on 04-24-2023 Creatinine [Mass/Vol] 0.91 mg/dL 0.55-1.02 [facility] Comment on above: The validity of the calculated GFR & GFRAA in patients over 70 years has not been determined. Clinical correlation is essential. Serum or plasma low density lipoprotein (LDL) cholesterol measurement (mass/volume)Ordered By: Olivia Gates on 04-24-2023 Cholesterol in LDL [Mass/Vol] 97 mg/dL 0-130 [facility] Serum or plasma urea nitroge n measurement (mass/volume)Ordered By: Olivia Gates on 04-24-2023 Urea nitrogen [Mass/Vol] 15 mg/dL 7-18 [facility] Thin prep Papanicolaou smear with manual screeningOrdered By: Olivia Gates on 04-24-2023 Thin prep Papanicolaou smear with manual screening 15 U/L 15-37 [facility] Thin prep Papanicolaou smear with manual screening 7 5-15 [facility] Absolute lymphocyte countOrd ered By: Lisa Villagran on 02-24-2023 Lymphocytes Auto (Unsp spec) [#/Vol] 4.07 10*3/uL 0.83-4.51 [facility] Basophil percentageOrdered B y: Lisa Villagran on 02-24-2023 Basophil percentage 0 SEEN /hpf 0-5 [facility] Basophils/100 WBC (Bld) 0.8 % 0-1 [facility] Bilirubin [Mass/Vol] 0.20 mg/dL 0.20-1.00 [facility] Comment on above: For patients on eltr ombopag therapy, use of Dimension [place] TBIL is not recommended. Chloride [Moles/Vol] 108 mmol/L 98-107 [facility] Eosinophils/100 WBC (Bld) 1.3 % 0-5 [facility] Glucose [Mass/Vol] 103 mg/dL 74-106 [facility] Comment on above: Fasting Glucose resu lt from 100 to 125 mg/dL suggests IMPAIRED HOMEOSTASIS per A.D.A. criteria. Neutrophils (Bld) [#/Vol] 5.5 10*3/uL 2.0-7.7 [facility] Neutrophils/100 WBC (Bld) 52.1 % 47-70 [facility] Potassium [Moles/Vol] 3.6 mmol/L 3.5-5.1 [facility] Protein [Mass/Vol] 7.7 g/dL 6.4-8.2 [facility] Sodium [Moles/Vol] 141 mmol/L 136-145 [facility] WBC (Bld) [#/Vol] 10.6 10*3/uL 4.4-11.0 [facility] Bilirubin Test strip Ql (U)O rdered By: Lisa Villagran on 02-24-2023 Bilirubin Ql (U) Negative Negative [facility] Blood erythrocytes count (nu mber/volume)Ordered By: Lisa Villagran on 02-24-2023 RBC (Bld) [#/Vol] 5.13 10*6/uL 4.2-5.4 [facility] Blood hemoglobin measurement (mass/volume)Ordered By: Lisa Villagran on 02-24-2023 Hemoglobin (Bld) [Mass/Vol] 13.1 g/dL 12.0-15.0 [facility] Blood lymphocytes/100 leukoc ytesOrdered By: Lisa Villagran on 02-24-2023 Lymphocytes/100 WBC (Bld) 38.4 % 19-41 [facility] Blood monocytes/100 leukocyt esOrdered By: Lisa Villagran on 02-24-2023 Monocytes/100 WBC (Bld) 7.0 % 0-10 [facility] Blood platelet mean volumeOr dered By: Lisa Villagran on 02-24-2023 Platelet mean volume (Bld) [Entitic vol] 9.6 fL 6.2-12.0 [facility] Determination of erythrocyte mean corpuscular volume (MCV)Ordered By: Lisa Villagran on 02-24-2023 MCV (RBC) [Entitic vol] 82.7 fL 81-99 [facility] Hematocrit Auto (Bld) [Volum e fraction]Ordered By: Lisa Villagran on 02-24-2023 Hematocrit (Bld) [Volume fraction] 42.4 % 37-47 [facility] Ketones Test strip Ql (U)Ord ered By: Lisa Villagran on 02-24-2023 Ketones Ql (U) 5 mg/dl Negative [facility] Laboratory - Chemistry and C hemistry - challengeOrdered By: Lisa Villagran on 02-24-2023 ALP [Catalytic activity/Vol] 81 U/L 45-117 [facility] ALT [Catalytic activity/Vol] 20 U/L 13-56 [facility] CO2 [Moles/Vol] 28.0 mmol/L 21.0-32.0 [facility] Globulin (S) [Mass/Vol] 4.3 g/dL 2.2-4.2 [facility] Lipase [Catalytic activity/Vol] 25 U/L 13-75 [facility] Comment on above: Please note:LIPASE r evised reference range effective 22. New Lipase methodology. Expected to produce lower values than the previous assay method. NEW Reference Range: 13 - 75 U/L Urea nitrogen/Creatinine [Mass ratio] 17.1 mg/mg 10-20 [facility] Laboratory - Hematology and Cell countsOrdered By: Lisa Villagran on 02-24-2023 Erythrocyte distribution width (RBC) [Entitic vol] 48.0 fL 35.1-43.9 [facility] Erythrocyte distribution width (RBC) [Ratio] 15.8 % 11.6-14.6 [facility] Immature granulocytes/100 WBC (Bld) 0.400 % 0.0-0.9 [facility] Comment on above: IG% - Immature Granu locytes (promyelocytes, myelocytes and metamyelocytes) > 1% indicates that a LEFT SHIFT is Present. MCH (RBC) [Entitic mass] 25.5 pg 27.0-32.0 [facility] Nucleated RBC/100 WBC (Bld) [Ratio] 0 % 0-5 [facility] MCHC Auto (RBC) [Mass/Vol]Or dered By: Lisa Villagran on 02-24-2023 MCHC (RBC) [Mass/Vol] 30.9 g/dL 32-36 [facility] Mucus LM Ql (Urine sed)Order ed By: Lisa Villagran on 02-24-2023 Mucus Ql (Urine sed) 0 SEEN /hpf [facility] Nitrite Test strip Ql (U)Ord ered By: Lisa Villagran on 02-24-2023 Nitrite Ql (U) Negative Negative [facility] No Panel InformationOrdered By: Lisa Villagran on 02-24-2023 Estimated Creatinine Clearance Calc 47.89 ml/min [facility] Estimated GFR (MDRD) Amer 77 mL/min >60 [facility] Comment on above: GFR Calc Estimated GFR (MDRD) Non-Af Amer 63 mL/min >60 [facility] Comment on above: Non- GFR Calc Thyroid Stimulating Hormone (TSH) 3.50 uIU/mL 0.358-3.74 [facility] Troponin I High Sensitivity 7 pg/mL 3.0-54.0 [facility] Comment on above: Please Note: New Beatriz t Units and Gender Specific Reference Ranges. For more information see Policy Stat Procedure [place] High Sensitivity Troponin (TNIH) and attachments. Platelets bldOrdered By: Claire Villagran on 02-24-2023 Platelets (Bld) [#/Vol] 344 10*3/uL 150-450 [facility] Protein Test strip Ql (U)Ord ered By: Lisa Villagran on 02-24-2023 Protein Ql (U) Negative Negative [facility] Serum or plasma albumin swati urement (mass/volume)Ordered By: Lisa Villagran on 02-24-2023 Albumin [Mass/Vol] 3.4 g/dL 3.2-5.0 [facility] Serum or plasma albumin/glob ulin mass ratioOrdered By: Lisa Villagran on 02-24-2023 Albumin/Globulin [Mass ratio] 0.8 {ratio} 0.9-2.4 [facility] Serum or plasma calcium swati urement (mass/volume)Ordered By: Lisa Villagran on 02-24-2023 Calcium [Mass/Vol] 9.1 mg/dL 8.5-10.1 [facility] Serum or plasma creatinine m easurement (mass/volume)Ordered By: Lisa Villagran on 02-24-2023 Creatinine [Mass/Vol] 0.93 mg/dL 0.55-1.02 [facility] Comment on above: The validity of the calculated GFR & GFRAA in patients over 70 years has not been determined. Clinical correlation is essential. Serum or plasma urea nitroge n measurement (mass/volume)Ordered By: Lisa Villagran on 02-24-2023 Urea nitrogen [Mass/Vol] 16 mg/dL 7-18 [facility] Squamous epithelial cells de tection in urine sediment by light microscopyOrdered By: Lisa Villagran on 02-24-2023 Epithelial cells.squamous LM Ql (Urine sed) 0-5 SEEN /hpf 5-10 [facility] Thin prep Papanicolaou smear with manual screeningOrdered By: Lisa Villagran on 02-24-2023 Thin prep Papanicolaou smear with manual screening 20 U/L 15-37 [facility] Thin prep Papanicolaou smear with manual screening 5 5-15 [facility] Urine blood detectionOrdered By: Lisa Villagran on 02-24-2023 RBC Ql (U) Negative Negative [facility] RBC Ql (U) 0 SEEN /hpf 0-5 [facility] Urine clarityOrdered By: Claire Villagran on 02-24-2023 Clarity (U) Clear Clear [facility] Urine color determinationOrd ered By: Lisa Villagran on 02-24-2023 Color (U) Yellow Yellow [facility] Urine glucose detectionOrder ed By: Lisa Villagran on 02-24-2023 Glucose Ql (U) Normal mg/dl Normal [facility] Urine leukocyte esterase det ection by dipstickOrdered By: Lisa Villagran on 02-24-2023 Leukocyte esterase Test strip Ql (U) Negative Negative [facility] Urine pHOrdered By: Lisa rangel on 02-24-2023 pH (U) 5.0 [pH] 5.0 - 8.0 [facility] Urine sediment bacteria coun t by microscopy (number/high power field)Ordered By: Lisa Villagran on 02-24-2023 Bacteria LM.HPF (Urine sed) [#/Area] 0 /[HPF] None Seen [facility] Urine specific gravity measu rementOrdered By: Lisa Villagran on 02-24-2023 Specific gravity (U) [Rel density] 1.010 1.002-1.03 0 [facility] Urobilinogen Auto test strip Ql (U)Ordered By: Lisa Villagran on 02-24-2023 Urobilinogen Ql (U) Normal mg/dl Normal [facility] Culture, urineOrdered By: Dr Beatriz Abdalla on 06-14-2022 Bacteria identified Cx Nom (U) Positive [facility] Laboratory - Chemistry and C hemistry - challengeOrdered By: Dr. Gates on 06-13-2022 Free T4 [Mass/Vol] 1.07 ng/dL 0.76-1.46 [facility] No Panel InformationOrdered By: Dr. Gates on 06-13-2022 Free Triiodothyronine (T3) pg/dL 2.6 pg/mL 2.18-3.98 [facility] Thyroid Stimulating Hormone (TSH) 3.19 uIU/mL 0.358-3.74 [facility] Absolute lymphocyte countOrd ered By: Dr. Abdalla on 06-10-2022 Lymphocytes Auto (Unsp spec) [#/Vol] 5.20 10*3/uL 0.83-4.51 [facility] Basophil percentageOrdered B y: Dr. Abdalla on 06-10-2022 Basophil percentage 10-25 SEEN /hpf 0-5 [facility] Basophils/100 WBC (Bld) 0.5 % 0-1 [facility] Bilirubin [Mass/Vol] 0.20 mg/dL 0.20-1.00 [facility] Comment on above: For patients on eltr ombopag therapy, use of Dimension [place] TBIL is not recommended. Chloride [Moles/Vol] 105 mmol/L 98-107 [facility] Eosinophils/100 WBC (Bld) 2.6 % 0-5 [facility] Glucose [Mass/Vol] 103 mg/dL 74-106 [facility] Comment on above: Fasting Glucose resu lt from 100 to 125 mg/dL suggests IMPAIRED HOMEOSTASIS per A.D.A. criteria. Neutrophils (Bld) [#/Vol] 3.4 10*3/uL 2.0-7.7 [facility] Neutrophils/100 WBC (Bld) 35.3 % 47-70 [facility] Potassium [Moles/Vol] 3.9 mmol/L 3.5-5.1 [facility] Protein [Mass/Vol] 7.7 g/dL 6.4-8.2 [facility] Sodium [Moles/Vol] 139 mmol/L 136-145 [facility] WBC (Bld) [#/Vol] 9.5 10*3/uL 4.4-11.0 [facility] Bilirubin Test strip Ql (U)O rdered By: Dr. Abdalla on 06-10-2022 Bilirubin Ql (U) Negative Negative [facility] Blood erythrocytes count (nu mber/volume)Ordered By: Dr. Abdalla on 06-10-2022 RBC (Bld) [#/Vol] 4.89 10*6/uL 4.2-5.4 [facility] Blood hemoglobin measurement (mass/volume)Ordered By: Dr. Abdalla on 06-10-2022 Hemoglobin (Bld) [Mass/Vol] 12.5 g/dL 12.0-15.0 [facility] Blood lymphocytes/100 leukoc ytesOrdered By: Dr. Abdalla on 06-10-2022 Lymphocytes/100 WBC (Bld) 54.5 % 19-41 [facility] Blood manual differential co mment interpretation (narrative result)Ordered By: Dr. Abdalla on 06-10-2022 Manual differential comment Javier (Bld) [Interp] SCANNED [facility] Comment on above: LYMPHOCYTOSIS Blood monocytes/100 leukocyt esOrdered By: [address] Abdalla on 06-10-2022 Monocytes/100 WBC (Bld) 6.8 % 0-10 [facility] Blood platelet mean volumeOr dered By: Dr. Abdalla on 06-10-2022 Platelet mean volume (Bld) [Entitic vol] 9.4 fL 6.2-12.0 [facility] Determination of erythrocyte mean corpuscular volume (MCV)Ordered By: Dr. Abdalla on 06-10-2022 MCV (RBC) [Entitic vol] 84.0 fL 81-99 [facility] Hematocrit Auto (Bld) [Volum e fraction]Ordered By: Dr. Abdalla on 06-10-2022 Hematocrit (Bld) [Volume fraction] 41.1 % 37-47 [facility] Ketones Test strip Ql (U)Ord ered By: Dr. Abdalla on 06-10-2022 Ketones Ql (U) Negative Negative [facility] Laboratory - Chemistry and C hemistry - challengeOrdered By: Dr. Abdalla on 06-10-2022 ALP [Catalytic activity/Vol] 109 U/L 45-117 [facility] ALT [Catalytic activity/Vol] 39 U/L 13-56 [facility] CO2 [Moles/Vol] 27.0 mmol/L 21.0-32.0 [facility] Globulin (S) [Mass/Vol] 4.2 g/dL 2.2-4.2 [facility] Urea nitrogen/Creatinine [Mass ratio] 17.4 mg/mg 10-20 [facility] Laboratory - Hematology and Cell countsOrdered By: Dr. Abdalla on 06-10-2022 Erythrocyte distribution width (RBC) [Entitic vol] 47.6 fL 35.1-43.9 [facility] Erythrocyte distribution width (RBC) [Ratio] 15.6 % 11.6-14.6 [facility] Immature granulocytes/100 WBC (Bld) 0.300 % 0.0-0.9 [facility] Comment on above: IG% - Immature Granu locytes (promyelocytes, myelocytes and metamyelocytes) > 1% indicates that a LEFT SHIFT is Present. MCH (RBC) [Entitic mass] 25.6 pg 27.0-32.0 [facility] Nucleated RBC/100 WBC (Bld) [Ratio] 0 % 0-5 [facility] MCHC Auto (RBC) [Mass/Vol]Or dered By: Dr. Abdalla on 06-10-2022 MCHC (RBC) [Mass/Vol] 30.4 g/dL 32-36 [facility] Mucus LM Ql (Urine sed)Order ed By: Dr. Abdalla on 06-10-2022 Mucus Ql (Urine sed) 0 SEEN /hpf [facility] Nitrite Test strip Ql (U)Ord ered By: Dr. Abdalla on 06-10-2022 Nitrite Ql (U) Negative Negative [facility] No Panel InformationOrdered By: Dr. Abdalla on 06-10-2022 Estimated Creatinine Clearance Calc 50.54 ml/min [facility] Estimated GFR (MDRD) Amer 78 mL/min >60 [facility] Comment on above: GFR Calc Estimated GFR (MDRD) Non-Af Amer 64 mL/min >60 [facility] Comment on above: Non- GFR Calc Reactive Lymphocytes 1+ [facility] Troponin I High Sensitivity 7 pg/mL 3.0-54.0 [facility] Comment on above: Please Note: New Beat[place] t Units and Gender Specific Reference Ranges. For more information see Policy Stat Procedure [place] High Sensitivity Troponin (TNIH) and attachments. Platelets bldOrdered By: Dr. Abdalla on 06-10-2022 Platelets (Bld) [#/Vol] 382 10*3/uL 150-450 [facility] Protein Test strip Ql (U)Ord ered By: Dr. Abdalla on 06-10-2022 Protein Ql (U) Negative Negative [facility] Serum or plasma albumin swati urement (mass/volume)Ordered By: Dr. Abdalla on 06-10-2022 Albumin [Mass/Vol] 3.5 g/dL 3.2-5.0 [facility] Serum or plasma albumin/glob ulin mass ratioOrdered By: Dr. Abdalla on 06-10-2022 Albumin/Globulin [Mass ratio] 0.8 {ratio} 0.9-2.4 [facility] Serum or plasma calcium swati urement (mass/volume)Ordered By: Dr. Abdalla on 06-10-2022 Calcium [Mass/Vol] 8.9 mg/dL 8.5-10.1 [facility] Serum or plasma creatinine m easurement (mass/volume)Ordered By: Dr. Abdalla on 06-10-2022 Creatinine [Mass/Vol] 0.92 mg/dL 0.55-1.02 [facility] Comment on above: The validity of the calculated GFR & GFRAA in patients over 70 years has not been determined. Clinical correlation is essential. Serum or plasma urea nitroge n measurement (mass/volume)Ordered By: Dr. Abdalla on 06-10-2022 Urea nitrogen [Mass/Vol] 16 mg/dL 7-18 [facility] Squamous epithelial cells de tection in urine sediment by light microscopyOrdered By: Dr. Abdalla on 06-10-2022 Epithelial cells.squamous LM Ql (Urine sed) 0-5 SEEN /hpf 5-10 [facility] Thin prep Papanicolaou smear with manual screeningOrdered By: Dr. Abdalla on 06-10-2022 Thin prep Papanicolaou smear with manual screening 45 U/L 15-37 [facility] Thin prep Papanicolaou smear with manual screening 7 5-15 [facility] Urine blood detectionOrdered By: Dr. Abdalla on 06-10-2022 RBC Ql (U) Negative Negative [facility] RBC Ql (U) 0 SEEN /hpf 0-5 [facility] Urine clarityOrdered By: Dr. Abdalla on 06-10-2022 Clarity (U) Sl. Cloudy Clear [facility] Urine color determinationOrd ered By: Dr. Abdalla on 06-10-2022 Color (U) Yellow Yellow [facility] Urine glucose detectionOrder ed By: Dr. Abdalla on 06-10-2022 Glucose Ql (U) Normal mg/dl Normal [facility] Urine leukocyte esterase det ection by dipstickOrdered By: Dr. Abdalla on 06-10-2022 Leukocyte esterase Test strip Ql (U) 100 /ul Negative [facility] Urine pHOrdered By: Dr. Dallin anaya on 06-10-2022 pH (U) 7.0 [pH] 5.0 - 8.0 [facility] Urine sediment bacteria coun t by microscopy (number/high power field)Ordered By: Dr. Abdalla on 06-10-2022 Bacteria LM.HPF (Urine sed) [#/Area] 1 /[HPF] None Seen [facility] Urine specific gravity measu rementOrdered By: Dr. Abdalla on 06-10-2022 Specific gravity (U) [Rel density] 1.010 1.002-1.03 0 [facility] Urobilinogen Auto test strip Ql (U)Ordered By: Dr. Abdalla on 06-10-2022 Urobilinogen Ql (U) Normal mg/dl Normal [facility] Absolute lymphocyte counton 12-23-2021 Lymphocytes Auto (Unsp spec) [#/Vol] 2.06 10*3/uL 0.83-4.51 [facility] Work Phone: Basophil percentageon 2021 Basophils/100 WBC (Bld) 0.6 % 0-1 [facility] Work Phone: Chloride [Moles/Vol] 107 mmol/L 98-107 [facility] Work Phone: Cholesterol [Mass/Vol] 167 mg/dL <200 [facility] Work Phone: Comment on above: <200 mg/dL Desirable 200-240 mg/dL Borderline >240 mg/dL High Risk Eosinophils/100 WBC (Bld) 0.7 % 0-5 [facility] Work Phone: Glucose [Mass/Vol] 99 mg/dL 74-106 [facility] Work Phone: Neutrophils (Bld) [#/Vol] 3.8 10*3/uL 2.0-7.7 [facility] Work Phone: Neutrophils/100 WBC (Bld) 55.5 % 47-70 [facility] Work Phone: Potassium [Moles/Vol] 3.7 mmol/L 3.5-5.1 [facility] Work Phone: [phone] Sodium [Moles/Vol] 141 mmol/L 136-145 [facility] Work Phone: [phone] Triglyceride [Mass/Vol] 107 mg/dL <199 [facility] Work Phone: [phone] Comment on above: The drugs N-Acetylcy steine and Metamizole may falsely depress this assay.Serum Triglycerides Reference Interval Normal <150 mg/dL Borderline high 150 - 199 mg/dL High 200 - 499 mg/dL Very High > or = 500 mg/dL WBC (Bld) [#/Vol] 6.9 10*3/uL 4.4-11.0 [facility] Work Phone: [phone] Blood erythrocytes count (nu mber/volume)on 12-23-2021 RBC (Bld) [#/Vol] 4.27 10*6/uL 4.2-5.4 [facility] Work Phone: [phone] Blood hemoglobin measurement (mass/volume)on 12-23-2021 Hemoglobin (Bld) [Mass/Vol] 11.3 g/dL 12.0-15.0 [facility] Work Phone: Blood lymphocytes/100 leukoc yteson 12-23-2021 Lymphocytes/100 WBC (Bld) 29.9 % 19-41 [facility] Work Phone: Blood monocytes/100 leukocyt eson 12-23-2021 Monocytes/100 WBC (Bld) 12.9 % 0-10 [facility] Work Phone: Blood platelet mean volumeon 12-23-2021 Platelet mean volume (Bld) [Entitic vol] 9.3 fL 6.2-12.0 [facility] Work Phone: [phone] Determination of erythrocyte mean corpuscular volume (MCV)on 12-23-2021 MCV (RBC) [Entitic vol] 83.4 fL 81-99 [facility] Work Phone: [phone] Hematocrit Auto (Bld) [Volum e fraction]on 12-23-2021 Hematocrit (Bld) [Volume fraction] 35.6 % 37-47 [facility] Work Phone: Laboratory - Chemistry and C hemistry - challengeon 12-23-2021 CO2 [Moles/Vol] 25.0 mmol/L 21.0-32.0 [facility] Work Phone: Urea nitrogen/Creatinine [Mass ratio] 9.1 mg/mg 10-20 [facility] Work Phone: Laboratory - Hematology and Cell countson 12-23-2021 Erythrocyte distribution width (RBC) [Entitic vol] 48.2 fL 35.1-43.9 [facility] Work Phone: Erythrocyte distribution width (RBC) [Ratio] 15.9 % 11.6-14.6 [facility] Work Phone: Immature granulocytes/100 WBC (Bld) 0.400 % 0.0-0.9 [facility] Work Phone: Comment on above: IG% - Immature Granu locytes (promyelocytes, myelocytes and metamyelocytes) > 1% indicates that a LEFT SHIFT is Present. MCH (RBC) [Entitic mass] 26.5 pg 27.0-32.0 [facility] Work Phone: Nucleated RBC/100 WBC (Bld) [Ratio] 0 % 0-5 [facility] Work Phone: MCHC Auto (RBC) [Mass/Vol]on 12-23-2021 MCHC (RBC) [Mass/Vol] 31.7 g/dL 32-36 [facility] Work Phone: No Panel Informationon 12-23 Estimated Creatinine Clearance Calc 43.61 ml/min [facility] Work Phone: Estimated GFR (MDRD) Amer 72 mL/min >60 [facility] Work Phone: Comment on above: GFR Calc Estimated GFR (MDRD) Non-Af Amer 59 mL/min >60 [facility] Work Phone: Comment on above: Non- GFR Calc Thyroid Stimulating Hormone (TSH) 2.81 uIU/mL 0.358-3.74 [facility] Work Phone: Platelets bldon 12-23-2021 Platelets (Bld) [#/Vol] 313 10*3/uL 150-450 [facility] Work Phone: Serum or plasma calcium swati urement (mass/volume)on 12-23-2021 Calcium [Mass/Vol] 8.5 mg/dL 8.5-10.1 [facility] Work Phone: Serum or plasma cholesterol in HDL measurement (mass/volume)on 12-23-2021 Cholesterol in HDL [Mass/Vol] 44 mg/dL >40 [facility] Work Phone: Comment on above: The drugs N-Acetylcy steine and Metamizole may falsely depress this assay. Reference Range HDL <40 mg/dL Low HDL Cholesterol HDL >or= 60 mg/dL High HDL Cholesterol Serum or plasma cholesterol in VLDL measurement (mass/volume)on 12-23-2021 Cholesterol in VLDL [Mass/Vol] 21 mg/dL 5-40 [facility] Work Phone: Serum or plasma creatinine m easurement (mass/volume)on 12-23-2021 Creatinine [Mass/Vol] 0.99 mg/dL 0.55-1.02 [facility] Work Phone: Comment on above: The validity of the calculated GFR & GFRAA in patients over 70 years has not been determined. Clinical correlation is essential. Serum or plasma low density lipoprotein (LDL) cholesterol measurement (mass/volume)on 12-23-2021 Cholesterol in LDL [Mass/Vol] 102 mg/dL 0-130 [facility] Work Phone: Serum or plasma urea nitroge n measurement (mass/volume)on 12-23-2021 Urea nitrogen [Mass/Vol] 9 mg/dL 7-18 [facility] Work Phone: Thin prep Papanicolaou smear with manual screeningon 12-23-2021 Thin prep Papanicolaou smear with manual screening 9 5-15 [facility] Work Phone: Absolute lymphocyte counton 12-22-2021 Lymphocytes Auto (Unsp spec) [#/Vol] 2.04 10*3/uL 0.83-4.51 [facility] Work Phone: Basophil percentageon 2021 Basophils/100 WBC (Bld) 0.6 % 0-1 [facility] Work Phone: Chloride [Moles/Vol] 104 mmol/L 98-107 [facility] Work Phone: Eosinophils/100 WBC (Bld) 1.4 % 0-5 [facility] Work Phone: Glucose [Mass/Vol] 99 mg/dL 74-106 [facility] Work Phone: Neutrophils (Bld) [#/Vol] 7.0 10*3/uL 2.0-7.7 [facility] Work Phone: Neutrophils/100 WBC (Bld) 68.1 % 47-70 [facility] Work Phone: Potassium [Moles/Vol] 3.5 mmol/L 3.5-5.1 [facility] Work Phone: Sodium [Moles/Vol] 140 mmol/L 136-145 [facility] Work Phone: WBC (Bld) [#/Vol] 10.3 10*3/uL 4.4-11.0 [facility] Work Phone: Blood erythrocytes count (nu mber/volume)on 12-22-2021 RBC (Bld) [#/Vol] 4.69 10*6/uL 4.2-5.4 [facility] Work Phone: Blood hemoglobin measurement (mass/volume)on 12-22-2021 Hemoglobin (Bld) [Mass/Vol] 12.0 g/dL 12.0-15.0 [facility] Work Phone: Blood lymphocytes/100 leukoc yteson 12-22-2021 Lymphocytes/100 WBC (Bld) 19.8 % 19-41 [facility] Work Phone: Blood monocytes/100 leukocyt eson 12-22-2021 Monocytes/100 WBC (Bld) 9.5 % 0-10 [facility] Work Phone: Blood platelet mean volumeon 12-22-2021 Platelet mean volume (Bld) [Entitic vol] 9.3 fL 6.2-12.0 [facility] Work Phone: Determination of erythrocyte mean corpuscular volume (MCV)on 12-22-2021 MCV (RBC) [Entitic vol] 83.2 fL 81-99 [facility] Work Phone: Hematocrit Auto (Bld) [Volum e fraction]on 12-22-2021 Hematocrit (Bld) [Volume fraction] 39.0 % 37-47 [facility] Work Phone: [phone] Laboratory - Chemistry and C hemistry - challengeon 12-22-2021 CO2 [Moles/Vol] 28.0 mmol/L 21.0-32.0 [facility] Work Phone: Magnesium [Mass/Vol] 2.1 mg/dL 1.6-2.6 [facility] Work Phone: Natriuretic peptide B (Bld) [Mass/Vol] 33.9 pg/mL 0-100 [facility] Work Phone: Urea nitrogen/Creatinine [Mass ratio] 7.3 mg/mg 10-20 [facility] Work Phone: [phone] Laboratory - Hematology and Cell countson 12-22-2021 Erythrocyte distribution width (RBC) [Entitic vol] 47.7 fL 35.1-43.9 [facility] Work Phone: Erythrocyte distribution width (RBC) [Ratio] 15.9 % 11.6-14.6 [facility] Work Phone: Immature granulocytes/100 WBC (Bld) 0.600 % 0.0-0.9 [facility] Work Phone: [phone] Comment on above: IG% - Immature Granu locytes (promyelocytes, myelocytes and metamyelocytes) > 1% indicates that a LEFT SHIFT is Present. MCH (RBC) [Entitic mass] 25.6 pg 27.0-32.0 [facility] Work Phone: Nucleated RBC/100 WBC (Bld) [Ratio] 0 % 0-5 [facility] Work Phone: MCHC Auto (RBC) [Mass/Vol]on 12-22-2021 MCHC (RBC) [Mass/Vol] 30.8 g/dL 32-36 [facility] Work Phone: No Panel Informationon 12-22 Troponin I High Sensitivity 7 pg/mL 3.0-54.0 [facility] Work Phone: Comment on above: Please Note: New Beatriz t Units and Gender Specific Reference Ranges. For more information see Policy Stat Procedure [place] High Sensitivity Troponin (TNIH) and attachments. Troponin I High Sensitivity 6 pg/mL 3.0-54.0 [facility] Work Phone: Comment on above: Please Note: New Beatriz t Units and Gender Specific Reference Ranges. For more information see Policy Stat Procedure [place] High Sensitivity Troponin (TNIH) and attachments. D-Dimer Quantitative (PE/DVT) 0.67 FEU/ug/m 0.27-0.49 [facility] Work Phone: Comment on above: D-Dimer ELEVATED (>0 .49): Additional studies and clinicalassessments are indicated to conclude diagnosis of:Deep Vein Thrombosis (DVT) or Pulmonary Embolism (PE)CRITICAL VALUE VERIFIED. CALLED TO [id number] Milana Godinez.RESULTS READ BACK BY SAME . Estimated Creatinine Clearance Calc 44.98 ml/min [facility] Work Phone: Estimated GFR (MDRD) Amer 74 mL/min >60 [facility] Work Phone: Comment on above: GFR Calc Estimated GFR (MDRD) Non-Af Amer 61 mL/min >60 [facility] Work Phone: Comment on above: Non- GFR Calc Platelets bldon 12-22-2021 Platelets (Bld) [#/Vol] 379 10*3/uL 150-450 [facility] Work Phone: [phone] Serum or plasma calcium swati urement (mass/volume)on 12-22-2021 Calcium [Mass/Vol] 8.9 mg/dL 8.5-10.1 [facility] Work Phone: [phone] Serum or plasma creatinine m easurement (mass/volume)on 12-22-2021 Creatinine [Mass/Vol] 0.96 mg/dL 0.55-1.02 [facility] Work Phone: [phone] Comment on above: The validity of the calculated GFR & GFRAA in patients over 70 years has not been determined. Clinical correlation is essential. Serum or plasma urea nitroge n measurement (mass/volume)on 12-22-2021 Urea nitrogen [Mass/Vol] 7 mg/dL 7-18 [facility] Work Phone: [phone] Thin prep Papanicolaou smear with manual screeningon 12-22-2021 Thin prep Papanicolaou smear with manual screening 8 5-15 [facility] Work Phone: [phone] Absolute lymphocyte counton 05-22-2021 Lymphocytes Auto (Unsp spec) [#/Vol] 3.75 10*3/uL 0.83-4.51 [facility] Work Phone: [phone] Basophil percentageon 2021 Basophils/100 WBC (Bld) 0.4 % 0-1 [facility] Work Phone: Chloride [Moles/Vol] 106 mmol/L 98-107 [facility] Work Phone: Eosinophils/100 WBC (Bld) 3.0 % 0-5 [facility] Work Phone: Glucose [Mass/Vol] 92 mg/dL 74-106 [facility] Work Phone: Neutrophils (Bld) [#/Vol] 4.1 10*3/uL 2.0-7.7 [facility] Work Phone: Neutrophils/100 WBC (Bld) 46.0 % 47-70 [facility] Work Phone: Potassium [Moles/Vol] 4.0 mmol/L 3.5-5.1 [facility] Work Phone: Sodium [Moles/Vol] 140 mmol/L 136-145 [facility] Work Phone: WBC (Bld) [#/Vol] 8.9 10*3/uL 4.4-11.0 [facility] Work Phone: Blood erythrocytes count (nu mber/volume)on 05-22-2021 RBC (Bld) [#/Vol] 4.47 10*6/uL 4.2-5.4 [facility] Work Phone: [phone] Blood hemoglobin measurement (mass/volume)on 05-22-2021 Hemoglobin (Bld) [Mass/Vol] 12.1 g/dL 12.0-15.0 [facility] Work Phone: Blood lymphocytes/100 leukoc yteson 05-22-2021 Lymphocytes/100 WBC (Bld) 42.1 % 19-41 [facility] Work Phone: Blood monocytes/100 leukocyt eson 05-22-2021 Monocytes/100 WBC (Bld) 8.3 % 0-10 [facility] Work Phone: Blood platelet mean volumeon 05-22-2021 Platelet mean volume (Bld) [Entitic vol] 9.2 fL 6.2-12.0 [facility] Work Phone: [phone] Determination of erythrocyte mean corpuscular volume (MCV)on 05-22-2021 MCV (RBC) [Entitic vol] 83.9 fL 81-99 [facility] Work Phone: Hematocrit Auto (Bld) [Volum e fraction]on 05-22-2021 Hematocrit (Bld) [Volume fraction] 37.5 % 37-47 [facility] Work Phone: [phone] Laboratory - Chemistry and C hemistry - challengeon 05-22-2021 CO2 [Moles/Vol] 28.0 mmol/L 21.0-32.0 [facility] Work Phone: Urea nitrogen/Creatinine [Mass ratio] 20.3 mg/mg 10-20 [facility] Work Phone: Laboratory - Hematology and Cell countson 05-22-2021 Erythrocyte distribution width (RBC) [Entitic vol] 48.2 fL 35.1-43.9 [facility] Work Phone: Erythrocyte distribution width (RBC) [Ratio] 15.8 % 11.6-14.6 [facility] Work Phone: Immature granulocytes/100 WBC (Bld) 0.200 % 0.0-0.9 [facility] Work Phone: Comment on above: IG% - Immature Granu locytes (promyelocytes, myelocytes and metamyelocytes) > 1% indicates that a LEFT SHIFT is Present. MCH (RBC) [Entitic mass] 27.1 pg 27.0-32.0 [facility] Work Phone: Nucleated RBC/100 WBC (Bld) [Ratio] 0 % 0-5 [facility] Work Phone: MCHC Auto (RBC) [Mass/Vol]on 05-22-2021 MCHC (RBC) [Mass/Vol] 32.3 g/dL 32-36 [facility] Work Phone: No Panel Informationon 05-22 Estimated Creatinine Clearance Calc 47.14 ml/min [facility] Work Phone: Estimated GFR (MDRD) Amer 94 mL/min >60 [facility] Work Phone: Comment on above: GFR Calc Estimated GFR (MDRD) Non-Af Amer 77 mL/min >60 [facility] Work Phone: Comment on above: Non- GFR Calc Platelets bldon 05-22-2021 Platelets (Bld) [#/Vol] 356 10*3/uL 150-450 [facility] Work Phone: Serum or plasma calcium swati urement (mass/volume)on 05-22-2021 Calcium [Mass/Vol] 8.6 mg/dL 8.5-10.1 [facility] Work Phone: Serum or plasma creatinine m easurement (mass/volume)on 05-22-2021 Creatinine [Mass/Vol] 0.79 mg/dL 0.55-1.02 [facility] Work Phone: Comment on above: The validity of the calculated GFR & GFRAA in patients over 70 years has not been determined. Clinical correlation is essential. Serum or plasma urea nitroge n measurement (mass/volume)on 05-22-2021 Urea nitrogen [Mass/Vol] 16 mg/dL 7-18 [facility] Work Phone: Thin prep Papanicolaou smear with manual screeningon 05-22-2021 Thin prep Papanicolaou smear with manual screening 6 5-15 [facility] Work Phone: Absolute lymphocyte counton 04-12-2021 Lymphocytes Auto (Unsp spec) [#/Vol] 2.79 10*3/uL 0.83-4.51 [facility] Work Phone: [phone] Basophil percentageon 2021 Basophils/100 WBC (Bld) 0.5 % 0-1 [facility] Work Phone: Chloride [Moles/Vol] 104 mmol/L 98-107 [facility] Work Phone: [phone] Eosinophils/100 WBC (Bld) 1.1 % 0-5 [facility] Work Phone: Glucose [Mass/Vol] 129 mg/dL 74-106 [facility] Work Phone: Comment on above: Fasting Glucose resu lt greater than or equal to 126 mg/dL suggests DIABETES MELLITUS per A.D.A. criteria.Please note revised GLUCOSE reference range effective 2017. Neutrophils (Bld) [#/Vol] 7.8 10*3/uL 2.0-7.7 [facility] Work Phone: [phone] Neutrophils/100 WBC (Bld) 66.1 % 47-70 [facility] Work Phone: [phone] Potassium [Moles/Vol] 3.3 mmol/L 3.5-5.1 [facility] Work Phone: Sodium [Moles/Vol] 139 mmol/L 136-145 [facility] Work Phone: WBC (Bld) [#/Vol] 11.8 10*3/uL 4.4-11.0 [facility] Work [facility]: Blood erythrocytes count (nu mber/volume)on 04-12-2021 RBC (Bld) [#/Vol] 4.86 10*6/uL 4.2-5.4 [facility] Work Phone: [phone] Blood hemoglobin measurement (mass/volume)on 04-12-2021 Hemoglobin (Bld) [Mass/Vol] 12.6 g/dL 12.0-15.0 [facility] Work Phone: Blood lymphocytes/100 leukoc yteson 04-12-2021 Lymphocytes/100 WBC (Bld) 23.6 % 19-41 [facility] Work Phone: Blood monocytes/100 leukocyt eson 04-12-2021 Monocytes/100 WBC (Bld) 8.1 % 0-10 [facility] Work Phone: Blood platelet mean volumeon 04-12-2021 Platelet mean volume (Bld) [Entitic vol] 9.3 fL 6.2-12.0 [facility] Work Phone: [phone] Determination of erythrocyte mean corpuscular volume (MCV)on 04-12-2021 MCV (RBC) [Entitic vol] 82.1 fL 81-99 [facility] Work Phone: Hematocrit Auto (Bld) [Volum e fraction]on 04-12-2021 Hematocrit (Bld) [Volume fraction] 39.9 % 37-47 [facility] Work Phone: [phone] Laboratory - Chemistry and C hemistry - challengeon 04-12-2021 CO2 [Moles/Vol] 26.0 mmol/L 21.0-32.0 [facility] Work Phone: Urea nitrogen/Creatinine [Mass ratio] 15.3 mg/mg 10-20 [facility] Work Phone: Laboratory - Hematology and Cell countson 04-12-2021 Erythrocyte distribution width (RBC) [Entitic vol] 47.4 fL 35.1-43.9 [facility] Work Phone: Erythrocyte distribution width (RBC) [Ratio] 15.9 % 11.6-14.6 [facility] Work Phone: Immature granulocytes/100 WBC (Bld) 0.600 % 0.0-0.9 [facility] Work Phone: Comment on above: IG% - Immature Granu locytes (promyelocytes, myelocytes and metamyelocytes) > 1% indicates that a LEFT SHIFT is Present. MCH (RBC) [Entitic mass] 25.9 pg 27.0-32.0 [facility] Work Phone: Nucleated RBC/100 WBC (Bld) [Ratio] 0 % 0-5 [facility] Work Phone: MCHC Auto (RBC) [Mass/Vol]on 04-12-2021 MCHC (RBC) [Mass/Vol] 31.6 g/dL 32-36 [facility] Work Phone: No Panel Informationon 04-12 Estimated Creatinine Clearance Calc 51.24 ml/min [facility] Work Phone: Estimated GFR (MDRD) Amer 79 mL/min >60 [facility] Work Phone: Comment on above: GFR Calc Estimated GFR (MDRD) Non-Af Amer 65 mL/min >60 [facility] Work Phone: Comment on above: Non- GFR Calc SARS-CoV-2 Antigen (Rapid) [facility] Work Phone: Platelets bldon 04-12-2021 Platelets (Bld) [#/Vol] 352 10*3/uL 150-450 [facility] Work Phone: Serum or plasma calcium swati urement (mass/volume)on 04-12-2021 Calcium [Mass/Vol] 9.8 mg/dL 8.5-10.1 [facility] Work Phone: Serum or plasma creatinine m easurement (mass/volume)on 04-12-2021 Creatinine [Mass/Vol] 0.92 mg/dL 0.55-1.02 [facility] Work Phone: Comment on above: The validity of the calculated GFR & GFRAA in patients over 70 years has not been determined. Clinical correlation is essential. Serum or plasma urea nitroge n measurement (mass/volume)on 04-12-2021 Urea nitrogen [Mass/Vol] 14 mg/dL 7-18 [facility] Work Phone: Thin prep Papanicolaou smear with manual screeningon 04-12-2021 Thin prep Papanicolaou smear with manual screening 9 5-15 [facility] Work Phone: Vital Signs Date Time Vital Sign Value Performing Clinician Facility 10-28-2024 11:19-0400 Body height 160.[address] Olivia Gates DO Work Phone: [facility] 10-28-2024 11:19-0400 Body mass index (BMI) [Ratio] 43.4 kg/m2 Dr. Olivia Gates DO Work Phone: [facility] 10-28-2024 11:19-0400 Body weight 111.[address] Olivia Gates DO Work Phone: [facility] 09-03-2024 10:11-0400 Body height 160.[address] Olivia Gates DO Work Phone: [facility] 09-03-2024 10:11-0400 Body mass index (BMI) [Ratio] 42.5 kg/m2 Dr. Olivia Gates DO Work Phone: [facility] 09-03-2024 10:11-0400 Body weight 108.[address] Olivia Gates DO Work Phone: [facility] 08-22-2024 11:26-0400 Body temperature 98.2 [degF] Dr. Olivia Gates DO Work Phone: [facility] 08-22-2024 11:26-0400 Diastolic blood pressure 50 mm[Hg] Dr. Olivia Gates DO Work Phone: [facility] 08-22-2024 11:26-0400 Heart rate 65 /min Dr. Olivia Gates DO Work Phone: [facility] 08-22-2024 11:26-0400 Respiratory rate 16 /min Dr. Olivia Gates DO Work Phone: [facility] 08-22-2024 11:26-0400 SaO2% (BldA) [Mass fraction] 94 % Dr. Olivia Gates DO Work Phone: [facility] 08-22-2024 11:26-0400 Systolic blood pressure 128 mm[Hg] Dr. Olivia Gates DO Work Phone: [facility] 08-22-2024 07:21-0400 Inhaled oxygen flow rate 1 L/min Dr. Olivia Gates DO Work Phone: [facility] 08-21-2024 22:00-0400 Inhaled oxygen concentration 21 % Dr. Olivia Gates DO Work Phone: [facility] 08-21-2024 16:30-0400 Body height [address] Olivia Gates DO Work Phone: [facility] 08-21-2024 16:30-0400 Body mass index (BMI) [Ratio] 0 kg/m2 Dr. Olivia Gates DO Work Phone: [facility] 08-21-2024 16:30-0400 Body weight [address] Olivia Gates DO Work Phone: [facility] 07-05-2024 09:44-0400 Body height 160.[address] Olivia Gates DO Work Phone: [facility] 07-05-2024 09:44-0400 Body mass index (BMI) [Ratio] 42.5 kg/m2 Dr. Olivia Gates DO Work Phone: [facility] 07-05-2024 09:44-0400 Body weight 108.[address] Olivia Gates DO Work Phone: [facility] 05-30-2024 13:25-0500 Body height 160.[address] Olivia Gates DO Work Phone: [facility] 05-30-2024 13:25-0500 Body mass index (BMI) [Ratio] 42.5 kg/m2 Dr. Olivia Gates DO Work Phone: [facility] 05-30-2024 13:25-0500 Body weight 108.[address] Olivia Gates DO Work Phone: [facility] 05-18-2024 15:25-0500 Body temperature 98.1 [degF] Dr. Olivia Gates DO Work Phone: [facility] 05-18-2024 15:25-0500 Diastolic blood pressure 89 mm[Hg] Dr. Olivia Gates DO Work Phone: [facility] 05-18-2024 15:25-0500 Heart rate 79 /min Dr. Olivia Gates DO Work Phone: [facility] 05-18-2024 15:25-0500 Respiratory rate 18 /min Dr. Olivia Gates DO Work Phone: [facility] 05-18-2024 15:25-0500 SaO2% (BldA) [Mass fraction] 95 % Dr. Olivia Gates DO Work Phone: [facility] 05-18-2024 15:25-0500 Systolic blood pressure 156 mm[Hg] Dr. Olivia Gates DO Work Phone: [facility] 05-18-2024 13:37-0500 Body mass index (BMI) [Ratio] 44.1 kg/m2 Dr. Olivia Gates DO Work Phone: [facility] 05-18-2024 13:37-0500 Body weight 109.[address] Olivia Gates DO Work Phone: [facility] 08-21-2023 19:32-0400 Body temperature 97.5 [degF] Dr. Olivia Gates Work Phone: [facility] 08-21-2023 19:32-0400 Diastolic blood pressure 74 mm[Hg] Dr. Olivia Gates Work Phone: [facility] 08-21-2023 19:32-0400 Heart rate 76 /min Dr. Olivia Gates Work Phone: [facility] 08-21-2023 19:32-0400 Respiratory rate 22 /min Dr. Olivia Gates Work Phone: [facility] 08-21-2023 19:32-0400 SaO2% (BldA) [Mass fraction] 92 % Dr. Olivia Gates Work Phone: [facility] 08-21-2023 19:32-0400 Systolic blood pressure 146 mm[Hg] Dr. Olivia Gates Work Phone: [facility] 08-21-2023 17:01-0400 Body mass index (BMI) [Ratio] 43.3 kg/m2 Dr. Olivia Gates Work Phone: [facility] 08-21-2023 17:01-0400 Body weight [address] Olivia Gates Work Phone: [facility] 08-21-2023 16:59-0400 Body height 160.[address] Olivia Gates Work Phone: [facility] 02-24-2023 16:19-0500 Diastolic blood pressure 72 mm[Hg] [facility] 02-24-2023 16:19-0500 Heart rate 70 /min [facility] 02-24-2023 16:19-0500 Respiratory rate 16 /min [facility] 02-24-2023 16:19-0500 SaO2% (BldA) [Mass fraction] 98 % [facility] 02-24-2023 16:19-0500 Systolic blood pressure 162 mm[Hg] [facility] 02-24-2023 08:41-0500 Body height 160.02 cm [facility] 02-24-2023 08:41-0500 Body mass index (BMI) [Ratio] 42.4 kg/m2 [facility] 02-24-2023 08:41-0500 Body temperature 98.3 [degF] [facility] 02-24-2023 08:41-0500 Body weight 108.68 kg [facility] 11-07-2022 17:53-0400 Body mass index (BMI) [Ratio] 40.2 kg/m2 [facility] 11-07-2022 17:53-0400 Body weight 106.3 kg [facility] 11-07-2022 17:53-0400 Heart rate 75 /min [facility] 11-07-2022 17:53-0400 Respiratory rate 18 /min [facility] 11-07-2022 17:53-0400 SaO2% (BldA) [Mass fraction] 97 % [facility] 11-07-2022 15:02-0400 Body height 162.56 cm [facility] 11-07-2022 15:02-0400 Body temperature 97.7 [degF] [facility] 11-07-2022 15:02-0400 Diastolic blood pressure 74 mm[Hg] [facility] 11-07-2022 15:02-0400 Systolic blood pressure 130 mm[Hg] [facility] 06-10-2022 15:26-0500 Diastolic blood pressure 66 mm[Hg] Dr. Olivia Gates Work Phone: [facility] 06-10-2022 15:26-0500 Heart rate 60 /min Dr. Olivia Gates Work Phone: [facility] 06-10-2022 15:26-0500 Respiratory rate 14 /min Dr. Olivia Gates Work Phone: [facility] 06-10-2022 15:26-0500 SaO2% (BldA) [Mass fraction] 95 % Dr. Olivia Gates Work Phone: [facility] 06-10-2022 15:26-0500 Systolic blood pressure 140 mm[Hg] Dr. Olivia Gates Work Phone: [facility] 06-10-2022 14:09-0500 Body temperature 97.9 [degF] Dr. Olivia Gates Work Phone: [facility] 06-10-2022 12:24-0500 Body height 162.[address] Olivia Gates Work Phone: [facility] 06-10-2022 12:24-0500 Body mass index (BMI) [Ratio] 39.9 kg/m2 Dr. Olivia Gates Work Phone: [facility] 06-10-2022 12:24-0500 Body weight 105.[address] Olivia Gates Work Phone: [facility] 05-06-2022 15:48-0500 Body height 162.56 cm [facility] 05-06-2022 15:48-0500 Body mass index (BMI) [Ratio] 40.1 kg/m2 [facility] 05-06-2022 15:48-0500 Body temperature 96.8 [degF] [facility] 05-06-2022 15:48-0500 Body weight 106.14 kg [facility] 05-06-2022 15:48-0500 Diastolic blood pressure 100 mm[Hg] [facility] 05-06-2022 15:48-0500 Heart rate 84 /min [facility] 05-06-2022 15:48-0500 Respiratory rate 18 /min [facility] 05-06-2022 15:48-0500 SaO2% (BldA) [Mass fraction] 98 % [facility] 05-06-2022 15:48-0500 Systolic blood pressure 154 mm[Hg] [facility] 12-23-2021 11:04-0400 Body temperature 98.8 [degF] Dr. Olivia Gates Work Phone: [facility] Work Phone: 12-23-2021 11:04-0400 Diastolic blood pressure 67 mm[Hg] Dr. Olivia Gates Work Phone: [facility] Work Phone: 12-23-2021 11:04-0400 Heart rate 77 /min Dr. Olivia Gates Work Phone: [facility] Work Phone: 12-23-2021 11:04-0400 Respiratory rate 16 /min Dr. Olivia Gates Work Phone: [facility] Work Phone: 12-23-2021 11:04-0400 SaO2% (BldA) [Mass fraction] 94 % Dr. Olivia Gates Work Phone: [facility] Work Phone: 12-23-2021 11:04-0400 Systolic blood pressure 142 mm[Hg] Dr. Olivia Gates Work Phone: [facility] Work Phone: 12-23-2021 10:13-0400 Body height 157.[address] Olivia Gates Work Phone: [facility] Work Phone: 12-23-2021 10:13-0400 Body weight 103.[address] Olivia Gates Work Phone: [facility] Work Phone: 12-22-2021 19:02-0400 Body mass index (BMI) [Ratio] 41.5 kg/m2 Dr. Olivia Gates Work Phone: [facility] Work Phone: 12-22-2021 18:32-0400 Body temperature 97.3 [degF] [facility] Work Phone: 12-22-2021 18:32-0400 Diastolic blood pressure 68 mm[Hg] [facility] Work Phone: 12-22-2021 18:32-0400 Heart rate 81 /min [facility] Work Phone: 12-22-2021 18:32-0400 Respiratory rate 19 /min [facility] Work Phone: 12-22-2021 18:32-0400 SaO2% (BldA) [Mass fraction] 93 % [facility] Work Phone: 12-22-2021 18:32-0400 Systolic blood pressure 165 mm[Hg] [facility] Work Phone: 12-22-2021 14:19-0400 Body height 157.48 cm [facility] Work Phone: 12-22-2021 14:19-0400 Body mass index (BMI) [Ratio] 42.6 kg/m2 [facility] Work Phone: 12-22-2021 14:19-0400 Body weight 105.7 kg [facility] Work Phone: 05-22-2021 13:16-0500 Body height 162.56 cm [facility] Work Phone: 05-22-2021 13:16-0500 Body mass index (BMI) [Ratio] 39.8 kg/m2 [facility] Work Phone: 05-22-2021 13:16-0500 Body temperature 99.1 [degF] [facility] Work Phone: 05-22-2021 13:16-0500 Body weight 105.23 kg [facility] Work Phone: 05-22-2021 13:16-0500 Heart rate 69 /min [facility] Work Phone: 05-22-2021 13:16-0500 Respiratory rate 16 /min [facility] Work Phone: 05-22-2021 13:16-0500 SaO2% (BldA) [Mass fraction] 98 % [facility] Work Phone: 05-22-2021 13:15-0500 Diastolic blood pressure 66 mm[Hg] [facility] Work Phone: 05-22-2021 13:15-0500 Systolic blood pressure 144 mm[Hg] [facility] Work Phone: 04-13-2021 00:21-0500 Diastolic blood pressure 70 mm[Hg] [facility] Work Phone: 04-13-2021 00:21-0500 Heart rate 70 /min [facility] Work Phone: 04-13-2021 00:21-0500 Respiratory rate 15 /min [facility] Work Phone: 04-13-2021 00:21-0500 SaO2% (BldA) [Mass fraction] 98 % [facility] Work Phone: 04-13-2021 00:21-0500 Systolic blood pressure 114 mm[Hg] [facility] Work Phone: 04-12-2021 23:26-0500 Body temperature 98.2 [degF] [facility] Work Phone: 04-12-2021 16:31-0500 Body mass index (BMI) [Ratio] 38.6 kg/m2 [facility] Work Phone: 04-12-2021 16:31-0500 Body weight 102.05 kg [facility] Work Phone: Encounters Encounter Date Encounter Type Care Provider Facility Start: 12-17-2024 ambulatory [facility] Facility :[facility] Start: 11-19-2024 End: 11-19-[address] Macario Llanos MD -[facility] Work Phone: Start: 11-19-2024 End: 11-19-[address] Olivia Gates DO Work Phone: -[facility] Start: 10-28-2024 End: 10-28-[address] Macario Llanos MD -[facility] Work Phone: Start: 10-28-2024 End: 10-28-[address] Olivia Gates DO Work Phone: -[facility] Start: 10-01-2024 End: 10-01-[address] Macario Llanos MD -[facility] Work Phone: Start: 10-01-2024 End: 10-01-[address] Olivia Gates DO Work Phone: [facility] Work Phone: Start: 09-24-2024 Encounter for other preprocedural examination [facility] Start: 09-03-2024 End: 09-03-[address] Macario Llanos MD -[facility] Work Phone: Start: 09-03-2024 End: 09-03-[address] Olivia Gates DO Work Phone: [facility] Work Phone: Start: 08-26-2024 ambulatory Macario Llanos Facility :[facility] Start: 08-22-2024 Non-patient / Non-visit Dr. Isauro Llanos MD -[facility] Start: 08-21-2024 Non-patient / Non-visit Dr. Cheryl Vaca MD -[facility] Work Phone: Start: 08-21-2024 ambulatory Macario Llanos Facility :[facility] Start: 08-21-2024 End: 08-22-2024 Evaluation and management of inpatient Dr. Macario Llanos MD -[facility] Work Phone: Start: 08-21-2024 ambulatory Macario Llanos Facility :[facility] Start: 08-21-2024 Non-patient / Non-visit Dr. Isauro Llanos MD -[facility] Start: 08-20-2024 End: 08-20-[address] Olivia Gates DO -Laboratory Work Phone: Start: 08-20-2024 End: 08-20-[address] Olivia Gates DO Work Phone: [facility] Work Phone: Start: 08-20-2024 End: 08-20-2024 Non-patient / Non-visit Dr. Mino Gomez MD -[facility] Work Phone: Start: 08-20-2024 End: 08-20-2024 [facility] Start: 08-13-2024 End: 08-13-[address] Olivia Gates DO Work Phone: [facility] Work Phone: Start: 08-13-2024 End: 08-13-[address] [facility] Work Phone: Start: 08-13-2024 End: 08-13-2024 [facility] Start: 07-05-2024 End: 07-05-[address] Macario Llanos MD -[facility] Work Phone: Start: 07-05-2024 End: 07-05-2024 ambulatory Olivia Gates Facility:[facility] Start: 06-26-2024 End: 06-26-[address] Olivia Gates DO Work Phone: [facility] Work Phone: Start: 06-26-2024 End: 06-26-[address] Macario Llanos MD -[facility] Work Phone: Start: 06-26-2024 End: 06-26-2024 ambulatory Macario Llanos Facility:[facility] Start: 05-30-2024 End: 05-30-[address] Macario Llanos MD -[facility] Work Phone: Start: 05-30-2024 End: 05-30-2024 ambulatory Oliviaalli Gates Facility:[facility] Start: 05-18-2024 End: 05-18-2024 Emergency department patient visit Dr. Federico Arango MD -Emergency Department Work Phone: Start: 04-01-2024 [facility] Start: 02-28-2024 End: 02-28-2024 [facility] Start: 01-05-2024 End: 01-05-2024 Emergency department patient visit Augusto Kingston Facility:[facility] Start: 08-21-2023 End: 08-21-2023 Emergency department patient visit Dr. Olivia Gates Work Phone: [facility]-Emergency Department Work Phone: Start: 07-05-2023 End: 07-05-[address] Olivia Gates Work Phone: [facility] Work Phone: Start: 07-05-2023 End: 07-05-[address] Olivia Gates Work Phone: [facility]-Laboratory, Specimen Work Phone: Start: 06-27-2023 End: 06-27-[address] Olivia Gates Work Phone: [facility] Work Phone: Start: 06-27-2023 End: 06-27-[address] Olivia Gates Work Phone: [facility]-Outpatient Bone Densitometry Work Phone: Start: 06-14-2023 Non-patient / Non-visit Dr. Fina Gates Work Phone: [facility] Start: 06-14-2023 End: 06-14-[address] Olivia Gates Work Phone: [facility] Work Phone: Start: 06-14-2023 End: 06-14-[address] Olivia Gates Work Phone: [facility]-Pulmonary Services/Neurology Work Phone: Start: 05-05-2023 End: 05-05-2023 ambulatory [facility] Work Phone: Start: 05-05-2023 End: 05-05-2023 Patient encounter procedure [facility] Work Phone: Start: 04-24-2023 End: 04-24-2023 ambulatory [facility] Work Phone: Start: 04-24-2023 End: 04-24-2023 [facility] Start: 02-24-2023 End: 02-24-2023 Emergency department patient visit [facility]Emer[facility] Work Phone: Start: 11-07-2022 End: 11-07-2022 Emergency department patient visit [facility]Emer[facility] Work Phone: Start: 06-13-2022 End: 06-13-[address] Olivia Gates Work Phone: [facility] Work Phone: Start: 06-13-2022 End: 06-13-[address] Olivia Gates Work Phone: [facility] Start: 06-10-2022 End: 06-10-2022 Emergency department patient visit Dr. Olivia Gates Work Phone: [facility]-Emergency Department Start: 05-06-2022 Non-patient / Non-visit [facility] Start: 05-06-2022 End: 05-06-2022 [facility] Start: 12-23-2021 Non-patient / Non-visit Dr. Fina Gates Work Phone: [facility] Start: 12-22-2021 Non-patient / Non-visit Dr. Fina Gates Work Phone: [facility] Start: 12-22-2021 End: 12-23-2021 [facility] Start: 12-22-2021 End: 12-23-[address] Olivia Gates Work Phone: [facility] Work Phone: Start: 06-24-2021 End: 06-24-2021 Patient encounter procedure [facility]-Outpatient Bone Densitometry Start: 05-22-2021 End: 05-22-2021 Emergency department patient visit [facility]-Emergency Department Start: 04-12-2021 End: 04-13-2021 Emergency department patient visit [facility]Emergency Department Procedures Date Procedure Procedure Detail Performing Clinician Start: 08-22-[address] Olivia Gates DO Work Phone: Start: 08-21-2024 Procedure on shoulder joint Dr. Olivia Gates DO Work Phone: Start: 08-13-[address] Olivia Gates DO Work Phone: Start: 06-26-2024 MRI of joint of lower extremity Dr. Olivia Gates DO Work Phone: Start: 05-18-2024 Plain X-ray of shoulder Dr. Olivia Valenzuela Work Phone: Start: 08-21-2023 Plain chest X-ray Dr. Olivia Gates Work Phone: Start: 06-27-2023 Dual energy X-ray absorptiometry Dr. Olivia Gates Work Phone: Start: 06-27-[address] Olivia Gates Work Phone: Start: 05-05-2023 Plain x-ray of pelvis and lower extremity Start: 05-05-2023 Plain X-ray of shoulder Start: 05-05-2023 X-ray of cervical spine Start: 05-05-2023 Computed tomography of abdomen and pelvis with contrast Start: 02-24-2023 Plain chest X-ray Start: 02-24-2023 CT angiography of head and neck Start: 06-10-2022 CT of head without contrast Dr. Olivia Gates Work Phone: Start: 05-06-2022 Radiologic examination of knee Start: 12-23-2021 Cardiovascular stress test using pharmacologic stress agent Dr. Olivia Gates Work Phone: Start: 12-22-2021 Plain chest X-ray Start: 06-24-2021 Plain X-ray of shoulder Start: 06-24-2021 X-ray of cervical spine Start: 06-24-2021 Screening mammography Start: 06-24-2021 Dual energy X-ray absorptiometry Start: 04-12-2021 Plain chest X-ray Start: 04-12-2021 SARS-CoV-2 Antigen (Rapid) H/O: hysterectomy History of hysterectomy History of cholecystectomy History of cholecystectomy Urine culture Dr. Olivia Gates Work Phone: Plan of Treatment Date Care Activity Detail Author Start: 09-03-[address] [facility] Work Phone: Start: 08-22-2024 Patient discharge [facility] Start: 08-22-2024 Application of intermittent pneumatic compression device [facility] Start: 08-21-2024 Following clinical pathway protocol [facility] Start: 08-21-2024 Fall prevention [facility] Start: 08-21-2024 Introduction of urinary catheter [facility] Start: 08-21-2024 Oxygen therapy [facility] Start: 08-21-2024 Referral to occupational therapist [facility] Start: 08-21-2024 Referral to service [facility] Start: 08-21-2024 Admission procedure [facility] Start: 08-21-2024 Consultation [facility] Start: 08-21-2024 Application of device [facility] Start: 08-21-2024 Application of ice collar, cap or bag [facility] Start: 08-21-2024 Assessment of risk of venous thromboembolism [facility] Start: 08-21-2024 Catheterization of vein [facility] Start: 08-21-2024 Continuous positive airway pressure ventilation treatment [facility] Start: 08-21-2024 Following clinical pathway protocol [facility] Start: 08-21-2024 Incentive spirometry [facility] Start: 08-21-2024 Introduction of urinary catheter [facility] Start: 08-21-2024 Vital signs measurements [facility] Start: 08-21-2024 [facility] Start: 05-30-2024 Patient referral [facility] Work Phone: Start: 05-18-2024 [facility] Start: 08-21-2023 [facility] Start: 08-21-2023 [facility] Start: 02-24-2023 [facility] Start: 06-10-2022 [facility] Start: 12-23-2021 Patient discharge [facility] Work Phone: Start: 12-23-2021 Plain chest X-ray Chest PA and Lateral [facility] Work Phone: Start: 12-23-2021 XR Chest PA and Lateral [facility] Work Phone: Start: 12-23-2021 Inhalation therapy procedure [facility] Work Phone: Start: 12-22-2021 Following clinical pathway protocol [facility] Work Phone: Start: 12-22-2021 Ambulation without limitation [facility] Work Phone: Start: 12-22-2021 Assessment of risk of venous thromboembolism [facility] Work Phone: Start: 12-22-2021 Insertion of catheter into peripheral vein [facility] Work Phone: Start: 12-22-2021 Measuring intake and output [facility] Work Phone: Start: 12-22-2021 Notification of physician [facility] Work Phone: Start: 12-22-2021 Oxygen therapy [facility] Work Phone: Start: 12-22-2021 Patient referral to dietitian [facility] Work Phone: Start: 12-22-2021 Providing care according to standard [facility] Work Phone: Start: 12-22-2021 Tobacco use cessation education [facility] Work Phone: Start: 12-22-2021 [facility] Work Phone: Start: 12-22-2021 Admission procedure [facility] Work Phone: Start: 12-22-2021 Verification routine [facility] Work Phone: Start: 12-22-2021 [facility] Work Phone: CT Upper extremity W O contrast [facility] Patient Education [facility] Work Phone: Patient referral [facility] Work Phone: [facility] Immunizations Immunization Date Immunization Notes Care Provider Fa cility 12-01-2020 tetanus toxoid, redu jamee diphtheria toxoid, and acellular pertussis vaccine, adsorbed [facility] 09-08-2020 Covid (Moderna) Dr. Olivia ortiz Work Phone: [facility] 07-30-2020 Covid (Moderna) Dr. Olivia ortiz Work Phone: [facility] 01-08-2017 Influenza virus vaccine [facility] 03-25-2013 Pneumococcal Vaccine [facility] Work Phone: 03-25-2013 pneumococcal vaccine , unspecified formulation [facility] Payers Date Payer Category Payer Unknown [id number] 2024 Private Health Insurance 101 [id number] 2024 Self-pay [id number] 2014 Medicaid [id number] 2007 Medicare [id number] Unknown [id number] Unknown [id number] 2.16.8 [id number] Unknown [id number] 2.16.8 [id number] Unknown [id number] 2.16.8 40.1.529832.3.579.2.462 Unknown [id number] 2.16.8 40.1.238188.3.579.2.462 Unknown [id number] 2.16.8 40.1.112431.3.579.2.462 Unknown [id number] 2.16.8 40.1.612102.3.579.2.462 Unknown [id number] 2.16.8 40.1.292924.3.579.2.462 Unknown [id number] 2.16.8 40.1.263780.3.579.2.462 Unknown [id number] 2.16.8 40.1.030585.3.579.2.462 Unknown [id number] 2.16.8 40.1.286271.3.579.2.462 Unknown [id number] 2.16.8 40.1.978268.3.579.2.462 Unknown [id number] 2.16.8 40.1.138881.3.579.2.462 Unknown [id number] 2.16.8 40.1.855090.3.579.2.462 Unknown [id number] 2.16.8 40.1.957570.3.579.2.462 Unknown [id number] 2.16.8 40.1.237952.3.579.2.462 Unknown [id number] 2.16.8 40.1.495974.3.579.2.462 Unknown [id number] 2.16.8 40.1.357387.3.579.2.462 Unknown [id number] 2.16.8 40.1.342397.3.579.2.462 Unknown [id number] 2.16.8 40.1.562317.3.579.2.462 Unknown [id number] 2.16.8 40.1.991312.3.579.2.462 Social History Date Type Detail Facility Start: 05-22-2021 End: 08-21-2023 Tobacco smoking status ILIS Unknown if ever smoked [facility] Start: 07-04-2020 None [facility] Start: 08-14-2020 Alone [facility] Start: 07-04-2020 Non-smoker [facility] Start: 1955 Sex Assigned At Female [facility] Start: 05-30-2024 End: 08-16-2024 Tobacco smoking status NHIS Never smoked tobacco (finding) [facility] Start: 07-03-2024 Sex Female (finding) [facility] Not [facility] NEGATED: Highlighted row Not [facility] Medical Equipment Procedure Code Equipment Code Equipment Origin al Text Equipment Identifier Dates Arthroscopy, shoulder ([id number]) Tendon/ligament bone anchor, non-bioabsorbable [id number] FDA Start: 08-21-2024 Arthroscopy, shoulder Tendon/ligament bone anchor, bioabsorbable ()[id number] FDA Start: 08-21-2024 Goals Date Patient Goal Desired Activity /State Functional Status Date Assessment Result Facility 08-22-2024 Functional status Ambulates;Bath room Privilege;Back to bed [facility] Work Phone: 12-23-2021 Functional status Ambulates [facility] Work Phone: Mental Status Date Assessment Result Facility 08-22-2024 Cognitive function Voice/Name;Touch/Shaki ng [facility] Work Phone: 02-24-2023 Cognitive function Level Of Cons ciousness Awake;Alert;Appropriate [facility] Work Phone: 06-10-2022 Cognitive function Level Of Cons ciousness Awake;Alert;Appropriate;Follow s Commands [facility] Work Phone: 12-23-2021 Cognitive function Voice/Name [facility] Work Phone: 12-22-2021 Cognitive function Voice/Name [facility] Work Phone: 05-22-2021 Cognitive function Level Of Cons ciousness Awake;Alert;Appropriate;Follow s Commands [facility] Work Phone: Clinical Notes 11-07-2022 to 11-19-2024 Note Date & Type Note Facility 11-19-2024 Progress note [facility] 11-19-2024 Progress note Note Date/Time November 19, 2024 11:05am [facility] [address] [place] [address] [place] [address] OFFICE VISIT Date of Service: 11/19/24 MR#: [id number] Acct: [id number] Name: NENA KRISHNAN Rep #: [id number] : 1955 Provider: Dr. Luis Llanos MD Age/Sex: 69/F Location: [facility] Status: Signed Intake Vital Signs 10/28/24 11:19 Height 5 ft 3 in Weight: 245 lb BMI 43.4 Intake Visit Reasons: RIGHT SHOULDER Chief Complaint: right shoulder concerns Accompanied by: Self Is patient in pain?: Yes Pain scale (1-10): 10 Allergies No Known Allergies Allergy (Verified 11/19/24 10:49) Medications ?Medication ?Instructions ?Recorded ?Confirmed ?Type paroxetine HCl 40 mg tablet (Paxil) 40 mg PO DAILY dep ression 01/29/13 11/19/24 History trazodone 50 mg tablet 50 mg PO QHS sleep 01/29/13 11/19/24 History esomeprazole magnesium 40 mg 40 mg PO BID GERD 5 11/19/24 History capsule,delayed release (Nexium) lorazepam 1 mg tablet 2 mg PO BID anxiety 10/11/16 11/19/24 History cholecalciferol (vitamin D3) 1,250 50,000 units PO KEITA Vit D deficiency 05/20/17 11/19/24 History mcg (50,000 unit) capsule budesonide 180 mcg/actuation 2 puff inhalation BID SOB /wheezing 12/13/17 11/19/24 History breath activated powder inhaler (Pulmicort Flexhaler) losartan 50 mg tablet 50 mg PO DAILY blood pressur e 07/04/20 11/19/24 History montelukast 10 mg tablet 10 mg PO DAILY allergies 11/19/24 History albuterol sulfate 90 mcg/actuation 1 - 2 puff inhalati on Q4H PRN PRN 04/13/21 11/19/24 Rx aerosol inhaler (Ventolin HFA) Wheezing #8.5 grams azelastine 137 mcg (0.1 %) nasal 2 spray intranasal BI D PRN 12/22/21 11/19/24 History spray antihistamine albuterol sulfate 2.5 mg/3 mL 2.5 mg inhalation 4X/DAY PRN PRN 08/16/24 11/19/24 History (0.083 %) solution for nebulization shortness of breat h or wheezing levothyroxine 88 mcg tablet 88 mcg PO DAILY 08/16/24 0 11/19/24 History Have you fallen in the past year?: No PFSH Medical History RAJNI (obstructive sleep apnea) Morbid obesity Allergic rhinitis Asthma Urinary incontinence Anxiety and depression Wears glasses Wears dentures Post-menopausal Ambulates with cane Arthritis History of hiatal hernia Non-smoker Persistent dry cough History of stress test History of echocardiogram Hx of fracture of wrist 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, right shoulder Right rotator cuff tear Pulmonary hypertension GERD (gastroesophageal reflux disease) Hypothyroidism HTN (hypertension) Chronic back pain Surgical History S/P rotator cuff repair History of esophagogastroduodenoscopy (EGD) Hx of colonoscopy History of back surgery History of cholecystectomy History of hysterectomy History of back surgery History of hernia repair Family History Father Cancer Mother Cancer Sister Cancer Brother Cancer Social History household members: children Smoking Status: Never smoker second hand exposure: No alcohol intake: never substance use type: does not use HPI RIGHT SHOULDER Details: This documentation accurately reflects the service provided and the decisions made by me, Dr. Macario Llanos MD 11/19/24 0850. Part of today?s visit was documented by [ ], acting as scribe. NENA KRISHNAN is a 69 year old F here today for 4 months FU Right shoulder arthroscopy, subacromial decompression, debridement, distal clavicle excision, rotator cuff repair. Still having quite a bit of pain and stiffness. Interested to consider RTSA at this point. There is popping and crepitus with even down little range of motion. Therapy seems to be making it worse. Coding Level of Care Code Off vis,est,level 3 Diagnoses Arthrosis of right acromioclavicular joint M19.011 Primary osteoarthritis, right shoulder M19.011 Right rotator cuff tear M75.101 Assessment and Plan Assessment and Plan (1) Arthrosis of right acromioclavicular joint: Status: Acute Plan: NENA KRISHNAN is a 69 year old F here today for 4 months FU Right shoulder arthroscopy, subacromial decompression, debridement, distal clavicle excision, rotator cuff repair. Still having quite a bit of pain and stiffness. Interested to consider RTSA at this point. I think the OA was still a reasonable option totry a lower risk surgery but at this point given the arthroscopic findings of grade 3 and 4 changes of the proximal humerus the next logical step here would be to consider reverse total shoulder arthroplasty. We have discussed the pros and cons risks and benefits of going ahead with that and I will order a CT scan for surgical planning. The patient understands we will follow-up after the test. (2) Primary osteoarthritis, right shoulder: Status: Acute (3) Right rotator cuff tear: Status: Acute Clinical Quality Measures Falls Risk Screening/Assistive Devices Have you fallen in the past year?: No Ortho Exam General General: Yes no acute distress Neurologic: Yes alert and Yes oriented x3 Psychologic: Yes reasonable and appropriate Right Shoulder Skin/Wound: Yes CDI, Yes healed, No ecchymosis, No erythema and No swelling SHOULDER: nvi including ax nerve. strong rad pulse. Pain with passive range of motion beyond 30 degrees of forward elevation in neutral of external rotation. Portal sites are well-healed free of complications no redness or warmth or drainage. passive ROM 170 FE, 45 ER. weak in FE. 11/19/24 1105 <Electronically signed by Macario barry MD> Date _ Macario Llanos MD [facility] Signature: Date (if applicable) CC: ~ [facility] Work Phone: 1(173) 231-733507-21-2025 Progress [facility] [address] [place] [address] OFFICE VISIT Date of Service: 10/28/24 MR#: [id number] Acct: [id number] Name: NENA KRISHNAN Rep #: [id number] : 1955 Provider: Dr. Luis Llanos MD Age/Sex: 69/F Location: [facility] Status: Signed Intake Vital Signs 09/03/24 10:11 10/28/24 11:19 Height 5 ft 3 in 5 ft 3 in Weight: 240 lb 245 lb BMI 42.5 43.4 Intake Visit Reasons: RIGHT SHOULDER Chief Complaint: right shoulder post op Accompanied by: Great grand daughter Is patient in pain?: Yes Pain scale (1-10): 3 Allergies No Known Allergies Allergy (Verified 10/28/24 11:22) Medications ?Medication ?Instructions ?Recorded ?Confirmed ?Type paroxetine HCl 40 mg tablet (Paxil) 40 mg PO DAILY dep ression 01/29/13 10/28/24 History trazodone 50 mg tablet 50 mg PO QHS sleep 01/29/13 10/28/24 History esomeprazole magnesium 40 mg 40 mg PO BID GERD 5 10/28/24 History capsule,delayed release (Nexium) lorazepam 1 mg tablet 2 mg PO BID anxiety 10/11/16 10/28/24 History cholecalciferol (vitamin D3) 1,250 50,000 units PO KEITA Vit D deficiency 05/20/17 10/28/24 History mcg (50,000 unit) capsule budesonide 180 mcg/actuation 2 puff inhalation BID SOB /wheezing 12/13/17 10/28/24 History breath activated powder inhaler (Pulmicort Flexhaler) losartan 50 mg tablet 50 mg PO DAILY blood pressur e 07/04/20 10/28/24 History montelukast 10 mg tablet 10 mg PO DAILY allergies 10/28/24 History albuterol sulfate 90 mcg/actuation 1 - 2 puff inhalati on Q4H PRN PRN 04/13/21 10/28/24 Rx aerosol inhaler (Ventolin HFA) Wheezing #8.5 grams azelastine 137 mcg (0.1 %) nasal 2 spray intranasal BI D PRN 12/22/21 10/28/24 History spray antihistamine albuterol sulfate 2.5 mg/3 mL 2.5 mg inhalation 4X/DAY PRN PRN 08/16/24 10/28/24 History (0.083 %) solution for nebulization shortness of breat h or wheezing levothyroxine 88 mcg tablet 88 mcg PO DAILY 08/16/24 0 10/28/24 History prednisone 10 mg tablets in a dose See Rx Instructions PO PER PKG DIR 09/27/24 10/28/24 Rx pack pain #21 tabs Have you fallen in the past year?: No PFSH Medical History RAJNI (obstructive sleep apnea) Morbid obesity Allergic rhinitis Asthma Urinary incontinence Anxiety and depression Wears glasses Wears dentures Post-menopausal Ambulates with cane Arthritis History of hiatal hernia Non-smoker Persistent dry cough History of stress test History of echocardiogram Hx of fracture of wrist 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, right shoulder Right rotator cuff tear Pulmonary hypertension GERD (gastroesophageal reflux disease) Hypothyroidism HTN (hypertension) Chronic back pain Surgical History S/P rotator cuff repair History of esophagogastroduodenoscopy (EGD) Hx of colonoscopy History of back surgery History of cholecystectomy History of hysterectomy History of back surgery History of hernia repair Family History Father Cancer Mother Cancer Sister Cancer Brother Cancer Social History household members: children Smoking Status: Never smoker second hand exposure: No alcohol intake: never substance use type: does not use HPI RIGHT SHOULDER Details: This documentation accurately reflects the service provided and the decisions made by me, Dr. Roberto Carlos MD 10/28/24 0830. Part of today?s visit was documented by [ ], acting as scribe. NENA KRISHNAN is a 69 year old F here today for 3 months FU Right shoulder arthroscopy, subacromial decompression, debridement, distal clavicle excision, rotator cuff repair. Patient was given a cortisone injection at the last visit about 6 weeks ago for some postop irritation possible tightness in the capsule. had a few days of relief from the injection but still painful. Has been working on some strengthening now just for about 2 weeks. Coding Level of Care Code Global Post Op Diagnoses Arthrosis of right acromioclavicular joint M19.011 Primary osteoarthritis, right shoulder M19.011 Right rotator cuff tear M75.101 Right shoulder pain M25.511 Assessment and Plan Assessment and Plan (1) Arthrosis of right acromioclavicular joint: Status: Acute Plan: NENA KRISHNAN is a 69 year old F here today for 3 months FU Right shoulder arthroscopy, subacromial decompression, debridement, distal clavicle excision, rotator cuff repair. Patient was given a cortisone injection at the last visit about 6 weeks ago for some postop irritation possible tightness in the capsule. At this point the patient has just started some light strengthening with some weakness of the shoulder. I think this is related to deconditioning and pain. I will give the patient another 6 months time to fully recover some of the pain could be as well from the grade 3-4 arthritic changes in the shoulder I can get flared up after an arthroscopy as well. If this fails after 9 months to a year could consider a reverse total shoulder arthroplasty. I would like the patient to do some light strengthening and follow-up in 6 months time. (2) Primary osteoarthritis, right shoulder: Status: Acute (3) Right rotator cuff tear: Status: Acute (4) Right shoulder pain: Status: Acute Clinical Quality Measures Falls Risk Screening/Assistive Devices Have you fallen in the past year?: No Ortho Exam General General: Yes no acute distress Neurologic: Yes alert and Yes oriented x3 Psychologic: Yes reasonable and appropriate Right Shoulder Skin/Wound: Yes CDI, Yes healed, No ecchymosis, No erythema and No swelling SHOULDER: nvi including ax nerve. strong rad pulse. Pain with passive range of motion beyond 30 degrees of forward elevation in neutral of external rotation. Portal sites are well-healed free of complications no redness or warmth or drainage. passive ROM 170 FE, 45 ER. weak in FE. 10/28/24 1135 n MD> Date _ Macario Shelbyign Signature: Date (if applicable) CC: ~ [facility]07-21-2025 Progress note Author Macario Llanos [facility] Note Date/Time October 28, 2024 11:3 5am [facility] [address] [place] [id number] OFFICE VISIT Date of Service: 10/28/24 MR#: [id number] Acct: [id number] Name: NENA KRISHNAN Rep #: [id number] : 1955 Provider: Dr. Luis Llanos MD Age/Sex: 69/F Location: [facility] Status: Signed Intake Vital Signs 09/03/24 10:11 10/28/24 11:19 Height 5 ft 3 in 5 ft 3 in Weight: 240 lb 245 lb BMI 42.5 43.4 Intake Visit Reasons: RIGHT SHOULDER Chief Complaint: right shoulder post op Accompanied by: Great grand daughter Is patient in pain?: Yes Pain scale (1-10): 3 Allergies No Known Allergies Allergy (Verified 10/28/24 11:22) Medications ?Medication ?Instructions ?Recorded ?Confirmed ?Type paroxetine HCl 40 mg tablet (Paxil) 40 mg PO DAILY dep ression 01/29/13 10/28/24 History trazodone 50 mg tablet 50 mg PO QHS sleep 01/29/13 10/28/24 History esomeprazole magnesium 40 mg 40 mg PO BID GERD 5 10/28/24 History capsule,delayed release (Nexium) lorazepam 1 mg tablet 2 mg PO BID anxiety 10/11/16 10/28/24 History cholecalciferol (vitamin D3) 1,250 50,000 units PO KEITA Vit D deficiency 05/20/17 10/28/24 History mcg (50,000 unit) capsule budesonide 180 mcg/actuation 2 puff inhalation BID SOB /wheezing 12/13/17 10/28/24 History breath activated powder inhaler (Pulmicort Flexhaler) losartan 50 mg tablet 50 mg PO DAILY blood pressur e 07/04/20 10/28/24 History montelukast 10 mg tablet 10 mg PO DAILY allergies 10/28/24 History albuterol sulfate 90 mcg/actuation 1 - 2 puff inhalati on Q4H PRN PRN 04/13/21 10/28/24 Rx aerosol inhaler (Ventolin HFA) Wheezing #8.5 grams azelastine 137 mcg (0.1 %) nasal 2 spray intranasal BI D PRN 12/22/21 10/28/24 History spray antihistamine albuterol sulfate 2.5 mg/3 mL 2.5 mg inhalation 4X/DAY PRN PRN 08/16/24 10/28/24 History (0.083 %) solution for nebulization shortness of breat h or wheezing levothyroxine 88 mcg tablet 88 mcg PO DAILY 08/16/24 0 10/28/24 History prednisone 10 mg tablets in a dose See Rx Instructions PO PER PKG DIR 09/27/24 10/28/24 Rx pack pain #21 tabs Have you fallen in the past year?: No PFSH Medical History RAJNI (obstructive sleep apnea) Morbid obesity Allergic rhinitis Asthma Urinary incontinence Anxiety and depression Wears glasses Wears dentures Post-menopausal Ambulates with cane Arthritis History of hiatal hernia Non-smoker Persistent dry cough History of stress test History of echocardiogram Hx of fracture of wrist 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, right shoulder Right rotator cuff tear Pulmonary hypertension GERD (gastroesophageal reflux disease) Hypothyroidism HTN (hypertension) Chronic back pain Surgical History S/P rotator cuff repair History of esophagogastroduodenoscopy (EGD) Hx of colonoscopy History of back surgery History of cholecystectomy History of hysterectomy History of back surgery History of hernia repair Family History Father Cancer Mother Cancer Sister Cancer Brother Cancer Social History household members: children Smoking Status: Never smoker second hand exposure: No alcohol intake: never substance use type: does not use HPI RIGHT SHOULDER Details: This documentation accurately reflects the service provided and the decisions made by me, Dr. Macario Llanos MD 10/28/24 6063. Part of today?s visit was documented by [ ], acting as scribe. NENA KRISHNAN is a 69 year old F here today for 3 months FU Right shoulder arthroscopy, subacromial decompression, debridement, distal clavicle excision, rotator cuff repair. Patient was given a cortisone injection at the last visit about 6 weeks ago for some postop irritation possible tightness in the capsule. had a few days of relief from the injection but still painful. Has been working on some strengthening now just for about 2 weeks. Coding Level of Care Code Global Post Op Diagnoses Arthrosis of right acromioclavicular joint M19.011 Primary osteoarthritis, right shoulder M19.011 Right rotator cuff tear M75.101 Right shoulder pain M25.511 Assessment and Plan Assessment and Plan (1) Arthrosis of right acromioclavicular joint: Status: Acute Plan: NENA KRISHNAN is a 69 year old F here today for 3 months FU Right shoulder arthroscopy, subacromial decompression, debridement, distal clavicle excision, rotator cuff repair. Patient was given a cortisone injection at the last visit about 6 weeks ago for some postop irritation possible tightness in the capsule. At this point the patient has just started some light strengthening with some weakness of the shoulder. I think this is related to deconditioning and pain. I will give the patient another 6 months time to fully recover some of the pain could be as well from the grade 3-4 arthritic changes in the shoulder I can get flared up after an arthroscopy as well. If this fails after 9 months to a year could consider a reverse total shoulder arthroplasty. I would like the patient to do some light strengthening and follow-up in 6 months time. (2) Primary osteoarthritis, right shoulder: Status: Acute (3) Right rotator cuff tear: Status: Acute (4) Right shoulder pain: Status: Acute Clinical Quality Measures Falls Risk Screening/Assistive Devices Have you fallen in the past year?: No Ortho Exam General General: Yes no acute distress Neurologic: Yes alert and Yes oriented x3 Psychologic: Yes reasonable and appropriate Right Shoulder Skin/Wound: Yes CDI, Yes healed, No ecchymosis, No erythema and No swelling SHOULDER: nvi including ax nerve. strong rad pulse. Pain with passive range of motion beyond 30 degrees of forward elevation in neutral of external rotation. Portal sites are well-healed free of complications no redness or warmth or drainage. passive ROM 170 FE, 45 ER. weak in FE. 10/28/24 1135 <Electronically signed by Macario barry MD> Date _ Macario Llanos MD [facility] Signature: Date (if applicable) CC: ~ [facility] Work Phone: [phone] Progress [facility] [address] [place] [address] [address] [place] [address] OFFICE VISIT Date of Service: 10/01/24 MR#: [id number] Acct: [id number] Name: NENA KRISHNAN Rep #: [id number] : 1955 Provider: Dr. Luis Llanos MD Age/Sex: 69/F Location: [facility] Status: Signed Intake Vital Signs 09/03/24 10:11 Height 5 ft 3 in Weight: 240 lb BMI 42.5 Intake Visit Reasons: RIGHT SHOULDER Chief Complaint: right shoulder post op Accompanied by: Self Is patient in pain?: Yes Pain scale (1-10): 4 Allergies No Known Allergies Allergy (Verified 10/01/24 11:07) Medications ?Medication ?Instructions ?Recorded ?Confirmed ?Type paroxetine HCl 40 mg tablet (Paxil) 40 mg PO DAILY dep ression 01/29/13 10/01/24 History trazodone 50 mg tablet 50 mg PO QHS sleep 01/29/13 10/01/24 History esomeprazole magnesium 40 mg 40 mg PO BID GERD 5 10/01/24 History capsule,delayed release (Nexium) lorazepam 1 mg tablet 2 mg PO BID anxiety 10/11/16 10/01/24 History cholecalciferol (vitamin D3) 1,250 50,000 units PO KEITA Vit D deficiency 05/20/17 10/01/24 History mcg (50,000 unit) capsule budesonide 180 mcg/actuation 2 puff inhalation BID SOB /wheezing 12/13/17 10/01/24 History breath activated powder inhaler (Pulmicort Flexhaler) losartan 50 mg tablet 50 mg PO DAILY blood pressur e 07/04/20 10/01/24 History montelukast 10 mg tablet 10 mg PO DAILY allergies 10/01/24 History albuterol sulfate 90 mcg/actuation 1 - 2 puff inhalati on Q4H PRN PRN 04/13/21 10/01/24 Rx aerosol inhaler (Ventolin HFA) Wheezing #8.5 grams azelastine 137 mcg (0.1 %) nasal 2 spray intranasal BI D PRN 12/22/21 10/01/24 History spray antihistamine albuterol sulfate 2.5 mg/3 mL 2.5 mg inhalation 4X/DAY PRN PRN 08/16/24 10/01/24 History (0.083 %) solution for nebulization shortness of breat h or wheezing levothyroxine 88 mcg tablet 88 mcg PO DAILY 08/16/24 0 10/01/24 History prednisone 10 mg tablets in a dose See Rx Instructions PO PER PKG DIR 09/27/24 10/01/24 Rx pack pain #21 tabs Have you fallen in the past year?: No PFSH Medical History RAJNI (obstructive sleep apnea) Morbid obesity Allergic rhinitis Asthma Urinary incontinence Anxiety and depression Wears glasses Wears dentures Post-menopausal Ambulates with cane Arthritis History of hiatal hernia Non-smoker Persistent dry cough History of stress test History of echocardiogram Hx of fracture of wrist 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, right shoulder Right rotator cuff tear Pulmonary hypertension GERD (gastroesophageal reflux disease) Hypothyroidism HTN (hypertension) Chronic back pain Surgical History S/P rotator cuff repair History of esophagogastroduodenoscopy (EGD) Hx of colonoscopy History of back surgery History of cholecystectomy History of hysterectomy History of back surgery History of hernia repair Family History Father Cancer Mother Cancer Sister Cancer Brother Cancer Social History household members: children Smoking Status: Never smoker second hand exposure: No alcohol intake: never substance use type: does not use HPI RIGHT SHOULDER Details: This documentation accurately reflects the service provided and the decisions made by me, Dr. Roberto Carlos MD 10/01/24 0844. Part of today?s visit was documented by [ ], acting as scribe. NENA KRISHNAN is a 69 year old F here today for 6 weeks FU Right shoulder arthroscopy, subacromialdecompression, debridement, distal clavicle excision, rotator cuff repair. Patient does complain ofshoulder pain it is quite sore with gentle range of motion even. Has tried therapy but stopped doing it for pain. There is been no redness swelling or drainage no signs of infection no constitutionalsymptoms. Coding Level of Care Code Attention Dee Dee Diagnoses Arthrosis of right acromioclavicular joint M19.011 Primary osteoarthritis, right shoulder M19.011 Right rotator cuff tear M75.101 Right shoulder pain M25.511 Comment CPT inject major joint Assessment and Plan Assessment and Plan (1) Arthrosis of right acromioclavicular joint: Status: Acute Plan: 69 year old F here today for 6 weeks FU Right shoulder arthroscopy, subacromial decompression, debridement, distal clavicle excision, rotator cuff repair. Patient most likely has some bursitis and irritation postsurgery as well as could have an early adhesive capsulitis or other problems causing postoperative pain and stiffness. I suggest we start with 2 weeks off from physical therapy gradual get back into that as well as a cortisone injection of the shoulder theywill follow-up in 4 weeks timeto make sure that they are making progress in terms of range of motion. Also has a little postoperative deconditioning of thedeltoid. Patient understands no further questions or concerns will follow-up juana month's time. Pros and cons risks and benefits of a right shoulder subacromial steroid injection were discussed. Patient wished to proceed. Risks include but not limited to infection, pain, stiffness, damage to other structures, neurovascularinjury, wear further tear of the tendon and other structures such as the skin, bleeding, allergic reaction, acute flare reaction and other risks. Obtained informed consent for injection. Posterior lateral aspect of the shoulder was prepped with chlorhexidine solutionallowed to thoroughly dry over 3 minutes. Used Gebauer spray per bottle instructions. Using sterile technique, injectedthe right subacromial joint with a 4cc 0.25% bupivacaine and 2cc 40 mg/mL kenalog. Bandage placed. The patient tolerated the injection well without any noted complication. Red flag symptoms were discussed such as redness, swelling, discharge, drainage, pain worsens or if they have any concerns to present to the ED or to call the clinic immediately. (2) Primary osteoarthritis, right shoulder: Status: Acute (3) Right rotator cuff tear: Status: Acute (4) Right shoulder pain: Status: Acute Clinical Quality Measures Falls Risk Screening/Assistive Devices Have you fallen in the past year?: No Ortho Exam General General: Yes no acute distress Neurologic: Yes alert and Yes oriented x3 Psychologic: Yes reasonable and appropriate Right Shoulder Skin/Wound: Yes CDI, Yes healed, No ecchymosis, No erythema and No swelling SHOULDER: nvi including ax nerve. strong rad pulse. Pain with passive range of motion beyond 30 degrees of forward elevation in neutral of external rotation. Portal sites are well-healed free of complications no redness or warmth or drainage 10/01/24 1121 n MD> Date _ Macario Llanos MD [employer] Signature: Date (if applicable) CC: ~ [facility]06-24-2025 Progress note Author Macario Llanos [facility] Note Date/Time October 01, 2024 11:2 1am [facility] [address] [place] [address] OFFICE VISIT Date of Service: 10/01/24 MR#: [id number] Acct: [id number] Name: MORE KRISHNANCA Magen Rep #: [id number] : 1955 Provider: Dr. Luis Llanos MD Age/Sex: 69/F Location: [facility] Status: Signed Intake Vital Signs 09/03/24 10:11 Height 5 ft 3 in Weight: 240 lb BMI 42.5 Intake Visit Reasons: RIGHT SHOULDER Chief Complaint: right shoulder post op Accompanied by: Self Is patient in pain?: Yes Pain scale (1-10): 4 Allergies No Known Allergies Allergy (Verified 10/01/24 11:07) Medications ?Medication ?Instructions ?Recorded ?Confirmed ?Type paroxetine HCl 40 mg tablet (Paxil) 40 mg PO DAILY dep ression 01/29/13 10/01/24 History trazodone 50 mg tablet 50 mg PO QHS sleep 01/29/13 10/01/24 History esomeprazole magnesium 40 mg 40 mg PO BID GERD 5 10/01/24 History capsule,delayed release (Nexium) lorazepam 1 mg tablet 2 mg PO BID anxiety 10/11/16 10/01/24 History cholecalciferol (vitamin D3) 1,250 50,000 units PO KEITA Vit D deficiency 05/20/17 10/01/24 History mcg (50,000 unit) capsule budesonide 180 mcg/actuation 2 puff inhalation BID SOB /wheezing 12/13/17 10/01/24 History breath activated powder inhaler (Pulmicort Flexhaler) losartan 50 mg tablet 50 mg PO DAILY blood pressur e 07/04/20 10/01/24 History montelukast 10 mg tablet 10 mg PO DAILY allergies 10/01/24 History albuterol sulfate 90 mcg/actuation 1 - 2 puff inhalati on Q4H PRN PRN 04/13/21 10/01/24 Rx aerosol inhaler (Ventolin HFA) Wheezing #8.5 grams azelastine 137 mcg (0.1 %) nasal 2 spray intranasal BI D PRN 12/22/21 10/01/24 History spray antihistamine albuterol sulfate 2.5 mg/3 mL 2.5 mg inhalation 4X/DAY PRN PRN 08/16/24 10/01/24 History (0.083 %) solution for nebulization shortness of breat h or wheezing levothyroxine 88 mcg tablet 88 mcg PO DAILY 08/16/24 0 10/01/24 History prednisone 10 mg tablets in a dose See Rx Instructions PO PER PKG DIR 09/27/24 10/01/24 Rx pack pain #21 tabs Have you fallen in the past year?: No PFSH Medical History RAJNI (obstructive sleep apnea) Morbid obesity Allergic rhinitis Asthma Urinary incontinence Anxiety and depression Wears glasses Wears dentures Post-menopausal Ambulates with cane Arthritis History of hiatal hernia Non-smoker Persistent dry cough History of stress test History of echocardiogram Hx of fracture of wrist 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, right shoulder Right rotator cuff tear Pulmonary hypertension GERD (gastroesophageal reflux disease) Hypothyroidism HTN (hypertension) Chronic back pain Surgical History S/P rotator cuff repair History of esophagogastroduodenoscopy (EGD) Hx of colonoscopy History of back surgery History of cholecystectomy History of hysterectomy History of back surgery History of hernia repair Family History Father Cancer Mother Cancer Sister Cancer Brother Cancer Social History household members: children Smoking Status: Never smoker second hand exposure: No alcohol intake: never substance use type: does not use HPI RIGHT SHOULDER Details: This documentation accurately reflects the service provided and the decisions made by me, Dr. Macario Llanos MD 10/01/24 1531. Part of today?s visit was documented by [ ], acting as scribe. NENA KRISHNAN is a 69 year old F here today for 6 weeks FU Right shoulder arthroscopy, subacromial decompression, debridement, distal clavicle excision, rotator cuff repair. Patient does complain of shoulder pain it is quite sore with gentle range of motion even. Has tried therapy but stopped doing it for pain. There is been no redness swelling or drainage no signs of infection no constitutional symptoms. Coding Level of Care Code Attention Foreign Law Consultant Diagnoses Arthrosis of right acromioclavicular joint M19.011 Primary osteoarthritis, right shoulder M19.011 Right rotator cuff tear M75.101 Right shoulder pain M25.511 Comment CPT inject major joint Assessment and Plan Assessment and Plan (1) Arthrosis of right acromioclavicular joint: Status: Acute Plan: 69 year old F here today for 6 weeks FU Right shoulder arthroscopy, subacromial decompression, debridement, distal clavicle excision, rotator cuff repair. Patient most likely has some bursitis and irritation postsurgery as well as could have an early adhesive capsulitis or other problems causing postoperative pain and stiffness. I suggest we start with 2 weeks off from physical therapy gradual get back into that as well as a cortisone injection of the shoulder theywill follow-up in 4 weeks time to make sure that they are making progress in terms of range of motion. Also has a little postoperative deconditioning of thedeltoid. Patient understands no further questions or concerns will follow-up juana month's time. Pros and cons risks and benefits of a right shoulder subacromial steroid injection were discussed. Patient wished to proceed. Risks include but not limited to infection, pain, stiffness, damage to other structures, neurovascularinjury, wear further tear of the tendon and other structures such as the skin, bleeding, allergic reaction, acute flare reaction and other risks. Obtained informed consent for injection. Posterior lateral aspect of the shoulder was prepped with chlorhexidine solutionallowed to thoroughly dry over 3 minutes. Used Gebauer spray per bottle instructions. Using sterile technique, injected the right subacromial joint with a 4cc 0.25% bupivacaine and 2cc 40 mg/mL kenalog. Bandage placed. The patient tolerated the injection well without any noted complication. Red flag symptoms were discussed such as redness, swelling, discharge, drainage, pain worsens or if they have any concerns to present to the ED or to call the clinic immediately. (2) Primary osteoarthritis, right shoulder: Status: Acute (3) Right rotator cuff tear: Status: Acute (4) Right shoulder pain: Status: Acute Clinical Quality Measures Falls Risk Screening/Assistive Devices Have you fallen in the past year?: No Ortho Exam General General: Yes no acute distress Neurologic: Yes alert and Yes oriented x3 Psychologic: Yes reasonable and appropriate Right Shoulder Skin/Wound: Yes CDI, Yes healed, No ecchymosis, No erythema and No swelling SHOULDER: nvi including ax nerve. strong rad pulse. Pain with passive range of motion beyond 30 degrees of forward elevation in neutral of external rotation. Portal sites are well-healed free of complications no redness or warmth or drainage 10/01/24 1121 <Electronically signed by Macario barry MD> Date _ Macario Llanos MD Cos[employer] Signature: Date (if applicable) CC: ~ [facility] Work Phone: [phone] Discharge summary Author Macario Llanos [facility] Note Date/Time August 22, 2024 11:06 am [facility] Medical Records Department [address] [place] [address] Discharge Summary 08/22/24 1105 MR#: [id number] Acct: [id number] Name: NENA KRISHNAN Rep #:[id number] : 1955 69 From: Macario Llanos MD PCP: Dr. Olivia Gates DO Status:ADM IN Location: [place] [address] Providers Date of Admission: 08/21/24 Primary Care Physician: Dr. Olivia Gates DO Consultations 08/21/24 15:06 Consult: Hospitalist Routine Consulting Provider: Leana Vaca Reason for Consult: Hypoxia post-op RT Shoulder Arthroscopy, Subacrom Decompress, etc... EMERGENT Consult: No MD Notified: Yes Date Notified: 08/21/24 Time Notified: 15:06 Method of Notification: Text Comments:: DR LLANOS TO CONTACT HOPSITALIST Reason For Visit: Right shoulder Arthroscopy, subacromial decompress Diagnosis Discharge Diagnosis (1) Right shoulder pain: Status: Acute Code(s): M25.511 - Pain in right shoulder Medications at Discharge Home Medications paroxetine HCl 40 mg tablet (Paxil) 40 mg PO DAILY depression 01/29/13 trazodone 50 mg tablet 50 mg PO QHS sleep 01/29/13 esomeprazole magnesium 40 mg capsule,delayed release (Nexium) 40 mg PO BID GERD 05/16/14 lorazepam 1 mg tablet 2 mg PO BID anxiety 10/11/16 cholecalciferol (vitamin D3) 1,250 mcg (50,000 unit) capsule 50,000 units PO KEITA Vit D deficiency 05/20/17 hydrocodone-acetaminophen 5-325mg 5mg-325mg ([place]) 1 ea PO TID PRN Pain 03/15/18 budesonide 180 mcg/actuation breath activated powder inhaler (Pulmicort Flexhaler) 2 puff inhalation BID SOB/wheezing 12/13/17 losartan 50 mg tablet 50 mg PO DAILY blood pressure 07/04/20 montelukast 10 mg tablet 10 mg PO DAILY allergies 07/04/20 albuterol sulfate 90 mcg/actuation aerosol inhaler (Ventolin HFA) 1 - 2 puff inhalation Q4H PRN PRN Wheezing #8.5 grams 04/13/21 azelastine 137 mcg (0.1 %) nasal spray 2 spray intranasal BID PRN antihistamine 12/22/21 albuterol sulfate 2.5 mg/3 mL (0.083 %) solution for nebulization 2.5 mg inhalation 4X/DAY PRN PRN shortness of breath or wheezing 08/16/24 levothyroxine 88 mcg tablet 88 mcg PO DAILY 08/16/24 oxycodone-acetaminophen 5 mg-325 mg tablet (Percocet) 1 tab PO Q4H PRN pain 4 days #30 tabs 08/21/24 Hospital Course Operations arthroscopy, shoulder Summary of Care Provided Minutes Spent on Discharge: 10 Physical Exam Const oriented x3 and no apparent distress Constitutional Narrative: sats stable on room air Weight / BMI Weight Weight: 238 lb 1.588 oz Body Mass Index (BMI) 0.0 ABG / Lab / Microbiology Data 08/22/24 06:24 08/22/24 06:24 Laboratory: Laboratory Results - last 24 hr 08/22/24 06:24: WBC 16.3 H, RBC 4.26, Hgb 10.6 L, Hct 34.4 L, MCV 80.8 L, MCH 24.9 L, MCHC 30.8 L, RDW Std Deviation 49.1 H, RDW Coeff of Patrick 16.8 H, Plt Count 343, MPV 9.2, Immature Gran % (Auto) 0.500, Neut % (Auto) 77.1 H, Lymph % (Auto) 16.0 L, [place] % (Auto) 6.3, Eos % (Auto) 0.0, Baso % (Auto) 0.1, Absolute Neuts (auto) 12.6 H, Absolute Lymphs (auto) 2.61, Nucleated RBC % 0, Sodium 139,Potassium 3.8, Chloride 105, Carbon Dioxide 24.5, Anion Gap 10, BUN 16, Creatinine 0.81, Estim Creat Clear Calc 110.19, Est GFR (MDRD) Non-Af 78, BUN/Creatinine Ratio 20.2 H, Glucose 149 H, Calcium 8.7, Total Bilirubin < 0.15, AST 20, ALT 10, Alkaline Phosphatase 81, Total Protein 6.3, Albumin 3.4, Globulin 2.8, Albumin/Globulin Ratio 1.2 D/C Instructions Discharge Diet: No restrictions Ice area for (Minutes): 10 Additional Activity Instructions: ok for hand wrist elbow rom, ok to remove sling at rest. Call your doctor if your incision/area has: Continuous Slow Oozing, Sudden Increased Bleeding, Increased Pain/ Swelling, Increased Redness, Foul Smelling Discharge and Swelling at the incision site Call your doctor if you observe: Fever of 101 or Higher, Coldness, Increased Pain and Numbness or Tingling Cleanse incision/area with: Do not get Incision Wet Additional Dressing/Incision Instructions: ok to change dressing as needed, keepincisions covered, leave tapes (steri strips) in place DC O2, CPAP, BIPAP Needs Home O2 Discharge instructions: No Please Follow Up With: Macario Llanos MD When: next week Meaningful Use Info Meaningful Use Meaningful Use Diagnoses (Choose all that apply): None applicable Ischemic Stroke Statin Dosing Therapy Reference: STATIN DOSE THERAPY REFERENCE: * Patients > 75 years receive moderate or high dose statin therapy. * Patients 75 years or YOUNGER should receive HIGH intensity statin dose unless contraindicated. You will be required to document reason for non-treatment if statin daily dose does not meet guidelines. HIGH DOSE STATIN THERAPY DAILY Atorvastatin > than or = to 40 mg Rosuvastatin > than or = to 20 mg Amlodipine + Atorvastatin > than or = to 2.5/40 mg Ezetimibe + Simvastatin 10/80 mg Simvastatin 80mg Discharge Plan Admission Admit Date/Time: 08/21/24 15:46 Primary Reason for Your Visit: post op admit for low sats after shoulder arthroscopy Attending Provider: Macario Llanos Primary Care Provider: Olivia Gates Consulting Providers: Leana Vaca; Chaz Ortiz Instructions Patient Instructions: After Shoulder Arthroscopy Discharge Orders/Prescriptions Prescriptions: New oxycodone-acetaminophen [Percocet] 5-325 mg tablet 1 tab PO Q4H MDD 6 PRN (Reason: pain) 4 Days Qty: 30 0RF No Action paroxetine HCl [Paxil] 40 MG tablet 40 mg PO DAILY trazodone 50 MG tablet 50 mg PO QHS esomeprazole magnesium [Nexium] 40 MG capsule 40 mg PO BID lorazepam 1 MG tablet 2 mg PO BID cholecalciferol (vitamin D3) 50,000 UNIT capsule 50,000 units PO KEITA Patient Comments: takes q monday Rx Instructions: takes on monday hydrocodone-acetaminophen [[place]] 1 EACH tablet 1 ea PO TID PRN (Reason: Pain) Pulmicort Flexhaler 1 PUFF inhaler 2 puff inhalation BID Patient Comments: inhale 2 puffs twice daily losartan 50 MG tablet 50 mg PO DAILY montelukast 10 MG tablet 10 mg PO DAILY albuterol sulfate [Ventolin HFA] 90 mcg/actuation HFA aerosol inhaler 1 - 2 puff inhalation Q4H PRN PRN (Reason: Wheezing) Qty: 8.5 0RF azelastine 137 mcg (0.1 %) aerosol,spray 2 spray intranasal BID PRN (Reason: antihistamine) Rx Instructions: administer into each nostril albuterol sulfate 2.5 mg /3 mL (0.083 %) solution for nebulization 2.5 mg inhalation 4X/DAY PRN PRN (Reason: shortness of breath or wheezing) levothyroxine 88 mcg tablet 88 mcg PO DAILY Referrals / Follow Up: Olivia Gates DO [Primary Care Provider] - Macario Llanos MD [Med Staff - Active Staff] - Disposition Disposition (needs filled in before D/C Order can be placed): Home, Self Care 08/22/24 1106 <Electronically signed by Macario Llanos MD> Cosigner Signature (if applicable): CC: Dr. Olivia Gates DO; Dr. Macario Llanos MD~ Signed [facility] Work Phone: [phone]) 753-533005-15-2025 Discharge summary [facility] Medical Records Department [address] [place] [address] Discharge Summary 08/22/24 1105 MR#: [id number] Acct: [id number] Name: ARIELLANENA Rep #:[id number] : 1955 69 From: Macario Llanos MD PCP: Dr. Olivia Gates DO Status:ADM IN Location: SC3 [id number] Providers Date of Admission: 08/21/24 Primary Care Physician: Dr. Olivia Gates, Consultations 08/21/24 15:06 Consult: Hospitalist Routine Consulting Provider: Leana Vaca Reason for Consult: Hypoxia post-op RT Shoulder Arthroscopy, Subacrom Decompress, etc... EMERGENT Consult: No MD Notified: Yes Date Notified: 08/21/24 Time Notified: 15:06 Method of Notification: Text Comments:: DR LLANOS TO [facility]CT [facility] Reason For Visit: Right shoulder Arthroscopy, subacromial decompress Diagnosis Discharge Diagnosis (1) Right shoulder pain: Status: Acute Code(s): M25.511 - Pain in right shoulder Medications at Discharge Home Medications paroxetine HCl 40 mg tablet (Paxil) 40 mg PO DAILY depression 01/29/13 trazodone 50 mg tablet 50 mg PO QHS sleep 01/29/13 esomeprazole magnesium 40 mg capsule,delayed release (Nexium) 40 mg PO BID GERD 05/16/14 lorazepam 1 mg tablet 2 mg PO BID anxiety 10/11/16 cholecalciferol (vitamin D3) 1,250 mcg (50,000 unit) capsule 50,000 units PO KEITA Vit D deficiency 05/20/17 hydrocodone-acetaminophen 5-325mg 5mg-325mg ([place]) 1 ea PO TID PRN Pain 06/22/17 budesonide 180 mcg/actuation breath activated powder inhaler (Pulmicort Flexhaler) 2 puff inhalation BID SOB/wheezing 12/13/17 losartan 50 mg tablet 50 mg PO DAILY blood pressure 07/04/20 montelukast 10 mg tablet 10 mg PO DAILY allergies 07/04/20 albuterol sulfate 90 mcg/actuation aerosol inhaler (Ventolin HFA) 1 - 2 puff inhalation Q4H PRN PRNWheezing #8.5 grams 04/13/21 azelastine 137 mcg (0.1 %) nasal spray 2 spray intranasal BID PRN antihistamine 12/22/21 albuterol sulfate 2.5 mg/3 mL (0.083 %) solution for nebulization 2.5 mg inhalation 4X/DAY PRN PRN shortness of breath or wheezing 08/16/24 levothyroxine 88 mcg tablet 88 mcg PO DAILY 08/16/24 oxycodone-acetaminophen 5 mg-325 mg tablet (Percocet) 1 tab PO Q4H PRN pain 4 days #30 tabs 08/21/24 Hospital Course Operations arthroscopy, shoulder Summary of Care Provided Minutes Spent on Discharge: 10 Physical Exam Const oriented x3 and no apparent distress Constitutional Narrative: sats stable on room air Weight / BMI Weight Weight: 238 lb 1.588 oz Body Mass Index (BMI) 0.0 ABG / Lab / Microbiology Data 08/22/24 06:24 08/22/24 06:24 Laboratory: Laboratory Results - last 24 hr 08/22/24 06:24: WBC 16.3 H, RBC 4.26, Hgb 10.6 L, Hct 34.4 L, MCV 80.8 L, MCH 24.9 L, MCHC 30.8 L, RDW Std Deviation 49.1 H, RDW Coeff of Patrick 16.8 H, Plt Count 343, MPV 9.2, Immature Gran % (Auto) 0.500, Neut % (Auto) 77.1 H, Lymph % (Auto) 16.0 L, [place] % (Auto) 6.3, Eos % (Auto) 0.0, Baso % (Auto)0.1, Absolute Neuts (auto) 12.6 H, Absolute Lymphs (auto) 2.61, Nucleated RBC % 0, Sodium 139,Potassium 3.8, Chloride 105, Carbon Dioxide 24.5, Anion Gap 10, BUN 16, Creatinine 0.81, Estim Creat Clear Calc 110.19, Est GFR (MDRD) Non-Af 78, BUN/Creatinine Ratio 20.2 H, Glucose 149 H, Calcium 8.7, Total Bilirubin < 0.15, AST 20, ALT 10, Alkaline Phosphatase 81, Total Protein 6.3, Albumin 3.4, Roseanne bulin 2.8, Albumin/Globulin Ratio 1.2 D/C Instructions Discharge Diet: No restrictions Ice area for (Minutes): 10 Additional Activity Instructions: ok for hand wrist elbow rom, ok to remove sling at rest. Call your doctor if your incision/area has: Continuous Slow Oozing, Sudden Increased Bleeding, Increased Pain/ Swelling, Increased Redness, Foul Smelling Discharge and Swelling at the incision site Call your doctor if you observe: Fever of 101 or Higher, Coldness, Increased Pain and Numbness or Tingling Cleanse incision/area with: Do not get Incision Wet Additional Dressing/Incision Instructions: ok to change dressing as needed, keepincisions covered, leave tapes (steri strips) in place DC O2, CPAP, BIPAP Needs Home O2 Discharge instructions: No Please Follow Up With: Macario Llanos MD When: next week Meaningful Use Info Meaningful Use Meaningful Use Diagnoses (Choose all that apply): None applicable Ischemic Stroke Statin Dosing Therapy Reference: STATIN DOSE THERAPY REFERENCE: * Patients > 75 years receive moderate or high dose statin therapy. * Patients 75 years or YOUNGER should receive HIGH intensity statin dose unless contraindicated. You will be required to document reason for non-treatment if statin daily dose does not meet guidelines. HIGH DOSE STATIN THERAPY DAILY Atorvastatin > than or = to 40 mg Rosuvastatin > than or = to 20 mg Amlodipine + Atorvastatin > than or = to 2.5/40 mg Ezetimibe + Simvastatin 10/80 mg Simvastatin 80mg Discharge Plan Admission Admit Date/Time: 08/21/24 15:46 Primary Reason for Your Visit: post op admit for low sats after shoulder arthroscopy Attending Provider: Macario Llanos Primary Care Provider: Olivia Gates Consulting Providers: Leana Vaca; Chaz Ortiz Instructions Patient Instructions: After Shoulder Arthroscopy Discharge Orders/Prescriptions Prescriptions: New oxycodone-acetaminophen [Percocet] 5-325 mg tablet 1 tab PO Q4H MDD 6 PRN (Reason: pain) 4 Days Qty: 30 0RF No Action paroxetine HCl [Paxil] 40 MG tablet 40 mg PO DAILY trazodone 50 MG tablet 50 mg PO QHS esomeprazole magnesium [Nexium] 40 MG capsule 40 mg PO BID lorazepam 1 MG tablet 2 mg PO BID cholecalciferol (vitamin D3) 50,000 UNIT capsule 50,000 units PO KEITA Patient Comments: takes q monday Rx Instructions: takes on monday hydrocodone-acetaminophen [[place]] 1 EACH tablet 1 ea PO TID PRN (Reason: Pain) Pulmicort Flexhaler 1 PUFF inhaler 2 puff inhalation BID Patient Comments: inhale 2 puffs twice daily losartan 50 MG tablet 50 mg PO DAILY montelukast 10 MG tablet 10 mg PO DAILY albuterol sulfate [Ventolin HFA] 90 mcg/actuation HFA aerosol inhaler 1 - 2 puff inhalation Q4H PRN PRN (Reason: Wheezing) Qty: 8.5 0RF azelastine 137 mcg (0.1 %) aerosol,spray 2 spray intranasal BID PRN (Reason: antihistamine) Rx Instructions: administer into each nostril albuterol sulfate 2.5 mg /3 mL (0.083 %) solution for nebulization 2.5 mg inhalation 4X/DAY PRN PRN (Reason: shortness of breath or wheezing) levothyroxine 88 mcg tablet 88 mcg PO DAILY Referrals / Follow Up: Olivia Gates DO [Primary Care Provider] - Macario Llanos MD [Med Staff - Active Staff] - Disposition Disposition (needs filled in before D/C Order can be placed): Home, Self Care 08/22/24 1106 Cosigner Signature (if applicable): CC: Dr. Olivia Gates DO; Dr. Macario Llanos MD~ Signed [facility]05-15-2025 [facility] Medical Records Department [address] [place] [id number] Discharge Summary 08/22/24 1105 MR#: [id number] Acct: [id number] Name: NENA KRISHNAN Rep #: [id number] : 1955 69 From: Macario Llanos MD PCP: Dr. Olivia Gates DO Status:ADM IN Location: [place] [address] Providers Date of Admission: 08/21/24 Primary Care Physician: Dr. Olivia Gates DO Consultations 08/21/24 15:06 Consult: Hospitalist Routine Consulting Provider: Leana Vaca Reason for Consult: Hypoxia post-op RT Shoulder Arthroscopy, Subacrom Decompress, etc... EMERGENT Consult: No MD Notified: Yes Date Notified: 08/21/24 Time Notified: 15:06 Method of Notification: Text Comments:: DR LLANOS TO CONTACT [facility] Reason For Visit: Right shoulder Arthroscopy, subacromial decompress Diagnosis Discharge Diagnosis (1) Right shoulder pain: Status: Acute Code(s): M25.511 - Pain in right shoulder Medications at Discharge Home Medications paroxetine HCl 40 mg tablet (Paxil) 40 mg PO DAILY depression 01/29/13 trazodone 50 mg tablet 50 mg PO QHS sleep 01/29/13 esomeprazole magnesium 40 mg capsule,delayed release (Nexium) 40 mg PO BID GERD 05/16/14 lorazepam 1 mg tablet 2 mg PO BID anxiety 10/11/16 cholecalciferol (vitamin D3) 1,250 mcg (50,000 unit) capsule 50,000 units PO KEITA Vit D deficiency 05/20/17 hydrocodone-acetaminophen 5-325mg 5mg-325mg ([place]) 1 ea PO TID PRN Pain 06/22/17 budesonide 180 mcg/actuation breath activated powder inhaler (Pulmicort Flexhaler) 2 puff inhalation BID SOB/wheezing 12/13/17 losartan 50 mg tablet 50 mg PO DAILY blood pressure 07/04/20 montelukast 10 mg tablet 10 mg PO DAILY allergies 07/04/20 albuterol sulfate 90 mcg/actuation aerosol inhaler (Ventolin HFA) 1 - 2 puff inhalation Q4H PRN PRN Wheezing #8.5 grams 04/13/21 azelastine 137 mcg (0.1 %) nasal spray 2 spray intranasal BID PRN antihistamine 12/22/21 albuterol sulfate 2.5 mg/3 mL (0.083 %) solution for nebulization 2.5 mg inhalation 4X/DAY PRN PRN shortness of breath or wheezing 08/16/24 levothyroxine 88 mcg tablet 88 mcg PO DAILY 08/16/24 oxycodone-acetaminophen 5 mg-325 mg tablet (Percocet) 1 tab PO Q4H PRN pain 4 days #30 tabs 08/21/24 Hospital Course Operations arthroscopy, shoulder Summary of Care Provided Minutes Spent on Discharge: 10 Physical Exam Const oriented x3 and no apparent distress Constitutional Narrative: sats stable on room air Weight / BMI Weight Weight: 238 lb 1.588 oz Body Mass Index (BMI) 0.0 ABG / Lab / Microbiology Data 08/22/24 06:24 08/22/24 06:24 Laboratory: Laboratory Results - last 24 hr 08/22/24 06:24: WBC 16.3 H, RBC 4.26, Hgb 10.6 L, Hct 34.4 L, MCV 80.8 L, MCH 24.9 L, MCHC 30.8 L, R DW Std Deviation 49.1 H, RDW Coeff of Patrick 16.8 H, Plt Count 343, MPV 9.2, Immature Gran % (Auto) 0.500, Neut % (Auto) 77.1 H, Lymph % (Auto) 16.0 L, [place] % (Auto) 6.3, Eos % (Auto) 0.0, Baso % (Auto) 0.1, Absolute Neuts (auto) 12.6 H, Absolute Lymphs (auto) 2.61, Nucleated RBC % 0, Sodium 139, Potassium 3.8, Chloride 105, Carbon Dioxide 24.5, Anion Gap 10, BUN 16, Creatinine 0.81, Estim Creat Clear Calc 110.19, Est GFR (MDRD) Non-Af 78, BUN/Creatinine Ratio 20.2 H, Glucose 149 H, Calcium 8.7, Total Bilirubin < 0.15, AST 20, ALT 10, Alkaline Phosphatase 81, Total Protein 6.3, Albumin 3.4, Globulin 2.8, Albumin/Globulin Ratio 1.2 D/C Instructions Discharge Diet: No restrictions Ice area for (Minutes): 10 Additional Activity Instructions: ok for hand wrist elbow rom, ok to remove sling at rest. Call your doctor if your incision/area has: Continuous Slow Oozing, Sudden Increased Bleeding, Increased Pain/ Swelling, Increased Redness, Foul Smelling Discharge and Swelling at the incision site Call your doctor if you observe: Fever of 101 or Higher, Coldness, Increased Pain and Numbness or Tingling Cleanse incision/area with: Do not get Incision Wet Additional Dressing/Incision Instructions: ok to change dressing as needed, keep incisions covered, leave tapes (steri strips) in place DC O2, CPAP, BIPAP Needs Home O2 Discharge instructions: No Please Follow Up With: Macario Llanos MD When: next week Meaningful Use Info Meaningful Use Meaningful Use Diagnoses (Choose all that apply): None applicable Ischemic Stroke Statin Dosing Therapy Reference: STATIN DOSE THERAPY REFERENCE: * Patients > 75 years receive moderate or high dose statin therapy. * Patients 75 years or YOUNGER should receive HIGH intensity statin dose unless contraindicated. You will be required to document reason for non-treatment if statin daily dose does not meet guidelines. HIGH DOSE STATIN THERAPY DAILY Atorvastatin > than or = to 40 mg Rosuvastatin > than or = to 20 mg Amlodipine + Atorvastatin > than or = to 2.5/40 mg Ezeti (more content not included)...[facility]05-14-2025 Progress note Author Leana Vaca [facility] Note Date/Time August 21, 2024 4:48p m [facility] Medical Records Department [address] [place] [address] Progress Note - Hospitalist 08/21/24 1610 MR#: [id number] Acct: [id number] Name: NENA KRISHNAN Rep #:[id number] : 1955 69 From: Leana Vaca MD PCP: Dr. 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 Llanos secondary to persistent unrelenting right upper extremity pain along the lateralaspect of the arm radiating downward worse with any attempted lifting or reaching upward without patient conservative interventions including multiple injections, physical therapy and home-based exercises without improvement for planned right shoulder arthroscopy, subacromial decompression, debridement, distal clavicle excision with rotator cuff repair. Postoperatively patient in PACU with continued unresolved mild hypoxia requiring 2 L nasal cannula supplementation not on chronic oxygen therapy at home. Initially patient had denied any pulmonary history however following further evaluation it was noted that she had underlying pulmonary hypertension as well as asthma with chronic dyspnea complaints and allergic rhinitis. Also discussed that patient does havemorbid obesity and certainly could be at risk for RAJNI. She upon evaluation was having a dry cough but notes this is only since her transition to the floor and she was not having any pulmonary issues prior to operative intervention. She denies any current dyspnea. Upon reevaluation during evaluation she was noted to be 93% on room air. She does have underlying sleep apnea that she does not use PAP therapy before and was diagnosed remotely. Patient currently notes somediscomfort to the right shoulder especially as she has been more active, was up and using the restroom prior evaluation. Patient denies fevers, chills, nausea,emesis, abdominal pain, chest pain. Objective Data Objective Data Vital Signs: Vital Signs Temp Pulse Resp BP Pulse Ox O2 Del Method O2 Flow Rate 98.1 F 93 20 H 170/75 H 96 Nasal Cannula 2 08/21/24 15:48 08/21/24 15:48 08/21/24 15:48 08/21/24 15:48 08/21/24 15:48 08/21/24 15:48 08/21/24 15:48 Oxygen Flow Rate (L/min) 2 Oxygen Delivery Method Nasal Cannula Weight: 238 lb 1.588 oz Body Mass Index (BMI) 42.1 Lab / Micro Data 08/20/24 14:12 08/20/24 14:12 Labs: Laboratory Results - last 24 hr 08/20/24 14:12: WBC 12.4 H, RBC 4.76, Hgb 11.7 L, Hct 38.3, MCV 80.5 L, MCH 24.6L, MCHC 30.5 L, RDW Std Deviation 48.8 H, RDW Coeff of Patrick 16.8 H, Plt Count 390, MPV 10.0, Sodium 139, Potassium 4.0, Chloride 103, Carbon Dioxide 23.9, Anion Gap 12, BUN 13, Creatinine 0.86, Est GFR (MDRD) Non-Af 73, BUN/Creatinine Ratio 14.8, Glucose 86, Calcium 8.9, TSH 2.620 Physical Exam Narrative Physical Examination: General: Awake, alert, oriented x 3 and cooperative, initially using the restroom but transition to the bedside chair, notes discomfort to the right shoulder but otherwise denies any acute complaint. During evaluation she does have an occasional dry cough but she notes this is just recently since transitioning to the floor and she had no pulmonary issues or URI type symptoms previous to her surgery. Skin: Normal color, normal turgor, no icterus, no cyanosis except for recent operative intervention right shoulder with dressing in place with no drainage. HEENT: AT/NC, EOMI, PERRLA, MMM, no discern carotid bruits, difficult to discernJVD given thickened neck. Lungs: Mildly diminished at the bases but decent air movement otherwise, mildly increased respiratory rate but no distress, occasional dry coughing during evaluation, no rales, ronchi or wheezing. Heart: Regular rate and rhythm; no gallop, rub audible. Abdomen: Soft, morbidly obese, NTTP, distant BS, no obvious distention or HSM however habitus makes evaluation difficult. Extremities: No cyanosis, no clubbing, no marked distal edema noted, status postrecent right shoulder surgery with dressing in place with no drainage, sling in place also. Neurological: Patient awake, alert, oriented as noted, cognitive function intact; pupils equally reactive to light and accommodation, cranial nerves grossnormal, moving all extremities except limited right upper extremity as expected given recent operative intervention on the shoulder, strength moderately globally decreased. Psychiatric: Affect appears mildly fatigued otherwise normal, no acute evidence of depressive or anxiety feelings but does have underlying history. 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 Llanos secondary to persistent unrelenting right upper extremity pain along the lateralaspect of the arm radiating downward worse with any attempted lifting or reaching upward without patient conservative interventions including multiple injections, physical therapy and home-based exercises without improvement for planned right shoulder arthroscopy, subacromial decompression, debridement, distal clavicle excision with rotator cuff repair. #1. Unrelenting severe right upper extremity pain, right shoulder impingement syndrome, rotator cuff tear, AC joint arthrosis, osteoarthritis: Failed conservative therapies and treatments, admitted per Dr. Llanos, 08/21/24 right shoulder arthroscopy, subacromial decompression, debridement, distal clavicle excision, rotator cuff repair, post-operative pain management, bowel regimen, DVT Prophylaxis, PT/OT/CM per Orthopedic surgery discretion. #2. Postoperative mild hypoxia, unresolving in PACU with underlying chronic asthma with allergic rhinitis complicated by underlying pulmonary hypertension and morbid obesity as well as possible underlying RAJNI: Will maintain on oxygen with wean as tolerated to room air, encourage aggressive I-S, hold home inhalersin the interim placed on ATC budesonide therapy, PRN albuterol, HOB, IS parameters. Continue home montelukast regimen. If patient is not able to readily wean to room air in a timely fashion then at that time low threshold to obtain chest x-ray to be cautious. #3. 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 Will need to follow-up with her primary care physician for PAP therapy assessment and outpatient sleep study formally. #4. Hypertension: Continue home regimen including losartan, PRN hydralazine. #5. Anxiety and depression: Will continue patient home paroxetine and lorazepamregimen in addition to low-dose nightly trazodone with hold parameters for sedation. #6. Hypothyroidism: Will continue patient home levothyroxine regimen. #7. Morbid Obesity: Weight loss and lifestyle changes encouraged. #8. GERD: Will continue patient on PPI. #9. DVT prophylaxis: SCDs, chemoprophylaxis per surgeon discretion given recentOR. Charges/Coding Visit Charges Inpatient E&M: 19116 Subs Hosp L3 08/21/24 1648 <Electronically signed by Leana Vaca MD> Cosigner Signature (if applicable): CC: ~ Signed [facility] Work Phone: 1(376) 573-708305-14-2025 Evaluation note* Diagnosis Onset Date Resolution Status Admit Date Arthrosis of right acromioclavicular joint acute August 3:46pm Primary osteoarthritis, righ t shoulder acute August 21, 2024 3 :46pm Right rotator cuff tear acute 2024 3:46pm Right shoulder pain acute August 082024 3:46pm Arthrosis of right acromioclavicular joint acute August 10:08am Primary osteoarthritis, righ t shoulder acute September 03, 2024 1 0:08am Right rotator cuff tear acute 2024 10:08am Right shoulder pain acute August 092024 10:08am Arthrosis of right acromioclavicular joint acute September 11:03am Primary osteoarthritis, righ t shoulder acute October 01, 2024 11:03am Right rotator cuff tear acute J une 2024 11:03am Right shoulder pain acute October 01, 2024 11:03am Arthrosis of right acromioclavicular joint acute October 11:15am Primary osteoarthritis, righ t shoulder acute October 28, 2024 11:15am Right rotator cuff tear acute J olivia 2024 11:15am Right shoulder pain acute October 28, 2024 11:15am Arthrosis of right acromioclavicular joint acute November 082024 10:45am Primary osteoarthritis, righ t shoulder acute November 19 10:45am Right rotator cuff tear acute A ugust 2024 10:45am [facility] [email or web address] Work Phone: 1(984) 621-503005-14-2025 Progress note [facility] Medical Records Department [address] [place] [address] Progress Note - Hospitalist 08/21/24 1610 MR#: [id number] Acct: [id number] Name: NENA KRISHNAN Rep #:[id number] : 1955 69 From: Leana Vaca MD PCP: Dr. 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 Llanos secondary to persistent unrelenting right upper extremity pain along the lateralaspect of the arm radiating downward worse with any attempted lifting or reaching upward without patient conservative interventions including multiple injections, physical therapy and home-based exercises without improvement for planned right shoulder arthroscopy, subacromial decompression, debridement, distal clavicle excision with rotator cuff repair. Postoperatively patient in PACU withcontinued unresolved mild hypoxia requiring 2 L nasal cannula supplementation not on chronic oxygentherapy at home. Initially patient had denied any pulmonary history however following further evaluation it was noted that she had underlying pulmonary hypertension as well as asthma with chronic dyspnea complaints and allergic rhinitis. Also discussed that patient does havemorbid obesity and certainly could be at risk for RAJNI. She upon evaluation was having a dry cough but notes this is only since her transition to the floor and she was not having any pulmonary issues prior to operative intervention. She denies any current dyspnea. Upon reevaluation during evaluation she was noted to be 93% on room air. She does have underlying sleep apnea that she does not use PAP therapy before and was diagnosed remotely. Patient currently notes somediscomfort to the right shoulder especially as she has been more active, was up and using the restroom prior evaluation. Patient denies fevers, chills, na usea,emesis, abdominal pain, chest pain. Objective Data Objective Data Vital Signs: Vital Signs Temp Pulse Resp BP Pulse Ox O2 Del Method O2 Flow Rate 98.1 F 93 20 H 170/75 H 96 Nasal Cannula 2 08/21/24 15:48 08/21/24 15:48 08/21/24 15:48 08/21/24 15:48 08/21/24 15:48 08/21/24 15:48 08/21/24 15:48 Oxygen Flow Rate (L/min) 2 Oxygen Delivery Method Nasal Cannula Weight: 238 lb 1.588 oz Body Mass Index (BMI) 42.1 Lab / Micro Data 08/20/24 14:12 08/20/24 14:12 Labs: Laboratory Results - last 24 hr 08/20/24 14:12: WBC 12.4 H, RBC 4.76, Hgb 11.7 L, Hct 38.3, MCV 80.5 L, MCH 24.6L, MCHC 30.5 L, RDWStd Deviation 48.8 H, RDW Coeff of Patrick 16.8 H, Plt Count 390, MPV 10.0, Sodium 139, Potassium 4.0, Chloride 103, Carbon Dioxide 23.9, Anion Gap 12, BUN 13, Creatinine 0.86, Est GFR (MDRD) Non-Af 73, BUN/Creatinine Ratio 14.8, Glucose 86, Calcium 8.9, TSH 2.620 Physical Exam Narrative Physical Examination: General: Awake, alert, oriented x 3 and cooperative, initially using the restroom but transition tothe bedside chair, notes discomfort to the right shoulder but otherwise denies any acute complaint.During evaluation she does have an occasional dry cough but she notes this is just recently since tr ansitioning to the floor and she had no pulmonary issues or URI type symptoms previous to her surgery. Skin: Normal color, normal turgor, no icterus, no cyanosis except for recent operative interventionright shoulder with dressing in place with no drainage. HEENT: AT/NC, EOMI, PERRLA, MMM, no discern carotid bruits, difficult to discernJVD given thickenedneck. Lungs: Mildly diminished at the bases but decent air movement otherwise, mildly increased respiratory rate but no distress, occasional dry coughing during evaluation, no rales, ronchi or wheezing. Heart: Regular rate and rhythm; no gallop, rub audible. Abdomen: Soft, morbidly obese, NTTP, distant BS, no obvious distention or HSM however habitus makesevaluation difficult. Extremities: No cyanosis, no clubbing, no marked distal edema noted, status postrecent right shoulder surgery with dressing in place with no drainage, sling in place also. Neurological: Patient awake, alert, oriented as noted, cognitive function intact; pupils equally reactive to light and accommodation, cranial nerves grossnormal, moving all extremities except limitedright upper extremity as expected given recent operative intervention on the shoulder, strength mode rately globally decreased. Psychiatric: Affect appears mildly fatigued otherwise normal, no acute evidence of depressive or anxiety feelings but does have underlying history. 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 Llanos secondary to persistent unrelenting right upper extremity pain along the lateralaspect of the arm radiating downward worse with any attempted lifting or reaching upward without patient conservative interventions including multiple injections, physical therapy and home-based exercises without improvement for planned right shoulder arthroscopy, subacromial decompression, debridement, distal clavicle excision with rotator cuff repair. #1. Unrelenting severe right upper extremity pain, right shoulder impingement syndrome, rotator cuff tear, AC joint arthrosis, osteoarthritis: Failed conservative therapies and treatments, admitted per Dr. Llanos, 08/21/24 right shoulder arthroscopy, subacromial decompression, debridement, distal clavicle excision, rotator cuff repair, post-operative pain management, bowel regimen, DVT Prophylaxis, PT/OT/CM per Orthopedic surgery discretion. #2. Postoperative mild hypoxia, unresolving in PACU with underlying chronic asthma with allergic rhinitis complicated by underlying pulmonary hypertension and morbid obesity as well as possible underlying RAJNI: Will maintain on oxygen with wean as tolerated to room air, encourage aggressive I-S, hold home inhalersin the interim placed on ATC budesonide therapy, PRN albuterol, HOB, IS parameters. Continue home montelukast regimen. If patient is not able to readily wean to room air in a timely fashion then at that time low threshold to obtain chest x-ray to be cautious. #3. 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 Will need to follow-up with her primary care physician for PAP therapy assessment and outpatient sleep study formally. #4. Hypertension: Continue home regimen including losartan, PRN hydralazine. #5. Anxiety and depression: Will continue patient home paroxetine and lorazepamregimen in addition to low-dose nightly trazodone with hold parameters for sedation. #6. Hypothyroidism: Will continue patient home levothyroxine regimen. #7. Morbid Obesity: Weight loss and lifestyle changes encouraged. #8. GERD: Will continue patient on PPI. #9. DVT prophylaxis: SCDs, chemoprophylaxis per surgeon discretion given recentOR. Charges/Coding Visit Charges Inpatient E&M: 64971 Subs Hosp L3 08/21/24 1648 Cosigner Signature (if applicable): CC: ~ Signed [facility]05-14-2025 Consult note Author Troy Wilkins [facility] Note Date/Time August 21, 2024 11:43 am [facility] Medical Records Department [address] [place] [address] Anesthesia Postop Eval II 08/21/24 1143 MR#: [id number] Acct: [id number] Name: NENA KRISHNAN Rep #:[id number] : 1955 69 From: Troy Wilkins MD PCP: Dr. Olivia Gates, DO Status:REG SDC Y Race: C Location: [facility]02- Anesthesia Postop Eval I Sum Postop Eval Completion status Anesthesia document: Postop Eval 1 completed: Yes Anesthesia Postop Eval I Summary Anesthesia Postop Eval I Summary: Anesthesia Postop Eval I: Assessment Summary Airway patent Yes 08/21/24 11:00 INSTRUCTIONAL TECHNOLOGY COORDINATOR.HBARR Spontaneous unlabored Yes 08/21/24 11:00 INSTRUCTIONAL TECHNOLOGY COORDINATOR.HBARR respirations Mental status Awake 08/21/24 11:00 INSTRUCTIONAL TECHNOLOGY COORDINATOR.HBARR nausea No 08/21/24 11:00 INSTRUCTIONAL TECHNOLOGY COORDINATOR.HBARR Vomiting No 08/21/24 11:00 INSTRUCTIONAL TECHNOLOGY COORDINATOR.HBARR Anesthesia Postop Eval I: Fluid Summary Crystalloid volume administer 8,000 08/21/24 11:00 INSTRUCTIONAL TECHNOLOGY COORDINATOR.HBARR (ml) Colloids volume administered ( ml) Blood Product volume administered (ml) Total IV fluid infused 8,000 08/21/24 11:00 INSTRUCTIONAL TECHNOLOGY COORDINATOR.HBARR Anesthesia Postop Eval I: Summary Notes Anesthesia Complication No 08/21/24 11:00 INSTRUCTIONAL TECHNOLOGY COORDINATOR.HBARR Anesthesia Complication Comment: Post-operative progress note Anesthesia: Postop Eval II Evaluation Mental status: Awake Pain Level: 0 nausea: No Vomiting: No 08/21/24 1143 <Electronically signed by Troy Wilkins MD > Date _ [facility] Signature: Date CC: ~ Signed [facility] Work Phone: [phone] 929-421205-14-2025 Consult note Author Priscila Morales [facility] Note Date/Time August 21, 2024 11:00 am [facility] Medical Records Department [address] [place] [address] Anesthesia Postop Eval I 08/21/24 1100 MR#: [id number] Acct: [id number] Name: NENA KRISHNAN Rep #:[id number] : 1955 69 From: Priscila Morales CRNA PCP: Dr. Olivia Gates, DO Status:REG [facility] Y Race: C Location: [place] [address] Anesthesia: Postop Eval I Current Vital Signs Temperature: 97.3 F Pulse Rate: 72 Blood Pressure: 112/96 Respiratory Rate: 14 Pulse Ox: 93 Oxygen Delivery Method: Simple Mask Assessment Airway patent: Yes Spontaneous unlabored respirations: Yes Mental status: Awake nausea: No Vomiting: No Anesthesia Complication: No Fluid Hydration Crystalloid volume administer (ml): 8,000 Total IV fluid infused: 8,000 Progress Note Anesthesia document: Postop Eval 1 completed: Yes 08/21/24 1100 <Electronically signed by Priscila BERNABE NA> Date _ Priscila Morales INSTRUCTIONAL TECHNOLOGY COORDINATOR Cosigner Signature: Date CC: ~ Signed [facility] Work Phone: [phone] 832-838905-14-2025 Discharge summary Author Macario Llanos [facility] Note Date/Time August 21, 2024 10:40 am [facility] Medical Records Department [address] [place] [id number] Instructions for Home/Discharge Instructions 08/21/24 1038 MR#: [id number] Acct: [id number] Name: NENA KRISHNAN Rep #:[id number] : 1955 69 From: Macario Llanos MD PCP: Dr. Olivia Gates, DO Status:REG [facility] Discharge Instructions Diet Discharge Diet: No restrictions Activity Ice area for (Minutes): 10 Lifting Restrictions: no lifting, pendulums 4x/day Additional Activity Instructions:: ok for hand wrist elbow rom, ok to remove sling at rest. Dressing / Incision Call your doctor if your incision/area has: Continuous Slow Oozing, Sudden Increased Bleeding, Increased Pain/ Swelling, Increased Redness, Foul Smelling Discharge and Swelling at the incision site Call your doctor if you observe: Fever of 101 or Higher, Coldness, Increased Pain and Numbness or Tingling Change Dressing in: 2 days Cleanse incision/area with: Do not get Incision Wet Additional Dressing/Incision Instructions:: ok to change dressing as needed, keep incisions covered, leave tapes (steri strips) in place Follow Up Care Please Follow Up With: Macario Llanos MD When: next week Test Results: Test results from this visit will be discussed in further detail at your follow- up appointment, if applicable. Discharge Plan Admission Attending Provider: Macario Llanos Primary Care Provider: Olivia Gates Instructions Patient Instructions: After Shoulder Arthroscopy Print Language: New Zealander Discharge Orders/Prescriptions Prescriptions: New oxycodone-acetaminophen [Percocet] 5-325 mg tablet 1 tab PO Q4H MDD 6 PRN (Reason: pain) 4 Days Qty: 30 0RF No Action paroxetine HCl [Paxil] 40 MG tablet 40 mg PO DAILY trazodone 50 MG tablet 50 mg PO QHS esomeprazole magnesium [Nexium] 40 MG capsule 40 mg PO BID lorazepam 1 MG tablet 2 mg PO BID cholecalciferol (vitamin D3) 50,000 UNIT capsule 50,000 units PO KEITA Patient Comments: takes q monday Rx Instructions: takes on monday hydrocodone-acetaminophen [[place]] 1 EACH tablet 1 ea PO TID PRN (Reason: Pain) Pulmicort Flexhaler 1 PUFF inhaler 2 puff inhalation BID Patient Comments: inhale 2 puffs twice daily losartan 50 MG tablet 50 mg PO DAILY montelukast 10 MG tablet 10 mg PO DAILY albuterol sulfate [Ventolin HFA] 90 mcg/actuation HFA aerosol inhaler 1 - 2 puff inhalation Q4H PRN PRN (Reason: Wheezing) Qty: 8.5 0RF azelastine 137 mcg (0.1 %) aerosol,spray 2 spray intranasal BID PRN (Reason: antihistamine) Rx Instructions: administer into each nostril albuterol sulfate 2.5 mg /3 mL (0.083 %) solution for nebulization 2.5 mg inhalation 4X/DAY PRN PRN (Reason: shortness of breath or wheezing) levothyroxine 88 mcg tablet 88 mcg PO DAILY Referrals / Follow Up: Olivia Gates DO [Primary Care Provider] - Macario Llanos MD [Med Staff - Active Staff] - Disposition Disposition (needs filled in before D/C Order can be placed): Home, Self Care 08/21/24 1040<Electronically signed by Macario Llanos MD>Macario Llanos MD CC: Dr. Olivia Gates DO ~ Signed [facility] Work Phone: [phone]) 315-387805-14-2025 Consult note [facility] Medical Records Department [address] [place] [address] Anesthesia Postop Eval II 08/21/24 1143 MR#: [id number] Acct: [id number] Name: NENA KRISHNAN Rep #:[id number] : 1955 69 From: Troy Wilkins MD PCP: Dr. Olivia Gates DO Status:REG [facility] Y Race: C Location: [place] [address]1 Anesthesia Postop Eval I Sum Postop Eval Completion status Anesthesia document: Postop Eval 1 completed: Yes Anesthesia Postop Eval I Summary Anesthesia Postop Eval I Summary: Anesthesia Postop Eval I: Assessment Summary Airway patent Yes 08/21/24 11:00 INSTRUCTIONAL TECHNOLOGY COORDINATOR.HBARR Spontaneous unlabored Yes 08/21/24 11:00 INSTRUCTIONAL TECHNOLOGY COORDINATOR.HBARR respirations Mental status Awake 08/21/24 11:00 INSTRUCTIONAL TECHNOLOGY COORDINATOR.HBARR nausea No 08/21/24 11:00 INSTRUCTIONAL TECHNOLOGY COORDINATOR.HBARR Vomiting No 08/21/24 11:00 INSTRUCTIONAL TECHNOLOGY COORDINATOR.HBARR Anesthesia Postop Eval I: Fluid Summary Crystalloid volume administer 8,000 08/21/24 11:00 INSTRUCTIONAL TECHNOLOGY COORDINATOR.HBARR (ml) Colloids volume administered ( ml) Blood Product volume administered (ml) Total IV fluid infused 8,000 08/21/24 11:00 INSTRUCTIONAL TECHNOLOGY COORDINATOR.HBARR Anesthesia Postop Eval I: Summary Notes Anesthesia Complication No 08/21/24 11:00 INSTRUCTIONAL TECHNOLOGY COORDINATOR.HBARR Anesthesia Complication Comment: Post-operative progress note Anesthesia: Postop Eval II Evaluation Mental status: Awake Pain Level: 0 nausea: No Vomiting: No 08/21/24 1143 > Date _ Troy Holbrook Signature: Date CC: ~ Signed [facility]05-14-2025 History and physical note Author Macario Llanos [facility] Note Date/Time August 21, 2024 9:03a m [facility] Medical Records Department [address] [place] [address] History & Physical Exam 08/21/24 0854 MR#: [id number] Acct: [id number] Name: NENA KRISHNAN Rep #:[id number] : 1955 69 From: Macario Llanos MD PCP: Dr. Olivia Gates, DO Status:[facility] Location: [place] [address] HPI - General HPI Narrative NENA KRISHNAN, is a 69 F who presents for right shoulder arthroscopy, subacromial decompression, distal clavicle excision, rotator cuff repair. No changes to history and physical exam. Risks alternatives benefits discussed as well as postoperative instructions and narcotic counseling. Right shoulder marked. Patient understands wishes to proceed no further questions or concerns. MR#: [id number] Acct: [id number] Name: NENA KRISHNAN Rep #: [id number] : 1955 Provider: Dr. Macario Llanos MD Age/Sex: 69/F Location: [facility] Status: Signed Intake Vital Signs 05/30/2512:25 07/05/2508:44 Height 5 ft 3 in 5 ft 3 in Weight: 240 lb 240 lb BMI 42.5 42.5 Intake Visit Reasons: RIGHT SHOULDER Chief Complaint: Right shoulder MRI review Accompanied by: Self Is patient in pain?: Yes Pain scale (1-10): 1 Allergies No Known Allergies Allergy (Verified 07/05/24 09:47) Medications ?Medication ?Instructions ?Recorded ?Confirmed ?Type paroxetine HCl 40 mg tablet (Paxil) 40 mg PO DAILY depression 01/29/1307/05 History trazodone 50 mg tablet 100 mg PO QHS sleep 01/29/13 07/05/24 Hi [place] esomeprazole magnesium 40 mg 40 mg PO BID GERD 05/16/14 07/05/24 Hist ory capsule,delayed release (Nexium) lorazepam 1 mg tablet 2 mg PO BID anxiety 10/11/16 07/05/24 Hi story cholecalciferol (vitamin D3) 1,250 50,000 units PO KEITA Vit D deficiency 05/1107/05/24 History mcg (50,000 unit) capsule hydrocodone-acetaminophen 5-325mg 1 ea PO TID PRN Pain 06/22/17 07/05/24 H istory 5mg-325mg ([place]) budesonide 180 mcg/actuation 2 puff inhalation BID SOB/wheezing 12/1307/05/24 History breath activated powder inhaler (Pulmicort Flexhaler) levothyroxine 50 mcg tablet 50 mcg PO DAILY thyroid 12/13/17 5 History losartan 50 mg tablet 50 mg PO DAILY blood pressure 07/04/20 0 07/05/24 History montelukast 10 mg tablet 10 mg PO DAILY allergies 07/04/20 History albuterol sulfate 90 mcg/actuation 1 - 2 puff inhalation Q4H PRN PRN 07/05/24 Rx aerosol inhaler (Ventolin HFA) Wheezing #8.5 grams azelastine 137 mcg (0.1 %) nasal 2 spray intranasal BID 12/22/21 07/05/24 History spray antihistamine Have you fallen in the past year?: No PFSH Medical History 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, right shoulder Right rotator cuff tear Right shoulder pain Right rib fracture Rheumatoid arthritis Pulmonary hypertension Bronchitis Asthma RAJNI (obstructive sleep apnea) GERD (gastroesophageal reflux disease) Depression Anxiety Hypothyroidism HTN (hypertension) Chronic back pain Surgical History History of cholecystectomy History of hysterectomy History of back surgery History of hernia repair Family History Father CancerMother CancerSister CancerBrother Cancer Social History household members: children Smoking Status: Never smoker second hand exposure: No alcohol intake: never substance use type: does not use HPI RIGHT SHOULDER Details: This documentation accurately reflects the service provided and the decisions made by me, Dr. Macario Llanos MD 07/05/24 0850. Part of today?s visit was documented by [ ], acting as scribe. NENA KRISHNAN is a 69 year old F here today for Follow-up right shoulder MRI. Patient still having pain lateral aspect of the arm radiating down the arm worsewith lifting tries to use left hand more. Worse with reaching up into the cupboards. Patient has tried multiple injections and rounds of physical therapyas well as home-based exercises. Supplemental Info [facility] Imaging Services [address] [place], [place] [address] Upper Ext Joint Only(Routine) MR#: [id number] Acct: [id number] Name: NENA KRISHNAN Rep #: [id number] : 1955 F 69 From: Manpreet Schwarz DO PCP: Dr. Olivia Gates DO Status: REG CLI Study: Upper Ext Joint Only(Routine) Date of Exam: 06/26/24 Exam# [id number] Ordering Dr: Macario Llanos MD PROCEDURE: MRI right shoulder without IV contrast REASON FOR EXAM: Pain TECHNIQUE: Multisequence multiplanar MR images of the right shoulder were obtained without the administration of intravenous contrast. COMPARISON: None. FINDINGS Mild/moderate supraspinatus tendinopathy with 2 small split tears at the anterior and mid insertional fibers. Infraspinatus and subscapularis tendons are intact. No significant rotator cuff muscle atrophy or edema. Long head biceps tendon is intact. Minimal posterior humeral head subluxation. Probable degenerative fraying of the posterosuperior and posterior labrum which is diffusely diminutive. No paralabral cysts. Nslk-[id number]-lzxczmat diffuse thinning of the glenoid cartilage. High-grade chondral thinning along the superomedial humeral head over a 15 mm diameter. No sizable glenohumeral joint effusion. Mild pericapsular edema along the inferior glenohumeral ligament. Acromioclavicular joint alignment is intact. No significant joint effusion. Mild acromioclavicular joint osteoarthritis including small marginal osteophytes and mild capsular hypertrophy. Negative for fracture or marrow replacement. Enthesopathic cysts along the anterior aspect of the greater and lesser humeral tuberosities. No significant fluid in the subacromial/subdeltoid bursa. MRI/Upper Ext Joint Only(Routine) IMPRESSION: 1. Supraspinatus tendinopathy with superimposed split tears at the anterior and mid insertion. 2. Mild glenohumeral and acromioclavicular joint osteoarthritis as detailed above. 3. Mild pericapsular edema along the inferior glenohumeral ligament which may relate to capsular sprain or adhesive capsulitis. Please correlate clinically. Reading Location: [facility] Cheung independently reviewed the imaging. Concur with radiologist report. Coding Level of Care Code Off vis,est,level 3 Diagnoses Right shoulder pain M25.511 Right rotator cuff tear M75.101 Primary osteoarthritis, right shoulder M19.011 Arthrosis of right acromioclavicular joint M19.011 Assessment and Plan Assessment and Plan (1) Right shoulder pain: Status: Acute Plan: NENA KRISHNAN is a 69 year old F here today for Follow-up right shoulder MRI, showing Supraspinatus tendinopathy with superimposed split tears at the anteriorand mid insertion, mild glenohumeral and acromioclavicular joint OA, and mild pericapsular edema along the inferior glenohumeral ligament which may relate to capsular sprain or adhesive capsulitis. Patient counseled on the pros and cons risks and benefits of continued nonoperative management versus surgery. In this case surgery be in the form of a right shoulder arthroscopy, subacromial decompression, distal clavicle excision, rotator cuff repair. Patient wished to go ahead with that they understood no further questions or concerns. Patient is a non-smoker no diabetes and no blood thinners. Pros and cons risks and benefits were discussed with the patient including but not limited to infection, pain, stiffness, bleeding, damage to surrounding structures, neurovascular injury, recurrence or retear, failure or wear of hardware or fixation, instability, fracture, deep vein thrombosis and pulmonary embolism, anesthetic risks, , patient dissatisfaction, need for further surgery and other risks. Patient understood and wished to proceed with surgery,and signed the informed consent documentation. Patient counselled on non-operative and operative means of treating shoulder pain. Conservative options include but not limited to: 1. Rest and Activity Modification: Giving your shoulder time to heal by avoiding movements that cause pain can help. This may involve limiting overhead activities or heavy lifting. 2. Physical Therapy: A physical therapist can guide you through exercises that strengthen the muscles around the shoulder, improve flexibility, and reduce strain on the rotator cuff tendon. 3. Ice and Heat Therapy: Applying ice to the shoulder can help reduce swelling and pain, especially after activity. Heat can be helpful to relax tense muscles and improve blood flow before exercises. 4. Anti-Inflammatory Medications: Ggsc-evy-[id number] medications like ibuprofen or naproxen can help reduce pain and inflammation in the tendon. 5. Corticosteroid Injections: If the pain is more severe, a steroid injection can reduce inflammation in the shoulder and provide relief for a longer period. 6. Platelet-Rich Plasma (PRP) Injection: This treatment involves using your own blood to promote healing in the tendon. The plasma is rich in growth factors that can encourage tissue repair. 7. TENS (Transcutaneous Electrical Nerve Stimulation): This therapy uses a small electrical current to help manage pain and promote healing by stimulating nerves. (2) Right rotator cuff tear: Status: Acute (3) Primary osteoarthritis, right shoulder: Status: Acute (4) Arthrosis of right acromioclavicular joint: Status: Acute Clinical Quality Measures Falls Risk Screening/Assistive Devices Have you fallen in the past year?: No Ortho Exam General General: Yes no acute distress Neurologic: Yes alert and Yes oriented x3 Psychologic: Yes reasonable and appropriate Right Shoulder Skin/Wound: Yes CDI, No ecchymosis, No erythema and No swelling Testing: Positive Hawkin's, Neer's, Speed's, TTP Biceps, TTP AC Joint, empty can and cross arm; Negative Drop Arm or scapular winging SHOULDER: normal motor and sens to ax nerve, and MRU and AIN/PIN Active forward elevation to 90 degrees passively to 155 degrees and then limited by pain after that. External rotation 40 degrees again limited by pain. Strength in forward elevation 4 out of 5. ER 4/5. PFSH Medical History Wears glasses Wears dentures Post-menopausal Alcohol use Ambulates with cane Arthritis Bladder disease Back pain History of hiatal hernia Non-smoker Persistent dry cough Leg cramps History of pain when walking History of stress test History of echocardiogram Hx of fracture of wrist 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, right shoulder Right rotator cuff tear Right shoulder pain Right rib fracture Pulmonary hypertension Bronchitis GERD (gastroesophageal reflux disease) Depression Anxiety Hypothyroidism HTN (hypertension) Chronic back pain Home Medications ?Medication ?Instructions ?Recorded ?Last Taken ?Type paroxetine HCl 40 mg tablet (Paxil) 40 mg PO DAILY dep ression 01/29/13 08/21/24 06:30 History trazodone 50 mg tablet 50 mg PO QHS sleep 01/29/13 12/21/21 History esomeprazole magnesium 40 mg 40 mg PO BID GERD 5 08/21/24 04:29 History capsule,delayed release (Nexium) lorazepam 1 mg tablet 2 mg PO BID anxiety 10/11/16 08/21/24 06:30 History cholecalciferol (vitamin D3) 1,250 50,000 units PO KEITA Vit D deficiency 05/20/17 12/19/21 History mcg (50,000 unit) capsule hydrocodone-acetaminophen 5-325mg 1 ea PO TID PRN Pain 06/22/17 12/21/21 History 5mg-325mg ([place]) budesonide 180 mcg/actuation 2 puff inhalation BID SOB /wheezing 12/13/17 12/21/21 History breath activated powder inhaler (Pulmicort Flexhaler) losartan 50 mg tablet 50 mg PO DAILY blood pressur e 07/04/20 08/21/24 06:30 History montelukast 10 mg tablet 10 mg PO DAILY allergies 08/21/24 04:30 History albuterol sulfate 90 mcg/actuation 1 - 2 puff inhalati on Q4H PRN PRN 04/13/21 Unknown Rx aerosol inhaler (Ventolin HFA) Wheezing #8.5 grams azelastine 137 mcg (0.1 %) nasal 2 spray intranasal BI D PRN 12/22/21 12/21/21 History spray antihistamine albuterol sulfate 2.5 mg/3 mL 2.5 mg inhalation 4X/DAY PRN PRN 08/16/24 Unknown History (0.083 %) solution for nebulization shortness of breat h or wheezing levothyroxine 88 mcg tablet 88 mcg PO DAILY 08/16/24 0 08/21/24 04:30 History Allergy/AdvReac Type Severity Reaction Status Date / Time No Known Allergies Allergy Verified 08/21/24 07:27 Family History Father Cancer Mother Cancer Sister Cancer Brother Cancer Surgical History History of esophagogastroduodenoscopy (EGD) Hx of colonoscopy History of back surgery History of cholecystectomy History of hysterectomy History of back surgery History of hernia repair Social History household members: children Smoking Status: Never smoker second hand exposure: No alcohol intake: never substance use type: does not use Vital Signs Vital Signs Vital Signs: 08/21/24 07:34 08/21/24 07:34 08/21/24 08:08 Temperature 98.1 F 98.1 F Temperature Source Temporal Pulse Rate 61 61 Respiratory Rate 16 16 Respiratory Pattern Normal Blood Pressure 145/67 H 145/67 H Blood Pressure Mean 93 Blood Pressure Source Monitor Blood Pressure Position Left Lateral Blood Pressure Location Left Forearm Pulse Ox 94 94 Oxygen Delivery Method Room Air Room Air Weight Weight: 238 lb 1.588 oz Body Mass Index (BMI) 42.1 Results Lab / Micro Data 08/20/24 14:12 08/20/24 14:12 Labs: Laboratory Results - last 24 hr 08/20/24 14:12: WBC 12.4 H, RBC 4.76, Hgb 11.7 L, Hct 38.3, MCV 80.5 L, MCH 24.6L, MCHC 30.5 L, RDW Std Deviation 48.8 H, RDW Coeff of Patrick 16.8 H, Plt Count 390, MPV 10.0, Sodium 139, Potassium 4.0, Chloride 103, Carbon Dioxide 23.9, Anion Gap 12, BUN 13, Creatinine 0.86, Est GFR (MDRD) Non-Af 73, BUN/Creatinine Ratio 14.8, Glucose 86, Calcium 8.9, TSH 2.620 08/21/24 0903 <Electronically signed by Macario Llanos MD> Cosigner Signature (if applicable): CC: Dr. Olivia Gates, DO; Dr. Macario Llanos MD~ Signed [facility] Work Phone: [phone] Consult note [facility] Medical Records Department [address] [place] [address] Anesthesia Postop Eval I 08/21/24 1100 MR#: [id number] Acct: [id number] Name: NENA KRISHNAN Rep #:[id number] : 1955 69 From: Priscila Morales CRNA PCP: Dr. Olivia Gates, DO Status:REG SDC Y Race: C Location: [place] [address] Anesthesia: Postop Eval I Current Vital Signs Temperature: 97.3 F Pulse Rate: 72 Blood Pressure: 112/96 Respiratory Rate: 14 Pulse Ox: 93 Oxygen Delivery Method: Simple Mask Assessment Airway patent: Yes Spontaneous unlabored respirations: Yes Mental status: Awake nausea: No Vomiting: No Anesthesia Complication: No Fluid Hydration Crystalloid volume administer (ml): 8,000 Total IV fluid infused: 8,000 Progress Note Anesthesia document: Postop Eval 1 completed: Yes 08/21/24 1100 NA> Date _ Priscila Morales CRNA Cosigner Signature: Date CC: ~ Signed [facility]05-14-2025 Discharge summary [facility] Medical Records Department [address] [place] [address] Instructions for Home/Discharge Instructions 08/21/24 1038 MR#: [id number] Acct: [id number] Name: NENA KRISHNAN Rep #:[id number] : 1955 69 From: Macario Llanos MD PCP: Dr. Olivia Gates, DO Status:REG [facility] Discharge Instructions Diet Discharge Diet: No restrictions Activity Ice area for (Minutes): 10 Lifting Restrictions: no lifting, pendulums 4x/day Additional Activity Instructions:: ok for hand wrist elbow rom, ok to remove sling at rest. Dressing / Incision Call your doctor if your incision/area has: Continuous Slow Oozing, Sudden Increased Bleeding, Increased Pain/ Swelling, Increased Redness, Foul Smelling Discharge and Swelling at the incision site Call your doctor if you observe: Fever of 101 or Higher, Coldness, Increased Pain and Numbness or Tingling Change Dressing in: 2 days Cleanse incision/area with: Do not get Incision Wet Additional Dressing/Incision Instructions:: ok to change dressing as needed, keep incisions covered, leave tapes (steri strips) in place Follow Up Care Please Follow Up With: Macario Llanos MD When: next week Test Results: Test results from this visit will be discussed in further detail at your follow- up appointment, if applicable. Discharge Plan Admission Attending Provider: Macario Llanos Primary Care Provider: Olivia Gates Instructions Patient Instructions: After Shoulder Arthroscopy Print Language: New Zealander Discharge Orders/Prescriptions Prescriptions: New oxycodone-acetaminophen [Percocet] 5-325 mg tablet 1 tab PO Q4H MDD 6 PRN (Reason: pain) 4 Days Qty: 30 0RF No Action paroxetine HCl [Paxil] 40 MG tablet 40 mg PO DAILY trazodone 50 MG tablet 50 mg PO QHS esomeprazole magnesium [Nexium] 40 MG capsule 40 mg PO BID lorazepam 1 MG tablet 2 mg PO BID cholecalciferol (vitamin D3) 50,000 UNIT capsule 50,000 units PO KEITA Patient Comments: takes q monday Rx Instructions: takes on monday hydrocodone-acetaminophen [[place]] 1 EACH tablet 1 ea PO TID PRN (Reason: Pain) Pulmicort Flexhaler 1 PUFF inhaler 2 puff inhalation BID Patient Comments: inhale 2 puffs twice daily losartan 50 MG tablet 50 mg PO DAILY montelukast 10 MG tablet 10 mg PO DAILY albuterol sulfate [Ventolin HFA] 90 mcg/actuation HFA aerosol inhaler 1 - 2 puff inhalation Q4H PRN PRN (Reason: Wheezing) Qty: 8.5 0RF azelastine 137 mcg (0.1 %) aerosol,spray 2 spray intranasal BID PRN (Reason: antihistamine) Rx Instructions: administer into each nostril albuterol sulfate 2.5 mg /3 mL (0.083 %) solution for nebulization 2.5 mg inhalation 4X/DAY PRN PRN (Reason: shortness of breath or wheezing) levothyroxine 88 mcg tablet 88 mcg PO DAILY Referrals / Follow Up: Olivia Gates DO [Primary Care Provider] - Macario Llanos MD [Med Staff - Active Staff] - Disposition Disposition (needs filled in before D/C Order can be placed): Home, Self Care 08/21/24 1040Macario Llanos MD CC: Dr. Olivia Gates DO ~ Signed [facility]05-14-2025 Procedure note [facility] Medical Records Department [address] [place] [address] Operative Report 08/21/24 1028 MR#: [id number] Acct: [id number] Name: NENA KRISHNAN Rep #:[id number] : 1955 69 From: Macario Llanos MD PCP: Dr. Olivia Gates DO Status:[facility] Location: [place] [address]- Problems Associated Problem List Diagnoses (1) Arthrosis of right acromioclavicular joint: (2) Primary osteoarthritis, right shoulder: (3) Right rotator cuff tear: (4) Right shoulder pain: Procedures Musculoskeletal [id number]: Other Procedure See Report Operative Report (Standard) Operative Information Date of Procedure: 08/21/24 Pre-Operative Diagnosis: Right shoulder impingement syndrome, rotator cuff tear,AC joint arthrosis,osteoarthritis Post-Operative Diagnosis: Same Surgery/Procedure Performed: Right shoulder arthroscopy, subacromial decompression, debridement, distal clavicle excision, rotator cuff repair drainage design coordinator: Yes Pet Care Assistant: graham Tasks completed by assistant housekeeping manager: Retracting Additional office clerk assistant?: No Type of Anesthesia: Block,Regional and General RN Documented Start/Stop Times: Operation Date: 08/21/24 09:00 Case Time Into Pre-Op 08/21/24 07:04 Anesthesia Start 08/21/24 09:20 Into Room 08/21/24 09:20 Procedure Start 08/21/24 09:45 Procedure Start Time: 09:45 Procedure Stop Time: 10:31 Select all DRAINS/GRAFTS/IMPLANTS that apply: Implanted device Implanted device details: Arthrex trans tendon knotless fiber tack RC anchors x2 and 4.75 mm swivel lock bio composite Estimated Blood Loss: 25 Specimen collected: No Description of surgery: Patient brought to the operating room theater. Placed supine on the table. 2 gIV Ancef administeredprior to the start of the case. General anesthesia induced. Patient transferred right side up lateral decubitus beanbag positioner. Axillary roll used. All bony prominences padded. SCDs on the legs. Upper extremity prepped and draped in the usual sterile fashion with chlorhexidine-based prep solution allowing over 3 minutes drying time prior to draping. 10 pounds of inline traction with the arm in 45 degrees of abduction was used. Preoperative timeout performed to confirm the site patient and the surgery. Began by inserting the arthroscope into the intra-articular portion of the shoulder through a standard posterior arthroscopy portal. Did a full diagnosticarthroscopy. Cartilage on the glenoid had up to grade 3 and 4 changes thick unstable cartilage flap I did a debridement of that at the 4 o'clock p osition. The labrum had extensive fraying did a debridement of the most of the anterior labrum as well as posterior labrum and the rotator interval. Upper border subscapularis - Normal. Long head of the biceps was intact thin no fraying or instability. Did an extensive debridement intra-articularly. There is also loose cartilage bodies which I removed. I did this through a standard inside-out spinal needle localized portal through the rotator interval. I then identified the undersurface of rotator cuff tendon at the supraspinatus there is some fraying at the attachment no full-thickness obvious tears but I marked the area of high-grade fraying fromthe undersurface. Next I inserted the arthroscope into the subacromial space identified the spinalneedle location of the tearing of the supraspinatus tendon at the split tear area on the MRI. Next I performed a subacromial decompression through a lateral portal. Did this for 4 mm using a high-speed bur. Identifiedthe distal clavicle. I did a distal clavicle excision down to flat margins through the anterior portal to flat margins. Hemostasis achieved throughout the case. I identified the tearing area. There is 1 area of high-grade near complete tearing but with mostly good fibers the remaining throughout the supraspinatus tendon so I elected to do a trans tendon repair. I inserted 2 knotless Arthrex fiber tack RC anchors 2.4 mm at the anterior leading edge of the tendon as well as at the supraspinatus infraspinatus junction. I then used the repair stitchesin a crisscrossing fashion to create a horizontal mattress configuration with 2 sutures converting these through the knotless mechanism and securing this down tight with good compression of the footprint. I also used a power pick instrument to perform multiple trephination's of the greater tuberosity to sti mulate healing. I then took the repair stitches the 2 free ends and then inserted these into the Arthrex 4.75 mm bio composite swivel lock anchor just laterally to create a triangular configuration of repair. I cut the suture short this achieved good compression of the footprint of the tear area. Arthroscopy pictures taken and saved throughout the case. Case terminated. Arthroscope withdrawn. Wounds thoroughly irrigated cleaned with wet and dry saline. Portals closed with 3-0 Monocryl sutures. I used cannulas throughout Iused 3 cannulas laterally I closed these portals with the Monocryl suture. I cleaned them with wet and dry dressing followed application of Steri-Strips Adaptic 4 x 4 gauze ABD dressing cloth tape for the upper extremity abduction pillow sling. Patient woken up from the general anesthetic transferred off the operating tabletaken to postanesthetic care unit in stable condition. All sponge needle instrument counts were correct no complications plan for the patient gentle pendulum exercises discharged home according to day surgery criteria and follow- up in the [place]. cpt 37932, 6[address]40, 45755, 46671? Surgical Findings: As above Complications Complications: No Admit VTE Documentation VTE Present on Admission: No VTE Mechan Device Prophylaxis: SCD's VTE Pharm Prophylaxis ordered?: No Reason prophylaxis not ordered: Treatment Not Indicated 08/21/24 1037 Cosigner Signature (if applicable): CC: Dr. Olivia Gates DO; Dr. Macario Llanos MD~ Signed [facility]05-14-2025 Consult note Author Alex Cade [facility] Note Date/Time August 21, 2024 8:10a m [facility] Medical Records Department [address] [place] [address] Pre-Anesthesia Evaluation 08/21/24 0802 MR#: [id number] Acct: [id number] Name: NENA KRISHNAN Rep #:[id number] : 1955 69 From: Alex Cade MD PCP: Dr. Olivia Gates, DO Status:REG SDC Y Race: C Location: [address] ASA Classification* ASA Classification ASA Classification: 3 Assessment & Plan Anesthesia* Anesthesia Assessment Anesthesia Assessment: Discussed sedation and/or anesthesia options, risks, benefits, and alternatives with patient/parents/legal guardian/POA. Questions invited. The patient/parents/legal guardian/POA seems to understand and agrees to proceedwith anesthesia plan. Reviewed the physical assessment, medical history, allergy history and patient home medications list prior to surgery/procedure/anesthetic and documented any changes. Performed airway and anesthesia risk assessments. Anesthesia Type Anesthesia Type: General and Block (Patient is consented for interscalene block.) History Source History Obtained from:: Patient and Chart Anesthesia Focused Assessment* Temperature: 98.1 F Pulse Rate: 61 Blood Pressure: 145/67 Respiratory Rate: 16 Pulse Ox: 94 Oxygen Delivery Method: Room Air Airway Assessment Mouth opens: >3 cm Mallampati Score: III Teeth Condition: Dentures (Patient has upper dentures. They they are out.) and Missing (Patient is edentulous on the bottom.) Neck Range of motion (ROM): Limited ROM (Somewhat decreased extension.) Focused Labs Anesthesia Preop lab: CBC WBC 12.4 K/mm3 (4.4-11.0) H 08/20/24 14:12 5 RBC 4.76 M/mm3 (4.2-5.4) 08/20/24 14:12 08/20/24 Hgb 11.7 g/dL (12.0-15.0) L 08/20/24 14:12 5 Hct 38.3 % (37-47) 08/20/24 14:12 08/20/24 Plt Count 390 K/mm3 (150-450) 08/20/24 14:12 08/20/24 CHEMISTRY Potassium 4.0 mmol/L (3.3-5.1) 08/20/24 14:12 08/20/24 Sodium 139 mmol/L (133-145) 08/20/24 14:12 08/20/24 Magnesium 2.1 mg/dL (1.6-2.6) 12/22/21 14:20 12/22/21 BUN 13 mg/dL (4-19) 08/20/24 14:12 08/20/24 Creatinine 0.85 mg/dL (0.70-1.20) 08/20/24 14:12 08/20/24 Glucose 87 mg/dL (70-99) 08/20/24 14:12 08/20/24 TSH 2.620 uIU/mL (0.300-4.200) 08/20/24 14:08/08 COAG PT 13.9 SECONDS (11.7-14.9) 07/22/18 19:14 Pre-Assessment Diagnosis/Proposed Procedure Planned Operative Procedure(s): RIGHT SHOULDER ARTHROSCOPY SUBCROMIAL DECOMPRESSION DISTAL CLAVICLE RTC REPAIR Anesthesia History Anesthesia History - dosimetrist: Anesthesia History - dosimetrist Hx Hospitalization No 08/16/24 13:41 Any Problems With Anesthesia No 08/16/24 13:41 Cholinesterase deficiency No 08/16/24 13:41 You/Your Family Experience No 08/16/24 13:41 fever (hyperthermia) with Relationship Recent Exposure to Contagious No 08/21/24 07:34 Disease Does patient have nerve No 08/16/24 13:41 stimulator Patient instructed to have device shut off --Does patient have Pacemaker No 08/21/24 07:34 or ICD? When Was Last Pacemaker Check QUESTION #4 FULL TEXT: You/Your Family Experience fever (hyperthermia) with Anesthesia Last Oral Intake Last Oral intake: Last Oral Intake NPO since 06:30 08/21/24 07:34 Meds taken in AM with sips of Yes 08/21/24 07:34 water? Meds patient instructed to take am of surgery Any additional information?: Yes Meds taken in AM with sips of water?: Yes PONV PONV - dosimetrist: PONV - dosimetrist Female Yes 08/16/24 13:41 HX of Motion Sickness No 08/16/24 13:41 HX of N/V After Surgery No 08/16/24 13:41 Non-Smoker Yes 08/16/24 13:41 Duration of Surgery greater Yes 08/16/24 13:41 than 60 minutes Number of Risk Factors 3 08/16/24 13:41 PONV Score Moderate Risk 08/16/24 13:41 Height & Weight Height & Weight: Anesthesia: Height & Weight Height 5 ft 3 in 08/21/24 07:34 Weight: 108 kg 08/21/24 07:34 Body Mass Index (BMI) 42.1 08/21/24 07:34 Respiratory Assessment Respiratory Assessment - dosimetrist: Respiratory Tract Infection Hx - dosimetrist Hx Respiratory Tract Infection No 08/16/24 13:41 STOP Sleep Apnea STOP Sleep Apnea - dosimetrist: STOP Sleep Apnea - dosimetrist Hx Hypertension Yes: CONTROLLED WITH MED 08/16/24 13:41 Hx Sleep Apnea No 08/16/24 13:41 CPAP No 12/22/21 19:02 BIPAP No 12/22/21 19:02 Do you snore loudly (louder No 08/16/24 13:41 than talking or can be heard Do you often feel tired/ No 08/16/24 13:41 fatigued/ sleepy during daytime? Has anyone observed you stop No 08/16/24 13:41 breathing during sleep? STOP Results Negative 08/16/24 13:41 QUESTION #5 FULL TEXT : Do you snore loudly (louder than talking or can be heard through closed doors)? 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 Specify any problems Hx of Preganancy in last 3 No 08/16/24 13:41 Months Nurse Filling Out Transfusion DSCHRIBER 08/16/24 13:41 & Questions: Date: 08/16/24 08/16/24 13:41 Time: 13:43 08/16/24 13:41 Patient unable to answer at this time (ie. confused, unrespo /Reproduction History /Reproductive History - dosimetrist: /Reproductive Hx- dosimetrist Hx Now No 08/16/24 13:41 Gestational Age (in weeks): EDC: Hx Hx Para Hx Section SAB No 08/16/24 13:41 Active Medications Active Medications: Current Medications Generic Name Dose Route Start Last Admin Trade Name Freq PRN Reason Stop Dose Admin Cefazolin Sodium 2 gm/ Sodium 110 mls @ 150 mls/hr 08/21/24 09:00 Chloride IV 08/21/24 09:43 INTRAOP ONE Lactated Ringer's 1,000 mls @ 15 mls/hr 08/21/24 07:15 08/21/24 07:49 IV 15 mls/hr .Q48H GILA Administration PFSH Medical History Wears glasses Wears dentures Post-menopausal Alcohol use Ambulates with cane Arthritis Bladder disease Back pain History of hiatal hernia Non-smoker Persistent dry cough Leg cramps History of pain when walking History of stress test History of echocardiogram Hx of fracture of wrist 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, right shoulder Right rotator cuff tear Right shoulder pain Right rib fracture Pulmonary hypertension Bronchitis GERD (gastroesophageal reflux disease) Depression Anxiety Hypothyroidism HTN (hypertension) Chronic back pain Home Medications ?Medication ?Instructions ?Recorded ?Last Taken ?Type paroxetine HCl 40 mg tablet (Paxil) 40 mg PO DAILY dep ression 01/29/13 08/21/24 06:30 History trazodone 50 mg tablet 50 mg PO QHS sleep 01/29/13 12/21/21 History esomeprazole magnesium 40 mg 40 mg PO BID GERD 5 08/21/24 04:29 History capsule,delayed release (Nexium) lorazepam 1 mg tablet 2 mg PO BID anxiety 10/11/16 08/21/24 06:30 History cholecalciferol (vitamin D3) 1,250 50,000 units PO KEITA Vit D deficiency 05/20/17 12/19/21 History mcg (50,000 unit) capsule hydrocodone-acetaminophen 5-325mg 1 ea PO TID PRN Pain 06/22/17 12/21/21 History 5mg-325mg ([place]) budesonide 180 mcg/actuation 2 puff inhalation BID SOB /wheezing 12/13/17 12/21/21 History breath activated powder inhaler (Pulmicort Flexhaler) losartan 50 mg tablet 50 mg PO DAILY blood pressur e 07/04/20 08/21/24 06:30 History montelukast 10 mg tablet 10 mg PO DAILY allergies 08/21/24 04:30 History albuterol sulfate 90 mcg/actuation 1 - 2 puff inhalati on Q4H PRN PRN 04/13/21 Unknown Rx aerosol inhaler (Ventolin HFA) Wheezing #8.5 grams azelastine 137 mcg (0.1 %) nasal 2 spray intranasal BI D PRN 12/22/21 12/21/21 History spray antihistamine albuterol sulfate 2.5 mg/3 mL 2.5 mg inhalation 4X/DAY PRN PRN 08/16/24 Unknown History (0.083 %) solution for nebulization shortness of breat h or wheezing levothyroxine 88 mcg tablet 88 mcg PO DAILY 08/16/24 0 08/21/24 04:30 History Allergy/AdvReac Type Severity Reaction Status Date / Time No Known Allergies Allergy Verified 08/21/24 07:27 Family History Father Cancer Mother Cancer Sister Cancer Brother Cancer Surgical History History of esophagogastroduodenoscopy (EGD) Hx of colonoscopy History of back surgery History of cholecystectomy History of hysterectomy History of back surgery History of hernia repair Social History household members: children Smoking Status: Never smoker second hand exposure: No alcohol intake: never substance use type: does not use Review of Systems (Anesthesia) ROS Narrative System reviewed and no additional complaints, except as documented. 08/21/2410 <Electronically signed by Alex villavicencio MD> Date _ Alex Cade MD Cosigner Signature: Date CC: ~ Signed [facility] Work Phone: [phone] History and physical note [facility] Medical Records Department [address] [place] [address] History & Physical Exam 08/21/2454 MR#: [id number] Acct: [id number] Name: NENA KRISHNAN Rep #:[id number] : 1955 69 From: Macario Llanos MD PCP: Dr. Olivia Gates, DO Status:[facility] Location: [place] [address]1 HPI - General HPI Narrative NENA KRISHNAN, is a 69 F who presents for right shoulder arthroscopy, subacromial decompression, distal clavicle excision, rotator cuff repair. No changes to history and physical exam. Risks alternatives benefits discussed as well as postoperative instructions and narcotic counseling. Right shoulder marked. Patient understands wishes to proceed no further questions or concerns. MR#: [id number] Acct: [id number] Name: NENA KRISHNAN Rep #: [id number] : 1955 Provider: Dr. Macario Llanos MD Age/Sex: 69/F Location: [facility] Status: Signed Intake Vital Signs 05/30/2512:25 07/05/2508:44 Height 5 ft 3 in 5 ft 3 in Weight: 240 lb 240 lb BMI 42.5 42.5 Intake Visit Reasons: RIGHT SHOULDER Chief Complaint: Right shoulder MRI review Accompanied by: Self Is patient in pain?: Yes Pain scale (1-10): 1 Allergies No Known Allergies Allergy (Verified 07/05/24 09:47) Medications ?Medication ?Instructions ?Recorded ?Confirmed ?Type paroxetine HCl 40 mg tablet (Paxil) 40 mg PO DAILY depression 01/29/1307/05 History trazodone 50 mg tablet 100 mg PO QHS sleep 01/29/13 07/05/24 Hi story esomeprazole magnesium 40 mg 40 mg PO BID GERD 05/16/14 07/05/24 Hist ory capsule,delayed release (Nexium) lorazepam 1 mg tablet 2 mg PO BID anxiety 10/11/16 07/05/24 Hi story cholecalciferol (vitamin D3) 1,250 50,000 units PO KEITA Vit D deficiency 05/1107/05/24 History mcg (50,000 unit) capsule hydrocodone-acetaminophen 5-325mg 1 ea PO TID PRN Pain 06/22/17 07/05/24 H istory 5mg-325mg ([place]) budesonide 180 mcg/actuation 2 puff inhalation BID SOB/wheezing 12/1307/05/24 History breath activated powder inhaler (Pulmicort Flexhaler) levothyroxine 50 mcg tablet 50 mcg PO DAILY thyroid 12/13/17 5 History losartan 50 mg tablet 50 mg PO DAILY blood pressure 07/04/20 0 07/05/24 History montelukast 10 mg tablet 10 mg PO DAILY allergies 07/04/20 History albuterol sulfate 90 mcg/actuation 1 - 2 puff inhalation Q4H PRN PRN 07/05/24 Rx aerosol inhaler (Ventolin HFA) Wheezing #8.5 grams azelastine 137 mcg (0.1 %) nasal 2 spray intranasal BID 12/22/21 07/05/24 History spray antihistamine Have you fallen in the past year?: No PFSH Medical History 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, right shoulder Right rotator cuff tear Right shoulder pain Right rib fracture Rheumatoid arthritis Pulmonary hypertension Bronchitis Asthma RAJNI (obstructive sleep apnea) GERD (gastroesophageal reflux disease) Depression Anxiety Hypothyroidism HTN (hypertension) Chronic back pain Surgical History History of cholecystectomy History of hysterectomy History of back surgery History of hernia repair Family History Father CancerMother CancerSister CancerBrother Cancer Social History household members: children Smoking Status: Never smoker second hand exposure: No alcohol intake: never substance use type: does not use HPI RIGHT SHOULDER Details: This documentation accurately reflects the service provided and the decisions made by me, Dr. Roberto Carlos MD 07/05/24 4321. Part of today?s visit was documented by [ ], acting as scribe. NENA KRISHNAN is a 69 year old F here today for Follow-up right shoulder MRI. Patient still havingpain lateral aspect of the arm radiating down the arm worsewith lifting tries to use left hand more. Worse with reaching up into the cupboards. Patient has tried multiple injections and rounds of physical therapyas well as home-based exercises. Supplemental Info [facility] Imaging Services [address] [place] [address] [id number] Upper Ext Joint Only(Routine) MR#: [id number] Acct: [id number] Name: NENA KRISHNAN Rep #: [id number] : 1955 F 69 From: Manpreet Schwarz DO PCP: Dr. Olivia Gates DO Status: REG CL Study: Upper Ext Joint Only(Routine) Date of Exam: 06/26/24 Exam# [id number] Ordering Dr: Macario Llanos MD PROCEDURE: MRI right shoulder without IV contrast REASON FOR EXAM: Pain TECHNIQUE: Multisequence multiplanar MR images of the right shoulder were obtained without the administration of intravenous contrast. COMPARISON: None. FINDINGS Mild/moderate supraspinatus tendinopathy with 2 small split tears at the anterior and mid insertional fibers. Infraspinatus and subscapularis tendons are intact. No significant rotator cuff muscle atrophy or edema. Long head biceps tendon is intact. Minimal posterior humeral head subluxation. Probable degenerative fraying of the posterosuperior and posterior labrum which is diffusely diminutive. No paralabral cysts. Tgkh-sw-[id number] diffuse thinning of the glenoid cartilage. High-grade chondral thinning along the superomedial humeral head over a 15 mm diameter. No sizable glenohumeral joint effusion. Mild pericapsular edema along the inferior glenohumeral ligament. Acromioclavicular joint alignment is intact. No significant joint effusion. Mild acromioclavicular joint osteoarthritis including small marginal osteophytes and mild capsular hypertrophy. Negative for fracture or marrow replacement. Enthesopathic cysts along the anterior aspect of the greater and lesser humeral tuberosities. No significant fluid in the subacromial/subdeltoid bursa. MRI/Upper Ext Joint Only(Routine) IMPRESSION: 1. Supraspinatus tendinopathy with superimposed split tears at the anterior and mid insertion. 2. Mild glenohumeral and acromioclavicular joint osteoarthritis as detailed above. 3. Mild pericapsular edema along the inferior glenohumeral ligament which may relate to capsular sprain or adhesive capsulitis. Please correlate clinically. Reading Location: [facility] independently reviewed the imaging. Concur with radiologist report. Coding Level of Care Code Off vis,est,level 3 Diagnoses Right shoulder pain M25.511 Right rotator cuff tear M75.101 Primary osteoarthritis, right shoulder M19.011 Arthrosis of right acromioclavicular joint M19.011 Assessment and Plan Assessment and Plan (1) Right shoulder pain: Status: Acute Plan: NENA KRISHNAN is a 69 year old F here today for Follow-up right shoulder MRI, showing Supraspinatus tendinopathy with superimposed split tears at the anteriorand mid insertion, mild glenohumeral and acromioclavicular joint OA, and mild pericapsular edema along the inferior glenohumeral ligament which may relate to capsular sprain or adhesive capsulitis. Patient counseled on the pros and cons risks and benefits of continued nonoperative management versus surgery. In this case surgery be in the form of a right shoulder arthroscopy, subacromial decompression, distal clavicle excision, rotator cuff repair. Patient wished to go ahead with that they understood no further questions or concerns. Patient is a non-smoker no diabetes and no blood thinners. Pros and cons risks and benefits were discussed with the patient including but not limited to infection, pain, stiffness, bleeding, damage to surrounding structures, neurovascular injury, recurrence or retear, failure or wear of hardware or fixation, instability, fracture, deepvein thrombosis and pulmonary embolism, anesthetic risks, , patient dissatisfaction, need for further surgery and other risks. Patient understood and wished to proceed with surgery,and signed the informed consent documentation. Patient counselled on non-operative and operative means of treating shoulder pain. Conservative options include but not limited to: 1. Rest and Activity Modification: Giving your shoulder time to heal by avoiding movements that cause pain can help. This may involve limiting overhead activities or heavy lifting. 2. Physical Therapy: A physical therapist can guide you through exercises that strengthen the muscles around the shoulder, improve flexibility, and reduce strain on the rotator cuff tendon. 3. Ice and Heat Therapy: Applying ice to the shoulder can help reduce swelling and pain, especially after activity. Heat can be helpful to relax tense muscles and improve blood flow before exercises. 4. Anti-Inflammatory Medications: [id number] medications like ibuprofen or naproxen can help reduce pain and inflammation in the tendon. 5. Corticosteroid Injections: If the pain is more severe, a steroid injection can reduce inflammation in the shoulder and provide relief for a longer period. 6. Platelet-Rich Plasma (PRP) Injection: This treatment involves using your own blood to promote healing in the tendon. The plasma is rich in growth factors that can encourage tissue repair. 7. TENS (Transcutaneous Electrical Nerve Stimulation): This therapy uses a small electrical current to help manage pain and promote healing by stimulating nerves. (2) Right rotator cuff tear: Status: Acute (3) Primary osteoarthritis, right shoulder: Status: Acute (4) Arthrosis of right acromioclavicular joint: Status: Acute Clinical Quality Measures Falls Risk Screening/Assistive Devices Have you fallen in the past year?: No Ortho Exam General General: Yes no acute distress Neurologic: Yes alert and Yes oriented x3 Psychologic: Yes reasonable and appropriate Right Shoulder Skin/Wound: Yes CDI, No ecchymosis, No erythema and No swelling Testing: Positive Hawkin's, Neer's, Speed's, TTP Biceps, TTP AC Joint, empty can and cross arm; Negative Drop Arm or scapular winging SHOULDER: normal motor and sens to ax nerve, and MRU and AIN/PIN Active forward elevation to 90 degrees passively to 155 degrees and then limited by pain after that. External rotation 40 degrees again limited by pain. Strength in forward elevation 4 out of 5. ER 4/5. PFSH Medical History Wears glasses Wears dentures Post-menopausal Alcohol use Ambulates with cane Arthritis Bladder disease Back pain History of hiatal hernia Non-smoker Persistent dry cough Leg cramps History of pain when walking History of stress test History of echocardiogram Hx of fracture of wrist 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, right shoulder Right rotator cuff tear Right shoulder pain Right rib fracture Pulmonary hypertension Bronchitis GERD (gastroesophageal reflux disease) Depression Anxiety Hypothyroidism HTN (hypertension) Chronic back pain Home Medications ?Medication ?Instructions ?Recorded ?Last Taken ?Type paroxetine HCl 40 mg tablet (Paxil) 40 mg PO DAILY dep ression 01/29/13 08/21/24 06:30 History trazodone 50 mg tablet 50 mg PO QHS sleep 01/29/13 12/21/21 History esomeprazole magnesium 40 mg 40 mg PO BID GERD 5 08/21/24 04:29 History capsule,delayed release (Nexium) lorazepam 1 mg tablet 2 mg PO BID anxiety 10/11/16 08/21/24 06:30 History cholecalciferol (vitamin D3) 1,250 50,000 units PO KEITA Vit D deficiency 05/20/17 12/19/21 History mcg (50,000 unit) capsule hydrocodone-acetaminophen 5-325mg 1 ea PO TID PRN Pain 06/22/17 12/21/21 History 5mg-325mg ([place]) budesonide 180 mcg/actuation 2 puff inhalation BID SOB /wheezing 12/13/17 12/21/21 History breath activated powder inhaler (Pulmicort Flexhaler) losartan 50 mg tablet 50 mg PO DAILY blood pressur e 07/04/20 08/21/24 06:30 History montelukast 10 mg tablet 10 mg PO DAILY allergies 08/21/24 04:30 History albuterol sulfate 90 mcg/actuation 1 - 2 puff inhalati on Q4H PRN PRN 04/13/21 Unknown Rx aerosol inhaler (Ventolin HFA) Wheezing #8.5 grams azelastine 137 mcg (0.1 %) nasal 2 spray intranasal BI D PRN 12/22/21 12/21/21 History spray antihistamine albuterol sulfate 2.5 mg/3 mL 2.5 mg inhalation 4X/DAY PRN PRN 08/16/24 Unknown History (0.083 %) solution for nebulization shortness of breat h or wheezing levothyroxine 88 mcg tablet 88 mcg PO DAILY 08/16/24 0 08/21/24 04:30 History Allergy/AdvReac Type Severity Reaction Status Date / Time No Known Allergies Allergy Verified 08/21/24 07:27 Family History Father Cancer Mother Cancer Sister Cancer Brother Cancer Surgical History History of esophagogastroduodenoscopy (EGD) Hx of colonoscopy History of back surgery History of cholecystectomy History of hysterectomy History of back surgery History of hernia repair Social History household members: children Smoking Status: Never smoker second hand exposure: No alcohol intake: never substance use type: does not use Vital Signs Vital Signs Vital Signs: 08/21/24 07:34 08/21/24 07:34 08/21/24 08:08 Temperature 98.1 F 98.1 F Temperature Source Temporal Pulse Rate 61 61 Respiratory Rate 16 16 Respiratory Pattern Normal Blood Pressure 145/67 H 145/67 H Blood Pressure Mean 93 Blood Pressure Source Monitor Blood Pressure Position Left Lateral Blood Pressure Location Left Forearm Pulse Ox 94 94 Oxygen Delivery Method Room Air Room Air Weight Weight: 238 lb 1.588 oz Body Mass Index (BMI) 42.1 Results Lab / Micro Data 08/20/24 14:12 08/20/24 14:12 Labs: Laboratory Results - last 24 hr 08/20/24 14:12: WBC 12.4 H, RBC 4.76, Hgb 11.7 L, Hct 38.3, MCV 80.5 L, MCH 24.6L, MCHC 30.5 L, RDWStd Deviation 48.8 H, RDW Coeff of Patrick 16.8 H, Plt Count 390, MPV 10.0, Sodium 139, Potassium 4.0, Chloride 103, Carbon Dioxide 23.9, Anion Gap 12, BUN 13, Creatinine 0.86, Est GFR (MDRD) Non-Af 73, BUN/Creatinine Ratio 14.8, Glucose 86, Calcium 8.9, TSH 2.620 08/21/24 0903 Cosigner Signature (if applicable): CC: Dr. Olivia Gates, DO; Dr. Macario Llanos MD~ Signed [facility]05-14-2025 [facility] Medical Records Department [address] [place] [address] History Physical Exam 08/21/24 0854 MR#: [id number] Acct: [id number] Name: NENA KRISHNAN Rep #: [id number] : 1955 69 From: Macario Llanos MD PCP: Dr. Olivia Gates DO Status:[facility] Location: [place] [address] HPI - General HPI Narrative NENA KRISHNAN, is a 69 F who presents for right shoulder arthroscopy, subacromial decompression, distal clavicle excision, rotator cuff repair. No changes to history and physical exam. Risks alternatives benefits discussed as well as postoperative instructions and narcotic counseling. Right shoulder marked. Patient understands wishes to proceed no further questions or concerns. MR#: [id number] Acct: [id number] Name: NENA KRISHNAN Rep #: [id number] : 1955 Provider: Dr. Macario Llanos MD Age/Sex: 69/F Location: [facility] Status: Signed Intake Vital Signs 05/30/2512:25 07/05/2508:44 Height 5 ft 3 in 5 ft 3 in Weight: 240 lb 240 lb BMI 42.5 42.5 Intake Visit Reasons: RIGHT SHOULDER Chief Complaint: Right shoulder MRI review Accompanied by: Self Is patient in pain?: Yes Pain scale (1-10): 1 Allergies No Known Allergies Allergy (Verified 07/05/24 09:47) Medications ???Medication ???Instructions ???Recorded ???Confirmed ???Type paroxetine HCl 40 mg tablet (Paxil) 40 mg PO DAILY depression 01/29/13 07/05/24 Histor y trazodone 50 mg tablet 100 mg PO QHS sleep 01/29/13 07/05/24 History esomeprazole magnesium 40 mg 40 mg PO BID GERD 05/16/14 07/05/24 History capsule,delayed release (Nexium) lorazepam 1 mg tablet 2 mg PO BID anxiety 10/11/16 07/05/24 History cholecalciferol (vitamin D3) 1,250 50,000 units PO KEITA Vit D deficiency 05/20/1707/05 History mcg (50,000 unit) capsule hydrocodone-acetaminophen 5-325mg 1 ea PO TID PRN Pain 06/22/17 07/05/24 History 5mg-325mg ([place]) budesonide 180 mcg/actuation 2 puff inhalation BID SOB/wheezing 12/13/17 History breath activated powder inhaler (Pulmicort Flexhaler) levothyroxine 50 mcg tablet 50 mcg PO DAILY thyroid 12/13/17 07/05/24 History losartan 50 mg tablet 50 mg PO DAILY blood pressure 07/04/20 07/05/24 Hi story montelukast 10 mg tablet 10 mg PO DAILY allergies 07/04/20 07/05/24 History albuterol sulfate 90 mcg/actuation 1 - 2 puff inhalation Q4H PRN PRN 04/13/21 5 Rx aerosol inhaler (Ventolin HFA) Wheezing #8.5 grams azelastine 137 mcg (0.1 %) nasal 2 spray intranasal BID 12/22/21 07/05/24 History spray antihistamine Have you fallen in the past year?: No PFSH Medical History 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, right shoulder Right rotator cuff tear Right shoulder pain Right rib fracture Rheumatoid arthritis Pulmonary hypertension Bronchitis Asthma RAJNI (obstructive sleep apnea) GERD (gastroesophageal reflux disease) Depression Anxiety Hypothyroidism HTN (hypertension) Chronic back pain Surgical History History of cholecystectomy History of hysterectomy History of back surgery History of hernia repair Family History Father CancerMother CancerSister CancerBrother Cancer Social History household members: children Smoking Status: Never smoker second hand exposure: No alcohol intake: never substance use type: does not use HPI RIGHT SHOULDER Details: This documentation accurately reflects the service provided and the decisions made by me, Dr. Macario Llanos MD 07/05/24 0850. Part of today???s visit was documented by [ ], acting as scribe. NENA KRISHNAN is a 69 year old F here today for Follow-up right shoulder MRI. Patient still having pain lateral aspect of the arm radiating down the arm worse with lifting tries to use left hand more. Worse with reaching up into the cupboards. Patient has tried multiple injections and rounds of physical therapy as well as home-based exercises. Supplemental Info [facility] Imaging Services [address] [place] [address] Upper Ext Joint Only(Routine) MR#: [id number] Acct: [id number] Name: NENA KRISHNAN Rep #: [id number] : 1955 F 69 From: Manpreet Schwarz DO PCP: Dr. Olivia Gates, DO Status: REG CLI Study: Upper Ext Joint Only(Routine) Date of Exam (more content not included)...[facility]05-14-2025 Consult note [facility] Medical Records Department [address] [place] [address] Pre-Anesthesia Evaluation 08/21/24 0802 MR#: [id number] Acct: [id number] Name: NENA KRISHNAN Rep #:[id number] : 1955 69 From: Alex Cade MD PCP: Dr. Olivia Gates, DO Status:REG SDC Y Race: C Location: [place] [address]- ASA Classification* ASA Classification ASA Classification: 3 Assessment & Plan Anesthesia* Anesthesia Assessment Anesthesia Assessment: Discussed sedation and/or anesthesia options, risks, benefits, and alternatives with patient/parents/legal guardian/POA. Questions invited. The patient/parents/legal guardian/POA seems to understand and agrees to proceedwith anesthesia plan. Reviewed the physical assessment, medical history, allergy history and patient home medications list prior to surgery/procedure/anesthetic and documented any changes. Performed airway and anesthesia risk assessments. Anesthesia Type Anesthesia Type: General and Block (Patient is consented for interscalene block.) History Source History Obtained from:: Patient and Chart Anesthesia Focused Assessment* Temperature: 98.1 F Pulse Rate: 61 Blood Pressure: 145/67 Respiratory Rate: 16 Pulse Ox: 94 Oxygen Delivery Method: Room Air Airway Assessment Mouth opens: >3 cm Mallampati Score: III Teeth Condition: Dentures (Patient has upper dentures. They they are out.) and Missing (Patient is edentulous on the bottom.) Neck Range of motion (ROM): Limited ROM (Somewhat decreased extension.) Focused Labs Anesthesia Preop lab: CBC WBC 12.4 K/mm3 (4.4-11.0) H 08/20/24 14:12 5 RBC 4.76 M/mm3 (4.2-5.4) 08/20/24 14:12 08/20/24 Hgb 11.7 g/dL (12.0-15.0) L 08/20/24 14: 5 Hct 38.3 % (37-47) 08/20/24 14:12 08/20/24 Plt Count 390 K/mm3 (150-450) 08/20/24 14:12 08/20/24 CHEMISTRY Potassium 4.0 mmol/L (3.3-5.1) 08/20/24 14:12 08/20/24 Sodium 139 mmol/L (133-145) 08/20/24 14:12 08/20/24 Magnesium 2.1 mg/dL (1.6-2.6) 12/22/21 14:20 12/22/21 BUN 13 mg/dL (4-19) 08/20/24 14:12 08/20/24 Creatinine 0.85 mg/dL (0.70-1.20) 08/20/24 14:12 08/20/24 Glucose 87 mg/dL (70-99) 08/20/24 14:12 08/20/24 TSH 2.620 uIU/mL (0.300-4.200) 08/20/24 14:08/08 COAG PT 13.9 SECONDS (11.7-14.9) 07/22/18 19:14 Pre-Assessment Diagnosis/Proposed Procedure Planned Operative Procedure(s): RIGHT SHOULDER ARTHROSCOPY SUBCROMIAL DECOMPRESSION DISTAL CLAVICLERTC REPAIR Anesthesia History Anesthesia History - dosimetrist: Anesthesia History - dosimetrist Hx Hospitalization No 08/16/24 13:41 Any Problems With Anesthesia No 08/16/24 13:41 Cholinesterase deficiency No 08/16/24 13:41 You/Your Family Experience No 08/16/24 13:41 fever (hyperthermia) with Relationship Recent Exposure to Contagious No 08/21/24 07:34 Disease Does patient have nerve No 08/16/24 13:41 stimulator Patient instructed to have device shut off --Does patient have Pacemaker No 08/21/24 07:34 or ICD? When Was Last Pacemaker Check QUESTION #4 FULL TEXT: You/Your Family Experience fever (hyperthermia) with Anesthesia Last Oral Intake Last Oral intake: Last Oral Intake NPO since 06:30 08/21/24 07:34 Meds taken in AM with sips of Yes 08/21/24 07:34 water? Meds patient instructed to take am of surgery Any additional information?: Yes Meds taken in AM with sips of water?: Yes PONV PONV - dosimetrist: PONV - dosimetrist Female Yes 08/16/24 13:41 HX of Motion Sickness No 08/16/24 13:41 HX of N/V After Surgery No 08/16/24 13:41 Non-Smoker Yes 08/16/24 13:41 Duration of Surgery greater Yes 08/16/24 13:41 than 60 minutes Number of Risk Factors 3 08/16/24 13:41 PONV Score Moderate Risk 08/16/24 13:41 Height & Weight Height & Weight: Anesthesia: Height & Weight Height 5 ft 3 in 08/21/24 07:34 Weight: 108 kg 08/21/24 07:34 Body Mass Index (BMI) 42.1 08/21/24 07:34 Respiratory Assessment Respiratory Assessment - dosimetrist: Respiratory Tract Infection Hx - dosimetrist Hx Respiratory Tract Infection No 08/16/24 13:41 STOP Sleep Apnea STOP Sleep Apnea - dosimetrist: STOP Sleep Apnea - dosimetrist Hx Hypertension Yes: CONTROLLED WITH MED 08/16/24 13:41 Hx Sleep Apnea No 08/16/24 13:41 CPAP No 12/22/21 19:02 BIPAP No 12/22/21 19:02 Do you snore loudly (louder No 08/16/24 13:41 than talking or can be heard Do you often feel tired/ No 08/16/24 13:41 fatigued/ sleepy during daytime? Has anyone observed you stop No 08/16/24 13:41 breathing during sleep? STOP Results Negative 08/16/24 13:41 QUESTION #5 FULL TEXT : Do you snore loudly (louder than talking or can be heard through closeddoors)? 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 Specify any problems Hx of Preganancy in last 3 No 08/16/24 13:41 Months Nurse Filling Out Transfusion DSCHRIBER 08/16/24 13:41 & Questions: Date: 08/16/24 08/16/24 13:41 Time: 13:43 08/16/24 13:41 Patient unable to answer at this time (ie. confused, unrespo /Reproduction History /Reproductive History - dosimetrist: /Reproductive Hx- dosimetrist Hx Now No 08/16/24 13:41 Gestational Age (in weeks): EDC: Hx Hx Para Hx Section SAB No 08/16/24 13:41 Active Medications Active Medications: Current Medications Generic Name Dose Route Start Last Admin Trade Name Freq PRN Reason Stop Dose Admin Cefazolin Sodium 2 gm/ Sodium 110 mls @ 150 mls/hr 08/21/24 09:00 Chloride IV 08/21/24 09:43 INTRAOP ONE Lactated Ringer's 1,000 mls @ 15 mls/hr 08/21/24 07:15 08/21/24 07:49 IV 15 mls/hr .Q48H GILA Administration PFSH Medical History Wears glasses Wears dentures Post-menopausal Alcohol use Ambulates with cane Arthritis Bladder disease Back pain History of hiatal hernia Non-smoker Persistent dry cough Leg cramps History of pain when walking History of stress test History of echocardiogram Hx of fracture of wrist 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, right shoulder Right rotator cuff tear Right shoulder pain Right rib fracture Pulmonary hypertension Bronchitis GERD (gastroesophageal reflux disease) Depression Anxiety Hypothyroidism HTN (hypertension) Chronic back pain Home Medications ?Medication ?Instructions ?Recorded ?Last Taken ?Type paroxetine HCl 40 mg tablet (Paxil) 40 mg PO DAILY dep ression 01/29/13 08/21/24 06:30 History trazodone 50 mg tablet 50 mg PO QHS sleep 01/29/13 12/21/21 History esomeprazole magnesium 40 mg 40 mg PO BID GERD 5 08/21/24 04:29 History capsule,delayed release (Nexium) lorazepam 1 mg tablet 2 mg PO BID anxiety 10/11/16 08/21/24 06:30 History cholecalciferol (vitamin D3) 1,250 50,000 units PO KEITA Vit D deficiency 05/20/17 12/19/21 History mcg (50,000 unit) capsule hydrocodone-acetaminophen 5-325mg 1 ea PO TID PRN Pain 06/22/17 12/21/21 History 5mg-325mg ([place]) budesonide 180 mcg/actuation 2 puff inhalation BID SOB /wheezing 12/13/17 12/21/21 History breath activated powder inhaler (Pulmicort Flexhaler) losartan 50 mg tablet 50 mg PO DAILY blood pressur e 07/04/20 08/21/24 06:30 History montelukast 10 mg tablet 10 mg PO DAILY allergies 08/21/24 04:30 History albuterol sulfate 90 mcg/actuation 1 - 2 puff inhalati on Q4H PRN PRN 04/13/21 Unknown Rx aerosol inhaler (Ventolin HFA) Wheezing #8.5 grams azelastine 137 mcg (0.1 %) nasal 2 spray intranasal BI D PRN 12/22/21 12/21/21 History spray antihistamine albuterol sulfate 2.5 mg/3 mL 2.5 mg inhalation 4X/DAY PRN PRN 08/16/24 Unknown History (0.083 %) solution for nebulization shortness of breat h or wheezing levothyroxine 88 mcg tablet 88 mcg PO DAILY 08/16/24 0 08/21/24 04:30 History Allergy/AdvReac Type Severity Reaction Status Date / Time No Known Allergies Allergy Verified 08/21/24 07:27 Family History Father Cancer Mother Cancer Sister Cancer Brother Cancer Surgical History History of esophagogastroduodenoscopy (EGD) Hx of colonoscopy History of back surgery History of cholecystectomy History of hysterectomy History of back surgery History of hernia repair Social History household members: children Smoking Status: Never smoker second hand exposure: No alcohol intake: never substance use type: does not use Review of Systems (Anesthesia) ROS Narrative System reviewed and no additional complaints, except as documented. 08/21/24 0810 maye OZUNA> Date _ Alex Cade MD Cosigner Signature: Date CC: ~ Signed [facility]03-28-2025 Evaluation note* Diagnosis Onset Date Resolution Status Admit Date Arthrosis of right acromioclavicular joint acute July 052024 9:43am Primary osteoarthritis, righ t shoulder acute July 05, 2024 9:43am Right rotator cuff tear acute 2024 9:43am Right shoulder pain acute July 05, 2024 9:43am Arthrosis of right acromioclavicular joint acute August 3:46pm Primary osteoarthritis, righ t shoulder acute August 21, 2024 3 :46pm Right rotator cuff tear acute [facility] 2024 3:46pm Right shoulder pain acute August 082024 3:46pm Arthrosis of right acromioclavicular joint acute August 10:08am Primary osteoarthritis, righ t shoulder acute September 03, 2024 1 0:08am Right rotator cuff tear acute [facility] 2024 10:08am Right shoulder pain acute August 092024 10:08am Arthrosis of right acromioclavicular joint acute September 11:03am Primary osteoarthritis, righ t shoulder acute October 01, 2024 11:03am Right rotator cuff tear acute [facility] 2024 11:03am Right shoulder pain acute October 01, 2024 11:03am [facility] Work Phone: 1(314) 710-360603-28-2025 Evaluation note* Diagnosis Onset Date Resolution Status Admit Date Arthrosis of right acromioclavicular joint acute July 052024 9:43am Primary osteoarthritis, righ t shoulder acute July 05, 2024 9:43am Right rotator cuff tear acute [facility] 2024 9:43am Right shoulder pain acute July 05, 2024 9:43am Arthrosis of right acromioclavicular joint acute August 3:46pm Primary osteoarthritis, righ t shoulder acute August 21, 2024 3 :46pm Right rotator cuff tear acute [facility] 2024 3:46pm Right shoulder pain acute August 082024 3:46pm Arthrosis of right acromioclavicular joint acute August 10:08am Primary osteoarthritis, righ t shoulder acute September 03, 2024 1 0:08am Right rotator cuff tear acute [facility] 2024 10:08am Right shoulder pain acute August 092024 10:08am Arthrosis of right acromioclavicular joint acute September 11:03am Primary osteoarthritis, righ t shoulder acute October 01, 2024 11:03am Right rotator cuff tear acute J une 2024 11:03am Right shoulder pain acute October 01, 2024 11:03am Arthrosis of right acromioclavicular joint acute October 11:15am Primary osteoarthritis, righ t shoulder acute October 28, 2024 11:15am Right rotator cuff tear acute J 2024 11:15am Right shoulder pain acute October 28, 2024 11:15am [facility] Work Phone: 1(147) 585-653602-20-2025 Evaluation note* Diagnosis Onset Date Resolution Status Admit Date Right rib fracture acute 2024 1:18pm Right shoulder pain acute 2024 1:18pm [facility] Work Phone: 1(474) 842-772602-20-2025 Evaluation note* Diagnosis Onset Date Resolution Status Admit Date Right rib fracture acute 2024 1:18pm Right shoulder pain acute 2024 1:18pm Arthrosis of right acromioclavicular joint acute July 052024 9:43am Primary osteoarthritis, righ t shoulder acute July 05, 2024 9:43am Right rotator cuff tear acute 2024 9:43am Right shoulder pain acute July 05, 2024 9:43am [facility] Work Phone: 1(448) 960-849502-20-2025 Evaluation note* Diagnosis Onset Date Resolution Status Admit Date Right rib fracture acute 2024 1:18pm Right shoulder pain acute 2024 1:18pm Arthrosis of right acromioclavicular joint acute July 052024 9:43am Primary osteoarthritis, righ t shoulder acute July 05, 2024 9:43am Right rotator cuff tear acute 2024 9:43am Right shoulder pain acute July 05, 2024 9:43am Arthrosis of right acromioclavicular joint acute August 3:46pm Primary osteoarthritis, righ t shoulder acute August 21, 2024 3 :46pm Right rotator cuff tear acute M ay 2024 3:46pm Right shoulder pain acute August 082024 3:46pm [facility] Work Phone: 1(469) 718-731002-20-2025 Evaluation note* Diagnosis Onset Date Resolution Status Admit Date Right rib fracture acute Februa ry 2024 1:18pm Right shoulder pain acute francisco j2024 1:18pm Arthrosis of right acromioclavicular joint acute July 052024 9:43am Primary osteoarthritis, righ t shoulder acute July 05, 2024 9:43am Right rotator cuff tear acute M arch 2024 9:43am Right shoulder pain acute July 05, 2024 9:43am Arthrosis of right acromioclavicular joint acute August 3:46pm Primary osteoarthritis, righ t shoulder acute August 21, 2024 3 :46pm Right rotator cuff tear acute M ay 2024 3:46pm Right shoulder pain acute August 082024 3:46pm Arthrosis of right acromioclavicular joint acute August 10:08am Primary osteoarthritis, righ t shoulder acute September 03, 2024 1 0:08am Right rotator cuff tear acute ay 2024 10:08am Right shoulder pain acute August 092024 10:08am [facility] Work Phone: [phone]) [phone] Procedure [facility] 11-07-2022 Discharge summary Author Federico Arango [facility] November 07, 2022 5:50pm Note Date/Time November 07, 2022 5:03 pm [facility] Medical Records Department [address] [place] [address] Emergency Department Summary 11/07/22 MR#: [id number] Acct: [id number] Name: NENA KRISHNAN Rep #:[id number] : 1955 67 From: Federico Arango MD PCP: Dr. Olivia Gates, DO Status:REG ER Location: ED HPI History of Present Illness Chief Complaint: Back Detail of Chief Complaint: Left-sided back pain radiating anteriorly Informant: patient Onset/Context/Timing Onset: Today and Hours Context: Sudden Onset Chronic pain exacerbated by: Not applicable patient seen Injury: - (Not applicable) Timing: Continuous Quality: - (Sharp concerned she has a pinched nerve apparently MRI) Location: Thoracic Current Severity: Mild Maximum Severity: Severe Worsened by: improves with Movement, Bending and - (Palpitation) Relieved by: Nothing Associated Symptoms Associated Symptoms: - (No respiratory or cardiac symptoms); Negative for Numbness, Tingling, Radiation to Right Leg, Radiation to Left Leg, Fever, Abdominal Pain, Dysuria, Unable to Ambulate, Unable to Transfer, Urinary Retention, Urinary Incontinence, Constipation or Fecal Incontinence Narrative Narrative: Patient is a 59-year-old woman presents with left-sided thoracic back pain that radiates anteriorly. She states this happened before. She did not take the hydrocodone and acetaminophen she was prescribed because she did not want to mask the pain. She denies cardiac or respiratory symptoms. She denies fever, chills night sweats. She denies trauma. Pain is worse with movement. Prior similar symptoms: Yes PFSH PFSH Medical History Anxiety Asthma Bronchitis Chronic back pain Depression GERD (gastroesophageal reflux disease) HTN (hypertension) Hypothyroidism RAJNI (obstructive sleep apnea) Pulmonary hypertension Rheumatoid arthritis Home Medications paroxetine HCl 40 mg tablet (Paxil) 40 mg PO DAILY depression 01/29/13 [History Last Taken 12/22/21] trazodone 50 mg tablet 100 mg PO QHS sleep 01/29/13 [History Last Taken 12/21/21] esomeprazole magnesium 40 mg capsule,delayed release (Nexium) 40 mg PO BID GERD 05/16/14 [History Last Taken 12/22/21] lorazepam 1 mg tablet 2 mg PO BID anxiety 10/11/16 [History Last Taken 12/22/21] cholecalciferol (vitamin D3) 1,250 mcg (50,000 unit) capsule 50,000 units PO KEITA Vit D deficiency 05/20/17 [History Last Taken 12/19/21] albuterol sulfate 90 mcg/actuation aerosol inhaler 1 - 2 puff inhalation Q6H PRNPRN Asthma ##1 05/23/17 [Rx Last Taken 06/16/18] hydrocodone-acetaminophen 5-325mg 5mg-325mg ([place]) 1 ea PO TID PRN Pain 06/22/17 [History Last Taken 12/21/21] budesonide 180 mcg/actuation breath activated powder inhaler (Pulmicort Flexhaler) 2 puff inhalation BID SOB/wheezing 12/13/17 [History Last Taken 12/21/21] levothyroxine 50 mcg tablet 50 mcg PO DAILY thyroid 12/13/17 [History Last Taken 12/21/21] losartan 50 mg tablet 50 mg PO DAILY blood pressure 07/04/20 [History Last Taken 12/22/21] montelukast 10 mg tablet 10 mg PO DAILY allergies 07/04/20 [History Last Taken 12/22/21] albuterol sulfate 90 mcg/actuation aerosol inhaler (Ventolin HFA) 1 - 2 puff inhalation Q4H PRN PRN Wheezing #8.5 grams 04/13/21 [Rx Last Taken Unknown] atorvastatin 40 mg tablet 40 mg PO QHS cholesterol 12/22/21 [History Last Taken 12/21/21] azelastine 137 mcg (0.1 %) nasal spray aerosol 2 spray intranasal BID antihistamine 12/22/21 [History Last Taken 12/21/21] pantoprazole 40 mg tablet,delayed release 40 mg PO DAILY acid reflux 12/22/21 [History Last Taken 12/22/21] cephalexin 500 mg capsule 500 mg PO Q6 #20 CAPSULES 06/10/22 [Rx Last Taken Unknown] meclizine 25 mg tablet 25 mg PO 4X/DAY PRN PRN Dizziness #20 tabs 06/10/22 [Rx Last Taken Unknown] Allergy/AdvReac Type Severity Reaction Status Date / Time lisinopril AdvReac Other Verified 11/07/22 15:02 Family History Father Cancer Mother Cancer Sister Cancer Brother Cancer Surgical History History of back surgery History of cholecystectomy History of hernia repair History of hysterectomy Social History Smoking Status: Never smoker second hand exposure: No alcohol intake: never substance use type: does not use ROS ROS ED Constitutional Constitutional ED: Denies chills, fever(s), subjective, sweats or weight loss Cardiovascular Cardiovascular: Denies chest pain, orthopnea, palpitations, paroxysmal nocturnaldyspnea or racing heartbeat Respiratory/Chest Respiratory/Chest: Denies dyspnea, dyspnea on exertion, orthopnea, paroxysmal nocturnal dyspnea or sputum Gastrointestinal Gastrointestinal: Denies constipation, diarrhea, melena, nausea or vomiting Genitourinary Genitourinary ED: Denies dysuria, hematuria or urinary frequency Musculoskeletal Musculoskeletal: Reports back pain; Denies arthralgias, myalgias or neck pain Integumentary Denies rash Neurologic Neurologic: Denies paresthesias or weakness Psychiatric Psychiatric: Reports anxiety and other Details: Patient states she took one of her anxiety meds because the pain made her anxious. EXAM Physical Exam Const Vital Signs: 11/07/22 15:02 Temperature 97.7 F L Temperature Source Temporal Pulse Rate 67 Respiratory Rate 20 H Blood Pressure 130/74 H Blood Pressure Mean 92 Pulse Ox 97 Oxygen Delivery Method Room Air Positive well nourished, well developed and obese General Appearance ED: well developed and NAD; Negative for pallor Nutritional Appearance: obese HEENT Reports moist mucous membranes HEENT Narrative: Head is atraumatic normocephalic. Ears normal. Nares patent. Posterior pharynx is normal. Eyes PERRL and EOMs intact bilaterally General Eye ED: Negative for pale conjunctiva or scleral icterus Neck no lymphadenopathy, supple and no JVD Resp normal respiratory effort and clear to auscultation bilaterally Cardio regular rate, regular rhythm, S1 normal heart sound, S2 normal heart sound and no murmurs Cardio Narrative: There is no reproducible chest pain. There is no crepitus or subcutaneous air. There is no rash to suggest herpes varicella-zoster. There is no hyperesthesia to light touch. GI normal to inspection, nondistended, normoactive bowel sounds, soft to palpation,non-tender, non-distended and no masses Back/Spine normal to inspection; Negative for no thoracic nor lumbar tenderness General Back: Negative for CVA tenderness Cervical Spine: Negative for cervical spine tenderness Thoracic Spine / Upper Back: paraspinal muscle tenderness left T7, T8 and T9 Lumbar Spine / Lower Back: Negative for ROM limited Extremity normal to inspection and no clubbing, cyanosis or edema Neuro oriented x3 and no sensory deficits noted Sensorium / Orientation: alert Psych mental status grossly normal Skin no rashes or lesions noted and no wounds General Skin Exam: Negative for jaundice or pallor MDM MDM MDM Narrative Medical decision making narrative: Aced on patient's history and physical this is muscular pain. It is not consistent with radicular pain. We will treat with oral analgesia and reassess in 30 to 60 minutes. Apparently an EKG was put in per protocol. The EKG is normal. Rate is 61. MD interval 168 ms. QRS duration 78 ms. QT duration 472 ms. [place] is normal. Treatment and Re-Evaluation Narrative: Patient was reassessed at 1747. She reports improvement. She is talking to a relative on the phone. She is moving without any grimacing. She was instructedto apply ice and take her hydrocodone that was prescribed by her doctor for her pain. Discharge Plan Triage Chief Complaint: Back ED Provider: Federico Arango Dx/Rx/DC Orders Clinical Impression: Acute left-sided thoracic back pain Instructions: ED Back Pain (Acute or Chronic) Prescriptions: No Action paroxetine HCl [Paxil] 40 MG tablet 40 mg PO DAILY trazodone 50 MG tablet 100 mg PO QHS esomeprazole magnesium [Nexium] 40 MG capsule 40 mg PO BID lorazepam 1 MG tablet 2 mg PO BID cholecalciferol (vitamin D3) 50,000 UNIT capsule 50,000 units PO KEITA Patient Comments: takes q monday Rx Instructions: takes on monday albuterol sulfate 1 INHALER inhaler 1 - 2 puff INHALATION Q6H PRN PRN (Reason: Asthma) Qty: 1 0RF hydrocodone-acetaminophen [[place]] 1 EACH tablet 1 ea PO TID PRN (Reason: Pain) levothyroxine 50 MCG tablet 50 mcg PO DAILY Pulmicort Flexhaler 1 PUFF inhaler 2 puff inhalation BID Patient Comments: inhale 2 puffs twice daily losartan 50 MG tablet 50 mg PO DAILY montelukast 10 MG tablet 10 mg PO DAILY albuterol sulfate [Ventolin HFA] 90 mcg/actuation HFA aerosol inhaler 1 - 2 puff inhalation Q4H PRN PRN (Reason: Wheezing) Qty: 8.5 0RF atorvastatin 40 mg Tablet 40 mg PO QHS pantoprazole 40 mg tablet,delayed release (DR/EC) 40 mg PO DAILY Patient Comments: TAKE 1 TABLET BY MOUTH ONCE DAILY azelastine 137 mcg (0.1 %) aerosol,spray 2 spray intranasal BID Rx Instructions: administer into each nostril cephalexin [cephalexin] 500 mg capsule 500 mg PO Q6 Qty: 20 0RF meclizine [meclizine] 25 mg tablet 25 mg PO 4X/DAY PRN PRN (Reason: Dizziness) Qty: 20 0RF Primary Care Provider: Olivia Gates Referrals: Olivia Gates DO [Primary Care Provider] - 3-5 Days if not improving Activity Restrictions/Additional Instructions: 1. Apply ice 6-10 times a day 2. Take the hydrocodone and acetaminophen tablets were prescribed by your doctor for the pain for the next couple of days. Disposition Disposition: Home, Self Care What to do if you have Problems For any increased pain, shortness of breath, bleeding, nausea or vomiting, chestpain, or any unexpected problems, contact your Primary Care Provider. Call [facility] ([phone]) or report to the closest Emergency Room. Call 911 if necessary. 11/07/22 1750 <Electronically signed by Federico Arango MD> Cosigner Signature (if applicable): CC: Dr. Olivia Gates DO ~ Signed [facility] Work Phone: [phone]) [phone] Hospital Discharge instructions Additional Instructions 1. Apply ice 6-10 times a day 2. Take the hydrocodone and acetaminophen tablets were prescribed by your doctor for the pain for the next couple of days.[facility] Work Phone: Evaluation noteNo assessment information available [facility] Work Phone: Evaluation note* Diagnosis Onset Date Resolution Status Chest pain acute HTN (hypertension) chronic Hypothyroidism chronic [facility] Work Phone: Evaluation note* Diagnosis Onset Date Resolution Status Atypical chest pain acute Chest pain acute HTN (hypertension) chronic Hypothyroidism chronic [facility] Work Phone: Hospital Discharge instructions Additional Instructions DVT study negative. Knee x-ray notes arthritic changes. Continue your home hydrocodone. Follow-up with your doctor.[facility] Work Phone: Hospital Discharge instructions Additional Instructions Please make sure you are drinking plenty of fluids. Your work-up today was largely normal. I suspect you likely have some vertigo as a cause of your dizziness. You been prescribed meclizine to help with this. Take your [place] that you have at home as needed for pain. You have been given referral for a spine doctor to follow-up with for your neck. Please follow-up as we discussed with your primary care doctor.[facility] Work Phone: Hospital Discharge instructions Additional Instructions Please follow-up outpatient.[facility] Work Phone: Hospital Discharge instructionsAmbulatory Orders* PT Referral Location: None [facility] Work Phone: Chief Complaint and Reason for Visit Chief Complaint SORE THROAT DIZZY SCREENING.OSTEO Chief Complaint CHEST PAIN HYPERTENS ION Reason for Visit Chest pain HTN (hypertension) Hypothyroidism Chief Complaint CHEST PAIN CHEST PAIN CHEST PAIN Reason for Visit Atypical chest pain Chest pain HTN (hypertension) Hypothyroidism Chief Complaint LOWER EXTREMITY Chief Complaint LOWER EXTREMITY HYPERTENSION Chief Complaint back pain Chief Complaint back pain Dizziness Chief Complaint Dizziness ABD PAIN Chief Complaint Dizziness ABD PAIN Spinal stenosis, lumbar region without neurogenic SCREEN Chief Complaint ABD PAIN Spinal stenosis, lumbar region without neurogenic SCREEN SCREEN Chief Complaint ABD PAIN Spinal stenosis, lumbar region without neurogenic SCREEN SCREEN SOB Chief Complaint Admit Date SHOULDER PAIN May 18, 2024 1 :36pm RIGHT SHOULDER May 30, 2024 1:18pm RT SHOULDER PAIN AFTER FALL June 26, 2024 4:11pm Reason for Visit Admit Date Right rib fracture May 30, 2024 1:18pm Right shoulder pain May 30, 2024 1:18pm Chief Complaint Admit Date SHOULDER PAIN May 18, 2024 1 :36pm RIGHT SHOULDER May 30, 2024 1:18pm RT SHOULDER PAIN AFTER FALL June 26, 2024 4:11pm RIGHT SHOULDER July 05, 2024 9:4 3am Reason for Visit Admit Date Right rib fracture May 30, 2024 1:18pm Right shoulder pain May 30, 2024 1:18pm Arthrosis of right acromioclavicular donald nt July 05, 2024 9:43am Primary osteoarthritis, right shoulder M arch 2024 9:43am Right rotator cuff tear July 05, 2024 9:43am Right shoulder pain July 05, 2024 9:4 3am Chief Complaint Admit Date SHOULDER PAIN May 18, 2024 1 :36pm RIGHT SHOULDER May 30, 2024 1:18pm RT SHOULDER PAIN AFTER FALL June 26, 2024 4:11pm RIGHT SHOULDER July 05, 2024 9:4 3am Right shoulder Arthroscopy, subacromial decompress August 21, 2024 8:54am Right shoulder Arthroscopy, subacromial decompress August 21, 2024 3:46pm Right shoulder Arthroscopy, subacromial decompress August 21, 2024 4:10pm Right shoulder Arthroscopy, subacromial decompress August 22, 2024 11:05am Reason for Visit Admit Date Right rib fracture May 30, 2024 1:18pm Right shoulder pain May 30, 2024 1:18pm Arthrosis of right acromioclavicular donald nt July 05, 2024 9:43am Primary osteoarthritis, right shoulder M 2024 9:43am Right rotator cuff tear July 05, 2024 9:43am Right shoulder pain July 05, 2024 9:4 3am Arthrosis of right acromioclavicular donald nt August 21, 2024 3:46pm Primary osteoarthritis, right shoulder M 2024 3:46pm Right rotator cuff tear August 21, 2024 3 :46pm Right shoulder pain August 21, 2024 3:46p m Chief Complaint Admit Date SHOULDER PAIN May 18, 2024 1 :36pm RIGHT SHOULDER May 30, 2024 1:18pm RT SHOULDER PAIN AFTER FALL June 26, 2024 4:11pm RIGHT SHOULDER July 05, 2024 9:4 3am PREOP August 20, 2024 1:40p m Right shoulder Arthroscopy, subacromial decompress August 21, 2024 8:54am Right shoulder Arthroscopy, subacromial decompress August 21, 2024 3:46pm Right shoulder Arthroscopy, subacromial decompress August 21, 2024 4:10pm Right shoulder Arthroscopy, subacromial decompress August 22, 2024 11:05am right shoulder September 03, 2024 10:08 am Reason for Visit Admit Date Right rib fracture May 30, 2024 1:18pm Right shoulder pain May 30, 2024 1:18pm Arthrosis of right acromioclavicular donald nt July 05, 2024 9:43am Primary osteoarthritis, right shoulder M arch 2024 9:43am Right rotator cuff tear July 05, 2024 9:43am Right shoulder pain July 05, 2024 9:4 3am Arthrosis of right acromioclavicular donald nt August 21, 2024 3:46pm Primary osteoarthritis, right shoulder M ay 2024 3:46pm Right rotator cuff tear August 21, 2024 3 :46pm Right shoulder pain August 21, 2024 3:46p m Arthrosis of right acromioclavicular donald nt September 03, 2024 10:08am Primary osteoarthritis, right shoulder M ay 2024 10:08am Right rotator cuff tear September 03, 2024 1 0:08am Right shoulder pain September 03, 2024 10:08 am Chief Complaint Admit Date RT SHOULDER PAIN AFTER FALL June 26, 2024 4:11pm RIGHT SHOULDER July 05, 2024 9:4 3am PREOP August 20, 2024 1:40p m Right shoulder Arthroscopy, subacromial decompress August 21, 2024 8:54am Right shoulder Arthroscopy, subacromial decompress August 21, 2024 3:46pm Right shoulder Arthroscopy, subacromial decompress August 21, 2024 4:10pm Right shoulder Arthroscopy, subacromial decompress August 22, 2024 11:05am right shoulder September 03, 2024 10:08 am RIGHT SHOULDER October 01, 2024 11:0 3am Reason for Visit Admit Date Arthrosis of right acromioclavicular donald nt July 05, 2024 9:43am Primary osteoarthritis, right shoulder M arch 2024 9:43am Right rotator cuff tear July 05, 2024 9:43am Right shoulder pain July 05, 2024 9:4 3am Arthrosis of right acromioclavicular donald nt August 21, 2024 3:46pm Primary osteoarthritis, right shoulder M ay 2024 3:46pm Right rotator cuff tear August 21, 2024 3 :46pm Right shoulder pain August 21, 2024 3:46p m Arthrosis of right acromioclavicular donald nt September 03, 2024 10:08am Primary osteoarthritis, right shoulder M ay 2024 10:08am Right rotator cuff tear September 03, 2024 1 0:08am Right shoulder pain September 03, 2024 10:08 am Arthrosis of right acromioclavicular donald nt October 01, 2024 11:03am Primary osteoarthritis, right shoulder J une 2024 11:03am Right rotator cuff tear October 01, 2024 11:03am Right shoulder pain October 01, 2024 11:0 3am Chief Complaint Admit Date RIGHT SHOULDER July 05, 2024 9:4 3am PREOP August 20, 2024 1:40p m Right shoulder Arthroscopy, subacromial decompress August 21, 2024 8:54am Right shoulder Arthroscopy, subacromial decompress August 21, 2024 3:46pm Right shoulder Arthroscopy, subacromial decompress August 21, 2024 4:10pm Right shoulder Arthroscopy, subacromial decompress August 22, 2024 11:05am right shoulder September 03, 2024 10:08 am RIGHT SHOULDER October 01, 2024 11:0 3am RIGHT SHOULDER October 28, 2024 11:1 5am Reason for Visit Admit Date Arthrosis of right acromioclavicular donald nt July 05, 2024 9:43am Primary osteoarthritis, right shoulder M arch 2024 9:43am Right rotator cuff tear July 05, 2024 9:43am Right shoulder pain July 05, 2024 9:4 3am Arthrosis of right acromioclavicular donald nt August 21, 2024 3:46pm Primary osteoarthritis, right shoulder M ay 2024 3:46pm Right rotator cuff tear August 21, 2024 3 :46pm Right shoulder pain August 21, 2024 3:46p m Arthrosis of right acromioclavicular donald nt September 03, 2024 10:08am Primary osteoarthritis, right shoulder M ay 2024 10:08am Right rotator cuff tear September 03, 2024 1 0:08am Right shoulder pain September 03, 2024 10:08 am Arthrosis of right acromioclavicular donald nt October 01, 2024 11:03am Primary osteoarthritis, right shoulder J une 2024 11:03am Right rotator cuff tear October 01, 2024 11:03am Right shoulder pain October 01, 2024 11:0 3am Arthrosis of right acromioclavicular donald nt October 28, 2024 11:15am Primary osteoarthritis, right shoulder J olivia 2024 11:15am Right rotator cuff tear October 28, 2024 11:15am Right shoulder pain October 28, 2024 11:1 5am Chief Complaint Admit Date PREOP August 20, 2024 1:40p m Right shoulder Arthroscopy, subacromial decompress August 21, 2024 8:54am Right shoulder Arthroscopy, subacromial decompress August 21, 2024 3:46pm Right shoulder Arthroscopy, subacromial decompress August 21, 2024 4:10pm Right shoulder Arthroscopy, subacromial decompress August 22, 2024 11:05am right shoulder September 03, 2024 10:08 am RIGHT SHOULDER October 01, 2024 11:0 3am RIGHT SHOULDER October 28, 2024 11:1 5am RIGHT SHOULDER November 19, 2024 10 :45am Reason for Visit Admit Date Arthrosis of right acromioclavicular donald nt August 21, 2024 3:46pm Primary osteoarthritis, right shoulder M ay 2024 3:46pm Right rotator cuff tear August 21, 2024 3 :46pm Right shoulder pain August 21, 2024 3:46p m Arthrosis of right acromioclavicular donald nt September 03, 2024 10:08am Primary osteoarthritis, right shoulder M ay 2024 10:08am Right rotator cuff tear September 03, 2024 1 0:08am Right shoulder pain September 03, 2024 10:08 am Arthrosis of right acromioclavicular donald nt October 01, 2024 11:03am Primary osteoarthritis, right shoulder J une 2024 11:03am Right rotator cuff tear October 01, 2024 11:03am Right shoulder pain October 01, 2024 11:0 3am Arthrosis of right acromioclavicular donald nt Linda 21st, 2025 11:15am Primary osteoarthritis, right shoulder J olivia 2024 11:15am Right rotator cuff tear October 28, 2024 11:15am Right shoulder pain October 28, 2024 11:1 5am Arthrosis of right acromioclavicular donald nt November 19, 2024 10:45am Primary osteoarthritis, right shoulder A ugust 2024 10:45am Right rotator cuff tear November 19 10:45am Family History No Family History Records Found Relationship Condition Age at Onset Recorded Date/T matthew father Malignant neoplasm Unknown mother Malignant neoplasm Unknown sister Malignant neoplasm Unknown brother Malignant neoplasm Unknown Advance Directives No Advanced Directives Records Found Advance Directive Response Recorded Date/ Time Advance Directives No May 18, 2015 9:17am Living Will No May 22 022 3:20pm Power of Line Locator No May 22, 2021 3:20pm Advance Directive Response Recorded Date/ Time Advance Directives No May 18, 2015 9:17am Living Will No December 22, 2021 2:24pm Power of Line Locator No December 2:24pm Advance Directive Response Recorded Date/ Time Advance Directives No May 18, 2015 9:17am Living Will No December 22, 2021 7:02pm Power of Line Locator No December 7:02pm Advance Directive Response Recorded Date/ Time Advance Directives No May 18, 2015 8:17am Living Will No May 06 4:01pm Power of Line Locator No May 06, 2022 4:01pm Advance Directive Response Recorded Date/ Time Advance Directives No May 18, 2015 8:17am Living Will No June 10, 2022 12:29pm Power of Line Locator No June 10 12:29pm Advance Directive Response Recorded Date/ Time Advance Directives No May 18, 2015 9:17am Living Will No November 07, 2022 5:56pm Power of Line Locator No November 07 5:56pm Advance Directive Response Recorded Date/ Time Advance Directives No May 18, 2015 8:17am Living Will No February 24, 2 023 9:20am Power of Line Locator No February 24, 2023 9:20am Advance Directive Response Recorded Date/ Time Advance Directives No May 18, 2015 9:17am Living Will No November 17th, 2 023 10:20am Power of Line Locator No February 24, 2023 10:20am Advance Directive Response Recorded Date/ Time Advance Directives No May 18, 2015 9:17am Living Will No August 21, 2023 7 :10pm Power of Line Locator No August 21, 2023 7:10pm Advance Directive Response Recorded Date/ Time Living Will No May 18 4:23pm Do you have a Healthcare Power of Line Locator? No May 18, 2024 4:23pm Advance Directives No May 18, 2015 9:17am Advance Directive Response Recorded Date/ Time Living Will No May 18 4:23pm Do you have a Healthcare Power of Line Locator? No May 18, 2024 4:23pm Do you have a Healthcare Power of Line Locator? No August 21, 2024 4:30pm Advance Directives No May 18, 2015 9:17am Advance Directive Response Recorded Date/ Time Do you have a Healthcare Power of Line Locator? No August 21, 2024 4:30pm Advance Directives No May 18, 2015 9:17am Summary Purpose Additional Source Comments Goals (unrecognized section and content) Goals may be documented in a n alternate sectionGoals may be documented in an alternate sectionGoals may be documented in an alternate sectionGoals may be documented in an alternate sectionGoals may be documented in an alternate sectionGoals may be documented in an alternate sectionGoals may be documented in an alternate sectionGoals may be documented in an alternate sectionGoals may be documented in an alternate sectionGoals may be documented in an alternate sectionGoals may be documented in an alternate sectionGoals may be documented in an alternate sectionGoals may be documented in an alternate sectionGoals may be documented in an alternate sectionGoals may be documented in an alternate section Care Teams (unrecognized sec tion and content) Team Status: Active Member Role Status Dates Dr. Olivia Gates , DO Family Provider Active Dr. Olivia Gates , DO Primary Care Provider Active Team Status: Inactive Member Role Status Dates Dr. Olivia Gates , DO Primary Care Provider Active Dr. Diego Weaver , DO Emergency Provider Active Team Status: Active Member Role Status Dates Dr. Olivia Gates , DO Primary Care Provider Active Dr. Nikolay Gray MD Attending Provider Active Team Status: Inactive Member Role Status Dates Dr. Olivia Gaets , DO Primary Care Provider Active Dr. Diego Weaver DO Attending Provider, Emergency Provide r Active Team Status: Inactive Member Role Status Dates Dr. Olivia Gates DO Primary Care Provider Active Dr. Nikolay Abdalla DO Emergency Provider Active Team Status: Active Member Role Status Dates Dr. Olivia Gates DO Primary Care Provider Active Dr. Nikolay Gray MD Attending Provider Active Dr. Diego Weaver DO Referring Provider Active Team Status: Inactive Member Role Status Dates Dr. Olivia Gates DO Primary Care Provider, Attending P rovider Active Team Status: Inactive Member Role Status Dates Dr. Olivia Gates DO Primary Care Provider Active Dr. Federico Arango MD Emergency Provider Active Team Status: Inactive Member Role Status Dates Dr. Olivia Gates DO Primary Care Provider Active Dr. Federico Arango MD Attending Provider, Emergency Provi devonte Active Team Status: Inactive Member Role Status Dates Dr. Olivia Gates DO Primary Care Provider Active Dr. Lisa Villagran DO Emergency Provider Active Team Status: Inactive Member Role Status Dates Dr. Olivia Gates DO Primary Care Provider Active Dr. Lisa Villagran , DO Attending Provider, Emergency P rovider Active Team Status: Active Member Role Status Dates Dr. Olivia Gates DO Primary Care Provide r, Attending Provider, Referring Provider Active Team Status: Inactive Member Role Status Dates Dr. Olivia Gates DO Primary Care Provide r, Attending Provider, Referring Provider Active Team Status: Active Member Role Status Dates Dr. Olivia Gates DO Primary Care Provider, Other Provi devonte Active Dr. Sj Oscar MD Attending Provider Active Team Status: Inactive Member Role Status Dates Dr. Olivia Gates DO Primary Care Provider Active Dr. Gumaro Palencia DO Attending Provider, Referring P rovider Active Team Status: Active Member Role Status Dates Dr. Olivia Gates DO Primary Care Provider, Other Provi devonte Active Dr. Sj Oscar MD Attending Provider Active Dr. Gumaro Palencia DO Referring Provider Active Team Status: Inactive Member Role Status Dates Dr. Olivia Gates DO Primary Care Provider Active Gunnar Ocampo MD Emergency Provider Active Team Status: Active Member Role Status Dates Dr. Olivia Gates DO Primary Care Provider Active Team Status: Inactive Member Role Status Dates Dr. Olivia Gates DO Primary Care Provider Active Start: May 18, 2024 End: May 18, 2024 Dr. Federico Arango MD Attending Provider Active Sta rt: May 18, 2024 End: May 18, 2024 Dr. Federico Arango MD Emergency Provider Active Sta rt: May 18, 2024 End: May 18, 2024 Team Status: Inactive Member Role Status Dates Dr. Olivia Gates DO Primary Care Provider Active Start: May 30, 2024 End: May 30, 2024 Dr. Olivia Gates DO Referring Provider Active St art: May 30, 2024 End: May 30, 2024 Macario Llanos MD Attending Provider Active St art: May 30, 2024 End: May 30, 2024 Team Status: Inactive Member Role Status Dates Dr. Olivia Gates DO Primary Care Provider Active Start: June 26, 2024 End: June 26, 2024 Macario Llanos MD Attending Provider Active St art: June 26, 2024 End: June 26, 2024 Macario Llanos MD Referring Provider Active St art: June 26, 2024 End: June 26, 2024 Team Status: Inactive Member Role Status Dates Dr. Olivia Gates DO Primary Care Provider Active Start: July 05, 2024 End: July 05, 2024 Dr. Olivia Gates DO Referring Provider Active St art: July 05, 2024 End: July 05, 2024 Macario Llanos MD Attending Provider Active St art: July 05, 2024 End: July 05, 2024 Team Status: Inactive Member Role Status Dates Dr. Olivia Gates DO Primary Care Provider Active Start: August 13, 2024 End: August 13, 2024 Dr. Olivia Gates DO Attending Provider Active St art: August 13, 2024 End: August 13, 2024 Dr. Olivia Gates DO Referring Provider Active St art: August 13, 2024 End: August 13, 2024 Team Status: Active Member Role Status Dates Dr. Olivia Gates DO Primary Care Provider Active Start: August 20, 2024 Dr. Olivia Gates DO Attending Provider Active St art: August 20, 2024 Dr. Olivia Gates DO Referring Provider Active St art: August 20, 2024 Team Status: Active Member Role Status Dates Dr. Olivia Gates DO Primary Care Provider Active Start: August 21, 2024 Macario Llanos MD Attending Provider Active St art: August 21, 2024 Macario Llanos MD Referring Provider Active St art: August 21, 2024 Macario Llanos MD Other Provider Active Start: August 21, 2024 Team Status: Inactive Member Role Status Dates Dr. Olivia Gates DO Primary Care Provider Active Start: August 21, 2024 End: August 22, 2024 Macario Llanos MD Admit Provider Active Start: August 21, 2024 End: August 22, 2024 Macario Llanos MD Attending Provider Active St art: August 21, 2024 End: August 22, 2024 Macario Llanos MD Referring Provider Active St art: August 21, 2024 End: August 22, 2024 Dr. Leana Vaca MD Other Provider Active St art: August 21, 2024 End: August 22, 2024 Dr. Chaz Ortiz , DO Other Provider Active S tart: August 21, 2024 End: August 22, 2024 Team Status: Active Member Role Status Dates Dr. Olivia Gates DO Primary Care Provider Active Start: August 21, 2024 Macario Llanos MD Admit Provider Active Start: August 21, 2024 Macario Llanos MD Referring Provider Active St art: August 21, 2024 Macario Llanos MD Other Provider Active Start: August 21, 2024 Dr. Leana Vaca MD Attending Provider Active Start: August 21, 2024 Dr. Leana Vaca MD Other Provider Active St art: August 21, 2024 Team Status: Active Member Role Status Dates Dr. Olivia Gates DO Primary Care Provider Active Start: August 22, 2024 Macario Llanos MD Admit Provider Active Start: August 22, 2024 Macario Llanos MD Attending Provider Active St art: August 22, 2024 Macario Llanos MD Referring Provider Active St art: August 22, 2024 Macario Llanos MD Other Provider Active Start: August 22, 2024 Dr. Leana Vaca MD Other Provider Active St art: August 22, 2024 Dr. Chaz Ortiz , Other Provider Active S tart: August 22, 2024 Team Status: Inactive Member Role Status Dates Dr. Olivia Gates DO Primary Care Provider Active Start: August 20, 2024 End: August 20, 2024 Dr. Olivia Gates DO Attending Provider Active St art: August 20, 2024 End: August 20, 2024 Dr. Olivia Gates DO Referring Provider Active St art: August 20, 2024 End: August 20, 2024 Team Status: Active Member Role Status Dates Dr. Olivia Gates DO Primary Care Provider Active Start: August 20, 2024 End: August 20, 2024 Dr. Mino Gomez MD Attending Provider Active Start: August 20, 2024 End: August 20, 2024 Macario Llanos MD Referring Provider Active St art: August 20, 2024 End: August 20, 2024 Team Status: Inactive Member Role Status Dates Dr. Olivia Gates DO Primary Care Provider Active Start: September 03, 2024 End: September 03, 2024 Dr. Olivia Gates DO Referring Provider Active St art: September 03, 2024 End: September 03, 2024 Macario Llanos MD Attending Provider Active St art: September 03, 2024 End: September 03, 2024 Team Status: Inactive Member Role Status Dates Dr. Olivia Gates DO Primary Care Provider Active Start: October 01, 2024 End: October 01, 2024 Dr. Olivia Gates DO Referring Provider Active St art: October 01, 2024 End: October 01, 2024 Macario Llanos MD Attending Provider Active St art: October 01, 2024 End: October 01, 2024 Team Status: Active Member Role/Relationship Status Dates Dr. Olivia Gates DO Primary Care Provider Active Team Status: Inactive Member Role/Relationship Status Dates Dr. Olivia Gates DO Primary Care Provider Active Start: July 05, 2024 End: July 05, 2024 Dr. Olivia Gates DO Referring Provider Active St art: July 05, 2024 End: July 05, 2024 Macario Llanos MD Attending Provider Active St art: July 05, 2024 End: July 05, 2024 Team Status: Inactive Member Role/Relationship Status Dates Dr. Olivia Gates DO Primary Care Provider Active Start: August 13, 2024 End: August 13, 2024 Dr. Olivia Gates DO Attending Provider Active St art: August 13, 2024 End: August 13, 2024 Dr. Olivia Gates DO Referring Provider Active St art: August 13, 2024 End: August 13, 2024 Team Status: Active Member Role/Relationship Status Dates Dr. Olivia Gates DO Primary Care Provider Active Start: August 20, 2024 End: August 20, 2024 Dr. Mino Gomez MD Attending Provider Active Start: August 20, 2024 End: August 20, 2024 Macario Llanos MD Referring Provider Active St art: August 20, 2024 End: August 20, 2024 Team Status: Inactive Member Role/Relationship Status Dates Dr. Olivia Gates DO Primary Care Provider Active Start: August 20, 2024 End: August 20, 2024 Dr. Olivia Gates DO Attending Provider Active St art: August 20, 2024 End: August 20, 2024 Dr. Olivia Gates DO Referring Provider Active St art: August 20, 2024 End: August 20, 2024 Team Status: Active Member Role/Relationship Status Dates Dr. Olivia Gates DO Primary Care Provider Active Start: August 21, 2024 Macario Llanos MD Attending Provider Active St art: August 21, 2024 Macario Llanos MD Referring Provider Active St art: August 21, 2024 Macario Llanos MD Other Provider Active Start: August 21, 2024 Team Status: Inactive Member Role/Relationship Status Dates Dr. Olivia Gates DO Primary Care Provider Active Start: August 21, 2024 End: August 22, 2024 Macario Llanos MD Admit Provider Active Start: August 21, 2024 End: August 22, 2024 Macario Llanos MD Attending Provider Active St art: August 21, 2024 End: August 22, 2024 Macario Llanos MD Referring Provider Active St art: August 21, 2024 End: August 22, 2024 Dr. Leana Vaca MD Other Provider Active St art: August 21, 2024 End: August 22, 2024 Dr. Chaz Ortiz DO Other Provider Active S tart: August 21, 2024 End: August 22, 2024 Team Status: Active Member Role/Relationship Status Dates Dr. Olivia Gates DO Primary Care Provider Active Start: August 21, 2024 Macario Llanos MD Admit Provider Active Start: August 21, 2024 Macario Llanos MD Referring Provider Active St art: August 21, 2024 Macario Llanos MD Other Provider Active Start: August 21, 2024 Dr. Leana Vaca MD Attending Provider Active Start: August 21, 2024 Dr. Leana Vaca MD Other Provider Active St art: August 21, 2024 Team Status: Active Member Role/Relationship Status Dates Dr. Olivia Gates DO Primary Care Provider Active Start: August 22, 2024 Macario Llanos MD Admit Provider Active Start: August 22, 2024 Macario Llanos MD Attending Provider Active St art: August 22, 2024 Macario Llanos MD Referring Provider Active St art: August 22, 2024 Macario Llanos MD Other Provider Active Start: August 22, 2024 Dr. Leana Vaca MD Other Provider Active St art: August 22, 2024 Dr. Chaz Ortiz , Other Provider Active S tart: August 22, 2024 Team Status: Inactive Member Role/Relationship Status Dates Dr. Olivia Gates DO Primary Care Provider Active Start: September 03, 2024 End: September 03, 2024 Dr. Olivia Gates DO Referring Provider Active St art: September 03, 2024 End: September 03, 2024 Macario Llanos MD Attending Provider Active St art: September 03, 2024 End: September 03, 2024 Team Status: Inactive Member Role/Relationship Status Dates Dr. Olivia Gates DO Primary Care Provider Active Start: October 01, 2024 End: October 01, 2024 Dr. Olivia Gates DO Referring Provider Active St art: October 01, 2024 End: October 01, 2024 Macario Llanos MD Attending Provider Active St art: October 01, 2024 End: October 01, 2024 Team Status: Inactive Member Role/Relationship Status Dates Dr. Olivia Gates DO Primary Care Provider Active Start: October 28, 2024 End: October 28, 2024 Dr. Olivia Gates DO Referring Provider Active St art: October 28, 2024 End: October 28, 2024 Macario Llanos MD Attending Provider Active St art: October 28, 2024 End: October 28, 2024 Team Status: Inactive Member Role/Relationship Status Dates Dr. Olivia Gatse DO Primary Care Provider Active Start: August 13, 2024 End: August 13, 2024 Dr. Olivia Gates DO Attending Provider Active St art: August 13, 2024 End: August 13, 2024 Dr. Olivia Gates DO Referring Provider Active St art: August 13, 2024 End: August 13, 2024 Team Status: Active Member Role/Relationship Status Dates Dr. Olivia Gates DO Primary Care Provider Active Start: August 20, 2024 End: August 20, 2024 Dr. Mino Gomez MD Attending Provider Active Start: August 20, 2024 End: August 20, 2024 Macario Llanos MD Referring Provider Active St art: August 20, 2024 End: August 20, 2024 Team Status: Inactive Member Role/Relationship Status Dates Dr. Olivia Gaets DO Primary Care Provider Active Start: August 20, 2024 End: August 20, 2024 Dr. Olivia Gates DO Attending Provider Active St art: August 20, 2024 End: August 20, 2024 Dr. Olivia Gates DO Referring Provider Active St art: August 20, 2024 End: August 20, 2024 Team Status: Active Member Role/Relationship Status Dates Dr. Olivia Gates DO Primary Care Provider Active Start: August 21, 2024 Macario Llanos MD Attending Provider Active St art: August 21, 2024 Macario Llanos MD Referring Provider Active St art: August 21, 2024 Macario Llanos MD Other Provider Active Start: August 21, 2024 Team Status: Inactive Member Role/Relationship Status Dates Dr. Olivia Gates DO Primary Care Provider Active Start: August 21, 2024 End: August 22, 2024 Macario Llanos MD Admit Provider Active Start: August 21, 2024 End: August 22, 2024 Macario Llanos MD Attending Provider Active St art: August 21, 2024 End: August 22, 2024 Macario Llanos MD Referring Provider Active St art: August 21, 2024 End: August 22, 2024 Dr. Leana Vaca MD Other Provider Active St art: August 21, 2024 End: August 22, 2024 Dr. Chaz Ortiz , DO Other Provider Active S tart: August 21, 2024 End: August 22, 2024 Team Status: Active Member Role/Relationship Status Dates Dr. Olivia Gates DO Primary Care Provider Active Start: August 21, 2024 Macario Llanos MD Admit Provider Active Start: August 21, 2024 Macario Llanos MD Referring Provider Active St art: August 21, 2024 Macario Llanos MD Other Provider Active Start: August 21, 2024 Dr. Leana Vaca MD Attending Provider Active Start: August 21, 2024 Dr. Leana Vaca MD Other Provider Active St art: August 21, 2024 Team Status: Active Member Role/Relationship Status Dates Dr. Olivia Gates DO Primary Care Provider Active Start: August 22, 2024 Macario Llanos MD Admit Provider Active Start: August 22, 2024 Macario Llanos MD Attending Provider Active St art: August 22, 2024 Macario Llanos MD Referring Provider Active St art: August 22, 2024 Macario Llanos MD Other Provider Active Start: August 22, 2024 Dr. Leana Vaca MD Other Provider Active St art: August 22, 2024 Dr. Chaz Ortiz , Other Provider Active S tart: August 22, 2024 Team Status: Inactive Member Role/Relationship Status Dates Dr. Olivia Gates DO Primary Care Provider Active Start: September 03, 2024 End: September 03, 2024 Dr. Olivia Gates DO Referring Provider Active St art: September 03, 2024 End: September 03, 2024 Macario Llanos MD Attending Provider Active St art: September 03, 2024 End: September 03, 2024 Team Status: Inactive Member Role/Relationship Status Dates Dr. Oilvia Gates DO Primary Care Provider Active Start: October 01, 2024 End: October 01, 2024 Dr. Olivia Gates DO Referring Provider Active St art: October 01, 2024 End: October 01, 2024 Macario Llanos MD Attending Provider Active St art: October 01, 2024 End: October 01, 2024 Team Status: Inactive Member Role/Relationship Status Dates Dr. Olivia Gates DO Primary Care Provider Active Start: October 28, 2024 End: October 28, 2024 Dr. Olivia Gates DO Referring Provider Active St art: October 28, 2024 End: October 28, 2024 Macario Llanos MD Attending Provider Active St art: October 28, 2024 End: October 28, 2024 Team Status: Inactive Member Role/Relationship Status Dates Dr. Olivia Gates DO Primary Care Provider Active Start: November 19, 2024 End: November 19, 2024 Dr. Olivia Gates DO Referring Provider Active St art: November 19, 2024 End: November 19, 2024 Macario Llanos MD Attending Provider Active St art: November 19, 2024 End: November 19, 2024 INFORMATION SOURCE (unrecogn ized section and content) DATE CREATED AUTHOR 12/25/2024 [facility] FOR RECORDS PERTAINING TO PATIENTS WHO ARE OR HAVE BEEN ENROLLED IN A CHEMICAL DEPENDENCY/SUBSTANCEABUSE PROGRAM, SOME INFORMATION MAY BE OMITTED. This clinical summary was aggregated from multiple sources. Caution should be exercised in using it in the provision of clinical care. This summary normalizes information from multiple sources, and as a consequence, information in this document may materially change the coding, format and clinical context of patient data. In addition, data may be omitted in some cases. CLINICAL DECISIONS SHOULD BE BASED ON THE PRIMARY CLINICAL RECORDS. [facility] [employer] provides no warranty or guarantee of the accuracy or completeness of information in this document.
--- NOTE | 2024-12-28 12:06 | EX.ED.UPPERE ---
HPI History of Present Illness Chief Complaint: Upper Extremity Injury Narrative Narrative: 69-year-old female, [id number], has previous surgery for right rotator cuff tear and osteoarthritis. She relates history that in August she had surgery by Dr. Macario Sandoval, approximately 4 months ago. She has had continuing pain ever since. She states that he did arthroscopic surgery on her in attempt to patch her rotator cuff, but states that she really needs a right shoulder replacement but her insurance has not approved it as of yet. She has chronic pain in her right shoulder for which she takes Vicodin 3 times a day. She called squad today because of intractable right shoulder pain to the point where it is making her whole body tense. She denies any fevers or chills, no new symptoms from her chronic right shoulder pain. [facility] Medical History RAJNI (obstructive sleep apnea) Morbid obesity Allergic rhinitis Asthma Urinary incontinence Anxiety and depression Wears glasses Wears dentures Post-menopausal Ambulates with cane Arthritis History of hiatal hernia Non-smoker Persistent dry cough History of stress test History of echocardiogram Hx of fracture of wrist 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, right shoulder Right rotator cuff tear Pulmonary hypertension GERD (gastroesophageal reflux disease) Hypothyroidism HTN (hypertension) Chronic back pain Home Medications ?Medication ?Instructions ?Recorded ?Last Taken ?Type paroxetine HCl 40 mg tablet (Paxil) 40 mg PO DAILY depression 01/29/13 08/21/24 06:30 History trazodone 50 mg tablet 50 mg PO QHS sleep 01/29/13 12/21/21 History esomeprazole magnesium 40 mg 40 mg PO BID GERD 05/16/14 08/21/24 04:29 History capsule,delayed release (Nexium) lorazepam 1 mg tablet 2 mg PO BID anxiety 10/11/16 08/21/24 06:30 History cholecalciferol (vitamin D3) 1,250 50,000 units PO KEITA Vit D deficiency 05/20/17 12/19/21 History mcg (50,000 unit) capsule budesonide 180 mcg/actuation 2 puff inhalation BID SOB/wheezing 12/13/17 12/21/21 History breath activated powder inhaler (Pulmicort Flexhaler) losartan 50 mg tablet 50 mg PO DAILY blood pressure 07/04/20 08/21/24 06:30 History montelukast 10 mg tablet 10 mg PO DAILY allergies 07/04/20 08/21/24 04:30 History albuterol sulfate 90 mcg/actuation 1 - 2 puff inhalation Q4H PRN PRN 04/13/21 Unknown Rx aerosol inhaler (Ventolin HFA) Wheezing #8.5 grams azelastine 137 mcg (0.1 %) nasal 2 spray intranasal BID PRN 12/22/21 12/21/21 History spray antihistamine albuterol sulfate 2.5 mg/3 mL 2.5 mg inhalation 4X/DAY PRN PRN 08/16/24 Unknown History (0.083 %) solution for nebulization shortness of breath or wheezing levothyroxine 88 mcg tablet 88 mcg PO DAILY 08/16/24 08/21/24 04:30 History Allergy/AdvReac Type Severity Reaction Status Date / Time No Known Allergies Allergy Verified 12/28/24 11:10 Family History Father Cancer Mother Cancer Sister Cancer Brother Cancer Surgical History S/P rotator cuff repair History of esophagogastroduodenoscopy (EGD) Hx of colonoscopy History of back surgery History of cholecystectomy History of hysterectomy History of back surgery History of hernia repair Social History household members: children housing: apartment Smoking Status: Never smoker second hand exposure: No alcohol intake: never substance use type: does not use ROS ROS ED ROS Narrative Review of systems positive for chronic right shoulder pain. No fevers or chills. Pain worse with movement. States pain is making her whole body tense. No relieving symptoms. EXAM Physical Exam Narrative Exam Narrative: Afebrile. Vital signs noted. Nontoxic-appearing. Cardiovascular examination regular rate and rhythm. Lungs clear to auscultation bilaterally. No crepitance of right shoulder. Full range of motion. Neurovasc intact distally with palpable radial pulse. No noted erythema. Const Vital Signs: 12/28/24 11:08 Temperature 98.3 F Temperature Source Oral Pulse Rate 73 Respiratory Rate 19 H Blood Pressure 155/128 H Blood Pressure Mean 137 Pulse Ox 98 Oxygen Delivery Method Room Air MDM MDM MDM Narrative Medical decision making narrative: Differential diagnosis includes but not limited to septic arthritis versus chronic right shoulder pain versus dislocation versus fracture. History and physical does not support the latter 2 diagnoses. I had a camille discussion with the patient regarding her visit to the emergency department today. She states that she would like relief from her chronic pain. She was administered morphine 4 mg intramuscularly. Additionally, I obtained imaging of the right shoulder. On my independent interpretation of her right shoulder x-rays there is no evidence of an acute fracture or dislocation. I reviewed the radiology report which confirms my independent interpretation. At this point in time, I will discuss with her further management of her chronic pain. She should follow-up with Dr. Sandoval with orthopedics. She states she usually takes Vicodin 7.5 mg as written by her primary care provider 3 times a day. I gave her a 5 mg Vicodin here in the emergency department. She may need to follow-up with pain management in the future. I do not feel that she needs further stat imaging of her right shoulder as her pain is chronic. Disposition is discharged home in stable condition. History & Record Review Discussion w/independent historian: Patient Additional record(s) reviewed:: Prior ED visit (Seen for shoulder pain from trauma in May) Radiography Diagnostic Testing: Clinical Impression(s) from Imaging Studies Shoulder X-Ray 12/28/24 11:45 IMPRESSION: No acute osseous abnormalities. Reading Location: [facility] Discharge Plan Triage Chief Complaint: Upper Extremity Injury ED Provider: Gunnar Ocampo Dx/Rx/DC Orders Clinical Impression: Right shoulder pain, Chronic pain Instructions: ED Chronic Pain, ED Shoulder Pain, Uncertain Cause Prescriptions: No Action paroxetine HCl [Paxil] 40 MG tablet 40 mg PO DAILY trazodone 50 MG tablet 50 mg PO QHS esomeprazole magnesium [Nexium] 40 MG capsule 40 mg PO BID lorazepam 1 MG tablet 2 mg PO BID cholecalciferol (vitamin D3) 50,000 UNIT capsule 50,000 units PO KEITA Patient Comments: takes q monday Rx Instructions: takes on monday Pulmicort Flexhaler 1 PUFF inhaler 2 puff inhalation BID Patient Comments: inhale 2 puffs twice daily losartan 50 MG tablet 50 mg PO DAILY montelukast 10 MG tablet 10 mg PO DAILY albuterol sulfate [Ventolin HFA] 90 mcg/actuation HFA aerosol inhaler 1 - 2 puff inhalation Q4H PRN PRN (Reason: Wheezing) Qty: 8.5 0RF azelastine 137 mcg (0.1 %) aerosol,spray 2 spray intranasal BID PRN (Reason: antihistamine) Rx Instructions: administer into each nostril albuterol sulfate 2.5 mg /3 mL (0.083 %) solution for nebulization 2.5 mg inhalation 4X/DAY PRN PRN (Reason: shortness of breath or wheezing) levothyroxine 88 mcg tablet 88 mcg PO DAILY Primary Care Provider: Olivia Gates Referrals: Olivia Gates DO [Primary Care Provider, Family Practice] Macario Sandoval MD [Med Staff - Active Staff, Orthopedics] - As soon as possible Activity Restrictions/Additional Instructions: Follow-up with your primary care provider regarding your pain medication regimen. Follow-up with Dr. Sandoval regarding your shoulder and need for surgery and any additional imaging. Print Language: Romanian Disposition Disposition: Home, Self Care Discharge Date/Time: 12/28/24 13:26
[2024-12-28] MEDS: HYDROcodone Bitartrate/Apap 5/325 Tablet PO (12:44)
[2024-12-28 12:45] VITALS: BP 138/80; PULSE 73; RESP 19; TEMP 36.8; O2SAT 98
== END 2024-12-28 13:26 | disposition home or self-care (01) ==
PROVIDERS: Emergency Provider Emergency Medicine; PCP Family Medicine; Visit Provider Emergency Medicine
DX: M25.511 Pain in right shoulder (principal); G89.29 Other chronic pain; I10 Essential (primary) hypertension; Z79.899 Other long term (current) drug therapy; F41.8 Other specified anxiety disorders; K21.9 Gastro-esophageal reflux disease without esophagitis; J45.909 Unspecified asthma, uncomplicated; Z79.51 Long term (current) use of inhaled steroids; E03.9 Hypothyroidism, unspecified; Z79.890 Hormone replacement therapy; Z90.49 Acquired absence of other specified parts of digestive tract; Z90.710 Acquired absence of both cervix and uterus
CPT/HCPCS: 73030; 96372; 99284

== ENCOUNTER → 2024-12-31 | Outpatient (CLI) | payer MEDICARE, SELFPAY ==
--- NOTE | 2024-12-31 13:30 | CT_ITS ---
PROCEDURE: EXTREMITY UPPER WITHOUT CONTRA 12/31/2024 REASON FOR EXAM: PRE OPERATIVE PLANNING FOR REVERSE TOTAL TECHNIQUE: Procedure Code: CTEUWO Modality: CT Procedure: EXTREMITY UPPER WITHOUT CONTRA Coronal and Sagittal reconstruction series were provided. One or more dose reduction techniques were used (e.g., Automated exposure control, adjustment of the mA and/or kV according to patient size, use of iterative reconstruction technique. RADIATION DOSE SUMMARY: DLP: 1032 mGycm COMPARISON: None FINDINGS: There is moderate osteoarthritis of the glenohumeral articulation with subcortical cyst formation and marginal osteophytes. AC joint is aligned. There is no visible radiopaque foreign body. There is no visible muscular atrophy. There is no visible atherosclerosis. Adjacent lung shows interstitial infiltrate versus fibrosis in the right upper and middle lobe. A 0.5 cm peripheral pulmonary nodule is noted, image 95/156. CT/Extremity Upper without Contra IMPRESSION: ere is moderate osteoarthritis of the glenohumeral articulation with subcortica l cyst formation and marginal osteophytes. Adjacent lung shows interstitial infiltrate versus fibrosis in the right upper and middle lobe. A 0.5 cm peripheral pulmonary nodule is noted, image 95/156. Reading Location: [facility]
== END | disposition home or self-care (01) ==
LOC: CT 13:17
PROVIDERS: PCP Family Medicine; Referring Provider Orthopaedic Surgery Sports Medicine; Visit Provider Orthopaedic Surgery Sports Medicine
DX: M19.011 Primary osteoarthritis, right shoulder (principal)
CPT/HCPCS: 73200

== ENCOUNTER → 2025-01-15 | Outpatient (CLI) | payer MEDICARE, MEDICAID, SELFPAY ==
[2025-01-15 15:09] LABS: Hematocrit 36.9 % (37-47); Hemoglobin 11.6 g/dL (12.0-15.0); Immature Granulocytes Count 0.060 X10^3/uL (0.0-0.0); Mean Corp Hgb Conc 31.4 g/dL (32-36); Mean Corpuscular Volume 79.5 fL (81-99); Mean Platelet Vol. 9.5 fl (6.2-12.0); NRBC Flagged by Analyzer 0 % (0-5); Platelet Count 375 K/mm3 (150-450); RBC Distribution Width CV 16.4 % (11.6-14.6); RBC Distribution Width SD 46.5 fl (35.1-43.9); Red Blood Count 4.64 M/mm3 (4.2-5.4); White Blood Count 10.8 K/mm3 (4.4-11.0)
[2025-01-15 15:53] LABS: Free T3 2.9 pg/mL (2.18-3.98)
[2025-01-15 15:56] LABS: AST(SGOT) 23 U/L (<=31); Alanine Aminotransfer ALT/SGPT 14 U/L (<=34); Albumin, Serum 4.0 g/dL (3.4-4.8); Alkaline Phosphatase 95 U/L (35-104); Anion Gap 11 (5-15); BUN 12 mg/dL (4-19); BUN/Creat Ratio 16.2 RATIO (10-20); Calcium,Total 9.0 mg/dL (7.6-11.0); Carbon Dioxide 24.9 mmol/L (21.0-32.0); Chloride 103 mmol/L (98-108); Globulin 3.1 g/dL (2.2-4.2); Glucose 96 mg/dL (70-99); Potassium 3.5 mmol/L (3.3-5.1)
== END | disposition home or self-care (01) ==
PROVIDERS: PCP Family Medicine; Referring Provider Family Medicine; Visit Provider Family Medicine
DX: E03.9 Hypothyroidism, unspecified (principal); R73.01 Impaired fasting glucose; Z51.81 Encounter for therapeutic drug level monitoring
CPT/HCPCS: 36415; 80053; 83036; 84439; 84443; 84481; 85025

== ENCOUNTER 2025-02-19 12:20 | Emergency (ER) | payer MEDICARE, MEDICAID, SELFPAY ==
[2025-02-19 12:21] VITALS: BP 148/82; PULSE 80; RESP 18; TEMP 36.9; O2SAT 96
[2025-02-19 12:23] VITALS: BMI 46.9
--- NOTE | 2025-02-19 13:20 | EKG12_ITS ---
Test Reason : Blood Pressure : */* mmHG Vent. Rate : 70 BPM Atrial Rate : 70 BPM P-R Int : 164 ms QRS Dur : 74 ms QT Int : 442 ms P-R-T Axes : 27 29 48 degrees QTcB Int : 477 ms Normal sinus rhythm Nonspecific ST abnormality Abnormal ECG When compared with ECG of 20-Aug-2024 13:40, No significant change was found Confirmed by CHING OZUNA, KRISTEN ([id number]), editor magazine HARSHA GUSTAFSON ([id number]) on 02/24/2025 10:58:21 AM Referred By: Confirmed By: KRISTEN FLOWER MD
[2025-02-19 14:13] LABS: Hematocrit 40.1 % (37-47); Hemoglobin 12.4 g/dL (12.0-15.0); Immature Granulocytes Count 0.070 X10^3/uL (0.0-0.0); Mean Corp Hgb Conc 30.9 g/dL (32-36); Mean Corpuscular Volume 78.9 fL (81-99); Mean Platelet Vol. 8.9 fl (6.2-12.0); NRBC Flagged by Analyzer 0 % (0-5); Platelet Count 368 K/mm3 (150-450); RBC Distribution Width CV 15.9 % (11.6-14.6); RBC Distribution Width SD 44.8 fl (35.1-43.9); Red Blood Count 5.08 M/mm3 (4.2-5.4); White Blood Count 12.2 K/mm3 (4.4-11.0)
[2025-02-19 14:20] VITALS: BP 178/84; PULSE 78; RESP 18; O2SAT 98
[2025-02-19 14:48] LABS: Anion Gap 11 (5-15); BUN 15 mg/dL (4-19); BUN/Creat Ratio 19.3 RATIO (10-20); Calcium,Total 9.3 mg/dL (7.6-11.0); Carbon Dioxide 26.3 mmol/L (21.0-32.0); Chloride 102 mmol/L (98-108); Glucose 105 mg/dL (70-99); Potassium 4.3 mmol/L (3.3-5.1)
--- NOTE | 2025-02-19 15:56 | CT_ITS ---
PROCEDURE: BRAIN/HEAD WITHOUT CONTRAST 02/19/2025 REASON FOR EXAM: DIZZINESS TECHNIQUE: Procedure Code: CTBR Modality: CT Procedure: BRAIN/HEAD WITHOUT CONTRAST Coronal and Sagittal reconstruction series were provided. One or more dose reduction techniques were used (e.g., Automated exposure control, adjustment of the mA and/or kV according to patient size, use of iterative reconstruction technique. COMPARISON: CT head 02/24/2023 FINDINGS: There is no extra-axial or intra-axial intracranial hemorrhage. No mass effect or midline shift is seen. Generalized intracranial volume loss and findings compatible with chronic microvascular white matter ischemia. There is normal cannon-white matter differentiation. The posterior fossa is grossly unremarkable. The skull is unremarkable. Visualized paranasal sinuses are clear. The mastoid air cells show normal translucency. CT/Brain/Head without Contrast IMPRESSION: 1. No intracranial hemorrhage. No mass effect or midline shift. 2. Chronic involutional and ischemic gliotic white matter changes. Reading Location: [facility]
[2025-02-19 16:00] VITALS: BP 150/103; PULSE 78; RESP 16; O2SAT 98
--- NOTE | 2025-02-19 16:05 | RAD_ITS ---
PROCEDURE: CHEST 1 VIEW (PORTABLE) 02/19/2025 REASON FOR EXAM: DYSPNEA TECHNIQUE: Frontal view of the chest. COMPARISON: 01/05/2024 FINDINGS: Hardware: None. Heart: Heart size is mildly enlarged. Lungs: Mild pulmonary vascular congestion. No definite pneumothorax or sizable pleural effusion. Bones: Degenerative changes are identified within the thoracic spine. RAD/Chest 1 View (Portable) IMPRESSION: Mild cardiomegaly and mild pulmonary vascular congestion. Reading Location[facility]
[2025-02-19] MEDS: 0.9% Normal Saline (1000mL) 1,000 ML 50 ML IV (16:29)
--- NOTE | 2025-02-19 16:40 | EDS_ITS ---
HPI History of Present Illness Chief Complaint: Hypertension Narrative Narrative: Patient was seen and examined after presenting to ED for feeling lightheaded also feeling weak for several days feels like her blood pressure has been more elevated than usual she has not missed any doses. [facility] Medical History RAJNI (obstructive sleep apnea) Morbid obesity Allergic rhinitis Asthma Urinary incontinence Anxiety and depression Wears glasses Wears dentures Post-menopausal Ambulates with cane Arthritis History of hiatal hernia Non-smoker Persistent dry cough History of stress test History of echocardiogram Hx of fracture of wrist 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, right shoulder Right rotator cuff tear Pulmonary hypertension GERD (gastroesophageal reflux disease) Hypothyroidism HTN (hypertension) Chronic back pain Home Medications Medication Instructions Recorded Last Taken Type paroxetine HCl 40 mg tablet (Paxil) 40 mg PO DAILY dep ression 01/29/13 08/21/24 06:30 History trazodone 50 mg tablet 50 mg PO QHS sleep 01/29/13 12/21/21 History esomeprazole magnesium 40 mg 40 mg PO BID GERD 5 08/21/24 04:29 History capsule,delayed release (Nexium) lorazepam 1 mg tablet 2 mg PO BID anxiety 10/11/16 08/21/24 06:30 History cholecalciferol (vitamin D3) 1,250 50,000 units PO KEITA Vit D deficiency 05/20/17 12/19/21 History mcg (50,000 unit) capsule budesonide 180 mcg/actuation 2 puff inhalation BID SOB /wheezing 12/13/17 12/21/21 History breath activated powder inhaler (Pulmicort Flexhaler) losartan 50 mg tablet 50 mg PO DAILY blood pressur e 07/04/20 08/21/24 06:30 History montelukast 10 mg tablet 10 mg PO DAILY allergies 08/21/24 04:30 History albuterol sulfate 90 mcg/actuation 1 - 2 puff inhalati on Q4H PRN PRN 04/13/21 Unknown Rx aerosol inhaler (Ventolin HFA) Wheezing #8.5 grams azelastine 137 mcg (0.1 %) nasal 2 spray intranasal BI D PRN 12/22/21 12/21/21 History spray antihistamine albuterol sulfate 2.5 mg/3 mL 2.5 mg inhalation 4X/DAY PRN PRN 08/16/24 Unknown History (0.083 %) solution for nebulization shortness of breat h or wheezing levothyroxine 88 mcg tablet 88 mcg PO DAILY 08/16/24 0 08/21/24 04:30 History hydrocodone 7.5 mg-acetaminophen 1 tab PO TID 01/06/25 Unknown History 325 mg tablet furosemide 20 mg tablet (Lasix) 20 mg PO DAILY #5 tabs 02/19/25 Unknown Rx Allergy/AdvReac Type Severity Reaction Status Date / Time No Known Allergies Allergy Verified 02/19/25 12:23 Family History Father Cancer Mother Cancer Sister Cancer Brother Cancer Surgical History S/P rotator cuff repair History of esophagogastroduodenoscopy (EGD) Hx of colonoscopy History of back surgery History of cholecystectomy History of hysterectomy History of back surgery History of hernia repair Social History household members: children housing: apartment Smoking Status: Never smoker second hand exposure: No alcohol intake: never substance use type: does not use ROS ROS ED ROS Narrative Pertinent Positives: Lightheadedness weakness elevated blood pressure shortness of breath Pertinent Negatives: Fevers chills chest pain pressure vision changes numbness 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 Systems reviewed including constitutional, psychiatric, cardiovascular, respiratory, integument, HENT, gastrointestinal. EXAM Physical Exam Narrative Exam Narrative: Patient is afebrile she is oxygenating well on room air she was slightly hypertensive. Normal heart and lung sounds abdomen is soft nontender nondistended although she does have larger body habitus she has intact and equal MSPs in her extremities no lower extremity calf tenderness does have some mild bilateral lower extremity edema. Patient has normal range of motion of her head and neck. Pupils are equal round reactive to light does not appear to be sensitive to light. Const Vital Signs: 02/19/25 12:21 02/19/25 13:20 02/19/25 14:20 Temperature 98.4 F Temperature Source Oral Pulse Rate 80 78 Respiratory Rate 18 18 Respiratory Effort Respiratory Pattern Blood Pressure 148/82 H 178/84 H Blood Pressure Mean 104 115 Pulse Ox 96 98 Oxygen Delivery Method Room Air Room Air Room Air 02/19/25 15:51 02/19/25 16:00 02/19/25 17:57 Temperature Temperature Source Pulse Rate 78 74 Respiratory Rate 16 18 Respiratory Effort Short of Breath Respiratory Pattern Normal Blood Pressure 150/103 H 158/64 H Blood Pressure Mean 118 95 Pulse Ox 98 98 Oxygen Delivery Method Room Air Room Air MDM MDM MDM Narrative Medical decision making narrative: Nursing notes, triage notes, available previous documentation, and vital signs were reviewed. Any discrepancies noted were addressed. Differential Diagnoses: Low suspicion for hypertensive crisis causing endorgan damage will evaluate as far as evidence of pneumonia lower suspicion for that lower suspicion for an intracranial abnormality that is not meningitis Interventions: Lasix Labs Reviewed: Slight leukocytosis 12.2 hemoglobin 12.4 no renal insufficiency troponin was 12 proBNP was only 102. Delta troponin was 14 Imaging Reviewed: Personally reviewed and interpreted by me: Chest x-ray no pneumonia or widened mediastinum or pneumothoraces noted may have some mild cephalization. My review of patient's CT head I do not see any obvious acute abnormalities Official CT of the head without any acute pathology EKG: Normal sinus rhythm rate of 70. I do not see evidence of ACS. No evidence of prolonged QT syndrome. No evidence of AV Block. No short AK intervals, wide QRS, or Delta waves indicative of WPW. No evidence of dagger-like q waves or LVH indicative of Hypertrophic Cardiomyopathy. No evidence of Brugada Syndrome. EKG interpretation is noted and agreed to in the EMR. The interpretation of this patient's EKG contributed directly to the care and management of this patient. Previous Documentation Reviewed: None available or applicable at this time. ED Course: Patient presenting with symptoms as stated above for any significant findings on her labs or imaging we will get the patient up and ambulate her see how she does and plan for discharge. Labs for the most part fairly unremarkable patient had a little bit of vascular congestion we will go ahead and give a dose of Lasix here but I believe ultimately this patient could go home I do not mind providing with a short prescription for couple days worth of Lasix and then follow-up with her primary care especially with her elevated blood pressures. Patient is otherwise stable for discharge. This note was made utilizing voice recognition software. All attempts were made to correct spelling or other errors prior to note completion. However, due to the fast-paced nature of emergency medicine, some errors may still be present. Lab Data Labs: Laboratory Results - last 24 hr 02/19/25 02/19/25 14:00 17:42 WBC 12.2 H RBC 5.08 Hgb 12.4 Hct 40.1 MCV 78.9 L MCH 24.4 L MCHC 30.9 L RDW Std Deviation 44.8 H RDW Coeff of Patrick 15.9 H Plt Count 368 MPV 8.9 Immature Gran % (Auto) 0.600 Neut % (Auto) 58.4 Lymph % (Auto) 33.0 Banks % (Auto) 6.4 Eos % (Auto) 0.9 Baso % (Auto) 0.7 Absolute Neuts (auto) 7.2 Absolute Lymphs (auto) 4.03 Nucleated RBC % 0 Sodium 139 Potassium 4.3 Chloride 102 Carbon Dioxide 26.3 Anion Gap 11 BUN 15 Creatinine 0.79 Est GFR (MDRD) Non-Af 80 BUN/Creatinine Ratio 19.3 Glucose 105 H Calcium 9.3 Troponin T High Sens 12 Troponin T Hi Sens 2 Hr 14 NT pro BNP II 102 Radiography Diagnostic Testing: Clinical Impression(s) from Imaging Studies Brain CT 02/19/25 15:56 IMPRESSION: 1. No intracranial hemorrhage. No mass effect or midline shift. 2. Chronic involutional and ischemic gliotic white matter changes. Reading Location: [facility] Chest X-Ray 02/19/25 16:05 IMPRESSION: Mild cardiomegaly and mild pulmonary vascular congestion. Reading Location: [facility] Discharge Plan Triage Chief Complaint: Hypertension ED Provider: Connor Flores Dx/Rx/DC Orders Clinical Impression: Shortness of breath, Pulmonary vascular congestion, Hypertension Instructions: ED Dyspnea Prescriptions: New furosemide [Lasix] 20 mg tablet 20 mg PO DAILY Qty: 5 0RF No Action hydrocodone-acetaminophen 7.5-325 mg tablet 1 tab PO TID paroxetine HCl [Paxil] 40 MG tablet 40 mg PO DAILY trazodone 50 MG tablet 50 mg PO QHS esomeprazole magnesium [Nexium] 40 MG capsule 40 mg PO BID lorazepam 1 MG tablet 2 mg PO BID cholecalciferol (vitamin D3) 50,000 UNIT capsule 50,000 units PO KEITA Patient Comments: takes q monday Rx Instructions: takes on monday Pulmicort Flexhaler 1 PUFF inhaler 2 puff inhalation BID Patient Comments: inhale 2 puffs twice daily losartan 50 MG tablet 50 mg PO DAILY montelukast 10 MG tablet 10 mg PO DAILY albuterol sulfate [Ventolin HFA] 90 mcg/actuation HFA aerosol inhaler 1 - 2 puff inhalation Q4H PRN PRN (Reason: Wheezing) Qty: 8.5 0RF azelastine 137 mcg (0.1 %) aerosol,spray 2 spray intranasal BID PRN (Reason: antihistamine) Rx Instructions: administer into each nostril albuterol sulfate 2.5 mg /3 mL (0.083 %) solution for nebulization 2.5 mg inhalation 4X/DAY PRN PRN (Reason: shortness of breath or wheezing) levothyroxine 88 mcg tablet 88 mcg PO DAILY Primary Care Provider: Olivia Gates Referrals: Olivia Gates DO [Primary Care Provider, Family Practice] Activity Restrictions/Additional Instructions: We will provide you with a few days worth of a water pill called Lasix I would still want you to follow-up with your primary care because you should probably have some outpatient blood work done make sure that your kidney function still stays appropriate you should also follow-up with them regarding your blood pressure management please return if you are having worsening symptoms Print Language: Persian Disposition Disposition: Home, Self Care D/C Safety Score for UGIB Assessment Willow-Blatchford Bleeding Score (GBS): Stratifies upper GI bleeding patients who are "low-risk" and candidates for outpatient management. Hemoglobin, BUN, Recent Vital Signs: Hgb 12.4 g/dL (12.0-15.0) 02/19/25 14:00 BUN 15 mg/dL (4-19) 02/19/25 14:00 Pulse Rate 74 Blood Pressure 158/64 Score Interpretation: Score of 0: A GBS of 0 is a “Low Risk” GI bleed, and is highly sensitive (99.6% in a 2007 retrospective study) for predicting which patients did not require any “medical intervention”: blood transfusion, endoscopy, or surgery. This was confirmed in a 2009 [facility] study where patients with a score of 0 were actually discharged and had no GI bleeding mortality at 6 month followup Score above 0: A GBS greater than zero suggests a “High Risk” GI bleed that is likely to require “medical intervention”: transfusion, endoscopy, or surgery. A higher GBS also correlated with a higher likelihood of needing intervention Scores >/= 6 are associated with >50% risk of needing intervention D/C Safety Score for LGIB Assessment Assessment Tool: Readmission and adverse event risk in patients with acute lower GI bleeding. Hemoglobin and Recent Vital Signs: Hgb 12.4 g/dL (12.0-15.0) 02/19/25 14:00 Pulse Rate 74 02/19/25 17:57 Blood Pressure 158/64 02/19/25 17:57 Score Interpretation: Probability Percentage of safe discharge (absence of rebleeding, blood transfusion, therapeutic intervention, 28 day readmission, or ) Score of 8 or below: Consider discharge, with appropriate precautions. Score of 9 or above: Discharge NOT recommended. Consider admission with further workup and resuscitation as necessary.
[2025-02-19 17:13] LABS: Pro- Brain NATRIURETIC PEPTIDE 102 pg/mL (<=900); Troponin T High Sensitivity 12 ng/L (<=14)
[2025-02-19 17:57] VITALS: BP 158/64; PULSE 74; RESP 18; O2SAT 98
[2025-02-19] MEDS: HYDROcodone Bitartrate/Apap 5/325 Tablet PO (18:26)
[2025-02-19 18:29] LABS: Troponin T High Sens 2 HR 14 ng/L (<=14)
[2025-02-19 19:08] VITALS: BP 139/36; PULSE 70; RESP 14; TEMP 36.6; O2SAT 100
[2025-02-19 19:10] VITALS: BP 149/64
== END 2025-02-19 19:13 | disposition home or self-care (01) ==
PROVIDERS: Emergency Provider Specialist/Technologist Athletic Trainer; PCP Family Medicine; Visit Provider Specialist/Technologist Athletic Trainer
DX: I10 Essential (primary) hypertension (principal); R06.02 Shortness of breath; R09.89 Other specified symptoms and signs involving the circulatory and respiratory systems; F41.8 Other specified anxiety disorders; Z79.899 Other long term (current) drug therapy; K21.9 Gastro-esophageal reflux disease without esophagitis; J45.909 Unspecified asthma, uncomplicated; Z79.51 Long term (current) use of inhaled steroids; E03.9 Hypothyroidism, unspecified; Z79.890 Hormone replacement therapy; Z90.49 Acquired absence of other specified parts of digestive tract; Z90.710 Acquired absence of both cervix and uterus
CPT/HCPCS: 70450; 71045; 80048; 83880; 84484; 85025; 93005; 96374; 99285; A4216; J1938

== ENCOUNTER 2025-03-06 11:54 | Emergency (ER) | payer MEDICARE, MEDICAID, SELFPAY ==
[2025-03-06 11:55] VITALS: PULSE 84; RESP 18; TEMP 36.8; O2SAT 94; BMI 47.2
--- NOTE | 2025-03-06 12:05 | EX.ED.DYSGE1 ---
HPI History of Present Illness Chief Complaint: Nausea/Vomiting/Diarrhea Detail of Chief Complaint: Abdominal pain with nausea, vomiting or diarrhea Informant: patient Onset/Context/Timing Onset: Days (Evening of Monday, February 27) Context: Sudden Onset Timing: Continuous and Waxes and wanes Quality: Pain and distention Location: Entire abdomen Current Severity: Moderate Maximum Severity: Severe Worsened by: Nothing Relieved by: Nothing Associated Symptoms Associated Symptoms: Nausea, vomiting and diarrhea Narrative Narrative: Patient is a 70-year-old woman. She has history of hypertension, depression, hypothyroidism who presents because of abdominal pain with nausea, vomit diarrhea. Half hour after she had general show chicken on Monday she began to have vomiting. She states she vomited twice Monday evening. She reports vomiting 3 times yester, Monday, March 05 and 10+ loose watery stools. There may have been mucus. Today she endorses dry heaves. She has not had diarrhea since last evening. Patient endorses thirst, dry mouth and lightheaded as if she is going to pass out when she stands. Patient denies hematemesis or coffee-ground emesis. Patient denies maroon or black watery diarrhea. Patient denies fever, chills or night sweats. Patient does endorse decreased urine output. Patient denies headache, visual, ocular auditory symptoms. Patient denies cardiac or respiratory symptoms. Patient denies myalgias or arthralgias. She denies rash or any lesions on her extremities. Prior similar symptoms: Yes (Food poisoning) Recent Illness/Hospitalization: No [facility] Medical History RAJNI (obstructive sleep apnea) Morbid obesity Allergic rhinitis Asthma Urinary incontinence Anxiety and depression Wears glasses Wears dentures Post-menopausal Ambulates with cane Arthritis History of hiatal hernia Non-smoker Persistent dry cough History of stress test History of echocardiogram Hx of fracture of wrist 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, right shoulder Right rotator cuff tear Pulmonary hypertension GERD (gastroesophageal reflux disease) Hypothyroidism HTN (hypertension) Chronic back pain Home Medications ?Medication ?Instructions ?Recorded ?Last Taken ?Type paroxetine HCl 40 mg tablet (Paxil) 40 mg PO DAILY depression 01/29/13 08/21/24 06:30 History trazodone 50 mg tablet 50 mg PO QHS sleep 01/29/13 12/21/21 History esomeprazole magnesium 40 mg 40 mg PO BID GERD 05/16/14 08/21/24 04:29 History capsule,delayed release (Nexium) lorazepam 1 mg tablet 2 mg PO BID anxiety 10/11/16 08/21/24 06:30 History cholecalciferol (vitamin D3) 1,250 50,000 units PO KEITA Vit D deficiency 05/20/17 12/19/21 History mcg (50,000 unit) capsule budesonide 180 mcg/actuation 2 puff inhalation BID SOB/wheezing 12/13/17 12/21/21 History breath activated powder inhaler (Pulmicort Flexhaler) losartan 50 mg tablet 50 mg PO DAILY blood pressure 07/04/20 08/21/24 06:30 History montelukast 10 mg tablet 10 mg PO DAILY allergies 07/04/20 08/21/24 04:30 History albuterol sulfate 90 mcg/actuation 1 - 2 puff inhalation Q4H PRN PRN 04/13/21 Unknown Rx aerosol inhaler (Ventolin HFA) Wheezing #8.5 grams azelastine 137 mcg (0.1 %) nasal 2 spray intranasal BID PRN 12/22/21 12/21/21 History spray antihistamine albuterol sulfate 2.5 mg/3 mL 2.5 mg inhalation 4X/DAY PRN PRN 08/16/24 Unknown History (0.083 %) solution for nebulization shortness of breath or wheezing levothyroxine 88 mcg tablet 88 mcg PO DAILY 08/16/24 08/21/24 04:30 History hydrocodone 7.5 mg-acetaminophen 1 tab PO TID 01/06/25 Unknown History 325 mg tablet furosemide 20 mg tablet (Lasix) 20 mg PO DAILY #5 tabs 02/19/25 Unknown Rx dicyclomine 10 mg capsule 20 mg (2 x 10 mg) PO TIDAC #20 03/06/25 Unknown Rx CAPSULES ondansetron 4 mg disintegrating 4 mg PO Q8H PRN PRN Nausea #6 tabs 03/06/25 Unknown Rx tablet Allergy/AdvReac Type Severity Reaction Status Date / Time No Known Allergies Allergy Verified 03/06/25 11:57 Family History Father Cancer Mother Cancer Sister Cancer Brother Cancer Surgical History S/P rotator cuff repair History of esophagogastroduodenoscopy (EGD) Hx of colonoscopy History of back surgery History of cholecystectomy History of hysterectomy History of back surgery History of hernia repair Social History household members: children housing: apartment Smoking Status: Never smoker second hand exposure: No alcohol intake: never substance use type: does not use ROS ROS ED Constitutional Constitutional ED: Denies chills, fever(s), subjective or sweats Eyes Eyes: Denies blurry vision, change in vision or diplopia ENT ENT ED: Denies ear pain, rhinorrhea or sore throat Cardiovascular Cardiovascular: Denies chest pain or palpitations Respiratory/Chest Respiratory/Chest: Denies cough, dyspnea or dyspnea on exertion Gastrointestinal Gastrointestinal: Reports abdominal pain, diarrhea, nausea and vomiting; Denies constipation or melena Genitourinary Genitourinary ED: Reports other Details: Decreased urine output ; Denies dysuria, hematuria or urinary frequency Musculoskeletal Musculoskeletal: Denies arthralgias or myalgias Integumentary Denies rash Neurologic Neurologic: Reports weakness; Denies headache(s) or paresthesias Hematologic/Lymphatic Hematologic/Lymphatic: Reports systems reviewed and no addt'l complaints, except as documented EXAM Physical Exam Const Vital Signs: 03/06/25 11:55 03/06/25 13:54 Temperature 98.3 F Temperature Source Oral Pulse Rate 84 68 Respiratory Rate 18 14 Blood Pressure 153/72 H Blood Pressure Mean 99 Pulse Ox 94 96 Oxygen Delivery Method Room Air Positive well nourished and well developed Constitutional Narrative: Patient is crying. Asked why she is crying because she does not feel good. She also complained of generalized abdominal discomfort. General Appearance ED: well developed; Negative for pallor HEENT Reports dry mucous membranes HEENT Narrative: Head is atraumatic and normocephalic. Ears normal. Nares patent. Posterior pharynx not erythema or exudate. Uvula midline. No deviation of the tongue with protrusion. Mouth ED: Yes dry mucous membranes Mouth: dry mucous membranes Eyes PERRL and EOMs intact bilaterally General Eye ED: Negative for pale conjunctiva or scleral icterus Neck no lymphadenopathy, supple and no JVD Chest Wall inspection of chest normal and palpation of chest normal Resp normal respiratory effort and clear to auscultation bilaterally Cardio regular rate, regular rhythm, S1 normal heart sound, S2 normal heart sound and no murmurs GI hepatosplenomegaly and no masses; Negative for non-tender or non-distended GI Narrative: Exam is limited due to body habitus. BMI is 47.3. Inspection: abdominal distention Auscultation: hypoactive bowel sounds Palpation: soft and tender other (Diffuse.); Negative for guarding, splenomegaly, mass or rebound tenderness present Back/Spine no CVA tenderness Extremity normal to inspection General Extremety ED: Negative for tenderness Neuro oriented x3 and CN's II-XII intact bilaterally Sensorium / Orientation: alert Psych Mood & Affect: tearful Skin no rashes or lesions noted, no wounds and No skin turgor normal General Skin Exam: Negative for elasticity normal, jaundice or pallor MDM MDM MDM Narrative Medical decision making narrative: Clinically patient is dehydrated. 1 L of normal saline was ordered since there is no history of congestive heart failure after reviewing prior records. Since this has been going on for a couple of days BMP was obtained to assess electrolytes and specifically evaluate for hypokalemia. Also to assess renal function CO2 anion gap. CBC to assess white count H&H. If her white count is markedly elevated and her abdominal exam does not improve we will consider obtaining CT of the abdomen and pelvis with IV contrast if renal function is normal. She was medicated with Zofran for her nausea and vomiting. Since she has not had diarrhea for greater than 12 hours Imodium was not administered. She will receive dicyclomine once her nausea has improved for her abdominal discomfort. She was evaluated for hypertension. She was discharged to home. She had a CT of her head at that time which was unremarkable. White count was slightly elevated with microcytic indices. Her renal function was normal as were her electrolytes. History & Record Review Additional record(s) reviewed:: Prior outpatient record (Dr. Macario Sandoval's office notes were reviewed. She was seen for right shoulder pain/concerns. She had advanced imaging which revealed moderate osteoarthritis of the glenohumeral articular surface with subcortical cyst formation and marginal osteophytes. There was no muscular atrophy noted. Mimi), Prior ED visit and Prior labs Lab Data Attestation: I reviewed the patient's lab results. Lab results narrative: CBC reveals microcytic indices otherwise unremarkable. BMP reveals slight elevation of glucose of 116 with normal CO2 anion gap. Labs: Laboratory Results - last 24 hr 03/06/25 12:01 WBC 11.0 RBC 5.04 Hgb 12.2 Hct 39.8 MCV 79.0 L MCH 24.2 L MCHC 30.7 L RDW Std Deviation 46.6 H RDW Coeff of Patrick 16.3 H Plt Count 383 MPV 9.2 Immature Gran % (Auto) 0.500 Neut % (Auto) 56.2 Lymph % (Auto) 34.5 [place] % (Auto) 7.9 Eos % (Auto) 0.5 Baso % (Auto) 0.4 Absolute Neuts (auto) 6.2 Absolute Lymphs (auto) 3.81 Nucleated RBC % 0 Sodium 142 Potassium 3.3 Chloride 103 Carbon Dioxide 28.7 Anion Gap 11 BUN 12 Creatinine 0.86 Estim Creat Clear Calc 72.88 Est GFR (MDRD) Non-Af 72 BUN/Creatinine Ratio 14.1 Glucose 116 H Calcium 8.6 Radiography Diagnostic Testing: Clinical Impression(s) from Imaging Studies Abdomen/Pelvis CT 03/06/25 14:00 IMPRESSION: 1. Unchanged left lung base ground-glass opacities which may represent persistent atypical infection versus scarring. 2. Stable 4.8 cm right renal cyst. 3. No acute findings in the abdomen or pelvis as imaged. Reading Location: [facility] CT of the abdomen pelvis was reviewed by me. The liver is possibly slightly enlarged. Spleen appears normal. Increased rugae of the stomach noted. There is no obvious renal pathology. There is some mild atherosclerotic disease of the aorta. There is no evidence of aortic dilatation. There is some minimal diverticulosis noted. Urinary bladder is full. There are some phleboliths noted. Awaiting formal read by radiologist [id number]. Treatment and Re-Evaluation :: Patient was reassessed at 1238. She still complain of distention and bloating. She is had no vomiting or diarrhea so far. She still feels nauseous. She states her nausea has improved. Will order p.o. Bentyl which will help her with her pain and assess if she is able to drink anything without vomiting. Comments:: Patient was reassessed at 1347. She is moaning. She has significant tenderness to palpation. In light of this the fact that she is elderly we will obtain a CT of the abdomen and pelvis with IV contrast to determine if there is anything more significant than a gastroenteritis. Discharge Plan Triage Chief Complaint: Nausea/Vomiting/Diarrhea ED Provider: Federico Arango Dx/Rx/DC Orders Clinical Impression: Acute generalized abdominal pain, Nausea, vomiting and diarrhea, Dehydration, mild, RBC microcytosis, Hyperglycemia Instructions: ED Food Pois or Gastroenteritis Prescriptions: New ondansetron 4 mg tablet,disintegrating 4 mg PO Q8H PRN PRN (Reason: Nausea) Qty: 6 0RF dicyclomine 10 mg capsule 20 mg PO TIDAC Qty: 20 0RF No Action hydrocodone-acetaminophen 7.5-325 mg tablet 1 tab PO TID paroxetine HCl [Paxil] 40 MG tablet 40 mg PO DAILY trazodone 50 MG tablet 50 mg PO QHS esomeprazole magnesium [Nexium] 40 MG capsule 40 mg PO BID lorazepam 1 MG tablet 2 mg PO BID cholecalciferol (vitamin D3) 50,000 UNIT capsule 50,000 units PO KEITA Patient Comments: takes q monday Rx Instructions: takes on monday Pulmicort Flexhaler 1 PUFF inhaler 2 puff inhalation BID Patient Comments: inhale 2 puffs twice daily losartan 50 MG tablet 50 mg PO DAILY montelukast 10 MG tablet 10 mg PO DAILY albuterol sulfate [Ventolin HFA] 90 mcg/actuation HFA aerosol inhaler 1 - 2 puff inhalation Q4H PRN PRN (Reason: Wheezing) Qty: 8.5 0RF azelastine 137 mcg (0.1 %) aerosol,spray 2 spray intranasal BID PRN (Reason: antihistamine) Rx Instructions: administer into each nostril albuterol sulfate 2.5 mg /3 mL (0.083 %) solution for nebulization 2.5 mg inhalation 4X/DAY PRN PRN (Reason: shortness of breath or wheezing) levothyroxine 88 mcg tablet 88 mcg PO DAILY furosemide [Lasix] 20 mg tablet 20 mg PO DAILY Qty: 5 0RF Primary Care Provider: Olivia Gates Referrals: Olivia Gates DO [Primary Care Provider, Family Practice] Print Language: [place]
[2025-03-06 12:09] LABS: Hematocrit 39.8 % (37-47); Hemoglobin 12.2 g/dL (12.0-15.0); Immature Granulocytes Count 0.060 X10^3/uL (0.0-0.0); Mean Corp Hgb Conc 30.7 g/dL (32-36); Mean Corpuscular Volume 79.0 fL (81-99); Mean Platelet Vol. 9.2 fl (6.2-12.0); NRBC Flagged by Analyzer 0 % (0-5); Platelet Count 383 K/mm3 (150-450); RBC Distribution Width CV 16.3 % (11.6-14.6); RBC Distribution Width SD 46.6 fl (35.1-43.9); Red Blood Count 5.04 M/mm3 (4.2-5.4); White Blood Count 11.0 K/mm3 (4.4-11.0)
[2025-03-06] MEDS: 0.9% Normal Saline (1000mL) 1,000 ML 999 ML IV (12:11)
--- OUTSIDE RECORDS SUMMARY | 2025-03-06 12:24 | XMS RPT_ITS | CCD ---
Author Organization [facility] Care Team Providers Care Wigs Salesperson Name Role Phone Dr. Olivia Gates Primary Care Provider [phone] Nikolay Abdalla Emergency Provider Dr. hCaz Ortiz Admit Provider Dr. Chaz Ortiz Other Provider CLYDE Mendez Attending Provider Unavail able Dr. Lalo Abel Attending Provider Dr. Nikolay Simpson Attending Provider Dr. Nikolay Simpson Other Provider Dr. Olivia Gates Primary Care Provider [phone] Nikolay Gray Attending Provider Dr. Diego Weaver Referring Provider [phone] Dr. Olivia Gates Primary Care Provider [phone] Olivia Gates Other Provider Dr. Sj Oscar Attending Provider Dr. Gumaro Palencia Referring Provider Dr. Olivia Gates DO Primary Care Provider Nba OZUNA, Dr. Caballero Attending Provider Dr. Federico Arango MD Emergency Provider Dr. Olivia Gates DO Referring Provider Macario Sandoval MD Attending Provider [phone] Macario Sandoval MD Referring Provider Kody RICH, Dr. Baker Attending Provider Macario Sandoval MD Other Provider Jaime OZUNA, Macario Admit Provider Lio OZUNA, Dr. Leana Arzola Other Provider Angel DO, Dr. Ware Other Provider Lio OZUNA, Dr. Leana Arzola Attending Provider Jason OZUNA, Dr. Herzog Attending Provider Kody DO, Dr. Baker Primary Care Provider Macario Sandoval MD Attending Provider Kody DO, Dr. Baker Referring Provider Kody RICH, Dr. Baker Primary Care Provider Macario Sandoval MD Attending Provider Macario Sandoval MD Referring Provider Kody RICH, Dr. Baker Primary Care Provider Kody RICH, Dr. Baker Referring Provider Macario Sandoval MD Attending Provider Kody RICH, Dr. Baker Primary Care Physician Kody RICH, Dr. Baker Referring Provider Macario Sandoval MD Attending Physician Terrence OZUNA, Gunnar Attending Physician [phone] Gunnar Ocampo MD Emergency Department Physician Macario Sandoval MD Referring Provider Malys, Olivia Primary Care Unavailable Leana Vaca Consulting Unavailable Macario Sandoval Referring Unavailable Macario Sandoval Attending Unavailable Macario Sandoval Admitting Unavailable Chaz Ortiz Consulting Unavailable MollisonMacario Consulting Unavailable Malys, Olivia Referring Unavailable Malys, Olivia Primary Care Unavailable Macario Sandoval Attending Unavailable Malys, Olivia Referring Unavailable Malys, Olivia Primary Care Unavailable MollisonMacario Attending Unavailable Malys, Olivia Referring Unavailable Malys, Olivia Primary Care Unavailable JuliánisonMacario Attending Unavailable Malys, Olivia Primary Care Unavailable Arango, Federico Attending Unavailable Malys, Olivia Primary Care Unavailable Malys, Olivia Attending Unavailable Malys, Olivia Referring Unavailable Malys, Olivia Primary Care Unavailable Malys, Olivia Attending Unavailable Mollison, Macario Referring Unavailable Mollison, Macario Consulting Unavailable Mollison, Macario Attending Unavailable Malys, Olivia Primary Care Unavailable Mark Combs Attending Unavailable Malys, Olivia Primary Care Unavailable Malys, Olivia Referring Unavailable Mollison, Macario Attending Unavailable Malys, Olivia Referring Unavailable Malys, Olivia Primary Care Unavailable Malys, Olivia Attending Unavailable Malys, Olivia Referring Unavailable Malys, Olivia Primary Care Unavailable Mollison, Macario Referring Unavailable Mollison, Macario Attending Unavailable Malys, Olivia Primary Care Unavailable Malys, Olivia Referring Unavailable Malys, Olivia Primary Care Unavailable Malys, Olivia Attending Unavailable Mollison, Macario Referring Unavailable Mollison, Macario Attending Unavailable Malys, Olivia Primary Care Unavailable NeftaliujaaJaquelinal Attending Unavailable Malys, Olivia Primary Care Unavailable Leana Vaca Consulting Unavailable Mollison, Macario Referring Unavailable Mollison, Macario Attending Unavailable Mollison, Macario Admitting Unavailable Malys, Olivia Primary Care Unavailable Chaz Ortiz Consulting Unavailable Mollison, Macario Attending Unavailable Malys, Olivia Primary Care Unavailable Mollison, Macario Attending Unavailable Malys, Olivia Primary Care Unavailable Mollison, Macario Attending Unavailable Malys, Olivia Primary Care Unavailable Malys, Olivia Referring Unavailable Malys, Olivia Primary Care Unavailable Malys, Olivia Referring Unavailable Malys, Olivia Attending Unavailable Gunnar Ocampo Attending Unavailable Malys, Olivia Primary Care Unavailable Mollison, Macario Attending Unavailable Malys, Olivia Primary Care Unavailable Malys, Olivia Referring Unavailable Malys, Olivia Referring Unavailable Mollison, Macario Attending Unavailable Malys, Olivia Primary Care Unavailable Mollison, Macario Attending Unavailable Malys, Olivia Referring Unavailable Malys, Olivia Primary Care Unavailable Malys, Olivia Primary Care Unavailable Jaime, Macario Referring Unavailable Mino Gomez Attending Unavailable Leana Vaca Consulting Unavailable Leana Vaca Attending Unavailable Mollison, Macario Referring Unavailable Mollison, Macario Admitting Unavailable Malys, Olivia Primary Care Unavailable Mollison, Macario Consulting Unavailable Allergies Allergy Classification Reported Allergen(s) Allergy Type Date of Onset Reaction(s) Facility (13 sources) Lisinopril Drug Allergy 05-22-[address] [facility] Medications Current Medications Medication Drug Class(es) Dates Sig (Normalized) Sig (Original) acetaminophen 325 mg / HYDROcodone bitartrate 7.5 mg oral tablet (20 sources) Opioid Agonist Start: 01-06-2025 Start: 01-06-2025 Start: 12-03-2019 End: 12-06-2019 Hydrocodone-Acetaminophen 1 TABLET tablet Discontinued 1 {tbl} PO [...] 29, 2013 12:00am September 20, 2013 2:08pm albuterol 0.83 mg/ml inhalation solution (20 sources) beta2-Adrenergic Agonist Start: 08-16-2024 take 2.5 mg by inhalation four times daily as needed for wheezing Start: 04-13-2021 take 1 puff(s) by in halation every four hours as needed Albuterol Sulfate (Ventolin Hfa) 90 mcg/actuation HFA aerosol inhaler Active 1 - 2 PUFF INHALATION EVERY 4 HOURS NEEDED 8.5 April 13, 2021 1:54am Start: 04-13-2021 Start: 04-13-2021 take 1 puff(s) by in [...] 1:00am May 23, 2017 12:06pm azelastine hydrochloride 0.1 37 mg/actuat metered dose nasal spray (20 sources) Histamine-1 Receptor Antagonist Start: 04-13-2021 End: 12-22-2021 Start: 04-13-2021 End: 12-22-2021 take 1 spray(s) [...] 1 puff(s) by in halation twice daily Start: 12-13-2017 take 1 puff(s) by in [...] D Start: 05-20-2017 take 1 capsule by mo [facility] once Start: 05-20-2017 Cholecalcifero l (Vitamin D3) 50,000 UNIT capsule Active 60001 U PO KEITA May 20, 2017 1:00am takes on monday esomeprazole 40 mg delayed release oral capsule (20 sources) Proton Pump Inhibitor Start: 05-16-2014 take 1 capsule by mouth twice daily levothyroxine sodium 0.088 mg oral tablet (20 sources) l-Thyroxine Start: 08-16-2024 take 1 tablet by mouth once daily Start: 12-13-2017 End: 08-16-2024 take 1 tablet by mouth once daily Levothyroxine 50 MCG tablet Discontinued 50 ug PO DAILY December 13, 2017 12:00am August 16, 2024 1:39pm thyroid LORazepam 1 mg oral tablet (20 sources) Benzodiazepine Start: 10-11-2016 take 2 tablets by [facility] twice daily Start: 10-11-2016 take 2 mg by mouth [...] take 1 tablet by mouth once daily montelukast 10 mg oral tablet (20 sources) Leukotriene Receptor Antagonist Start: 07-04-2020 take 1 tablet by mouth once daily PARoxetine hydrochloride 40 mg oral tablet (20 sources) Serotonin Reuptake Inhibitor Start: 01-29-2013 take 1 tablet by mouth once daily Start: 01-29-2013 take 1 tablet by [facility] once daily Paroxetine Hcl (Paxil) 40 MG tablet Active 40 mg PO DAILY January 29, 2013 12:00am depression traZODone hydrochloride 50 mg oral tablet (20 sources) Serotonin Reuptake Inhibitor Start: 01-29-2013 take 1 tablet by mouth at bedtime Start: 01-29-2013 take 2 tablets by mo [facility] at bedtime Trazodone 50 MG tablet Active 100 mg PO AT BEDTIME January 29, 2013 12:00am Start: 01-29-2013 take 100 mg by mouth at bedtim e Trazodone Active 100 MG PO AT BEDTIME January 29, 2013 12:00am Completed/Discontinued Medications Medication Drug Class(es) Dates Sig (Normalized) Sig (Original) acetaminophen 325 mg / oxyCODONE hydrochloride 5 mg oral tablet (9 sources) Opioid Agonist Start: 08-21-2024 End: 10-01-2024 Oxycodone-Acetaminophe n (Percocet) 5-325 mg tablet Discontinued 1 {tbl} [...] 2:26pm cholesterol cephalexin 500 mg oral capsule (20 sources) Cephalosporin Antibacterial Start: 06-10-2022 End: 01-05-2024 take 1 capsule by mouth every six hours Cephalexin 500 mg capsule Discontinued 500 mg PO EVERY 6 HOURS 20 June 10, 2022 1:00am January 05, 2024 7:20pm Hydrocodone-Acetam inophen 1 EACH tablet (11 sources) Start: 01-29-2013 End: 09-20-2013 Hydrocodone-Acetaminop hen 1 EACH tablet Discontinued 1 {tbl} PO EVERY 6 HOURS NEEDED January 29, 2013 12:00am September 20, 2013 2:08pm meclizine hydrochloride 25 mg oral tablet (20 sources) Antiemetic Start: 06-10-2022 End: 01-05-2024 take 1 tablet by mouth four times daily as needed for dizziness Meclizine 25 mg tablet Discontinued 25 mg PO 4 TIMES DAILY NEEDED as needed for Dizziness February 24, 2023 5:11pm January 05, 2024 7:21pm pantoprazole 40 mg delayed release oral tablet (20 sources) Proton Pump Inhibitor Start: 12-22-2021 End: 01-05-2024 take 1 tablet by mouth once daily Pantoprazole 40 mg tablet,delayed release (DR/EC) Discontinued 40 mg PO DAILY December 22, 2021 12:00am January 05, 2024 7:21pm acid reflux predniSONE 10 mg oral tablet (6 sources) Start: 09-27-2024 End: 11-19-2024 Prednisone 10 [...] and giddiness] 05-30-2021 Episodic E Codes: Fall (11 sources) Falling injury; Translations: [Unspecified fall, initial encounter] 05-26-2024 Episodic Esophageal disorders (20 sources) Gastroesophageal reflux disease; Translations: [Gastro-esophageal reflux disease without esophagitis] 12-31-2021 Chronic Comment on above: CONTROLLED WITH MED Essential hypertension (20 sources) Hypertensive disorder; Translations: [Essential (primary) hypertension] Chronic Comment on above: CONTROLLED WITH MED Malaise and fatigue (20 sources) Fatigue; Translations: [Other fatigue] 07-05-2020 Episodic Mood disorders (20 sources) Depressive disorder; Translations: [Depression] 12-31-2021 Chronic Comment on above: ON MED Nonspecific chest pain (20 sources) Atypical chest pain; Translations: [Other chest pain] Episodic Open wounds of extremities (20 sources) Laceration of hand; Translations: [Laceration without foreign body of left hand, initial encounter] 12-31-2021 Episodic Osteoarthritis (20 sources) Arthritis of knee; Translations: [Unilateral primary osteoarthritis, right knee] Onset: 01-31-2025 05-06-2022 Chronic Other connective tissue disease (11 sources) Partial thickness rotator cuff tear; Translations: [...] right shoulder, not specified as traumatic] Onset: 11-19-2024 Episodic Other ear and sense organ disorders (20 sources) Malignant otitis externa; Translations: [Malignant otitis externa, unspecified ear] 12-04-2019 Chronic Other ear and sense organ disorders (20 sources) Acute otitis externa; Translations: [Unspecified acute noninfective otitis externa, right ear] 12-03-2019 Episodic Other ear and sense organ disorders (3 sources) Acute otitis externa of right ear; Translations: [Unspecified acute noninfective otitis externa, right ear] 12-03-2019 Episodic Other fractures (16 sources) Fracture of right rib; Translations: [Fracture of one rib, right side, initial encounter for closed fracture] 05-30-2024 Episodic Other injuries and conditions due to external causes (20 sources) Muscle strain; Translations: [Other injury of unspecified body region, initial encounter] 05-06-2022 Episodic Other lower respiratory disease (20 sources) Lower respiratory tract infection; Translations: [Unspecified acute lower respiratory infection] 10-04-2018 Episodic Other lower respiratory disease (20 sources) Chronic cough; Translations: [Chronic cough] 12-14-2017 Episodic Other lower respiratory disease (20 sources) Dyspnea; Translations: [Dyspnea, unspecified] 08-25-2017 Episodic Other lower respiratory disease (12 sources) Other forms of dyspnea; Translations: [Chronic dyspnea] 08-21-2023 Episodic Other lower respiratory disease (12 sources) Cough; Translations: [Cough] 08-21-2023 Episodic Other nervous system disorders (3 sources) Chronic pain; Translations: [Other chronic pain] 01-05-2025 Chronic Other non-traumatic joint disorders (20 sources) Pain in right shoulder; Translations: [Acute pain of right shoulder due to trauma] Onset: 01-23-2025 05-26-2024 Episodic Other screening for suspected conditions (not mental disorders or infectious disease) (1 source) Encounter for screening mammogram for malignant neoplasm of breast; Translations: [Encounter for screening mammogram for malignant neoplasm of breast] Onset: 02-19-2025 Episodic Other upper respiratory infections (20 sources) [...] on above: LUMBAR FUSION Residual codes; unclassified (18 sources) Viral syndrome; Translations: [Other general symptoms [...] (20 sources) Hypothyroidism; Translations: [Hypothyroidism, unspecified] Onset: 02-01-2025 Chronic Comment on above: ON MED Unclassified [...] Classification Problem Date Documented Da te Episodic/Chronic Genitourinary symptoms and ill-defined conditions (1 source) Dysuria; Translations: [Dysuria] Onset: 10-24-2024 Episodic Other fractures (1 source) Fracture of one rib, right side, initial encounter for closed fracture; Translations: [Fracture of one rib, right side, initial encounter for closed fracture] Onset: 05-30-2024 Episodic Results Test Name Value Interpretation Reference Range Facility Basic Metabolic Profile (BMP )on 02-19-2025 BUN/CRE 19.3 RATIO Normal 01-[address] [facility] Comment on above: Performed By: #### L 100.0100, L500.2500 #### [facility] [address] [place], [address] Calcium [Mass/Vol] 9.3 mg/dL Normal 7.6-11.0 [facility] Comment on above: Performed By: #### L 100.0100, L500.2500 #### [facility] [address] [facility] [address] Chloride [Moles/Vol] 102 mmol/L Normal 98-108 [facility] Comment on above: Performed By: #### L 100.0100, L500.2500 #### [facility] [address] [place], [address] CO2 [Moles/Vol] 26.3 mmol/L Normal 21.0-32.[address] [facility] Comment on above: Performed By: #### L 100.0100, L500.2500 #### [facility] [address] [place], [address] Creatinine [Mass/Vol] 0.79 mg/dL Normal 0.70-1.20 [facility] Comment on above: Performed By: #### L 100.0100, L500.2500 #### [facility] [address] [place], [address] GAP 11 Normal 5-[address] [facility] Comment on above: Performed By: #### L 100.0100, L500.2500 #### [facility] [address] [place], [address] GFR/1.73 sq M.predicted among non-blacks MDRD (S/P/Bld) [Vol rate/Area] 80 mL/min/{1.73_m2} Normal >[address] [facility] Comment on above: Result Comment: mL/m in/1.73m2 CKD-EPI Creatinine Equation (2020) Performed By: #### L 100.0100, L500.2500 #### [facility] [address] [place], [address] Glucose [Mass/Vol] 105 mg/dL High 70-99 [facility] Comment on above: Performed By: #### L 100.0100, L500.2500 #### [facility] [address] [place], [address] Potassium [Moles/Vol] 4.3 mmol/L Normal 3.3-5.1 [facility] Comment on above: Performed By: #### L 100.0100, L500.2500 #### [facility] [address] [place], [address] Sodium [Moles/Vol] 139 mmol/L Normal 133-145 [facility] Comment on above: Performed By: #### L 100.0100, L500.2500 #### [facility] [address] [place], [address] Urea nitrogen [Mass/Vol] 15 mg/dL Normal 4-[address] [facility] Comment on above: Performed By: #### L 100.0100, L500.2500 #### [facility] [address] [place], [address] Brain/Head without Contrasto n 02-19-2025 Brain/Head without Contrast [facility] [address] [place] [address] Brain/Head without Contrast MR#: [id number] Acct: [id number] Name: NENA KRISHNAN Rep #: [id number] : 1955 F 69 From: Bhavesh Sparks MD PCP: Dr. Olivia Gates, Status: REG ER Study: Brain/Head without Contrast Date of Exam: 02/08 06/04 Exam# [id number] Ordering Dr: Connor Flores DO PROCEDURE: BRAIN/HEAD WITHOUT CONTRAST 02/19/2025 REASON FOR EXAM: DIZZINESS TECHNIQUE: Procedure Code: CTBR Modality: CT Procedure: BRAIN/HEAD WITHOUT CONTRAST Coronal and Sagittal reconstruction series were provided. One or more dose reduction techniques were used (e.g., Automated exposure control, adjustment of the mA and/or kV according to patient size, use of iterative reconstruction technique. COMPARISON: CT head 02/24/2023 FINDINGS: There is no extra-axial or intra-axial intracranial hemorrhage. No mass effect or midline shift is seen. Generalized intracranial volume loss and findings compatible with chronic microvascular white matter ischemia. There is normal cannon-white matter differentiation. The posterior fossa is grossly unremarkable. The skull is unremarkable. Visualized paranasal sinuses are clear. The mastoid air cells show normal translucency. CT/Brain/Head without Contrast IMPRESSION: 1. No intracranial hemorrhage. No mass effect or midline shift. 2. Chronic involutional and ischemic gliotic white matter changes. Reading Location: [facility] CC: Dr. Olivia Gates, DO; Dr. Connor Flores DO Gas Meter Mechanic: Signed Normal [facility] CBC W/Diff, Automatedon 02-08 Absolute Lymph 4.03 X10 3/uL Normal 0.83-4.[address] [facility] Comment on above: Performed By: #### L 100.0100, L500.2500 #### [facility] [address] [place], [address] Absolute Neut 7.2 X10 3/uL Normal 2.0-7.[address] [facility] Comment on above: Performed By: #### L 100.0100, L500.2500 #### [facility] [address] [place], [address] Basophils/100 WBC (Bld) 0.7 % Normal 0-[address] [facility] Comment on above: Performed By: #### L 100.0100, L500.2500 #### [facility] [address] [place], [address] Eosinophils/100 WBC (Bld) 0.9 % Normal 0-[address] [facility] Comment on above: Performed By: #### L 100.0100, L500.2500 #### [facility] [address] [place], [address] Erythrocyte distribution width (RBC) [Ratio] 15.9 % High 11.6-14.[address] [facility] Comment on above: Performed By: #### L 100.0100, L500.2500 #### [facility] [address] [place], [address] Hematocrit (Bld) [Volume fraction] 40.1 % Normal 37-[address] [facility] Comment on above: Performed By: #### L 100.0100, L500.2500 #### [facility] [address] [place], [address] Hemoglobin (Bld) [Mass/Vol] 12.4 g/dL Normal 12.0-15.[address] [facility] Comment on above: Performed By: #### L 100.0100, L500.2500 #### [facility] [address] [place], [id number] IG% 0.600 Normal 0.0-0.[address] [facility] Comment on above: Result Comment: IG% - Immature Granulocytes (promyelocytes, myelocytes and metamyelocytes) > 1% indicates that a LEFT SHIFT is Present. Performed By: #### L 100.0100, L500.2500 #### [facility] [address] [place], [address] Lymphocytes/100 WBC (Bld) 33.0 % Normal 19-[address] [facility] Comment on above: Performed By: #### L 100.0100, L500.2500 #### [facility] [address] [place], [address] MCH (RBC) [Entitic mass] 24.4 pg Low 27.0-32.[address] [facility] Comment on above: Performed By: #### L 100.0100, L500.2500 #### [facility] [address] [place], [address] MCHC (RBC) [Mass/Vol] 30.9 g/dL Low 32-36 [facility] Comment on above: Performed By: #### L 100.0100, L500.2500 #### [facility] [address] [place], [address] MCV (RBC) [Entitic vol] 78.9 fL Low 81-[address] [facility] Comment on above: Performed By: #### L 100.0100, L500.2500 #### [facility] [address] [place], [address] Monocytes/100 WBC (Bld) 6.4 % Normal 0-[address] [facility] Comment on above: Performed By: #### L 100.0100, L500.2500 #### [facility] [address] [place], [address] Neutrophils/100 WBC (Bld) 58.4 % Normal 47-[address] [facility] Comment on above: Performed By: #### L 100.0100, L500.2500 #### [facility] [address] [place], [id number] Nucleated RBC (Bld) [#/Vol] 0 10*3/uL Normal 0-[address] [facility] Comment on above: Performed By: #### L 100.0100, L500.2500 #### [facility] [address] [place], [address] Platelet mean volume (Bld) [Entitic vol] 8.9 fL Normal 6.2-12.[address] [facility] Comment on above: Performed By: #### L 100.0100, L500.2500 #### [facility] [address] [place], [address] Platelets (Bld) [#/Vol] 368 10*3/uL Normal 150-[address] [facility] Comment on above: Performed By: #### L 100.0100, L500.2500 #### [facility] [address] [place], [address] RBC (Bld) [#/Vol] 5.08 10*6/uL Normal 4.2-5.4 [facility] Comment on above: Performed By: #### L 100.0100, L500.2500 #### [facility] [address] [place], [id number] RDW SD 44.8 fl High 35.1-43.[address] [facility] Comment on above: Performed By: #### L 100.0100, L500.2500 #### [facility] [address] [place], [address] WBC (Bld) [#/Vol] 12.2 10*3/uL High 4.4-11.0 [facility] Comment on above: Performed By: #### L 100.0100, L500.2500 #### [facility] [address] [place], [id number] Chest 1 View (Portable)on Chest 1 View (Portable) [facility] [address] [place] [id number] Chest 1 View (Portable) MR#: [id number] Acct: [id number] Name: NENA KRISHNAN Rep #: [id number] : 1955 F 69 From: Bhavesh Sparks MD PCP: Dr. Olivia Gates DO Status: REG ER Study: Chest 1 View (Portable) Date of Exam: 02/19/25 Exam# [id number] Ordering Dr: Connor Flores DO PROCEDURE: CHEST 1 VIEW (PORTABLE) 02/19/2025 REASON FOR EXAM: DYSPNEA TECHNIQUE: Frontal view of the chest. COMPARISON: 01/05/2024 FINDINGS: Hardware: None. Heart: Heart size is mildly enlarged. Lungs: Mild pulmonary vascular congestion. No definite pneumothorax or sizable pleural effusion. Bones: Degenerative changes are identified within the thoracic spine. RAD/Chest 1 View (Portable) IMPRESSION: Mild cardiomegaly and mild pulmonary vascular congestion. Reading Location: [facility] CC: Dr. Olivia Gates DO; Dr. Connor Flores DO Gas Meter Mechanic: Signed Normal [facility] Emergency Department Summary on 02-19-2025 Emergency Department Summary [facility] Medical Records Department [address] [place] [id number] Emergency Department Summary 02/19/25 MR#: [id number] Acct: [id number] Name: NENA KRISHNAN Rep #: [id number] : 1955 69 From: Connor Flores DO PCP: Dr. Olivia Gates DO Status:REG ER Location: ED HPI History of Present Illness Chief Complaint: Hypertension Narrative Narrative: Patient was seen and examined after presenting to ED for feeling lightheaded also feeling weak for several days feels like her blood pressure has been more elevated than usual she has not missed any doses. [facility] Medical History RAJNI (obstructive sleep apnea) Morbid [...] disease) Hypothyroidism HTN (hypertension) Chronic back pain Home Medications ???Medication ???Instructions ???Recorded ???Last Taken ???Type paroxetine HCl 40 mg tablet (Paxil) 40 mg PO DAILY depression 01/2908/21/24 06:30 History trazodone 50 mg tablet 50 mg PO QHS sleep 01/29/13 History esomeprazole magnesium 40 mg 40 mg PO BID GERD 05/16/14 5 04:29 History capsule,delayed release (Nexium) lorazepam 1 mg tablet 2 mg PO BID anxiety 10/11/1608/21 06:30 History cholecalciferol (vitamin D3) 1,250 50,000 units PO KEITA Vit D deficie ncy 05/20/17 12/19/21 History mcg (50,000 unit) capsule budesonide 180 mcg/actuation 2 puff inhalation BID SOB/wheezing 12/13/17 12/21/21 History breath activated powder inhaler (Pulmicort Flexhaler) losartan 50 mg tablet 50 mg PO DAILY blood pressure 06/0908/21/24 06:30 History montelukast 10 mg tablet 10 mg PO DAILY allergies 07/04/20 08/21/24 04:30 History albuterol sulfate 90 mcg/actuation 1 - 2 puff inhalation Q4H PRN AL N 04/13/21 Unknown Rx aerosol inhaler (Ventolin HFA) Wheezing #8.5 grams azelastine 137 mcg (0.1 %) nasal 2 spray intranasal BID PRN 2 12/21/21 History spray antihistamine albuterol sulfate 2.5 mg/3 mL 2.5 mg inhalation 4X/DAY PRN PRN 0 08/16/24 Unknown History (0.083 %) solution for nebulization shortness of breath or wheezing levothyroxine 88 mcg tablet 88 mcg PO DAILY 08/16/24 08/21/24 04:30 History hydrocodone 7.5 mg-acetaminophen 1 tab PO TID 01/06/25 Unknown Hist ory 325 mg tablet furosemide 20 mg tablet (Lasix) 20 mg PO DAILY #5 tabs 02/19/25 Un known Rx Allergy/AdvReac Type Severity Reaction Status Date / Time No Known Allergies Allergy Verified 02/19/25 12:23 Family History Father Cancer Mother Cancer Sister Cancer Brother Cancer Surgical History S/P rotator cuff repair History of esophagogastroduodenoscopy (EGD) Hx of colonoscopy History of back surgery History of cholecystectomy History of hysterectomy History of back surgery History of hernia repair Social History household members: children housing: apartment Smoking Status: Never smoker second hand exposure: No alcohol intake: never substance use type: does not use ROS ROS ED ROS Narrative Pertinent Positives: Lightheadedness weakness elevated blood pressure shortness of breath Pertinent Negatives: Fevers chills chest pain pressure vision changes numbness 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 Systems reviewed including constitutional, psychiatric, cardiovascular, respiratory, integument, HENT, gastrointestinal. EXAM Physical Exam Narrative Exam Narrative: Patient is afebrile she is oxygenating well on room air she was slightly hypertensive. Normal heart and lung sounds abdomen is soft nontender nondistended although she does have larger body habitus she has intact and equal MSPs in her extremities no lower extremity calf tenderness does have some mild bilateral lower extremity edema. Patient has normal range of motion of her head and neck. Pupils are equal round reactive to light does not appear to be sensitive to light. Const Vital Signs: 02/19/25 12:21 02/19/25 13:20 02/19/25 14:20 Temperature 98.4 F Temperature Source Oral Pulse Rate 80 78 (more content not included)... Normal [facility] L501.4021on 02-19-2025 Trop T High Sen 12 ng/L Normal <=[address] [facility] Comment on above: Performed By: #### L 501.4021, L503.7505 #### [facility] [address] [place], [address] Pro- Brain NATRIURETIC PEPTI Robert 02-19-2025 Natriuretic peptide B (Bld) [Mass/Vol] 102 pg/mL Normal <=[address] [facility] Comment on above: Result Comment: Hear t Failure Unlikely: < 300 pg/mL Heart Failure Likely < 50 Years: > 450 pg/mL 50-75 Years: > 900 pg/mL >75 Years: > 1800 pg/mL Performed By: #### L 501.4021, L503.7505 #### [facility] [address] [place], [place], [id number] Troponin T HS 2 HRon 025 Trop T High Sen 14 ng/L Normal <=[address] [facility] Comment on above: Performed By: #### L 499.0042 #### [facility] [address] [place], [address] CBC W/Diff, Automatedon 10-0 Absolute Lymph 4.63 X10 3/uL High 0.83-4.[address] [facility] Comment on above: Performed By: #### L 506.0400, L100.0100, L501.9985, L501.9520, L500.4050, L501.24796 #### [facility] [address] [place], [address] Absolute Neut 5.0 X10 3/uL Normal 2.0-7.[address] [facility] Comment on above: Performed By: #### L 506.0400, L100.0100, L501.9985, L501.9520, L500.4050, L501.30937 #### [facility] [address] [place], [address] Basophils/100 WBC (Bld) 0.7 % Normal 0-[address] [facility] Comment on above: Performed By: #### L 506.0400, L100.0100, L501.9985, L501.9520, L500.4050, L501.53331 #### [facility] [address] [place], [address] Eosinophils/100 WBC (Bld) 2.0 % Normal 0-[address] [facility] Comment on above: Performed By: #### L 506.0400, L100.0100, L501.9985, L501.9520, L500.4050, L501.15389 #### [facility] [address] [place], [address] Erythrocyte distribution width (RBC) [Ratio] 16.4 % High 11.6-14.[address] [facility] Comment on above: Performed By: #### L 506.0400, L100.0100, L501.9985, L501.9520, L500.4050, L501.92024 #### [facility] [address] [place], [address] Hematocrit (Bld) [Volume fraction] 36.9 % Low 37-[address] [facility] Comment on above: Performed By: #### L 506.0400, L100.0100, L501.9985, L501.9520, L500.4050, L501.93361 #### [facility] [address] [place], [address] Hemoglobin (Bld) [Mass/Vol] 11.6 g/dL Low 12.0-15.[address] [facility] Comment on above: Performed By: #### L 506.0400, L100.0100, L501.9985, L501.9520, L500.4050, L501.16114 #### [facility] [address] [place], [address] IG% 0.600 Normal 0.0-0.[address] [facility] Comment on above: Result Comment: IG% - Immature Granulocytes (promyelocytes, myelocytes and metamyelocytes) > 1% indicates that a LEFT SHIFT is Present. Performed By: #### L 506.0400, L100.0100, L501.9985, L501.9520, L500.4050, L501.35404 #### [facility] [address] [place], [address] Lymphocytes/100 WBC (Bld) 43.0 % High 19-[address] [facility] Comment on above: Performed By: #### L 506.0400, L100.0100, L501.9985, L501.9520, L500.4050, L501.80697 #### [facility] [address] [place], [address] MCH (RBC) [Entitic mass] 25.0 pg Low 27.0-32.[address] [facility] Comment on above: Performed By: #### L 506.0400, L100.0100, L501.9985, L501.9520, L500.4050, L501.30277 #### [facility] [address] [place], [address] MCHC (RBC) [Mass/Vol] 31.4 g/dL Low 32-36 [facility] Comment on above: Performed By: #### L 506.0400, L100.0100, L501.9985, L501.9520, L500.4050, L501.43996 #### [facility] [address] [place], [address] MCV (RBC) [Entitic vol] 79.5 fL Low 81-[address] [facility] Comment on above: Performed By: #### L 506.0400, L100.0100, L501.9985, L501.9520, L500.4050, L501.36266 #### [facility] [address] [place], [address] Monocytes/100 WBC (Bld) 7.2 % Normal 0-[address] [facility] Comment on above: Performed By: #### L 506.0400, L100.0100, L501.9985, L501.9520, L500.4050, L501.55241 #### [facility] [address] [place], [address] Neutrophils/100 WBC (Bld) 46.5 % Low 47-[address] [facility] Comment on above: Performed By: #### L 506.0400, L100.0100, L501.9985, L501.9520, L500.4050, L501.15574 #### [facility] [address] [place], [address] Nucleated RBC (Bld) [#/Vol] 0 10*3/uL Normal 0-[address] [facility] Comment on above: Performed By: #### L 506.0400, L100.0100, L501.9985, L501.9520, L500.4050, L501.04352 #### [facility] [address] [place], [address] Platelet mean volume (Bld) [Entitic vol] 9.5 fL Normal 6.2-12.[address] [facility] Comment on above: Performed By: #### L 506.0400, L100.0100, L501.9985, L501.9520, L500.4050, L501.71921 #### [facility] [address] [place], [address] Platelets (Bld) [#/Vol] 375 10*3/uL Normal 150-[address] [facility] Comment on above: Performed By: #### L 506.0400, L100.0100, L501.9985, L501.9520, L500.4050, L501.38784 #### [facility] [address] [place], [address] RBC (Bld) [#/Vol] 4.64 10*6/uL Normal 4.2-5.4 [facility] Comment on above: Performed By: #### L 506.0400, L100.0100, L501.9985, L501.9520, L500.4050, L501.38275 #### [facility] [address] [place], [address] RDW SD 46.5 fl High 35.1-43.[address] [facility] Comment on above: Performed By: #### L 506.0400, L100.0100, L501.9985, L501.9520, L500.4050, L501.75097 #### [facility] [address] [place], [address] WBC (Bld) [#/Vol] 10.8 10*3/uL Normal 4.4-11.0 [facility] Comment on above: Performed By: #### L 506.0400, L100.0100, L501.9985, L501.9520, L500.4050, L501.51834 #### [facility] [address] [place], [address] Comprehensive Metabolic Prof ilon 01-15-2025 Albumin [Mass/Vol] 4.0 g/dL Normal 3.4-4.8 [facility] Comment on above: Performed By: #### L 506.0400, L100.0100, L501.9985, L501.9520, L500.4050, L501.94043 ####[facility] [address] [place], [address] Albumin/Globulin [Mass ratio] 1.3 {ratio} Normal 0.9-2.[address] [facility] Comment on above: Performed By: #### L 506.0400, L100.0100, L501.9985, L501.9520, L500.4050, L501.48783 ####[facility] [address] [place], [address] ALK PHOS 95 U/L Normal 35-[address] [facility] Comment on above: Performed By: #### L 506.0400, L100.0100, L501.9985, L501.9520, L500.4050, L501.73304 ####[facility] [address] [place], [address] ALT [Catalytic activity/Vol] 14 U/L Normal <=[address] [facility] Comment on above: Performed By: #### L 506.0400, L100.0100, L501.9985, L501.9520, L500.4050, L501.11149 ####[facility] [address] [place], [address] AST [Catalytic activity/Vol] 23 U/L Normal <=[address] [facility] Comment on above: Performed By: #### L 506.0400, L100.0100, L501.9985, L501.9520, L500.4050, L501.02858 ####[facility] [address] [place], [address] BUN/CRE 16.2 RATIO Normal 10-[address] [facility] Comment on above: Performed By: #### L 506.0400, L100.0100, L501.9985, L501.9520, L500.4050, L501.19727 ####[facility] [address] [place], [address] Calcium [Mass/Vol] 9.0 mg/dL Normal 7.6-11.0 [facility] Comment on above: Performed By: #### L 506.0400, L100.0100, L501.9985, L501.9520, L500.4050, L501.29086 ####[facility] [address] [place], [address] Chloride [Moles/Vol] 103 mmol/L Normal 98-108 [facility] Comment on above: Performed By: #### L 506.0400, L100.0100, L501.9985, L501.9520, L500.4050, L501.21000 ####[facility] [address] [place], [address] CO2 [Moles/Vol] 24.9 mmol/L Normal 21.0-32.[address] [facility] Comment on above: Performed By: #### L 506.0400, L100.0100, L501.9985, L501.9520, L500.4050, L501.03019 ####[facility] [address] [place], [address] Creatinine [Mass/Vol] 0.74 mg/dL Normal 0.70-1.20 [facility] Comment on above: Performed By: #### L 506.0400, L100.0100, L501.9985, L501.9520, L500.4050, L501.85507 ####[facility] [address] [place], [address] GAP 11 Normal 5-[address] [facility] Comment on above: Performed By: #### L 506.0400, L100.0100, L501.9985, L501.9520, L500.4050, L501.90916 ####[facility] [address] [place], [address] GFR/1.73 sq M.predicted among non-blacks MDRD (S/P/Bld) [Vol rate/Area] 88 mL/min/{1.73_m2} Normal >[address] [facility] Comment on above: Result Comment: mL/m in/1.73m2 CKD-EPI Creatinine Equation (2020) Performed By: #### L 506.0400, L100.0100, L501.9985, L501.9520, L500.4050, L501.24461 ####[facility] [address] [place], [address] Globulin (S) [Mass/Vol] 3.1 g/dL Normal 2.2-4.[address] [facility] Comment on above: Performed By: #### L 506.0400, L100.0100, L501.9985, L501.9520, L500.4050, L501.40352 ####[facility] [address] [place], [address] Glucose [Mass/Vol] 96 mg/dL Normal 70-99 [facility] Comment on above: Performed By: #### L 506.0400, L100.0100, L501.9985, L501.9520, L500.4050, L501.97737 ####[facility] [address] [place], [address] Potassium [Moles/Vol] 3.5 mmol/L Normal 3.3-5.1 [facility] Comment on above: Performed By: #### L 506.0400, L100.0100, L501.9985, L501.9520, L500.4050, L501.53460 ####[facility] [address] [place], [address] Sodium [Moles/Vol] 139 mmol/L Normal 133-145 [facility] Comment on above: Performed By: #### L 506.0400, L100.0100, L501.9985, L501.9520, L500.4050, L501.42091 ####[facility] [address] [place], [address] T BILI < 0.15 Normal 0.00-1.[address] [facility] Comment on above: Performed By: #### L 506.0400, L100.0100, L501.9985, L501.9520, L500.4050, L501.59601 ####[facility] [address] [place], [address] T PROT 7.1 g/dL Normal 5.9-8.[address] [facility] Comment on above: Performed By: #### L 506.0400, L100.0100, L501.9985, L501.9520, L500.4050, L501.82518 ####[facility] [address] [place], [address] Urea nitrogen [Mass/Vol] 12 mg/dL Normal 4-[address] [facility] Comment on above: Performed By: #### L 506.0400, L100.0100, L501.9985, L501.9520, L500.4050, L501.30034 ####[facility] [address] [place], [address] Free T3on 01-15-2025 Free T3 [Mass/Vol] 2.9 pg/mL Normal 2.18-3.98 [facility] Comment on above: Performed By: #### L 506.0400, L100.0100, L501.9985, L501.9520, L500.4050, L501.00631 ####[facility] [address] [place], [address] Hemoglobin A1con 01-15-2025 HbA1c (Bld) [Mass fraction] 6.2 % High <=5.[address] [facility] Comment on above: Result Comment: Norm al < 5.7 % Prediabetic 5.7 - 6.4 % Diabetic >or= 6.5 % Please note range changes. Performed By: #### L 506.0400, L100.0100, L501.9985, L501.9520, L500.4050, L501.44987 ####[facility] [address] [place], [address] T4 Free Directon 01-15-2025 T4 FREE DIRECT 1.10 ng/dL Normal 0.76-1.[address] [facility] Comment on above: Performed By: #### L 506.0400, L100.0100, L501.9985, L501.9520, L500.4050, L501.90413 ####[facility] [address] [place], [place], [address] Thyroid Stim Hormone (TSH)on 01-15-2025 TSH 3.240 uIU/mL Normal 0.300-4.[address] [facility] Comment on above: Performed By: #### L 506.0400, L100.0100, L501.9985, L501.9520, L500.4050, L501.18272 ####[facility] [address] [place], [address] Orthopedic Visit Reporton Orthopedic Visit Report [facility] [address] [place] [address] [address] [place] [address] OFFICE VISIT Date of Service: 01/06/25 MR#: [id number] Acct: [id number] Name: NENA KRISHNAN Rep #: [id number] : 1955 Provider: Dr. Macario silva MD Age/Sex: 69/F Location: [facility] [place] Status: Signed Intake Vital Signs 12/28/24 11:08 Height 5 ft 2 in Intake Visit Reasons: RIGHT SHOULDER Chief Complaint: right shoulder concerns Is patient in pain?: Yes (Right shoulder) Pain scale (1-10): 6 Allergies No Known Allergies Allergy (Verified 01/06/25 11:12) Medications ???Medication ???Instructions ???Recorded ???Confirmed ???Type paroxetine HCl 40 mg tablet (Paxil) 40 mg PO DAILY depression 01/2901/06/25 History trazodone 50 mg tablet 50 mg PO QHS sleep 01/29/13 History esomeprazole magnesium 40 mg 40 mg PO BID GERD 05/16/14 5 History capsule,delayed release (Nexium) lorazepam 1 mg tablet 2 mg PO BID anxiety 10/11/1601/06 History cholecalciferol (vitamin D3) 1,250 50,000 units PO KEITA Vit D deficie ncy 05/20/17 01/06/25 History mcg (50,000 unit) capsule budesonide 180 mcg/actuation 2 puff inhalation BID SOB/wheezing 12/13/17 01/06/25 History breath activated powder inhaler (Pulmicort Flexhaler) losartan 50 mg tablet 50 mg PO DAILY blood pressure 06/0901/06/25 History montelukast 10 mg tablet 10 mg PO DAILY allergies 07/04/20 01/06/25 History albuterol sulfate 90 mcg/actuation 1 - 2 puff inhalation Q4H PRN AL N 04/13/21 01/06/25 Rx aerosol inhaler (Ventolin HFA) Wheezing #8.5 grams azelastine 137 mcg (0.1 %) nasal 2 spray intranasal BID PRN 2 01/06/25 History spray antihistamine albuterol sulfate 2.5 mg/3 mL 2.5 mg inhalation 4X/DAY PRN PRN 0 08/16/24 01/06/25 History (0.083 %) solution for nebulization shortness of breath or wheezing levothyroxine 88 mcg tablet 88 mcg PO DAILY 08/16/24 01/06/25 History hydrocodone 7.5 mg-acetaminophen 1 tab PO TID 01/06/25 01/06/25 His tory 325 mg tablet Have you fallen in the past year?: [...] Brother Cancer Social History household members: children housing: apartment Smoking Status: Never smoker second hand exposure: No alcohol intake: never substance use type: does not use HPI RIGHT SHOULDER Details: This documentation accurately reflects the service provided and the decisions made by me, Dr. Macario Sandoval MD 01/06/25 7222. Part of today???s visit was documented by [ ], acting as scribe. NENA KRISHNAN is a 69 year old F here today for FU CT for RTSA planning. Supplemental Info [facility] [address] [place] [id number] Extremity Upper without Contra MR#: [id number] Acct: [id number] Name: NENA KRISHNAN Rep #: [id number] : 1955 F 69 From: Juanito Rivas MD PCP: Dr. Olivia Gates, DO Status: REG CLI Study: Extremity Upper without Contra Date of Exam: 12/31/24 Exam# [id number] Ordering Dr: Macario Sandoval MD PROCEDURE: EXTREMITY UPPER WITHOUT CONTRA 12/31/2024 REASON FOR EXAM: PRE OPERATIVE PLANNING FOR REVERSE TOTAL TECHNIQUE: Procedure Code: CTEUWO Modality: CT Procedure: EXTREMITY UPPER WITHOUT CONTRA Coronal and Sagittal reconstruction series were provided. One or more dose reduction techniques were used (e.g., Automated exposure control, adjustment of the mA and/or kV according to patient size, use of iterative reconstruction technique. RADIATION DOSE SUMMARY: DLP: 1032 mGycm (more content not included)... Normal [facility] Extremity Upper without Cont raon 12-31-2024 Extremity Upper without Contra [facility] [address] [place], [place] [address] Extremity Upper without Contra MR#: [id number] Acct: [id number] Name: NENA KRISHNAN Rep #: [id number] : 1955 F 69 From: Juanito Rivas MD PCP: Dr. Olivia Gates DO Status: REG CLI Study: Extremity Upper without Contra Date of Exam: 0 12/31/24 Exam# [id number] Ordering Dr: Macario Sandoval MD PROCEDURE: EXTREMITY UPPER WITHOUT CONTRA 12/31/2024 REASON FOR EXAM: PRE OPERATIVE PLANNING FOR REVERSE TOTAL TECHNIQUE: Procedure Code: CTEUWO Modality: CT Procedure: EXTREMITY UPPER WITHOUT CONTRA Coronal and Sagittal reconstruction series were provided. One or more dose reduction techniques were used (e.g., Automated exposure control, adjustment of the mA and/or kV according to patient size, use of iterative reconstruction technique. RADIATION DOSE SUMMARY: DLP: 1032 mGycm COMPARISON: None FINDINGS: There is moderate osteoarthritis of the glenohumeral articulation with subcortical cyst formation and marginal osteophytes. AC joint is aligned. There is no visible radiopaque foreign body. There is no visible muscular atrophy. There is no visible atherosclerosis. Adjacent lung shows interstitial infiltrate versus fibrosis in the right upper and middle lobe. A 0.5 cm peripheral pulmonary nodule is noted, image 95/156. CT/Extremity Upper without Contra IMPRESSION: ere is moderate osteoarthritis of the glenohumeral articulation with subcortical cyst formation and marginal osteophytes. Adjacent lung shows interstitial infiltrate versus fibrosis in the right upper and middle lobe. A 0.5 cm peripheral pulmonary nodule is noted, image 95/156. Reading Location: [facility] CC: Dr. Olivia Gates DO; Dr. 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 Olivia Gates DO Status:DEP ER Location: ED HPI History of Present Illness Chief Complaint: Upper Extremity Injury Narrative Narrative: 69-year-old female, mhjpe-piyz-veluvfly, has previous surgery for right rotator cuff tear and osteoarthritis. She relates history that in August she had surgery by Dr. Macario Sandoval, approximately 4 months ago. She has had continuing pain ever since. She states that he did arthroscopic surgery on her in attempt to patch her rotator cuff, but states that she really needs a right shoulder replacement but her insurance has not approved it as of yet. She has chronic pain in her right shoulder for which she takes Vicodin 3 times a day. She called squad today because of intractable right shoulder pain to the point where it is making her whole body tense. She denies any fevers or chills, no new symptoms from her chronic right shoulder pain. [facility] Medical History RAJNI (obstructive sleep apnea) Morbid [...] disease) Hypothyroidism HTN (hypertension) Chronic back pain Home Medications ???Medication ???Instructions ???Recorded ???Last Taken ???Type paroxetine HCl 40 mg tablet (Paxil) 40 mg PO DAILY depression 01/2908/21/24 06:30 History trazodone 50 mg tablet 50 mg PO QHS sleep 01/29/13 History esomeprazole magnesium 40 mg 40 mg PO BID GERD 05/16/14 5 04:29 History capsule,delayed release (Nexium) lorazepam 1 mg tablet 2 mg PO BID anxiety 10/11/1608/21 06:30 History cholecalciferol (vitamin D3) 1,250 50,000 units PO KEITA Vit D deficie ncy 05/20/17 12/19/21 History mcg (50,000 unit) capsule budesonide 180 mcg/actuation 2 puff inhalation BID SOB/wheezing 12/13/17 12/21/21 History breath activated powder inhaler (Pulmicort Flexhaler) losartan 50 mg tablet 50 mg PO DAILY blood pressure 06/0908/21/24 06:30 History montelukast 10 mg tablet 10 mg PO DAILY allergies 07/04/20 08/21/24 04:30 History albuterol sulfate 90 mcg/actuation 1 - 2 puff inhalation Q4H PRN AL N 04/13/21 Unknown Rx aerosol inhaler (Ventolin HFA) Wheezing #8.5 grams azelastine 137 mcg (0.1 %) nasal 2 spray intranasal BID PRN 2 12/21/21 History spray antihistamine albuterol sulfate 2.5 mg/3 mL 2.5 mg inhalation 4X/DAY PRN PRN 0 08/16/24 Unknown History (0.083 %) solution for nebulization shortness of breath or wheezing levothyroxine 88 mcg tablet 88 mcg PO DAILY 08/16/24 08/21/24 04:30 History Allergy/AdvReac Type Severity Reaction Status Date / Time No Known Allergies Allergy Verified 12/28/24 11:10 Family History Father Cancer Mother Cancer Sister Cancer Brother Cancer Surgical History S/P rotator cuff repair History of esophagogastroduodenoscopy (EGD) Hx of colonoscopy History of back surgery History of cholecystectomy History of hysterectomy History of back surgery History of hernia repair Social History household members: children housing: apartment Smoking Status: Never smoker second hand exposure: No alcohol intake: never substance use type: does not use ROS ROS ED ROS Narrative Review of systems positive for chronic right shoulder pain. No fevers or chills. Pain worse with movement. States pain is making her whole body tense. No relieving symptoms. EXAM Physical Exam Narrative Exam Narrative: Afebrile. Vital signs noted. Nontoxic-appearing. Cardiovascular examination regular rate and rhythm. Lungs clear to auscultation bilaterally. No crepitance of right shoulder. Full range of motion. Neurovasc intact distally with palpable radial pulse. No noted erythema. Const Vital Signs: 12/28/24 11:08 Temperature 98.3 F Temperature Source Oral Pulse Rate 73 Respiratory Rate 19 H Blood Pressure 155/128 H Blood Pressure Mean 137 Pulse Ox 98 Oxygen Delivery Method Room Air MDM MDM MDM Narrative Medical decision making na (more content not included)... Normal [facility] Shoulder min 2 Viewson 12-28 Shoulder min 2 Views [facility] Imaging Services [address] [place] [id number] Shoulder min 2 Views MR#: [id number] Acct: [id number] Name: NENA KRISHNAN Rep #: [id number] : 1955 F 69 From: Mahnaz Roman MD PCP: Dr. Olivia Gates DO Status: REG ER Study: Shoulder min 2 Views Date of Exam: 12/28/24 Exam# [id number] Ordering Dr: Gunnar Ocampo MD PROCEDURE: SHOULDER MIN 2 VIEWS 12/28/2024 REASON FOR EXAM: PAIN TECHNIQUE: Procedure Code: RAD Modality: DX Procedure: SHOULDER MIN 2 VIEWS Laterality: COMPARISON: None. FINDINGS: Bones: No acute bony abnormalities. Joints: Unremarkable. No dislocation. Soft tissues: No soft tissue abnormalities. RAD/Shoulder min 2 Views IMPRESSION: No acute osseous abnormalities. Reading Location: [facility] CC: Dr. Gunnar Ocampo MD; Dr. 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 Macario silva MD Age/Sex: 69/F Location: [facility] [place] Status: Signed Intake Vital Signs 10/28/24 11:19 [...] 1 - 2 puff inhalation Q4H PRN AL N 04/13/21 11/19/24 Rx aerosol inhaler (Ventolin [...] the decisions made by me, Dr. Macario Sandoval MD 11/19/24 0850. Part of today???s visit was documented [...] the pr (more content not included)... Normal [facility] Orthopedic Visit Reporton Orthopedic Visit Report [facility] [address] [place] [address] OFFICE VISIT Date of Service: 10/28/24 MR#: [id number] Acct: [id number] Name: NENA KRISHNAN Rep #: [id number] : 1955 Provider: Dr. Macario silva MD Age/Sex: 69/F Location: [facility] [place] Status: Signed Intake Vital Signs 09/03/24 10:11 [...] 1 - 2 puff inhalation Q4H PRN AL N 04/13/21 10/28/24 Rx aerosol inhaler (Ventolin [...] the decisions made by me, Dr. Macario Sandoval MD 10/28/24 0830. Part of today???s visit [...] last visi (more content not included)... Normal [facility] Orthopedic Visit Reporton Orthopedic Visit Report [facility] [address] [place] [address] 5 [place] [address] OFFICE VISIT Date of Service: 10/01/24 MR#: [id number] Acct: [id number] Name: NENA KRISHNAN Rep #: [id number] : 1955 Provider: Dr. Macario silva MD Age/Sex: 69/F Location: [facility] Status: Signed with Addenda ADDENDUM by Angelica [...] mg/mL suspension for injection Performing Provider: Macario Sandoval MD Performing Location: [facility] Administered by: Macario Sandoval MD on 10/01/24 11:21 Dose Route Admin Location Dispensed Lot Number Expiration Date NDC Man ufacturer 80 mg intra-articular right subacromial 2 mL [id number] 11/08/26 1663-3597-2 8 [employer] Date cc: * Signed Intake Vital [...] 1 - 2 puff inhalation Q4H PRN AL N 04/13/21 10/01/24 Rx aerosol inhaler (Ventolin [...] the decisions made by me, Dr. Macario Sandoval MD 10/01/24 0844. Part of today???s visit was documented by [ ], acting as scribe. NENA KRISHNAN is a 69 year old F here today for 6 weeks FU Right shoulder arthroscopy, keita (more content not included)... Normal [facility] Orthopedic Visit Reporton Orthopedic Visit Report [facility] [address] [place] [address] 5 [place] [address] OFFICE VISIT Date of Service: 09/03/24 MR#: [id number] Acct: [id number] Name: NENA KRISHNAN Rep #: [id number] : 1955 Provider: Dr. Macario silva MD Age/Sex: 69/F [facility] Status: Signed Intake Vital Signs 07/05/24 09:44 [...] PO TID PRN Pain 06/22/17 History 5mg-325mg ([place]) budesonide 180 mcg/actuation 2 puff inhalation BID SOB/wheezing 12/13/17 09/03/24 History breath activated powder inhaler (Pulmicort Flexhaler) losartan 50 mg tablet 50 mg PO DAILY blood pressure 06/0909/03/24 History montelukast 10 mg tablet 10 mg PO DAILY allergies 07/04/20 09/03/24 History albuterol sulfate 90 mcg/actuation 1 - 2 puff inhalation Q4H PRN AL N 04/13/21 09/03/24 Rx aerosol inhaler (Ventolin [...] the decisions made by me, Dr. Macario Sandoval MD 09/03/24 1011. Part of today???s visit [...] plan to go to physical therapy in [place] but not at [facility] Ortho Exam General General: Yes no acute [...] Plan Assessment (more content not included)... Normal [facility] Absolute lymphocyte countOrd ered By: Leana Vaca on 08-22-2024 Lymphocytes Auto (Unsp spec) [#/Vol] 2.61 10*3/uL 0.83-4.[address] [facility] Absolute neutrophil countOrd ered By: Leana Vaca on 08-22-2024 Neutrophils (Bld) [#/Vol] 12.6 10*3/uL High 2.0-7.[address] [facility] Anion gap in Serum or Plasma Ordered By: Leana Vaca on 08-22-2024 Anion gap [Moles/Vol] 10 mmol/L 08-22 [facility] Automated lymphocyte count a s percentage of total leukocytesOrdered By: White on 08-22-2024 Lymphocytes/100 WBC Auto (Unsp spec) 16.0 % Low 19-[address] [facility] BUN/creatinine ratioOrdered By: on 08-22-2024 Urea nitrogen/Creatinine [Mass ratio] 20.2 mg/mg High 10-[address] [facility] Basophil percentageOrdered B y: on 08-22-2024 Basophils/100 WBC (Bld) 0.1 % 0-[address] [facility] Bilirubin, totalOrdered By: White on 08-22-2024 Bilirubin [Mass/Vol] mg/dL 0.00-1.30 [facility] CBC W/Diff, Automatedon 08-08 Absolute Lymph 2.61 X10 3/uL Normal 0.83-4.[address] [facility] Comment on above: Performed By: #### L 500.4050, L100.0100 ####[facility] [address] [place], [address] Absolute Neut 12.6 X10 3/uL High 2.0-7.[address] [facility] Comment on above: Performed By: #### L 500.4050, L100.0100 ####[facility] [address] [place], [address] Basophils/100 WBC (Bld) 0.1 % Normal 0-[address] [facility] Comment on above: Performed By: #### L 500.4050, L100.0100 ####[facility] [address] [place], [address] Eosinophils/100 WBC (Bld) 0.0 % Normal 0-[address] [facility] Comment on above: Performed By: #### L 500.4050, L100.0100 ####[facility] [address] [place], [address] Erythrocyte distribution width (RBC) [Ratio] 16.8 % High 11.6-14.[address] [facility] Comment on above: Performed By: #### L 500.4050, L100.0100 ####[facility] [address] [place], [address] Hematocrit (Bld) [Volume fraction] 34.4 % Low 37-[address] [facility] Comment on above: Performed By: #### L 500.4050, L100.0100 ####[facility] [address] [place], [address] Hemoglobin (Bld) [Mass/Vol] 10.6 g/dL Low 12.0-15.[address] [facility] Comment on above: Performed By: #### L 500.4050, L100.0100 ####[facility] [address] [place], [address] IG% 0.500 Normal 0.0-0.[address] [facility] Comment on above: Result Comment: IG% - Immature Granulocytes (promyelocytes, myelocytes and metamyelocytes) > 1% indicates that a LEFT SHIFT is Present. Performed By: #### L 500.4050, L100.0100 ####[facility] [address] [place], [address] Lymphocytes/100 WBC (Bld) 16.0 % Low 19-[address] [facility] Comment on above: Performed By: #### L 500.4050, L100.0100 ####[facility] [address] [place], [address] MCH (RBC) [Entitic mass] 24.9 pg Low 27.0-32.[address] [facility] Comment on above: Performed By: #### L 500.4050, L100.0100 ####[facility] [address] [place], [address] MCHC (RBC) [Mass/Vol] 30.8 g/dL Low 32-36 [facility] Comment on above: Performed By: #### L 500.4050, L100.0100 ####[facility] [address] [place], [address] MCV (RBC) [Entitic vol] 80.8 fL Low 81-[address] [facility] Comment on above: Performed By: #### L 500.4050, L100.0100 ####[facility] [address] [place], [address] Monocytes/100 WBC (Bld) 6.3 % Normal 0-[address] [facility] Comment on above: Performed By: #### L 500.4050, L100.0100 ####[facility] [address] [place], [address] Neutrophils/100 WBC (Bld) 77.1 % High 47-[address] [facility] Comment on above: Performed By: #### L 500.4050, L100.0100 ####[facility] [address] [place], [address] Nucleated RBC (Bld) [#/Vol] 0 10*3/uL Normal 0-[address] [facility] Comment on above: Performed By: #### L 500.4050, L100.0100 ####[facility] [address] [place], [address] Platelet mean volume (Bld) [Entitic vol] 9.2 fL Normal 6.2-12.[address] [facility] Comment on above: Performed By: #### L 500.4050, L100.0100 ####[facility] [address] [place], [address] Platelets (Bld) [#/Vol] 343 10*3/uL Normal 150-[address] [facility] Comment on above: Performed By: #### L 500.4050, L100.0100 ####[facility] [address] [place], [address] RBC (Bld) [#/Vol] 4.26 10*6/uL Normal 4.2-5.4 [facility] Comment on above: Performed By: #### L 500.4050, L100.0100 ####[facility] [address] [place], [address] RDW SD 49.1 fl High 35.1-43.[address] [facility] Comment on above: Performed By: #### L 500.4050, L100.0100 ####[facility] [address] [place], [address] WBC (Bld) [#/Vol] 16.3 10*3/uL High 4.4-11.0 [facility] Comment on above: Performed By: #### L 500.4050, L100.0100 ####[facility] [address] [place], [address] Carbon dioxide, total [Moles /volume] in Central venous bloodOrdered By: Leana Vaca on 08-22-2024 CO2 [Moles/Vol] 24.5 mmol/L 21.0-32.[address] [facility] Chloride assayOrdered By: Cheryl Vaca on 08-22-2024 Chloride [Moles/Vol] 105 mmol/L 98-108 [facility] Comprehensive Metabolic Prof ilon 08-22-2024 Albumin [Mass/Vol] 3.4 g/dL Normal 3.4-4.8 [facility] Comment on above: Performed By: #### L 500.4050, L100.0100 ####[facility] [address] [place], [address] Albumin/Globulin [Mass ratio] 1.2 {ratio} Normal 0.9-2.[address] [facility] Comment on above: Performed By: #### L 500.4050, L100.0100 ####[facility] [address] [place], [address] ALK PHOS 81 U/L Normal 35-[address] [facility] Comment on above: Performed By: #### L 500.4050, L100.0100 ####[facility] [address] [place], [address] ALT [Catalytic activity/Vol] 10 U/L Normal <=[address] [facility] Comment on above: Performed By: #### L 500.4050, L100.0100 ####[facility] [address] [place], [address] AST [Catalytic activity/Vol] 20 U/L Normal <=[address] [facility] Comment on above: Performed By: #### L 500.4050, L100.0100 ####[facility] [address] [place], [address] BUN/CRE 20.2 RATIO High 10-[address] [facility] Comment on above: Performed By: #### L 500.4050, L100.0100 ####[facility] [address] [place], [address] Calcium [Mass/Vol] 8.7 mg/dL Normal 7.6-11.0 [facility] Comment on above: Performed By: #### L 500.4050, L100.0100 ####[facility] [address] [place], [address] Chloride [Moles/Vol] 105 mmol/L Normal 98-108 [facility] Comment on above: Performed By: #### L 500.4050, L100.0100 ####[facility] [address] [place], [address] CO2 [Moles/Vol] 24.5 mmol/L Normal 21.0-32.[address] [facility] Comment on above: Performed By: #### L 500.4050, L100.0100 ####[facility] [address] [place], [address] Creatinine [Mass/Vol] 0.81 mg/dL Normal 0.70-1.20 [facility] Comment on above: Performed By: #### L 500.4050, L100.0100 ####[facility] [address] [place], [address] ECRCL 110.19 ml/min Normal 50-[address] [facility] Comment on above: Performed By: #### L 500.4050, L100.0100 ####[facility] [address] [place], [address] GAP 10 Normal 5-[address] [facility] Comment on above: Performed By: #### L 500.4050, L100.0100 ####[facility] [address] [place], [address] GFR/1.73 sq M.predicted among non-blacks MDRD (S/P/Bld) [Vol rate/Area] 78 mL/min/{1.73_m2} Normal >[address] [facility] Comment on above: Result Comment: mL/m in/1.73m2 CKD-EPI Creatinine Equation (2020) Performed By: #### L 500.4050, L100.0100 ####[facility] [address] [place], [address] Globulin (S) [Mass/Vol] 2.8 g/dL Normal 2.2-4.[address] [facility] Comment on above: Performed By: #### L 500.4050, L100.0100 ####[facility] [address] [place], [address] Glucose [Mass/Vol] 149 mg/dL High 70-99 [facility] Comment on above: Performed By: #### L 500.4050, L100.0100 ####[facility] [address] [place], [address] Potassium [Moles/Vol] 3.8 mmol/L Normal 3.3-5.1 [facility] Comment on above: Performed By: #### L 500.4050, L100.0100 ####[facility] [address] [place], [address] Sodium [Moles/Vol] 139 mmol/L Normal 133-145 [facility] Comment on above: Performed By: #### L 500.4050, L100.0100 ####[facility] [address] [place], [address] T BILI < 0.15 Normal 0.00-1.[address] [facility] Comment on above: Performed By: #### L 500.4050, L100.0100 ####[facility] [address] [place], [address] T PROT 6.3 g/dL Normal 5.9-8.[address] [facility] Comment on above: Performed By: #### L 500.4050, L100.0100 ####[facility] [address] [place], [address] Urea nitrogen [Mass/Vol] 16 mg/dL Normal 4-[address] [facility] Comment on above: Performed By: #### L 500.4050, L100.0100 ####[facility] [address] [place], [address] Electrocardiogram reportOrde red By: Mino Gomez on 08-22-2024 EKG study [facility] [address] [place] [address] 12 Lead EKG 08/20/24 1340 MR#: [id number] Acct: [id number] Name: NENA KRISHNAN Rep #:[id number] : 1955 69 From: Mino esparza MD Attending Dr: Dr. Macario Sandoval MD Status: ADM IN Ordering Dr: Manolo Calvillo MD Date: Location: [facility] [place] Sex: F C Admitted: 08/21/24 Test Reason : PREOP Blood Pressure : */* mmHG Vent. Rate : 63 BPM Atrial Rate : 63 BPM P-R Int : 144 ms QRS Dur : 82 ms QT Int : 442 ms P-R-T Axes : 31 30 54 degrees QTcB Int : 452 ms Normal sinus rhythm Normal ECG Confirmed by Mino Gomez ([id number]), index editor CHARU GURROLA ([id number]) on 08/22/2024 10:09:38 AM Referred By: Macario Sandoval Confirmed By: Mino Gomez 08/22/24 1009 Date _ Mino Gomez MD CC: Dr. Olivia Gates DO; Dr. Macario Sandoval MD; Dr. Manolo Calvillo MD ~ Signed [facility] Other Phone: Eosinophil percentageOrdered By: Leana Lio on 08-22-2024 Eosinophils/100 WBC (Bld) 0.0 % 0-[address] [facility] Erythrocyte distribution wid th ratioOrdered By: Leana Lio on 08-22-2024 Erythrocyte distribution width (RBC) [Ratio] 16.8 % High 11.6-14.[address] [facility] Erythrocyte distribution wid th standard deviationOrdered By: Lio on 08-22-2024 Erythrocyte distribution width (RBC) [Ratio] 49.1 fl High 35.1-43.[address] [facility] Glomerular filtration rate ( GFR) estimation/1.73 sq m using serum, plasma, or whole bOrdered By: Leana Lio on 08-22-2024 GFR/1.73 sq M.predicted among non-blacks MDRD (S/P/Bld) [Vol rate/Area] 78 mL/min/{1.73_m2} >[address] [facility] Comment on above: mL/min/1.73m2 CKD-EP I Creatinine Equation (2020) Hematocrit Auto (Bld) [Volum e fraction]Ordered By: Leana Vaca on 08-22-2024 Hematocrit (Bld) [Volume fraction] 34.4 % Low 37-[address] [facility] Hemoglobin measurementOrdere d By: Leana Vaca on 08-22-2024 Hemoglobin (Bld) [Mass/Vol] 10.6 g/dL Low 12.0-15.[address] [facility] Immature granulocytes/100 WB C Auto (Bld)Ordered By: Leana Lio on 08-22-2024 Immature granulocytes/100 WBC (Bld) 0.500 % 0.0-0.[address] [facility] Comment on above: IG% - Immature Granu locytes (promyelocytes, myelocytes and metamyelocytes) > 1% indicates that a LEFT SHIFT is Present. Laboratory - Chemistry and C hemistry - challengeOrdered By: Leana Lio on 08-22-2024 AST [Catalytic activity/Vol] 20 U/L <[address] [facility] MCV (mean corpuscular volume ) determinationOrdered By: Lio on 08-22-2024 MCV (RBC) [Entitic vol] 80.8 fL Low 81-[address] [facility] Mean corpuscular hemoglobin (MCH) determinationOrdered By: 08-22-2024 MCH (RBC) [Entitic mass] 24.9 pg Low 27.0-32.[address] [facility] Mean corpuscular hemoglobin concentration (MCHC) determinationOrdered By: Lio on 08-22-2024 MCHC (RBC) [Mass/Vol] 30.8 g/dL Low 32-36 [facility] Mean platelet volume determi nationOrdered By: Lio 08-22-2024 Platelet mean volume (Bld) [Entitic vol] 9.2 fL 6.2-12.[address] [facility] Monocyte percentageOrdered B y: Lio on 08-22-2024 Monocytes/100 WBC (Bld) 6.3 % 0-[address] [facility] Neutrophil percentageOrdered By: Leana Lio on 08-22-2024 Neutrophils/100 WBC (Bld) 77.1 % High 47-[address] [facility] Nucleated red blood cell per centageOrdered By: Lio on 08-22-2024 Nucleated RBC/100 WBC (Bld) [Ratio] 0 % 0-[address] [facility] Platelet countOrdered By: Cheryl Vaca on 08-22-2024 Platelets (Bld) [#/Vol] 343 10*3/uL 150-[address] [facility] Potassium measurement (mass/ volume)Ordered By: Leana Lio on 08-22-2024 Potassium (Unsp spec) [Mass/Vol] 3.8 mmol/L 3.3-5.[address] [facility] RBC Auto (Bld) [#/Vol]Ordere d By: Leana Vaca on 08-22-2024 RBC (Bld) [#/Vol] 4.26 10*6/uL 4.2-5.4 [facility] Serum creatinine measurement (mass/volume)Ordered By: Leana Vaca on 08-22-2024 Creatinine [Mass/Vol] 0.81 mg/dL 0.70-1.20 [facility] Serum globulin measurementOr dered By: Leana Vaca on 08-22-2024 Globulin (S) [Mass/Vol] 2.8 g/dL 2.2-4.[address] [facility] Serum glucose measurement (m ass/volume)Ordered By: Leana Vaca on 08-22-2024 Glucose [Mass/Vol] 149 mg/dL High 70-99 [facility] Serum or plasma alanine mccartney otransferase (ALT) measurementOrdered By: Leana Vaca on 08-22-2024 ALT [Catalytic activity/Vol] 10 U/L <[address] [facility] Serum or plasma albumin swati urement (mass/volume)Ordered By: Leana Vaca on 08-22-2024 Albumin [Mass/Vol] 3.4 g/dL 3.4-4.8 [facility] Serum or plasma albumin/glob ulin mass ratioOrdered By: eLana Vaca on 08-22-2024 Albumin/Globulin [Mass ratio] 1.2 {ratio} 0.9-2.[address] [facility] Serum or plasma alkaline leonie sphatase measurementOrdered By: Leana Vaca 08-22-2024 ALP [Catalytic activity/Vol] 81 U/L 35-[address] [facility] Serum or plasma calcium swati urement (mass/volume)Ordered By: Leana Vaca on 08-22-2024 Calcium [Mass/Vol] 8.7 mg/dL 7.6-11.0 [facility] Serum or plasma urea nitroge n measurement (mass/volume)Ordered By: Leana Vaca on 08-22-2024 Urea nitrogen [Mass/Vol] 16 mg/dL 4-[address] [facility] Sodium levelOrdered By: Fabiolau mn Lio on 08-22-2024 Sodium [Moles/Vol] 139 mmol/L 133-145 [facility] Total proteinOrdered By: Fabiola umn White on 08-22-2024 Protein [Mass/Vol] 6.3 g/dL 5.9-8.4 [facility] White blood cell (WBC) count Ordered By: Leana White on 08-22-2024 WBC (Bld) [#/Vol] 16.3 10*3/uL High 4.4-11.0 [facility] Discharge Instructionon 08-08 Discharge Instruction [facility] Medical Records Department [address] [place] [address] Instructions for Home/Discharge Instructions 08/21/24 1038 MR#: [id number] Acct: [id number] Name: NENA KRISHNAN Rep #: [id number] : 1955 69 From: Macario Sandoval MD PCP: Dr. Olivia Gates, DO Status:REG [facility] Discharge Instructions Diet Discharge Diet: No restrictions [...] Up Care Please Follow Up With: Macario Sandoval MD When: next week Test Results: Test results from this visit will be discussed in further detail at your follow-up appointment, if applicable. Discharge Plan Admission Attending Provider: Macario Sandoval Primary Care Provider: Olivia Gates Instructions Patient Instructions: After Shoulder Arthroscopy Print Language: Libyan Discharge Orders/Prescriptions Prescriptions: New oxycodone-acetaminophen [Percocet] 5-325 [...] monday Rx Instructions: takes on monday hydrocodone-acetaminophen [[place]] 1 EACH tablet 1 ea PO TID [...] Gates DO [Primary Care Provider] - Macario Sandoval MD [Med Staff - Active Staff] - Disposition Disposition (needs filled in before D/C Order can be placed): Home, Self Care 08/21/24 1040 Macario Sandoval MD CC: Dr. Olivia Gates DO Signed [facility] MR/POSTOP.[facility] 08-21-2024 MR/POSTOP.[facility] Medical Records Department [address] [place] [address] Anesthesia Postop Eval I 08/21/24 1100 MR#: [id number] Acct: [id number] Name: NENA KRISHNAN Rep #: [id number] : 1955 69 From: Priscila Morales CRNA PCP: Dr. Olivia Gates DO Status:REG SDC Y Race: C Location: [address] Anesthesia: Postop Eval I Current Vital Signs [...] completed: Yes 08/21/24 1100 Date Priscila Morales [employer] Cosigner Signature: Date CC: Signed Normal [facility] MR/[id number] 08-21-2024 MR/POSTOPAN2 [facility] Medical Records Department [address] [place] [address] Anesthesia Postop Eval II 08/21/24 1143 MR#: [id number] Acct: [id number] Name: NENA KRISHNAN Rep #: [id number] : 1955 69 From: Troy Wilkins MD PCP: Dr. Olivia Gates, DO Status:REG SDC Y Race: C Location: [place] [address] Anesthesia Postop Eval I Sum Postop Eval Completion status Anesthesia document: Postop Eval 1 completed: Yes Anesthesia Postop Eval I Summary Anesthesia Postop Eval I Summary: Anesthesia Postop Eval I: Assessment Summary Airway patent Yes 08/21/24 11:00 [employer].HBARR Spontaneous unlabored Yes 08/21/24 11:00 [employer].HBARR respirations Mental status Awake 08/21/24 11:00 [employer].HBARR nausea No 08/21/24 11:00 [employer].HBARR Vomiting No 08/21/24 11:00 [employer].HBARR Anesthesia Postop Eval I: Fluid Summary Crystalloid volume administer 8,000 08/21/24 11:00 BISQUE KILN PLACER.HBARR (ml) Colloids volume administered ( ml) Blood Product volume administered (ml) Total IV fluid infused 8,000 08/21/24 11:00 BISQUE KILN PLACER.HBARR Anesthesia Postop Eval I: Summary Notes Anesthesia Complication No 08/21/24 11:00 BISQUE KILN PLACER.HBARR Anesthesia Complication Comment: Post-operative progress note Anesthesia: Postop Eval II Evaluation Mental status: Awake Pain Level: 0 nausea: No Vomiting: No 08/21/24 1143 Date Troy Holbrook Signature: Date CC: Signed Normal [facility] Operative Reporton 5 Operative Report [facility] Medical Records Department [address] [place] [id number] Operative Report 08/21/24 1028 MR#: [id number] Acct: [id number] Name: NENA KRISHNAN Rep #: [id number] : 1955 69 From: Macario Sandoval MD PCP: Dr. Olivia Gates, DO Status:[facility] Location: [place] [address] Problems Associated Problem List Diagnoses (1) Arthrosis [...] debridement, distal clavicle excision, rotator cuff repair hospital coder: Yes Neonatal Pediatric Nurse: graham Tasks completed by assistant quality manager: Retracting Additional minister assistant?: No Type of Anesthesia: Block,Regional and [...] dry s (more content not included)... Normal [facility] 12 Lead EKGon 08-20-2024 12 Lead EKG [facility] Cardiovascular Services [address] [place] [address] 12 Lead EKG 08/20/24 1340 MR#: [id number] Acct: [id number] Name: NENA KRISHNAN Rep #: [id number] : 1955 69 From: Mino Gomez MD Attending Dr: Dr. Macario Sandoval MD Status: AD M IN Ordering Dr: Manolo Calvillo MD Date: 08/20/24 Location: [facility] [place] Sex: F C Admitted: 08/21/24 Test Reason : PREOP Blood Pressure : */* mmHG Vent. Rate : 63 BPM Atrial Rate : 63 BPM P-R Int : 144 ms QRS Dur : 82 ms QT Int : 442 ms P-R-T Axes : 31 30 54 degrees QTcB Int : 452 ms Normal sinus rhythm Normal ECG Confirmed by Mino Gomez ([id number]), index editor CHARU GURROLA ([id number]) on 08/22/2024 10:09:38 AM Referred By: Macario Sandoval Confirmed By: Mino Gomez 08/22/24 1009 Date Mino Gomez MD CC: Dr. Olivia Gates DO; Dr. Macario Sandoval MD; Dr. Manolo Calvillo MD Signed Normal [facility] Absolute lymphocyte countOrd ered By: Olivia Gates on 08-20-2024 Lymphocytes Auto (Unsp spec) [#/Vol] 3.62 10*3/uL 0.83-4.[address] [facility] Absolute neutrophil countOrd ered By: Olivia Gates on 08-20-2024 Neutrophils (Bld) [#/Vol] 7.2 10*3/uL 2.0-7.[address] [facility] Anion gap in Serum or Plasma Ordered By: Olivia Gates on 08-20-2024 Anion gap [Moles/Vol] 12 mmol/L - [facility] Automated lymphocyte count a s percentage of total leukocytesOrdered By: Olivia Gates on 08-20-2024 Lymphocytes/100 WBC Auto (Unsp spec) 30.3 % -[address] [facility] BUN/creatinine ratioOrdered By: Olivia Gates on 08-20-2024 Urea nitrogen/Creatinine [Mass ratio] 14.9 mg/mg - [facility] Basic Metabolic Profile (BMP )on 08-20-2024 BUN/CRE 14.8 RATIO Normal - [facility] Comment on above: Performed By: #### L 500.2500, L501.9520, L100.0500 ####[facility] [address] [place], [address] Calcium [Mass/Vol] 8.9 mg/dL Normal 7.6-11.0 [facility] Comment on above: Performed By: #### L 500.2500, L501.9520, L100.0500 ####[facility] [address] [place], [address] Chloride [Moles/Vol] 103 mmol/L Normal 98-108 [facility] Comment on above: Performed By: #### L 500.2500, L501.9520, L100.0500 ####[facility] [address] [place], [address] CO2 [Moles/Vol] 23.9 mmol/L Normal 21.0-32.[address] [facility] Comment on above: Performed By: #### L 500.2500, L501.9520, L100.0500 ####[facility] [address] [place], [address] Creatinine [Mass/Vol] 0.86 mg/dL Normal 0.70-1.20 [facility] Comment on above: Performed By: #### L 500.2500, L501.9520, L100.0500 ####[facility] [address] [place], [address] GAP 12 Normal 5-[address] [facility] Comment on above: Performed By: #### L 500.2500, L501.9520, L100.0500 ####[facility] [address] [place], [address] GFR/1.73 sq M.predicted among non-blacks MDRD (S/P/Bld) [Vol rate/Area] 73 mL/min/{1.73_m2} Normal >[address] [facility] Comment on above: Result Comment: mL/m in/1.73m2 CKD-EPI Creatinine Equation (2020) Performed By: #### L 500.2500, L501.9520, L100.0500 ####[facility] [address] [place], [address] Glucose [Mass/Vol] 86 mg/dL Normal 70-99 [facility] Comment on above: Performed By: #### L 500.2500, L501.9520, L100.0500 ####[facility] [address] [place], [address] Potassium [Moles/Vol] 4.0 mmol/L Normal 3.3-5.1 [facility] Comment on above: Performed By: #### L 500.2500, L501.9520, L100.0500 ####[facility] [address] [place], [address] Sodium [Moles/Vol] 139 mmol/L Normal 133-145 [facility] Comment on above: Performed By: #### L 500.2500, L501.9520, L100.0500 ####[facility] [address] [place], [address] Urea nitrogen [Mass/Vol] 13 mg/dL Normal 4-[address] [facility] Comment on above: Performed By: #### L 500.2500, L501.9520, L100.0500 ####[facility] [address] [place], [address] Basophil percentageOrdered B y: Oliviaalli Gates on 08-20-2024 Basophils/100 WBC (Bld) 0.5 % 0-[address] [facility] Bilirubin, totalOrdered By: Olivia Pryordiana on 08-20-2024 Bilirubin [Mass/Vol] mg/dL 0.00-1.30 [facility] CBC W/Diff, Automatedon 08-08 Absolute Lymph 3.62 X10 3/uL Normal 0.83-4.[address] [facility] Comment on above: Performed By: #### L 506.0400, L100.0100, L500.4050, L501.07792, L501.9985, L501.9520 ####[facility] [address] [place], [address] Absolute Neut 7.2 X10 3/uL Normal 2.0-7.[address] [facility] Comment on above: Performed By: #### L 506.0400, L100.0100, L500.4050, L501.51772, L501.9985, L501.9520 ####[facility] [address] [place], [address] Basophils/100 WBC (Bld) 0.5 % Normal 0-[address] [facility] Comment on above: Performed By: #### L 506.0400, L100.0100, L500.4050, L501.74843, L501.9985, L501.9520 ####[facility] [address] [place], [address] Eosinophils/100 WBC (Bld) 0.9 % Normal 0-[address] [facility] Comment on above: Performed By: #### L 506.0400, L100.0100, L500.4050, L501.57038, L501.9985, L501.9520 ####[facility] [address] [place], [address] Erythrocyte distribution width (RBC) [Ratio] 16.8 % High 11.6-14.[address] [facility] Comment on above: Performed By: #### L 506.0400, L100.0100, L500.4050, L501.54599, L501.9985, L501.9520 ####[facility] [address] [place], [address] Hematocrit (Bld) [Volume fraction] 38.4 % Normal 37-[address] [facility] Comment on above: Performed By: #### L 506.0400, L100.0100, L500.4050, L501.53698, L501.9985, L501.9520 ####[facility] [address] [place], [address] Hemoglobin (Bld) [Mass/Vol] 11.7 g/dL Low 12.0-15.[address] [facility] Comment on above: Performed By: #### L 506.0400, L100.0100, L500.4050, L501.21261, L501.9985, L501.9520 ####[facility] [address] [place], [address] IG% 0.700 Normal 0.0-0.[address] [facility] Comment on above: Result Comment: IG% - Immature Granulocytes (promyelocytes, myelocytes and metamyelocytes) > 1% indicates that a LEFT SHIFT is Present. Performed By: #### L 506.0400, L100.0100, L500.4050, L501.25206, L501.9985, L501.9520 ####[facility] [address] [place], [address] Lymphocytes/100 WBC (Bld) 30.3 % Normal 19-[address] [facility] Comment on above: Performed By: #### L 506.0400, L100.0100, L500.4050, L501.22506, L501.9985, L501.9520 ####[facility] [address] [place], [address] MCH (RBC) [Entitic mass] 24.5 pg Low 27.0-32.[address] [facility] Comment on above: Performed By: #### L 506.0400, L100.0100, L500.4050, L501.45081, L501.9985, L501.9520 ####[facility] [address] [place], [address] MCHC (RBC) [Mass/Vol] 30.5 g/dL Low 32-36 [facility] Comment on above: Performed By: #### L 506.0400, L100.0100, L500.4050, L501.44388, L501.9985, L501.9520 ####[facility] [address] [place], [address] MCV (RBC) [Entitic vol] 80.5 fL Low 81-[address] [facility] Comment on above: Performed By: #### L 506.0400, L100.0100, L500.4050, L501.70240, L501.9985, L501.9520 ####[facility] [address] [place], [address] Monocytes/100 WBC (Bld) 7.0 % Normal 0-[address] [facility] Comment on above: Performed By: #### L 506.0400, L100.0100, L500.4050, L501.22687, L501.9985, L501.9520 ####[facility] [address] [place], [address] Neutrophils/100 WBC (Bld) 60.6 % Normal 47-[address] [facility] Comment on above: Performed By: #### L 506.0400, L100.0100, L500.4050, L501.21899, L501.9985, L501.9520 ####[facility] [address] [place], [address] Nucleated RBC (Bld) [#/Vol] 0 10*3/uL Normal 0-[address] [facility] Comment on above: Performed By: #### L 506.0400, L100.0100, L500.4050, L501.57126, L501.9985, L501.9520 ####[facility] [address] [place], [address] Platelet mean volume (Bld) [Entitic vol] 9.8 fL Normal 6.2-12.[address] [facility] Comment on above: Performed By: #### L 506.0400, L100.0100, L500.4050, L501.08380, L501.9985, L501.9520 ####[facility] [address] [place], [address] Platelets (Bld) [#/Vol] 392 10*3/uL Normal 150-[address] [facility] Comment on above: Performed By: #### L 506.0400, L100.0100, L500.4050, L501.17635, L501.9985, L501.9520 ####[facility] [address] [place], [address] RBC (Bld) [#/Vol] 4.77 10*6/uL Normal 4.2-5.4 [facility] Comment on above: Performed By: #### L 506.0400, L100.0100, L500.4050, L501.45986, L501.9985, L501.9520 ####[facility] [address] [place], [address] RDW SD 48.6 fl High 35.1-43.[address] [facility] Comment on above: Performed By: #### L 506.0400, L100.0100, L500.4050, L501.63452, L501.9985, L501.9520 ####[facility] [address] [place], [address] WBC (Bld) [#/Vol] 11.9 10*3/uL High 4.4-11.0 [facility] Comment on above: Performed By: #### L 506.0400, L100.0100, L500.4050, L501.86155, L501.9985, L501.9520 ####[facility] [address] [place], [address] CBC-Complete Blood Cnt No Di ffon 08-20-2024 Erythrocyte distribution width (RBC) [Ratio] 16.8 % High 11.6-14.[address] [facility] Comment on above: Performed By: #### L 500.2500, L501.9520, L100.0500 ####[facility] [address] [place], [address] Hematocrit (Bld) [Volume fraction] 38.3 % Normal 37-[address] [facility] Comment on above: Performed By: #### L 500.2500, L501.9520, L100.0500 ####[facility] [address] [place], [address] Hemoglobin (Bld) [Mass/Vol] 11.7 g/dL Low 12.0-15.[address] [facility] Comment on above: Performed By: #### L 500.2500, L501.9520, L100.0500 ####[facility] [address] [place], [address] MCH (RBC) [Entitic mass] 24.6 pg Low 27.0-32.[address] [facility] Comment on above: Performed By: #### L 500.2500, L501.9520, L100.0500 ####[facility] [address] [place], [address] MCHC (RBC) [Mass/Vol] 30.5 g/dL Low 32-36 [facility] Comment on above: Performed By: #### L 500.2500, L501.9520, L100.0500 ####[facility] [address] [place], [address] MCV (RBC) [Entitic vol] 80.5 fL Low 81-[address] [facility] Comment on above: Performed By: #### L 500.2500, L501.9520, L100.0500 ####[facility] [address] [place], [address] Platelet mean volume (Bld) [Entitic vol] 10.0 fL Normal 6.2-12.[address] [facility] Comment on above: Performed By: #### L 500.2500, L501.9520, L100.0500 ####[facility] [address] [place], [address] Platelets (Bld) [#/Vol] 390 10*3/uL Normal 150-[address] [facility] Comment on above: Performed By: #### L 500.2500, L501.9520, L100.0500 ####[facility] [address] [place], [address] RBC (Bld) [#/Vol] 4.76 10*6/uL Normal 4.2-5.4 [facility] Comment on above: Performed By: #### L 500.2500, L501.9520, L100.0500 ####[facility] [address] [place], [address] RDW SD 48.8 fl High 35.1-43.[address] [facility] Comment on above: Performed By: #### L 500.2500, L501.9520, L100.0500 ####[facility] [address] [place], [address] WBC (Bld) [#/Vol] 12.4 10*3/uL High 4.4-11.0 [facility] Comment on above: Performed By: #### L 500.2500, L501.9520, L100.0500 ####[facility] [address] [place], [address] Carbon dioxide, total [Moles /volume] in Central venous bloodOrdered By: Olivia Gates on 08-20-2024 CO2 [Moles/Vol] 23.8 mmol/L 21.0-32.[address] [facility] Chloride assayOrdered By: Fina Gates on 08-20-2024 Chloride [Moles/Vol] 104 mmol/L 98-108 [facility] Comprehensive Metabolic Prof ilon 08-20-2024 Albumin [Mass/Vol] 3.6 g/dL Normal 3.4-4.8 [facility] Comment on above: Performed By: #### L 506.0400, L100.0100, L500.4050, L501.22566, L501.9985, L501.9520 ####[facility] [address] [place], [address] Albumin/Globulin [Mass ratio] 1.2 {ratio} Normal 0.9-2.[address] [facility] Comment on above: Performed By: #### L 506.0400, L100.0100, L500.4050, L501.29784, L501.9985, L501.9520 ####[facility] [address] [place], [address] ALK PHOS 92 U/L Normal 35-[address] [facility] Comment on above: Performed By: #### L 506.0400, L100.0100, L500.4050, L501.92224, L501.9985, L501.9520 ####[facility] [address] [place], [address] ALT [Catalytic activity/Vol] 11 U/L Normal <=[address] [facility] Comment on above: Performed By: #### L 506.0400, L100.0100, L500.4050, L501.07955, L501.9985, L501.9520 ####[facility] [address] [place], [address] AST [Catalytic activity/Vol] 17 U/L Normal <=[address] [facility] Comment on above: Performed By: #### L 506.0400, L100.0100, L500.4050, L501.30166, L501.9985, L501.9520 ####[facility] [address] [place], [address] BUN/CRE 14.9 RATIO Normal 10-[address] [facility] Comment on above: Performed By: #### L 506.0400, L100.0100, L500.4050, L501.01337, L501.9985, L501.9520 ####[facility] [address] [place], [address] Calcium [Mass/Vol] 8.9 mg/dL Normal 7.6-11.0 [facility] Comment on above: Performed By: #### L 506.0400, L100.0100, L500.4050, L501.03862, L501.9985, L501.9520 ####[facility] [address] [place], [address] Chloride [Moles/Vol] 104 mmol/L Normal 98-108 [facility] Comment on above: Performed By: #### L 506.0400, L100.0100, L500.4050, L501.20099, L501.9985, L501.9520 ####[facility] [address] [place], [address] CO2 [Moles/Vol] 23.8 mmol/L Normal 21.0-32.[address] [facility] Comment on above: Performed By: #### L 506.0400, L100.0100, L500.4050, L501.30604, L501.9985, L501.9520 ####[facility] [address] [place], [address] Creatinine [Mass/Vol] 0.85 mg/dL Normal 0.70-1.20 [facility] Comment on above: Performed By: #### L 506.0400, L100.0100, L500.4050, L501.31632, L501.9985, L501.9520 ####[facility] [address] [place], [address] GAP 12 Normal 5-[address] [facility] Comment on above: Performed By: #### L 506.0400, L100.0100, L500.4050, L501.73624, L501.9985, L501.9520 ####[facility] [address] [place], [address] GFR/1.73 sq M.predicted among non-blacks MDRD (S/P/Bld) [Vol rate/Area] 73 mL/min/{1.73_m2} Normal >[address] [facility] Comment on above: Result Comment: mL/m in/1.73m2 CKD-EPI Creatinine Equation (2020) Performed By: #### L 506.0400, L100.0100, L500.4050, L501.97937, L501.9985, L501.9520 ####[facility] [address] [place], [address] Globulin (S) [Mass/Vol] 3.1 g/dL Normal 2.2-4.[address] [facility] Comment on above: Performed By: #### L 506.0400, L100.0100, L500.4050, L501.26485, L501.9985, L501.9520 ####[facility] [address] [place], [address] Glucose [Mass/Vol] 87 mg/dL Normal 70-99 [facility] Comment on above: Performed By: #### L 506.0400, L100.0100, L500.4050, L501.82357, L501.9985, L501.9520 ####[facility] [address] [place], [address] Potassium [Moles/Vol] 4.0 mmol/L Normal 3.3-5.1 [facility] Comment on above: Performed By: #### L 506.0400, L100.0100, L500.4050, L501.39703, L501.9985, L501.9520 ####[facility] [address] [place], [address] Sodium [Moles/Vol] 139 mmol/L Normal 133-145 [facility] Comment on above: Performed By: #### L 506.0400, L100.0100, L500.4050, L501.74040, L501.9985, L501.9520 ####[facility] [address] [place], [address] T BILI < 0.15 Normal 0.00-1.[address] [facility] Comment on above: Performed By: #### L 506.0400, L100.0100, L500.4050, L501.14372, L501.9985, L501.9520 ####[facility] [address] [place], [address] T PROT 6.7 g/dL Normal 5.9-8.[address] [facility] Comment on above: Performed By: #### L 506.0400, L100.0100, L500.4050, L501.41579, L501.9985, L501.9520 ####[facility] [address] [place], [address] Urea nitrogen [Mass/Vol] 13 mg/dL Normal 4-[address] [facility] Comment on above: Performed By: #### L 506.0400, L100.0100, L500.4050, L501.49661, L501.9985, L501.9520 ####[facility] [address] [place], [address] Eosinophil percentageOrdered By: Olivia Gates on 08-20-2024 Eosinophils/100 WBC (Bld) 0.9 % 0-[address] [facility] Erythrocyte distribution wid th ratioOrdered By: Olivia Gates on 08-20-2024 Erythrocyte distribution width (RBC) [Ratio] 16.8 % High 11.6-14.[address] [facility] Erythrocyte distribution wid th standard deviationOrdered By: Olivia Gates on 08-20-2024 Erythrocyte distribution width (RBC) [Ratio] 48.6 fl High 35.1-43.[address] [facility] Free T3on 08-20-2024 Free T3 [Mass/Vol] 2.1 pg/mL Low 2.18-3.98 [facility] Comment on above: Performed By: #### L 506.0400, L100.0100, L500.4050, L501.60326, L501.9985, L501.9520 ####[facility] [address] [place], [place], [id number] Free I7Swgikal By: Olivia boss on 08-20-2024 Free T3 [Mass/Vol] 2.1 pg/mL Low 2.18-3.98 [facility] Glomerular filtration rate ( GFR) estimation/1.73 sq m using serum, plasma, or whole bOrdered By: Olivia Gates on 08-20-2024 GFR/1.73 sq M.predicted among non-blacks MDRD (S/P/Bld) [Vol rate/Area] 73 mL/min/{1.73_m2} >[address] [facility] Comment on above: mL/min/1.73m2 CKD-EP I Creatinine Equation (2020) Hematocrit Auto (Bld) [Volum e fraction]Ordered By: Olivia Gates on 08-20-2024 Hematocrit (Bld) [Volume fraction] 38.4 % 37-[address] [facility] Hemoglobin A1con 08-20-2024 HbA1c (Bld) [Mass fraction] 6.1 % High <=5.[address] [facility] Comment on above: Result Comment: Norm al < 5.7 % Prediabetic 5.7 - 6.4 % Diabetic >or= 6.5 % Please note range changes. Performed By: #### L 506.0400, L100.0100, L500.4050, L501.94795, L501.9985, L501.9520 ####[facility] [address] [place], [place], [address] Hemoglobin A1c percentageOrd ered By: Olivia Gates on 08-20-2024 HbA1c (Bld) [Mass fraction] 6.1 % High <5.[address] [facility] Comment on above: Normal < 5.7 % Predi abetic 5.7 - 6.4 % Diabetic >or= 6.5 % Please note range changes. Hemoglobin measurementOrdere d By: Olivia Gates on 08-20-2024 Hemoglobin (Bld) [Mass/Vol] 11.7 g/dL Low 12.0-15.[address] [facility] Immature granulocytes/100 WB C Auto (Bld)Ordered By: Olivia Gates on 08-20-2024 Immature granulocytes/100 WBC (Bld) 0.700 % 0.0-0.[address] [facility] Comment on above: IG% - Immature Granu locytes (promyelocytes, myelocytes and metamyelocytes) > 1% indicates that a LEFT SHIFT is Present. Laboratory - Chemistry and C hemistry - challengeOrdered By: Olivia Gates on 08-20-2024 AST [Catalytic activity/Vol] 17 U/L <[address] [facility] MCV (mean corpuscular volume ) determinationOrdered By: Olivia Gates on 08-20-2024 MCV (RBC) [Entitic vol] 80.5 fL Low 81-[address] [facility] MR/PAT.ANEon 08-20-2024 MR/PAT.ANE [facility] Medical Records Department [address] [place] [address] PAT - Anesthesia 08/20/24 1548 MR#: [id number] Acct: [id number] Name: NENA KRISHNAN Rep #: [id number] : 1955 69 From: Tenzin Pedroza MD PCP: Dr. 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 Hx Hospitalization No 08/16/24 13:41 Any Problems [...] take am of surgery PONV PONV - seam checker: PONV - seam checker Female Yes 08/16/24 13:41 HX of Motion [...] 07/05/24 09:44 Respiratory Assessment Respiratory Assessment - seam checker: Respiratory Tract Infection Hx - seam checker Hx Respiratory Tract Infection No 08/16/24 13:41 STOP Sleep Apnea STOP Sleep Apnea - seam checker: STOP Sleep Apnea - seam checker Hx Hypertension Yes: CONTROLLED WITH MED 08/16/24 [...] Tobacco Use History Tobacco Use History - seam checker: Tobacco Use History - seam checker Tobacco Use Smoking Status Never smoker 08/16/24 13:41 Hx Tobacco Use No 08/16/24 13:41 Years Smoking Packs Smoked per Day Smoking Cessation Date was within the last 15 years Hx Smoking Cessation Date Hx Smoking Cessation No 08/16/24 13:41 Counseling Hematologic Medial History Hematologic Hx - seam checker: 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 Hx of Blood Transfusion No 08/16/24 13:41 [...] confused, unrespo /Reproduction History /Reproductive History - seam checker: /Reproductive Hx- seam checker Hx Now No 08/16/24 13:41 Gestational Age (in weeks): EDC: Hx Hx Para Hx Section SAB No 08/16/24 13:41 Active Medications Active Medications: Current Medications Generic Name Dose Route Start Last Admin Trade Name Freq PRN Reason Stop Dose Admin Cefazolin Sodium 2 gm/ Sodium 110 mls @ 150 mls/hr 08/21/24 09:00 Chloride IV 08/21/24 09:43 INTRAOP ONE [facility] Medical History Wears glasses Wears dentures Post-menopausal [...] GERD (gastr (more content not included)... Normal [facility] Mean corpuscular hemoglobin (MCH) determinationOrdered By: Olivia Gates on 08-20-2024 MCH (RBC) [Entitic mass] 24.5 pg Low 27.0-32.[address] [facility] Mean corpuscular hemoglobin concentration (MCHC) determinationOrdered By: Olivia Gates on 08-20-2024 MCHC (RBC) [Mass/Vol] 30.5 g/dL Low 32-36 [facility] Mean platelet volume determi nationOrdered By: Olivia Gates on 08-20-2024 Platelet mean volume (Bld) [Entitic vol] 9.8 fL 6.2-12.[address] [facility] Monocyte percentageOrdered B y: Olivia Gates on 08-20-2024 Monocytes/100 WBC (Bld) 7.0 % 0-[address] [facility] Neutrophil percentageOrdered By: Olivia Gates on 08-20-2024 Neutrophils/100 WBC (Bld) 60.6 % 47-[address] [facility] Nucleated red blood cell per centageOrdered By: Olivia Gates on 08-20-2024 Nucleated RBC/100 WBC (Bld) [Ratio] 0 % 0-[address] [facility] Platelet countOrdered By: Fina Gates on 08-20-2024 Platelets (Bld) [#/Vol] 392 10*3/uL 150-[address] [facility] Potassium measurement (mass/ volume)Ordered By: Olivia Gates on 08-20-2024 Potassium (Unsp spec) [Mass/Vol] 4.0 mmol/L 3.3-5.[address] [facility] RBC Auto (Bld) [#/Vol]Ordere d By: Olivia Gates on 08-20-2024 RBC (Bld) [#/Vol] 4.77 10*6/uL 4.2-5.4 [facility] Serum creatinine measurement (mass/volume)Ordered By: Olivia Gates on 08-20-2024 Creatinine [Mass/Vol] 0.85 mg/dL 0.70-1.20 [facility] Serum globulin measurementOr dered By: Olivia Gates on 08-20-2024 Globulin (S) [Mass/Vol] 3.1 g/dL 2.2-4.[address] [facility] Serum glucose measurement (m ass/volume)Ordered By: Olivia Gates on 08-20-2024 Glucose [Mass/Vol] 87 mg/dL 70-99 [facility] Serum or plasma alanine mccartney otransferase (ALT) measurementOrdered By: Olivia Gates on 08-20-2024 ALT [Catalytic activity/Vol] 11 U/L <[address] [facility] Serum or plasma albumin swati urement (mass/volume)Ordered By: Olivia Gates on 08-20-2024 Albumin [Mass/Vol] 3.6 g/dL 3.4-4.8 [facility] Serum or plasma albumin/glob ulin mass ratioOrdered By: Olivia Gates on 08-20-2024 Albumin/Globulin [Mass ratio] 1.2 {ratio} 0.9-2.[address] [facility] Serum or plasma alkaline leonie sphatase measurementOrdered By: Olivia Gates on 08-20-2024 ALP [Catalytic activity/Vol] 92 U/L 35-[address] [facility] Serum or plasma calcium swati urement (mass/volume)Ordered By: Olivia Gates on 08-20-2024 Calcium [Mass/Vol] 8.9 mg/dL 7.6-11.0 [facility] Serum or plasma urea nitroge n measurement (mass/volume)Ordered By: Olivia Gates on 08-20-2024 Urea nitrogen [Mass/Vol] 13 mg/dL 4-[address] [facility] Sodium levelOrdered By: Olivia Gates on 08-20-2024 Sodium [Moles/Vol] 139 mmol/L 133-145 [facility] T4 Free Directon 08-20-2024 T4 FREE DIRECT 1.10 ng/dL Normal 0.76-1.[address] [facility] Comment on above: Performed By: #### L 506.0400, L100.0100, L500.4050, L501.28450, L501.9985, L501.9520 ####[facility] [address] [place], [place], [id number] T4 freeOrdered By: Olivia boss on 08-20-2024 Free T4 [Mass/Vol] 1.10 ng/dL 0.76-1.46 [facility] TSH DL <= 0.005 mIU/L QnOrde red By: Manolo Calvillo on 08-20-2024 TSH Qn 2.620 uIU/mL 0.300-4.[address] [facility] TSH DL <= 0.005 mIU/L QnOrde red By: Olivia Gates on 08-20-2024 TSH Qn 2.500 uIU/mL 0.300-4.[address] [facility] Thyroid Stim Hormone (TSH)on 08-20-2024 TSH 2.500 uIU/mL Normal 0.300-4.[address] [facility] Comment on above: Performed By: #### L 506.0400, L100.0100, L500.4050, L501.22385, L501.9985, L501.9520 ####[facility] [address] [place], [address] TSH 2.620 uIU/mL Normal 0.300-4.[address] [facility] Comment on above: Performed By: #### L 500.2500, L501.9520, L100.0500 ####[facility] [address] [place], [address] Total proteinOrdered By: Kaylee Gates on 08-20-2024 Protein [Mass/Vol] 6.7 g/dL 5.9-8.4 [facility] White blood cell (WBC) count Ordered By: Olivia Gates on 08-20-2024 WBC (Bld) [#/Vol] 11.9 10*3/uL High 4.4-11.0 [facility] Urine Cultureon 08-15-2024 [facility] Mixed Gram Positive Organisms [facility] Count 11,000-25,000 [facility] Mixed contaminants. Submit a new specimen if indicated. Normal [facility] Comment on above: Performed By: #### M 100.2200 ####[facility] [address] [place], [address] Urine cultureOrdered By: Kaylee Gtaes on 08-13-2024 Bacteria identified Cx Nom (U) Positive Abnormal [facility] Orthopedic Visit Reporton Orthopedic Visit Report [facility] [address] [place] [address] [address] [place], [place] [address] OFFICE VISIT Date of Service: 07/05/24 MR#: [id number] Acct: [id number] Name: NENA KRISHNAN Rep #: [id number] : 1955 Provider: Dr. Macario silva MD Age/Sex: 69/F Location: [facility] Status: Signed Intake Vital Signs 05/30/24 13:25 [...] PO TID PRN Pain 06/22/17 History 5mg-325mg ([place]) budesonide 180 mcg/actuation 2 puff inhalation BID [...] 1 - 2 puff inhalation Q4H PRN AL N 04/13/21 07/05/24 Rx aerosol inhaler (Ventolin [...] the decisions made by me, Dr. Macario Sandoval MD 07/05/24 0955. Part of today???s visit was documented by [...] as well as home-based exercises. Supplemental Info [facility] Imaging Services [address] [place] [address] Upper Ext Joint Only(Routine) MR#: [id number] Acct: [id number] Name: NENA KRISHNAN Rep #: [id number] : 1955 F 69 From: Manpreet Schwarz DO PCP: Dr. Olivia Gates DO Status: REG CLI Study: Upper Ext Joint Only(Routine) Date of Exam: 06/26/24 Exam# [id number] Ordering Dr: Macario Sandoval MD PROCEDURE: MRI right shoulder without IV [...] the pos (more content not included)... Normal [facility] Magnetic resonance imaging r eportOrdered By: Manpreet Schwarz on 06-26-2024 Study report [facility] [address] [place], [place] [address] Upper Ext Joint Only(Routine) MR#: [id number] Acct: [id number] Name: NENA KRISHNAN Rep #: [id number] : 1955 F 69 From: Ruben Schwarz DO PCP: Dr. Olivia Gates DO Status: REG CLI Study:Upper Ext Joint Only(Routine) Date of Exam: 06/26/24 Exam# [id number] Ordering Dr: Macario Sandoval MD PROCEDURE: MRI right shoulder without IV [...] which is diffusely diminutive. No paralabral cysts. Oyie-hd-cdqzuhno diffuse thinning of the glenoid cartilage. High-grade [...] capsulitis. Please correlate clinically. Reading Location: [facility] CC: Dr. Olivia Gates DO; Dr. 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 Olivia Gates DO Status: REG CLI Study: Upper Ext Joint Only(Routine) Date of Exam: 0 06/26/24 Exam# [id number] Ordering Dr: Macario Sandoval MD PROCEDURE: MRI right shoulder without IV [...] which is diffusely diminutive. No paralabral cysts. Pvcx-ue-maxduqfm diffuse thinning of the glenoid cartilage. High-grade [...] capsulitis. Please correlate clinically. Reading Location: [facility] CC: Dr. Olivia Gates DO; Dr. 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 Macario silva MD Age/Sex: 69/F Location: [facility] Status: Signed with Addenda ADDENDUM by Angelica [...] mg/mL suspension for injection Performing Provider: Macario Sandoval MD Performing Location: [facility] Administered by: Macario Sandoval MD on 05/30/24 14:17 Dose Route Admin Location Dispensed Lot Number Expiration Date [facility] Man ufacturer 80 mg intra-articular right subacromial 2 mL [id number] 08/08/25 1026-2759-2 8 [employer] Date cc: * Signed Intake Vital [...] History (Updated 05/30/24 @ 10:35 by Macario Sandoval MD) Right shoulder pain Right rib fracture [...] the decisions made by me, Dr. Macario Sandoval MD 05/30/24 1034. Part of today???s visit [...] the ED. >> Patient is a 69-year-old djetq-begb-pvgkqwrc female. She presents because of injury that [...] the shoulder or chest wall. Supplemental Info [facility] Services [address] [place] [address] Shoulder min 2 Views MR#: [id number] Acct: [id number] Name: NENA KRISHNAN Rep #: [id number] : 1955 F 69 From: Juanjose Hensley MD PCP: Dr. Olivia Gates, DO Status: PRE ER Study: Shoulder min 2 Views Date of Exam: 05/18/24 Exam# [id number] Ordering Dr: Provider,Ed P. PROCEDURE: SHOULDER MIN [...] Juanjose Hensley (more content not included)... Normal [facility] Emergency Department Summary on 05-18-2024 Emergency Department Summary [facility] Medical Records Department [address] [place] [address] Emergency Department Summary 05/18/24 MR#: [id number] Acct: [id number] Name: NENA KRISHNAN Rep #: [id number] : 1955 69 From: Federico Arango MD [...] Weakness Narrative Narrative: Patient is a 69-year-old tyury-gnbo-aqgexpub female. She presents because of injury that [...] similar symptoms: No Recent Illness/Hospitalization: No PFSH [facility] Medical History Rheumatoid arthritis Pulmonary hypertension Bronchitis [...] 1 - 2 puff inhalation Q6H PRN AL N 05/23/17 06/16/18 Rx aerosol inhaler Asthma ##1 hydrocodone-acetaminophen 5-325mg 1 ea PO TID PRN Pain 06/22/17 History 5mg-325mg ([place]) budesonide 180 mcg/actuation 2 puff inhalation BID [...] 1 - 2 puff inhalation Q4H PRN AL N 04/13/21 Unknown Rx aerosol inhaler (Ventolin [...] 70 Respirator (more content not included)... Normal [facility] Shoulder min 2 Viewson 05-18 Shoulder min 2 Views [facility] Imaging [facility] [address] [place] [address] Shoulder min 2 Views MR#: [id number] Acct: [id number] Name: NENA KRISHNAN Rep #: [id number] : 1955 F 69 From: Juanjose Hensley MD PCP: Dr. Olivia Gates DO Status: PRE ER Study: Shoulder min 2 Views Date of Exam: 05/18/24 Exam# [id number] Ordering Dr: Provider,Ed P. PROCEDURE: SHOULDER MIN 2 VIEWS REASON FOR EXAM: Pain TECHNIQUE: 4 views right shoulder COMPARISON: None. FINDINGS: Scattered degenerative changes. Osseous structures intact in the shoulder. No dislocations. Bone loss. Minimally displaced posterolateral right-sided rib fracture, potentially affecting 6th and 7th ribs. No underlying pneumothorax definitively seen. RAD/Shoulder min 2 Views IMPRESSION: As above. Reading Location: [facility] CC: Dr. Olivia Gates DO; ED PHYSICIAN PROVIDER Gas Meter Mechanic: Signed Normal [facility] CBC W/Diff, Automatedon 11-2 Absolute Lymph 3.92 X10 3/uL Normal 0.83-4.[address] [facility] Comment on above: Performed By: #### L 100.0100, L501.9520, L500.4050, L506.0400, L501.28153 ####[facility] [address] [place], [address] Absolute Neut 4.9 X10 3/uL Normal 2.0-7.[address] [facility] Comment on above: Performed By: #### L 100.0100, L501.9520, L500.4050, L506.0400, L501.83727 ####[facility] [address] [place], [address] Basophils/100 WBC (Bld) 0.8 % Normal 0-[address] [facility] Comment on above: Performed By: #### L 100.0100, L501.9520, L500.4050, L506.0400, L501.74434 ####[facility] [address] [place], [address] Eosinophils/100 WBC (Bld) 1.9 % Normal 0-[address] [facility] Comment on above: Performed By: #### L 100.0100, L501.9520, L500.4050, L506.0400, L501.30907 ####[facility] [address] [place], [address] Erythrocyte distribution width (RBC) [Ratio] 15.9 % High 11.6-14.[address] [facility] Comment on above: Performed By: #### L 100.0100, L501.9520, L500.4050, L506.0400, L501.28746 ####[facility] [address] [place], [address] Hematocrit (Bld) [Volume fraction] 38.2 % Normal 37-[address] [facility] Comment on above: Performed By: #### L 100.0100, L501.9520, L500.4050, L506.0400, L501.66767 ####[facility] [address] [place], [address] Hemoglobin (Bld) [Mass/Vol] 11.8 g/dL Low 12.0-15.[address] [facility] Comment on above: Performed By: #### L 100.0100, L501.9520, L500.4050, L506.0400, L501.14288 ####[facility] [address] [place], [address] IG% 0.500 Normal 0.0-0.[address] [facility] Comment on above: Result Comment: IG% - Immature Granulocytes (promyelocytes, myelocytes and metamyelocytes) > 1% indicates that a LEFT SHIFT is Present. Performed By: #### L 100.0100, L501.9520, L500.4050, L506.0400, L501.36569 ####[facility] [address] [place], [address] Lymphocytes/100 WBC (Bld) 40.1 % Normal 19-[address] [facility] Comment on above: Performed By: #### L 100.0100, L501.9520, L500.4050, L506.0400, L501.38265 ####[facility] [address] [place], [address] MCH (RBC) [Entitic mass] 24.9 pg Low 27.0-32.[address] [facility] Comment on above: Performed By: #### L 100.0100, L501.9520, L500.4050, L506.0400, L501.88356 ####[facility] [address] [place], [address] MCHC (RBC) [Mass/Vol] 30.9 g/dL Low 32-36 [facility] Comment on above: Performed By: #### L 100.0100, L501.9520, L500.4050, L506.0400, L501.47378 ####[facility] [address] [place], [address] MCV (RBC) [Entitic vol] 80.8 fL Low 81-[address] [facility] Comment on above: Performed By: #### L 100.0100, L501.9520, L500.4050, L506.0400, L501.27236 ####[facility] [address] [place], [address] Monocytes/100 WBC (Bld) 6.6 % Normal 0-[address] [facility] Comment on above: Performed By: #### L 100.0100, L501.9520, L500.4050, L506.0400, L501.87381 ####[facility] [address] [place], [address] Neutrophils/100 WBC (Bld) 50.1 % Normal 47-[address] [facility] Comment on above: Performed By: #### L 100.0100, L501.9520, L500.4050, L506.0400, L501.13711 ####[facility] [address] [place], [address] Nucleated RBC (Bld) [#/Vol] 0 10*3/uL Normal 0-[address] [facility] Comment on above: Performed By: #### L 100.0100, L501.9520, L500.4050, L506.0400, L501.63720 ####[facility] [address] [place], [address] Platelet mean volume (Bld) [Entitic vol] 9.7 fL Normal 6.2-12.[address] [facility] Comment on above: Performed By: #### L 100.0100, L501.9520, L500.4050, L506.0400, L501.63702 ####[facility] [address] [place], [address] Platelets (Bld) [#/Vol] 397 10*3/uL Normal 150-[address] [facility] Comment on above: Performed By: #### L 100.0100, L501.9520, L500.4050, L506.0400, L501.01037 ####[facility] [address] [place], [address] RBC (Bld) [#/Vol] 4.73 10*6/uL Normal 4.2-5.4 [facility] Comment on above: Performed By: #### L 100.0100, L501.9520, L500.4050, L506.0400, L501.48227 ####[facility] [address] [place], [address] RDW SD 46.5 fl High 35.1-43.[address] [facility] Comment on above: Performed By: #### L 100.0100, L501.9520, L500.4050, L506.0400, L501.79836 ####[facility] [address] [place], [address] WBC (Bld) [#/Vol] 9.8 10*3/uL Normal 4.4-11.0 [facility] Comment on above: Performed By: #### L 100.0100, L501.9520, L500.4050, L506.0400, L501.64898 ####[facility] [address] [place], [address] Comprehensive Metabolic [facility] 02-28-2024 Albumin [Mass/Vol] 3.4 g/dL Normal 3.2-5.0 [facility] Comment on above: Performed By: #### L 100.0100, L501.9520, L500.4050, L506.0400, L501.70919 ####[facility] [address] [place], [address] Albumin/Globulin [Mass ratio] 0.8 {ratio} Low 0.9-2.[address] [facility] Comment on above: Performed By: #### L 100.0100, L501.9520, L500.4050, L506.0400, L501.00276 ####[facility] [address] [place], [address] ALK P 90 U/L Normal 45-[address] [facility] Comment on above: Performed By: #### L 100.0100, L501.9520, L500.4050, L506.0400, L501.85275 ####[facility] [address] [place], [address] ALT [Catalytic activity/Vol] 13 U/L Normal 13-[address] [facility] Comment on above: Performed By: #### L 100.0100, L501.9520, L500.4050, L506.0400, L501.27433 ####[facility] [address] [place], [address] AST [Catalytic activity/Vol] 16 U/L Normal 15-[address] [facility] Comment on above: Performed By: #### L 100.0100, L501.9520, L500.4050, L506.0400, L501.80464 ####[facility] [address] [place], [address] Bilirubin [Mass/Vol] 0.20 mg/dL Normal 0.20-1.00 [facility] Comment on above: Result Comment: For patients on eltrombopag therapy, use of Dimension [place] TBIL is not recommended. Performed By: #### L 100.0100, L501.9520, L500.4050, L506.0400, L501.65901 ####[facility] [address] [place], [address] BUN/CRE 18.8 RATIO Normal 10-[address] [facility] Comment on above: Performed By: #### L 100.0100, L501.9520, L500.4050, L506.0400, L501.92140 ####[facility] [address] [place], [address] CA,Total 8.8 mg/dL Normal 8.5-10.[address] [facility] Comment on above: Performed By: #### L 100.0100, L501.9520, L500.4050, L506.0400, L501.60507 ####[facility] [address] [place], [address] Chloride [Moles/Vol] 106 mmol/L Normal 98-107 [facility] Comment on above: Performed By: #### L 100.0100, L501.9520, L500.4050, L506.0400, L501.23699 ####[facility] [address] [place], [address] CO2 [Moles/Vol] 27.0 mmol/L Normal 21.0-32.[address] [facility] Comment on above: Performed By: #### L 100.0100, L501.9520, L500.4050, L506.0400, L501.93537 ####[facility] [address] [place], [address] Creatinine [Mass/Vol] 0.80 mg/dL Normal 0.55-1.02 [facility] Comment on above: Result Comment: The validity of the calculated GFR GFRAA in patients over 70 years has not been determined. Clinical correlation is essential. Performed By: #### L 100.0100, L501.9520, L500.4050, L506.0400, L501.23253 ####[facility] [address] [place], [address] EST GFR - AA 91 mL/min Normal >[address] [facility] Comment on above: Result Comment: Afri can French GFR Calc Performed By: #### L 100.0100, L501.9520, L500.4050, L506.0400, L501.89768 ####[facility] [address] [place], [address] GAP 6 Normal 5-[address] [facility] Comment on above: Performed By: #### L 100.0100, L501.9520, L500.4050, L506.0400, L501.98274 ####[facility] [address] [place], [address] GFR/1.73 sq M.predicted among non-blacks MDRD (S/P/Bld) [Vol rate/Area] 75 mL/min/{1.73_m2} Normal >[address] [facility] Comment on above: Result Comment: Non- GFR Calc Performed By: #### L 100.0100, L501.9520, L500.4050, L506.0400, L501.68770 ####[facility] [address] [place], [address] Globulin (S) [Mass/Vol] 4.1 g/dL Normal 2.2-4.[address] [facility] Comment on above: Performed By: #### L 100.0100, L501.9520, L500.4050, L506.0400, L501.40982 ####[facility] [address] [place], [address] Glucose [Mass/Vol] 99 mg/dL Normal 74-106 [facility] Comment on above: Performed By: #### L 100.0100, L501.9520, L500.4050, L506.0400, L501.29825 ####[facility] [address] [place], [address] Potassium [Moles/Vol] 4.0 mmol/L Normal 3.5-5.1 [facility] Comment on above: Performed By: #### L 100.0100, L501.9520, L500.4050, L506.0400, L501.84401 ####[facility] [address] [place], [address] Sodium [Moles/Vol] 138 mmol/L Normal 136-145 [facility] Comment on above: Performed By: #### L 100.0100, L501.9520, L500.4050, L506.0400, L501.23339 ####[facility] [address] [place], [address] T PROT 7.5 g/dL Normal 6.4-8.[address] [facility] Comment on above: Performed By: #### L 100.0100, L501.9520, L500.4050, L506.0400, L501.25286 ####[facility] [address] [place], [address] Urea nitrogen [Mass/Vol] 15 mg/dL Normal 7-[address] [facility] Comment on above: Performed By: #### L 100.0100, L501.9520, L500.4050, L506.0400, L501.11529 ####[facility] [address] [place], [address] Free T3on 02-28-2024 Free T3 [Mass/Vol] 2.4 pg/mL Normal 2.18-3.98 [facility] Comment on above: Performed By: #### L 100.0100, L501.9520, L500.4050, L506.0400, L501.80678 ####[facility] [address] [place], [address] T4 Free Directon 02-28-2024 T4 FREE DIRECT 1.02 ng/dL Normal 0.76-1.[address] [facility] Comment on above: Performed By: #### L 100.0100, L501.9520, L500.4050, L506.0400, L501.24821 ####[facility] [address] [place], [address] Thyroid Stim Hormone (TSH)on 02-28-2024 TSH 2.440 uIU/mL Normal 0.358-3.[address] [facility] Comment on above: Performed By: #### L 100.0100, L501.9520, L500.4050, L506.0400, L501.70749 ####[facility] [address] [place], [address] Absolute lymphocyte countOrd ered By: Yvon Jacobo on 08-21-2023 Lymphocytes Auto (Unsp spec) [#/Vol] 4.10 10*3/uL 0.83-4.[address] [facility] Automated lymphocyte count a s percentage of total leukocytesOrdered By: Yvon Jacobo on 08-21-2023 Lymphocytes/100 WBC Auto (Unsp spec) 40.5 % 19-[address] [facility] Basophil percentageOrdered B y: Yvon Jacobo on 08-21-2023 Basophils/100 WBC (Bld) 0.6 % 0-[address] [facility] Chloride [Moles/Vol] 109 mmol/L 98-107 [facility] Eosinophils/100 WBC (Bld) 2.0 % 0-[address] [facility] Glucose [Mass/Vol] 114 mg/dL 74-106 [facility] Comment on above: Fasting Glucose resu lt from 100 to 125 mg/dL suggests IMPAIRED HOMEOSTASIS per A.D.A. criteria. Hemoglobin (Bld) [Mass/Vol] 11.4 g/dL 12.0-15.[address] [facility] Monocytes/100 WBC (Bld) 6.8 % 0-[address] [facility] Neutrophils (Bld) [#/Vol] 5.0 10*3/uL 2.0-7.[address] [facility] Neutrophils/100 WBC (Bld) 49.7 % 47-[address] [facility] Potassium [Moles/Vol] 3.7 mmol/L 3.5-5.1 [facility] Sodium [Moles/Vol] 140 mmol/L 136-145 [facility] WBC (Bld) [#/Vol] 10.1 10*3/uL 4.4-11.0 [facility] Determination of erythrocyte mean corpuscular volume (MCV)Ordered By: Yvon Jacobo on 08-21-2023 MCV (RBC) [Entitic vol] 82.0 fL 81-[address] [facility] Erythrocyte distribution wid th ratioOrdered By: Yvon Jacobo on 08-21-2023 Erythrocyte distribution width (RBC) [Ratio] 16.0 % 11.6-14.[address] [facility] Erythrocyte distribution wid th standard deviationOrdered By: Yvon Jacobo on 08-21-2023 Erythrocyte distribution width (RBC) [Entitic vol] 47.8 fL 35.1-43.[address] [facility] Hematocrit Auto (Bld) [Volum e fraction]Ordered By: Yvon Jacobo on 08-21-2023 Hematocrit (Bld) [Volume fraction] 36.5 % 37-[address] [facility] Immature granulocytes/100 WB C Auto (Bld)Ordered By: Yvon Jacobo on 08-21-2023 Immature granulocytes/100 WBC (Bld) 0.400 % 0.0-0.[address] [facility] Comment on above: IG% - Immature Granu locytes (promyelocytes, myelocytes and metamyelocytes) > 1% indicates that a LEFT SHIFT is Present. Laboratory - Chemistry and C hemistry - challengeOrdered By: Yvon Jacobo on 08-21-2023 CO2 [Moles/Vol] 26.0 mmol/L 21.0-32.[address] [facility] Natriuretic peptide B (Bld) [Mass/Vol] 43.8 pg/mL 0-[address] [facility] Urea nitrogen/Creatinine [Mass ratio] 19.6 mg/mg 10-[address] [facility] Laboratory - Hematology and Cell countsOrdered By: Yvon Jacobo on 08-21-2023 MCH (RBC) [Entitic mass] 25.6 pg 27.0-32.[address] [facility] MCHC (RBC) [Mass/Vol] 31.2 g/dL 32-36 [facility] Nucleated RBC/100 WBC (Bld) [Ratio] 0 % 0-[address] [facility] Platelet mean volume (Bld) [Entitic vol] 9.3 fL 6.2-12.[address] [facility] Platelets (Bld) [#/Vol] 333 10*3/uL 150-[address] [facility] No Panel InformationOrdered By: Yvon Jacobo on 08-21-2023 Estimated GFR (MDRD) Amer 83 mL/min >[address] [facility] Comment on above: GFR Calc Estimated GFR (MDRD) Non-Af Amer 69 mL/min >[address] [facility] Comment on above: Non- GFR Calc Troponin I High Sensitivity 4 pg/mL 3.0-54.[address] [facility] Comment on above: Please Note: New Beatriz t Units and Gender Specific Reference Ranges. For more information see Policy Stat Procedure [facility] High Sensitivity Troponin (TNIH) and attachments. RBC Auto (Bld) [#/Vol]Ordere d By: Yvon Jacobo on 08-21-2023 RBC (Bld) [#/Vol] 4.45 10*6/uL 4.2-5.4 [facility] Serum or plasma calcium swati urement (mass/volume)Ordered By: Yvon Jacobo on 08-21-2023 Calcium [Mass/Vol] 8.6 mg/dL 8.5-10.1 [facility] Serum or plasma creatinine m easurement (mass/volume)Ordered By: Yvon Jacobo on 08-21-2023 Creatinine [Mass/Vol] 0.87 mg/dL 0.55-1.02 [facility] Comment on above: The validity of the calculated GFR & GFRAA in patients over 70 years has not been determined. Clinical correlation is essential. Serum or plasma urea nitroge n measurement (mass/volume)Ordered By: Yvon Jacobo on 08-21-2023 Urea nitrogen [Mass/Vol] 17 mg/dL 7-[address] [facility] Thin prep Papanicolaou smear with manual screeningOrdered By: Yvon Jacobo on 08-21-2023 Thin prep Papanicolaou smear with manual screening 5 - [facility] Absolute lymphocyte countOrd ered By: Olivia Gates on 04-24-2023 Lymphocytes Auto (Unsp spec) [#/Vol] 2.25 10*3/uL 0.83-4.[address] [facility] Basophil percentageOrdered B y: Olivia Gates on 04-24-2023 Basophils/100 WBC (Bld) 0.6 % 0-[address] [facility] Bilirubin [Mass/Vol] 0.20 mg/dL 0.20-1.00 [facility] Comment on above: For patients on eltr ombopag therapy, use of Dimension [place] TBIL is not recommended. Chloride [Moles/Vol] 106 mmol/L 98-107 [facility] Cholesterol [Mass/Vol] 188 mg/dL <200 [facility] Comment on above: <200 mg/dL Desirable 200-240 mg/dL Borderline >240 mg/dL High Risk Eosinophils/100 WBC (Bld) 1.6 % 0-[address] [facility] Glucose [Mass/Vol] 101 mg/dL 74-106 [facility] Comment on above: Fasting Glucose resu lt from 100 to 125 mg/dL suggests IMPAIRED HOMEOSTASIS per A.D.A. criteria. Neutrophils (Bld) [#/Vol] 6.5 10*3/uL 2.0-7.[address] [facility] Neutrophils/100 WBC (Bld) 67.3 % 47-[address] [facility] Potassium [Moles/Vol] 4.1 mmol/L 3.5-5.1 [facility] Protein [Mass/Vol] 7.2 g/dL 6.4-8.2 [facility] Sodium [Moles/Vol] 139 mmol/L 136-145 [facility] Triglyceride [Mass/Vol] 184 mg/dL <[address] [facility] Comment on above: The drugs N-Acetylcy steine and Metamizole may falsely depress this assay.Serum Triglycerides Reference Interval Normal <150 mg/dL Borderline high 150 - 199 mg/dL High 200 - 499 mg/dL Very High > or = 500 mg/dL WBC (Bld) [#/Vol] 9.6 10*3/uL 4.4-11.0 [facility] Blood erythrocytes count (nu mber/volume)Ordered By: Olivia Gates on 04-24-2023 RBC (Bld) [#/Vol] 4.71 10*6/uL 4.2-5.4 [facility] Blood hemoglobin measurement (mass/volume)Ordered By: Olivia Gates on 04-24-2023 Hemoglobin (Bld) [Mass/Vol] 11.9 g/dL 12.0-15.[address] [facility] Blood lymphocytes/100 leukoc ytesOrdered By: Olivia Gates on 04-24-2023 Lymphocytes/100 WBC (Bld) 23.4 % 19-[address] [facility] Blood monocytes/100 leukocyt esOrdered By: Olivia Gates on 04-24-2023 Monocytes/100 WBC (Bld) 6.7 % 0-[address] [facility] Blood platelet mean volumeOr dered By: Olivia Gates on 04-24-2023 Platelet mean volume (Bld) [Entitic vol] 9.8 fL 6.2-12.[address] [facility] Determination of erythrocyte mean corpuscular volume (MCV)Ordered By: Olivia Gates on 04-24-2023 MCV (RBC) [Entitic vol] 83.0 fL 81-[address] [facility] Erythrocyte sedimentation ra teOrdered By: Olivia Gates on 04-24-2023 ESR (Bld) [Velocity] 46 mm/h 0-30 [facility] Hematocrit Auto (Bld) [Volum e fraction]Ordered By: Olivia Gates on 04-24-2023 Hematocrit (Bld) [Volume fraction] 39.1 % 37-[address] [facility] Laboratory - Chemistry and C hemistry - challengeOrdered By: Olivia Gates on 04-24-2023 ALP [Catalytic activity/Vol] 83 U/L 45-[address] [facility] ALT [Catalytic activity/Vol] 17 U/L 13-[address] [facility] CO2 [Moles/Vol] 26.0 mmol/L 21.0-32.[address] [facility] Free T4 [Mass/Vol] 0.86 ng/dL 0.76-1.46 [facility] Globulin (S) [Mass/Vol] 3.9 g/dL 2.2-4.[address] [facility] Urea nitrogen/Creatinine [Mass ratio] 16.5 mg/mg 10-[address] [facility] Laboratory - Hematology and Cell countsOrdered By: Olivia Gates on 04-24-2023 Erythrocyte distribution width (RBC) [Entitic vol] 46.6 fL 35.1-43.[address] [facility] Erythrocyte distribution width (RBC) [Ratio] 15.4 % 11.6-14.[address] [facility] Immature granulocytes/100 WBC (Bld) 0.400 % 0.0-0.[address] [facility] Comment on above: IG% - Immature Granu locytes (promyelocytes, myelocytes and metamyelocytes) > 1% indicates that a LEFT SHIFT is Present. MCH (RBC) [Entitic mass] 25.3 pg 27.0-32.[address] [facility] Nucleated RBC/100 WBC (Bld) [Ratio] 0 % 0-[address] [facility] MCHC Auto (RBC) [Mass/Vol]Or dered By: Olivia Gates on 04-24-2023 MCHC (RBC) [Mass/Vol] 30.4 g/dL 32-36 [facility] No Panel InformationOrdered By: Olivia Gates on 04-24-2023 Estimated GFR (MDRD) Amer 79 mL/min >[address] [facility] Comment on above: GFR Calc Estimated GFR (MDRD) Non-Af Amer 65 mL/min >[address] [facility] Comment on above: Non- GFR Calc Free Triiodothyronine (T3) pg/dL 2.0 pg/mL 2.18-3.[address] [facility] Thyroid Stimulating Hormone (TSH) 5.99 uIU/mL 0.358-3.[address] [facility] Platelets bldOrdered By: Kaylee Gates on 04-24-2023 Platelets (Bld) [#/Vol] 342 10*3/uL 150-[address] [facility] Serum or plasma C reactive p rotein measurement (mass/volume)Ordered By: Olivia Gates on 04-24-2023 CRP [Mass/Vol] 4.19 mg/L 0.0-3.[address] [facility] Comment on above: C-Reactive Protein ( CRP) provides useful information for thediagnosis, therapy and monitoring of inflammatory processesand associated diseases. For the evaluation of Relative Riskfor Cardiovascular Disease, a High Sensitivity CRP (HSCRP)should be ordered. Serum or plasma albumin swati urement (mass/volume)Ordered By: Olivia Gates on 04-24-2023 Albumin [Mass/Vol] 3.3 g/dL 3.2-5.0 [facility] Serum or plasma albumin/glob ulin mass ratioOrdered By: Olivia Gates on 04-24-2023 Albumin/Globulin [Mass ratio] 0.8 {ratio} 0.9-2.[address] [facility] Serum or plasma calcium swati urement (mass/volume)Ordered By: Olivia Gates on 04-24-2023 Calcium [Mass/Vol] 8.6 mg/dL 8.5-10.1 [facility] Serum or plasma cholesterol in HDL measurement (mass/volume)Ordered By: Olivia Gates on 04-24-2023 Cholesterol in HDL [Mass/Vol] 54 mg/dL >[address] [facility] Comment on above: The drugs N-Acetylcy steine and Metamizole may falsely depress this assay. Reference Range HDL <40 mg/dL Low HDL Cholesterol HDL >or= 60 mg/dL High HDL Cholesterol Serum or plasma cholesterol in VLDL measurement (mass/volume)Ordered By: Olivia Gates on 04-24-2023 Cholesterol in VLDL [Mass/Vol] 37 mg/dL 5-[address] [facility] Serum or plasma creatinine m easurement (mass/volume)Ordered By: Olivia Gates on 04-24-2023 Creatinine [Mass/Vol] 0.91 mg/dL 0.55-1.02 [facility] Comment on above: The validity of the calculated GFR & GFRAA in patients over 70 years has not been determined. Clinical correlation is essential. Serum or plasma low density lipoprotein (LDL) cholesterol measurement (mass/volume)Ordered By: Olivia Gates on 04-24-2023 Cholesterol in LDL [Mass/Vol] 97 mg/dL 0-[address] [facility] Serum or plasma urea nitroge n measurement (mass/volume)Ordered By: Olivia Gates on 04-24-2023 Urea nitrogen [Mass/Vol] 15 mg/dL 7-[address] [facility] Thin prep Papanicolaou smear with manual screeningOrdered By: Olivia Gates on 04-24-2023 Thin prep Papanicolaou smear with manual screening 15 U/L 15-[address] [facility] Thin prep Papanicolaou smear with manual screening 7 5-[address] [facility] Absolute lymphocyte countOrd ered By: Lisa Villagran on 02-24-2023 Lymphocytes Auto (Unsp spec) [#/Vol] 4.07 10*3/uL 0.83-4.[address] [facility] Basophil percentageOrdered B y: Lisa Villagran on 02-24-2023 Basophil percentage 0 SEEN /hpf 0-5 [facility] Basophils/100 WBC (Bld) 0.8 % 0-[address] [facility] Bilirubin [Mass/Vol] 0.20 mg/dL 0.20-1.00 [facility] Comment on above: For patients on eltr ombopag therapy, use of Dimension [place] TBIL is not recommended. Chloride [Moles/Vol] 108 mmol/L 98-107 [facility] Eosinophils/100 WBC (Bld) 1.3 % 0-[address] [facility] Glucose [Mass/Vol] 103 mg/dL 74-106 [facility] Comment on above: Fasting Glucose resu lt from 100 to 125 mg/dL suggests IMPAIRED HOMEOSTASIS per A.D.A. criteria. Neutrophils (Bld) [#/Vol] 5.5 10*3/uL 2.0-7.[address] [facility] Neutrophils/100 WBC (Bld) 52.1 % 47-[address] [facility] Potassium [Moles/Vol] 3.6 mmol/L 3.5-5.1 [facility] Protein [Mass/Vol] 7.7 g/dL 6.4-8.2 [facility] Sodium [Moles/Vol] 141 mmol/L 136-145 [facility] WBC (Bld) [#/Vol] 10.6 10*3/uL 4.4-11.0 [facility] Bilirubin Test strip Ql (U)O rdered By: Lisa Villagran on 02-24-2023 Bilirubin Ql (U) Negative Negative [facility] Blood erythrocytes count (nu mber/volume)Ordered By: Lisa Villagran on 02-24-2023 RBC (Bld) [#/Vol] 5.13 10*6/uL 4.2-5.4 [facility] Blood hemoglobin measurement (mass/volume)Ordered By: Lisa Villagran on 02-24-2023 Hemoglobin (Bld) [Mass/Vol] 13.1 g/dL 12.0-15.[address] [facility] Blood lymphocytes/100 leukoc ytesOrdered By: Lisa Villagran on 02-24-2023 Lymphocytes/100 WBC (Bld) 38.4 % 19-[address] [facility] Blood monocytes/100 leukocyt esOrdered By: Lisa Villagran on 02-24-2023 Monocytes/100 WBC (Bld) 7.0 % 0-[address] [facility] Blood platelet mean volumeOr dered By: Lisa Villagran on 02-24-2023 Platelet mean volume (Bld) [Entitic vol] 9.6 fL 6.2-12.[address] [facility] Determination of erythrocyte mean corpuscular volume (MCV)Ordered By: Lisa Villagran on 02-24-2023 MCV (RBC) [Entitic vol] 82.7 fL 81-[address] [facility] Hematocrit Auto (Bld) [Volum e fraction]Ordered By: Lisa Villagran on 02-24-2023 Hematocrit (Bld) [Volume fraction] 42.4 % 37-[address] [facility] Ketones Test strip Ql (U)Ord ered By: Lisa Villagran on 02-24-2023 Ketones Ql (U) 5 mg/dl Negative [facility] Laboratory - Chemistry and C hemistry - challengeOrdered By: Lisa Villagran on 02-24-2023 ALP [Catalytic activity/Vol] 81 U/L 45-[address] [facility] ALT [Catalytic activity/Vol] 20 U/L 13-[address] [facility] CO2 [Moles/Vol] 28.0 mmol/L 21.0-32.[address] [facility] Globulin (S) [Mass/Vol] 4.3 g/dL 2.2-4.[address] [facility] Lipase [Catalytic activity/Vol] 25 U/L 13-[address] [facility] Comment on above: Please note:LIPASE r evised reference range effective 22. New Lipase methodology. Expected to produce lower values than the previous assay method. NEW Reference Range: 13 - 75 U/L Urea nitrogen/Creatinine [Mass ratio] 17.1 mg/mg 10-[address] [facility] Laboratory - Hematology and Cell countsOrdered By: Lisa Villagran on 02-24-2023 Erythrocyte distribution width (RBC) [Entitic vol] 48.0 fL 35.1-43.[address] [facility] Erythrocyte distribution width (RBC) [Ratio] 15.8 % 11.6-14.[address] [facility] Immature granulocytes/100 WBC (Bld) 0.400 % 0.0-0.[address] [facility] Comment on above: IG% - Immature Granu locytes (promyelocytes, myelocytes and metamyelocytes) > 1% indicates that a LEFT SHIFT is Present. MCH (RBC) [Entitic mass] 25.5 pg 27.0-32.[address] [facility] Nucleated RBC/100 WBC (Bld) [Ratio] 0 % 0-[address] [facility] MCHC Auto (RBC) [Mass/Vol]Or dered By: Lisa Villagran on 02-24-2023 MCHC (RBC) [Mass/Vol] 30.9 g/dL 32-36 [facility] Mucus LM Ql (Urine sed)Order ed By: Lisa Villagran on 02-24-2023 Mucus Ql (Urine sed) 0 SEEN /hpf [facility] Nitrite Test strip Ql (U)Ord ered By: Lisa Villagran on 02-24-2023 Nitrite Ql (U) Negative Negative [facility] No Panel InformationOrdered By: Lisa Villagran on 02-24-2023 Estimated Creatinine Clearance Calc 47.89 ml/min [facility] Estimated GFR (MDRD) Amer 77 mL/min >[address] [facility] Comment on above: GFR Calc Estimated GFR (MDRD) Non-Af Amer 63 mL/min >[address] [facility] Comment on above: Non- GFR Calc Thyroid Stimulating Hormone (TSH) 3.50 uIU/mL 0.358-3.[address] [facility] Troponin I High Sensitivity 7 pg/mL 3.0-54.[address] [facility] Comment on above: Please Note: New Beatriz t Units and Gender Specific Reference Ranges. For more information see Policy Stat Procedure [facility] High Sensitivity Troponin (TNIH) and attachments. Platelets bldOrdered By: Claire Villagran on 02-24-2023 Platelets (Bld) [#/Vol] 344 10*3/uL 150-[address] [facility] Protein Test strip Ql (U)Ord ered By: Lisa Villagran on 02-24-2023 Protein Ql (U) Negative Negative [facility] Serum or plasma albumin swati urement (mass/volume)Ordered By: Lisa Villagran on 02-24-2023 Albumin [Mass/Vol] 3.4 g/dL 3.2-5.0 [facility] Serum or plasma albumin/glob ulin mass ratioOrdered By: Lisa Villagran on 02-24-2023 Albumin/Globulin [Mass ratio] 0.8 {ratio} 0.9-2.[address] [facility] Serum or plasma calcium swati urement (mass/volume)Ordered By: Lisa Villagran on 02-24-2023 Calcium [Mass/Vol] 9.1 mg/dL 8.5-10.1 [facility] Serum or plasma creatinine m easurement (mass/volume)Ordered By: Lisa Villagran on 02-24-2023 Creatinine [Mass/Vol] 0.93 mg/dL 0.55-1.02 [facility] Comment on above: The validity of the calculated GFR & GFRAA in patients over 70 years has not been determined. Clinical correlation is essential. Serum or plasma urea nitroge n measurement (mass/volume)Ordered By: Lisa Villagran on 02-24-2023 Urea nitrogen [Mass/Vol] 16 mg/dL 7-[address] [facility] Squamous epithelial cells de tection in urine sediment by light microscopyOrdered By: Lisa Villagran on 02-24-2023 Epithelial cells.squamous LM Ql (Urine sed) 0-5 SEEN /hpf 5-[address] [facility] Thin prep Papanicolaou smear with manual screeningOrdered By: Lisa Villagran on 02-24-2023 Thin prep Papanicolaou smear with manual screening 20 U/L 15-[address] [facility] Thin prep Papanicolaou smear with manual screening 5 5-[address] [facility] Urine blood detectionOrdered By: Lisa Villagran on 02-24-2023 RBC Ql (U) Negative Negative [facility] RBC Ql (U) 0 SEEN /hpf 0-[address] [facility] Urine clarityOrdered By: Claire Villagran on 02-24-2023 Clarity (U) Clear Clear [facility] Urine color determinationOrd ered By: Lisa Villagran on 02-24-2023 Color (U) Yellow Yellow [facility] Urine glucose detectionOrder ed By: Lisa Villagran on 02-24-2023 Glucose Ql (U) Normal mg/dl Normal [facility] Urine leukocyte esterase det ection by dipstickOrdered By: Lisa Villagran on 02-24-2023 Leukocyte esterase Test strip Ql (U) Negative Negative [facility] Urine pHOrdered By: Lisa rangel on 02-24-2023 pH (U) 5.0 [pH] 5.0 - 8.[address] [facility] Urine sediment bacteria coun t by microscopy (number/high power field)Ordered By: Lisa Villagran on 02-24-2023 Bacteria LM.HPF (Urine sed) [#/Area] 0 /[HPF] None Seen [facility] Urine specific gravity measu rementOrdered By: Lisa Villagran on 02-24-2023 Specific gravity (U) [Rel density] 1.010 1.002-1.[address] [facility] Urobilinogen Auto test strip Ql (U)Ordered By: Lisa Villagran on 02-24-2023 Urobilinogen Ql (U) Normal mg/dl Normal [facility] Culture, urineOrdered By: Dr Beatriz Abdalla on 06-14-2022 Bacteria identified Cx Nom (U) Positive [facility] Laboratory - Chemistry and C hemistry - challengeOrdered By: Dr. Gates on 06-13-2022 Free T4 [Mass/Vol] 1.07 ng/dL 0.76-1.46 [facility] No Panel InformationOrdered By: Dr. Gates on 06-13-2022 Free Triiodothyronine (T3) pg/dL 2.6 pg/mL 2.18-3.[address] [facility] Thyroid Stimulating Hormone (TSH) 3.19 uIU/mL 0.358-3.[address] [facility] Absolute lymphocyte countOrd ered By: Dr. Abdalla on 06-10-2022 Lymphocytes Auto (Unsp spec) [#/Vol] 5.20 10*3/uL 0.83-4.[address] [facility] Basophil percentageOrdered B y: Dr. Abdalla on 06-10-2022 Basophil percentage 10-25 SEEN /hpf 0-[address] [facility] Basophils/100 WBC (Bld) 0.5 % 0-[address] [facility] Bilirubin [Mass/Vol] 0.20 mg/dL 0.20-1.00 [facility] Comment on above: For patients on eltr ombopag therapy, use of Dimension [place] TBIL is not recommended. Chloride [Moles/Vol] 105 mmol/L 98-107 [facility] Eosinophils/100 WBC (Bld) 2.6 % 0-[address] [facility] Glucose [Mass/Vol] 103 mg/dL 74-106 [facility] Comment on above: Fasting Glucose resu lt from 100 to 125 mg/dL suggests IMPAIRED HOMEOSTASIS per A.D.A. criteria. Neutrophils (Bld) [#/Vol] 3.4 10*3/uL 2.0-7.[address] [facility] Neutrophils/100 WBC (Bld) 35.3 % 47-[address] [facility] Potassium [Moles/Vol] 3.9 mmol/L 3.5-5.1 [facility] Protein [Mass/Vol] 7.7 g/dL 6.4-8.2 [facility] Sodium [Moles/Vol] 139 mmol/L 136-145 [facility] WBC (Bld) [#/Vol] 9.5 10*3/uL 4.4-11.0 [facility] Bilirubin Test strip Ql (U)O rdered By: Dr. Abdalla on 06-10-2022 Bilirubin Ql (U) Negative Negative [facility] Blood erythrocytes count (nu mber/volume)Ordered By: Dr. Abdalla on 06-10-2022 RBC (Bld) [#/Vol] 4.89 10*6/uL 4.2-5.4 [facility] Blood hemoglobin measurement (mass/volume)Ordered By: Dr. Abdalla on 06-10-2022 Hemoglobin (Bld) [Mass/Vol] 12.5 g/dL 12.0-15.[address] [facility] Blood lymphocytes/100 leukoc ytesOrdered By: Dr. Abdalla on 06-10-2022 Lymphocytes/100 WBC (Bld) 54.5 % 19-[address] [facility] Blood manual differential co mment interpretation (narrative result)Ordered By: Dr. Abdalla on 06-10-2022 Manual differential comment Javier (Bld) [Interp] SCANNED [facility] Comment on above: LYMPHOCYTOSIS Blood monocytes/100 leukocyt esOrdered By: [address] Abdalla on 06-10-2022 Monocytes/100 WBC (Bld) 6.8 % 0-[address] [facility] Blood platelet mean volumeOr dered By: Dr. Abdalla on 06-10-2022 Platelet mean volume (Bld) [Entitic vol] 9.4 fL 6.2-12.[address] [facility] Determination of erythrocyte mean corpuscular volume (MCV)Ordered By: Dr. Abdalla on 06-10-2022 MCV (RBC) [Entitic vol] 84.0 fL 81-[address] [facility] Hematocrit Auto (Bld) [Volum e fraction]Ordered By: Dr. Abdalla on 06-10-2022 Hematocrit (Bld) [Volume fraction] 41.1 % 37-[address] [facility] Ketones Test strip Ql (U)Ord ered By: Dr. Adballa on 06-10-2022 Ketones Ql (U) Negative Negative [facility] Laboratory - Chemistry and C hemistry - challengeOrdered By: Dr. Abdalla on 06-10-2022 ALP [Catalytic activity/Vol] 109 U/L 45-[address] [facility] ALT [Catalytic activity/Vol] 39 U/L 13-[address] [facility] CO2 [Moles/Vol] 27.0 mmol/L 21.0-32.[address] [facility] Globulin (S) [Mass/Vol] 4.2 g/dL 2.2-4.[address] [facility] Urea nitrogen/Creatinine [Mass ratio] 17.4 mg/mg 10-[address] [facility] Laboratory - Hematology and Cell countsOrdered By: Dr. Abdalla on 06-10-2022 Erythrocyte distribution width (RBC) [Entitic vol] 47.6 fL 35.1-43.[address] [facility] Erythrocyte distribution width (RBC) [Ratio] 15.6 % 11.6-14.[address] [facility] Immature granulocytes/100 WBC (Bld) 0.300 % 0.0-0.[address] [facility] Comment on above: IG% - Immature Granu locytes (promyelocytes, myelocytes and metamyelocytes) > 1% indicates that a LEFT SHIFT is Present. MCH (RBC) [Entitic mass] 25.6 pg 27.0-32.[address] [facility] Nucleated RBC/100 WBC (Bld) [Ratio] 0 % 0-[address] [facility] MCHC Auto (RBC) [Mass/Vol]Or dered By: Dr. Abdalla on 06-10-2022 MCHC (RBC) [Mass/Vol] 30.4 g/dL 32-36 [facility] Mucus LM Ql (Urine sed)Order ed By: Dr. Abdalla on 06-10-2022 Mucus Ql (Urine sed) 0 SEEN /hpf [facility] Nitrite Test strip Ql (U)Ord ered By: Dr. Abdalla on 06-10-2022 Nitrite Ql (U) Negative Negative [facility] No Panel InformationOrdered By: Dr. Abdalla on 06-10-2022 Estimated Creatinine Clearance Calc 50.54 ml/min [facility] Estimated GFR (MDRD) Amer 78 mL/min >[address] [facility] Comment on above: GFR Calc Estimated GFR (MDRD) Non-Af Amer 64 mL/min >[address] [facility] Comment on above: Non- GFR Calc Reactive Lymphocytes 1+ [facility] Troponin I High Sensitivity 7 pg/mL 3.0-54.[address] [facility] Comment on above: Please Note: New Beatriz t Units and Gender Specific Reference Ranges. For more information see Policy Stat Procedure [facility] High Sensitivity Troponin (TNIH) and attachments. Platelets bldOrdered By: Dr. Abdalla on 06-10-2022 Platelets (Bld) [#/Vol] 382 10*3/uL 150-[address] [facility] Protein Test strip Ql (U)Ord ered By: Dr. Abdalla on 06-10-2022 Protein Ql (U) Negative Negative [facility] Serum or plasma albumin swati urement (mass/volume)Ordered By: Dr. Abdalla on 06-10-2022 Albumin [Mass/Vol] 3.5 g/dL 3.2-5.0 [facility] Serum or plasma albumin/glob ulin mass ratioOrdered By: Dr. Abdalla on 06-10-2022 Albumin/Globulin [Mass ratio] 0.8 {ratio} 0.9-2.[address] [facility] Serum or plasma calcium swati urement (mass/volume)Ordered By: Dr. Abdalla on 06-10-2022 Calcium [Mass/Vol] 8.9 mg/dL 8.5-10.1 [facility] Serum or plasma creatinine m easurement (mass/volume)Ordered By: Dr. Abdalla on 06-10-2022 Creatinine [Mass/Vol] 0.92 mg/dL 0.55-1.02 [facility] Comment on above: The validity of the calculated GFR & GFRAA in patients over 70 years has not been determined. Clinical correlation is essential. Serum or plasma urea nitroge n measurement (mass/volume)Ordered By: Dr. Abdalla on 06-10-2022 Urea nitrogen [Mass/Vol] 16 mg/dL 7-[address] [facility] Squamous epithelial cells de tection in urine sediment by light microscopyOrdered By: Dr. Abdalla on 06-10-2022 Epithelial cells.squamous LM Ql (Urine sed) 0-5 SEEN /hpf 5-[address] [facility] Th[facility] prep Papanicolaou smear with manual screeningOrdered By: Dr. Abdalla on 06-10-2022 Thin prep Papanicolaou smear with manual screening 45 U/L 15-[address] [facility] Thin prep Papanicolaou smear with manual screening 7 5-[address] [facility] Urine blood detectionOrdered By: Dr. Abdalla on 06-10-2022 RBC Ql (U) Negative Negative [facility] RBC Ql (U) 0 SEEN /hpf 0-[address] [facility] Urine clarityOrdered By: Dr. Abdalla on 06-10-2022 Clarity (U) Sl. Cloudy Clear [facility] Urine color determinationOrd ered By: Dr. Abdalla on 06-10-2022 Color (U) Yellow Yellow [facility] Urine glucose detectionOrder ed By: Dr. Abdalla on 06-10-2022 Glucose Ql (U) Normal mg/dl Normal [facility] Urine leukocyte esterase det ection by dipstickOrdered By: Dr. Abdalla on 06-10-2022 Leukocyte esterase Test strip Ql (U) 100 /ul Negative [facility] Urine pHOrdered By: Dr. Dallin anaya on 06-10-2022 pH (U) 7.0 [pH] 5.0 - 8.[address] [facility] Urine sediment bacteria coun t by microscopy (number/high power field)Ordered By: Dr. Abdalla on 06-10-2022 Bacteria LM.HPF (Urine sed) [#/Area] 1 /[HPF] None Seen [facility] Urine specific gravity measu rementOrdered By: Dr. Abdalla on 06-10-2022 Specific gravity (U) [Rel density] 1.010 1.002-1.[address] [facility] Urobilinogen Auto test strip Ql (U)Ordered By: Dr. Abdalla on 06-10-2022 Urobilinogen Ql (U) Normal mg/dl Normal [facility] Absolute lymphocyte counton 12-23-2021 Lymphocytes Auto (Unsp spec) [#/Vol] 2.06 10*3/uL 0.83-4.[address] [facility] Work Phone: Basophil percentageon 2021 Basophils/100 WBC (Bld) 0.6 % 0-[address] [facility] Work Phone: Chloride [Moles/Vol] 107 mmol/L 98-107 [facility] Work Phone: Cholesterol [Mass/Vol] 167 mg/dL <200 [facility] Work Phone: Comment on above: <200 mg/dL Desirable 200-240 mg/dL Borderline >240 mg/dL High Risk Eosinophils/100 WBC (Bld) 0.7 % 0-[address] [facility] Work Phone: [phone] Glucose [Mass/Vol] 99 mg/dL 74-106 [facility] Work Phone: [phone] Neutrophils (Bld) [#/Vol] 3.8 10*3/uL 2.0-7.[address] [facility] Work Phone: Neutrophils/100 WBC (Bld) 55.5 % 47-[address] [facility] Work Phone: Potassium [Moles/Vol] 3.7 mmol/L 3.5-5.1 [facility] Work Phone: Sodium [Moles/Vol] 141 mmol/L 136-145 [facility] Work Phone: [phone] Triglyceride [Mass/Vol] 107 mg/dL <[address] [facility] Work Phone: [phone] Comment on above: The drugs N-Acetylcy steine and Metamizole may falsely depress this assay.Serum Triglycerides Reference Interval Normal <150 mg/dL Borderline high 150 - 199 mg/dL High 200 - 499 mg/dL Very High > or = 500 mg/dL WBC (Bld) [#/Vol] 6.9 10*3/uL 4.4-11.0 [facility] Work Phone: [phone] Blood erythrocytes count (nu mber/volume)on 12-23-2021 RBC (Bld) [#/Vol] 4.27 10*6/uL 4.2-5.4 [facility] Work Phone: [phone] Blood hemoglobin measurement (mass/volume)on 12-23-2021 Hemoglobin (Bld) [Mass/Vol] 11.3 g/dL 12.0-15.[address] [facility] Work Phone: Blood lymphocytes/100 leukoc yteson 12-23-2021 Lymphocytes/100 WBC (Bld) 29.9 % 19-[address] [facility] Work Phone: Blood monocytes/100 leukocyt eson 12-23-2021 Monocytes/100 WBC (Bld) 12.9 % 0-[address] [facility] Work Phone: Blood platelet mean volumeon 12-23-2021 Platelet mean volume (Bld) [Entitic vol] 9.3 fL 6.2-12.[address] [facility] Work Phone: [phone] Determination of erythrocyte mean corpuscular volume (MCV)on 12-23-2021 MCV (RBC) [Entitic vol] 83.4 fL 81-[address] [facility] Work Phone: Hematocrit Auto (Bld) [Volum e fraction]on 12-23-2021 Hematocrit (Bld) [Volume fraction] 35.6 % 37-[address] [facility] Work Phone: [phone] Laboratory - Chemistry and C hemistry - challengeon 12-23-2021 CO2 [Moles/Vol] 25.0 mmol/L 21.0-32.[address] [facility] Work Phone: Urea nitrogen/Creatinine [Mass ratio] 9.1 mg/mg 10-[address] [facility] Work Phone: Laboratory - Hematology and Cell countson 12-23-2021 Erythrocyte distribution width (RBC) [Entitic vol] 48.2 fL 35.1-43.[address] [facility] Work Phone: Erythrocyte distribution width (RBC) [Ratio] 15.9 % 11.6-14.[address] [facility] Work Phone: Immature granulocytes/100 WBC (Bld) 0.400 % 0.0-0.[address] [facility] Work Phone: Comment on above: IG% - Immature Granu locytes (promyelocytes, myelocytes and metamyelocytes) > 1% indicates that a LEFT SHIFT is Present. MCH (RBC) [Entitic mass] 26.5 pg 27.0-32.[address] [facility] Work Phone: Nucleated RBC/100 WBC (Bld) [Ratio] 0 % 0-[address] [facility] Work Phone: MCHC Auto (RBC) [Mass/Vol]on 12-23-2021 MCHC (RBC) [Mass/Vol] 31.7 g/dL 32-36 [facility] Work Phone: No Panel Informationon 12-23 Estimated Creatinine Clearance Calc 43.61 ml/min [facility] Work Phone: Estimated GFR (MDRD) Amer 72 mL/min >[address] [facility] Work Phone: Comment on above: GFR Calc Estimated GFR (MDRD) Non-Af Amer 59 mL/min >[address] [facility] Work Phone: Comment on above: Non- GFR Calc Thyroid Stimulating Hormone (TSH) 2.81 uIU/mL 0.358-3.[address] [facility] Work Phone: Platelets bldon 12-23-2021 Platelets (Bld) [#/Vol] 313 10*3/uL 150-[address] [facility] Work Phone: Serum or plasma calcium swati urement (mass/volume)on 12-23-2021 Calcium [Mass/Vol] 8.5 mg/dL 8.5-10.1 [facility] Work Phone: Serum or plasma cholesterol in HDL measurement (mass/volume)on 12-23-2021 Cholesterol in HDL [Mass/Vol] 44 mg/dL >[address] [facility] Work Phone: Comment on above: The drugs N-Acetylcy steine and Metamizole may falsely depress this assay. Reference Range HDL <40 mg/dL Low HDL Cholesterol HDL >or= 60 mg/dL High HDL Cholesterol Serum or plasma cholesterol in VLDL measurement (mass/volume)on 12-23-2021 Cholesterol in VLDL [Mass/Vol] 21 mg/dL 5-[address] [facility] Work Phone: Serum or plasma creatinine m easurement (mass/volume)on 12-23-2021 Creatinine [Mass/Vol] 0.99 mg/dL 0.55-1.02 [facility] Work Phone: Comment on above: The validity of the calculated GFR & GFRAA in patients over 70 years has not been determined. Clinical correlation is essential. Serum or plasma low density lipoprotein (LDL) cholesterol measurement (mass/volume)on 12-23-2021 Cholesterol in LDL [Mass/Vol] 102 mg/dL 0-[address] [facility] Work Phone: Serum or plasma urea nitroge n measurement (mass/volume)on 12-23-2021 Urea nitrogen [Mass/Vol] 9 mg/dL 7-[address] [facility] Work Phone: Thin prep Papanicolaou smear with manual screeningon 12-23-2021 Thin prep Papanicolaou smear with manual screening 9 5-[address] [facility] Work Phone: [phone] Absolute lymphocyte counton 12-22-2021 Lymphocytes Auto (Unsp spec) [#/Vol] 2.04 10*3/uL 0.83-4.[address] [facility] Work Phone: Basophil percentageon 2021 Basophils/100 WBC (Bld) 0.6 % 0-[address] [facility] Work Phone: Chloride [Moles/Vol] 104 mmol/L 98-107 [facility] Work Phone: Eosinophils/100 WBC (Bld) 1.4 % 0-[address] [facility] Work Phone: [phone] Glucose [Mass/Vol] 99 mg/dL 74-106 [facility] Work Phone: [phone] Neutrophils (Bld) [#/Vol] 7.0 10*3/uL 2.0-7.[address] [facility] Work Phone: Neutrophils/100 WBC (Bld) 68.1 % 47-[address] [facility] Work Phone: Potassium [Moles/Vol] 3.5 mmol/L 3.5-5.1 [facility] Work Phone: Sodium [Moles/Vol] 140 mmol/L 136-[facility] Work Phone: WBC (Bld) [#/Vol] 10.3 10*3/uL 4.4-11.0 [facility] Work [facility]: Blood erythrocytes count (nu mber/volume)on 12-22-2021 RBC (Bld) [#/Vol] 4.69 10*6/uL 4.2-5.4 [facility] Work Phone: Blood hemoglobin measurement (mass/volume)on 12-22-2021 Hemoglobin (Bld) [Mass/Vol] 12.0 g/dL 12.0-15.[address] [facility] Work Phone: Blood lymphocytes/100 leukoc yteson 12-22-2021 Lymphocytes/100 WBC (Bld) 19.8 % 19-[address] [facility] Work Phone: Blood monocytes/100 leukocyt eson 12-22-2021 Monocytes/100 WBC (Bld) 9.5 % 0-[address] [facility] Work Phone: Blood platelet mean volumeon 12-22-2021 Platelet mean volume (Bld) [Entitic vol] 9.3 fL 6.2-12.[address] [facility] Work Phone: Determination of erythrocyte mean corpuscular volume (MCV)on 12-22-2021 MCV (RBC) [Entitic vol] 83.2 fL 81-[address] [facility] Work Phone: Hematocrit Auto (Bld) [Volum e fraction]on 12-22-2021 Hematocrit (Bld) [Volume fraction] 39.0 % 37-[address] [facility] Work Phone: Laboratory - Chemistry and C hemistry - challengeon 12-22-2021 CO2 [Moles/Vol] 28.0 mmol/L 21.0-32.[address] [facility] Work Phone: Magnesium [Mass/Vol] 2.1 mg/dL 1.6-2.6 [facility] Work Phone: Natriuretic peptide B (Bld) [Mass/Vol] 33.9 pg/mL 0-[address] [facility] Work Phone: Urea nitrogen/Creatinine [Mass ratio] 7.3 mg/mg 10-[address] [facility] Work Phone: Laboratory - Hematology and Cell countson 12-22-2021 Erythrocyte distribution width (RBC) [Entitic vol] 47.7 fL 35.1-43.[address] [facility] Work Phone: Erythrocyte distribution width (RBC) [Ratio] 15.9 % 11.6-14.[address] [facility] Work Phone: Immature granulocytes/100 WBC (Bld) 0.600 % 0.0-0.[address] [facility] Work Phone: Comment on above: IG% - Immature Granu locytes (promyelocytes, myelocytes and metamyelocytes) > 1% indicates that a LEFT SHIFT is Present. MCH (RBC) [Entitic mass] 25.6 pg 27.0-32.[address] [facility] Work Phone: Nucleated RBC/100 WBC (Bld) [Ratio] 0 % 0-[address] [facility] Work Phone: MCHC Auto (RBC) [Mass/Vol]on 12-22-2021 MCHC (RBC) [Mass/Vol] 30.8 g/dL 32-36 [facility] Work Phone: No Panel Informationon 12-22 Troponin I High Sensitivity 7 pg/mL 3.0-54.[address] [facility] Work Phone: Comment on above: Please Note: New Beatriz t Units and Gender Specific Reference Ranges. For more information see Policy Stat Procedure [place] High Sensitivity Troponin (TNIH) and attachments. Troponin I High Sensitivity 6 pg/mL 3.0-54.[address] [facility] Work Phone: Comment on above: Please Note: New Beatriz t Units and Gender Specific Reference Ranges. For more information see Policy Stat Procedure [place] High Sensitivity Troponin (TNIH) and attachments. D-Dimer Quantitative (PE/DVT) 0.67 FEU/ug/m 0.27-0.[address] [facility] Work Phone: Comment on above: D-Dimer ELEVATED (>0 .49): Additional studies and clinicalassessments are indicated to conclude diagnosis of:Deep Vein Thrombosis (DVT) or Pulmonary Embolism (PE)CRITICAL VALUE VERIFIED. CALLED TO [id number]/22 [id number] Tigist Godinez.RESULTS READ BACK BY SAME . Estimated Creatinine Clearance Calc 44.98 ml/min [facility] Work Phone: Estimated GFR (MDRD) Amer 74 mL/min >[address] [facility] Work Phone: Comment on above: GFR Calc Estimated GFR (MDRD) Non-Af Amer 61 mL/min >[address] [facility] Work Phone: Comment on above: Non- GFR Calc Platelets bldon 12-22-2021 Platelets (Bld) [#/Vol] 379 10*3/uL 150-[address] [facility] Work Phone: Serum or plasma calcium swati urement (mass/volume)on 12-22-2021 Calcium [Mass/Vol] 8.9 mg/dL 8.5-10.1 [facility] Work Phone: Serum or plasma creatinine m easurement (mass/volume)on 12-22-2021 Creatinine [Mass/Vol] 0.96 mg/dL 0.55-1.02 [facility] Work Phone: Comment on above: The validity of the calculated GFR & GFRAA in patients over 70 years has not been determined. Clinical correlation is essential. Serum or plasma urea nitroge n measurement (mass/volume)on 12-22-2021 Urea nitrogen [Mass/Vol] 7 mg/dL 7-[address] [facility] Work Phone: Thin prep Papanicolaou smear with manual screeningon 12-22-2021 Thin prep Papanicolaou smear with manual screening 8 5-[address] [facility] Work Phone: Absolute lymphocyte counton 05-22-2021 Lymphocytes Auto (Unsp spec) [#/Vol] 3.75 10*3/uL 0.83-4.[address] [facility] Work Phone: Basophil percentageon 2021 Basophils/100 WBC (Bld) 0.4 % 0-[address] [facility] Work Phone: Chloride [Moles/Vol] 106 mmol/L 98-107 [facility] Work Phone: Eosinophils/100 WBC (Bld) 3.0 % 0-[address] [facility] Work Phone: Glucose [Mass/Vol] 92 mg/dL 74-106 [facility] Work Phone: Neutrophils (Bld) [#/Vol] 4.1 10*3/uL 2.0-7.[address] [facility] Work Phone: Neutrophils/100 WBC (Bld) 46.0 % 47-[address] [facility] Work Phone: Potassium [Moles/Vol] 4.0 mmol/L 3.5-5.1 [facility] Work Phone: Sodium [Moles/Vol] 140 mmol/L 136-145 [facility] Work Phone: WBC (Bld) [#/Vol] 8.9 10*3/uL 4.4-11.0 [facility] Work Phone: Blood erythrocytes count (nu mber/volume)on 05-22-2021 RBC (Bld) [#/Vol] 4.47 10*6/uL 4.2-5.4 [facility] Work Phone: Blood hemoglobin measurement (mass/volume)on 05-22-2021 Hemoglobin (Bld) [Mass/Vol] 12.1 g/dL 12.0-15.[address] [facility] Work Phone: Blood lymphocytes/100 leukoc yteson 05-22-2021 Lymphocytes/100 WBC (Bld) 42.1 % 19-[address] [facility] Work Phone: Blood monocytes/100 leukocyt eson 05-22-2021 Monocytes/100 WBC (Bld) 8.3 % 0-[address] [facility] Work Phone: [phone] Blood platelet mean volumeon 05-22-2021 Platelet mean volume (Bld) [Entitic vol] 9.2 fL 6.2-12.[address] [facility] Work Phone: [phone] Determination of erythrocyte mean corpuscular volume (MCV)on 05-22-2021 MCV (RBC) [Entitic vol] 83.9 fL 81-[address] [facility] Work Phone: [phone] Hematocrit Auto (Bld) [Volum e fraction]on 05-22-2021 Hematocrit (Bld) [Volume fraction] 37.5 % 37-[address] [facility] Work Phone: [phone] Laboratory - Chemistry and C hemistry - challengeon 05-22-2021 CO2 [Moles/Vol] 28.0 mmol/L 21.0-32.[address] [facility] Work Phone: [phone] Urea nitrogen/Creatinine [Mass ratio] 20.3 mg/mg 10-[address] [facility] Work Phone: [phone] Laboratory - Hematology and Cell countson 05-22-2021 Erythrocyte distribution width (RBC) [Entitic vol] 48.2 fL 35.1-43.[address] [facility] Work Phone: [phone] Erythrocyte distribution width (RBC) [Ratio] 15.8 % 11.6-14.[address] [facility] Work Phone: [phone] Immature granulocytes/100 WBC (Bld) 0.200 % 0.0-0.[address] [facility] Work Phone: Comment on above: IG% - Immature Granu locytes (promyelocytes, myelocytes and metamyelocytes) > 1% indicates that a LEFT SHIFT is Present. MCH (RBC) [Entitic mass] 27.1 pg 27.0-32.[address] [facility] Work Phone: Nucleated RBC/100 WBC (Bld) [Ratio] 0 % 0-[address] [facility] Work Phone: MCHC Auto (RBC) [Mass/Vol]on 05-22-2021 MCHC (RBC) [Mass/Vol] 32.3 g/dL 32-36 [facility] Work Phone: No Panel Informationon 05-22 Estimated Creatinine Clearance Calc 47.14 ml/min [facility] Work Phone: Estimated GFR (MDRD) Amer 94 mL/min >[address] [facility] Work Phone: Comment on above: GFR Calc Estimated GFR (MDRD) Non-Af Amer 77 mL/min >[address] [facility] Work Phone: Comment on above: Non- GFR Calc Platelets bldon 05-22-2021 Platelets (Bld) [#/Vol] 356 10*3/uL 150-[address] [facility] Work Phone: Serum or plasma calcium swati urement (mass/volume)on 05-22-2021 Calcium [Mass/Vol] 8.6 mg/dL 8.5-10.1 [facility] Work Phone: Serum or plasma creatinine m easurement (mass/volume)on 05-22-2021 Creatinine [Mass/Vol] 0.79 mg/dL 0.55-1.02 [facility] Work Phone: Comment on above: The validity of the calculated GFR & GFRAA in patients over 70 years has not been determined. Clinical correlation is essential. Serum or plasma urea nitroge n measurement (mass/volume)on 05-22-2021 Urea nitrogen [Mass/Vol] 16 mg/dL 7-[address] [facility] Work Phone: Thin prep Papanicolaou smear with manual screeningon 05-22-2021 Thin prep Papanicolaou smear with manual screening 6 5-[address] [facility] Work Phone: Absolute lymphocyte counton 04-12-2021 Lymphocytes Auto (Unsp spec) [#/Vol] 2.79 10*3/uL 0.83-4.[address] [facility] Work Phone: Basophil percentageon 2021 Basophils/100 WBC (Bld) 0.5 % 0-[address] [facility] Work Phone: Chloride [Moles/Vol] 104 mmol/L 98-107 [facility] Work Phone: Eosinophils/100 WBC (Bld) 1.1 % 0-[address] [facility] Work Phone: [phone] Glucose [Mass/Vol] 129 mg/dL 74-106 [facility] Work Phone: [phone] Comment on above: Fasting Glucose resu lt greater than or equal to 126 mg/dL suggests DIABETES MELLITUS per A.D.A. criteria.Please note revised GLUCOSE reference range effective 2017. Neutrophils (Bld) [#/Vol] 7.8 10*3/uL 2.0-7.[address] [facility] Work Phone: Neutrophils/100 WBC (Bld) 66.1 % 47-[address] [facility] Work Phone: Potassium [Moles/Vol] 3.3 mmol/L 3.5-5.1 [facility] Work Phone: [phone] Sodium [Moles/Vol] 139 mmol/L 136-145 [facility] Work Phone: WBC (Bld) [#/Vol] 11.8 10*3/uL 4.4-11.0 [facility] Work Phone: Blood erythrocytes count (nu mber/volume)on 04-12-2021 RBC (Bld) [#/Vol] 4.86 10*6/uL 4.2-5.4 [facility] Work Phone: Blood hemoglobin measurement (mass/volume)on 04-12-2021 Hemoglobin (Bld) [Mass/Vol] 12.6 g/dL 12.0-15.[address] [facility] Work Phone: Blood lymphocytes/100 leukoc yteson 04-12-2021 Lymphocytes/100 WBC (Bld) 23.6 % 19-[address] [facility] Work Phone: Blood monocytes/100 leukocyt eson 04-12-2021 Monocytes/100 WBC (Bld) 8.1 % 0-[address] [facility] Work Phone: Blood platelet mean volumeon 04-12-2021 Platelet mean volume (Bld) [Entitic vol] 9.3 fL 6.2-12.[address] [facility] Work Phone: [phone] Determination of erythrocyte mean corpuscular volume (MCV)on 04-12-2021 MCV (RBC) [Entitic vol] 82.1 fL 81-[address] [facility] Work Phone: Hematocrit Auto (Bld) [Volum e fraction]on 04-12-2021 Hematocrit (Bld) [Volume fraction] 39.9 % 37-[address] [facility] Work Phone: [phone] Laboratory - Chemistry and C hemistry - challengeon 04-12-2021 CO2 [Moles/Vol] 26.0 mmol/L 21.0-32.[address] [facility] Work Phone: [phone] Urea nitrogen/Creatinine [Mass ratio] 15.3 mg/mg 10-[address] [facility] Work Phone: [phone] Laboratory - Hematology and Cell countson 04-12-2021 Erythrocyte distribution width (RBC) [Entitic vol] 47.4 fL 35.1-43.[address] [facility] Work Phone: Erythrocyte distribution width (RBC) [Ratio] 15.9 % 11.6-14.[address] [facility] Work Phone: Immature granulocytes/100 WBC (Bld) 0.600 % 0.0-0.[address] [facility] Work Phone: [phone] Comment on above: IG% - Immature Granu locytes (promyelocytes, myelocytes and metamyelocytes) > 1% indicates that a LEFT SHIFT is Present. MCH (RBC) [Entitic mass] 25.9 pg 27.0-32.[address] [facility] Work Phone: Nucleated RBC/100 WBC (Bld) [Ratio] 0 % 0-[address] [facility] Work Phone: MCHC Auto (RBC) [Mass/Vol]on 04-12-2021 MCHC (RBC) [Mass/Vol] 31.6 g/dL 32-36 [facility] Work Phone: No Panel Informationon 04-12 Estimated Creatinine Clearance Calc 51.24 ml/min [facility] Work Phone: Estimated GFR (MDRD) Amer 79 mL/min >[address] [facility] Work Phone: Comment on above: GFR Calc Estimated GFR (MDRD) Non-Af Amer 65 mL/min >[address] [facility] Work Phone: Comment on above: Non- GFR Calc SARS-CoV-2 Antigen (Rapid) [facility] Work Phone: Platelets bldon 04-12-2021 Platelets (Bld) [#/Vol] 352 10*3/uL 150-[address] [facility] Work Phone: Serum or plasma calcium swati urement (mass/volume)on 04-12-2021 Calcium [Mass/Vol] 9.8 mg/dL 8.5-10.1 [facility] Work Phone: Serum or plasma creatinine m easurement (mass/volume)on 04-12-2021 Creatinine [Mass/Vol] 0.92 mg/dL 0.55-1.02 [facility] Work Phone: Comment on above: The validity of the calculated GFR & GFRAA in patients over 70 years has not been determined. Clinical correlation is essential. Serum or plasma urea nitroge n measurement (mass/volume)on 04-12-2021 Urea nitrogen [Mass/Vol] 14 mg/dL 7-[address] [facility] Work Phone: Thin prep Papanicolaou smear with manual screeningon 04-12-2021 Thin prep Papanicolaou smear with manual screening 9 5-[address] [facility] Work Phone: Vital Signs Date Time Vital Sign Value Performing Clinician Facility 12-28-2024 12:45-0400 Body temperature 98.3 [degF] Dr. Olivia Gates DO Work Phone: [facility] 12-28-2024 12:45-0400 Diastolic blood pressure 80 mm[Hg] Dr. Olivia Gates DO Work Phone: [facility] 12-28-2024 12:45-0400 Heart rate 73 /min Dr. Olivia Gates DO Work Phone: [facility] 12-28-2024 12:45-0400 Respiratory rate 19 /min Dr. Olivia Gates DO Work Phone: [facility] 12-28-2024 12:45-0400 SaO2% (BldA) [Mass fraction] 98 % Dr. Olivia Gates DO Work Phone: [facility] 12-28-2024 12:45-0400 Systolic blood pressure 138 mm[Hg] Dr. Olivia Gates DO Work Phone: [facility] 12-28-2024 11:08-0400 Body height 157.[address] Olivia Gates DO Work Phone: [facility] 12-28-2024 11:08-0400 Body mass index (BMI) [Ratio] 45.4 kg/m2 Dr. Olivia Gates DO Work Phone: [facility] 12-28-2024 11:08-0400 Body weight 112.[address] Olivia Gates DO Work Phone: [facility] 10-28-2024 11:19-0400 Body height 160.[address] Olivia Gates DO Work Phone: [facility] 10-28-2024 11:19-0400 Body mass index (BMI) [Ratio] 43.4 kg/m2 Dr. Olivia Gates DO Work Phone: [facility] 10-28-2024 11:19-0400 Body weight 111.[address] Olivia Gates DO Work Phone: [facility] 09-03-2024 10:11-0400 Body height 160.[address] Olivia Gates DO Work Phone: [facility] 09-03-2024 10:11-0400 Body mass index (BMI) [Ratio] 42.5 kg/m2 Dr. Olivia Gates DO Work Phone: [facility] 09-03-2024 10:11-0400 Body weight 108.[address] Olivia Gates DO Work Phone: [facility] 08-22-2024 11:26-0400 Body temperature 98.2 [degF] Dr. Olivia Gates DO Work Phone: [facility] 08-22-2024 11:26-0400 Diastolic blood pressure 50 mm[Hg] Dr. Olivia Gates DO Work Phone: [facility] 08-22-2024 11:26-0400 Heart rate 65 /min Dr. Olivia Gates DO Work Phone: [facility] 08-22-2024 11:26-0400 Respiratory rate 16 /min Dr. Olivia Gates DO Work Phone: [facility] 08-22-2024 11:26-0400 SaO2% (BldA) [Mass fraction] 94 % Dr. Olivia Gates DO Work Phone: [facility] 08-22-2024 11:26-0400 Systolic blood pressure 128 mm[Hg] Dr. Olivia Gates DO Work Phone: [facility] 08-22-2024 07:21-0400 Inhaled oxygen flow rate 1 L/min Dr. Olivia Gates DO Work Phone: [facility] 08-21-2024 22:00-0400 Inhaled oxygen concentration 21 % Dr. Olivia Gates DO Work Phone: [facility] 08-21-2024 16:30-0400 Body height [address] Olivia Gates DO Work Phone: [facility] 08-21-2024 16:30-0400 Body mass index (BMI) [Ratio] 0 kg/m2 Dr. Olivia Gates DO Work Phone: [facility] 08-21-2024 16:30-0400 Body weight [address] Olivia Gates DO Work Phone: [facility] 07-05-2024 09:44-0400 Body height 160.[address] Olivia Gates DO Work Phone: [facility] 07-05-2024 09:44-0400 Body mass index (BMI) [Ratio] 42.5 kg/m2 Dr. Olivia Gates DO Work Phone: [facility] 07-05-2024 09:44-0400 Body weight 108.[address] Olivia Gates DO Work Phone: [facility] 05-30-2024 13:25-0500 Body height 160.[address] Olivia Gates DO Work Phone: [facility] 05-30-2024 13:25-0500 Body mass index (BMI) [Ratio] 42.5 kg/m2 Dr. Olivia Gates DO Work Phone: [facility] 05-30-2024 13:25-0500 Body weight 108.[address] Olivia Gates DO Work Phone: [facility] 05-18-2024 15:25-0500 Body temperature 98.1 [degF] Dr. Olivia Gates DO Work Phone: [facility] 05-18-2024 15:25-0500 Diastolic blood pressure 89 mm[Hg] Dr. Olivia Gates DO Work Phone: [facility] 05-18-2024 15:25-0500 Heart rate 79 /min Dr. Olivia Gates DO Work Phone: [facility] 05-18-2024 15:25-0500 Respiratory rate 18 /min Dr. Olivia Gates DO Work Phone: [facility] 05-18-2024 15:25-0500 SaO2% (BldA) [Mass fraction] 95 % Dr. Olivia Gates DO Work Phone: [facility] 05-18-2024 15:25-0500 Systolic blood pressure 156 mm[Hg] Dr. Olivia Gates DO Work Phone: [facility] 05-18-2024 13:37-0500 Body mass index (BMI) [Ratio] 44.1 kg/m2 Dr. Olivia Gates DO Work Phone: [facility] 05-18-2024 13:37-0500 Body weight 109.[address] Olivia Gates DO Work Phone: [facility] 08-21-2023 19:32-0400 Body temperature 97.5 [degF] Dr. Olivia Gates Work Phone: [facility] 08-21-2023 19:32-0400 Diastolic blood pressure 74 mm[Hg] Dr. Olivia Gates Work Phone: [facility] 08-21-2023 19:32-0400 Heart rate 76 /min Dr. Olivia Gates Work Phone: [facility] 08-21-2023 19:32-0400 Respiratory rate 22 /min Dr. Olivia Gates Work Phone: [facility] 08-21-2023 19:32-0400 SaO2% (BldA) [Mass fraction] 92 % Dr. Olivia Gates Work Phone: [facility] 08-21-2023 19:32-0400 Systolic blood pressure 146 mm[Hg] Dr. Olivia Gates Work Phone: [facility] 08-21-2023 17:01-0400 Body mass index (BMI) [Ratio] 43.3 kg/m2 Dr. Olivia Gates Work Phone: [facility] 08-21-2023 17:01-0400 Body weight [address] Olivia Gates Work Phone: [facility] 08-21-2023 16:59-0400 Body height 160.[address] Olivia Gates Work Phone: [facility] 02-24-2023 16:19-0500 Diastolic blood pressure 72 mm[Hg] [facility] 02-24-2023 16:19-0500 Heart rate 70 /min [facility] 02-24-2023 16:19-0500 Respiratory rate 16 /min [facility] 02-24-2023 16:19-0500 SaO2% (BldA) [Mass fraction] 98 % [facility] 02-24-2023 16:19-0500 Systolic blood pressure 162 mm[Hg] [facility] 02-24-2023 08:41-0500 Body height 160.02 cm [facility] 02-24-2023 08:41-0500 Body mass index (BMI) [Ratio] 42.4 kg/m2 [facility] 02-24-2023 08:41-0500 Body temperature 98.3 [degF] [facility] 02-24-2023 08:41-0500 Body weight 108.68 kg [facility] 11-07-2022 17:53-0400 Body mass index (BMI) [Ratio] 40.2 kg/m2 [facility] 11-07-2022 17:53-0400 Body weight 106.3 kg [facility] 11-07-2022 17:53-0400 Heart rate 75 /min [facility] 11-07-2022 17:53-0400 Respiratory rate 18 /min [facility] 11-07-2022 17:53-0400 SaO2% (BldA) [Mass fraction] 97 % [facility] 11-07-2022 15:02-0400 Body height 162.56 cm [facility] 11-07-2022 15:02-0400 Body temperature 97.7 [degF] [facility] 11-07-2022 15:02-0400 Diastolic blood pressure 74 mm[Hg] [facility] 11-07-2022 15:02-0400 Systolic blood pressure 130 mm[Hg] [facility] 06-10-2022 15:26-0500 Diastolic blood pressure 66 mm[Hg] Dr. Olivia Gates Work Phone: [facility] 06-10-2022 15:26-0500 Heart rate 60 /min Dr. Olivia Gates Work Phone: [facility] 06-10-2022 15:26-0500 Respiratory rate 14 /min Dr. Olivia Gates Work Phone: [facility] 06-10-2022 15:26-0500 SaO2% (BldA) [Mass fraction] 95 % Dr. Olivia Gates Work Phone: [facility] 06-10-2022 15:26-0500 Systolic blood pressure 140 mm[Hg] Dr. Olivia Gates Work Phone: [facility] 06-10-2022 14:09-0500 Body temperature 97.9 [degF] Dr. Olivia Gates Work Phone: [facility] 06-10-2022 12:24-0500 Body height 162.[address] Olivia Gates Work Phone: [facility] 06-10-2022 12:24-0500 Body mass index (BMI) [Ratio] 39.9 kg/m2 Dr. Olivia Gates Work Phone: [facility] 06-10-2022 12:24-0500 Body weight 105.[address] Olivia Gates Work Phone: [facility] 05-06-2022 15:48-0500 Body height 162.56 cm [facility] 05-06-2022 15:48-0500 Body mass index (BMI) [Ratio] 40.1 kg/m2 [facility] 05-06-2022 15:48-0500 Body temperature 96.8 [degF] [facility] 05-06-2022 15:48-0500 Body weight 106.14 kg [facility] 05-06-2022 15:48-0500 Diastolic blood pressure 100 mm[Hg] [facility] 05-06-2022 15:48-0500 Heart rate 84 /min [facility] 05-06-2022 15:48-0500 Respiratory rate 18 /min [facility] 05-06-2022 15:48-0500 SaO2% (BldA) [Mass fraction] 98 % [facility] 05-06-2022 15:48-0500 Systolic blood pressure 154 mm[Hg] [facility] 12-23-2021 11:04-0400 Body temperature 98.8 [degF] Dr. Olivia Gates Work Phone: [facility] Work Phone: 12-23-2021 11:04-0400 Diastolic blood pressure 67 mm[Hg] Dr. Olivia Gates Work Phone: [facility] Work Phone: 12-23-2021 11:04-0400 Heart rate 77 /min Dr. Olivia Gates Work Phone: [facility] Work Phone: 12-23-2021 11:04-0400 Respiratory rate 16 /min Dr. Olivia Gates Work Phone: [facility] Work Phone: 12-23-2021 11:04-0400 SaO2% (BldA) [Mass fraction] 94 % Dr. Olivia Gates Work Phone: [facility] Work Phone: 12-23-2021 11:04-0400 Systolic blood pressure 142 mm[Hg] Dr. Olivia Gates Work Phone: [facility] Work Phone: 12-23-2021 10:13-0400 Body height 157.[address] Olivia Gates Work Phone: [facility] Work Phone: 12-23-2021 10:13-0400 Body weight 103.[address] Olivia Gates Work Phone: [facility] Work Phone: 12-22-2021 19:02-0400 Body mass index (BMI) [Ratio] 41.5 kg/m2 Dr. Olivia Gates Work Phone: [facility] Work Phone: 12-22-2021 18:32-0400 Body temperature 97.3 [degF] [facility] Work Phone: 12-22-2021 18:32-0400 Diastolic blood pressure 68 mm[Hg] [facility] Work Phone: 12-22-2021 18:32-0400 Heart rate 81 /min [facility] Work Phone: 12-22-2021 18:32-0400 Respiratory rate 19 /min [facility] Work Phone: 12-22-2021 18:32-0400 SaO2% (BldA) [Mass fraction] 93 % [facility] Work Phone: 12-22-2021 18:32-0400 Systolic blood pressure 165 mm[Hg] [facility] Work Phone: 12-22-2021 14:19-0400 Body height 157.48 cm [facility] Work Phone: 12-22-2021 14:19-0400 Body mass index (BMI) [Ratio] 42.6 kg/m2 [facility] Work Phone: 12-22-2021 14:19-0400 Body weight 105.7 kg [facility] Work Phone: 05-22-2021 13:16-0500 Body height 162.56 cm [facility] Work Phone: 05-22-2021 13:16-0500 Body mass index (BMI) [Ratio] 39.8 kg/m2 [facility] Work Phone: 05-22-2021 13:16-0500 Body temperature 99.1 [degF] [facility] Work Phone: 05-22-2021 13:16-0500 Body weight 105.23 kg [facility] Work Phone: 05-22-2021 13:16-0500 Heart rate 69 /min [facility] Work Phone: 05-22-2021 13:16-0500 Respiratory rate 16 /min [facility] Work Phone: 05-22-2021 13:16-0500 SaO2% (BldA) [Mass fraction] 98 % [facility] Work Phone: 05-22-2021 13:15-0500 Diastolic blood pressure 66 mm[Hg] [facility] Work Phone: 05-22-2021 13:15-0500 Systolic blood pressure 144 mm[Hg] [facility] Work Phone: 04-13-2021 00:21-0500 Diastolic blood pressure 70 mm[Hg] [facility] Work Phone: 04-13-2021 00:21-0500 Heart rate 70 /min [facility] Work Phone: 04-13-2021 00:21-0500 Respiratory rate 15 /min [facility] Work Phone: 04-13-2021 00:21-0500 SaO2% (BldA) [Mass fraction] 98 % [facility] Work Phone: 04-13-2021 00:21-0500 Systolic blood pressure 114 mm[Hg] [facility] Work Phone: 04-12-2021 23:26-0500 Body temperature 98.2 [degF] [facility] Work Phone: 04-12-2021 16:31-0500 Body mass index (BMI) [Ratio] 38.6 kg/m2 [facility] Work Phone: 04-12-2021 16:31-0500 Body weight 102.05 kg [facility] Work Phone: Encounters Encounter Date Encounter Type Care Provider Facility Start: 02-19-2025 End: 02-19-2025 Emergency department patient visit Connor Flores Facility:[facility] Start: 02-18-2025 ambulatory Macario Sandoval Facility :[facility] Start: 01-15-2025 End: 01-15-2025 ambulatory Olivia Gates Facility:[facility] Start: 01-06-2025 End: 01-06-[address] Macario Sandoval MD -[facility] Work Phone: Start: 01-06-2025 End: 01-06-[address] Olivia Gates DO Work Phone: -[facility] Start: 12-31-2024 End: 12-31-[address] Olivia Gates DO Work Phone: -Cat Scan [facility] Start: 12-31-2024 End: 12-31-[address] Macario Sandoval MD -Cat Scan [facility] Work Phone: Start: 12-31-2024 End: 12-31-2024 ambulatory Macario Sandoval Facility:[facility] Start: 12-28-2024 End: 12-28-2024 Emergency department patient visit Dr. Gunnar Ocampo MD -Emergency Department Work Phone: Start: 11-19-2024 End: 11-19-[address] Macario Sandoval MD -[facility] Work Phone: Start: 11-19-2024 End: 11-19-[address] Olivia Gates DO Work Phone: -[facility] Start: 10-28-2024 End: 10-28-[address] Macario Sandoval MD -[facility] Work Phone: Start: 10-28-2024 End: 10-28-[address] Olivia Gates DO Work Phone: -[facility] Start: 10-01-2024 End: 10-01-[address] Macario Sandoval MD -[facility] Work Phone: Start: 10-01-2024 End: 10-01-[address] Olivia Gates DO Work Phone: [facility] Work Phone: Start: 09-24-2024 Encounter for other preprocedural examination Macario Sandoval [facility] Start: 09-03-2024 End: 09-03-[address] Macario Sandoval MD -[facility] Work Phone: Start: 09-03-2024 End: 09-03-[address] Olivia Gates DO Work Phone: [facility] Work Phone: Start: 08-26-2024 ambulatory Olivia Gates Facility:[facility] Start: 08-22-2024 Non-patient / Non-visit Dr. Macario diaz MD -[facility] Start: 08-21-2024 Non-patient / Non-visit Dr. Leana Vaca MD -[facility] Work Phone: Start: 08-21-2024 ambulatory Leana Vaca Facility :[facility] Start: 08-21-2024 End: 08-22-2024 Evaluation and management of inpatient Dr. Macario Sandoval MD -[facility] Work Phone: Start: 08-21-2024 ambulatory Macario Sandoval Facility :[facility] Start: 08-21-2024 Non-patient / Non-visit Dr. Macario diaz MD -[facility] Start: 08-20-2024 End: 08-20-[address] Olivia Gates DO -Laboratory Work Phone: Start: 08-20-2024 End: 08-20-[address] Olivia Gates DO Work Phone: [facility] Work Phone: Start: 08-20-2024 End: 08-20-2024 Non-patient / Non-visit Dr. Mino Gomez MD -[facility] Work Phone: Start: 08-20-2024 End: 08-20-2024 ambulatory Olivia Gates Facility:[facility] Start: 08-13-2024 End: 08-13-[address] Olivia Gates DO Work Phone: [facility] Work Phone: Start: 08-13-2024 End: 08-13-[address] Olivia Gates DO -Laboratory, Specimen Work Phone: Start: 08-13-2024 End: 08-13-2024 ambulatory Olivia Gates Facility:[facility] Start: 07-05-2024 End: 07-05-[address] Macario Sandoval MD -[facility] Work Phone: Start: 07-05-2024 End: 07-05-2024 ambulatory Macario Sandoval Facility:[facility] Start: 06-26-2024 End: 06-26-[address] Olivia Gates DO Work Phone: [facility] Work Phone: Start: 06-26-2024 End: 06-26-[address] Macario Sandoval MD -[facility] Work Phone: Start: 06-26-2024 End: 06-26-2024 ambulatory Macario Sandoval Facility:[facility] Start: 05-30-2024 End: 05-30-[address] Macario Sandoval MD -[facility] Work Phone: Start: 05-30-2024 End: 05-30-2024 ambulatory Macario Sandoval Facility:[facility] Start: 05-18-2024 End: 05-18-2024 Emergency department patient visit Dr. Federico Arango MD -Emergency Department Work Phone: Start: 04-01-2024 ambulatory Mark Soria lity:[facility] Start: 02-28-2024 End: 02-28-2024 ambulatory Olivia Gates Facility:[facility] Start: 08-21-2023 End: 08-21-2023 Emergency department patient visit Dr. Olivia Gates Work Phone: [facility]-Emergency Department Work Phone: Start: 07-05-2023 End: 07-05-[address] Olivia Gates Work Phone: [facility] Work Phone: Start: 07-05-2023 End: 07-05-[address] Olivia Gates Work Phone: [facility]-Laboratory, Specimen Work Phone: Start: 06-27-2023 End: 06-27-[address] Olivia Gates Work Phone: [facility] Work Phone: Start: 06-27-2023 End: 06-27-[address] Olivia Gates Work Phone: [facility]-Outpatient Bone Densitometry Work Phone: Start: 06-14-2023 Non-patient / Non-visit Dr. Fina Gates Work Phone: [facility] Start: 06-14-2023 End: 06-14-[address] Olivia Gates Work Phone: [facility] Work Phone: Start: 06-14-2023 End: 06-14-[address] Olivia Gates Work Phone: [facility]-Pulmonary Services/Neurology Work Phone: Start: 05-05-2023 End: 05-05-[address] [facility] Work Phone: Start: 05-05-2023 End: 05-05-2023 Patient encounter procedure [facility] Work Phone: Start: 04-24-2023 End: 04-24-[address] [facility] Work Phone: Start: 04-24-2023 End: 04-24-[address] [facility] Start: 02-24-2023 End: 02-24-2023 Emergency department patient visit [facility]-Emergency Department Work Phone: Start: 11-07-2022 End: 11-07-2022 Emergency department patient visit [facility]-Emergency Department Work Phone: Start: 06-13-2022 End: 06-13-[address] Olivia Gates Work Phone: [facility] Work Phone: Start: 06-13-2022 End: 06-13-[address] [facility] Gates [facility] Alex and Anienio [facility] Start: 06-10-2022 End: 06-10-2022 Emergency department patient visit Dr. Olivia Gates Work Phone: [facility]-Emergency Department Start: 05-06-2022 Non-patient / Non-visit Dr. Fina Gates Work Phone: [facility] Start: 05-06-2022 End: 05-06-2022 Emergency department patient visit [facility]-Emergency Department Start: 12-23-2021 Non-patient / Non-visit Dr. Fina Gates Work Phone: [facility] Start: 12-22-2021 Non-patient / Non-visit Dr. Fina Gates Work Phone: [facility] Start: 12-22-2021 End: 12-23-2021 Evaluation and management of inpatient [facility]-Progressive Care Unit Start: 12-22-2021 End: 12-23-[address] Olivia Gates Work Phone: [facility] Work Phone: Start: 06-24-2021 End: 06-24-2021 Patient encounter procedure [facility]-Outpatient Bone Densitometry Start: 05-22-2021 End: 05-22-2021 [facility] Start: 04-12-2021 End: 04-13-2021 [facility] Procedures Date Procedure Procedure Detail Performing Clinician Start: 12-31-2024 CT of upper limb without contrast Dr. Olivia Gates DO Work Phone: Start: 12-28-2024 Plain X-ray of shoulder Dr. Olivia Valenzuela Work Phone: Start: 08-22-[address] Olivia [...] Treatment Date Care Activity Detail Author Start: 03-26-2025 ambulatory Ambulatory Facility:[facility] Start: 03-04-2025 ambulatory Ambulatory Facility:[facility] Start: 01-06-2025 End: 01-06-2025 Patient encounter procedure Primary osteoarthritis, right shoulder -[facility] Work Phone: Start: 12-31-2024 CT of upper limb without contrast Extremity Upper without Contra [facility] Start: 12-31-2024 End: 12-31-2024 Patient encounter procedure Departed Clinical -Cat Scan [facility] Work Phone: Start: 12-28-[address] [facility] Start: 09-03-2024 Patient referral [facility] Work Phone: Start: 08-22-[address] [facility] Start: 08-22-2024 Application of intermittent pneumatic compression device [facility] Start: 08-21-2024 Following clinical pathway protocol [facility] Start: 08-21-[address] [facility] Start: 08-21-2024 Introduction of urinary catheter [facility] Start: 08-21-[address] [facility] Start: 08-21-2024 Referral to occupational therapist [facility] Start: 08-21-2024 Referral to service [facility] Start: 08-21-2024 [address]mission procedure [facility] Start: 08-21-[address] [facility] Start: 08-21-2024 Application of device [facility] Start: 08-21-2024 Application of ice collar, cap or bag [facility] Start: 08-21-2024 Assessment of risk of venous thromboembolism [facility] Start: 08-21-2024 Catheterization of vein [facility] Start: 08-21-2024 Continuous positive airway pressure ventilation treatment [facility] Start: 08-21-2024 Following clinical pathway protocol [facility] Start: 08-21-[address] [facility] Start: 08-21-2024 Introduction of urinary catheter [facility] Start: 08-21-2024 Vital signs measurements [facility] Start: 08-21-[address] [facility] Start: 05-30-[address] [facility] Work Phone: Start: 05-18-[address] [facility] Start: 08-21-[address] [facility] Start: 08-21-[address] [facility] Start: 02-24-[address] [facility] Start: 06-10-[address] [facility] Start: 12-23-[address] [facility] Work Phone: Start: 12-23-2021 Plain chest X-ray Chest PA and Lateral [facility] Work Phone: Start: 12-23-2021 XR Chest PA and Lateral [facility] Work Phone: Start: 12-23-2021 Inhalation therapy procedure [facility] Work Phone: Start: 12-22-2021 Following clinical pathway protocol [facility] Work Phone: Start: 12-22-2021 Ambulation without limitation [facility] Work Phone: Start: 12-22-2021 Assessment of risk of venous thromboembolism [facility] Work Phone: Start: 12-22-2021 Insertion of catheter into peripheral vein [facility] Work Phone: Start: 12-22-2021 Measuring intake and output [facility] Work Phone: Start: 12-22-2021 Notification of physician [facility] Work Phone: Start: 12-22-[address] [facility] Work Phone: Start: 12-22-2021 Patient referral to dietitian [facility] Work Phone: Start: 12-22-2021 Providing care according to standard [facility] Work Phone: Start: 12-22-2021 Tobacco use cessation education [facility] Work Phone: Start: 12-22-[address] [facility] Work Phone: Start: 12-22-2021 [address] procedure [facility] Work Phone: Start: 12-22-2021 [address] [facility] Work Phone: Start: 12-22-[address] [facility] Work Phone: CT Upper extremity W O contrast [facility] Patient Education [facility] Work Phone: Patient referral [facility] Work Phone: [facility] Immunizations Immunization Date Immunization Notes Care Provider Thong person 12-01-2020 tetanus toxoid, redu jamee diphtheria toxoid, and acellular pertussis vaccine, adsorbed [facility] 09-08-2020 Covid (Moderna) Dr. Olivia ortiz Work Phone: [facility] 07-30-2020 [facility] (Moderna) Dr. Olivia ortiz Work Phone: [facility] 01-08-2017 Influenza virus vaccine [facility] 03-25-2013 Pneumococcal Vaccine [facility] Work Phone: 03-25-2013 pneumococcal vaccine , unspecified formulation [facility] Payers Date Payer Category Payer Unknown [id number] 2024 Private Health Insurance 101 [id number] 2024 Self-pay [id number] 2014 Medicaid [id number] 2007 Medicare [id number] Unknown [id number] Unknown [id number] 2.16.8 [id number] Unknown [id number] 2.16.8 40.1.841550.3.579.2.462 Unknown [id number] 2.16.8 40.1.983538.3.579.2.462 Unknown [id number] 2.16.8 40.1.596966.3.579.2.462 Unknown [id number] 2.16.8 40.1.995213.3.579.2.462 Unknown [id number] 2.16.8 40.1.490983.3.579.2.462 Unknown [id number] 2.16.8 40.1.489445.3.579.2.462 Unknown [id number] 2.16.8 40.1.208375.3.579.2.462 Unknown [id number] 2.16.8 40.1.768038.3.579.2.462 Unknown [id number] 2.16.8 40.1.086479.3.579.2.462 Unknown [id number] 2.16.8 40.1.881005.3.579.2.462 Unknown [id number] 2.16.8 40.1.325092.3.579.2.462 Unknown [id number] 2.16.8 40.1.804232.3.579.2.462 Unknown [id number] 2.16.8 40.1.750755.3.579.2.462 Unknown [id number] 2.16.8 40.1.200376.3.579.2.462 Unknown [id number] 2.16.8 40.1.009731.3.579.2.462 Unknown [id number] 2.16.8 40.1.008836.3.579.2.462 Unknown [id number] 2.16.8 40.1.807306.3.579.2.462 Unknown [id number] 2.16.8 40.1.753168.3.579.2.462 Unknown [id number] 2.16.8 40.1.209742.3.579.2.462 Unknown [id number] 2.16.8 40.1.051606.3.579.2.462 Unknown [id number] 2.16.8 40.1.765748.3.579.2.462 Unknown [id number] 2.16.8 40.1.292280.3.579.2.462 Unknown [id number] 2.16.8 40.1.713966.3.579.2.462 Unknown [id number] 2.16.8 40.1.149462.3.579.2.462 Unknown [id number] 2.16.8 40.1.057558.3.579.2.462 Social History Date Type Detail Facility Start: 05-22-2021 End: 08-21-2023 Tobacco smoking status NHIS Unknown if ever smoked [facility] Start: 07-04-2020 None [facility] Start: 08-14-2020 Alone [facility] Start: 07-04-2020 Non-smoker [facility] Start: 1955 Sex Assigned At Female [facility] Start: 05-30-2024 End: 12-28-2024 Tobacco smoking status NHIS Never smoked tobacco (finding) [facility] Start: 07-03-2024 Sex Female (finding) [facility] Not [facility] NEGATED: Highlighted row Not [facility] Equipment Procedure Code Equipment Code Equipment Origin al Text Equipment Identifier Dates Arthroscopy, shoulder ([id number]) Tendon/ligament bone anchor, non-bioabsorbable ()[id number] FDA Start: 08-21-2024 Arthroscopy, shoulder Tendon/ligament bone anchor, bioabsorbable ()[id number] FDA Start: 08-21-2024 Goals Date Patient Goal Desired Activity /State Functional Status Date Assessment Result Facility 08-22-2024 Functional status Ambulates;Bath room Privilege;Back to bed [facility] Work Phone: 12-23-2021 Functional status Ambulates [facility] Work Phone: Mental Status Date Assessment Result Facility 08-22-2024 Cognitive function Voice/Name;Touch/Wendy arreaga [facility] Work Phone: 02-24-2023 Cognitive function Level Of Cons ciousness Awake;Alert;Appropriate [facility] Work Phone: 06-10-2022 Cognitive function Level Of Cons ciousness Awake;Alert;Appropriate;Follow s Commands [facility] Work Phone: 12-23-2021 Cognitive function Voice/Name [facility] Work Phone: 12-22-2021 Cognitive function Voice/Name [facility] Work Phone: 05-22-2021 Cognitive function Level Of Cons ciousness Awake;Alert;Appropriate;Follow s Commands [facility] Work Phone: Clinical Notes 11-07-2022 to 01-06-2025 Note Date & Type Note Facility 01-06-2025 Progress note [facility] 01-02-2025 Radiology Diagnostic study note [facility] Imaging Services [address], [place] [address] Extremity Upper without Contra MR#: [id number] Acct: [id number] Name: NENA KRISHNAN Rep #: [id number] : 1955 F 69 From: Jessa Rivas MD PCP: Dr. Olivia Gates, DO Status: REG CLI Study:Extremity Upper without Contra Date of Exam: 12/31/24 Exam# [id number] Ordering Dr: Macario Sandoval MD PROCEDURE: EXTREMITY UPPER WITHOUT CONTRA 12/31/2024 REASON FOR EXAM: PRE OPERATIVE PLANNING FOR REVERSE TOTAL TECHNIQUE: Procedure Code: CTEUWO Modality: CT Procedure: EXTREMITY UPPER WITHOUT CONTRA Coronal and Sagittal reconstruction series were provided. One or more dose reduction techniques were used (e.g., Automated exposure control, adjustment of the mA and/or kV according to patient size, use of iterative reconstruction technique. RADIATION DOSE SUMMARY: DLP: 1032 mGycm COMPARISON: None FINDINGS: There is moderate osteoarthritis of the glenohumeral articulation with subcortical cyst formation and marginal osteophytes. AC joint is aligned. There is no visible radiopaque foreign body. There is no visible muscular atrophy. There is no visible atherosclerosis. Adjacent lung shows interstitial infiltrate versus fibrosis in the right upper and middle lobe. A 0.5 cm peripheral pulmonary nodule is noted, image 95/156. CT/Extremity Upper without Contra IMPRESSION: ere is moderate osteoarthritis of the glenohumeral articulation with subcorticalcyst formation and marginal osteophytes. Adjacent lung shows interstitial infiltrate versus fibrosis in the right upper and middle lobe. A 0.5 cm peripheral pulmonary nodule is noted, image 95/156. Reading Location: [facility] CC: Dr. Olivia Gates DO; Dr. Macario Sandoval MD ~ Gas Meter Mechanic: Signed [facility] 12-28-[address] [facility] 12-28-2024 Radiology Diagnostic study note [facility] Imaging Services [address] [place], [place] [id number] Shoulder min 2 Views MR#: [id number] Acct: [id number] Name: NENA KRISHNAN Rep #: [id number] : 1955 F 69 From: Heriberto Roman MD PCP: Dr. Olivia Gates DO Status: REG ER Study:Shoulder min 2 Views Date of Exam: 12/28/24 Exam# [id number] Ordering Dr: Gunnar Ocampo MD PROCEDURE: SHOULDER MIN 2 VIEWS 12/28/2024 REASON FOR EXAM: PAIN TECHNIQUE: Procedure Code: RADSH Modality: DX Procedure: SHOULDER MIN 2 VIEWS Laterality: COMPARISON: None. FINDINGS: Bones: No acute bony abnormalities. Joints: Unremarkable. No dislocation. Soft tissues: No soft tissue abnormalities. RAD/Shoulder min 2 Views IMPRESSION: No acute osseous abnormalities. Reading Location: [facility] CC: Dr. Gunnar Ocampo MD; Dr. Olivia Gates DO ~ Gas Meter Mechanic: Signed [facility] 11-19-2024 Progress note [facility] 11-19-2024 Progress note Note Date/Time November 19, 2024 11:05am [facility] [address] [place] [address] [address] [place] [address] OFFICE VISIT Date of Service: 11/19/24 MR#: [id number] Acct: [id number] Name: NENA KRISHNAN Rep #: [id number] : 1955 Provider: Dr. Luis Sandoval MD Age/Sex: 69/F Location: [facility] Status: Signed Intake Vital Signs 10/28/24 11:19 [...] the decisions made by me, Dr. Macario Sandoval MD 11/19/24 0850. Part of today?s visit [...] by Macario barry MD> Date _ Macario Sandoval MD Cosigner Signature: Date (if applicable) CC: ~ [facility] Work Phone: 1(372) 563-255307-21-2025 Progress [facility] [address] [place] [address] OFFICE VISIT Date of Service: 10/28/24 MR#: [id number] Acct: [id number] Name: NENA KRISHNAN Rep #: [id number] : 1955 Provider: Dr. Luis Sandoval MD Age/Sex: 69/F Location: [facility] Status: Signed Intake Vital Signs 09/03/24 10:11 [...] by me, Dr. Roberto Carlos MD 10/28/24 4810. Part of today?s visit was documented by [...] ER. weak in FE. 10/28/24 1135 n > Date _ Macario Sandoval MD Cosigner Signature: Date (if applicable) CC: ~ [facility]07-21-2025 Progress note Author Macario Sandoval [facility] Note Date/Time October 28, 2024 11:3 5am [facility] [address] [place] [address] OFFICE VISIT Date of Service: 10/28/24 MR#: [id number] Acct: [id number] Name: NENA KRISHNAN Rep #: [id number] : 1955 Provider: Dr. Luis Sandoval MD Age/Sex: 69/F Location: [facility] Status: Signed Intake Vital Signs 09/03/24 10:11 [...] the decisions made by me, Dr. Macario Sandoval MD 10/28/24 0830. Part of today?s visit [...] by Macario barry MD> Date _ Macario Sandoval MD Cosigner Signature: Date (if applicable) CC: ~ [facility] Work Phone: 1(185) 631-222506-24-2025 Evaluation note* Diagnosis Onset Date Resolution Status Admit Date Arthrosis of right acromioclavicular joint acute September [...] cuff tear acute A ugust 2024 10:45am Primary osteoarthritis, righ t shoulder acute January 06, 2025 11:10am Right rotator cuff tear acute S [facility] 2024 11:10am [facility] Work Phone: 1(284) 604-698306-24-2025 Progress [facility] [address] [place] [address] OFFICE VISIT Date of Service: 10/01/24 MR#: [id number] Acct: [id number] Name: NENA KRISHNAN Rep #: [id number] : 1955 Provider: Dr. Luis Sandoval MD Age/Sex: 69/F Location: [facility] Status: Signed Intake Vital Signs 09/03/24 10:11 [...] by me, Dr. Roberto Carlos MD 10/01/24 3014. Part of today?s visit was documented by [...] 10/01/24 1121 n MD> Date _ Macario Sandoval MD Cosigner Signature: Date (if applicable) CC: ~ [facility]06-24-2025 Progress note Author Macario Sandoval [facility] Note Date/Time October 01, 2024 11:[address] [facility] [address] [place] [address] OFFICE VISIT Date of Service: 10/01/24 MR#: [id number] Acct: [id number] Name: NENA KRISHNAN Rep #: [id number] : 1955 Provider: Dr. Luis Sandoval MD Age/Sex: 69/F Location: [facility] Status: Signed Intake Vital Signs 09/03/24 10:11 [...] the decisions made by me, Dr. Macario Sandoval MD 10/01/24 8901. Part of today?s visit was documented by [...] symptoms. Coding Level of Care Code Attention Senior Test Engineer Diagnoses Arthrosis of right acromioclavicular joint M19.011 [...] by Macario barry MD> Date _ Macario Sandoval MD Cosigner Signature: Date (if applicable) CC: ~ [facility] Work Phone: 1(797) 128-409605-15-2025 Discharge summary Author Macario Sandoval [facility] Note Date/Time August 22, 2024 11:06 am [facility] Medical Records Department [address] [place] [address] Discharge Summary 08/22/24 4747 MR#: [id number] Acct: [id number] Name: NENA KRISHNAN Rep #:[id number] : 1955 69 From: Macario Sandoval MD PCP: Dr. Olivia Gates, DO Status:ADM IN Location: [facility] [id number] Providers Date of Admission: 08/21/24 Primary Care Physician: Dr. Olivia Gates DO Consultations 08/21/24 15:06 Consult: Hospitalist Routine Consulting Provider: Leana Vaca Reason for Consult: Hypoxia post-op RT Shoulder Arthroscopy, Subacrom Decompress, etc... EMERGENT Consult: No MD Notified: Yes Date Notified: 08/21/24 Time Notified: 15:06 Method of Notification: Text Comments:: DR SANDOVAL TO CONTACT HOPSITALIST Reason For Visit: Right [...] Vit D deficiency 05/20/17 hydrocodone-acetaminophen 5-325mg 5mg-325mg ([place]) 1 ea PO TID PRN Pain 06/22/17 [...] 77.1 H, Lymph % (Auto) 16.0 L, [place] % (Auto) 6.3, Eos % (Auto) 0.0, [...] instructions: No Please Follow Up With: Macario Sandoval MD When: next week Meaningful Use Info [...] sats after shoulder arthroscopy Attending Provider: Macario Sandoval Primary Care Provider: Olivia Gates Consulting Providers: [...] monday Rx Instructions: takes on monday hydrocodone-acetaminophen [[place]] 1 EACH tablet 1 ea PO TID [...] Gates DO [Primary Care Provider] - Macario Sandoval MD [Med Staff - Active Staff] - Disposition Disposition (needs filled in before D/C Order can be placed): Home, Self Care 08/22/24 1106 <Electronically signed by Macario Sandoval MD> Cosigner Signature (if applicable): CC: Dr. Olivia Gates DO; Dr. Macario Sandoval MD~ Signed [facility] Work Phone: 1(230) 913-804505-15-2025 Discharge summary [facility] Medical Records Department [address] [place] [address] Discharge Summary 08/22/24 1105 MR#: [id number] Acct: [id number] Name: NENA KRISHNAN Rep #:[id number] : 1955 69 From: Macario Sandoval MD PCP: Dr. Olivia Gates DO Status:ADM IN Location: [facility] [id number] Providers Date of Admission: 08/21/24 Primary Care Physician: Dr. Olivia Gates DO Consultations 08/21/24 15:06 Consult: Hospitalist Routine Consulting Provider: Leana Vaca Reason for Consult: Hypoxia post-op RT Shoulder Arthroscopy, Subacrom Decompress, etc... EMERGENT Consult: No MD Notified: Yes Date Notified: 08/21/24 Time Notified: 15:06 Method of Notification: Text Comments:: DR SANDOVAL TO CONTACT HOPSITALIST Reason For Visit: Right [...] Vit D deficiency 05/20/17 hydrocodone-acetaminophen 5-325mg 5mg-325mg ([place]) 1 ea PO TID PRN Pain 06/22/17 [...] 77.1 H, Lymph % (Auto) 16.0 L, [place] % (Auto) 6.3, Eos % (Auto) 0.0, [...] instructions: No Please Follow Up With: Macario Sandoval MD When: next week Meaningful Use Info [...] sats after shoulder arthroscopy Attending Provider: Macario Sandoval Primary Care Provider: Olivia Gates Consulting Providers: [...] monday Rx Instructions: takes on monday hydrocodone-acetaminophen [[place]] 1 EACH tablet 1 ea PO TID [...] Gates DO [Primary Care Provider] - Macario Sandoval MD [Med Staff - Active Staff] - Disposition Disposition (needs filled in before D/C Order can be placed): Home, Self Care 08/22/24 110 Cosigner Signature (if applicable): CC: Dr. Olivia Gates DO; Dr. Macario Sandoval MD~ Signed [facility]05-15-2025 [facility] Medical Records Department [address] [place] [address] Discharge Summary 08/22/241104 MR#: [id number] Acct: [id number] Name: NENA KRISHNAN Rep #: [id number] : 1955 69 From: Macario Sandoval MD PCP: Dr. Olivia Gates DO Status:ADM IN Location: [facility] [id number] Providers Date of Admission: 08/21/24 Primary Care Physician: Dr. Olivia Gates DO Consultations 08/21/24 15:06 Consult: Hospitalist Routine Consulting Provider: Leana Vaca Reason for Consult: Hypoxia post-op RT Shoulder Arthroscopy, Subacrom Decompress, etc... EMERGENT Consult: No MD Notified: Yes Date Notified: 08/21/24 Time Notified: 15:06 Method of Notification: Text Comments:: DR SANDOVAL TO CONTACT HOPSITALIST Reason For Visit: Right [...] Vit D deficiency 05/20/17 hydrocodone-acetaminophen 5-325mg 5mg-325mg ([place]) 1 ea PO TID PRN Pain 06/22/17 [...] 77.1 H, Lymph % (Auto) 16.0 L, [place] % (Auto) 6.3, Eos % (Auto) 0.0, [...] instructions: No Please Follow Up With: Macario Sandoval MD When: next week Meaningful Use Info [...] to 2.5/40 mg Ezeti (more content not included)...[facility]05-14-2025 Progress note Author Leana Vaca [facility] Note Date/Time August 21, 2024 4:48p m [facility] Medical Records Department [address] [place] [address] Progress Note - Hospitalist 08/21/24 1610 MR#: [id number] Acct: [id number] Name: NENA KRISHNAN Rep #:[id number] : 1955 69 From: Leana Vaca MD PCP: Dr. Olivia Malys, DO Status:ADM IN Location: [place] [id number] Reason for Visit Reason for Visit: Diagnoses [...] with PAP therapy who presents to the [facility] on 08/21/[address] Sandoval secondary to persistent unrelenting right upper extremity [...] with PAP therapy who presents to the [facility] on 08/21/[address] Sandoval secondary to persistent unrelenting right upper extremity [...] conservative therapies and treatments, admitted per Dr. Sandoval, 08/21/24 right shoulder arthroscopy, subacromial decompression, debridement, [...] given recentOR. Charges/Coding Visit Charges Inpatient E&M: 03900 Subs Hosp L3 08/21/24 1967 <Electronically signed by Leana Vaca MD> Cosigner Signature (if applicable): CC: ~ Signed [facility] Work Phone: 1(483) 150-959905-14-2025 Evaluation note* Diagnosis Onset Date Resolution Status Admit Date Arthrosis of right acromioclavicular joint acute August 3:46pm Primary osteoarthritis, righ t shoulder acute August 21, 2024 3 :46pm Right rotator cuff tear acute [facility] 2024 3:46pm Right shoulder pain acute August 082024 3:46pm Arthrosis of right acromioclavicular joint acute August 10:08am Primary osteoarthritis, righ t shoulder acute September 03, 2024 1 0:08am Right rotator cuff tear acute [facility] 2024 10:08am Right shoulder pain acute August 092024 10:08am Arthrosis of right acromioclavicular joint acute September 11:03am Primary osteoarthritis, righ t shoulder acute October 01, 2024 11:03am Right rotator cuff tear acute [facility] 2024 11:03am Right shoulder pain acute October 01, 2024 11:03am Arthrosis of right acromioclavicular joint acute October 11:15am Primary osteoarthritis, righ t shoulder acute October 28, 2024 11:15am Right rotator cuff tear acute J olivia2024 11:15am Right shoulder pain acute October 28, 2024 11:15am Arthrosis of right acromioclavicular joint acute November 082024 10:45am Primary osteoarthritis, righ t shoulder acute November 19 10:45am Right rotator cuff tear acute A ugust 2024 10:45am [facility] Work Phone: 1([phone]) 191-870805-14-2025 Progress note [facility] Medical Records Department [address] [place] [address] Progress Note - Hospitalist 08/21/24 1610 MR#: [id number] Acct: [id number] Name: NENA KRISHNAN Rep #:[id number] : 1955 69 From: Leana Vaca MD PCP: Dr. Olivia Gates, DO Status:ADM IN Location: [facility] LR117-0 Reason for Visit Reason for Visit: Diagnoses [...] with PAP therapy who presents to the [facility] on 08/21/[address] Sandoval secondary to persistent unrelenting right upper extremity [...] with PAP therapy who presents to the [facility] on 08/21/[address] Sandoval secondary to persistent unrelenting right upper extremity [...] conservative therapies and treatments, admitted per Dr. Sandoval, 08/21/24 right shoulder arthroscopy, subacromial decompression, debridement, [...] given recentOR. Charges/Coding Visit Charges Inpatient E&M: 34152 Subs Hosp L3 08/21/24 1648 Cosigner Signature (if applicable): CC: ~ Signed [facility]05-14-2025 Consult note Author Troy misbah [facility] Note Date/Time August 21, 2024 11:43 am [facility] Medical Records Department [address] [place] [address] Anesthesia Postop Eval II 08/21/24 1143 MR#: [id number] Acct: [id number] Name: NENA KRISHNAN Rep #:[id number] : 1955 69 From: Troy Wilkins MD PCP: Dr. Olivia Gates, DO Status:REG SDC Y Race: C Location: [facility]02- Anesthesia Postop Eval I Sum Postop Eval Completion status Anesthesia document: Postop Eval 1 completed: Yes Anesthesia Postop Eval I Summary Anesthesia Postop Eval I Summary: Anesthesia Postop Eval I: Assessment Summary Airway patent Yes 08/21/24 11:00 BISQUE KILN PLACER.HBARR Spontaneous unlabored Yes 08/21/24 11:00 BISQUE KILN [employer]ACER.HBARR respirations Mental status Awake 08/21/24 11:00 BISQUE KILN PLACER.HBARR nausea No 08/21/24 11:00 BISQUE KILN PLACER.HBARR Vomiting No 08/21/24 11:00 BISQUE KILN PLACER.HBARR Anesthesia Postop Eval I: Fluid Summary Crystalloid volume administer 8,000 08/21/24 11:00 BISQUE KILN PLACER.HBARR (ml) Colloids volume administered ( ml) Blood Product volume administered (ml) Total IV fluid infused 8,000 08/21/24 11:00 BISQUE KILN PLACER.HBARR Anesthesia Postop Eval I: Summary Notes Anesthesia Complication No 08/21/24 11:00 BISQUE KILN PLACER.HBARR Anesthesia Complication Comment: Post-operative progress note Anesthesia: Postop Eval II Evaluation Mental status: Awake Pain Level: 0 nausea: No Vomiting: No 08/21/24 1143 <Electronically signed by Troy Wilkins MD > Date _ Troy Wilkins MD Cosigner Signature: Date CC: ~ Signed [facility] Work Phone: 1(940) 800-944605-14-2025 Consult note Author Priscila Morales [facility] Note Date/Time August 21, 2024 11:00 am [facility] Medical Records Department [address] [place] [address] Anesthesia Postop Eval I 08/21/24 1100 MR#: [id number] Acct: [id number] Name: NENA KRISHNAN Rep #:[id number] : 1955 69 From: Priscila Morales CRNA PCP: Dr. Olivia Gates, DO Status:REG SDC Y Race: C Location: [facility]05-11 Anesthesia: Postop Eval I Current Vital Signs [...] Yes 08/21/24 1100 <Electronically signed by Priscila MADRIGAL> Date _ Priscila Morales BISQUE KILN PLACER Cosigner Signature: Date CC: ~ Signed [facility] Work Phone: 1(578) 709-278805-14-2025 Discharge summary Author Macario Sandoval [facility] Note Date/Time August 21, 2024 10:40 am [facility] Medical Records Department [address] [place] [address] Instructions for Home/Discharge Instructions 08/21/24 1038 MR#: [id number] Acct: [id number] Name: NENA KRISHNAN Rep #:[id number] : 1955 69 From: Macario Sandoval MD PCP: Dr. Olivia Gates, DO Status:REG [facility] Discharge Instructions Diet Discharge Diet: No restrictions [...] Up Care Please Follow Up With: Macario Sandoval MD When: next week Test Results: Test results from this visit will be discussed in further detail at your follow- up appointment, if applicable. Discharge Plan Admission Attending Provider: Macario Sandoval Primary Care Provider: Olivia Gates Instructions Patient Instructions: After Shoulder Arthroscopy Print Language: Libyan Discharge Orders/Prescriptions Prescriptions: New oxycodone-acetaminophen [Percocet] 5-325 [...] monday Rx Instructions: takes on monday hydrocodone-acetaminophen [[place]] 1 EACH tablet 1 ea PO TID [...] Gates DO [Primary Care Provider] - Macario Sandoval MD [Med Staff - Active Staff] - Disposition Disposition (needs filled in before D/C Order can be placed): Home, Self Care 08/21/24 1040<Electronically signed by Macario Sandoval MD>Macario Sandoval MD CC: Dr. Olivia Gates DO ~ Signed [facility] Work Phone: 1([phone]) 592-331705-14-2025 Consult note [facility] Medical Records Department [address] [place] [address] Anesthesia Postop Eval II 08/21/24 1143 MR#: [id number] Acct: [id number] Name: NENA KRISHNAN Rep #:[id number] : 1955 69 From: Troy Wilkins MD PCP: Dr. Olivia Gates, DO Status:REG SDC Y Race: C Location: [facility]02- Anesthesia Postop Eval I Sum Postop Eval Completion status Anesthesia document: Postop Eval 1 completed: Yes Anesthesia Postop Eval I Summary Anesthesia Postop Eval I Summary: Anesthesia Postop Eval I: Assessment Summary Airway patent Yes 08/21/24 11:00 BISQUE KILN PLACER.HBARR Spontaneous unlabored Yes 08/21/24 11:00 BISQUE KILN PLACER.HBARR respirations Mental status Awake 08/21/24 11:00 BISQUE KILN PLACER.HBARR nausea No 08/21/24 11:00 BISQUE KILN PLACER.HBARR Vomiting No 08/21/24 11:00 BISQUE KILN PLACER.HBARR Anesthesia Postop Eval I: Fluid Summary Crystalloid volume administer 8,000 08/21/24 11:00 BISQUE KILN PLACER.HBARR (ml) Colloids volume administered ( ml) Blood Product volume administered (ml) Total IV fluid infused 8,000 08/21/24 11:00 BISQUE KILN PLACER.HBARR Anesthesia Postop Eval I: Summary Notes Anesthesia Complication No 08/21/24 11:00 BISQUE KILN PLACER.HBARR Anesthesia Complication Comment: Post-operative progress note Anesthesia: Postop Eval II Evaluation Mental status: Awake Pain Level: 0 nausea: No Vomiting: No 08/21/24 1143 > Date _ Troy Wilkins MD Cosigner Signature: Date CC: ~ Signed [facility]05-14-2025 History and physical note Author Macario Sandoval [facility] Note Date/Time August 21, 2024 9:03a [facility] Medical Records Department [address] [place] [address] History & Physical Exam 08/21/24 0854 MR#: [id number] Acct: [id number] Name: NENA KRISHNAN Rep #:[id number] : 1955 69 From: Macario Sandoval MD PCP: Dr. Olivia Gates, DO Status:REG [facility] Location: [place] [address] HPI - General HPI Narrative NENA KRISHNAN, is a 69 F who presents for right shoulder arthroscopy, subacromial decompression, distal clavicle excision, rotator cuff repair. No changes to history and physical exam. Risks alternatives benefits discussed as well as postoperative instructions and narcotic counseling. Right shoulder marked. Patient understands wishes to proceed no further questions or concerns. MR#: [id number] Acct: [id number] Name: NENA KRISHNAN Rep #: [id number] : 1955 Provider: Dr. Macario Sandoval MD Age/Sex: 69/F Location: [facility] Status: Signed Intake Vital Signs 05/30/2512:25 07/05/2508:44 [...] PRN Pain 06/22/17 07/05/24 H istory 5mg-325mg ([place]) budesonide 180 mcg/actuation 2 puff inhalation BID [...] the decisions made by me, Dr. Macario Sandoval MD 07/05/24 0584. Part of today?s visit was documented by [...] therapyas well as home-based exercises. Supplemental Info [facility] Imaging Services [address] [place] [address] Upper Ext Joint Only(Routine) MR#: [id number] Acct: [id number] Name: NENA KRISHNAN Rep #: [id number] : 1955 F 69 From: Manpreet Schwarz DO PCP: Dr. Olivia Gates DO Status: REG CLI Study: Upper Ext Joint Only(Routine) Date of Exam: 06/26/24 Exam# [id number] Ordering Dr: Macario Sandoval MD PROCEDURE: MRI right shoulder without IV [...] which is diffusely diminutive. No paralabral cysts. Lngr-qq-rojkejso diffuse thinning of the glenoid cartilage. High-grade [...] capsulitis. Please correlate clinically. Reading Location: [facility] I independently reviewed the imaging. Concur with radiologist [...] blood flow before exercises. 4. Anti-Inflammatory Medications: Aalx-cqy-cdiirrb medications like ibuprofen or naproxen can help [...] elevation 4 out of 5. ER 4/5. [facility] Medical History Wears glasses Wears dentures Post-menopausal [...] TID PRN Pain 06/22/17 12/21/21 History 5mg-325mg ([place]) budesonide 180 mcg/actuation 2 puff inhalation BID [...] 2.620 08/21/24 0903 <Electronically signed by Macario Sandoval MD> Cosigner Signature (if applicable): CC: Dr. Olivia Gates DO; Dr. Macario Sandoval MD~ Signed [facility] Work Phone: 1(848) 523-971805-14-2025 Consult note [facility] Medical Records Department [address] [place] [address] Anesthesia Postop Eval I 08/21/24 1100 MR#: [id number] Acct: [id number] Name: NENA KRISHNAN Rep #:[id number] : 1955 69 From: Priscila Morales CRNA PCP: Dr. Olivia Gates, DO Status:REG [facility] Y Race: C Location: [place] [address] Anesthesia: Postop Eval I Current Vital Signs [...] 08/21/24 1100 NA> Date _ Priscila Morales B[employer]ACER Cosigner Signature: Date CC: ~ Signed [facility]05-14-2025 Discharge summary [facility] Medical Records Department [address] [place] [address] Instructions for Home/Discharge Instructions 08/21/24 1038 MR#: [id number] Acct: [id number] Name: NENA KRISHNAN Rep #:[id number] : 1955 69 From: Macario Sandoval MD PCP: Dr. Olivia Gates, DO Status:REG [facility] Discharge Instructions Diet Discharge Diet: No restrictions [...] Up Care Please Follow Up With: Macario Sandoval MD When: next week Test Results: Test results from this visit will be discussed in further detail at your follow- up appointment, if applicable. Discharge Plan Admission Attending Provider: Macario Sandoval Primary Care Provider: Olivia Gates Instructions Patient Instructions: After Shoulder Arthroscopy Print Language: Libyan Discharge Orders/Prescriptions Prescriptions: New oxycodone-acetaminophen [Percocet] 5-325 [...] monday Rx Instructions: takes on monday hydrocodone-acetaminophen [[place]] 1 EACH tablet 1 ea PO TID [...] Gates DO [Primary Care Provider] - Macario Sandoval MD [Med Staff - Active Staff] - Disposition Disposition (needs filled in before D/C Order can be placed): Home, Self Care 08/21/24 1040Macario Sandoval MD CC: Dr. Olivia Gates, DO ~ Signed [facility]05-14-2025 Procedure note [facility] Medical Records Department [address] [place] [address] Operative Report 08/21/24 1028 MR#: [id number] Acct: [id number] Name: NENA KRISHNAN Rep #:[id number] : 1955 69 From: Macario Sandoval MD PCP: Dr. Olivia Gates, Status:REG [facility] Location: [place] [address] Problems Associated Problem List Diagnoses (1) Arthrosis [...] debridement, distal clavicle excision, rotator cuff repair hospital coder: Yes Neonatal Pediatric Nurse: graham Tasks completed by assistant quality manager: Retracting Additional minister assistant?: No Type of Anesthesia: Block,Regional and [...] up in [place]. cpt [address], [address], 368[address], 63507? Surgical Findings: As above Complications Complications: No Admit VTE Documentation VTE Present on Admission: No VTE Mechan Device Prophylaxis: SCD's VTE Pharm Prophylaxis ordered?: No Reason prophylaxis not ordered: Treatment Not Indicated 08/21/24 1037 Cosigner Signature (if applicable): CC: Dr. Olivia Gates DO; Dr. Macario Sandoval MD~ Signed [facility]05-14-2025 Consult note [facility] Note Date/Time August 21, 2024 8:10a m [facility] Medical Records Department [address] [place] [address] Pre-Anesthesia Evaluation 08/21/24 0802 MR#: [id number] Acct: [id number] Name: NENA KRISHNAN Rep #:[id number] : 1955 69 From: Alex Cade MD PCP: Dr. Olivia Gates DO Status:REG SDC Y Race: C Location: [place] [address]1 ASA Classification* ASA Classification ASA Classification: 3 [...] 14:12 5 RBC 4.76 M/mm3 (4.2-5.4) 08/20/24 14:08/20/24 Hgb 11.7 g/dL (12.0-15.0) L 08/20/24 14:12 [...] 14:12 08/20/24 TSH 2.620 uIU/mL (0.300-4.200) 08/20/24 14:12 08/08 07/02 COAG PT 13.9 SECONDS (11.7-14.9) 07/22/18 19:14 Pre-Assessment Diagnosis/Proposed Procedure Planned Operative Procedure(s): RIGHT SHOULDER ARTHROSCOPY SUBCROMIAL DECOMPRESSION DISTAL CLAVICLE RTC REPAIR Anesthesia History Anesthesia History - seam checker: Anesthesia History - seam checker Hx Hospitalization No 08/16/24 13:41 Any Problems [...] sips of water?: Yes PONV PONV - seam checker: PONV - seam checker Female Yes 08/16/24 13:41 HX of Motion [...] 08/21/24 07:34 Respiratory Assessment Respiratory Assessment - seam checker: Respiratory Tract Infection Hx - seam checker Hx Respiratory Tract Infection No 08/16/24 13:41 STOP Sleep Apnea STOP Sleep Apnea - seam checker: STOP Sleep Apnea - seam checker Hx Hypertension Yes: CONTROLLED WITH MED 08/16/24 [...] Tobacco Use History Tobacco Use History - seam checker: Tobacco Use History - seam checker Tobacco Use Smoking Status Never smoker 08/16/24 13:41 Hx Tobacco Use No 08/16/24 13:41 Years Smoking Packs Smoked per Day Smoking Cessation Date was within the last 15 years Hx Smoking Cessation Date Hx Smoking Cessation No 08/16/24 13:41 Counseling Hematologic Medial History Hematologic Hx - seam checker: 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 08/21/24 0810 <Electronically signed by Alex villavicencio MD> Date _ Alex Cade MD Cosigner Signature: Date CC: ~ Signed [facility] Work Phone: 1(459) 880-859205-14-2025 History and physical note [facility] Medical Records Department [address] [place] [address] History & Physical Exam 08/21/24 0854 MR#: [id number] Acct: [id number] Name: NENA KRISHNAN Rep #:[id number] : 1955 69 From: Macario Sandoval MD PCP: Dr. Olivia Gates, DO Status:[facility] Location: [place] [address] HPI - General HPI Narrative NENA KRISHNAN, is a 69 F who presents for right shoulder arthroscopy, subacromial decompression, distal clavicle excision, rotator cuff repair. No changes to history and physical exam. Risks alternatives benefits discussed as well as postoperative instructions and narcotic counseling. Right shoulder marked. Patient understands wishes to proceed no further questions or concerns. MR#: [id number] Acct: [id number] Name: NENA KRISHNAN Rep #: [id number] : 1955 Provider: Dr. Macario Sandoval MD Age/Sex: 69/F Location: [facility] Status: Signed Intake Vital Signs 05/30/2512:25 07/05/2508:44 [...] PRN Pain 06/22/17 07/05/24 H istory 5mg-325mg ([place]) budesonide 180 mcg/actuation 2 puff inhalation BID [...] by me, Dr. Roberto Carlos MD 07/05/24 3870. Part of today?s visit was documented by [...] therapyas well as home-based exercises. Supplemental Info [facility] Imaging Services [address] [place] [address] Upper Ext Joint Only(Routine) MR#: [id number] Acct: [id number] Name: NENA KRISHNAN Rep #: [id number] : 1955 F 69 From: Manpreet Schwarz DO PCP: Dr. Olivia Gates DO Status: REG CLI Study: Upper Ext Joint Only(Routine) Date of Exam: 06/26/24 Exam# [id number] Ordering Dr: Macario Sandoval MD PROCEDURE: MRI right shoulder without IV [...] which is diffusely diminutive. No paralabral cysts. Idwd-dy-hurwreyv diffuse thinning of the glenoid cartilage. High-grade [...] adhesive capsulitis. Please correlate clinically. Reading Location: [facility] I independently reviewed the imaging. Concur with radiologist [...] blood flow before exercises. 4. Anti-Inflammatory Medications: Ztpq-lrn-daivrle medications like ibuprofen or naproxen can help [...] elevation 4 out of 5. ER 4/5. [facility] Medical History Wears glasses Wears dentures Post-menopausal [...] TID PRN Pain 06/22/17 12/21/21 History 5mg-325mg ([place]) budesonide 180 mcg/actuation 2 puff inhalation BID [...] CC: Dr. Olivia Gates DO; Dr. Macario Sandoval MD~ Signed [facility]05-14-2025 [facility] Medical Records Department [address] [place] [address] History Physical Exam 08/21/24 0854 MR#: [id number] Acct: [id number] Name: NENA KRISHNAN Rep #: [id number] : 1955 69 From: Macario Sandoval MD PCP: Dr. Olivia Gates, DO Status:REG [facility] Location: [place] [address] HPI - General HPI Narrative NENA KRISHNAN, is a 69 F who presents for right shoulder arthroscopy, subacromial decompression, distal clavicle excision, rotator cuff repair. No changes to history and physical exam. Risks alternatives benefits discussed as well as postoperative instructions and narcotic counseling. Right shoulder marked. Patient understands wishes to proceed no further questions or concerns. MR#: [id number] Acct: [id number] Name: NENA KRISHNAN Rep #: [id number] : 1955 Provider: Dr. Macario Sandoval MD Age/Sex: 69/F Location: [facility] Status: Signed Intake Vital Signs 05/30/2512:25 07/05/2508:44 [...] TID PRN Pain 06/22/17 07/05/24 History 5mg-325mg ([place]) budesonide 180 mcg/actuation 2 puff inhalation BID [...] the decisions made by me, Dr. Macario Sandoval MD 07/05/24 8256. Part of today???s visit was documented by [...] as well as home-based exercises. Supplemental Info [facility] Imaging Services [address] [place] [address] Upper Ext Joint Only(Routine) MR#: [id number] Acct: [id number] Name: NENA KRISHNAN Rep #: [id number] : 1955 F 69 From: Manpreet Schwarz DO PCP: Dr. Olivia Gates, DO Status: REG CLI Study: Upper Ext Joint Only(Routine) Date of Exam (more content not included)...[facility]05-14-2025 Consult note [facility] Medical Records Department [address] [place] [address] Pre-Anesthesia Evaluation 08/21/24 0802 MR#: [id number] Acct: [id number] Name: NENA KRISHNAN Rep #:[id number] : 1955 69 From: Alex Cade MD PCP: Dr. Olivia Gates, DO Status:REG [facility] Y Race: C Location: [place] [address] ASA Classification* ASA Classification ASA Classification: 3 [...] CLAVICLERTC REPAIR Anesthesia History Anesthesia History - seam checker: Anesthesia History - seam checker Hx Hospitalization No 08/16/24 13:41 Any Problems [...] sips of water?: Yes PONV PONV - seam checker: PONV - seam checker Female Yes 08/16/24 13:41 HX of Motion [...] 08/21/24 07:34 Respiratory Assessment Respiratory Assessment - seam checker: Respiratory Tract Infection Hx - seam checker Hx Respiratory Tract Infection No 08/16/24 13:41 STOP Sleep Apnea STOP Sleep Apnea - seam checker: STOP Sleep Apnea - seam checker Hx Hypertension Yes: CONTROLLED WITH MED 08/16/24 [...] Tobacco Use History Tobacco Use History - seam checker: Tobacco Use History - seam checker Tobacco Use Smoking Status Never smoker 08/16/24 13:41 Hx Tobacco Use No 08/16/24 13:41 Years Smoking Packs Smoked per Day Smoking Cessation Date was within the last 15 years Hx Smoking Cessation Date Hx Smoking Cessation No 08/16/24 13:41 Counseling Hematologic Medial History Hematologic Hx - seam checker: 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 08/21/2410 maye OZUNA> Date _ Alex Cade MD Cosigner Signature: Date CC: ~ Signed [facility]03-28-2025 Evaluation note* Diagnosis Onset Date Resolution Status [...] 11:03am Right rotator cuff tear acute [facility] 2024 11:03am Right shoulder pain acute October 01, 2024 11:03am [place] [employer] Work Phone: 1(554) 327-116903-28-2025 Evaluation note* Diagnosis Onset Date Resolution Status Admit Date Arthrosis of right acromioclavicular joint acute July 052024 9:43am Primary osteoarthritis, righ t shoulder acute July 05, 2024 9:43am Right rotator cuff tear acute [facility] 2024 9:43am Right shoulder pain acute July 05, 2024 9:43am Arthrosis of right acromioclavicular joint acute August 3:46pm Primary osteoarthritis, righ t shoulder acute August 21, 2024 3 :46pm Right rotator cuff tear acute [facility] 2024 3:46pm Right shoulder pain acute August 082024 3:46pm Arthrosis of right acromioclavicular joint acute August 10:08am Primary osteoarthritis, righ t shoulder acute September 03, 2024 1 0:08am Right rotator cuff tear acute [facility] 2024 10:08am Right shoulder pain acute August 092024 10:08am Arthrosis of right acromioclavicular joint acute September 11:03am Primary osteoarthritis, righ t shoulder acute October 01, 2024 11:03am Right rotator cuff tear acute J [facility] 2024 11:03am Right shoulder pain acute October 01, 2024 11:03am Arthrosis of right acromioclavicular joint acute October 11:15am Primary osteoarthritis, righ t shoulder acute October 28, 2024 11:15am Right rotator cuff tear acute [facility] 2024 11:15am Right shoulder pain acute October 28, 2024 11:15am [place] [employer] [facility] Work Phone: 1(704) 158-343002-20-2025 Evaluation note* Diagnosis Onset Date Resolution Status Admit Date Right rib fracture acute 2024 1:18pm Right shoulder pain acute 2024 1:18pm [facility] Work Phone: 1(346) 442-575502-20-2025 Evaluation note* Diagnosis Onset Date Resolution Status Admit Date Right rib fracture acute 2024 1:18pm Right shoulder pain acute 2024 1:18pm Arthrosis of right acromioclavicular joint acute July 052024 9:43am Primary osteoarthritis, righ t shoulder acute July 05, 2024 9:43am Right rotator cuff tear acute M 2024 9:43am Right shoulder pain acute July 05, 2024 9:43am [facility] Work Phone: 1(655) 539-296502-20-2025 Evaluation note* Diagnosis Onset Date Resolution Status [...] 3 :46pm Right rotator cuff tear acute [facility] 2024 3:46pm Right shoulder pain acute August 082024 3:46pm [facility] Work Phone: 1(114) 324-519902-20-2025 Evaluation note* Diagnosis Onset Date Resolution Status [...] 3 :46pm Right rotator cuff tear acute [facility] 2024 3:46pm Right shoulder pain acute August 082024 3:46pm Arthrosis of right acromioclavicular joint acute August 10:08am Primary osteoarthritis, righ t shoulder acute September 03, 2024 1 0:08am Right rotator cuff tear acute 2024 10:08am Right shoulder pain acute August 092024 10:08am [place] [employer] Work Phone: 1([phone]) 370-925903-06-2024 Procedure [facility] 11-07-2022 Discharge summary Author Federico Arango [facility] November 07, 2022 5:50pm Note Date/Time November 07, 2022 5:03 pm [facility] Medical Records Department [address] [place] [address] Emergency Department Summary 11/07/22 MR#: [id number] Acct: [id number] Name: NENA KRISHNAN Rep #:[id number] : 1955 67 From: Federico Arango MD [...] [Rx Last Taken 06/16/18] hydrocodone-acetaminophen 5-325mg 5mg-325mg ([place]) 1 ea PO TID PRN Pain 06/22/17 [...] The EKG is normal. Rate is 61. AL interval 168 ms. QRS duration 78 ms. QT duration 472 ms. [place] is normal. Treatment and Re-Evaluation Narrative: Patient [...] PRN (Reason: Asthma) Qty: 1 0RF hydrocodone-acetaminophen [[place]] 1 EACH tablet 1 ea PO TID [...] your Primary Care Provider. Call [facility] ([phone]) or report to the closest Emergency Room. Call 911 if necessary. 11/07/22 1750 <Electronically signed by Federico Arango MD> Cosigner Signature (if applicable): CC: Dr. Olivia Gates, ~ Signed [facility] Work Phone: 1(748) 154-823507-31-2023 Hospital Discharge instructions Additional Instructions 1. Apply ice 6-10 times a day 2. Take the hydrocodone and acetaminophen tablets were prescribed by your doctor for the pain for the next couple of days.[facility] Work Phone: Discharge summary Author Gunnar Ocampo [facility] Note Date/Time December 28, 2024 1:26pm [facility] Medical Records Department [address] [place] [address] Emergency Department Summary 12/28/24 MR#: [id number] Acct: [id number] Name: NENA KRISHNAN Rep #:[id number] : 1955 69 From: Gunnar Ocampo MD PCP: Dr. Olivia Gates DO Status:DEP ER Location: ED HPI History of Present Illness Chief Complaint: Upper Extremity Injury Narrative Narrative: 69-year-old female, udgwi-ieel-sasgkion, has previous surgery for right rotator cuff tear and osteoarthritis. She relates history that in August she had surgery by Dr. Macario Sandoval, approximately 4 months ago. She has had continuing pain ever since. She states that he did arthroscopic surgery on her in attempt to patch her rotator cuff, but states that she really needs a right shoulder replacement but her insurance has not approved it as of yet. She has chronic pain in her right shoulder for which she takes Vicodin 3 times a day. She called squad today because of intractable right shoulder pain to the point whereit is making her whole body tense. She denies any fevers or chills, no new symptoms from her chronic right shoulder pain. [facility] Medical History RAJNI (obstructive sleep apnea) Morbid [...] disease) Hypothyroidism HTN (hypertension) Chronic back pain Home [...] 05/20/17 12/19/21 History mcg (50,000 unit) capsule budesonide 180 [...] / Time No Known Allergies Allergy Verified 12/28/24 11:10 Family History Father Cancer Mother Cancer Sister Cancer Brother Cancer Surgical History S/P rotator cuff repair History of esophagogastroduodenoscopy (EGD) Hx of colonoscopy History of back surgery History of cholecystectomy History of hysterectomy History of back surgery History of hernia repair Social History household members: children housing: apartment Smoking Status: Never smoker second hand exposure: No alcohol intake: never substance use type: does not use ROS ROS ED ROS Narrative Review of systems positive for chronic right shoulder pain. No fevers or chills. Pain worse with movement. States pain is making her whole body tense. No relieving symptoms. EXAM Physical Exam Narrative Exam Narrative: Afebrile. Vital signs noted. Nontoxic-appearing. Cardiovascular examination regular rate and rhythm. Lungs clear to auscultation bilaterally. No crepitance of right shoulder. Full range of motion. Neurovasc intact distally with palpable radial pulse. No noted erythema. Const Vital Signs: 12/28/24 11:08 Temperature 98.3 F Temperature Source Oral Pulse Rate 73 Respiratory Rate 19 H Blood Pressure 155/128 H Blood Pressure Mean 137 Pulse Ox 98 Oxygen Delivery Method Room Air MDM MDM MDM Narrative Medical decision making narrative: Differential diagnosis includes but not limited to septic arthritis versus chronic right shoulder pain versus dislocation versus fracture. History and physical does not support the latter 2 diagnoses. I had a camille discussion withthe patient regarding her visit to the emergency department today. She states that she would like relief from her chronic pain. She was administered morphine4 mg intramuscularly. Additionally, I obtained imaging of the right shoulder. On my independent interpretation of her right shoulder x-rays there is no evidence of an acute fracture or dislocation. I reviewed the radiology report which confirms my independent interpretation. At this point in time, I will discuss with her further management of her chronicpain. She should follow-up with Dr. Sandoval with orthopedics. She states she usually takes Vicodin 7.5 mg as written by her primary care provider 3 times a day. I gave her a 5 mg Vicodin here in the emergency department. She may need to follow-up with pain management in the future. I do not feel that she needs further stat imaging of her right shoulder as her pain is chronic. Disposition is discharged home in stable condition. History & Record Review Discussion w/independent historian: Patient Additional record(s) reviewed:: Prior ED visit (Seen for shoulder pain from trauma in May) Radiography Diagnostic Testing: Clinical Impression(s) from Imaging Studies Shoulder X-Ray 12/28/24 11:45 IMPRESSION: No acute osseous abnormalities. Reading Location: [facility] Discharge Plan Triage Chief Complaint: Upper Extremity Injury ED Provider: Gunnar Ocampo Dx/Rx/DC Orders Clinical Impression: Right shoulder pain, Chronic pain Instructions: ED Chronic Pain, ED Shoulder Pain, Uncertain Cause Prescriptions: No Action paroxetine HCl [Paxil] 40 MG tablet 40 mg PO DAILY trazodone 50 MG tablet 50 mg PO QHS esomeprazole magnesium [Nexium] 40 MG capsule 40 mg PO BID lorazepam 1 MG tablet 2 mg PO BID cholecalciferol (vitamin D3) 50,000 UNIT capsule 50,000 units PO KEITA Patient Comments: takes q monday Rx Instructions: takes on monday Pulmicort Flexhaler 1 PUFF inhaler 2 puff [...] 88 mcg tablet 88 mcg PO DAILY Primary Care Provider: Olivia Gates Referrals: Olivia Gates DO [Primary Care Provider, Family Practice] Macario Sandoval MD [Med Staff - Active Staff, Orthopedics] - As soon as possible Activity Restrictions/Additional Instructions: Follow-up with your primary care provider regarding your pain medication regimen. Follow-up with Dr. Sandoval regarding your shoulder and need for surgery and any additional imaging. Print Language: Libyan Disposition Disposition: Home, Self Care Discharge Date/Time: 12/28/24 13:26 What to do if you have Problems For any increased pain, shortness of breath, bleeding, nausea or vomiting, chestpain, or any unexpected problems, contact your Primary Care Provider. Call [facility] ([phone]) or report to the closest Emergency Room. Call 911 if necessary. 12/28/24 3570 <Electronically signed by Gunnar Ocampo MD> Cosigner Signature (if applicable): CC: Dr. Olivia Gates, DO ~ Signed [facility] Work Phone: Evaluation noteNo assessment information available [facility] Work Phone: Evaluation note* Diagnosis Onset Date Resolution Status Chest pain acute HTN (hypertension) chronic Hypothyroidism chronic [facility] Work Phone: Evaluation note* Diagnosis Onset Date Resolution Status Atypical chest pain acute Chest pain acute HTN (hypertension) chronic Hypothyroidism chronic [facility] Work Phone: Hospital Discharge instructions Additional Instructions DVT study negative. Knee x-ray notes arthritic changes. Continue your home hydrocodone. Follow-up with your doctor.[facility] Work Phone: Hospital Discharge instructions Additional Instructions Please make sure you are drinking plenty of fluids. Your work-up today was largely normal. I suspect you likely have some vertigo as a cause of your dizziness. You been prescribed meclizine to help with this. Take your [place] that you have at home as needed for pain. You have been given referral for a spine doctor to follow-up with for your neck. Please follow-up as we discussed with your primary care doctor.[facility] Work Phone: Hospital Discharge instructions Additional Instructions Please follow-up outpatient.[facility] Work Phone: Hospital Discharge instructionsAmbulatory Orders* PT Referral Location: None Selected [facility] Work Phone: Hospital Discharge instructionsAdditional Instructions Follow-up with your primary care provider regarding your pain medication regimen. Follow-up with Dr. Sandoval regarding your shoulder and need for surgery and any additional imaging.[facility] Work Phone: Progress note Author Macario Sandoval [facility] Note Date/Time January 06, 2025 11:55am [facility] [address] [place] [address] OFFICE VISIT Date of Service: 01/06/25 MR#: [id number] Acct: [id number] Name: NENA KRISHNAN Rep #: [id number] : 1955 Provider: Dr. Luis Sandoval MD Age/Sex: 69/F Location: [facility] Status: Signed Intake Vital Signs 12/28/24 11:08 Height 5 ft 2 in Intake Visit Reasons: RIGHT SHOULDER Chief Complaint: right shoulder concerns Is patient in pain?: Yes (Right shoulder) Pain scale (1-10): 6 Allergies No Known Allergies Allergy (Verified 01/06/25 11:12) Medications ?Medication ?Instructions ?Recorded ?Confirmed ?Type paroxetine HCl 40 mg tablet (Paxil) 40 mg PO DAILY dep ression 01/29/13 01/06/25 History trazodone 50 mg tablet 50 mg PO QHS sleep 01/29/13 01/06/25 History esomeprazole magnesium 40 mg 40 mg PO BID GERD 5 01/06/25 History capsule,delayed release (Nexium) lorazepam 1 mg tablet 2 mg PO BID anxiety 10/11/16 01/06/25 History cholecalciferol (vitamin D3) 1,250 50,000 units PO KEITA Vit D deficiency 05/20/17 01/06/25 History mcg (50,000 unit) capsule budesonide 180 mcg/actuation 2 puff inhalation BID SOB /wheezing 12/13/17 01/06/25 History breath activated powder inhaler (Pulmicort Flexhaler) losartan 50 mg tablet 50 mg PO DAILY blood pressur e 07/04/20 01/06/25 History montelukast 10 mg tablet 10 mg PO DAILY allergies 01/06/25 History albuterol sulfate 90 mcg/actuation 1 - 2 puff inhalati on Q4H PRN PRN 04/13/21 01/06/25 Rx aerosol inhaler (Ventolin HFA) Wheezing #8.5 grams azelastine 137 mcg (0.1 %) nasal 2 spray intranasal BI D PRN 12/22/21 01/06/25 History spray antihistamine albuterol sulfate 2.5 mg/3 mL 2.5 mg inhalation 4X/DAY PRN PRN 08/16/24 01/06/25 History (0.083 %) solution for nebulization shortness of breat h or wheezing levothyroxine 88 mcg tablet 88 mcg PO DAILY 08/16/24 0 01/06/25 History hydrocodone 7.5 mg-acetaminophen 1 tab PO TID 01/06/25 01/06/25 History 325 mg tablet Have you fallen in the past year?: [...] Brother Cancer Social History household members: children housing: apartment Smoking Status: Never smoker second hand exposure: No alcohol intake: never substance use type: does not use HPI RIGHT SHOULDER Details: This documentation accurately reflects the service provided and the decisions made by me, Dr. Macario Sandoval MD 01/06/25 0929. Part of today?s visit was documented by [ ], acting as scribe. NENA KRISHNAN is a 69 year old F here today for FU CT for RTSA planning. Supplemental Info [facility] [address] [place] [address] Extremity Upper without Contra MR#: [id number] Acct: [id number] Name: NENA KRISHNAN Rep #: [id number] : 1955 F 69 From: Juanito Rivas MD PCP: Dr. Olivia Gates, DO Status: REG CLI Study: Extremity Upper without Contra Date of Exam: 12/31/24 Exam# [id number] Ordering Dr: Macario Sandoval MD PROCEDURE: EXTREMITY UPPER WITHOUT CONTRA 12/31/2024 REASON FOR EXAM: PRE OPERATIVE PLANNING FOR REVERSE TOTAL TECHNIQUE: Procedure Code: CTEUWO Modality: CT Procedure: EXTREMITY UPPER WITHOUT CONTRA Coronal and Sagittal reconstruction series were provided. One or more dose reduction techniques were used (e.g., Automated exposure control, adjustment of the mA and/or kV according to patient size, use of iterative reconstruction technique. RADIATION DOSE SUMMARY: DLP: 1032 mGycm COMPARISON: None FINDINGS: There is moderate osteoarthritis of the glenohumeral articulation with subcortical cyst formation and marginal osteophytes. AC joint is aligned. There is no visible radiopaque foreign body. There is no visible muscular atrophy. There is no visible atherosclerosis. Adjacent lung shows interstitial infiltrate versus fibrosis in the right upper and middle lobe. A 0.5 cm peripheral pulmonary nodule is noted, image 95/156. CT/Extremity Upper without Contra IMPRESSION: ere is moderate osteoarthritis of the glenohumeral articulation with subcorticalcyst formation and marginal osteophytes. Adjacent lung shows interstitial infiltrate versus fibrosis in the right upper and middle lobe. A 0.5 cm peripheral pulmonary nodule is noted, image 95/156. Reading Location: [facility] Coding Level of Care Code Off vis,est,level 4 Diagnoses Primary osteoarthritis, right shoulder M19.011 Right rotator cuff tear M75.101 Assessment and Plan Assessment and Plan (1) Primary osteoarthritis, right shoulder: Status: Acute Plan: 71-year-old female follow-up CT for reverse total shoulder arthroplasty planning. Patient understands answered a few questions whether recovery from that 2 weeks in a sling 6 weeks to work on the range of motion and then strengthening after that full recovery by 6 to 12 months the patient understandswishes to go ahead with right reverse total shoulder arthroplasty. Specific surgical risks include infection which is a bad complication for a joint replacement and typically requires 2 more surgeries and 6 weeks of IV antibiotics as well as instability fracture or dislocation or other problems chronic wear or other problems with the implant. They understood no further questions or concerns pros and cons risks and benefits were discussed [...] with surgery,and signed the informed consent documentation. (2) Right rotator cuff tear: Status: Acute Clinical Quality Measures Falls Risk Screening/Assistive Devices Have you fallen in the past year?: No Ortho Exam General General: Yes no acute distress Neurologic: Yes alert and Yes oriented x3 Psychologic: Yes reasonable and appropriate 01/06/25 3960 <Electronically signed by Macario barry MD> Date _ Macario Sandoval MD [facility] Signature: Date (if applicable) CC: ~ [facility] Work Phone: Reason for referral (narrative)No reason for referral [facility] Work Phone: Chief Complaint and Reason [...] 05, 2024 9:43am Primary osteoarthritis, right shoulder arch 2024 9:43am Right rotator cuff tear [...] 2024 10:08am Primary osteoarthritis, right shoulder M 2024 10:08am Right rotator cuff tear September 03, 2024 1 0:08am Right shoulder pain September 03, 2024 10:08 am Arthrosis of right acromioclavicular donald nt October 01, 2024 11:03am Primary osteoarthritis, right shoulder J 2024 11:03am Right rotator cuff tear October [...] 2024 11:0 3am Arthrosis of right acromioclavicular donlad nt October 28, 2024 11:15am Primary osteoarthritis, right shoulder J olivia 2024 11:15am Right rotator cuff tear October 28, 2024 11:15am Right shoulder pain October 28, 2024 11:1 5am Arthrosis of right acromioclavicular donald nt November 19, 2024 10:45am Primary osteoarthritis, right shoulder A ugust 2024 10:45am Right rotator cuff tear November 19 10:45am Chief Complaint Admit Date RIGHT SHOULDER October 01, 2024 11:0 3am RIGHT SHOULDER October 28, 2024 11:1 5am RIGHT SHOULDER November 19, 2024 10 :45am upper ext December 28, 2024 11:08am RIGHT SHOULDER PLANNING RTSA December 102024 1:14pm RIGHT SHOULDER January 06, 2025 11:10am Reason for Visit Admit Date Arthrosis of right acromioclavicular donald nt October 01, 2024 11:03am Primary osteoarthritis, right shoulder J une 2024 11:03am Right rotator cuff tear October 01, 2024 11:03am Right shoulder pain October 01, 2024 11:0 3am Arthrosis of right acromioclavicular donald nt October 28, 2024 11:15am Primary osteoarthritis, right shoulder J olivia2024 11:15am Right rotator cuff tear October 28, 2024 11:15am Right shoulder pain October 28, 2024 11:1 5am Arthrosis of right acromioclavicular donald nt November 19, 2024 10:45am Primary osteoarthritis, right shoulder A ug2024 10:45am Right rotator cuff tear November 19 10:45am Primary osteoarthritis, right shoulder S eptember 2024 11:10am Right rotator cuff tear January 06, 2025 11:10am Family History No Family History Records Found Relationship Condition Age at Onset Recorded Date/T matthew father Malignant neoplasm Unknown mother Malignant neoplasm Unknown sister Malignant neoplasm Unknown brother Malignant neoplasm Unknown Advance Directives No Advanced Directives Records Found Advance Directive Response Recorded Date/ Time Advance Directives No May 18, 2015 9:17am Living Will No May 22, 3:20pm Power of Statistics Teacher No May 22, 2021 3:20pm Advance Directive Response Recorded Date/ Time Advance Directives No May 18, 2015 9:17am Living Will No December 22, 2021 2:24pm Power of Statistics Teacher No December 2:24pm Advance Directive Response Recorded Date/ Time Advance Directives No May 18, 2015 9:17am Living Will No December 22, 2021 7:02pm Power of Statistics Teacher No December 7:02pm Advance Directive Response Recorded Date/ Time Advance Directives No May 18, 2015 8:17am Living Will No May 06 4:01pm Power of Statistics Teacher No May 06, 2022 4:01pm Advance Directive Response Recorded Date/ Time Advance Directives No May 18, 2015 8:17am Living Will No June 10, 2022 12:29pm Power of Statistics Teacher No June 10 12:29pm Advance Directive Response Recorded Date/ Time Advance Directives No May 18, 2015 9:17am Living Will No November 07, 2022 5:56pm Power of Statistics Teacher No November 07 5:56pm Advance Directive Response Recorded Date/ Time Advance Directives No May 18, 2015 8:17am Living Will No February 24, 2 023 9:20am Power of Statistics Teacher No February 24, 2023 9:20am Advance Directive Response Recorded Date/ Time Advance Directives No May 18, 2015 9:17am Living Will No February 24, 2 023 10:20am Power of Statistics Teacher No February 24, 2023 10:20am Advance Directive Response Recorded Date/ Time Advance Directives No May 18, 2015 9:17am Living Will No August 21, 2023 7 :10pm Power of Statistics Teacher No August 21, 2023 7:10pm Advance Directive Response Recorded Date/ Time Living Will No May 18 4:23pm Do you have a Healthcare Power of Statistics Teacher? No May 18, 2024 4:23pm Advance Directives No May 18, 2015 9:17am Advance Directive Response Recorded Date/ Time Living Will No May 18 4:23pm Do you have a Healthcare Power of Statistics Teacher? No May 18, 2024 4:23pm Do you have a Healthcare Power of Statistics Teacher? No August 21, 2024 4:30pm Advance Directives No May 18, 2015 9:17am Advance Directive Response Recorded Date/ Time Do you have a Healthcare Power of Statistics Teacher? No August 21, 2024 4:30pm Advance Directives No May 18, 2015 9:17am Advance Directive Response Recorded Date/ Time Do you have a Healthcare Power of Statistics Teacher? No December 28, 2024 11:10am Advance Directives No May 18, 2015 9:17am [...] Role Status Dates Dr. Olivia Gates DO Family Provider Active Dr. Olivia Gates DO Primary Care Provider Active Team Status: Inactive Member Role Status Dates Dr. Olivia Gates DO Primary Care Provider Active Dr. Diego Weaver DO Emergency Provider Active Team Status: Active Member Role Status Dates Dr. Olivia Gates DO Primary Care Provider Active Dr. Nikolay Gray MD Attending Provider Active Team Status: Inactive Member Role Status Dates Dr. Olivia Gates DO Primary Care Provider Active Dr. Diego [...] Status: Inactive Member Role Status Dates Dr. Olivai Gates DO Primary Care Provider Active Dr. [...] Gumaro Palencia DO Attending Provider, Referring P vazquez Active Team Status: Active Member Role Status [...] 30, 2024 End: May 30, 2024 Macario Sandoval MD Attending Provider Active St art: May 30, 2024 End: May 30, 2024 Team Status: Inactive Member Role Status Dates Dr. Olivia Gates DO Primary Care Provider Active Start: June 26, 2024 End: June 26, 2024 Macario Sandoval MD Attending Provider Active St art: June 26, 2024 End: June 26, 2024 Macario Sandoval MD Referring Provider Active St art: June 26, 2024 End: June 26, 2024 Team Status: Inactive Member Role Status Dates Dr. Olivia Gates DO Primary Care Provider Active Start: July 05, 2024 End: July 05, 2024 Dr. Olivia Gates DO Referring Provider Active St art: July 05, 2024 End: July 05, 2024 Macario Sandoval MD Attending Provider Active St art: July [...] Provider Active Start: August 21, 2024 Macario Sandoval MD Attending Provider Active St art: August 21, 2024 Macario Sandoval MD Referring Provider Active St art: August 21, 2024 Macario Sandoval MD Other Provider Active Start: August 21, 2024 Team Status: Inactive Member Role Status Dates Dr. Olivia Gates DO Primary Care Provider Active Start: August 21, 2024 End: August 22, 2024 Macario Sandoval MD Admit Provider Active Start: August 21, 2024 End: August 22, 2024 Macario Sandoval MD Attending Provider Active St art: August 21, 2024 End: August 22, 2024 Macario Sandoval MD Referring Provider Active St art: August [...] Provider Active Start: August 21, 2024 Macario Sandoval MD Admit Provider Active Start: August 21, 2024 Macario Sandoval MD Referring Provider Active St art: August 21, 2024 Macario Sandoval MD Other Provider Active Start: August 21, 2024 Dr. Leana Vaca MD Attending Provider Active Start: August 21, 2024 Dr. Leana Vaca MD Other Provider Active St art: August 21, 2024 Team Status: Active Member Role Status Dates Dr. Olivia Gates DO Primary Care Provider Active Start: August 22, 2024 aMcario Sandoval MD Admit Provider Active Start: August 22, 2024 Macario Sandoval MD Attending Provider Active St art: August 22, 2024 Macario Sandoval MD Referring Provider Active St art: August 22, 2024 Macario Sandoval MD Other Provider Active Start: August 22, 2024 Dr. eLana Vaca MD Other Provider Active St art: August 22, 2024 Dr. Chaz Ortiz , DO Other Provider Active S tart: August 22, [...] 20, 2024 End: August 20, 2024 Macario Sandoval MD Referring Provider Active St art: August 20, 2024 End: August 20, 2024 Team Status: Inactive Member Role Status Dates Dr. Olivia Gates DO Primary Care Provider Active Start: September 03, 2024 End: September 03, 2024 Dr. Olivia Gates DO Referring Provider Active St art: September 03, 2024 End: September 03, 2024 Macario Sandoval MD Attending Provider Active St art: September 03, 2024 End: September 03, 2024 Team Status: Inactive Member Role Status Dates Dr. Olivia Gates DO Primary Care Provider Active Start: October 01, 2024 End: October 01, 2024 Dr. Olivia Gates DO Referring Provider Active St art: October 01, 2024 End: October 01, 2024 Macario Sandoval MD Attending Provider Active St art: October [...] 05, 2024 End: July 05, 2024 Macario Sandoval MD Attending Provider Active St art: July [...] 20, 2024 End: August 20, 2024 Macario Sandoval MD Referring Provider Active St art: August [...] Provider Active Start: August 21, 2024 Macario Sandoval MD Attending Provider Active St art: August 21, 2024 Macario Sandoval MD Referring Provider Active St art: August 21, 2024 Macario Sandoval MD Other Provider Active Start: August 21, 2024 Team Status: Inactive Member Role/Relationship Status Dates Dr. Olivia Gates DO Primary Care Provider Active Start: August 21, 2024 End: August 22, 2024 Macario Sandoval MD Admit Provider Active Start: August 21, 2024 End: August 22, 2024 Macario Sandoval MD Attending Provider Active St art: August 21, 2024 End: August 22, 2024 Macario Sandoval MD Referring Provider Active St art: August 21, 2024 End: August 22, 2024 Dr. Leana Vaca MD Other Provider Active St art: August 21, 2024 End: August 22, 2024 Dr. Chaz Ortiz , Other Provider Active S tart: August 21, 2024 End: August 22, 2024 Team Status: Active Member Role/Relationship Status Dates Dr. Olivia Gates DO Primary Care Provider Active Start: August 21, 2024 Macario Sandoval MD Admit Provider Active Start: August 21, 2024 Macario Sandoval MD Referring Provider Active St art: August 21, 2024 Macario Sandoval MD Other Provider Active Start: August 21, 2024 Dr. Leana Vaca MD Attending Provider Active Start: August 21, 2024 Dr. Leana Vaca MD Other Provider Active St art: August 21, 2024 Team Status: Active Member Role/Relationship Status Dates Dr. Olivia Gates DO Primary Care Provider Active Start: August 22, 2024 Macario Sandoval MD Admit Provider Active Start: August 22, 2024 Macario Sandoval MD Attending Provider Active St art: August 22, 2024 Macario Sandoval MD Referring Provider Active St art: August 22, 2024 Macario Sandoval MD Other Provider Active Start: August 22, 2024 Dr. Leana Vaca MD Other Provider Active St art: August 22, 2024 Dr. Chaz Ortiz DO Other Provider Active S tart: August 22, 2024 Team Status: Inactive Member Role/Relationship Status Dates Dr. Olivia Gates DO Primary Care Provider Active Start: September 03, 2024 End: September 03, 2024 Dr. Olivia Gates DO Referring Provider Active St art: September 03, 2024 End: September 03, 2024 Macario Sandoval MD Attending Provider Active St art: September 03, 2024 End: September 03, 2024 Team Status: Inactive Member Role/Relationship Status Dates Dr. Olivia Gates DO Primary Care Provider Active Start: October 01, 2024 End: October 01, 2024 Dr. Olivia Gates DO Referring Provider Active St art: October 01, 2024 End: October 01, 2024 Macario Sandoval MD Attending Provider Active St art: October 01, 2024 End: October 01, 2024 Team Status: Inactive Member Role/Relationship Status Dates Dr. Olivia Gates DO Primary Care Provider Active Start: October 28, 2024 End: October 28, 2024 Dr. Olivia Gates DO Referring Provider Active St art: October 28, 2024 End: October 28, 2024 Macario Sandoval MD Attending Provider Active St art: October [...] Active Member Role/Relationship Status Dates Dr. Olivia aGtes DO Primary Care Provider Active Start: August 20, 2024 End: August 20, 2024 Dr. Mino Gomez MD Attending Provider Active Start: August 20, 2024 End: August 20, 2024 Macario Sandoval MD Referring Provider Active St art: August [...] Provider Active Start: August 21, 2024 Macario Sandoval MD Attending Provider Active St art: August 21, 2024 Macario Sandoval MD Referring Provider Active St art: August 21, 2024 Macario Sandoval MD Other Provider Active Start: August 21, 2024 Team Status: Inactive Member Role/Relationship Status Dates Dr. Olivia Gates DO Primary Care Provider Active Start: August 21, 2024 End: August 22, 2024 Macario Sandoval MD Admit Provider Active Start: August 21, 2024 End: August 22, 2024 Macario Sandoval MD Attending Provider Active St art: August 21, 2024 End: August 22, 2024 Macario Sandoval MD Referring Provider Active St art: August 21, 2024 End: August 22, 2024 Dr. Leana Vaca MD Other Provider Active St art: August 21, 2024 End: August 22, 2024 Dr. Chaz Ortiz , DO Other Provider Active S tart: August 21, 2024 End: August 22, 2024 Team Status: Active Member Role/Relationship Status Dates Dr. Oilvia Gates DO Primary Care Provider Active Start: August 21, 2024 Macario Sandoval MD Admit Provider Active Start: August 21, 2024 Macario Sandoval MD Referring Provider Active St art: August 21, 2024 Macario Sandoval MD Other Provider Active Start: August 21, 2024 Dr. Leana Vaca MD Attending Provider Active Start: August 21, 2024 Dr. Leana Vaca MD Other Provider Active St art: August 21, 2024 Team Status: Active Member Role/Relationship Status Dates Dr. Olivia Gates DO Primary Care Provider Active Start: August 22, 2024 Macario Sandoval MD Admit Provider Active Start: August 22, 2024 Macario Sandoval MD Attending Provider Active St art: August 22, 2024 Macario Sandoval MD Referring Provider Active St art: August 22, 2024 Macario Sandoval MD Other Provider Active Start: August 22, 2024 Dr. Leana Vaca MD Other Provider Active St art: August 22, 2024 Dr. Chaz Ortiz DO Other Provider Active S tart: August 22, 2024 Team Status: Inactive Member Role/Relationship Status Dates Dr. Olivia Gates DO Primary Care Provider Active Start: September 03, 2024 End: September 03, 2024 Dr. Olivia Gates DO Referring Provider Active St art: September 03, 2024 End: September 03, 2024 Macario Sandoval MD Attending Provider Active St art: September 03, 2024 End: September 03, 2024 Team Status: Inactive Member Role/Relationship Status Dates Dr. Olivia Gates DO Primary Care Provider Active Start: October 01, 2024 End: October 01, 2024 Dr. Olivia Gates DO Referring Provider Active St art: October 01, 2024 End: October 01, 2024 Macario Sandoval MD Attending Provider Active St art: October 01, 2024 End: October 01, 2024 Team Status: Inactive Member Role/Relationship Status Dates Dr. Olivia Gates DO Primary Care Provider Active Start: October 28, 2024 End: October 28, 2024 Dr. Olivia Gates DO Referring Provider Active St art: October 28, 2024 End: October 28, 2024 Macario Sandoval MD Attending Provider Active St art: October 28, 2024 End: October 28, 2024 Team Status: Inactive Member Role/Relationship Status Dates Dr. Olivia Gates DO Primary Care Provider Active Start: November 19, 2024 End: November 19, 2024 Dr. Olivia Gates DO Referring Provider Active St art: November 19, 2024 End: November 19, 2024 Macario Sandoval MD Attending Provider Active St art: November 19, 2024 End: November 19, 2024 Team Status: Active Member Role/Relationship Status Dates Dr. Olivia Gates DO Primary care physician Active Team Status: Inactive Member Role/Relationship Status Dates Dr. Olivia Gates DO Primary care physician Active Start: October 01, 2024 End: October 01, 2024 Dr. Olivia Gates DO Referring Provider Active St art: October 01, 2024 End: October 01, 2024 Macario Sandoval MD Attending physician Active S tart: October 01, 2024 End: October 01, 2024 Team Status: Inactive Member Role/Relationship Status Dates Dr. Olivia Gates DO Primary care physician Active Start: October 28, 2024 End: October 28, 2024 Dr. Olivia Gates DO Referring Provider Active St art: October 28, 2024 End: October 28, 2024 Macario Sandoval MD Attending physician Active S tart: October 28, 2024 End: October 28, 2024 Team Status: Inactive Member Role/Relationship Status Dates Dr. Olivia Gates DO Primary care physician Active Start: November 19, 2024 End: November 19, 2024 Dr. Olivia Gates DO Referring Provider Active St art: November 19, 2024 End: November 19, 2024 Macario Sandoval MD Attending physician Active S tart: November 19, 2024 End: November 19, 2024 Team Status: Inactive Member Role/Relationship Status Dates Dr. Olivia Gates DO Primary care physician Active Start: December 28, 2024 End: December 28, 2024 Gunnar Ocampo MD Attending physician Active Sta rt: December 28, 2024 End: December 28, 2024 Gunnar Ocampo MD Emergency Department Physician Active Start: December 28, 2024 End: December 28, 2024 Team Status: Inactive Member Role/Relationship Status Dates Dr. Olivia Gates DO Primary care physician Active Start: December 31, 2024 End: December 31, 2024 Macario Sandoval MD Attending physician Active S tart: December 31, 2024 End: December 31, 2024 Macario Sandoval MD Referring Provider Active St art: December 31, 2024 End: December 31, 2024 Team Status: Inactive Member Role/Relationship Status Dates Dr. Olivia Gates DO Primary care physician Active Start: January 06, 2025 End: January 06, 2025 Dr. Olivia Gates DO Referring Provider Active St art: January 06, 2025 End: January 06, 2025 Macario Sandoval MD Attending physician Active S tart: January 06, 2025 End: January 06, 2025 INFORMATION SOURCE (unrecogn ized section and content) DATE CREATED AUTHOR 02/21/2025 [facility] FOR RECORDS PERTAINING TO PATIENTS WHO ARE [...] BE BASED ON THE PRIMARY CLINICAL RECORDS. [facility] [facility]. provides no warranty or guarantee of the accuracy or completeness of information in this document.
[2025-03-06 12:31] LABS: Anion Gap 11 (5-15); BUN 12 mg/dL (4-19); BUN/Creat Ratio 14.1 RATIO (10-20); Calcium,Total 8.6 mg/dL (7.6-11.0); Carbon Dioxide 28.7 mmol/L (21.0-32.0); Chloride 103 mmol/L (98-108); Estimated Creatinine Clearance 72.88 ml/min (50-250); Glucose 116 mg/dL (70-99); Potassium 3.3 mmol/L (3.3-5.1)
[2025-03-06 13:54] VITALS: BP 153/72; PULSE 68; RESP 14; O2SAT 96
--- NOTE | 2025-03-06 14:00 | CT_ITS ---
PROCEDURE: ABDOMEN/PELVIS W IV CONT ONLY 03/06/2025 REASON FOR EXAM: ABDOMINAL PAIN WITH GUARDING TECHNIQUE: Procedure Code: [id number] Modality: CT Procedure: ABDOMEN/PELVIS W IV CONT ONLY Coronal and Sagittal reconstruction series were provided. CONTRAST: 100 cc of Isovue 370 One or more dose reduction techniques were used (e.g., Automated exposure control, adjustment of the mA and/or kV according to patient size, use of iterative reconstruction technique. COMPARISON: 05/05/2023 FINDINGS: Lung bases: Unchanged scattered ground-glass opacities in the visualized left lung base which may represent persistent atypical infection versus scarring. Liver: Normal size. No mass. Gallbladder: Surgically absent. No biliary ductal dilatation. Spleen: Normal size. Pancreas: Normal size without evidence of mass surrounding inflammation or ductal dilation. Adrenals: No masses. Kidneys: Right renal cyst measures 4.0 x 4.8 cm. No renal calculi or hydronephrosis. Bladder: Unremarkable. Reproductive Organs: Prior hysterectomy. Adnexal regions are unremarkable. Bowel: No bowel obstruction. No inflammatory changes Appendix: The appendix is not identified. There is no inflammatory process identified in the right lower quadrant to suggest appendicitis. Lymph nodes: Unremarkable. Vasculature: Mild diffuse atherosclerotic calcifications are noted. No aneurysm. Peritoneum / Retroperitoneum: No free fluid or air. Bones: Grade 1 retrolisthesis of L5 on L4 by 5 mm. Posterior spinal fusion from L4-S1. Diffuse degenerative changes. No acute fractures. CT/Abdomen/Pelvis W IV Cont ONLY IMPRESSION: 1. Unchanged left lung base ground-glass opacities which may represent persiste nt atypical infection versus scarring. 2. Stable 4.8 cm right renal cyst. 3. No acute findings in the abdomen or pelvis as imaged. Reading Location: [facility]
[2025-03-06 16:00] VITALS: BP 141/87; PULSE 55; RESP 18; TEMP 36.8; O2SAT 93
== END 2025-03-06 16:24 | disposition home or self-care (01) ==
LOC: ED 12:21
PROVIDERS: Emergency Provider Emergency Medicine; PCP Family Medicine; Visit Provider Emergency Medicine
DX: R11.2 Nausea with vomiting, unspecified (principal); E66.01 Morbid (severe) obesity due to excess calories; Z68.42 Body mass index [BMI] 45.0-49.9, adult; R19.7 Diarrhea, unspecified; R10.84 Generalized abdominal pain; R71.8 Other abnormality of red blood cells; R73.9 Hyperglycemia, unspecified; E86.0 Dehydration; I10 Essential (primary) hypertension; Z79.899 Other long term (current) drug therapy
CPT/HCPCS: 74177; 80048; 85025; 96361; 96374; 99285; Q9967; A4216; J2405